=== PATIENT | male | born 1945 | race Caucasian/White ===

== ENCOUNTER → 2016-04-18 | Outpatient (CLI) | payer BC ==
[~2016-04-18] MED LIST: ACET325T96 PO; AMLO-114 PO; ATOR-22 PO; BICA50TA2 PO; CALC667C4 PO; CALCTAB5 PO; DENOINJ INJ; GADAVIST IV PRN; GLC500 PO; LEUP1INJ6 INJ; LISI40TA PO; METO1TAB70 PO; MIRT1TAB27 PO; MULT-506 PO; OXYC1TAB3 PO; PRLSR20 PO; RISP1TAB18 PO; SERT-234 PO; SERT1TAB92 PO; TERA1CAP63 PO; ZOLP10TA6 PO; ZOLP5TAB6 PO
--- NOTE | 2016-04-18 11:43 | DIAGNOSTIC IMAGING REPORT ---
MRI OF THE LUMBAR SPINE COMBO CLINICAL HISTORY: Prostate cancer. Metastatic bone disease. COMPARISON STUDY: Abdominal CT scan and nuclear bone scan dated 11/16/2014. MRI of the abdomen and pelvis dated 08/08/2015. TECHNIQUE: MRI of the lumbar spine is performed utilizing various T1 and T2-weighted sequences in the axial and sagittal planes. Contrast-enhanced sequences are acquired following the IV administration of 11.1 cc of Gadavist. FINDINGS: Lumbar spine: Vertebral body height and alignment are maintained throughout the lumbar spine. Marrow signal intensity is markedly heterogeneous. Large hemangiomas are seen in the bodies of L4 and L5. Additional T1 hyperintense lesions in the body of T12, L2, and S1 also likely represent small hemangiomas. No definite marrow replacement lesion is identified to confirm the presence of bony metastatic disease in the lumbar spine. The transverse and spinous processes appear intact. There is no evidence of spondylolysis. Intervertebral discs: There is degenerative disc desiccation and loss of height seen throughout the lumbar spine. This is greatest at L4-L5. Spinal cord: The visualized spinal cord is normal in morphology and signal intensity. The conus medullaris terminates at the T12-L1 interspace. The nerve roots of the cauda equina are normal in morphology. No abnormal enhancement is identified on the postcontrast images. L1-L2: Unremarkable. L2-L3: Unremarkable. L3-L4: The central canal and neural foramina are patent. Facet arthropathy is of no consequence. There is significant epidural lipomatosis seen posterior to the L4 vertebral body. This causes moderate acquired compromise of the central canal posterior to L4 with a minimum AP diameter of 6 mm. L4-L5: There is a broad-based posterior disc bulge eccentric to the left with annular fissure. In conjunction with hypertrophy of the ligamentum flavum and epidural lipomatosis, there is qybyikfq-fl-udpwer acquired compromise of the central canal at this level. The minimum AP diameter measures up to 6.5 mm. There is bilateral subarticular stenosis, left greater than right, with probable impingement on the exiting left L4 nerve root. Facet arthropathy causes fqmubkkn-lk-ybazlf left and moderate right neural foraminal stenosis. L5-S1: There is significant epidural lipomatosis at L5-S1. This causes ndvuqybc-tz-lkcwkh central canal stenosis at the level of L5 with a minimum AP diameter of 5 mm. A large disc protrusion lateral to the right causes severe right-sided subarticular stenosis and likely impinges on the exiting right L5 nerve root. Facet arthropathy causes dbdlrect-kj-bqsssk right and mild left neural foraminal stenosis. Sacrum: Partially imaged sacrum is normal in morphology. A Tarlov cyst is noted at the level of S2-S3 and measures 1.3 cm. Soft tissues: There is mild fatty atrophy of the paraspinous musculature. There is markedly asymmetric atrophy of the partially imaged right kidney with cuedfxcr-ok-csuybq right-sided hydronephrosis. No retroperitoneal lymphadenopathy is seen. Productive change is noted in the perirectal fat. IMPRESSION: 1. Marrow signal intensity is heterogeneous. Several hemangiomas are identified. 2. There is no definite evidence of osseous metastatic disease involving the lumbosacral spine. 3. Epidural lipomatosis in the lower lumbar region contributes to significant acquired compromise of the central canal. See above. 4. Multilevel lumbosacral spondylosis. See above discussion for detailed ssbii-tk-tbgtu analysis. 5. There is markedly asymmetric cortical atrophy of the hydronephrotic right kidney as compared to the left. This was only partially visualized and was also seen on prior examinations. Dictated: 04/18/2016 10:10 AM Transcribed: 04/18/2016 11:43 AM Bailey Electronically signed by: Jesus Alberto Briones M.D. 04/18/2016 12:09 PM Dictated Date/Time: 04/18/2016 10:10 AM
== END | disposition home or self-care (01) ==
LOC: C.MRI 08:37
PROVIDERS: ATTEND Nurse Practitioner Family
DX: C61 Malignant neoplasm of prostate (principal); C79.51 Secondary malignant neoplasm of bone

== ENCOUNTER → 2016-05-17 | Outpatient (CLI) | payer BC ==
[~2016-05-17] MED LIST changes: -GADAVIST IV PRN; +METO-648 PO; -METO1TAB70 PO
[2016-05-17 10:05] LABS: ALT/SGPT 27 U/L (12-78); BLOOD UREA NITROGEN 16 mg/dl (7-18); BUN/CREATININE RATIO 13.2 (10-20); CALCIUM 8.8 mg/dl (8.5-10.1); CARBON DIOXIDE 27 mmol/L (21-32); CHLORIDE 105 mmol/L (98-107); GLUCOSE 133 mg/dl (70-99); POTASSIUM 3.4 mmol/L (3.5-5.1); SODIUM 142 mmol/L (136-145)
[2016-05-17 10:08] LABS: ALB/GLOB RATIO 1.4 (0.9-2); ALKALINE PHOSPHATASE 37 U/L (45-117); AST/SGOT 16 U/L (15-37)
== END | disposition home or self-care (01) ==
LOC: C.LAB 08:27
PROVIDERS: ATTEND Urology
DX: N13.30 Unspecified hydronephrosis (principal); C61 Malignant neoplasm of prostate

== ENCOUNTER → 2016-05-27 | Outpatient (CLI) | payer BC ==
[~2016-05-27] MED LIST changes: +OPTIRAY 320 IV PRN
--- NOTE | 2016-05-27 10:00 | DIAGNOSTIC IMAGING REPORT ---
CT SCAN OF THE ABDOMEN AND PELVIS WITH IV CONTRAST CLINICAL HISTORY: Prostate cancer. COMPARISON STUDY: Abdominal CT dated 11/16/2014. Abdominal and pelvic MRI dated 08/08/2015. MRI of lumbar spine dated 04/18/2016. TECHNIQUE: Following the IV administration of 119 cc of Optiray 320, CT scan of the abdomen and pelvis is performed from the lung bases to the proximal femora. Images reviewed in the axial, sagittal, and coronal planes. IV contrast was administered without complication. CT DOSE: 1549.93 mGy.cm FINDINGS: Lung bases: The heart is mildly enlarged and without pericardial effusion. The coronary arteries and mitral annulus are densely calcified. There is a tiny hiatal hernia. The lung bases are clear noting dependent atelectasis. Liver: The contrast-enhanced liver is normal in size, contour, and attenuation. A 10 mm cyst is seen in the right lobe on image #102. There is no intrahepatic biliary ductal dilatation. The hepatic veins and portal veins are patent. Gallbladder: Unremarkable. Spleen: Normal in size and attenuation. Pancreas: There is moderate glandular atrophy of the pancreas. Numerous small parenchymal calcifications suggest a history of chronic pancreatitis. Adrenal glands: Unremarkable. Kidneys: There is markedly asymmetric cortical atrophy of the right kidney as compared to the left. There is diminished perfusion of the left right kidney as compared to left. There is severe right hydroureteronephrosis, with the right ureter dilated to a soft tissue lesion which encases the distal right ureter. This has not appreciably changed in appearance from prior examinations. This is best seen on axial images #[id number] and extends at least 2.5 cm in length. There is moderate left hydroureteronephrosis, similar appearance to the 08/08/2015 examination. This is dilated to soft tissue nodularity at the left trigone of the bladder. Abdominal vasculature: The abdominal aorta is normal in course and caliber noting moderate atherosclerotic calcification. Bowel: The small bowel and colon are normal in course and caliber. The appendix is normal. Peritoneum: There is no intraperitoneal free air or abdominal ascites. There is a fat-containing umbilical hernia. Foci of induration within the ventral abdominal pannus are likely related to subcutaneous injections. Lymphadenopathy: There is no retroperitoneal, mesenteric, pelvic sidewall, or inguinal lymphadenopathy. Pelvic viscera: The prostate is diminutive and heterogeneous. Nodularity along the superior margin of the prostate likely represents median lobe hypertrophy. The wall appears thickened and trabeculated suggesting the sequelae of chronic outlet obstruction. Focal soft tissue thickening and nodularity along the posterior bladder wall likely represents urothelial neoplasm. This involves the trigone bilaterally. Skeletal structures: The skeletal structures are osteopenic. There is an osteoblastic lesion identified in the sacrum on image #388. This is new from 11/16/2014. No additional osteoblastic lesions are clearly identified. There is mild to moderate lumbosacral spondylosis. Several bone islands are again noted throughout the pelvis. IMPRESSION: 1. There is no evidence of progressive metastatic disease as compared to the 08/08/2015 examinations. 2. The prostate is diminutive and heterogeneous. Median lobe hypertrophy is suspected. No discrete prostate lesion is identified by CT. 3. The right kidney is markedly atrophic and there is severe right hydroureteronephrosis, unchanged from prior studies. This is likely secondary to an obstructing soft tissue lesion involving the distal right ureter and bladder. 4. Moderate left hydroureteronephrosis is similar to 08/08/2015. This is likely related to an obstructing soft tissue lesion involving the posterior bladder wall and the left trigone. 5. A sclerotic metastatic lesion in the lower sacrum is unchanged from previous. No additional osteoblastic lesions are clearly identified. Electronically signed by: Jesus Alberto Briones M.D. 05/27/2016 9:58 AM Dictated Date/Time: 05/27/2016 9:38 AM
== END | disposition home or self-care (01) ==
LOC: C.CTS 09:11
PROVIDERS: ATTEND Urology
DX: C61 Malignant neoplasm of prostate (principal); N13.30 Unspecified hydronephrosis; M89.9 Disorder of bone, unspecified

== ENCOUNTER → 2016-05-31 | Outpatient (CLI) | payer BC ==
[~2016-05-31] MED LIST changes: -OPTIRAY 320 IV PRN
[2016-05-31 09:54] LABS: BLOOD UREA NITROGEN 16 mg/dl (7-18); BUN/CREATININE RATIO 14.5 (10-20)
== END | disposition home or self-care (01) ==
LOC: C.LAB 08:24
PROVIDERS: ATTEND Urology
DX: D49.4 Neoplasm of unspecified behavior of bladder (principal); N13.30 Unspecified hydronephrosis; C61 Malignant neoplasm of prostate; N28.9 Disorder of kidney and ureter, unspecified

== ENCOUNTER 2016-07-03 14:19 | Emergency (ER) | payer BC ==
[~2016-07-03] VITALS: Ht 168.9 cm; Wt 111.5 kg
[~2016-07-03 14:19] MED LIST changes: -AMLO-114 PO; -ATOR-22 PO; -CALC667C4 PO; -DENOINJ INJ; -GLC500 PO; -LEUP1INJ6 INJ; -MIRT1TAB27 PO; -OXYC1TAB3 PO; -SERT-234 PO; -ZOLP10TA6 PO
[2016-07-03 14:26] VITALS: TEMP 36.5; Ht 168.9 cm; Wt 111.5 kg
--- NOTE | 2016-07-03 14:51 | EMERGENCY ROOM VISIT NOTE ---
History Report prepared by Ludmila: Souleymane Fernandez Under the Supervision of: Dr. Tu Roque D.O. First contact with patient: 14:41 Chief Complaint: HIP PAIN Stated Complaint: RIGHT HIP PAIN/POPPING History of Present Illness The patient is a 70 year old male with a history of prostate cancer who presents to the Emergency Room with complaints of sudden right hip pain that started prior to arrival today. He states that he was lifting something heavy today and heard a snap in his right hip. The patient has had right hip pain since then, and he says that the pain is worsened when he stands up and puts pressure on his right leg. Currently, he says that he does not have any hip pain when staying still. The patient denies any radiation of pain, back pain, or leg pain. He also denies any leg swelling, redness, or numbness. He rates his pain as a 6 out of 10 in severity with movement. The patient has not taken any medications for the pain. He says that he has not had any recent falls. It was noted that the patient takes a medication for his cancer that makes him more susceptible to bone fractures. The patient is on hormone therapy for his prostate. He does not take any blood thinners. Source of History: patient Onset: Prior to arrival today Position: other (right hip) Symptom Intensity: 6/10 pain Timing: other (sudden) Modifying Factors (Worsening): movement Associated Symptoms: No back pain, No numbness (leg) Note: Associated symptoms: Denies radiation of pain, leg pain, leg redness or swelling. Review of Systems See HPI for pertinent positives & negatives. A total of 10 systems reviewed and were otherwise negative. Past Medical & Surgical Medical Problems: (1) HTN (hypertension) (2) Hypertension Nos (3) IBS (irritable bowel syndrome) Family History Diabetes mellitus FH: heart disease FHx: gallbladder disease Kidney disease Kidney stones Social History Smoking Status: Former Smoker Alcohol Use: occasionally Drug Use: none Marital Status: in relationship Housing Status: lives with significant other Occupation Status: employed Current/Historical Medications Scheduled Acetaminophen Tab (Tylenol), 650 MG PO PRN Calcium Carbonate (Caltrate 600), 1 TAB PO DAILY Denosumab (Xgeva), 1 DOSE INJ [id number] Leuprolide Acetate (6 Month) (Lupron Depot), 1 DOSE INJ [id number] Lisinopril (Zestril), 40 MG PO QAM Metformin HCl (Metformin HCl), 1 TAB PO BID Metoprolol Succinate (Toprol Xl), 200 MG PO QAM Multivitamin (Multivitamin), 1 TAB PO QAM Omeprazole (Prilosec), 20 MG PO QAM Sertraline HCl (Sertraline HCl), 100 MG PO QAM Terazosin Hcl (Hytrin), 10 MG PO HS Zolpidem Tartrate (Zolpidem Tartrate), 10 MG PO HS Scheduled PRN Oxycodone Immediate Rel Tab (Roxicodone Ir), 1-2 TAB PO Q4H PRN for Severe Pain Allergies Coded Allergies: Cat Dander (Verified Allergy, Intermediate, itchy eyes, congestion,ASTHMA , 07/03/16) Dust (Verified Allergy, Unknown, MILD ASTHMA SYMPTOMS, 07/03/16) Dairy (Unverified Adverse Reaction, Unknown, DIARRHEA-EATS DAIRY BUT AVOIDS MILK, 07/03/16) Physical Exam Vital Signs Date Time Temp Pulse Resp B/P Pulse Ox O2 Delivery O2 Flow Rate FiO2 07/03/16 16:10 87 18 144/97 98 07/03/16 14:26 36.5 91 18 126/84 98 Room Air Physical Exam GENERAL: Patient is awake, alert, and in no acute distress. Patient is resting comfortably and showing no signs of anxiety EYES: Mild periorbital edema noted, left greater than right. PERRL. EOMI. EARS, NOSE, MOUTH AND THROAT: The nose is without any evidence of any deformity. Mucous membranes are moist tongue is midline NECK: The neck is nontender and supple. RESPIRATORY: Normal respiratory effort is noted there is no evidence of wheezing rhonchi or rales CARDIOVASCULAR: Regular rate and rhythm noted there no murmurs rubs or gallops normal S1 normal S2 GASTROINTESTINAL: The abdomen is soft. Bowel sounds are present in all quadrants. Abdomen is nontender BACK: No midline tenderness or or step-off noted range of motion in flexion extension as well as rotation no signs of muscle spasm noted MUSCULOSKELETAL/EXTREMITIES: Pain over lateral aspect of right hip, no deformity or shortening noted. No pain with range of motion testing. SKIN: There is no obvious evidence of any rash. There are no petechiae, pallor or cyanosis noted. NEUROLOGIC: Patient is awake alert and oriented x3. Medical Decision & Procedures ER Provider Diagnostic Interpretation: X-ray results as stated below per interpretation by me and the radiologist. RIGHT PELVIS/UNILATERAL HIP 2-3VIEWS CLINICAL HISTORY: right hip pain Right pain COMPARISON: None. DISCUSSION: The bones and joint spaces appear intact. There is no evidence of fracture, dislocation or bony disease. There is no evidence for soft tissue swelling. Mild degenerative change of the hips bilaterally. No evidence for acetabular protrusion IMPRESSION: Mild degenerative change of the hips bilaterally. No acute process. Electronically signed by: Maynor Pineda M.D. 07/03/2016 3:23 PM Dictated Date/Time: 07/03/2016 3:19 PM ED Course 1445: The patient was evaluated in room B5. A complete history and physical examination were performed. 1558: Upon reevaluation, the patient is resting comfortably. I discussed the results and treatment plan with him. He verbalized agreement of the treatment plan. He was discharged home. Medical Decision Prior records reviewed and summarized above. Triage Nursing notes reviewed and agree them. Differential diagnosis: Etiologies such as fracture, dislocation, neurovascular compromise, compartment syndrome, soft tissue injury, as well as others were entertained. The patient is a 70-year-old male who presented to the emergency department for an evaluation of right hip pain. The patient was twisting when he heard an audible pop in his right hip. He came to the emergency department with lateral right hip pain. The patient had good range of motion of the hip and x-rays did not reveal any acute bony abdomen abnormalities. He did not wish to have any pain medication at this time because he states at rest he has no pain. He has no skin changes overlying and has no swelling. I discussed the patient's radiographic studies with him. At this time I feel this likely a musculoskeletal injury or possibly a tendinous injury. He was encouraged to rest and avoid any strenuous activity. He doesn't a history of prostate cancer so it is always possible this represents a subclinical pathologic fracture but I highly doubt it because the patient is able to ambulate without difficulty at this time. He was encouraged to rest and avoid any strenuous activity. He was also encouraged to continue all medications as prescribed and follow-up with his primary care physician. He was encouraged to have further imaging such as CAT scan or MRI if symptoms worsen or persist longer than expected. Impression Primary Impression: Hip sprain Scribe Attestation The scribe's documentation has been prepared under my direction and personally reviewed by me in its entirety. I confirm that the note above accurately reflects all work, treatment, procedures, and medical decision making performed by me. Departure Information Dispostion Home / Self-Care Prescriptions Oxycodone Immediate Rel Tab (ROXICODONE IR) 5 Mg Tab 1-2 TAB PO Q4H Y for Severe Pain, #24 TAB Prov: Tu Roque, DO 07/03/16 Referrals Meghan Tompkins M.D. (PCP) Forms HOME CARE DOCUMENTATION FORM, IMPORTANT VISIT INFORMATION, WORK / SCHOOL INSTRUCTIONS Patient Instructions ED Sprain Hip, My [facility] Additional Instructions Rest and avoid any strenuous activity. Call your family to schedule follow- up appointment. I would recommend further testing such as an MRI if symptoms do not improve. Problem Qualifiers Primary Impression: Hip sprain Encounter type: initial encounter Laterality: right Qualified Codes: S73.101A - Unspecified sprain of right hip, initial encounter
[2016-07-03] MEDS ORDERED: GLC500 PO (15:14)
[2016-07-03] MEDS ORDERED: CALC667C4 PO (15:14)
[2016-07-03] MEDS ORDERED: CALCTAB5 PO (15:14)
[2016-07-03] MEDS ORDERED: LEUP1INJ6 INJ (15:16)
[2016-07-03] MEDS ORDERED: DENOINJ INJ (15:16)
--- NOTE | 2016-07-03 15:24 | DIAGNOSTIC IMAGING REPORT ---
RIGHT PELVIS/UNILATERAL HIP 2-3VIEWS CLINICAL HISTORY: right hip pain Right pain COMPARISON: None. DISCUSSION: The bones and joint spaces appear intact. There is no evidence of fracture, dislocation or bony disease. There is no evidence for soft tissue swelling. Mild degenerative change of the hips bilaterally. No evidence for acetabular protrusion IMPRESSION: Mild degenerative change of the hips bilaterally. No acute process. Electronically signed by: Maynor Pineda M.D. 07/03/2016 3:23 PM Dictated Date/Time: 07/03/2016 3:19 PM
[2016-07-03] MEDS ORDERED: OXYC1TAB3 PO (15:58)
[2016-07-03 16:10] VITALS: BP 144/97; PULSE 87; O2SAT 98
== END 2016-07-03 16:12 | disposition home or self-care (01) ==
LOC: C.EDB 14:20
DX: S73.101A Unspecified sprain of right hip, initial encounter (principal); I10 Essential (primary) hypertension; K58.9 Irritable bowel syndrome, unspecified; Z79.84 Long term (current) use of oral hypoglycemic drugs; Z79.899 Other long term (current) drug therapy; Z85.46 Personal history of malignant neoplasm of prostate; Z87.891 Personal history of nicotine dependence; Z82.49 Family history of ischemic heart disease and other diseases of the circulatory system; Z83.3 Family history of diabetes mellitus; Z83.79 Family history of other diseases of the digestive system; Z84.1 Family history of disorders of kidney and ureter; X50.9XXA Other and unspecified overexertion or strenuous movements or postures, initial encounter

== ENCOUNTER 2016-08-20 17:07 | Inpatient (IN) | payer BC ==
[~2016-08-20] VITALS: Ht 167.6 cm; Wt 107.5 kg
[~2016-08-20 17:07] MED LIST changes: -BICA50TA2 PO; +DENOINJ INJ; +GLC500 PO; +LEUP1INJ6 INJ; -METO-648 PO; +METO1TAB70 PO; +OXYC1TAB3 PO; -RISP1TAB18 PO
[2016-08-20] MEDS ORDERED: SODIUM CHLORIDE 0.9% 1000ML 1,000 ML IV STA (17:18)
[2016-08-20] MEDS ORDERED: AMLO-114 PO (17:36)
[2016-08-20] MEDS ORDERED: ZOLP10TA6 PO (17:36)
[2016-08-20] MEDS ORDERED: MIRT1TAB27 PO (17:36)
[2016-08-20] MEDS ORDERED: SERT-234 PO (17:36)
[2016-08-20] MEDS ORDERED: ATOR-22 PO (17:36)
[2016-08-20 17:51] LABS: BASO % 0.3 %; BASO ABS # 0.03 K/uL (0-0.2); COMPLETE YES; EOS % 1.7 %; HEMATOCRIT 37.9 % (42-52); IG% 0.5 %; LYMPH % 20.4 %; MEAN CELL VOLUME 88.3 fL (80-100); MEAN CORPUSCULAR HGB CONC 35.1 g/dl (32-36); MEAN PLATELET VOLUME 10.3 fL (7.4-10.4); MONO % 10.1 %; PLATELET COUNT 194 K/uL (130-400); RED BLOOD COUNT 4.29 M/uL (4.7-6.1); WHITE BLOOD COUNT 10.77 K/uL (4.8-10.8)
--- NOTE | 2016-08-20 17:54 | DIAGNOSTIC IMAGING REPORT ---
CHEST ONE VIEW PORTABLE CLINICAL HISTORY: Weakness. COMPARISON STUDY: Chest radiograph December 05, 2014. FINDINGS: There is no pneumothorax or pleural effusion. Mild elevation of the right hemidiaphragm is unchanged. There is no evidence of pulmonary edema. Cardiomediastinal silhouette is stable. IMPRESSION: No acute cardiopulmonary findings. Electronically signed by: Americo Woodard M.D. 08/20/2016 5:52 PM Dictated Date/Time: 08/20/2016 5:52 PM
[2016-08-20 18:02] LABS: INR 1.1 (0.9-1.1); PARTIAL THROMBOPLASTIN RATIO 0.9; PROTHROMBIN TIME (PATIENT) 11.4 SECONDS (9.0-12.0)
[2016-08-20 18:08] LABS: BUN/CREATININE RATIO 11.2 (10-20); CALCIUM 9.3 mg/dl (8.5-10.1); CREATININE 3.3 mg/dl (0.60-1.40); POTASSIUM 3.5 mmol/L (3.5-5.1)
[2016-08-20 18:15] LABS: URINE APPEARANCE CLEAR (CLEAR); URINE BILIRUBIN NEG (NEG); URINE COLOR YELLOW; URINE NITRITE NEG (NEG); URINE SPECIFIC GRAVITY 1.009 (1.000-1.030); UROBILINOGEN NEG (NEG)
[2016-08-20 18:16] LABS: MANUAL MICROSCOPIC REQUIRED? NO; REVIEW REQ? NO
[2016-08-20] MEDS ORDERED: METOPROLOL TARTRATE 1 MG/ML VIAL IV STA (18:16)
[2016-08-20 18:19] LABS: CKMB/CK RATIO 2.1 (0-3.0); THYROID STIMULATING HORMONE 3.05 uIu/ml (0.300-4.500)
[2016-08-20] MEDS ORDERED: GLUCOSE 40% GEL 15 GM TUBE PO PRN (20:30)
[2016-08-20] MEDS ORDERED: ACETAMINOPHEN 325 MG TAB PO PRN (20:30)
[2016-08-20] MEDS ORDERED: MoRPHine SULFATE 2 MG/ML CARP IV PRN (20:30)
[2016-08-20] MEDS ORDERED: ONDANSETRON INJ 2 MG/ML 2 ML VIAL IV PRN (20:30)
[2016-08-20] MEDS ORDERED: GLUCAGON FOR INJ 1 MG VIAL SQ PRN (20:30)
[2016-08-20] MEDS ORDERED: DEXTROSE 50% 50 ML SYR IV PRN (20:30)
[2016-08-20] MEDS ORDERED: NITROGLYCERIN 0.4 MG SL PER TAB CHARGE SL PRN (20:30)
[2016-08-20] MEDS ORDERED: GLUCOSE 10 TABS/TUBE PO PRN (20:30)
[2016-08-20] MEDS ORDERED: PHARMACY GLYCEMIC MGMT CONSULT PRN (20:44)
[2016-08-20] MEDS: INSULIN ASPART 100 UNITS/ML 3 ML PEN SC SCH (21:00)
[2016-08-20] MEDS ORDERED: INSULIN GLARGINE SOLOSTAR 100 UNITS/ML 3 ML PEN SC SCH (21:00)
[2016-08-20] MEDS: ZOLPIDEM TARTRATE 10 MG TAB PO SCH (21:00)
[2016-08-20] MEDS ORDERED: HEPARIN 25000 UNIT/500 ML D5W ONE (21:57)
[2016-08-20] MEDS ORDERED: HEPARIN 25,000 UNIT/500ML D5W 500 ML IV PRN (22:00)
[2016-08-20] MEDS ORDERED: SODIUM CHLORIDE 0.9% 1000ML 1,000 ML IV SCH (22:30)
[2016-08-20] MEDS ORDERED: IV FLUIDS COMPLETED PRN (22:45)
[2016-08-20 23:16] VITALS: BP 164/109; PULSE 95; TEMP 37; O2SAT 96; Ht 167.6 cm; Wt 107.5 kg
[2016-08-20 23:53] VITALS: BP 160/102; PULSE 95; TEMP 36.9; O2SAT 97
[2016-08-20 23:59] VITALS: O2SAT 97
[2016-08-21] VITALS (8 sets, daily range): BP systolic 133–162; BP diastolic 86–101; PULSE 88–106; TEMP 36.8–37.4; O2SAT 91–97
[2016-08-21] MEDS: ATORVASTATIN 20 MG TAB PO SCH ×2 (00:02→21:12)
[2016-08-21 00:20] LABS: CKMB/CK RATIO 2.7 (0-3.0)
--- NOTE | 2016-08-21 00:50 | EMERGENCY ROOM VISIT NOTE ---
History Report prepared by Ludmila: Rhiannon Hong Under the Supervision of: Dr. Saul Gilmore M.D. First contact with patient: 17:18 Chief Complaint: IRREGULAR HEARTBEAT Stated Complaint: CARDIAC, NAUSEA Nursing Triage Summary: Pt arrives to ER via ALS from [facility] primary care office. Pt c/o nausea off and on since Friday, seen at PCP today and found to have new onset a-fib (rate 80-100). Pt denies chest pain and shortness of breath. History of Present Illness The patient is a 70 year old male who presents to the Emergency Room with complaints of a persistent irregular heart beat that began prior to arrival. The patient states that over the last few days he has not been feeling well, reporting a decrease in appetite, nausea, and diarrhea. He states that he saw a provider at [facility] and was found to be in a new onset atrial fibrillation. The patient states that he was then sent to the emergency department for further evaluation and treatment. He additionally notes that he has had an elevated blood pressure the last few days. The patient states that he was just started on Norvasc. He denies any alcohol use. Pt denies LOC, headache, fevers, chills, diaphoresis, visual changes, neck pain, chest pain, heart palpitations, breathing difficulties, vomiting, abdominal pain, back pain , melena, hematochezia, urinary symptoms, numbness, weakness, lymphadenopathy, rash, or other complaints. Source of History: patient Onset: prior to arrival Position: other (heart) Quality: other (irregular heart beat) Timing: other (persistent) Associated Symptoms: + nausea, + diarrhea Note: Associated Symptoms: decrease in appetite Review of Systems See HPI for pertinent positives and negatives. A total of ten systems were reviewed and were otherwise negative. Past Medical & Surgical Medical Problems: (1) Atrial fibrillation, new onset (2) HTN (hypertension) (3) Hypertension Nos (4) IBS (irritable bowel syndrome) Family History Diabetes mellitus FH: heart disease FHx: gallbladder disease Kidney disease Kidney stones Social History Smoking Status: Former Smoker Alcohol Use: occasionally Drug Use: none Marital Status: in relationship Housing Status: lives with significant other Occupation Status: employed Current/Historical Medications Scheduled Acetaminophen Tab (Tylenol), 650 MG PO PRN Amlodipine (Norvasc), 10 MG PO DAILY Atorvastatin (Lipitor), 20 MG PO HS Denosumab (Xgeva), 1 DOSE INJ [id number] Leuprolide Acetate (6 Month) (Lupron Depot), 1 DOSE INJ [id number] Lisinopril (Zestril), 40 MG PO QAM Metformin HCl (Metformin HCl), 1 TAB PO BIDM Metoprolol Succinate (Toprol Xl), 200 MG PO QAM Omeprazole (Prilosec), 10 MG PO DAILY Sertraline (Zoloft), 100 MG PO QAM Zolpidem Tartrate (Zolpidem Tartrate), 10 MG PO HS Allergies Coded Allergies: Cat Dander (Verified Allergy, Severe, CAN CAUSE ASTHMA ATTACK-itchy eyes, congestion, 08/20/16) Dust (Verified Allergy, Unknown, MILD ASTHMA SYMPTOMS, 08/20/16) Dairy (Verified Adverse Reaction, Unknown, DIARRHEA-EATS DAIRY BUT AVOIDS MILK, 08/20/16) Physical Exam Vital Signs Date Time Temp Pulse Resp B/P (MAP) Pulse Ox O2 Delivery O2 Flow Rate FiO2 08/20/16 18:16 98 160/80 08/20/16 18:00 160/80 08/20/16 17:54 109 22 183/130 98 08/20/16 17:34 95 08/20/16 17:24 98 Room Air 08/20/16 17:13 99 Room Air 08/20/16 17:13 37.0 83 16 177/117 99 Room Air 08/20/16 17:13 99 Room Air Physical Exam GENERAL: Awake, alert, well-appearing, in no distress HENT: Normocephalic, atraumatic. Oropharynx unremarkable. EYES: Normal conjunctiva. Sclera non-icteric. NECK: Supple. No nuchal rigidity. FROM. No JVD. RESPIRATORY: Clear to auscultation. CARDIAC: borderline tachycardic rate, irregular rhythm. Extremities warm and well perfused. Pulses equal. ABDOMEN: Soft, non-distended. No tenderness to palpation. No rebound or guarding. No masses. RECTAL: Deferred. MUSCULOSKELETAL: Chest examination reveals no tenderness. The back is symmetrical on inspection without obvious abnormality. There is no CVA tenderness to palpation. No joint edema. LOWER EXTREMITIES: Calves are equal size bilaterally and non-tender. 1+ lower extremity edema. No discoloration. NEURO: Normal sensorium. No sensory or motor deficits noted. SKIN: No rash or jaundice noted. Medical Decision & Procedures ER Provider Diagnostic Interpretation: X-ray: Per my interpretation, radiologist review. CHEST ONE VIEW PORTABLE CLINICAL HISTORY: Weakness. COMPARISON STUDY: Chest radiograph December 05, 2014. FINDINGS: There is no pneumothorax or pleural effusion. Mild elevation of the right hemidiaphragm is unchanged. There is no evidence of pulmonary edema. Cardiomediastinal silhouette is stable. IMPRESSION: No acute cardiopulmonary findings. Electronically signed by: Americo Woodard M.D. 08/20/2016 5:52 PM Dictated Date/Time: 08/20/2016 5:52 PM Laboratory Results 08/20/16 17:20 Red Blood Count 4.29, Mean Corpuscular Volume 88.3, Mean Corpuscular Hemoglobin 31.0, Mean Corpuscular Hemoglobin Concent 35.1, Mean Platelet Volume 10.3, Neutrophils (%) (Auto) 67.0, Lymphocytes (%) (Auto) 20.4, Monocytes (%) (Auto) 10.1, Eosinophils (%) (Auto) 1.7, Basophils (%) (Auto) 0.3, Neutrophils # (Auto ) 7.22, Lymphocytes # (Auto) 2.20, Monocytes # (Auto) 1.09, Eosinophils # (Auto ) 0.18, Basophils # (Auto) 0.03 08/20/16 17:20 Test 08/20/16 00:00 08/20/16 17:20 08/20/16 18:00 Urine Random Creatinine 40.0 mg/dl Urine Random Sodium 73 mEq/L White Blood Count 10.77 K/uL (4.8-10.8) Red Blood Count 4.29 M/uL (4.7-6.1) Hemoglobin 13.3 g/dL (14.0-18.0) Hematocrit 37.9 % (42-52) Mean Corpuscular Volume 88.3 fL (80-100) Mean Corpuscular Hemoglobin 31.0 pg (25-34) Mean Corpuscular Hemoglobin Concent 35.1 g/dl (32-36) Platelet Count 194 K/uL (130-400) Mean Platelet Volume 10.3 fL (7.4-10.4) Neutrophils (%) (Auto) 67.0 % Lymphocytes (%) (Auto) 20.4 % Monocytes (%) (Auto) 10.1 % Eosinophils (%) (Auto) 1.7 % Basophils (%) (Auto) 0.3 % Neutrophils # (Auto) 7.22 K/uL (1.4-6.5) Lymphocytes # (Auto) 2.20 K/uL (1.2-3.4) Monocytes # (Auto) 1.09 K/uL (0.11-0.59) Eosinophils # (Auto) 0.18 K/uL (0-0.5) Basophils # (Auto) 0.03 K/uL (0-0.2) RDW Standard Deviation 40.7 fL (36.4-46.3) RDW Coefficient of Variation 12.7 % (11.5-14.5) Immature Granulocyte % (Auto) 0.5 % Immature Granulocyte # (Auto) 0.05 K/uL (0.00-0.02) Prothrombin Time 11.4 SECONDS (9.0-12.0) Prothromb Time International Ratio 1.1 (0.9-1.1) Activated Partial Thromboplast Time 24.4 SECONDS (21.0-31.0) Partial Thromboplastin Ratio 0.9 Anion Gap 12.0 mmol/L (3-11) Est Creatinine Clear Calc Drug Dose 23.8 ml/min Estimated GFR () 20.6 Estimated GFR (Non- 17.8 BUN/Creatinine Ratio 11.2 (10-20) Calcium Level 9.3 mg/dl (8.5-10.1) Magnesium Level 2.0 mg/dl (1.8-2.4) Total Bilirubin 0.8 mg/dl (0.2-1) Direct Bilirubin 0.2 mg/dl (0-0.2) Aspartate Amino Transf (AST/SGOT) 19 U/L (15-37) Alanine Aminotransferase (ALT/SGPT) 36 U/L (12-78) Alkaline Phosphatase 45 U/L (45-117) Total Protein 7.2 gm/dl (6.4-8.2) Albumin 4.0 gm/dl (3.4-5.0) Thyroid Stimulating Hormone (TSH) 3.050 uIu/ml (0.300-4.500) Urine Color YELLOW Urine Appearance CLEAR (CLEAR) Urine pH 6.0 (4.5-7.5) Urine Specific [place] 1.009 (1.000-1.030) Urine Protein NEG (NEG) Urine Glucose (UA) NEG (NEG) Urine Ketones NEG (NEG) Urine Occult Blood 1+ (NEG) Urine Nitrite NEG (NEG) Urine Bilirubin NEG (NEG) Urine Urobilinogen NEG (NEG) Urine Leukocyte Esterase NEG (NEG) Urine WBC (Auto) 1-5 /hpf (0-5) Urine RBC (Auto) 0-4 /hpf (0-4) Urine Hyaline Casts (Auto) 0 /lpf (0-5) Urine Epithelial Cells (Auto) 5-10 /lpf (0-5) Urine Bacteria (Auto) NEG (NEG) Laboratory results reviewed by me Medications Administered Medications (Trade) Dose Ordered Sig/Jadon Route Start Time Stop Time Status Last Admin Dose Admin Sodium Chloride 1,000 ml @ 125 mls/hr Q8H STAT IV 08/20/16 17:18 08/20/16 22:54 DC 08/20/16 17:18 125 MLS/HR Metoprolol Tartrate (Lopressor Iv) 5 mg NOW STAT IV 08/20/16 18:16 08/20/16 18:18 DC 08/20/16 18:16 5 MG ECG Indication: other (irregular heart beat) Rate (beats per minute): 92 Rhythm: atrial fibrillation Findings: T-wave inversion (Anterolateral), prolonged QT Comparison ECG Date: 12/05/14 Change: When compared to EKG done on 12/05/14, anterolateral T wave inversions and atrial fibrillation are new. ED Course 1717: Ordered Sodium Chloride 1000 ml @ 125 mls/hr IV. 1725: The patient was evaluated in room C9. A complete history and physical exam was performed. 1815: Ordered Lopressor IV 5 mg IV. 1922: I reevaluated the patient and he is resting comfortably. I discussed the exam findings with him and I discussed the treatment plan. He verbalized complete understanding and agreement. He will be evaluated for further treatment. 1923: I discussed the patients case with Stefanie Biggs. She is going to evaluate the patient for further treatment. Medical Decision Triage Nursing notes reviewed. The patient's presentation and history were concerning for new onset afib,. Etiologies such as ectopy, cardiac dysrhythmia, electrolyte abnormality, thyroid dysfunction, pulmonary embolism, infection, gastrointestinal, as well as others were entertained. Patient was evaluated. His antihypertensive. He was in A. fib with a borderline rapid ventricular response. ECG did show some anterior lateral T- wave inversions. Chest imaging was ordered. He was given a dose of IV metoprolol. The patient had a mild anemia on CBC. His cardiac panel revealed acute renal failure. Cardiac markers are negative. Magnesium was unremarkable and his potassium was 3.5. Chest imaging did not reveal any acute findings. The patient will need further evaluation and management in the hospital. Consultation was placed with the [facility] hospitalist. The patient was evaluated promptly in the Emergency Room for further management. Anticoagulation ordered by internal medicine. Medication Reconciliation: I attest that I have personally reviewed the patient' s current medication list Blood pressure screening: Patient was found to have an elevated blood pressure and was referred to their primary doctor for recheck and further treatment. Consults Time Called: 1919 Consulting Physician: Stefanie Biggs Returned Call: 1923 I discussed the patients case with Stefanie Biggs. She is going to evaluate the patient for further treatment. Impression Primary Impression: New onset atrial fibrillation Additional Impression: Acute renal failure Scribe Attestation The scribe's documentation has been prepared under my direction and personally reviewed by me in its entirety. I confirm that the note above accurately reflects all work, treatment, procedures, and medical decision making performed by me. Departure Information Dispostion Being Evaluated By Hospitalist Referrals Meghan Tompkins M.D. (PCP) Problem Qualifiers
--- NOTE | 2016-08-21 03:34 | History and Physical ---
History & Physical Date & Time of Service: Aug 20, 2016 at 20:32 Chief Complaint: Cardiac, Nausea Primary Care Physician: Meghan Tompkins M.D. History of Present Illness Source: patient, partner, clinic records, hospital records 70 yo diabetic man presents as a transfer from the clinic for new onset atrial fibrillation. Two weeks ago he thought he saw some blood in his urine and went to the clinic for evaluation. He was empirically placed on Bactrim for 4 days until the results came back without infection at which time he stopped the Bactrim. Around this time he reports a couple days of diarrhea. He then states that about 4 days ago he began to feel general malaise and nausea with a decreased appetite. Some diarrhea was reported that was non-bloody, but he denies any vomiting. He has had urinary retention in the past in the setting of prostate cancer with known mets to the bladder. He has had a TURP but no prostatectomy; he is treated with Lupron injections. He reports some increased frequency of urination over the past two weeks and admits to incomplete voiding. Denies polyurina, hematuria, dysuria, pelvic or abdominal or flank pain and no fevers or chills. In the ER a Aaron was placed draining 1L of yellow fluid, however, following this he developed gross hematuria that was villeda red. The heparin, which had been started for new onset atrial fibrillation, was stopped and a Urology consult was placed. The patient reports that he arrived home from work 4 days ago and felt a fluttering in his chest. He reports ever since starting Norvasc and Metformin in Feb/Mar 2016 timeframe, he has noticed this fluttering in his chest which will awaken him from sleep on occasion. It was not associated with other symptoms and never occurred during the day. He currently denies any chest pain or shortness of breath and reports his diarrhea has been mild with only a couple of episodes in the last 24 hours. 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 , [id number], group IV Acute urinary retention, abnormal digital rectal exam Pretreatment PSA 5.67 Prostate biopsy 11/03/2014 Prostate volume 32 Prostate density 0.175 Status: Chronic (7) Spinal stenosis Status: Chronic (8) Urinary incontinence Status: Chronic (9) Urinary retention Status: Chronic Surgical Problems: (1) S/P TURP Status: Chronic Family History Diabetes mellitus FH: bladder cancer BROTHER FH: heart disease FHx: gallbladder disease Kidney disease Kidney stones Social History Smoking Status: Former Smoker Smokeless Tobacco Use: No Alcohol Use: socially Drug Use: none Marital Status: in relationship Housing status: lives with significant other Occupational Status: employed Immunizations History of Influenza Vaccine: Yes Influenza Vaccine Date: Nov 08, 2015 History of Tetanus Vaccine?: Yes Tetanus Immunization Date: Feb 18, 2007 History of Pneumococcal: Yes Pneumococcal Date: Sep 20, 2014 History of Hepatitis B Vaccine: No Multi-Drug Resistant Organisms History of MDRO: No Allergies Coded Allergies: Cat Dander (Verified Allergy, Severe, CAN CAUSE ASTHMA ATTACK-itchy eyes, congestion, 08/20/16) Dust (Verified Allergy, Unknown, MILD ASTHMA SYMPTOMS, 08/20/16) Dairy (Verified Adverse Reaction, Unknown, DIARRHEA-EATS DAIRY BUT AVOIDS MILK, 08/20/16) Home Medications Scheduled Acetaminophen Tab (Tylenol), 650 MG PO PRN Amlodipine (Norvasc), 10 MG PO DAILY Atorvastatin (Lipitor), 20 MG PO HS Denosumab (Xgeva), 1 DOSE INJ [id number] Leuprolide Acetate (6 Month) (Lupron Depot), 1 DOSE INJ [id number] Lisinopril (Zestril), 40 MG PO QAM Metformin HCl (Metformin HCl), 1 TAB PO BIDM Metoprolol Succinate (Toprol Xl), 200 MG PO QAM Omeprazole (Prilosec), 10 MG PO DAILY Sertraline (Zoloft), 100 MG PO QAM Zolpidem Tartrate (Zolpidem Tartrate), 10 MG PO HS Review of Systems At least ten systems were reviewed and negative except as indicated in HPI. Physical Exam Vital Signs Date Time Temp Pulse Resp B/P (MAP) Pulse Ox O2 Delivery O2 Flow Rate FiO2 08/20/16 18:16 98 160/80 08/20/16 18:00 160/80 08/20/16 17:54 109 22 183/130 98 08/20/16 17:34 95 08/20/16 17:24 98 Room Air 08/20/16 17:13 99 Room Air 08/20/16 17:13 37.0 83 16 177/117 99 Room Air 08/20/16 17:13 99 Room Air GEN: WNWD, in no acute distress, alert and appropriate HEENT: NC/AT, PERRL, normal sclerae/conjunctivae, MMM, pharynx non-acute, no LAD , trachea midline, no JVD CARDIO: irreg rhythm, S1/2 heard without m/g/r LUNGS: CTA bilaterally, no crackles, rales or wheezes, good diaphragmatic excursion ABD: soft, non-tender, non-distended, no rebound or guarding, +BS EXTREMITY: RP and DP palpable 2+ bilat, no LE swelling or edema, extremities are warm and well-perfused NEURO: CN 2-12 grossly intact, sensation intact throughout, (reflexes) BR 2/4 bilat, knee 2/4 bilat MUSC: 5/5 strength throughout, no gross focal deficits SKIN: warm and dry Diagnostics Laboratory Results Results Past 24 Hours Test 08/20/16 17:20 08/20/16 18:00 Range/Units White Blood Count 10.77 4.8-10.8 K/uL Red Blood Count 4.29 4.7-6.1 M/uL Hemoglobin 13.3 14.0-18.0 g/dL Hematocrit 37.9 42-52 % Mean Corpuscular Volume 88.3 80-100 fL Mean Corpuscular Hemoglobin 31.0 25-34 pg Mean Corpuscular Hemoglobin Concent 35.1 32-36 g/dl Platelet Count 194 130-400 K/uL Mean Platelet Volume 10.3 7.4-10.4 fL Neutrophils (%) (Auto) 67.0 % Lymphocytes (%) (Auto) 20.4 % Monocytes (%) (Auto) 10.1 % Eosinophils (%) (Auto) 1.7 % Basophils (%) (Auto) 0.3 % Neutrophils # (Auto) 7.22 1.4-6.5 K/uL Lymphocytes # (Auto) 2.20 1.2-3.4 K/uL Monocytes # (Auto) 1.09 0.11-0.59 K/uL Eosinophils # (Auto) 0.18 0-0.5 K/uL Basophils # (Auto) 0.03 0-0.2 K/uL RDW Standard Deviation 40.7 36.4-46.3 fL RDW Coefficient of Variation 12.7 11.5-14.5 % Immature Granulocyte % (Auto) 0.5 % Immature Granulocyte # (Auto) 0.05 0.00-0.02 K/uL Prothrombin Time 11.4 9.0-12.0 SECONDS Prothromb Time International Ratio 1.1 0.9-1.1 Activated Partial Thromboplast Time 24.4 21.0-31.0 SECONDS Partial Thromboplastin Ratio 0.9 Sodium Level 144 136-145 mmol/L Potassium Level 3.5 3.5-5.1 mmol/L Chloride Level 111 98-107 mmol/L Carbon Dioxide Level 21 21-32 mmol/L Anion Gap 12.0 3-11 mmol/L Blood Urea Nitrogen 37 7-18 mg/dl Creatinine 3.30 0.60-1.40 mg/dl Est Creatinine Clear Calc Drug Dose 23.8 ml/min Estimated GFR () 20.6 Estimated GFR (Non- 17.8 BUN/Creatinine Ratio 11.2 10-20 Random Glucose 109 70-99 mg/dl Calcium Level 9.3 8.5-10.1 mg/dl Magnesium Level 2.0 1.8-2.4 mg/dl Total Bilirubin 0.8 0.2-1 mg/dl Direct Bilirubin 0.2 0-0.2 mg/dl Aspartate Amino Transf (AST/SGOT) 19 15-37 U/L Alanine Aminotransferase (ALT/SGPT) 36 12-78 U/L Alkaline Phosphatase 45 45-117 U/L Total Creatine Kinase 56 39-308 U/L Creatine Kinase MB 1.2 0.5-3.6 ng/ml Creatine Kinase MB Ratio 2.1 0-3.0 Troponin I 0.019 0-0.045 ng/ml Total Protein 7.2 6.4-8.2 gm/dl Albumin 4.0 3.4-5.0 gm/dl Thyroid Stimulating Hormone (TSH) 3.050 0.300-4.500 uIu/ml Urine Color YELLOW Urine Appearance CLEAR CLEAR Urine pH 6.0 4.5-7.5 Urine Specific [place] 1.009 1.000-1.030 Urine Protein NEG NEG Urine Glucose (UA) NEG NEG Urine Ketones NEG NEG Urine Occult Blood 1+ NEG Urine Nitrite NEG NEG Urine Bilirubin NEG NEG Urine Urobilinogen NEG NEG Urine Leukocyte Esterase NEG NEG Urine WBC (Auto) 1-5 0-5 /hpf Urine RBC (Auto) 0-4 0-4 /hpf Urine Hyaline Casts (Auto) 0 0-5 /lpf Urine Epithelial Cells (Auto) 5-10 0-5 /lpf Urine Bacteria (Auto) NEG NEG Diagnostic Radiology CHEST ONE VIEW PORTABLE CLINICAL HISTORY: Weakness. COMPARISON STUDY: Chest radiograph December 05, 2014. FINDINGS: There is no pneumothorax or pleural effusion. Mild elevation of the right hemidiaphragm is unchanged. There is no evidence of pulmonary edema. Cardiomediastinal silhouette is stable. IMPRESSION: No acute cardiopulmonary findings. EKG EKG Afib 92, TWI in V2-V6. Impression Assessment and Plan 70 yo M with metastatic prostate cancer presents as a transfer from the outpatient clinic for new onset atrial fibrillation. 1. Atrial fibrillation-new onset. Appears from the history he may have been going in and out of atrial fibrillation for the last 6 months. TSH normal, no obvious source of infection. No breathing difficulties or hypoxia to suggest PE. Denies chest pain and doesn't clinically appears to be ACS. Lytes are within normal limits. Admit to telemetry overnight and trend serial cardiac enzymes (first two sets are negative). Of note, TWI present on EKG. Heparin drip was initially started, however, pt developed significant gross hematuria in his Aaron bag, so this was held. Cardiology consulted to see him in the morning. 2. EDDIE-etiologies include but are not limited to post-obstructive blockage ( incomplete voiding present, has known prostate cancer with bladder mass, h/o urinary retention in the past), Bactrim use, or poor PO intake (less likely as not dry/dehydrated on exam). FeNa is 4% leaning more in the direction of post- obstructive process. Aaron in place, trend PRP in am. Renal u/s ordered for am. IVF infusing. 3. Urinary retention-Aaron in place, has history of this. Urology consulted. 4. Gross hematuria-plan as above. Holding heparin until further evaluation by Urology. 5. Prostate Cancer-treated with Lupron as outpatient 6. Nausea and loose stools-resolved, patient was tolerating solid foods in the ER. 7. Hypertension- slightly elevated, likely situational. Lis held in setting of EDDIE. Cont Norvasc 10, Toprol XL 200mg. 8. DMII-hold metformin, A1C in am. Cont Lantus/ISS per algorithm and consulted glycemic pharmacist. 9. Chronic urinary incontinence-wears Depends at home. Aaron as above. 10. Depression/Anxiety-appears stable. Cont sertraline 100. DVT proph-heparin drip held 2/2 significant hematuria. Full Code Dispo-telemetry. DO Stefanie Henning Hospitalist Level of Care Telemetry Resuscitation Status FULL RESUSCITATION VTE Prophylaxis VTE Risk Assessment Done? Y/N: Yes Risk Level: Moderate Given or contraindicated: Other Anticoagulation
[2016-08-21 05:45] LABS: HEMATOCRIT 38.6 % (42-52); MEAN CELL VOLUME 87.9 fL (80-100); MEAN CORPUSCULAR HEMOGLOBIN 29.4 pg (25-34); MEAN CORPUSCULAR HGB CONC 33.4 g/dl (32-36); MEAN PLATELET VOLUME 10.5 fL (7.4-10.4); PLATELET COUNT 192 K/uL (130-400); RED BLOOD COUNT 4.39 M/uL (4.7-6.1); WHITE BLOOD COUNT 12.55 K/uL (4.8-10.8)
[2016-08-21] MEDS: METOPROLOL SUCC 50MG EXT REL TAB PO SCH (05:54)
[2016-08-21 06:06] LABS: BLOOD UREA NITROGEN 39 mg/dl (7-18); BUN/CREATININE RATIO 11.7 (10-20); CALCIUM 8.6 mg/dl (8.5-10.1); CARBON DIOXIDE 20 mmol/L (21-32); CHLORIDE 111 mmol/L (98-107); GLUCOSE 137 mg/dl (70-99); POTASSIUM 3.4 mmol/L (3.5-5.1); SODIUM 143 mmol/L (136-145)
[2016-08-21 06:11] LABS: CHOLESTEROL 101 mg/dl (0-200); CHOLESTEROL/HDL RATIO 2.6; HDL CHOLESTEROL 39 mg/dl; LDL CHOLESTEROL CALCULATED 20 mg/dl; TRIGLYCERIDES 208 mg/dl (0-150); VERY LOW DENSITY LIPOPROT CALC 42 mg/dl
[2016-08-21 06:41] LABS: ESTIMATED AVERAGE GLUCOSE 140 mg/dl; HA1C FLAG Normal (Normal)
--- NOTE | 2016-08-21 08:08 | DIAGNOSTIC IMAGING REPORT ---
(RENAL)RETROPERITON COMP HISTORY:70 yearsMaleacute urinary retention COMPARISON: CT 05/27/2016. TECHNIQUE: Multiple real-time sonographic images of the kidneys and urinary bladder were obtained assessing grayscale appearance and color flow. FINDINGS: Right kidney again demonstrates multifocal parenchymal thinning and atrophy measuring 11.6 cm in length. Severe right-sided hydronephrosis redemonstrated. No obstructing stone or mass is seen in the right on these images. Left kidney renal parenchyma appears unremarkable measuring 13.7 cm in length. Moderate left hydronephrosis is redemonstrated without change from comparison. Echogenic soft tissue lesion at the base of the urinary bladder is seen, 4.6 x 2.2 cm. No ureteral jets are definitively seen. Urinary bladder volume is approximately 550 mL. The catheter balloon was not visualized per sap solution manager consultant. I IMPRESSION: 1. Stable appearing severe right and moderate left hydroureteronephrosis. 2. Unchanged multifocal parenchymal thinning and scarring of the right kidney. 3. Apparent soft tissue mass involves the base of the urinary bladder. This could be correlated with cystoscopy. The above report was generated using voice recognition software. It may contain grammatical, syntax or spelling errors. Electronically signed by: Jose Antonio Nolan M.D. 08/21/2016 8:07 AM Dictated Date/Time: 08/21/2016 8:01 AM
[2016-08-21] MEDS: PANTOprazole SOD 40 MG TAB PO SCH (08:37)
[2016-08-21] MEDS: SERTRALINE HCL 100 MG TAB PO SCH (08:37)
[2016-08-21] MEDS: AMLODIPINE BESYLATE 5 MG TAB PO SCH (08:37)
[2016-08-21] MEDS: INSULIN ASPART 100 UNITS/ML 3 ML PEN SC SCH ×4 (08:41→21:00)
[2016-08-21] MEDS ORDERED: POTASSIUM CHLORIDE 10 MEQ TABCR PO STA (09:34)
[2016-08-21] MEDS ORDERED: NURSING VERBAL MED ORDER STA (09:46)
[2016-08-21] MEDS ORDERED: HYDROmorphone INJ 1 MG/ML SYR IV SCH (10:00)
[2016-08-21] MEDS ORDERED: LORAZEPAM 2 MG/ML 1 ML VIAL IV SCH (10:00)
--- NOTE | 2016-08-21 10:41 | Urology Consultation ---
History General Date of Service: Aug 21, 2016. Chief Complaint: gross hematuria, UR Primary Care Physician: Meghan Tompkins M.D. Pt seen a urologist before?: Yes (Dr. Rios) If yes, why?: prostate cancer History of Present Illness 70 yo male admitted with a-fib and UR. Pt developed gross hematuria after walton catheter placement. Currently c/o suprapubic pain. Per nursing, PVR of 600ml, and she is unable to adequately irrigate walton catheter. The pt has a hx of prostate cancer for which he sees Dr. Rios. Last seen in May 2016. [place] 4+5 disease with sacral metastasis. Noted to previously have bilateral hydro with normal renal function. [place] on u/s this admission appears stable as compared to CT from May. Cr noted to be elevated at 3.3 from baseline of 1.1-1.2. No improvement since walton placement. The pt is currently being tx with Lupron for his [employer]. Scheduled to see oncology next week. Imaging Imaging: Ultrasound Laboratory Last 24 Hours Test 08/20/16 17:20 08/20/16 18:00 08/20/16 22:59 08/20/16 23:20 White Blood Count 10.77 K/uL Red Blood Count 4.29 M/uL Hemoglobin 13.3 g/dL Hematocrit 37.9 % Mean Corpuscular Volume 88.3 fL Mean Corpuscular Hemoglobin 31.0 pg Mean Corpuscular Hemoglobin Concent 35.1 g/dl Platelet Count 194 K/uL Mean Platelet Volume 10.3 fL Neutrophils (%) (Auto) 67.0 % Lymphocytes (%) (Auto) 20.4 % Monocytes (%) (Auto) 10.1 % Eosinophils (%) (Auto) 1.7 % Basophils (%) (Auto) 0.3 % Neutrophils # (Auto) 7.22 K/uL Lymphocytes # (Auto) 2.20 K/uL Monocytes # (Auto) 1.09 K/uL Eosinophils # (Auto) 0.18 K/uL Basophils # (Auto) 0.03 K/uL RDW Standard Deviation 40.7 fL RDW Coefficient of Variation 12.7 % Immature Granulocyte % (Auto) 0.5 % Immature Granulocyte # (Auto) 0.05 K/uL Prothrombin Time 11.4 SECONDS Prothromb Time International Ratio 1.1 Activated Partial Thromboplast Time 24.4 SECONDS Partial Thromboplastin Ratio 0.9 Sodium Level 144 mmol/L Potassium Level 3.5 mmol/L Chloride Level 111 mmol/L Carbon Dioxide Level 21 mmol/L Anion Gap 12.0 mmol/L Blood Urea Nitrogen 37 mg/dl Creatinine 3.30 mg/dl Est Creatinine Clear Calc Drug Dose 23.8 ml/min Estimated GFR () 20.6 Estimated GFR (Non- 17.8 BUN/Creatinine Ratio 11.2 Random Glucose 109 mg/dl Calcium Level 9.3 mg/dl Magnesium Level 2.0 mg/dl Total Bilirubin 0.8 mg/dl Direct Bilirubin 0.2 mg/dl Aspartate Amino Transf (AST/SGOT) 19 U/L Alanine Aminotransferase (ALT/SGPT) 36 U/L Alkaline Phosphatase 45 U/L Total Creatine Kinase 56 U/L 51 U/L Creatine Kinase MB 1.2 ng/ml 1.4 ng/ml Creatine Kinase MB Ratio 2.1 2.7 Troponin I 0.019 ng/ml 0.020 ng/ml Total Protein 7.2 gm/dl Albumin 4.0 gm/dl Thyroid Stimulating Hormone (TSH) 3.050 uIu/ml Urine Color YELLOW Urine Appearance CLEAR Urine pH 6.0 Urine Specific [place] 1.009 Urine Protein NEG Urine Glucose (UA) NEG Urine Ketones NEG Urine Occult Blood 1+ Urine Nitrite NEG Urine Bilirubin NEG Urine Urobilinogen NEG Urine Leukocyte Esterase NEG Urine WBC (Auto) 1-5 /hpf Urine RBC (Auto) 0-4 /hpf Urine Hyaline Casts (Auto) 0 /lpf Urine Epithelial Cells (Auto) 5-10 /lpf Urine Bacteria (Auto) NEG Bedside Glucose 161 mg/dl Hepatitis C Antibody Screen NEG Test 08/21/16 05:12 08/21/16 06:56 White Blood Count 12.55 K/uL Red Blood Count 4.39 M/uL Hemoglobin 12.9 g/dL Hematocrit 38.6 % Mean Corpuscular Volume 87.9 fL Mean Corpuscular Hemoglobin 29.4 pg Mean Corpuscular Hemoglobin Concent 33.4 g/dl RDW Standard Deviation 40.6 fL RDW Coefficient of Variation 12.7 % Platelet Count 192 K/uL Mean Platelet Volume 10.5 fL Activated Partial Thromboplast Time 26.1 SECONDS Partial Thromboplastin Ratio 1.0 Sodium Level 143 mmol/L Potassium Level 3.4 mmol/L Chloride Level 111 mmol/L Carbon Dioxide Level 20 mmol/L Anion Gap 12.0 mmol/L Blood Urea Nitrogen 39 mg/dl Creatinine 3.30 mg/dl Est Creatinine Clear Calc Drug Dose 22.4 ml/min Estimated GFR () 20.6 Estimated GFR (Non- 17.8 BUN/Creatinine Ratio 11.7 Random Glucose 137 mg/dl Estimated Average Glucose 140 mg/dl Hemoglobin A1c 6.5 % Calcium Level 8.6 mg/dl Total Creatine Kinase 51 U/L Creatine Kinase MB < 0.5 ng/ml Creatine Kinase MB Ratio Troponin I 0.021 ng/ml Triglycerides Level 208 mg/dl Cholesterol Level 101 mg/dl HDL Cholesterol 39 mg/dl LDL Cholesterol, Calculated 20 mg/dl VLDL Cholesterol, Calculated 42 mg/dl Cholesterol/HDL Ratio 2.6 Bedside Glucose 124 mg/dl Problem List Medical Problems: (1) Acute renal failure Status: Acute (2) Hip sprain Status: Acute (3) New onset atrial fibrillation Status: Acute Past History anxiety, cancer - prostate, depression, diabetes, hypertension, other (IBS, spinal stenosis) Past Surgical History: other (TURP) Family History Diabetes mellitus FH: bladder cancer BROTHER FH: heart disease FHx: gallbladder disease Kidney disease Kidney stones Social History Hx Tobacco Use In Past Year?: No Smoking: non-smoker Alcohol: socially Marital status: in relationship Housing status: lives with significant other Occupation status: employed Immunizations History of Influenza Vaccine: Yes Influenza Vaccine Date: Nov 08, 2015 History of Tetanus Vaccine?: Yes Tetanus Immunization Date: Feb 18, 2007 History of Pneumococcal: Yes Pneumococcal Date: Sep 20, 2014 History of Hepatitis B Vaccine: No History of MDRO No Allergies Coded Allergies: Cat Dander (Verified Allergy, Severe, CAN CAUSE ASTHMA ATTACK-itchy eyes, congestion, 08/20/16) Dust (Verified Allergy, Unknown, MILD ASTHMA SYMPTOMS, 08/20/16) Dairy (Verified Adverse Reaction, Unknown, DIARRHEA-EATS DAIRY BUT AVOIDS MILK, 08/20/16) Medications Home Medications: Home Meds and Scripts Medications Dose Route/Sig Max Daily Dose Days Date Category Lipitor (Atorvastatin Calcium) 20 Mg Tab 20 Mg PO HS 08/20/16 Reported Norvasc (Amlodipine Besylate) 10 Mg Tab 10 Mg PO DAILY 08/20/16 Reported Zoloft (Sertraline HCl) 100 Mg Tab 100 Mg PO QAM 08/20/16 Reported Zolpidem Tartrate 10 Mg Tab 10 Mg PO HS 30 08/20/16 Reported Xgeva (Denosumab) 120 Mg/1.7 Ml Inj 1 Dose INJ [id number] 07/03/16 Reported Lupron Depot (Leuprolide Acetate (6 Month)) 45 Mg Inj 1 Dose INJ [id number] 07/03/16 Reported Metformin HCl 500 Mg Tab 1 Tab PO BIDM 07/03/16 Reported Tylenol (Acetaminophen) 325 Mg Tab 650 Mg PO PRN 12/05/14 Reported Zestril (Lisinopril) 40 Mg Tab 40 Mg PO QAM 12/05/14 Reported Prilosec (Omeprazole) 20 Mg Capcr 10 Mg PO DAILY 09/25/14 Reported Toprol Xl (Metoprolol Succinate) 200 Mg Tab 200 Mg PO QAM 09/23/13 Reported Inpatient Medications: Current Inpatient Medications Medications (Trade) Dose Ordered Sig/Jadon Route Start Time Stop Time Status Last Admin Dose Admin Acetaminophen (Tylenol Tab) 650 mg Q4H PRN PO 08/20/16 20:30 09/19/16 20:29 Ondansetron HCl (Zofran Inj) 4 mg Q6H PRN IV 08/20/16 20:30 09/19/16 20:29 Nitroglycerin (Nitrostat Tab) 0.4 mg UD PRN SL 08/20/16 20:30 09/19/16 20:29 Morphine Sulfate (MoRPHine SULFATE INJ) 2 mg Q30M PRN IV 08/20/16 20:30 09/03/16 20:29 Insulin Aspart (novoLOG ASPART) SLIDING SCALE If C... ACHS SC 08/20/16 21:00 09/19/16 20:59 08/21/16 08:41 3 UNITS Glucose (Glucose 40% Gel) 15-30 GRAMS 15 GRAMS... UD PRN PO 08/20/16 20:30 09/19/16 20:29 Glucose (Glucose Chew Tab) 4-8 Tablets 4 Tabl... UD PRN PO 08/20/16 20:30 09/19/16 20:29 Dextrose (Dextrose 50% 50ML Syringe) 25-50ML OF 50% DW IV FOR... UD PRN IV 08/20/16 20:30 09/19/16 20:29 Glucagon (Glucagon Inj) 1 mg UD PRN SQ 08/20/16 20:30 09/19/16 20:29 Miscellaneous Information (Consult Glycemic Management Pharmacy) 1 ea UD PRN N/A 08/20/16 20:44 09/19/16 20:43 Amlodipine Besylate (Norvasc Tab) 10 mg DAILY PO 08/21/16 09:00 09/20/16 08:59 08/21/16 08:37 10 MG Atorvastatin Calcium (Lipitor Tab) 20 mg HS PO 08/20/16 21:00 09/19/16 20:59 08/21/16 00:02 20 MG Metoprolol Succinate (Toprol Xl Tab) 200 mg QAM PO 08/21/16 09:00 09/20/16 08:59 08/21/16 05:54 200 MG Sertraline HCl (Zoloft Tab) 100 mg QAM PO 08/21/16 09:00 09/20/16 08:59 08/21/16 08:37 100 MG Zolpidem Tartrate (Ambien Tab) 10 mg HS PO 08/20/16 21:00 09/19/16 20:59 Pantoprazole Sodium (Protonix Tab) 20 mg QAM PO 08/21/16 09:00 09/20/16 08:59 08/21/16 08:37 20 MG Heparin Sodium/ Dextrose 500 ml @ 29 mls/hr [id number] PRN IV 08/20/16 22:00 09/19/16 21:59 Future Hold 08/20/16 22:20 29 MLS/HR Miscellaneous (Iv Fluids Completed) 1 ea PRN PRN N/A 08/20/16 22:45 08/20/17 22:44 Miscellaneous Information (Nursing Verbal Med Order) 1 ea ONE STAT N/A 08/21/16 09:46 08/21/16 09:47 UNV Review of Systems Review of Systems Constitutional: No fever, No chills Eyes: No double vision Neurological: No dizzy Endocrine: No excessive thirst Gastrointestinal: + abdominal pain (suprapubic discomfort), No nausea, No vomiting Cardiovascular: No chest pain Respiratory: No shortness of breath Skin: No rash Musculoskeletal: No back pain Male : + blood in urine Physical Exam Vital Signs: Vital Signs Past 12 Hours Date Time Temp Pulse Resp B/P (MAP) Pulse Ox O2 Delivery O2 Flow Rate FiO2 08/21/16 07:18 37.1 98 16 162/101 (121) 94 Room Air 08/21/16 04:00 97 Room Air 08/21/16 03:23 36.8 106 20 156/101 (119) 97 Room Air 08/20/16 23:59 97 Room Air 08/20/16 23:53 36.9 95 20 160/102 (121) 97 Room Air 08/20/16 23:16 37.0 95 18 164/109 96 Room Air Physical Exam: General Appearance: no apparent distress Eyes: bilateral eyes normal inspection ENT: hearing grossly normal Neck: no JVD Respiratory/Chest: no respiratory distress, no accessory muscle use Cardiovascular: no JVD Extremities: normal inspection Neurologic/Psychiatric: alert, normal mood/affect, oriented x 3 Skin: normal color Assessment & Plan Assessment & Plan A/P: Gross hematuria, urinary retention, prostate cancer Attempted to place 22Fr 3-way coude walton catheter today. Unfortunately the pt' s phimosis made it difficult to expose his meatus. I was able to partially expose it with help from his RN, and attempt to insert the catheter. Unfortunately I was not able to insert the catheter entirely and met resistance possibly at the bladder neck. Removed catheter and aborted the procedure. Will seek him from Dr. Rios or Dr. Weller to replace walton today.
--- NOTE | 2016-08-21 11:16 | ECHOCARDIOGRAM REPORT ---
*NOTICE TO RECEIVING CONSTITUTION PARTY AGENCY This information is strictly Confidential and protected under [place] law. [place] law prohibits you from making any further disclosure of this information unless further disclosure is expressly permitted by the written consent of the person to whom it pertains or is authorized by law. A general authorization for the release of medical or other information is not sufficient for this purpose. Hospital accepts no responsibility if the information is made available to any other person, INCLUDING THE PATIENT. Interpretation Summary * Name: VONDA GOLDEN Study Date: 08/21/2016 08:40 AM BP: 156/101 mmHg * Patient Location: 40 HR: 98 * : 1945 (M/d/yyyy) Gender: Male Height: 66 in * Age: 70 yrs Ethnicity: CA Weight: 240 lb * Ordering Physician: Sally Otto * Referring Physician: Self, Referred * Performed By: Jessika Thompson RCS * * Reason For Study: A-FIB * BSA: 2.2 m2 * The study was technically adequate. * -- Conclusions -- * Atrial fibrillation with mildly elevated ventricular rate was present during the echocardiogram. * There is mild concentric left ventricular hypertrophy. * The left ventricular wall motion is normal. * Left ventricular systolic function is low normal. * The LV Ejection Fraction = 50-55%. * The left atrium is moderately dilated. * The right atrium is mildly dilated. * Aortic valve sclerosis mild, without significant aortic valvular stenosis. * Mild aortic regurgitation. * There is mild mitral regurgitation. * There is trace tricuspid regurgitation. * Borderline to mild pulmonary hypertension is present. * The pulmonary artery systolic pressure is calculated to be 40 mm Hg. * There is no prior study available for comparison. Procedure Details * A complete two-dimensional transthoracic echocardiogram was performed (2D, M-mode, Doppler and color flow Doppler). * A contrast injection of Definity was performed to improve assessment of LV function. * Contrast was injected into an intravenous site in the left arm. * One vial of Definity ultrasound contrast was diluted in normal saline to a total volume of 10 ml. A total of '2' ml of solution was administered during imaging. * Lot # [id number] of Definity utilized for procedure. * Expiration date SEP 27. * The attending nurse who injected the contrast agent was REBECCA LYONS, RN. Left Ventricle * The left ventricle is normal in size. * There is mild concentric left ventricular hypertrophy. * Left ventricular systolic function is low normal. * Ejection Fraction = 50-55%. * The left ventricular wall motion is normal. Right Ventricle * The right ventricle is normal in size and function. Atria * The left atrium is moderately dilated. * The right atrium is mildly dilated. * There is no evidence of atrial septal defect, but resolution does not allow assessment for a patent foramen ovale. Mitral Valve * There is mild mitral annular calcification. * There is no mitral valve stenosis. * There is mild mitral regurgitation. Tricuspid Valve * The tricuspid valve is normal. * There is no tricuspid stenosis. * There is trace tricuspid regurgitation. * Borderline to mild pulmonary hypertension is present. The pulmonary artery systolic pressure is calculated to be 40 mm Hg. Aortic Valve * The aortic valve is trileaflet. * Aortic valve sclerosis mild, without significant aortic valvular stenosis. * Aortic stenosis is absent. * Mild aortic regurgitation. Pulmonic Valve * The pulmonary valve is not well seen, but the Doppler examination is normal without significant regurgitation or stenosis. Great Vessels * The aortic root and proximal ascending aorta are normal sized. Pericardium/Pleural * There is no pericardial effusion. Great Vessels * Normal inferior vena cava diameter and respiratory variation suggests normal central venous pressure. MMode 2D Measurements and Calculations IVSd 1.2 cm IVSs 1.7 cm LVIDd 4.1 cm LVIDs 2.9 cm LVPWd 1.6 cm LVPWs 1.4 cm IVS/LVPW 0.75 FS 29.3 % EDV(Teich) 75.7 ml ESV(Teich) 32.9 ml EF(Teich) 56.6 % EDV(cubed) 70.7 ml ESV(cubed) 25.0 ml EF(cubed) 64.7 % % IVS thick 38.9 % % LVPW thick -10.66 % LV mass(C)d 221.9 grams LV mass(C)dI 102.6 grams/m\S\2 LV mass(C)s 163.5 grams LV mass(C)sI 75.7 grams/m\S\2 SV(Teich) 42.9 ml SI(Teich) 19.8 ml/m\S\2 SV(cubed) 45.7 ml SI(cubed) 21.2 ml/m\S\2 Ao root diam 3.3 cm Ao root area 8.5 cm\S\2 ACS 2.0 cm LVOT diam 2.0 cm LVOT area 3.2 cm\S\2 LVAd ap4 38.3 cm\S\2 LVLd ap4 8.6 cm EDV(MOD-sp4) 147.4 ml EDV(sp4-el) 144.5 ml LVAs ap4 25.2 cm\S\2 LVLs ap4 7.1 cm ESV(MOD-sp4) 81.1 ml ESV(sp4-el) 75.9 ml EF(MOD-sp4) 45.0 % EF(sp4-el) 47.5 % LVAd ap2 22.2 cm\S\2 LVLd ap2 7.4 cm EDV(MOD-sp2) 55.7 ml EDV(sp2-el) 56.8 ml LVAs ap2 15.6 cm\S\2 LVLs ap2 6.1 cm ESV(MOD-sp2) 32.7 ml ESV(sp2-el) 33.9 ml EF(MOD-sp2) 41.3 % EF(sp2-el) 40.3 % LVLd %diff -16.84 % EDV(MOD-bp) 94.1 ml LVLs %diff -16.06 % ESV(MOD-bp) 54.6 ml EF(MOD-bp) 41.9 % SV(MOD-sp4) 66.3 ml SI(MOD-sp4) 30.7 ml/m\S\2 SV(MOD-sp2) 23.0 ml SI(MOD-sp2) 10.6 ml/m\S\2 SV(MOD-bp) 39.5 ml SI(MOD-bp) 18.3 ml/m\S\2 SV(sp4-el) 68.6 ml SI(sp4-el) 31.7 ml/m\S\2 SV(sp2-el) 22.9 ml SI(sp2-el) 10.6 ml/m\S\2 Doppler Measurements and Calculations MV E max melania 74.5 cm/sec MV P1/2t max melania 96.5 cm/sec MV P1/2t 80.0 msec MVA(P1/2t) 2.7 cm\S\2 MV dec slope 353.4 cm/sec\S\2 MV dec time 0.23 sec Ao V2 max 112.4 cm/sec Ao max PG 5.0 mmHg Ao max PG (full) 1.7 mmHg FER(V,A) 2.6 cm\S\2 FER(V,D) 2.6 cm\S\2 AI max melania 523.9 cm/sec AI max PG 109.8 mmHg AI dec slope 247.4 cm/sec\S\2 AI P1/2t 620.2 msec LV V1 max PG 3.3 mmHg LV V1 max 91.1 cm/sec MR max melania 553.4 cm/sec MR max PG 122.6 mmHg PA V2 max 85.9 cm/sec PA max PG 3.0 mmHg TR max melania 311.0 cm/sec
--- NOTE | 2016-08-21 11:17 | Cardiology Consultation ---
Cardiology Consultation Date of Consultation: Aug 21, 2016 History of Present Illness Willard Walker seen in cardiology consultation per the request of Dr. Otto for the evaluation of newly diagnosed atrial fibrillation, with additional EKG abnormality including new T-wave inversions in the precordial leads V1-V6. The patient's primary care provider is Dr. Meghan Tompkins. He is not previously followed with cardiology. The patient has a history of hypertension, impaired fasting glucose, dyslipidemia, prostate carcinoma with bone metastasis. He apparently follows closely with oncology as well as [facility] urology. He has a history of urinary outflow obstruction. He presented to primary care yesterday with complaints of 4 days of nausea status and diarrhea. Is found to have new lower extremity edema and a regular heart rhythm on examination. EKG performed on 08/20/16 at [facility] as outpatient revealed atrial fibrillation at 80 bpm with new T-wave inversions in leads V1 to V6. Repeat EKGs on arrival to the emergency room and again this morning reveal similar findings of rate controlled atrial fibrillation and new T-wave inversions in the precordial leads. Laboratory studies this admission reveal acute kidney injury with a baseline creatinine of 1.1 mg/dL 06/28/2016 at 3.3 mg/dL today 08/21/16. On arrival to the emergency room, heparin was apparently started for stroke prophylaxis with atrial fibrillation. For catheter placement was then attempted and the patient had gross hematuria prompting discontinuation of unfractionated heparin. History Past Medical History: 1. Hypertension 2. Dyslipidemia 3. Former cigarette smoker having quit in 1987, smoked one half pack per day for 10 years 4. Impaired fasting glucose 5. Metastatic prostate cancer with urinary retention Past Surgical History: 1. Colonoscopy 2. Tonsillectomy remotely in 1949 3. TURP Social History: The patient is a former smoker. Family History: Uncle with history of prostate cancer Father's history of mitral valve replacement History of several family members on blood pressure medications. Review Of Systems See above for pertinent positives & negatives. A total of 10 systems reviewed and were otherwise negative. Allergies Coded Allergies: Cat Dander (Verified Allergy, Severe, CAN CAUSE ASTHMA ATTACK-itchy eyes, congestion, 08/20/16) Dust (Verified Allergy, Unknown, MILD ASTHMA SYMPTOMS, 08/20/16) Dairy (Verified Adverse Reaction, Unknown, DIARRHEA-EATS DAIRY BUT AVOIDS MILK, 08/20/16) Medications Reported Home Medications Medications Dose Route/Sig Max Daily Dose Days Date Category Lipitor (Atorvastatin Calcium) 20 Mg Tab 20 Mg PO HS 08/20/16 Reported Norvasc (Amlodipine Besylate) 10 Mg Tab 10 Mg PO DAILY 08/20/16 Reported Zoloft (Sertraline HCl) 100 Mg Tab 100 Mg PO QAM 08/20/16 Reported Zolpidem Tartrate 10 Mg Tab 10 Mg PO HS 30 08/20/16 Reported Xgeva (Denosumab) 120 Mg/1.7 Ml Inj 1 Dose INJ [id number] 07/03/16 Reported Lupron Depot (Leuprolide Acetate (6 Month)) 45 Mg Inj 1 Dose INJ [id number] 07/03/16 Reported Metformin HCl 500 Mg Tab 1 Tab PO BIDM 07/03/16 Reported Tylenol (Acetaminophen) 325 Mg Tab 650 Mg PO PRN 12/05/14 Reported Zestril (Lisinopril) 40 Mg Tab 40 Mg PO QAM 12/05/14 Reported Prilosec (Omeprazole) 20 Mg Capcr 10 Mg PO DAILY 09/25/14 Reported Toprol Xl (Metoprolol Succinate) 200 Mg Tab 200 Mg PO QAM 09/23/13 Reported Physical Exam Vital Signs (Last 8hrs): Last 8 Hrs Date Time Temp Pulse Resp B/P (MAP) Pulse Ox O2 Delivery O2 Flow Rate FiO2 08/21/16 07:18 37.1 98 16 162/101 (121) 94 Room Air 08/21/16 04:00 97 Room Air 08/21/16 03:23 36.8 106 20 156/101 (119) 97 Room Air General Appearance: Alert and Oriented x3. NAD. Head: Normocephalic Atraumatic. Eyes: PERRLA, EOMI, conjunctiva and sclera clear Neck: Supple. No carotid bruits noted. No JVD. No HJD. Respiratory: Breath sounds clear to auscultation bilaterally. No w/r/r. Cardiovascular: irregular and rhythm. S1 and S2 noted. No murmurs, rubs, gallops. PMI non displace. Abdomen: Normal bowel sounds, soft nontender. no abdominal bruits. Extremities: 1+ bilateral LE edema Neuro: No focal deficits. Psychiatric: Normal affect. Data Last Resulted 08/21/16 05:12 Last Resulted 08/21/16 05:12 Past 24 Hours Test 08/20/16 17:20 08/20/16 23:20 08/21/16 05:12 Range/Units Creatine Kinase MB 1.2 1.4 < 0.5 L 0.5-3.6 ng/ml Creatine Kinase MB Ratio 2.1 2.7 0-3.0 Prothromb Time International Ratio 1.1 0.9-1.1 Prothrombin Time 11.4 9.0-12.0 SECONDS Total Creatine Kinase 56 51 51 39-308 U/L Troponin I 0.019 0.020 0.021 0-0.045 ng/ml Imaging: Kidney ultrasound reveals a stable-appearing severe right and moderate left hydroureteronephrosis EKG: As per history of present illness Telemetry reviewed: AF at 90-110 bpm. Summary of TTecho perforemd 08/21/16 and reviewed independently: Atrial fibrillation with mildly elevated ventricular rate was present during the echocardiogram. There is mild concentric left ventricular hypertrophy. The left ventricular wall motion is normal. Left ventricular systolic function is low normal. Ejection Fraction = 50-55%. The left atrium is moderately dilated. The right atrium is mildly dilated. Aortic valve sclerosis mild, without significant aortic valvular stenosis. Mild aortic regurgitation. There is mild mitral regurgitation. There is trace tricuspid regurgitation. Borderline to mild pulmonary hypertension is present. The pulmonary artery systolic pressure is calculated to be 40 mm Hg. There is no prior study available for comparison. Assessment & Plan Impression: 70-year-old male 1. Rate controlled, newly diagnosed, atrial fibrillation, chronicity unknown. 2. New diffuse T-wave inversions in the precordial leads V1 to V6, suggestive of ischemia 3. Acute kidney injury, perhaps due to urinary outflow tract obstruction. 4. Metastatic prostate carcinoma 5. Anticoagulation on hold due to gross hematuria with Aaron catheter insertion. Recommendations: The patient decided transthoracic echocardiogram which excludes the presence of the cardiomyopathy. His ejection fraction falls within the lower limit of normal. I therefore do not think his presentation with edema is suggestive of a new onset of cardiomyopathy. The patient has noted onset of ankle edema since starting amlodipine within the last year. In the future, an alternative antihypertensive to amlodipine may have to be considered, but given his current acute kidney injury, I'm not change this for now. He has been on metoprolol on a chronic basis for control of hypertension for years, and this appears to be relatively effective in controlling rate with his atrial fibrillation. He appears to be relatively symptomatically from atrial fibrillation standpoint I'm not certain that the hemodynamic consequences of being in atrial fibrillation explain his nauseousness or acute kidney injury. Regarding stroke prophylaxis, unfortunately is not a candidate for aspirin therapy or anticoagulation at present and perhaps even in the near future looking ahead. Regarding the abnormal T-wave changes on EKG, he is not a candidate for further ischemic workup as he would not be a candidate for antiplatelet therapy/ revascularization at present given ongoing concerns of potential hematuria until this is resolved. He does not describe any angina. I'm not certain if he perhaps has contracted a viral illness that made him nauseous and therefore he is not eating and drinking well into acute kidney injury or perhaps this can all be explained from his urinary outflow tract obstruction with resultant acute kidney injury and nauseousness as a result of this. Neurology input is noted and appreciated. As noted for catheter insertion was unsuccessful as night and it was attempted again this morning. Neurology plans to come around and try again later today. The patient has received at least 1 L of normal saline and his fluids were discontinued. I do think he would benefit from IV fluids now that we know that his ejection fraction is preserved. It may be reasonable however to wait until Aaron catheter is placed before resume IV fluid resuscitation. Luis Alfredo Schafer DO, FACC, FACOI Associate [facility]
--- NOTE | 2016-08-21 12:14 | Pharmacy Progress Note ---
Glycemic Control Intl Consult Date of Service Aug 21, 2016. Scope Glycemic Pharmacist consulted by Dr Otto on 08/20/2016 for glycemic control and to write orders per [facility] inpatient glycemic control protocol Objective Weight (Kilograms): 96.800 Accuchecks BSG (last 24hrs): Test 08/20/16 17:20 08/20/16 22:59 08/21/16 05:12 08/21/16 06:56 Random Glucose 109 mg/dl (70-99) 137 mg/dl (70-99) Bedside Glucose 161 mg/dl (70-99) 124 mg/dl (70-99) Laboratory Data (last 24hrs) Test 08/20/16 17:20 08/21/16 05:12 Anion Gap 12.0 mmol/L 12.0 mmol/L BUN/Creatinine Ratio 11.2 11.7 Blood Urea Nitrogen 37 mg/dl 39 mg/dl Creatinine 3.30 mg/dl 3.30 mg/dl Potassium Level 3.5 mmol/L 3.4 mmol/L Sodium Level 144 mmol/L 143 mmol/L White Blood Count 10.77 K/uL 12.55 K/uL Red Blood Count 4.29 M/uL Hemoglobin 13.3 g/dL Hematocrit 37.9 % Mean Corpuscular Volume 88.3 fL Mean Corpuscular Hemoglobin 31.0 pg Mean Corpuscular Hemoglobin Concent 35.1 g/dl Platelet Count 194 K/uL Mean Platelet Volume 10.3 fL Neutrophils (%) (Auto) 67.0 % Lymphocytes (%) (Auto) 20.4 % Monocytes (%) (Auto) 10.1 % Eosinophils (%) (Auto) 1.7 % Basophils (%) (Auto) 0.3 % Neutrophils # (Auto) 7.22 K/uL Lymphocytes # (Auto) 2.20 K/uL Monocytes # (Auto) 1.09 K/uL Eosinophils # (Auto) 0.18 K/uL Basophils # (Auto) 0.03 K/uL Hemoglobin A1c 6.5 % HbA1c Test 08/21/16 05:12 Hemoglobin A1c 6.5 % (4.5-5.6) H Recent Pertinent Medications Outpatient Anti-diabetic Regimen: * metformin 500 mg PO BID The patient is currently receiving: * Basal insulin: Lantus 0-10 units every 24 hour in the evening ( give 0 units if blood sugar less than 180 mg/dL; give 10 units if blood sugar greater than or equal to 180 mg/dL) * Correctional Insulin: Novolog Correction per scale ACHS Goal Range: Low 140 mg/dL - High 180 mg/dL Correction Factor: 20 mg/dL/unit * Prandial insulin: Per carb ratio of 1 unit per -- grams CHO consumed Risk Factors for Insulin Resistance: * IVF: heparin drip -- currently on hold due to hematuria * Diet: type 2 diabetic diet Assessment & Plan ASSESSMENT: * ADA & AACE recommend a goal blood sugar range 140-180 mg/dl for the majority of critically ill & non-critically ill patients. However, more stringent targets may be selected in individual cases. Will utilize more stringent goal of 110-140mg/dl based on patient age & comorbidities. Additionally, tighter glycemic control is warranted for patient's newly diagnosed atrial fibrillation. * Mr Walker is a 70 y/o M admitted 08/20/2016 with new onset atrial fibrillation. He has a PMH significant to prostate CA s/p TURP, hypertension, and IBS. He was admitted and placed on a heparin drip. The patient developed hematuria, and the heparin drip was subsequently held. * His blood sugars yesterday were 109 and 161 mg/dL. His fasting this morning is 137 mg/dL which is elevated but in his goal range. The patient's HbA1C as an outpatient is well controlled which indicates that he is most likely insulin sensitive. I will start correctional insulin with values between weight based stress of 1 and 2. I will add Lantus coverage if the patient has two blood sugars greater than 180 mg/dL. PLAN FOR INPATIENT GLYCEMIC CONTROL: * Holding outpatient oral diabetes medications * d/c Lantus coverage for now, resume if has blood sugars greater than 180 mg/dL * Correctional Insulin with NOVOLOG per scale ACHS * TIGHTEN Goal Range: Low 110 mg/dL - High 140 mg/dL * LOOSEN Correction Factor: 30 mg/dL/unit * ADD Nutritional / Prandial insulin per carb ratio of 1 unit per 10 grams CHO consumed Recommendations for Discharge * As Mr Walker's HbA1C is within goal considering his co-morbidities, he is reasonable for him to be discharged on his home metformin LONG KIDNEY FUNCTION RETURNS TO BASELINE. If his kidney function does, it is reasonable to start a different oral agent (such as Januvia) or a GLP-1 agent (such as Byetta) . * It would be prudent to avoid sulfonylurea due to kidney function and thiazolidinedione due to his cardiac history. Thank you.
--- NOTE | 2016-08-21 13:25 | Progress Note ---
Progress Note Date of Service Aug 21, 2016. Progress Note Pt with clot retention I was unable to get a 20 f 3way cath in so 18f coudae walton placed Irrigated with 4 liters of normal saline until clear will have nurses irrigate walton Q2 hours and prn
--- NOTE | 2016-08-21 18:58 | Progress Note ---
Internal Med Progress Note Date of Service: Aug 21, 2016. Provider Documentation: SUBJECTIVE: The patient was seen and examined OBJECTIVE: Vital Signs-as noted below Exam: General-No apparent distress Eyes-normal ENT-normal Neck-supple Lungs-Clear to ausucltate bilaterally Heart-Irregular,no murmur Abdomen-Benign,mildly tender renal angles Extremities-Trace edema bilaterally Neuro-AAOc3 Lab data as noted below. ASSESSMENT & PLAN: Atrial fibrillation-new onset. Occasional palpitation Denies any Chest pain Duration unknown No Heparin due to Hematuria Continue BB Cardiology consult-appreciated EDDIE- With Bilateral Hydronephrosis and Hydroureters Secondary to ongoing obstructive symptoms Renal u/s:1. Stable appearing severe right and moderate left hydroureteronephrosis. 2. Unchanged multifocal parenchymal thinning and scarring of the right kidney. 3. Apparent soft tissue mass involves the base of the urinary bladder. This could be correlated with cystoscopy. Continue IVF Gross hematuria with H/O Prostate Cancer-treated with Lupron as outpatient Urinary retention-Aaron in place, has history of this. Urology consulted. Holding heparin until further evaluation by Urology. Hypertension- slightly elevated, likely situational. Lis held in setting of EDDIE. Cont Norvasc 10, Toprol XL 200mg. DMII-hold metformin, A1C in am. Cont Lantus/ISS per algorithm and consulted glycemic pharmacist. Depression/Anxiety-appears stable. Cont sertraline 100. DVT proph-heparin drip held 2/2 significant hematuria. Full Code Dispo Awaited Vital Signs: Date Time Temp Pulse Resp B/P (MAP) Pulse Ox O2 Delivery O2 Flow Rate FiO2 08/21/16 15:46 Room Air 08/21/16 15:26 37.0 91 18 133/86 (102) 91 Room Air 08/21/16 14:44 88 143/89 (107) 08/21/16 12:00 Room Air 08/21/16 11:16 37.0 98 18 160/95 (116) 91 Room Air 08/21/16 08:00 Room Air 08/21/16 07:18 37.1 98 16 162/101 (121) 94 Room Air 08/21/16 04:00 97 Room Air 08/21/16 03:23 36.8 106 20 156/101 (119) 97 Room Air 08/20/16 23:59 97 Room Air 7/11/17 23:53 36.9 95 20 160/102 (121) 97 Room Air 08/20/16 23:16 37.0 95 18 164/109 96 Room Air 08/20/16 20:32 99 18 98 Room Air 158/100 Lab Results: Results Past 24 Hours Test 08/20/16 22:59 08/20/16 23:20 08/21/16 05:12 08/21/16 06:56 Range/Units Bedside Glucose 161 124 70-99 mg/dl Total Creatine Kinase 51 51 39-308 U/L Creatine Kinase MB 1.4 < 0.5 0.5-3.6 ng/ml Creatine Kinase MB Ratio 2.7 0-3.0 Troponin I 0.020 0.021 0-0.045 ng/ml Hepatitis C Antibody Screen NEG NEG White Blood Count 12.55 4.8-10.8 K/uL Red Blood Count 4.39 4.7-6.1 M/uL Hemoglobin 12.9 14.0-18.0 g/dL Hematocrit 38.6 42-52 % Mean Corpuscular Volume 87.9 80-100 fL Mean Corpuscular Hemoglobin 29.4 25-34 pg Mean Corpuscular Hemoglobin Concent 33.4 32-36 g/dl RDW Standard Deviation 40.6 36.4-46.3 fL RDW Coefficient of Variation 12.7 11.5-14.5 % Platelet Count 192 130-400 K/uL Mean Platelet Volume 10.5 7.4-10.4 fL Activated Partial Thromboplast Time 26.1 21.0-31.0 SECONDS Partial Thromboplastin Ratio 1.0 Sodium Level 143 136-145 mmol/L Potassium Level 3.4 3.5-5.1 mmol/L Chloride Level 111 98-107 mmol/L Carbon Dioxide Level 20 21-32 mmol/L Anion Gap 12.0 3-11 mmol/L Blood Urea Nitrogen 39 7-18 mg/dl Creatinine 3.30 0.60-1.40 mg/dl Est Creatinine Clear Calc Drug Dose 22.4 ml/min Estimated GFR () 20.6 Estimated GFR (Non- 17.8 BUN/Creatinine Ratio 11.7 10-20 Random Glucose 137 70-99 mg/dl Estimated Average Glucose 140 mg/dl Hemoglobin A1c 6.5 4.5-5.6 % Calcium Level 8.6 8.5-10.1 mg/dl Triglycerides Level 208 0-150 mg/dl Cholesterol Level 101 0-200 mg/dl HDL Cholesterol 39 mg/dl LDL Cholesterol, Calculated 20 mg/dl VLDL Cholesterol, Calculated 42 mg/dl Cholesterol/HDL Ratio 2.6 Test 08/21/16 11:18 08/21/16 16:40 Range/Units Bedside Glucose 118 135 70-99 mg/dl
[2016-08-21] MEDS: ZOLPIDEM TARTRATE 10 MG TAB PO SCH (21:12)
[2016-08-22 03:15] VITALS: BP 139/95; PULSE 94; TEMP 37.4; O2SAT 93
[2016-08-22 06:33] LABS: HEMATOCRIT 36.4 % (42-52); MEAN CELL VOLUME 88.3 fL (80-100); MEAN CORPUSCULAR HEMOGLOBIN 30.8 pg (25-34); MEAN CORPUSCULAR HGB CONC 34.9 g/dl (32-36); MEAN PLATELET VOLUME 10.5 fL (7.4-10.4); PLATELET COUNT 166 K/uL (130-400); RED BLOOD COUNT 4.12 M/uL (4.7-6.1); WHITE BLOOD COUNT 11.34 K/uL (4.8-10.8)
[2016-08-22 06:42] LABS: PARTIAL THROMBOPLASTIN RATIO 1.1
[2016-08-22 06:59] LABS: BUN/CREATININE RATIO 12.4 (10-20); CALCIUM 8.2 mg/dl (8.5-10.1); CREATININE 3.6 mg/dl (0.60-1.40); MAGNESIUM 1.9 mg/dl (1.8-2.4); POTASSIUM 3.6 mmol/L (3.5-5.1)
[2016-08-22 07:59] VITALS: BP_SYST 137; BP_SYST 151; BP_DIAS 107; BP_DIAS 99; PULSE 103; TEMP 36.8; O2SAT 94
--- NOTE | 2016-08-22 08:01 | Progress Note ---
Subjective Date of Service: Aug 22, 2016. Subjective Pt evaluation today including: conversation w/ patient, chart review Voiding: walton catheter in place (patent, draining light pink-yellow urine) 70 yo male with prostate cancer, UR, and gross hematuria. Difficult walton placement by Dr. Weller yesterday. Walton now draining light pink to yellow urine. H&H stable at 12.7 and 36.4. Cr noted to have increased to 3.6 today from 3.3 yesterday unfortunately. Pt denies pain. Problem List Medical Problems: (1) Acute renal failure Status: Acute (2) Hip sprain Status: Acute (3) New onset atrial fibrillation Status: Acute Review of Systems Constitutional: No fever, No chills Respiratory: No shortness of breath Cardiac: No chest pain Abdomen: No pain, No nausea, No vomiting Male : + hematuria Heme: No abnormal bleeding/bruising Objective Vital Signs Date Time Temp Pulse Resp B/P (MAP) Pulse Ox O2 Delivery O2 Flow Rate FiO2 08/22/16 04:00 Room Air 08/22/16 03:15 37.4 94 21 139/95 (110) 93 Room Air 08/22/16 00:00 Room Air 08/21/16 23:18 37.1 91 16 135/95 (108) 94 Room Air 08/21/16 20:01 37.4 97 16 153/94 (113) 92 Room Air 08/21/16 20:00 Room Air 08/21/16 15:46 Room Air 08/21/16 15:26 37.0 91 18 133/86 (102) 91 Room Air 08/21/16 14:44 88 143/89 (107) 08/21/16 12:00 Room Air 08/21/16 11:16 37.0 98 18 160/95 (116) 91 Room Air 08/21/16 08:00 Room Air Physical Exam General Appearance: no apparent distress Eyes: normal inspection ENT: hearing grossly normal Neck: no JVD Respiratory/Chest: no respiratory distress, no accessory muscle use Cardiovascular: no JVD Extremities: normal inspection Neurologic/Psychiatric: alert, normal mood/affect, oriented x 3 Skin: normal color Laboratory Results Last 24 Hours Test 08/21/16 11:18 08/21/16 16:40 08/21/16 20:04 08/21/16 21:11 Bedside Glucose 118 mg/dl 135 mg/dl 147 mg/dl 131 mg/dl Test 08/22/16 06:02 08/22/16 06:33 White Blood Count 11.34 K/uL Red Blood Count 4.12 M/uL Hemoglobin 12.7 g/dL Hematocrit 36.4 % Mean Corpuscular Volume 88.3 fL Mean Corpuscular Hemoglobin 30.8 pg Mean Corpuscular Hemoglobin Concent 34.9 g/dl RDW Standard Deviation 41.5 fL RDW Coefficient of Variation 12.8 % Platelet Count 166 K/uL Mean Platelet Volume 10.5 fL Activated Partial Thromboplast Time 27.8 SECONDS Partial Thromboplastin Ratio 1.1 Sodium Level 142 mmol/L Potassium Level 3.6 mmol/L Chloride Level 111 mmol/L Carbon Dioxide Level 17 mmol/L Anion Gap 14.0 mmol/L Blood Urea Nitrogen 45 mg/dl Creatinine 3.60 mg/dl Est Creatinine Clear Calc Drug Dose 21.8 ml/min Estimated GFR () 18.6 Estimated GFR (Non- 16.0 BUN/Creatinine Ratio 12.4 Random Glucose 118 mg/dl Calcium Level 8.2 mg/dl Magnesium Level 1.9 mg/dl Bedside Glucose 118 mg/dl Assessment and Plan A/P: Metastatic prostate cancer, gross hematuria, urinary retention, ARF AFVSS. Hematuria improving today. Will continue to observe for now and avoid OR. Leave walton catheter in place, and continue hand irrigation by nursing staff q2hrs. Consider nephrology consult for worsening renal function. ROWE should currently be managed with walton in place. Previous hydro appears stable on renal u/s. Will provide a diet for the pt today. NPO after midnight. Will continue to follow along with primary service.
[2016-08-22] MEDS: INSULIN ASPART 100 UNITS/ML 3 ML PEN SC SCH ×4 (08:04→20:24)
[2016-08-22] MEDS: METOPROLOL SUCC 50MG EXT REL TAB PO SCH (08:05)
[2016-08-22] MEDS: AMLODIPINE BESYLATE 5 MG TAB PO SCH (08:06)
[2016-08-22] MEDS: SERTRALINE HCL 100 MG TAB PO SCH (08:06)
[2016-08-22] MEDS: PANTOprazole SOD 40 MG TAB PO SCH (08:06)
--- NOTE | 2016-08-22 09:34 | Progress Note ---
Internal Med Progress Note Date of Service: Aug 22, 2016. Provider Documentation: SUBJECTIVE: The patient was seen and examined Denies any symptoms Hematuria is improving Heart rate is stable OBJECTIVE: Vital Signs-as noted below Exam: General-No apparent distress Eyes-normal ENT-normal Neck-supple Lungs-Clear to ausucltate bilaterally Heart-Irregular,no murmur Abdomen-Benign,mildly tender renal angles Extremities-Trace edema bilaterally Neuro-AAOc3 Lab data as noted below. ASSESSMENT & PLAN: Atrial fibrillation-new onset. Occasional palpitation Denies any Chest pain Duration unknown No Heparin due to Hematuria Continue BB for rate control and for High BP Cardiology consult-appreciated Remains free from symptoms EDDIE- With Bilateral Hydronephrosis and Hydroureters Secondary to ongoing obstructive symptoms Renal u/s:1. Stable appearing severe right and moderate left hydroureteronephrosis. 2. Unchanged multifocal parenchymal thinning and scarring of the right kidney. 3. Apparent soft tissue mass involves the base of the urinary bladder. This could be correlated with cystoscopy. Renal function is getting worse Will involve Nephrology Continue IVF Gross hematuria with H/O Prostate Cancer-treated with Lupron as outpatient Urinary retention-Aaron in place, has history of this. Urology consulted. Holding heparin until further evaluation by Urology. Hematuria is improving Hypertension- Slightly elevated, likely situational. Lisinopril held in setting of EDDIE. Cont Norvasc 10, Toprol XL 200mg. DMII-hold metformin, A1C in am-6.5. Cont Lantus/ISS per algorithm and consulted glycemic pharmacist. Depression/Anxiety-appears stable. Cont sertraline 100. DVT proph-heparin drip held 2/2 significant hematuria. Full Code Dispo Awaited Vital Signs: Date Time Temp Pulse Resp B/P (MAP) Pulse Ox O2 Delivery O2 Flow Rate FiO2 08/22/16 08:00 Room Air 08/22/16 07:59 36.8 103 16 151/107 (122) 94 Room Air 137/99 (112) 08/22/16 04:00 Room Air 08/22/16 03:15 37.4 94 21 139/95 (110) 93 Room Air 08/22/16 00:00 Room Air 08/21/16 23:18 37.1 91 16 135/95 (108) 94 Room Air 08/21/16 20:01 37.4 97 16 153/94 (113) 92 Room Air 08/21/16 20:00 Room Air 08/21/16 15:46 Room Air 08/21/16 15:26 37.0 91 18 133/86 (102) 91 Room Air 08/21/16 14:44 88 143/89 (107) 08/21/16 12:00 Room Air 08/21/16 11:16 37.0 98 18 160/95 (116) 91 Room Air Lab Results: Results Past 24 Hours Test 08/21/16 11:18 08/21/16 16:40 08/21/16 20:04 08/21/16 21:11 Range/Units Bedside Glucose 118 135 147 131 70-99 mg/dl Test 08/22/16 06:02 08/22/16 06:33 Range/Units White Blood Count 11.34 4.8-10.8 K/uL Red Blood Count 4.12 4.7-6.1 M/uL Hemoglobin 12.7 14.0-18.0 g/dL Hematocrit 36.4 42-52 % Mean Corpuscular Volume 88.3 80-100 fL Mean Corpuscular Hemoglobin 30.8 25-34 pg Mean Corpuscular Hemoglobin Concent 34.9 32-36 g/dl RDW Standard Deviation 41.5 36.4-46.3 fL RDW Coefficient of Variation 12.8 11.5-14.5 % Platelet Count 166 130-400 K/uL Mean Platelet Volume 10.5 7.4-10.4 fL Activated Partial Thromboplast Time 27.8 21.0-31.0 SECONDS Partial Thromboplastin Ratio 1.1 Sodium Level 142 136-145 mmol/L Potassium Level 3.6 3.5-5.1 mmol/L Chloride Level 111 98-107 mmol/L Carbon Dioxide Level 17 21-32 mmol/L Anion Gap 14.0 3-11 mmol/L Blood Urea Nitrogen 45 7-18 mg/dl Creatinine 3.60 0.60-1.40 mg/dl Est Creatinine Clear Calc Drug Dose 21.8 ml/min Estimated GFR () 18.6 Estimated GFR (Non- 16.0 BUN/Creatinine Ratio 12.4 10-20 Random Glucose 118 70-99 mg/dl Calcium Level 8.2 8.5-10.1 mg/dl Magnesium Level 1.9 1.8-2.4 mg/dl Bedside Glucose 118 70-99 mg/dl
[2016-08-22 11:52] VITALS: BP 146/96; PULSE 97; TEMP 37; O2SAT 92
--- NOTE | 2016-08-22 14:00 | Cardiology Follow-Up ---
Subjective General Date of Service: Aug 22, 2016. Chief Complaint: gross hematuria, UR Pt evaluation today including: conversation w/ patient, physical exam History of Present Illness The patient is a 70 year old male seen in follow up. Patient with much more energy today. Aaron catheter draining blood tinged urine that is improved compared to immediately after catheter was placed yesterday. Telemetry reveals rate controlled AF. Allergies Coded Allergies: Cat Dander (Verified Allergy, Severe, CAN CAUSE ASTHMA ATTACK-itchy eyes, congestion, 08/20/16) Dust (Verified Allergy, Unknown, MILD ASTHMA SYMPTOMS, 08/20/16) Dairy (Verified Adverse Reaction, Unknown, DIARRHEA-EATS DAIRY BUT AVOIDS MILK, 08/20/16) Social History Smoking Status: Former Smoker Hx Tobacco Use In Past Year?: No Hx Alcohol Use - Type And Amou: No Hx Substance Use - Type And Am: No Problem List Medical Problems: (1) Acute renal failure Status: Acute (2) Hip sprain Status: Acute (3) New onset atrial fibrillation Status: Acute Physical Exam Vital Signs Last Vital Signs Documentation Date Time Temp Pulse Resp B/P (MAP) Pulse Ox O2 Delivery O2 Flow Rate FiO2 08/22/16 12:00 Room Air 08/22/16 11:52 37.0 97 16 146/96 (113 92 Physical Exam Constitutional: Level of Distress: NAD Neck: supple Lungs: Auscultation: no wheezing, no rales/crackles, no rhonchi Cardiovascular: Heart Auscultation: RRR, no murmurs, irregular rate rhythm Abdomen: Inspection & Palpation: soft, non-distended Extremities: no edema, pertinent finding (no focal deficits ) Assessment and Plan Assessment and Plan Impression: 70-year-old male 1. Rate controlled, newly diagnosed, atrial fibrillation, chronicity unknown. 2. New diffuse T-wave inversions in the precordial leads V1 to V6, suggestive of ischemia 3. Acute kidney injury, perhaps due to urinary outflow tract obstruction. 4. Metastatic prostate carcinoma 5. Anticoagulation on hold due to gross hematuria with Aaron catheter insertion. Plan: Renal function worse by labs studies. Prior baseline creatinine was 1.1 mg/dL on 06/28/2016 --> 3.3 mg/dL 08/21/16 --> 3.6 mg/dl 08/22/16. Pt in IVF on admission but fluids yesterday. Given echo findings of normal LVEF recommend IVFluids with normal saline. I discussed with Dr Payne who is going to order. SCDs for DVT prophylaxis , no pharm prophylaxis due to hematuria. Not a candidate for anticoagulation for stroke prevention due to hematuria. Not a candidate for further ischemic work up of abnormal T waves on EKG due to hematuria. Laboratory Results Last 24 Hours Test 08/21/16 16:40 08/21/16 20:04 08/21/16 21:11 08/22/16 06:02 Bedside Glucose 135 mg/dl 147 mg/dl 131 mg/dl White Blood Count 11.34 K/uL Red Blood Count 4.12 M/uL Hemoglobin 12.7 g/dL Hematocrit 36.4 % Mean Corpuscular Volume 88.3 fL Mean Corpuscular Hemoglobin 30.8 pg Mean Corpuscular Hemoglobin Concent 34.9 g/dl RDW Standard Deviation 41.5 fL RDW Coefficient of Variation 12.8 % Platelet Count 166 K/uL Mean Platelet Volume 10.5 fL Activated Partial Thromboplast Time 27.8 SECONDS Partial Thromboplastin Ratio 1.1 Sodium Level 142 mmol/L Potassium Level 3.6 mmol/L Chloride Level 111 mmol/L Carbon Dioxide Level 17 mmol/L Anion Gap 14.0 mmol/L Blood Urea Nitrogen 45 mg/dl Creatinine 3.60 mg/dl Est Creatinine Clear Calc Drug Dose 21.8 ml/min Estimated GFR () 18.6 Estimated GFR (Non- 16.0 BUN/Creatinine Ratio 12.4 Random Glucose 118 mg/dl Calcium Level 8.2 mg/dl Magnesium Level 1.9 mg/dl Test 08/22/16 06:33 08/22/16 11:39 Bedside Glucose 118 mg/dl 150 mg/dl
[2016-08-22] MEDS: SODIUM CHLORIDE 0.9% 1000ML 1,000 ML IV SCH ×2 (14:15→20:29)
[2016-08-22 15:26] VITALS: BP 153/86; PULSE 102; TEMP 37; O2SAT 95
--- NOTE | 2016-08-22 16:05 | Nephrology Consultation ---
Nephrology Consultation Date of Consultation: Aug 22, 2016. Attending Physician: Elmer Reason for Consultation: EDDIE History of Present Illness Patient is a 70 year old male with history of prostate cancer, galina 4 + 5 with turp in the past currently on lupron injections and followed by Dr. Hernandez Rios who presented to outside clinic with nausea for four days and found to have afib and brought into hospital. pt had a difficult insertion of walton cathete and had significant amount of clots. pt was initially on heparin drip which was stopped with the macroscopic hematuria. pt was recently diagnosed this year with pre-diabetes requiring metformin. pt avoids nsaids. quit smoking many years ago. has had hypertension for about ten years. Past Medical/Surgical History Medical Problems: (1) Acute renal failure Status: Acute (2) Hip sprain Status: Acute (3) New onset atrial fibrillation Status: Acute pre-diabetes on metformin prostate cancer on lupron HTN for about ten years IBS Spinal Stenosis TURP Family History Diabetes mellitus FH: bladder cancer BROTHER FH: heart disease FHx: gallbladder disease Kidney disease Kidney stones Social History Smoking Status: Former Smoker Alcohol Use: occasionally Drug Use: none Marital Status: in relationship Housing Status: lives with significant other Occupation Status: employed Allergies Coded Allergies: Cat Dander (Verified Allergy, Severe, CAN CAUSE ASTHMA ATTACK-itchy eyes, congestion, 08/20/16) Dust (Verified Allergy, Unknown, MILD ASTHMA SYMPTOMS, 08/20/16) Dairy (Verified Adverse Reaction, Unknown, DIARRHEA-EATS DAIRY BUT AVOIDS MILK, 08/20/16) Medications Current Inpatient Medications Medications (Trade) Dose Ordered Sig/Jadon Route Start Time Stop Time Status Last Admin Dose Admin Acetaminophen (Tylenol Tab) 650 mg Q4H PRN PO 08/20/16 20:30 09/19/16 20:29 Ondansetron HCl (Zofran Inj) 4 mg Q6H PRN IV 08/20/16 20:30 09/19/16 20:29 Nitroglycerin (Nitrostat Tab) 0.4 mg UD PRN SL 08/20/16 20:30 09/19/16 20:29 Morphine Sulfate (MoRPHine SULFATE INJ) 2 mg Q30M PRN IV 08/20/16 20:30 09/03/16 20:29 08/21/16 13:00 2 MG Insulin Aspart (novoLOG ASPART) SLIDING SCALE If C... ACHS SC 08/20/16 21:00 09/19/16 20:59 08/22/16 12:31 4 UNITS Glucose (Glucose 40% Gel) 15-30 GRAMS 15 GRAMS... UD PRN PO 08/20/16 20:30 09/19/16 20:29 Glucose (Glucose Chew Tab) 4-8 Tablets 4 Tabl... UD PRN PO 08/20/16 20:30 09/19/16 20:29 Dextrose (Dextrose 50% 50ML Syringe) 25-50ML OF 50% DW IV FOR... UD PRN IV 08/20/16 20:30 09/19/16 20:29 Glucagon (Glucagon Inj) 1 mg UD PRN SQ 08/20/16 20:30 09/19/16 20:29 Miscellaneous Information (Consult Glycemic Management Pharmacy) 1 ea UD PRN N/A 08/20/16 20:44 09/19/16 20:43 Amlodipine Besylate (Norvasc Tab) 10 mg DAILY PO 08/21/16 09:00 09/20/16 08:59 08/22/16 08:06 10 MG Atorvastatin Calcium (Lipitor Tab) 20 mg HS PO 08/20/16 21:00 09/19/16 20:59 08/21/16 21:12 20 MG Metoprolol Succinate (Toprol Xl Tab) 200 mg QAM PO 08/21/16 09:00 09/20/16 08:59 08/22/16 08:05 200 MG Sertraline HCl (Zoloft Tab) 100 mg QAM PO 08/21/16 09:00 09/20/16 08:59 08/22/16 08:06 100 MG Zolpidem Tartrate (Ambien Tab) 10 mg HS PO 08/20/16 21:00 09/19/16 20:59 08/21/16 21:12 10 MG Pantoprazole Sodium (Protonix Tab) 20 mg QAM PO 08/21/16 09:00 09/20/16 08:59 08/22/16 08:06 20 MG Heparin Sodium/ Dextrose 500 ml @ 29 mls/hr [id number] PRN IV 08/20/16 22:00 09/19/16 21:59 Future Hold 08/20/16 22:20 29 MLS/HR Miscellaneous (Iv Fluids Completed) 1 ea PRN PRN N/A 08/20/16 22:45 08/20/17 22:44 Clonidine HCl (Catapres Tab) 0.1 mg Q4H PRN PO 08/21/16 14:15 09/20/16 14:14 Sodium Chloride 1,000 ml @ 150 mls/hr Q6H40M IV 08/22/16 13:45 09/21/16 13:44 08/22/16 14:15 150 MLS/HR Home Meds and Scripts Medications Dose Route/Sig Max Daily Dose Days Date Category Lipitor (Atorvastatin Calcium) 20 Mg Tab 20 Mg PO HS 08/20/16 Reported Norvasc (Amlodipine Besylate) 10 Mg Tab 10 Mg PO DAILY 08/20/16 Reported Zoloft (Sertraline HCl) 100 Mg Tab 100 Mg PO QAM 08/20/16 Reported Zolpidem Tartrate 10 Mg Tab 10 Mg PO HS 30 08/20/16 Reported Xgeva (Denosumab) 120 Mg/1.7 Ml Inj 1 Dose INJ [id number] 07/03/16 Reported Lupron Depot (Leuprolide Acetate (6 Month)) 45 Mg Inj 1 Dose INJ [id number] 07/03/16 Reported Metformin HCl 500 Mg Tab 1 Tab PO BIDM 07/03/16 Reported Tylenol (Acetaminophen) 325 Mg Tab 650 Mg PO PRN 12/05/14 Reported Zestril (Lisinopril) 40 Mg Tab 40 Mg PO QAM 12/05/14 Reported Prilosec (Omeprazole) 20 Mg Capcr 10 Mg PO DAILY 09/25/14 Reported Toprol Xl (Metoprolol Succinate) 200 Mg Tab 200 Mg PO QAM 09/23/13 Reported Review of Systems Constitutional: No fever, No chills Eyes: No worsening of vision ENT: No trouble swallowing Respiratory: No shortness of breath Cardiac: No chest pain Abdomen: + nausea Male : + hematuria all other review of systems otherwise negative. Physical Exam Date Time Temp Pulse Resp B/P (MAP) Pulse Ox O2 Delivery O2 Flow Rate FiO2 08/22/16 15:26 37.0 102 23 153/86 (108) 95 Room Air 08/22/16 12:00 Room Air 08/22/16 11:52 37.0 97 16 146/96 (113) 92 Room Air 08/22/16 08:00 Room Air 08/22/16 07:59 36.8 103 16 151/107 (122) 94 Room Air 137/99 (112) 08/22/16 04:00 Room Air 08/22/16 03:15 37.4 94 21 139/95 (110) 93 Room Air 08/22/16 00:00 Room Air 08/21/16 23:18 37.1 91 16 135/95 (108) 94 Room Air 08/21/16 20:01 37.4 97 16 153/94 (113) 92 Room Air 08/21/16 20:00 Room Air 24-Hour Column 08/23/16 08:00 Intake Total 940 ml Output Total 725 ml Balance 215 ml General Appearance: no apparent distress Eyes: normal inspection ENT: normal ENT inspection Neck: supple Respiratory/Chest: lungs clear Cardiovascular: + irregularly irregular Abdomen: normal bowel sounds, non tender, soft Extremities: no pedal edema Neurologic/Psych: no motor/sensory deficits, alert, oriented x 3 Skin: normal color, no rash Diagnostics Last 24 Hours Test 08/21/16 16:40 08/21/16 20:04 08/21/16 21:11 08/22/16 06:02 Bedside Glucose 135 mg/dl 147 mg/dl 131 mg/dl White Blood Count 11.34 K/uL Red Blood Count 4.12 M/uL Hemoglobin 12.7 g/dL Hematocrit 36.4 % Mean Corpuscular Volume 88.3 fL Mean Corpuscular Hemoglobin 30.8 pg Mean Corpuscular Hemoglobin Concent 34.9 g/dl RDW Standard Deviation 41.5 fL RDW Coefficient of Variation 12.8 % Platelet Count 166 K/uL Mean Platelet Volume 10.5 fL Activated Partial Thromboplast Time 27.8 SECONDS Partial Thromboplastin Ratio 1.1 Sodium Level 142 mmol/L Potassium Level 3.6 mmol/L Chloride Level 111 mmol/L Carbon Dioxide Level 17 mmol/L Anion Gap 14.0 mmol/L Blood Urea Nitrogen 45 mg/dl Creatinine 3.60 mg/dl Est Creatinine Clear Calc Drug Dose 21.8 ml/min Estimated GFR () 18.6 Estimated GFR (Non- 16.0 BUN/Creatinine Ratio 12.4 Random Glucose 118 mg/dl Calcium Level 8.2 mg/dl Magnesium Level 1.9 mg/dl Test 08/22/16 06:33 08/22/16 11:39 Bedside Glucose 118 mg/dl 150 mg/dl Assessment & Plan eddie with creatinine of 3.3 and worsened to 3.6 in the setting of hydronephosis with walton catheter in place and urinating well with bladder irrigation every two hours and clots much imrpoved and less red. currently on iv fluids which started today and hoping creatinine starts to improve. no role for dialysis at this time. defer to urology for further interventions to help relieve the obstruction and improve the hydro as best as possible. does have underlying hypertension and diabetes as well and new onset afib as well. although likely had element of obstruction and dehydration contributing to the eddie. should improve with fluids but may worsen before it improves if it was significant enough to cause an atn episode.
[2016-08-22] MEDS ORDERED: LIDOCAINE HCL 2% JELLY 30 ML TUBE EXT PRN (18:23)
[2016-08-22 19:02] VITALS: BP 136/85; PULSE 101; TEMP 37.6; O2SAT 95
[2016-08-22] MEDS: ATORVASTATIN 20 MG TAB PO SCH (20:29)
[2016-08-22] MEDS: ZOLPIDEM TARTRATE 10 MG TAB PO SCH (20:29)
[2016-08-22] MEDS: CLONIDINE HCL 0.1 MG TAB PO PRN (23:28)
[2016-08-22 23:33] VITALS: BP 159/130; PULSE 116; TEMP 37.5; O2SAT 92
[2016-08-23 04:44] VITALS: BP 162/134; PULSE 97; TEMP 36.8; O2SAT 92
[2016-08-23] MEDS: CLONIDINE HCL 0.1 MG TAB PO PRN (06:34)
[2016-08-23 06:57] LABS: PARTIAL THROMBOPLASTIN RATIO 1.1
[2016-08-23 07:25] VITALS: BP 137/95; PULSE 78; TEMP 37; O2SAT 95
--- NOTE | 2016-08-23 07:28 | Progress Note ---
Subjective Date of Service: Aug 23, 2016. Subjective Pt evaluation today including: conversation w/ patient, physical exam, chart review, lab review, review of inpatient medication list Pain: Denies PO Intake: NPO per orders, tolerated diet yesterday Voiding: walton catheter in place (urine clear and concentrated) 70 yo male with a history of metastatic CAP admitted with renal failure, worsening Cr yesterday, no labs yet today. He notes he is feeling improved, nephrology note appreciated. Apparent diuresis noted yesterday, IVF started. Past notes reviewed, no new complaints. His hematuria seems to have improved further. Problem List Medical Problems: (1) Acute renal failure Status: Acute (2) Hip sprain Status: Acute (3) New onset atrial fibrillation Status: Acute Review of Systems Constitutional: No fever, No chills Eyes: No worsening of vision ENT: No hearing loss Respiratory: No wheezing, No shortness of breath Cardiac: No chest pain Abdomen: No pain, No nausea Male : + see HPI, + hematuria (much improved) Neurologic: No memory loss, No paralysis Psychiatric: No anxiety Skin: No new/changing skin lesions, No color change Objective Vital Signs Date Time Temp Pulse Resp B/P (MAP) Pulse Ox O2 Delivery O2 Flow Rate FiO2 08/23/16 04:44 36.8 97 18 162/134 (143) 92 Room Air 08/23/16 04:00 Room Air 08/22/16 23:59 Room Air 08/22/16 23:33 37.5 116 20 159/130 (140) 92 Room Air 08/22/16 20:20 Room Air 08/22/16 19:02 37.6 101 24 136/85 (102) 95 Room Air 08/22/16 16:00 Room Air 08/22/16 15:26 37.0 102 23 153/86 (108) 95 Room Air 08/22/16 12:00 Room Air 08/22/16 11:52 37.0 97 16 146/96 (113) 92 Room Air 08/22/16 08:00 Room Air 08/22/16 07:59 36.8 103 16 151/107 (122) 94 Room Air 137/99 (112) Physical Exam General Appearance: no apparent distress, + obese ENT: hearing grossly normal Neck: supple, no adenopathy Respiratory/Chest: no respiratory distress, no accessory muscle use Cardiovascular: no JVD Abdomen: non tender, soft Extremities: non-tender Neurologic/Psychiatric: alert Skin: normal color Laboratory Results Last 24 Hours Test 08/22/16 11:39 08/22/16 16:09 08/22/16 20:18 08/23/16 06:20 Bedside Glucose 150 mg/dl 143 mg/dl 121 mg/dl 122 mg/dl Test 08/23/16 06:25 Activated Partial Thromboplast Time 28.5 SECONDS Partial Thromboplastin Ratio 1.1 Assessment and Plan A/P 70 yo male with metastatic CAP, renal failure, improved hematuria. No OR today - advance diet, hematuria improving. Continue walton for now. Nephrology notes appreciated - diuresis noted, possibly with IVF. Renal US appears to show unchanged chronic hydro from prostate cancer - this has been present since summer 2015 but Cr was 1.1 as recently as May 2016. I am therefore less suspicious that his imaging findings are a significant contributor to his current acute renal failure. However, should he fail to improve with IVF and walton drainage would perform a noncontrast CT scan for better definition of anatomy. No intervention for the time being however. AM labs ordered for renal function. Will continue to follow. Thank you for allowing us to participate in this patient's acute care. Discharge planning: home
[2016-08-23] MEDS: METOPROLOL SUCC 50MG EXT REL TAB PO SCH (08:08)
[2016-08-23] MEDS: AMLODIPINE BESYLATE 5 MG TAB PO SCH (08:10)
[2016-08-23] MEDS: SERTRALINE HCL 100 MG TAB PO SCH (08:10)
[2016-08-23] MEDS: PANTOprazole SOD 40 MG TAB PO SCH (08:10)
--- NOTE | 2016-08-23 08:10 | Nephrology Progress Note ---
Nephrology Progress Note Date of Service: Aug 23, 2016. Subjective 70 yo male with metastatic prostate cancer on lupron injections as an outpt with chronic hydro that is unchanged compared to imaging in the past and presented with nausea for several days and new onset afib. unable to heparinize patient secondary to hematuria which is improving. on iv fluids to help improve kidney function. pt comfortable. Objective Date Time Temp Pulse Resp B/P (MAP) Pulse Ox O2 Delivery O2 Flow Rate FiO2 08/23/16 07:30 Room Air 08/23/16 07:25 37.0 78 19 137/95 (109) 95 Room Air 08/23/16 04:44 36.8 97 18 162/134 (143) 92 Room Air 08/23/16 04:00 Room Air 08/22/16 23:59 Room Air 08/22/16 23:33 37.5 116 20 159/130 (140) 92 Room Air 08/22/16 20:20 Room Air 08/22/16 19:02 37.6 101 24 136/85 (102) 95 Room Air 08/22/16 16:00 Room Air 08/22/16 15:26 37.0 102 23 153/86 (108) 95 Room Air 08/22/16 12:00 Room Air 08/22/16 11:52 37.0 97 16 146/96 (113) 92 Room Air Physical Exam: General-aaox3 Eyes-no scleral icterus ENT-mmm Neck-supple Lungs-cta Heart-irregularly irregular Abdomen-bs+ s/nt/nd Extremities-no c/c/e Neuro-nonfocal Derm-no rash or ulcers Current Inpatient Medications Medications (Trade) Dose Ordered Sig/Jadon Route Start Time Stop Time Status Last Admin Dose Admin Acetaminophen (Tylenol Tab) 650 mg Q4H PRN PO 08/20/16 20:30 09/19/16 20:29 Ondansetron HCl (Zofran Inj) 4 mg Q6H PRN IV 08/20/16 20:30 09/19/16 20:29 Nitroglycerin (Nitrostat Tab) 0.4 mg UD PRN SL 08/20/16 20:30 09/19/16 20:29 Morphine Sulfate (MoRPHine SULFATE INJ) 2 mg Q30M PRN IV 08/20/16 20:30 09/03/16 20:29 08/21/16 13:00 2 MG Insulin Aspart (novoLOG ASPART) SLIDING SCALE If C... ACHS SC 08/20/16 21:00 09/19/16 20:59 08/22/16 17:10 5 UNITS Glucose (Glucose 40% Gel) 15-30 GRAMS 15 GRAMS... UD PRN PO 08/20/16 20:30 09/19/16 20:29 Glucose (Glucose Chew Tab) 4-8 Tablets 4 Tabl... UD PRN PO 08/20/16 20:30 09/19/16 20:29 Dextrose (Dextrose 50% 50ML Syringe) 25-50ML OF 50% DW IV FOR... UD PRN IV 08/20/16 20:30 09/19/16 20:29 Glucagon (Glucagon Inj) 1 mg UD PRN SQ 08/20/16 20:30 09/19/16 20:29 Miscellaneous Information (Consult Glycemic Management Pharmacy) 1 ea UD PRN N/A 08/20/16 20:44 09/19/16 20:43 Amlodipine Besylate (Norvasc Tab) 10 mg DAILY PO 08/21/16 09:00 09/20/16 08:59 08/22/16 08:06 10 MG Atorvastatin Calcium (Lipitor Tab) 20 mg HS PO 08/20/16 21:00 09/19/16 20:59 08/22/16 20:29 20 MG Metoprolol Succinate (Toprol Xl Tab) 200 mg QAM PO 08/21/16 09:00 09/20/16 08:59 08/22/16 08:05 200 MG Sertraline HCl (Zoloft Tab) 100 mg QAM PO 08/21/16 09:00 09/20/16 08:59 08/22/16 08:06 100 MG Zolpidem Tartrate (Ambien Tab) 10 mg HS PO 08/20/16 21:00 09/19/16 20:59 08/22/16 20:29 10 MG Pantoprazole Sodium (Protonix Tab) 20 mg QAM PO 08/21/16 09:00 09/20/16 08:59 08/22/16 08:06 20 MG Heparin Sodium/ Dextrose 500 ml @ 29 mls/hr [id number] PRN IV 08/20/16 22:00 09/19/16 21:59 Future Hold 08/20/16 22:20 29 MLS/HR Miscellaneous (Iv Fluids Completed) 1 ea PRN PRN N/A 08/20/16 22:45 08/20/17 22:44 Clonidine HCl (Catapres Tab) 0.1 mg Q4H PRN PO 08/21/16 14:15 09/20/16 14:14 08/23/16 06:34 0.1 MG Sodium Chloride 1,000 ml @ 150 mls/hr Q6H40M IV 08/22/16 13:45 09/21/16 13:44 08/22/16 20:29 150 MLS/HR Lidocaine HCl (Xylocaine Jelly 2%) 1 ml DAILY PRN EXT 08/22/16 18:23 09/21/16 18:22 08/22/16 18:32 1 ML Last 24 Hours Test 08/22/16 11:39 08/22/16 16:09 08/22/16 20:18 08/23/16 06:20 Bedside Glucose 150 mg/dl 143 mg/dl 121 mg/dl 122 mg/dl Test 08/23/16 06:25 08/23/16 07:25 Activated Partial Thromboplast Time 28.5 SECONDS Partial Thromboplastin Ratio 1.1 Date/Time Source Procedure Growth Status 08/22/16 11:00 Urine,Catheterized Urine Culture Pending Received Assessment & Plan ejannie with creatinine of 3.3 on presentation and worsened to 3.6 in the setting of chronic hydronephosis with walton catheter in place and on iv fluids. pt does have afib new onset but rate controlled. perhaps may have had atn like episode from decreased perfusion to the kidneys from hemodynamic compromise with the afib if hydro is chronic and unchanged. pt was not feeling well for several days prior to coming in and may have had element of volume depletion as well which was significant enough with the afib to cause hemodynamic compromise. For now, continue conservative measures of iv fluids. tolerating them well. no indication for dialysis at this time. not uremic. hopefully, creatinine will eventually peak and start to trend down. labs pending for this morning.
[2016-08-23] MEDS: INSULIN ASPART 100 UNITS/ML 3 ML PEN SC SCH ×4 (08:15→21:00)
[2016-08-23] MEDS: SODIUM CHLORIDE 0.9% 1000ML 1,000 ML IV SCH ×3 (08:16→22:59)
[2016-08-23 08:22] LABS: HEMATOCRIT 34.1 % (42-52); MEAN CELL VOLUME 87.9 fL (80-100); MEAN CORPUSCULAR HEMOGLOBIN 31.4 pg (25-34); MEAN CORPUSCULAR HGB CONC 35.8 g/dl (32-36); MEAN PLATELET VOLUME 10.3 fL (7.4-10.4); PLATELET COUNT 158 K/uL (130-400); RED BLOOD COUNT 3.88 M/uL (4.7-6.1); WHITE BLOOD COUNT 10.15 K/uL (4.8-10.8)
[2016-08-23 08:27] LABS: BUN/CREATININE RATIO 13.2 (10-20); CALCIUM 7.8 mg/dl (8.5-10.1); CREATININE 3.9 mg/dl (0.60-1.40); MAGNESIUM 1.9 mg/dl (1.8-2.4); POTASSIUM 3.8 mmol/L (3.5-5.1)
--- NOTE | 2016-08-23 09:50 | Pharmacy Progress Note ---
Pharmacy Glycemic Sign Off Nt Date of Service Aug 23, 2016. Assessment & Plan ASSESSMENT: * Pharmacy was consulted by Dr Otto on 08/20 for glycemic control and to write orders per [facility] inpatient glycemic control protocol. * Major changes made by pharmacy to antidiabetic regimen include: * Metformin currently on hold; using Novolog w/ CF 30, CR 10 * Patient has been receiving/requiring ~10 units of insulin per day for adequate glycemic control * BSGs ranging 121-150 mg/dl * Regimen has required NO adjustments over the past 48hrs to achieve this level of control * Do not anticipate further changes in patient status that would quickly deteriorate glycemic control (i.e. patient to be NPO for upcoming procedure, steroids tapering, starting tube feedings, etc). * Please see recommendations for outpatient antidiabetic regimen below. PLAN FOR INPATIENT GLYCEMIC CONTROL: * No changes needed to current regimen. * A1c added to discharge instructions to be communicated to PCP. * Pharmacy is signing off of glycemic consult and will no longer be making adjustments to inpatient regimen. Please feel free to re-consult if needed. Thank you. DISCHARGE RECOMMENDATIONS: (from 08/21/16) * As Mr Walker's HbA1C is within goal considering his co-morbidities, he is reasonable for him to be discharged on his home metformin LONG KIDNEY FUNCTION RETURNS TO BASELINE. If his kidney function does not, it is reasonable to start a different oral agent (such as Januvia) or a GLP-1 agent (such as Byetta). * It would be prudent to avoid sulfonylurea due to kidney function and thiazolidinedione due to his cardiac history.
[2016-08-23 11:28] VITALS: BP 134/91; PULSE 88; TEMP 36.9; O2SAT 96
--- NOTE | 2016-08-23 11:53 | DIAGNOSTIC IMAGING REPORT ---
ABD/PELVIS WITHOUT FOR STONE CLINICAL HISTORY: 70 years-old Male presenting with Hydronephrosis, prostate cancer, renal failure. TECHNIQUE: Multidetector CT of the abdomen and pelvis was performed without the use of intravenous contrast. IV contrast: None. COMPARISON: 05/27/2016. CT DOSE: The estimated cumulative dose is 1738.85 mGy.cm. 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 Lung bases: Minimal reticular subpleural opacities at the right lung base are unchanged from prior, possibly scarring or postinfectious/postinflammatory. Regional bronchial wall thickening new from prior. Trace right pleural thickening and calcification in the posterior costophrenic sulcus, new from prior. Normal heart size. Coronary artery calcification. No pericardial effusion. 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 Biliary: No intrahepatic or extrahepatic biliary ductal dilatation. Normal gallbladder. Pancreas: Moderate parenchymal atrophy. Few small pancreatic calcifications, possibly chronic pancreatitis. Spleen: Normal. Adrenal glands: Normal. Kidneys and ureters: Chronic severe right hydroureteronephrosis with chronic right renal atrophy. The right ureter is dilated to the level of the bladder trigone. Moderate left hydroureteronephrosis is stable to increased from prior. The left ureter is dilated to the level of the bladder trigone. Multiple phleboliths noted. Gastrointestinal tract: Normal. No bowel obstruction. Peritoneal cavity: No free fluid or intraperitoneal gas. Bladder: Bladder decompressed with a Aaron catheter. Extensive perivesicular fat stranding, new from prior. Suggestion of soft tissue density in the region of the bladder trigone with diffuse bladder wall thickening. Pelvic organs: Given the diminutive size of the expected prostate, this may indicate post prostatectomy or post radiation change. Vasculature: Mild atherosclerosis of the normal caliber abdominal aorta. Lymph nodes: No enlarged lymph nodes in the abdomen or pelvis. Abdominal wall: Infiltration in the anterior abdominal wall bilaterally may indicate injection granulomas. Infiltration of the lower flanks, minimal anasarca. Musculoskeletal: Sclerotic foci in the pelvis unchanged from prior. Additionally, sclerotic focus in the lower sacrum consistent with known metastatic lesion is unchanged. Degenerative changes in the lumbar spine. IMPRESSION: 1. The diminutive appearance of the expected region of the prostate may indicate prior prostatectomy or post radiation change. 2. Although decompressed with a Aaron catheter, suggestion of abnormal soft tissue density in the region of the bladder trigone with diffuse bladder wall thickening. Given the clinical history of prostate cancer, this could represent recurrent disease. The presence of new associated inflammation is concerning for cystitis. Correlate with urinalysis. 3. Bilateral hydroureteronephrosis, slightly worsening on the left, with obstruction at the bladder trigone. 4. Chronic right renal atrophy. 5. Stable appearance of the sclerotic metastatic osseous lesion in the lower sacrum. No new osseous lesions. No lymphadenopathy. 6. New bronchial wall thickening in the right lower lobe suggest bronchitis/bronchiolitis. Electronically signed by: Keyshawn Lofton M.D. 08/23/2016 11:51 AM Dictated Date/Time: 08/23/2016 11:37 AM
--- NOTE | 2016-08-23 12:03 | Cardiology Follow-Up ---
Subjective General Date of Service: Aug 23, 2016. Chief Complaint: atrial fibrillation, abnormal EKG with T-wave inversions Pt evaluation today including: conversation w/ patient, physical exam History of Present Illness The patient is a 70 year old male seen in follow-up. Patient continues to improve from an NG standpoint is much more alert today compared to 2 days ago. A Aaron catheter is in place and is draining blood tinged urine but this is significantly improved compared to oh was initially observed. His creatinine is a little bit worse today. Telemetry reveals recurrent controlled atrial fibrillation in the 70-80 beat per minute range. Allergies Coded Allergies: Cat Dander (Verified Allergy, Severe, CAN CAUSE ASTHMA ATTACK-itchy eyes, congestion, 08/20/16) Dust (Verified Allergy, Unknown, MILD ASTHMA SYMPTOMS, 08/20/16) Dairy (Verified Adverse Reaction, Unknown, DIARRHEA-EATS DAIRY BUT AVOIDS MILK, 08/20/16) Social History Smoking Status: Former Smoker Hx Tobacco Use In Past Year?: No Hx Alcohol Use - Type And Amou: No Hx Substance Use - Type And Am: No Problem List Medical Problems: (1) Acute renal failure Status: Acute (2) Hip sprain Status: Acute (3) New onset atrial fibrillation Status: Acute Physical Exam Vital Signs Last Vital Signs Documentation Date Time Temp Pulse Resp B/P (MAP) Pulse Ox O2 Delivery O2 Flow Rate FiO2 08/23/16 11:30 Room Air 08/23/16 11:28 36.9 88 18 134/91 (105) 96 Physical Exam Constitutional: Level of Distress: NAD Head: normocephalic Neck: supple Lungs: Auscultation: no wheezing, no rales/crackles, no rhonchi Cardiovascular: Heart Auscultation: RRR, no murmurs, irregular rate rhythm Abdomen: Inspection & Palpation: soft, non-distended Extremities: no edema, pertinent finding (no focal deficits ) Neurologic: Gait & Station: pertinent finding (no focal deficits) Assessment and Plan Assessment and Plan Impression: 70-year-old male 1. Rate controlled, newly diagnosed, atrial fibrillation, chronicity unknown. 2. New diffuse T-wave inversions in the precordial leads V1 to V6, suggestive of ischemia 3. Acute kidney injury, perhaps due to urinary outflow tract obstruction. 4. Metastatic prostate carcinoma 5. Anticoagulation on hold due to gross hematuria with Aaron catheter insertion. Plan: Renal function worse by labs studies. Prior baseline creatinine was 1.1 mg/dL on 06/28/2016 --> 3.3 mg/dL 08/21/16 --> 3.6 mg/dl 08/22/16--> 3.9 mg/dL on 08/23/16. Not a candidate for anticoagulation for stroke prevention due to hematuria. Not a candidate for further ischemic work up of abnormal T waves on EKG due to hematuria. Continue metoprolol succinate 100 mg daily. Nephrology and urology input noted and appreciated. Laboratory Results Last 24 Hours Test 08/22/16 16:09 08/22/16 20:18 08/23/16 06:20 08/23/16 06:25 Bedside Glucose 143 mg/dl 121 mg/dl 122 mg/dl White Blood Count 10.15 K/uL Red Blood Count 3.88 M/uL Hemoglobin 12.2 g/dL Hematocrit 34.1 % Mean Corpuscular Volume 87.9 fL Mean Corpuscular Hemoglobin 31.4 pg Mean Corpuscular Hemoglobin Concent 35.8 g/dl RDW Standard Deviation 41.0 fL RDW Coefficient of Variation 12.7 % Platelet Count 158 K/uL Mean Platelet Volume 10.3 fL Activated Partial Thromboplast Time 28.5 SECONDS Partial Thromboplastin Ratio 1.1 Sodium Level 145 mmol/L Potassium Level 3.8 mmol/L Chloride Level 114 mmol/L Carbon Dioxide Level 20 mmol/L Anion Gap 11.0 mmol/L Blood Urea Nitrogen 51 mg/dl Creatinine 3.90 mg/dl Est Creatinine Clear Calc Drug Dose 20.5 ml/min Estimated GFR () 16.9 Estimated GFR (Non- 14.5 BUN/Creatinine Ratio 13.2 Random Glucose 121 mg/dl Calcium Level 7.8 mg/dl Magnesium Level 1.9 mg/dl
--- NOTE | 2016-08-23 13:36 | Progress Note ---
Internal Med Progress Note Date of Service: Aug 23, 2016. Provider Documentation: SUBJECTIVE: The patient was seen and examined Denies any symptoms again today Hematuria is improving Heart rate is stable OBJECTIVE: Vital Signs-as noted below Exam: General-No apparent distress Eyes-normal ENT-normal Neck-supple Lungs-Clear to ausucltate bilaterally Heart-Irregular,no murmur Abdomen-Benign,mildly tender renal angles Extremities-Trace edema bilaterally Neuro-AAOc3 Lab data as noted below. ASSESSMENT & PLAN: Atrial fibrillation-new onset. Diffuse T inversion -not a candidate for any intervention any intervention Occasional palpitation Denies any Chest pain Duration unknown No Heparin due to Hematuria Continue BB for rate control and for High BP Cardiology consult-appreciated Remains free from symptoms EDDIE- With Bilateral Hydronephrosis and Hydroureters Secondary to ongoing obstructive symptoms Renal u/s:1. Stable appearing severe right and moderate left hydroureteronephrosis. 2. Unchanged multifocal parenchymal thinning and scarring of the right kidney. 3. Apparent soft tissue mass involves the base of the urinary bladder. This could be correlated with cystoscopy. Renal function is getting worse Appreciate Nephrology input Continue IVF and monitor Renal function Gross hematuria with H/O Prostate Cancer-treated with Lupron as outpatient Urinary retention-Aaron in place, has history of this. Urology consulted. Holding heparin until further evaluation by Urology. Urine Culture -pending CT of the abdomen::1. The diminutive appearance of the expected region of the prostate may indicate prior prostatectomy or post radiation change. 2. Although decompressed with a Aaron catheter, suggestion of abnormal soft tissue density in the region of the bladder trigone with diffuse bladder wall thickening. Given the clinical history of prostate cancer, this could represent recurrent disease. The presence of new associated inflammation is concerning for cystitis. Correlate with urinalysis. 3. Bilateral hydroureteronephrosis, slightly worsening on the left, with obstruction at the bladder trigone. 4. Chronic right renal atrophy. 5. Stable appearance of the sclerotic metastatic osseous lesion in the lower sacrum. No new osseous lesions. No lymphadenopathy. 6. New bronchial wall thickening in the right lower lobe suggest bronchitis/bronchiolitis. May has recurrence of the Prostate Cancer Hypertension- Slightly elevated, likely situational. Lisinopril held in setting of EDDIE. Cont Norvasc 10, Toprol XL 200mg. DMII-hold metformin, A1C in am-6.5. Cont Lantus/ISS per algorithm and consulted glycemic pharmacist. Depression/Anxiety-appears stable. Cont sertraline 100. DVT proph-heparin drip held 2/2 significant hematuria. Full Code Dispo Awaited Vital Signs: Date Time Temp Pulse Resp B/P (MAP) Pulse Ox O2 Delivery O2 Flow Rate FiO2 08/23/16 11:30 Room Air 08/23/16 11:28 36.9 88 18 134/91 (105) 96 Room Air 08/23/16 07:30 Room Air 08/23/16 07:25 37.0 78 19 137/95 (109) 95 Room Air 08/23/16 04:44 36.8 97 18 162/134 (143) 92 Room Air 08/23/16 04:00 Room Air 08/22/16 23:59 Room Air 08/22/16 23:33 37.5 116 20 159/130 (140) 92 Room Air 08/22/16 20:20 Room Air 08/22/16 19:02 37.6 101 24 136/85 (102) 95 Room Air 08/22/16 16:00 Room Air 08/22/16 15:26 37.0 102 23 153/86 (108) 95 Room Air Lab Results: Results Past 24 Hours Test 08/22/16 16:09 08/22/16 20:18 08/23/16 06:20 08/23/16 06:25 Range/Units Bedside Glucose 143 121 122 70-99 mg/dl White Blood Count 10.15 4.8-10.8 K/uL Red Blood Count 3.88 4.7-6.1 M/uL Hemoglobin 12.2 14.0-18.0 g/dL Hematocrit 34.1 42-52 % Mean Corpuscular Volume 87.9 80-100 fL Mean Corpuscular Hemoglobin 31.4 25-34 pg Mean Corpuscular Hemoglobin Concent 35.8 32-36 g/dl RDW Standard Deviation 41.0 36.4-46.3 fL RDW Coefficient of Variation 12.7 11.5-14.5 % Platelet Count 158 130-400 K/uL Mean Platelet Volume 10.3 7.4-10.4 fL Activated Partial Thromboplast Time 28.5 21.0-31.0 SECONDS Partial Thromboplastin Ratio 1.1 Sodium Level 145 136-145 mmol/L Potassium Level 3.8 3.5-5.1 mmol/L Chloride Level 114 98-107 mmol/L Carbon Dioxide Level 20 21-32 mmol/L Anion Gap 11.0 3-11 mmol/L Blood Urea Nitrogen 51 7-18 mg/dl Creatinine 3.90 0.60-1.40 mg/dl Est Creatinine Clear Calc Drug Dose 20.5 ml/min Estimated GFR () 16.9 Estimated GFR (Non- 14.5 BUN/Creatinine Ratio 13.2 10-20 Random Glucose 121 70-99 mg/dl Calcium Level 7.8 8.5-10.1 mg/dl Magnesium Level 1.9 1.8-2.4 mg/dl Test 08/23/16 10:51 Range/Units Bedside Glucose 116 70-99 mg/dl
[2016-08-23 15:26] VITALS: BP 142/91; PULSE 95; TEMP 36.8; O2SAT 96
[2016-08-23 19:37] VITALS: BP 146/91; PULSE 97; TEMP 36.8; O2SAT 96
[2016-08-23] MEDS: ATORVASTATIN 20 MG TAB PO SCH (21:03)
[2016-08-23] MEDS: ZOLPIDEM TARTRATE 10 MG TAB PO SCH (21:03)
[2016-08-23 23:30] VITALS: BP 137/93; PULSE 91; TEMP 36.6; O2SAT 95
[2016-08-24] VITALS (7 sets, daily range): BP systolic 127–155; BP diastolic 73–100; PULSE 71–90; TEMP 36.8–37; O2SAT 94–96
[2016-08-24] MEDS: SODIUM CHLORIDE 0.9% 1000ML 1,000 ML IV SCH ×3 (05:36→19:44)
[2016-08-24] MEDS: INSULIN ASPART 100 UNITS/ML 3 ML PEN SC SCH ×4 (07:00→21:00)
[2016-08-24 07:43] LABS: HEMATOCRIT 33.9 % (42-52); MEAN CELL VOLUME 89.2 fL (80-100); MEAN CORPUSCULAR HEMOGLOBIN 31.3 pg (25-34); MEAN CORPUSCULAR HGB CONC 35.1 g/dl (32-36); PLATELET COUNT 162 K/uL (130-400); WHITE BLOOD COUNT 8.52 K/uL (4.8-10.8)
[2016-08-24 07:55] LABS: PARTIAL THROMBOPLASTIN RATIO 1.1
[2016-08-24] MEDS: AMLODIPINE BESYLATE 5 MG TAB PO SCH (08:12)
[2016-08-24] MEDS: SERTRALINE HCL 100 MG TAB PO SCH (08:13)
[2016-08-24] MEDS: PANTOprazole SOD 40 MG TAB PO SCH (08:13)
[2016-08-24] MEDS: METOPROLOL SUCC 50MG EXT REL TAB PO SCH (08:13)
[2016-08-24 08:17] LABS: BUN/CREATININE RATIO 15.3 (10-20); CALCIUM 7.4 mg/dl (8.5-10.1); CREATININE 3.6 mg/dl (0.60-1.40); POTASSIUM 3.7 mmol/L (3.5-5.1)
--- NOTE | 2016-08-24 09:09 | Progress Note ---
Subjective Date of Service: Aug 24, 2016. 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 He feels well, no changes since yesterday. Cr noted to be decreasing, 3.6 today, peaked at 3.9 yesterday. Diuresis of clear urine continues. Past notes reviewed, seen in PM rounds yesterday. No new complaints. Problem List Medical Problems: (1) Acute renal failure Status: Acute (2) Hip sprain Status: Acute (3) New onset atrial fibrillation Status: Acute Review of Systems Constitutional: No fever, No chills Eyes: No worsening of vision ENT: No hearing loss Respiratory: No wheezing Cardiac: No chest pain Abdomen: No vomiting Male : + see HPI, No hematuria (resolved) Neurologic: No memory loss, No paralysis Psychiatric: No depression symptoms Endo: No fatigue Skin: No new/changing skin lesions, No color change Objective Vital Signs Date Time Temp Pulse Resp B/P (MAP) Pulse Ox O2 Delivery O2 Flow Rate FiO2 08/24/16 08:00 Room Air 08/24/16 07:43 36.9 89 18 145/100 (115) 96 Room Air 08/24/16 04:00 Room Air 08/24/16 03:40 36.8 87 20 155/87 (109) 96 Room Air 08/24/16 00:00 95 Room Air 08/23/16 23:30 36.6 91 20 137/93 (108) 95 Room Air 08/23/16 20:00 Room Air 08/23/16 19:37 36.8 97 20 146/91 (109) 96 Room Air 08/23/16 16:20 Room Air 08/23/16 15:26 36.8 95 23 142/91 (108) 96 Room Air 08/23/16 11:30 Room Air 08/23/16 11:28 36.9 88 18 134/91 (105) 96 Room Air Physical Exam General Appearance: no apparent distress, + obese ENT: hearing grossly normal Neck: supple, no adenopathy Respiratory/Chest: no respiratory distress, no accessory muscle use Cardiovascular: no JVD Abdomen: non tender, soft Neurologic/Psychiatric: alert, oriented x 3 Skin: normal color Laboratory Results Last 24 Hours Test 08/23/16 10:51 08/23/16 16:10 08/23/16 20:46 08/24/16 07:11 Bedside Glucose 116 mg/dl 121 mg/dl 136 mg/dl 125 mg/dl Test 08/24/16 07:23 White Blood Count 8.52 K/uL Red Blood Count 3.80 M/uL Hemoglobin 11.9 g/dL Hematocrit 33.9 % Mean Corpuscular Volume 89.2 fL Mean Corpuscular Hemoglobin 31.3 pg Mean Corpuscular Hemoglobin Concent 35.1 g/dl RDW Standard Deviation 41.9 fL RDW Coefficient of Variation 12.8 % Platelet Count 162 K/uL Mean Platelet Volume 11.0 fL Activated Partial Thromboplast Time 27.6 SECONDS Partial Thromboplastin Ratio 1.1 Sodium Level 146 mmol/L Potassium Level 3.7 mmol/L Chloride Level 117 mmol/L Carbon Dioxide Level 19 mmol/L Anion Gap 10.0 mmol/L Blood Urea Nitrogen 55 mg/dl Creatinine 3.60 mg/dl Est Creatinine Clear Calc Drug Dose 22.1 ml/min Estimated GFR () 18.6 Estimated GFR (Non- 16.0 BUN/Creatinine Ratio 15.3 Random Glucose 118 mg/dl Calcium Level 7.4 mg/dl Assessment and Plan A/P 70 yo male with metastatic CAP, improving renal failure, resolved hematuria. We are pleased with the improvement in his Cr. Stents should not be needed - will provide a diet this AM. Continue walton until Cr closer to baseline, continue medical care per primary service. Will add a PSA to AM labs, last 10.6 in Apr 2016, currently on Lupron. Will continue to follow. Discharge planning: home
--- NOTE | 2016-08-24 14:48 | Progress Note ---
Internal Med Progress Note Date of Service: Aug 24, 2016. Provider Documentation: SUBJECTIVE: The patient was seen and examined Denies any symptoms again today Hematuria is improving Heart rate is stable Denies any other complaints OBJECTIVE: Vital Signs-as noted below Exam: General-No apparent distress Eyes-normal ENT-normal Neck-supple Lungs-Clear to ausucltate bilaterally Heart-Irregular,no murmur Abdomen-Benign,mildly tender renal angles No tenderness in renal angles Extremities-Trace edema bilaterally Neuro-AAOc3 Lab data as noted below. ASSESSMENT & PLAN: Atrial fibrillation-new onset. Diffuse T inversion -not a candidate for any intervention any intervention Occasional palpitation Denies any Chest pain Duration unknown No Heparin due to Hematuria Continue BB for rate control and for High BP Cardiology consult-appreciated Remains free from symptoms Rate is controlled EDDIE- With Bilateral Hydronephrosis and Hydroureters Secondary to ongoing obstructive symptoms Renal u/s:1. Stable appearing severe right and moderate left hydroureteronephrosis. 2. Unchanged multifocal parenchymal thinning and scarring of the right kidney. 3. Apparent soft tissue mass involves the base of the urinary bladder. This could be correlated with cystoscopy. Renal function is getting worse Appreciate Nephrology input Continue IVF and monitor Renal function Creatinine is improving Gross hematuria with H/O Prostate Cancer-treated with Lupron as outpatient Urinary retention-Aaron in place, has history of this. Urology consulted. Holding heparin until further evaluation by Urology. Urine Culture -pending CT of the abdomen::1. The diminutive appearance of the expected region of the prostate may indicate prior prostatectomy or post radiation change. 2. Although decompressed with a Aaron catheter, suggestion of abnormal soft tissue density in the region of the bladder trigone with diffuse bladder wall thickening. Given the clinical history of prostate cancer, this could represent recurrent disease. The presence of new associated inflammation is concerning for cystitis. Correlate with urinalysis. 3. Bilateral hydroureteronephrosis, slightly worsening on the left, with obstruction at the bladder trigone. 4. Chronic right renal atrophy. 5. Stable appearance of the sclerotic metastatic osseous lesion in the lower sacrum. No new osseous lesions. No lymphadenopathy. 6. New bronchial wall thickening in the right lower lobe suggest bronchitis/bronchiolitis. May has recurrence of the Prostate Cancer Hematuria is much better and almost clearing up Hypertension- Slightly elevated, likely situational. Lisinopril held in setting of EDDIE. Cont Norvasc 10, Toprol XL 200mg. Controlled DMII-hold metformin, A1C in am-6.5. Cont Lantus/ISS per algorithm and consulted glycemic pharmacist. Depression/Anxiety-appears stable. Cont sertraline 100. DVT proph-heparin drip held 2/2 significant hematuria. Full Code Dispo Awaited Vital Signs: Date Time Temp Pulse Resp B/P (MAP) Pulse Ox O2 Delivery O2 Flow Rate FiO2 08/24/16 12:05 37.0 71 18 127/82 (97) 96 Room Air 08/24/16 11:43 Room Air 08/24/16 08:00 Room Air 08/24/16 07:43 36.9 89 18 145/100 (115) 96 Room Air 08/24/16 04:00 Room Air 08/24/16 03:40 36.8 87 20 155/87 (109) 96 Room Air 08/24/16 00:00 95 Room Air 08/23/16 23:30 36.6 91 20 137/93 (108) 95 Room Air 08/23/16 20:00 Room Air 08/23/16 19:37 36.8 97 20 146/91 (109) 96 Room Air 08/23/16 16:20 Room Air 08/23/16 15:26 36.8 95 23 142/91 (108) 96 Room Air Lab Results: Results Past 24 Hours Test 08/23/16 16:10 08/23/16 20:46 08/24/16 07:11 08/24/16 07:23 Range/Units Bedside Glucose 121 136 125 70-99 mg/dl White Blood Count 8.52 4.8-10.8 K/uL Red Blood Count 3.80 4.7-6.1 M/uL Hemoglobin 11.9 14.0-18.0 g/dL Hematocrit 33.9 42-52 % Mean Corpuscular Volume 89.2 80-100 fL Mean Corpuscular Hemoglobin 31.3 25-34 pg Mean Corpuscular Hemoglobin Concent 35.1 32-36 g/dl RDW Standard Deviation 41.9 36.4-46.3 fL RDW Coefficient of Variation 12.8 11.5-14.5 % Platelet Count 162 130-400 K/uL Mean Platelet Volume 11.0 7.4-10.4 fL Activated Partial Thromboplast Time 27.6 21.0-31.0 SECONDS Partial Thromboplastin Ratio 1.1 Sodium Level 146 136-145 mmol/L Potassium Level 3.7 3.5-5.1 mmol/L Chloride Level 117 98-107 mmol/L Carbon Dioxide Level 19 21-32 mmol/L Anion Gap 10.0 3-11 mmol/L Blood Urea Nitrogen 55 7-18 mg/dl Creatinine 3.60 0.60-1.40 mg/dl Est Creatinine Clear Calc Drug Dose 22.1 ml/min Estimated GFR () 18.6 Estimated GFR (Non- 16.0 BUN/Creatinine Ratio 15.3 10-20 Random Glucose 118 70-99 mg/dl Calcium Level 7.4 8.5-10.1 mg/dl Test 08/24/16 11:37 Range/Units Bedside Glucose 149 70-99 mg/dl
[2016-08-24] MEDS: ATORVASTATIN 20 MG TAB PO SCH (21:15)
[2016-08-24] MEDS: ZOLPIDEM TARTRATE 10 MG TAB PO SCH (21:15)
[2016-08-25] VITALS (7 sets, daily range): BP systolic 140–157; BP diastolic 92–109; PULSE 90–106; TEMP 36.6–36.9; O2SAT 96–98
[2016-08-25] MEDS: SODIUM CHLORIDE 0.9% 1000ML 1,000 ML IV SCH ×2 (01:48→10:04)
[2016-08-25] MEDS: AMLODIPINE BESYLATE 5 MG TAB PO SCH ×3 (06:15→20:46)
[2016-08-25] MEDS: METOPROLOL SUCC 50MG EXT REL TAB PO SCH (06:15)
[2016-08-25] MEDS: SERTRALINE HCL 100 MG TAB PO SCH (07:46)
[2016-08-25] MEDS: PANTOprazole SOD 40 MG TAB PO SCH (07:46)
[2016-08-25] MEDS: INSULIN ASPART 100 UNITS/ML 3 ML PEN SC SCH ×4 (07:51→20:44)
[2016-08-25 08:13] LABS: PARTIAL THROMBOPLASTIN RATIO 1.1
[2016-08-25 08:30] LABS: BUN/CREATININE RATIO 15.3 (10-20); CALCIUM 7.2 mg/dl (8.5-10.1); CREATININE 3.3 mg/dl (0.60-1.40); POTASSIUM 3.3 mmol/L (3.5-5.1)
[2016-08-25 08:34] LABS: PROSTATE SPECIFIC ANTIGEN 20.6 ng/ml (0.000-4.000)
[2016-08-25] MEDS ORDERED: POTASSIUM CHLORIDE 20 MEQ TABCR PO STA (09:17)
--- NOTE | 2016-08-25 11:27 | Progress Note ---
Subjective Date of Service: Aug 25, 2016. Subjective Pt evaluation today including: conversation w/ patient, conversation w/ family , physical exam, chart review, lab review, review of inpatient medication list Pain: Denies PO Intake: Lou PO Voiding: walton catheter in place (urine clear) 70 yo male admitted with renal failure, hematuria, afib. Family in room today. He is in good spirits, feeling well, urine remains clear, Cr slowly dropping, 3.3 today down from 3.6, max value of 3.9. Continues with brisk UOP, some HTN noted. Past notes reviewed. Problem List Medical Problems: (1) Acute renal failure Status: Acute (2) Hip sprain Status: Acute (3) New onset atrial fibrillation Status: Acute Review of Systems Constitutional: No fever, No chills Eyes: No worsening of vision ENT: No hearing loss Respiratory: No wheezing, No shortness of breath Cardiac: No chest pain Abdomen: No nausea, No vomiting Male : + see HPI, No hematuria Neurologic: No memory loss, No paralysis Psychiatric: No depression symptoms Heme: No swollen lymph nodes Skin: No new/changing skin lesions Objective Vital Signs Date Time Temp Pulse Resp B/P (MAP) Pulse Ox O2 Delivery O2 Flow Rate FiO2 08/25/16 08:00 Room Air 08/25/16 07:59 36.7 102 19 157/92 (113) 96 Room Air 08/25/16 04:58 90 145/108 (120) 08/25/16 04:35 36.9 106 22 151/109 (123) 97 Room Air 08/25/16 04:00 Room Air 08/25/16 00:01 Room Air 08/24/16 23:51 36.9 87 18 146/98 (114) 94 Room Air 08/24/16 19:45 Room Air 08/24/16 19:18 37.0 20 132/84 (100) 96 Room Air 08/24/16 16:02 Room Air 08/24/16 15:21 36.8 90 19 136/91 (106) 96 Room Air 08/24/16 12:05 37.0 71 18 127/82 (97) 96 Room Air 08/24/16 11:43 Room Air Physical Exam General Appearance: no apparent distress, + obese ENT: normal ENT inspection Neck: supple, no adenopathy Respiratory/Chest: no respiratory distress, no accessory muscle use Cardiovascular: no JVD Abdomen: non tender, soft Neurologic/Psychiatric: alert Skin: normal color Laboratory Results Last 24 Hours Test 08/24/16 11:37 08/24/16 16:19 08/24/16 20:22 08/25/16 06:47 Bedside Glucose 149 mg/dl 97 mg/dl 108 mg/dl 104 mg/dl Test 08/25/16 07:08 Activated Partial Thromboplast Time 28.5 SECONDS Partial Thromboplastin Ratio 1.1 Sodium Level 147 mmol/L Potassium Level 3.3 mmol/L Chloride Level 119 mmol/L Carbon Dioxide Level 17 mmol/L Anion Gap 11.0 mmol/L Blood Urea Nitrogen 51 mg/dl Creatinine 3.30 mg/dl Est Creatinine Clear Calc Drug Dose 24.3 ml/min Estimated GFR () 20.6 Estimated GFR (Non- 17.8 BUN/Creatinine Ratio 15.3 Random Glucose 116 mg/dl Calcium Level 7.2 mg/dl Prostate Specific Antigen 20.600 ng/ml Assessment and Plan A/P 70 yo male with metastatic CAP, improving renal failure, resolved hematuria. Slow improvement of Cr. Will keep walton in place until it is closer to normal value. Continue to monitor. PSA at 20 - rise from last value likely due to walton and manipulation. Will monitor as outpatient. No acute intervention at this time. Will continue to follow patient. Discharge planning: home
--- NOTE | 2016-08-25 11:44 | Nephrology Progress Note ---
Nephrology Progress Note Date of Service: Aug 25, 2016. Subjective No new complaints. Objective Date Time Temp Pulse Resp B/P (MAP) Pulse Ox O2 Delivery O2 Flow Rate FiO2 08/25/16 11:27 Room Air 08/25/16 08:00 Room Air 08/25/16 07:59 36.7 102 19 157/92 (113) 96 Room Air 08/25/16 04:58 90 145/108 (120) 08/25/16 04:35 36.9 106 22 151/109 (123) 97 Room Air 08/25/16 04:00 Room Air 08/25/16 00:01 Room Air 08/24/16 23:51 36.9 87 18 146/98 (114) 94 Room Air 08/24/16 19:45 Room Air 08/24/16 19:18 37.0 20 132/84 (100) 96 Room Air 08/24/16 16:02 Room Air 08/24/16 15:21 36.8 90 19 136/91 (106) 96 Room Air 08/24/16 12:05 37.0 71 18 127/82 (97) 96 Room Air 08/24/16 11:43 Room Air Physical Exam: General-[no distress] Eyes-[] ENT-[] Neck-[] Lungs-[Clear] Heart-[RRR] Abdomen-[Soft] Extremities-2+ edema] Neuro-[AAO] Current Inpatient Medications Medications (Trade) Dose Ordered Sig/Jadon Route Start Time Stop Time Status Last Admin Dose Admin Acetaminophen (Tylenol Tab) 650 mg Q4H PRN PO 08/20/16 20:30 09/19/16 20:29 Ondansetron HCl (Zofran Inj) 4 mg Q6H PRN IV 08/20/16 20:30 09/19/16 20:29 08/25/16 07:55 4 MG Nitroglycerin (Nitrostat Tab) 0.4 mg UD PRN SL 08/20/16 20:30 09/19/16 20:29 Morphine Sulfate (MoRPHine SULFATE INJ) 2 mg Q30M PRN IV 08/20/16 20:30 09/03/16 20:29 08/21/16 13:00 2 MG Insulin Aspart (novoLOG ASPART) SLIDING SCALE If C... ACHS SC 08/20/16 21:00 09/19/16 20:59 08/25/16 07:51 5 UNITS Glucose (Glucose 40% Gel) 15-30 GRAMS 15 GRAMS... UD PRN PO 08/20/16 20:30 09/19/16 20:29 Glucose (Glucose Chew Tab) 4-8 Tablets 4 Tabl... UD PRN PO 08/20/16 20:30 09/19/16 20:29 Dextrose (Dextrose 50% 50ML Syringe) 25-50ML OF 50% DW IV FOR... UD PRN IV 08/20/16 20:30 09/19/16 20:29 Glucagon (Glucagon Inj) 1 mg UD PRN SQ 08/20/16 20:30 09/19/16 20:29 Atorvastatin Calcium (Lipitor Tab) 20 mg HS PO 08/20/16 21:00 09/19/16 20:59 08/24/16 21:15 20 MG Metoprolol Succinate (Toprol Xl Tab) 200 mg QAM PO 08/21/16 09:00 09/20/16 08:59 08/25/16 06:15 200 MG Sertraline HCl (Zoloft Tab) 100 mg QAM PO 08/21/16 09:00 09/20/16 08:59 08/25/16 07:46 100 MG Zolpidem Tartrate (Ambien Tab) 10 mg HS PO 08/20/16 21:00 09/19/16 20:59 08/24/16 21:15 10 MG Pantoprazole Sodium (Protonix Tab) 20 mg QAM PO 08/21/16 09:00 09/20/16 08:59 08/25/16 07:46 20 MG Heparin Sodium/ Dextrose 500 ml @ 29 mls/hr [id number] PRN IV 08/20/16 22:00 09/19/16 21:59 Future Hold 08/20/16 22:20 29 MLS/HR Miscellaneous (Iv Fluids Completed) 1 ea PRN PRN N/A 08/20/16 22:45 08/20/17 22:44 Clonidine HCl (Catapres Tab) 0.1 mg Q4H PRN PO 08/21/16 14:15 09/20/16 14:14 08/23/16 06:34 0.1 MG Sodium Chloride 1,000 ml @ 150 mls/hr Q6H40M IV 08/22/16 13:45 09/21/16 13:44 08/25/16 10:04 150 MLS/HR Lidocaine HCl (Xylocaine Jelly 2%) 1 ml DAILY PRN EXT 08/22/16 18:23 09/21/16 18:22 08/22/16 18:32 1 ML Amlodipine Besylate (Norvasc Tab) 5 mg BID PO 08/25/16 06:00 09/24/16 05:59 08/25/16 07:45 5 MG Last 24 Hours Test 08/24/16 16:19 08/24/16 20:22 08/25/16 06:47 08/25/16 07:08 Bedside Glucose 97 mg/dl 108 mg/dl 104 mg/dl Activated Partial Thromboplast Time 28.5 SECONDS Partial Thromboplastin Ratio 1.1 Sodium Level 147 mmol/L Potassium Level 3.3 mmol/L Chloride Level 119 mmol/L Carbon Dioxide Level 17 mmol/L Anion Gap 11.0 mmol/L Blood Urea Nitrogen 51 mg/dl Creatinine 3.30 mg/dl Est Creatinine Clear Calc Drug Dose 24.3 ml/min Estimated GFR () 20.6 Estimated GFR (Non- 17.8 BUN/Creatinine Ratio 15.3 Random Glucose 116 mg/dl Calcium Level 7.2 mg/dl Prostate Specific Antigen 20.600 ng/ml Assessment & Plan jeannie: with creatinine of 3.3 on presentation and worsened to 3.9 in the setting of chronic hydronephosis with walton catheter in place and on iv fluids. ?? atn from decreased perfusion to the kidneys from hemodynamic compromise with the afib if hydro is chronic and unchanged. pt was not feeling well for several days prior to coming in and may have had element of volume depletion as well which was significant enough with the afib to cause hemodynamic compromise. no indication for dialysis at this time. not uremic. Creat is fairly stable now. has lot of edema. No longer volume depleted. if any has overload so d/c Iv fluids. he is eating and drinking fine.
--- NOTE | 2016-08-25 12:48 | Progress Note ---
Internal Med Progress Note Date of Service: Aug 25, 2016. Provider Documentation: SUBJECTIVE: The patient was seen and examined Hematuria is improving Heart rate is stable Denies any other complaints Remains stable OBJECTIVE: Vital Signs-as noted below Exam: General-No apparent distress Eyes-normal ENT-normal Neck-supple Lungs-Clear to ausucltate bilaterally Heart-Irregular,no murmur Abdomen-Benign,mildly tender renal angles No tenderness in renal angles Extremities-Trace edema bilaterally Neuro-AAOc3 Lab data as noted below. ASSESSMENT & PLAN: Atrial fibrillation-new onset. Diffuse T inversion -not a candidate for any intervention any intervention Occasional palpitation Denies any Chest pain Duration unknown No Heparin due to Hematuria Continue BB for rate control and for High BP Cardiology consult-appreciated Remains free from any cardiac symptoms Rate is controlled EDDIE- With Bilateral Hydronephrosis and Hydroureters Secondary to ongoing obstructive symptoms Renal u/s:1. Stable appearing severe right and moderate left hydroureteronephrosis. 2. Unchanged multifocal parenchymal thinning and scarring of the right kidney. 3. Apparent soft tissue mass involves the base of the urinary bladder. This could be correlated with cystoscopy. Renal function is getting worse Appreciate Nephrology input Continue IVF and monitor Renal function Creatinine is improving Gross hematuria with H/O Prostate Cancer-treated with Lupron as outpatient Urinary retention-Aaron in place, has history of this. Urology consulted. Holding heparin until further evaluation by Urology. Urine Culture -pending CT of the abdomen::1. The diminutive appearance of the expected region of the prostate may indicate prior prostatectomy or post radiation change. 2. Although decompressed with a Aaron catheter, suggestion of abnormal soft tissue density in the region of the bladder trigone with diffuse bladder wall thickening. Given the clinical history of prostate cancer, this could represent recurrent disease. The presence of new associated inflammation is concerning for cystitis. Correlate with urinalysis. 3. Bilateral hydroureteronephrosis, slightly worsening on the left, with obstruction at the bladder trigone. 4. Chronic right renal atrophy. 5. Stable appearance of the sclerotic metastatic osseous lesion in the lower sacrum. No new osseous lesions. No lymphadenopathy. 6. New bronchial wall thickening in the right lower lobe suggest bronchitis/bronchiolitis. May has recurrence of the Prostate Cancer Hematuria cleared Will keep Catheter in place on discharge as per Urologist Hypertension- Slightly elevated, likely situational. Lisinopril held in setting of EDDIE. Cont Norvasc 10, Toprol XL 200mg. Controlled now DMII-hold metformin, A1C in am-6.5. Cont Lantus/ISS per algorithm and consulted glycemic pharmacist. Depression/Anxiety-appears stable. Cont sertraline 100. DVT proph-heparin drip held 2/2 significant hematuria. Full Code Dispo Likely discharge tomorrow Vital Signs: Date Time Temp Pulse Resp B/P (MAP) Pulse Ox O2 Delivery O2 Flow Rate FiO2 08/25/16 11:48 36.7 91 18 147/93 (111) 97 Room Air 08/25/16 11:27 Room Air 08/25/16 08:00 Room Air 08/25/16 07:59 36.7 102 19 157/92 (113) 96 Room Air 08/25/16 04:58 90 145/108 (120) 08/25/16 04:35 36.9 106 22 151/109 (123) 97 Room Air 08/25/16 04:00 Room Air 08/25/16 00:01 Room Air 08/24/16 23:51 36.9 87 18 146/98 (114) 94 Room Air 08/24/16 19:45 Room Air 08/24/16 19:18 37.0 20 132/84 (100) 96 Room Air 08/24/16 16:02 Room Air 08/24/16 15:21 36.8 90 19 136/91 (106) 96 Room Air Lab Results: Results Past 24 Hours Test 08/24/16 16:19 08/24/16 20:22 08/25/16 06:47 08/25/16 07:08 Range/Units Bedside Glucose 97 108 104 70-99 mg/dl Activated Partial Thromboplast Time 28.5 21.0-31.0 SECONDS Partial Thromboplastin Ratio 1.1 Sodium Level 147 136-145 mmol/L Potassium Level 3.3 3.5-5.1 mmol/L Chloride Level 119 98-107 mmol/L Carbon Dioxide Level 17 21-32 mmol/L Anion Gap 11.0 3-11 mmol/L Blood Urea Nitrogen 51 7-18 mg/dl Creatinine 3.30 0.60-1.40 mg/dl Est Creatinine Clear Calc Drug Dose 24.3 ml/min Estimated GFR () 20.6 Estimated GFR (Non- 17.8 BUN/Creatinine Ratio 15.3 10-20 Random Glucose 116 70-99 mg/dl Calcium Level 7.2 8.5-10.1 mg/dl Prostate Specific Antigen 20.600 0.000-4.000 ng/ml
[2016-08-25] MEDS: ATORVASTATIN 20 MG TAB PO SCH (20:45)
[2016-08-25] MEDS: ZOLPIDEM TARTRATE 10 MG TAB PO SCH (21:26)
[2016-08-26] VITALS (10 sets, daily range): BP systolic 131–145; BP diastolic 91–117; PULSE 88–114; TEMP 36.7–37.1; O2SAT 97–99
[2016-08-26 06:18] LABS: HEMATOCRIT 35.8 % (42-52); MEAN CELL VOLUME 89.1 fL (80-100); MEAN CORPUSCULAR HEMOGLOBIN 30.3 pg (25-34); MEAN CORPUSCULAR HGB CONC 34.1 g/dl (32-36); MEAN PLATELET VOLUME 10.4 fL (7.4-10.4); PLATELET COUNT 214 K/uL (130-400); RED BLOOD COUNT 4.02 M/uL (4.7-6.1); WHITE BLOOD COUNT 8.51 K/uL (4.8-10.8)
[2016-08-26 06:47] LABS: BUN/CREATININE RATIO 13.5 (10-20); CALCIUM 7.3 mg/dl (8.5-10.1); POTASSIUM 3.3 mmol/L (3.5-5.1)
--- NOTE | 2016-08-26 07:53 | Progress Note ---
Subjective Date of Service: Aug 26, 2016. Subjective Pt evaluation today including: conversation w/ patient, chart review, lab review Voiding: walton catheter in place (patent, draining clear, yellow urine) 70 yo male with UR and ARF. Hematuria resolved. Urine clear, yellow this morning. Cr 3.0 this morning. Improved from 3.3 yesterday. Problem List Medical Problems: (1) Acute renal failure Status: Acute (2) Hip sprain Status: Acute (3) New onset atrial fibrillation Status: Acute Review of Systems Constitutional: No fever, No chills Respiratory: No shortness of breath Cardiac: No chest pain Abdomen: No pain, No nausea, No vomiting Male : No hematuria Heme: No abnormal bleeding/bruising Objective Vital Signs Date Time Temp Pulse Resp B/P (MAP) Pulse Ox O2 Delivery O2 Flow Rate FiO2 08/26/16 04:31 37.1 114 18 134/91 (105) 97 Room Air 08/26/16 04:00 Room Air 08/26/16 00:00 Room Air 08/25/16 23:48 36.9 101 18 140/102 (115) 97 Room Air 08/25/16 20:00 Room Air 08/25/16 20:00 Room Air 08/25/16 19:32 36.6 106 20 145/92 (109) 98 Room Air 08/25/16 15:27 36.7 95 20 140/105 (117) 97 Room Air 08/25/16 15:18 Room Air 08/25/16 11:48 36.7 91 18 147/93 (111) 97 Room Air 08/25/16 11:27 Room Air 08/25/16 08:00 Room Air 08/25/16 07:59 36.7 102 19 157/92 (113) 96 Room Air Physical Exam General Appearance: no apparent distress Eyes: normal inspection ENT: hearing grossly normal Neck: no JVD Respiratory/Chest: no respiratory distress, no accessory muscle use Cardiovascular: no JVD Extremities: normal inspection Neurologic/Psychiatric: alert, normal mood/affect, oriented x 3 Skin: normal color Laboratory Results Last 24 Hours Test 08/25/16 11:26 08/25/16 16:14 08/25/16 20:30 08/26/16 05:38 Bedside Glucose 133 mg/dl 73 mg/dl 129 mg/dl White Blood Count 8.51 K/uL Red Blood Count 4.02 M/uL Hemoglobin 12.2 g/dL Hematocrit 35.8 % Mean Corpuscular Volume 89.1 fL Mean Corpuscular Hemoglobin 30.3 pg Mean Corpuscular Hemoglobin Concent 34.1 g/dl RDW Standard Deviation 42.9 fL RDW Coefficient of Variation 13.1 % Platelet Count 214 K/uL Mean Platelet Volume 10.4 fL Activated Partial Thromboplast Time 27.1 SECONDS Partial Thromboplastin Ratio 1.0 Sodium Level 148 mmol/L Potassium Level 3.3 mmol/L Chloride Level 118 mmol/L Carbon Dioxide Level 19 mmol/L Anion Gap 11.0 mmol/L Blood Urea Nitrogen 41 mg/dl Creatinine 3.00 mg/dl Est Creatinine Clear Calc Drug Dose 26.3 ml/min Estimated GFR () 23.1 Estimated GFR (Non- 20.0 BUN/Creatinine Ratio 13.5 Random Glucose 113 mg/dl Calcium Level 7.3 mg/dl Test 08/26/16 06:54 Bedside Glucose 124 mg/dl Assessment and Plan A/P: Metastatic prostate cancer, gross hematuria, urinary retention, ARF AFVSS. Hematuria resolved. Will plan to leave walton catheter in place until Cr improves to at least 2.0. Can attempt TOV as inpatient or outpatient once improved. Will continue to follow along with primary service. Discharge planning: home
[2016-08-26] MEDS: AMLODIPINE BESYLATE 5 MG TAB PO SCH ×2 (07:59→20:00)
[2016-08-26] MEDS: PANTOprazole SOD 40 MG TAB PO SCH (07:59)
[2016-08-26] MEDS: SERTRALINE HCL 100 MG TAB PO SCH (08:00)
[2016-08-26] MEDS: METOPROLOL SUCC 50MG EXT REL TAB PO SCH (08:00)
[2016-08-26] MEDS: INSULIN ASPART 100 UNITS/ML 3 ML PEN SC SCH ×4 (08:10→21:00)
[2016-08-26] MEDS ORDERED: POTASSIUM CHLORIDE 10 MEQ TABCR PO ONE ×2 (09:00→16:45)
--- NOTE | 2016-08-26 12:28 | Progress Note ---
Internal Med Progress Note Date of Service: Aug 26, 2016. Provider Documentation: SUBJECTIVE: The patient was seen and examined Hematuria is improving Heart rate is stable Remains stable and denies any symptoms Complains of some lower left chest wall pain OBJECTIVE: Vital Signs-as noted below Exam: General-No apparent distress Eyes-normal ENT-normal Neck-supple Lungs-Clear to ausucltate bilaterally Heart-Irregular,no murmur Abdomen-Benign,mildly tender renal angles No tenderness in renal angles Extremities-Trace edema bilaterally Neuro-AAOc3 Lab data as noted below. ASSESSMENT & PLAN: Atrial fibrillation-new onset. Diffuse T inversion -not a candidate for any intervention any intervention Occasional palpitation Denies any Chest pain Duration unknown No Heparin due to Hematuria Continue BB for rate control and for High BP Cardiology consult-appreciated Remains free from any cardiac symptoms Rate is controlled and denies any symptoms EDDIE- With Bilateral Hydronephrosis and Hydroureters Secondary to ongoing obstructive symptoms Renal u/s:1. Stable appearing severe right and moderate left hydroureteronephrosis. 2. Unchanged multifocal parenchymal thinning and scarring of the right kidney. 3. Apparent soft tissue mass involves the base of the urinary bladder. This could be correlated with cystoscopy. Renal function is getting worse Appreciate Nephrology input Continue IVF and monitor Renal function Creatinine is improving-3.0 on 08/26/16 Gross hematuria with H/O Prostate Cancer-treated with Lupron as outpatient Urinary retention-Aaron in place, has history of this. Urology consulted. Holding heparin until further evaluation by Urology. Urine Culture -pending CT of the abdomen::1. The diminutive appearance of the expected region of the prostate may indicate prior prostatectomy or post radiation change. 2. Although decompressed with a Aaron catheter, suggestion of abnormal soft tissue density in the region of the bladder trigone with diffuse bladder wall thickening. Given the clinical history of prostate cancer, this could represent recurrent disease. The presence of new associated inflammation is concerning for cystitis. Correlate with urinalysis. 3. Bilateral hydroureteronephrosis, slightly worsening on the left, with obstruction at the bladder trigone. 4. Chronic right renal atrophy. 5. Stable appearance of the sclerotic metastatic osseous lesion in the lower sacrum. No new osseous lesions. No lymphadenopathy. 6. New bronchial wall thickening in the right lower lobe suggest bronchitis/bronchiolitis. May has recurrence of the Prostate Cancer Hematuria cleared Will keep Catheter in place on discharge as per Urologist PSA is elevated to >20 Will need Urologic Procedure Hypertension- Slightly elevated, likely situational. Lisinopril held in setting of EDDIE. Cont Norvasc 10, Toprol XL 200mg. Controlled now DMII-hold metformin, A1C in am-6.5. Cont Lantus/ISS per algorithm and consulted glycemic pharmacist. Depression/Anxiety-appears stable. Cont sertraline 100. DVT proph-heparin drip held 2/2 significant hematuria. Full Code Dispo Likely discharge in a day or two PT/OT evaluation Vital Signs: Date Time Temp Pulse Resp B/P (MAP) Pulse Ox O2 Delivery O2 Flow Rate FiO2 08/26/16 09:37 99 08/26/16 08:01 98 Room Air 08/26/16 08:01 36.7 114 20 143/110 (121) 98 Room Air 140/101 (114) 08/26/16 04:31 37.1 114 18 134/91 (105) 97 Room Air 08/26/16 04:00 Room Air 08/26/16 00:00 Room Air 08/25/16 23:48 36.9 101 18 140/102 (115) 97 Room Air 08/25/16 20:00 Room Air 08/25/16 20:00 Room Air 08/25/16 19:32 36.6 106 20 145/92 (109) 98 Room Air 08/25/16 15:27 36.7 95 20 140/105 (117) 97 Room Air 08/25/16 15:18 Room Air Lab Results: Results Past 24 Hours Test 08/25/16 16:14 08/25/16 20:30 08/26/16 05:38 08/26/16 06:54 Range/Units Bedside Glucose 73 129 124 70-99 mg/dl White Blood Count 8.51 4.8-10.8 K/uL Red Blood Count 4.02 4.7-6.1 M/uL Hemoglobin 12.2 14.0-18.0 g/dL Hematocrit 35.8 42-52 % Mean Corpuscular Volume 89.1 80-100 fL Mean Corpuscular Hemoglobin 30.3 25-34 pg Mean Corpuscular Hemoglobin Concent 34.1 32-36 g/dl RDW Standard Deviation 42.9 36.4-46.3 fL RDW Coefficient of Variation 13.1 11.5-14.5 % Platelet Count 214 130-400 K/uL Mean Platelet Volume 10.4 7.4-10.4 fL Activated Partial Thromboplast Time 27.1 21.0-31.0 SECONDS Partial Thromboplastin Ratio 1.0 Sodium Level 148 136-145 mmol/L Potassium Level 3.3 3.5-5.1 mmol/L Chloride Level 118 98-107 mmol/L Carbon Dioxide Level 19 21-32 mmol/L Anion Gap 11.0 3-11 mmol/L Blood Urea Nitrogen 41 7-18 mg/dl Creatinine 3.00 0.60-1.40 mg/dl Est Creatinine Clear Calc Drug Dose 26.3 ml/min Estimated GFR () 23.1 Estimated GFR (Non- 20.0 BUN/Creatinine Ratio 13.5 10-20 Random Glucose 113 70-99 mg/dl Calcium Level 7.3 8.5-10.1 mg/dl
--- NOTE | 2016-08-26 16:43 | Nephrology Progress Note ---
Nephrology Progress Note Date of Service: Aug 26, 2016. Subjective 70 yo male with metastatic prostate cancer on lupron injections as an outpt with chronic hydro that is unchanged. new onset afib. pt was fluid overloaded over the weekend and iv fluids stopped. pt feeling better. making good urine and no clots. has walton now. did have some mild indigestion but feeling better. Objective Date Time Temp Pulse Resp B/P (MAP) Pulse Ox O2 Delivery O2 Flow Rate FiO2 08/26/16 15:56 36.8 88 18 131/91 (104) 98 Room Air 08/26/16 12:34 98 Room Air 08/26/16 11:31 36.8 89 20 135/96 (109) 97 Room Air 08/26/16 09:37 99 08/26/16 08:01 98 Room Air 08/26/16 08:01 36.7 114 20 143/110 (121) 98 Room Air 140/101 (114) 08/26/16 04:31 37.1 114 18 134/91 (105) 97 Room Air 08/26/16 04:00 Room Air 08/26/16 00:00 Room Air 08/25/16 23:48 36.9 101 18 140/102 (115) 97 Room Air 08/25/16 20:00 Room Air 08/25/16 20:00 Room Air 08/25/16 19:32 36.6 106 20 145/92 (109) 98 Room Air Physical Exam: General-aaox3 Eyes-no scleral icterus ENT-mmm Neck-supple Lungs-clear Heart-irregularly irregular Abdomen-bs+ s/nt/nd Extremities-no c/c/e Neuro-nonfocal Derm-no rash or ulcers Current Inpatient Medications Medications (Trade) Dose Ordered Sig/Jadon Route Start Time Stop Time Status Last Admin Dose Admin Acetaminophen (Tylenol Tab) 650 mg Q4H PRN PO 08/20/16 20:30 09/19/16 20:29 Ondansetron HCl (Zofran Inj) 4 mg Q6H PRN IV 08/20/16 20:30 09/19/16 20:29 08/25/16 07:55 4 MG Nitroglycerin (Nitrostat Tab) 0.4 mg UD PRN SL 08/20/16 20:30 09/19/16 20:29 Morphine Sulfate (MoRPHine SULFATE INJ) 2 mg Q30M PRN IV 08/20/16 20:30 09/03/16 20:29 08/21/16 13:00 2 MG Insulin Aspart (novoLOG ASPART) SLIDING SCALE If C... ACHS SC 08/20/16 21:00 09/19/16 20:59 08/26/16 13:01 2 UNITS Glucose (Glucose 40% Gel) 15-30 GRAMS 15 GRAMS... UD PRN PO 08/20/16 20:30 09/19/16 20:29 Glucose (Glucose Chew Tab) 4-8 Tablets 4 Tabl... UD PRN PO 08/20/16 20:30 09/19/16 20:29 Dextrose (Dextrose 50% 50ML Syringe) 25-50ML OF 50% DW IV FOR... UD PRN IV 08/20/16 20:30 09/19/16 20:29 Glucagon (Glucagon Inj) 1 mg UD PRN SQ 08/20/16 20:30 09/19/16 20:29 Atorvastatin Calcium (Lipitor Tab) 20 mg HS PO 08/20/16 21:00 09/19/16 20:59 08/25/16 20:45 20 MG Metoprolol Succinate (Toprol Xl Tab) 200 mg QAM PO 08/21/16 09:00 09/20/16 08:59 08/26/16 08:00 200 MG Sertraline HCl (Zoloft Tab) 100 mg QAM PO 08/21/16 09:00 09/20/16 08:59 08/26/16 08:00 100 MG Zolpidem Tartrate (Ambien Tab) 10 mg HS PO 08/20/16 21:00 09/19/16 20:59 08/25/16 21:26 10 MG Pantoprazole Sodium (Protonix Tab) 20 mg QAM PO 08/21/16 09:00 09/20/16 08:59 08/26/16 07:59 20 MG Heparin Sodium/ Dextrose 500 ml @ 29 mls/hr [id number] PRN IV 08/20/16 22:00 09/19/16 21:59 Future Hold 08/20/16 22:20 29 MLS/HR Miscellaneous (Iv Fluids Completed) 1 ea PRN PRN N/A 08/20/16 22:45 08/20/17 22:44 Clonidine HCl (Catapres Tab) 0.1 mg Q4H PRN PO 08/21/16 14:15 09/20/16 14:14 08/23/16 06:34 0.1 MG Lidocaine HCl (Xylocaine Jelly 2%) 1 ml DAILY PRN EXT 08/22/16 18:23 09/21/16 18:22 08/22/16 18:32 1 ML Amlodipine Besylate (Norvasc Tab) 5 mg BID PO 08/25/16 06:00 09/24/16 05:59 08/26/16 07:59 5 MG Last 24 Hours Test 08/25/16 20:30 08/26/16 05:38 08/26/16 06:54 08/26/16 12:50 Bedside Glucose 129 mg/dl 124 mg/dl 171 mg/dl White Blood Count 8.51 K/uL Red Blood Count 4.02 M/uL Hemoglobin 12.2 g/dL Hematocrit 35.8 % Mean Corpuscular Volume 89.1 fL Mean Corpuscular Hemoglobin 30.3 pg Mean Corpuscular Hemoglobin Concent 34.1 g/dl RDW Standard Deviation 42.9 fL RDW Coefficient of Variation 13.1 % Platelet Count 214 K/uL Mean Platelet Volume 10.4 fL Activated Partial Thromboplast Time 27.1 SECONDS Partial Thromboplastin Ratio 1.0 Sodium Level 148 mmol/L Potassium Level 3.3 mmol/L Chloride Level 118 mmol/L Carbon Dioxide Level 19 mmol/L Anion Gap 11.0 mmol/L Blood Urea Nitrogen 41 mg/dl Creatinine 3.00 mg/dl Est Creatinine Clear Calc Drug Dose 26.3 ml/min Estimated GFR () 23.1 Estimated GFR (Non- 20.0 BUN/Creatinine Ratio 13.5 Random Glucose 113 mg/dl Calcium Level 7.3 mg/dl Assessment & Plan jeannie with creatinine of 3.3 on presentation and worsened to 3.9 and is currently 3. diuresing well. made over 8 liters of urine output in the last 36 hours. follow electrolytes and replete accordingly. continue to hold ruth while we wait for kidney function to form a new baseline. may see recovery up to three months later. hypokalemia-repleting appropriately. will give an additional 20meq of kdur since likely losing it from the post atn diuresis. checking mag and phos tomorrow as well.
[2016-08-26] MEDS: ATORVASTATIN 20 MG TAB PO SCH (20:00)
[2016-08-26] MEDS: ZOLPIDEM TARTRATE 10 MG TAB PO SCH (22:00)
[2016-08-27] VITALS (7 sets, daily range): BP systolic 122–156; BP diastolic 73–118; PULSE 85–115; TEMP 36.5–36.9; O2SAT 96–98
[2016-08-27] MEDS: SERTRALINE HCL 100 MG TAB PO SCH (07:52)
[2016-08-27] MEDS: PANTOprazole SOD 40 MG TAB PO SCH (07:52)
[2016-08-27] MEDS: METOPROLOL SUCC 50MG EXT REL TAB PO SCH (07:52)
[2016-08-27] MEDS: AMLODIPINE BESYLATE 5 MG TAB PO SCH ×2 (07:52→20:36)
[2016-08-27] MEDS: INSULIN ASPART 100 UNITS/ML 3 ML PEN SC SCH ×4 (07:57→20:48)
[2016-08-27 08:40] LABS: BUN/CREATININE RATIO 11.7 (10-20); CALCIUM 7.6 mg/dl (8.5-10.1); CREATININE 2.8 mg/dl (0.60-1.40); MAGNESIUM 1.8 mg/dl (1.8-2.4); POTASSIUM 3.6 mmol/L (3.5-5.1)
[2016-08-27 08:41] LABS: PHOSPHORUS 3.2 mg/dl (2.5-4.9)
--- NOTE | 2016-08-27 11:57 | Progress Note ---
Medicine Progress Note Date & Time of Visit: Aug 27, 2016 at 11:27. Subjective Pt was seen and examined Lying in bed comfortable with no distress Pt said that he feels fine He said that he does not see any blood coming out of the walton he denies any chest pain, palpitation, dizziness and SOB Objective Last 8 Hrs Date Time Temp Pulse Resp B/P (MAP) Pulse Ox O2 Delivery O2 Flow Rate FiO2 08/27/16 08:43 98 Room Air 08/27/16 08:09 36.8 115 16 156/118 (131) 96 Room Air 08/27/16 04:12 36.9 85 21 134/94 (107) 98 Room Air 08/27/16 04:05 Room Air Physical Exam: General- No acute distress Head- atraumatic Eyes- PERRL, EOMI ENT- oropharynx clear Neck- supple, no JVD Lungs- clear to auscultation Heart- irregular rhythm Abdomen- normal bowel sounds, soft Extremities- no calf tenderness Neuro- alert, oriented x 3; PERRL, EOMI; no facial palsy Skin- warm & dry Laboratory Results: Last 24 Hours Test 08/26/16 12:50 08/26/16 16:38 08/26/16 20:23 08/27/16 06:24 Bedside Glucose 171 mg/dl 85 mg/dl 133 mg/dl 111 mg/dl Test 08/27/16 07:42 Activated Partial Thromboplast Time 26.4 SECONDS Partial Thromboplastin Ratio 1.0 Sodium Level 145 mmol/L Potassium Level 3.6 mmol/L Chloride Level 116 mmol/L Carbon Dioxide Level 21 mmol/L Anion Gap 8.0 mmol/L Blood Urea Nitrogen 33 mg/dl Creatinine 2.80 mg/dl Est Creatinine Clear Calc Drug Dose 28.0 ml/min Estimated GFR () 25.2 Estimated GFR (Non- 21.7 BUN/Creatinine Ratio 11.7 Random Glucose 117 mg/dl Calcium Level 7.6 mg/dl Phosphorus Level 3.2 mg/dl Magnesium Level 1.8 mg/dl Assessment & Plan New Onset Atrial fibrillation Diffuse T inversion -not a candidate for any intervention due to hematuria Duration unknown Rate is btw 90 to 110 No Heparin due to Hematuria Continue BB for rate control Cardiology consult-appreciated Asymptomatic ECHO showed * Atrial fibrillation with mildly elevated ventricular rate was present during the echocardiogram. * There is mild concentric left ventricular hypertrophy. * The left ventricular wall motion is normal. * Left ventricular systolic function is low normal. * The LV Ejection Fraction = 50-55%. * The left atrium is moderately dilated. * The right atrium is mildly dilated. * Aortic valve sclerosis mild, without significant aortic valvular stenosis. * Mild aortic regurgitation. * There is mild mitral regurgitation. * There is trace tricuspid regurgitation. * Borderline to mild pulmonary hypertension is present. * The pulmonary artery systolic pressure is calculated to be 40 mm Hg. Acute Kidney Injury CT Abd/ pelvis showed Bilateral hydroureteronephrosis, slightly worsening on the left, with obstruction at the bladder trigone. Renal u/s: showed severe right and moderate left hydroureteronephrosis and apparent soft tissue mass involves the base of the urinary bladder. Creatine peak to 3.9, has been trending down 2.8 today Continue monitor BMP avoid nephrotoxic agent Nephrology on board Bilateral hydroureteronephrosis Gross hematuria H/O Prostate Cancer-treated with Lupron as outpatient Urinary retention-Walton in place Gross hematuria resolved Urology consulted. Holding heparin until further evaluation by Urology. Urology recommended to discharge with walton Urine Culture - No growth Elevated PSA, need workup to r/o recurrence prostate cancer Will need Urologic Procedure Hypertension BP elevated, likely situational. Continuje holding Lisinopril due to EDDIE Cont Norvasc 10, Toprol XL 200mg. Will Add low dose lopressor prn for SBP above 170 DMII Controlled Hba1c 6.5 Metformin on hold Cont Lantus/ISS per algorithm Depression/Anxiety Cont sertraline 100. Stable DVT px. heparin drip held 2/2 significant hematuria. on scds CODE status Full Code Dispo Continue PT/OT Will discharge home once medically stable. Discharge planning: home Consultants: Urology Nephrology cardiology Current Inpatient Medications: Current Inpatient Medications Medications (Trade) Dose Ordered Sig/Jadon Route Start Time Stop Time Status Last Admin Dose Admin Acetaminophen (Tylenol Tab) 650 mg Q4H PRN PO 08/20/16 20:30 09/19/16 20:29 Ondansetron HCl (Zofran Inj) 4 mg Q6H PRN IV 08/20/16 20:30 09/19/16 20:29 08/25/16 07:55 4 MG Nitroglycerin (Nitrostat Tab) 0.4 mg UD PRN SL 08/20/16 20:30 09/19/16 20:29 Morphine Sulfate (MoRPHine SULFATE INJ) 2 mg Q30M PRN IV 08/20/16 20:30 09/03/16 20:29 08/21/16 13:00 2 MG Insulin Aspart (novoLOG ASPART) SLIDING SCALE If C... ACHS SC 08/20/16 21:00 09/19/16 20:59 08/27/16 07:57 7 UNITS Glucose (Glucose 40% Gel) 15-30 GRAMS 15 GRAMS... UD PRN PO 08/20/16 20:30 09/19/16 20:29 Glucose (Glucose Chew Tab) 4-8 Tablets 4 Tabl... UD PRN PO 08/20/16 20:30 09/19/16 20:29 Dextrose (Dextrose 50% 50ML Syringe) 25-50ML OF 50% DW IV FOR... UD PRN IV 08/20/16 20:30 09/19/16 20:29 Glucagon (Glucagon Inj) 1 mg UD PRN SQ 08/20/16 20:30 09/19/16 20:29 Atorvastatin Calcium (Lipitor Tab) 20 mg HS PO 08/20/16 21:00 09/19/16 20:59 08/26/16 20:00 20 MG Metoprolol Succinate (Toprol Xl Tab) 200 mg QAM PO 08/21/16 09:00 09/20/16 08:59 08/27/16 07:52 200 MG Sertraline HCl (Zoloft Tab) 100 mg QAM PO 08/21/16 09:00 09/20/16 08:59 08/27/16 07:52 100 MG Zolpidem Tartrate (Ambien Tab) 10 mg HS PO 08/20/16 21:00 09/19/16 20:59 08/26/16 22:00 10 MG Pantoprazole Sodium (Protonix Tab) 20 mg QAM PO 08/21/16 09:00 09/20/16 08:59 08/27/16 07:52 20 MG Heparin Sodium/ Dextrose 500 ml @ 29 mls/hr [id number] PRN IV 08/20/16 22:00 09/19/16 21:59 Future Hold 08/20/16 22:20 29 MLS/HR Miscellaneous (Iv Fluids Completed) 1 ea PRN PRN N/A 08/20/16 22:45 08/20/17 22:44 Clonidine HCl (Catapres Tab) 0.1 mg Q4H PRN PO 08/21/16 14:15 09/20/16 14:14 08/23/16 06:34 0.1 MG Lidocaine HCl (Xylocaine Jelly 2%) 1 ml DAILY PRN EXT 08/22/16 18:23 09/21/16 18:22 08/22/16 18:32 1 ML Amlodipine Besylate (Norvasc Tab) 5 mg BID PO 08/25/16 06:00 09/24/16 05:59 08/27/16 07:52 5 MG
--- NOTE | 2016-08-27 16:07 | Nephrology Progress Note ---
Nephrology Progress Note Date of Service: Aug 27, 2016. Subjective 70 yo male with metastatic prostate cancer on lupron injections as an outpt with chronic hydro that is unchanged. new onset afib. pts creatinine peaked and has started to improve and pt is diuresing nicely. volume status much improved. pt in good spirits. wanting to go home soon. Objective Date Time Temp Pulse Resp B/P (MAP) Pulse Ox O2 Delivery O2 Flow Rate FiO2 08/27/16 15:12 36.5 93 22 122/86 (98) 97 Room Air 08/27/16 12:08 36.7 90 16 138/87 (104) 97 Room Air 08/27/16 12:05 98 Room Air 08/27/16 08:43 98 Room Air 08/27/16 08:09 36.8 115 16 156/118 (131) 96 Room Air 08/27/16 04:12 36.9 85 21 134/94 (107) 98 Room Air 08/27/16 04:05 Room Air 08/27/16 00:00 Room Air 08/26/16 23:42 37.1 101 21 134/98 (110) 97 Room Air 08/26/16 20:00 98 Room Air 08/26/16 19:31 36.9 105 18 145/117 (126) 98 Room Air Physical Exam: General-aaox3 Eyes-no scleral icterus ENT-mmm Neck-supple Lungs-cta Heart-irregularly irregular Abdomen-bs+ s/nt/nd Extremities-no c/c/e Neuro-nonfocal Derm-no rash or ulcers -+walton Current Inpatient Medications Medications (Trade) Dose Ordered Sig/Jadon Route Start Time Stop Time Status Last Admin Dose Admin Acetaminophen (Tylenol Tab) 650 mg Q4H PRN PO 08/20/16 20:30 09/19/16 20:29 Ondansetron HCl (Zofran Inj) 4 mg Q6H PRN IV 08/20/16 20:30 09/19/16 20:29 08/25/16 07:55 4 MG Nitroglycerin (Nitrostat Tab) 0.4 mg UD PRN SL 08/20/16 20:30 09/19/16 20:29 Morphine Sulfate (MoRPHine SULFATE INJ) 2 mg Q30M PRN IV 08/20/16 20:30 09/03/16 20:29 08/21/16 13:00 2 MG Insulin Aspart (novoLOG ASPART) SLIDING SCALE If C... ACHS SC 08/20/16 21:00 09/19/16 20:59 08/27/16 13:04 5 UNITS Glucose (Glucose 40% Gel) 15-30 GRAMS 15 GRAMS... UD PRN PO 08/20/16 20:30 09/19/16 20:29 Glucose (Glucose Chew Tab) 4-8 Tablets 4 Tabl... UD PRN PO 08/20/16 20:30 09/19/16 20:29 Dextrose (Dextrose 50% 50ML Syringe) 25-50ML OF 50% DW IV FOR... UD PRN IV 08/20/16 20:30 09/19/16 20:29 Glucagon (Glucagon Inj) 1 mg UD PRN SQ 08/20/16 20:30 09/19/16 20:29 Atorvastatin Calcium (Lipitor Tab) 20 mg HS PO 08/20/16 21:00 09/19/16 20:59 08/26/16 20:00 20 MG Metoprolol Succinate (Toprol Xl Tab) 200 mg QAM PO 08/21/16 09:00 09/20/16 08:59 08/27/16 07:52 200 MG Sertraline HCl (Zoloft Tab) 100 mg QAM PO 08/21/16 09:00 09/20/16 08:59 08/27/16 07:52 100 MG Zolpidem Tartrate (Ambien Tab) 10 mg HS PO 08/20/16 21:00 09/19/16 20:59 08/26/16 22:00 10 MG Pantoprazole Sodium (Protonix Tab) 20 mg QAM PO 08/21/16 09:00 09/20/16 08:59 08/27/16 07:52 20 MG Heparin Sodium/ Dextrose 500 ml @ 29 mls/hr [id number] PRN IV 08/20/16 22:00 09/19/16 21:59 Future Hold 08/20/16 22:20 29 MLS/HR Miscellaneous (Iv Fluids Completed) 1 ea PRN PRN N/A 08/20/16 22:45 08/20/17 22:44 Clonidine HCl (Catapres Tab) 0.1 mg Q4H PRN PO 08/21/16 14:15 09/20/16 14:14 08/23/16 06:34 0.1 MG Lidocaine HCl (Xylocaine Jelly 2%) 1 ml DAILY PRN EXT 08/22/16 18:23 09/21/16 18:22 08/22/16 18:32 1 ML Amlodipine Besylate (Norvasc Tab) 5 mg BID PO 08/25/16 06:00 09/24/16 05:59 08/27/16 07:52 5 MG Last 24 Hours Test 08/26/16 16:38 08/26/16 20:23 08/27/16 06:24 08/27/16 07:42 Bedside Glucose 85 mg/dl 133 mg/dl 111 mg/dl Activated Partial Thromboplast Time 26.4 SECONDS Partial Thromboplastin Ratio 1.0 Sodium Level 145 mmol/L Potassium Level 3.6 mmol/L Chloride Level 116 mmol/L Carbon Dioxide Level 21 mmol/L Anion Gap 8.0 mmol/L Blood Urea Nitrogen 33 mg/dl Creatinine 2.80 mg/dl Est Creatinine Clear Calc Drug Dose 28.0 ml/min Estimated GFR () 25.2 Estimated GFR (Non- 21.7 BUN/Creatinine Ratio 11.7 Random Glucose 117 mg/dl Calcium Level 7.6 mg/dl Phosphorus Level 3.2 mg/dl Magnesium Level 1.8 mg/dl Test 08/27/16 11:41 Bedside Glucose 83 mg/dl Assessment & Plan jeannie with creatinine of 3.3 on presentation and worsened to 3.9 and is currently 2.8. diuresing well. volume status much improved. ok from renal perspective to go home and follow labs as an outpt. electrolytes are stable. no lightheadedness. with time, concentration gradient should be reset and urination will eventually start to decrease as kidney function hopefully improves back to baseline.
[2016-08-27] MEDS: ZOLPIDEM TARTRATE 10 MG TAB PO SCH (20:36)
[2016-08-27] MEDS: ATORVASTATIN 20 MG TAB PO SCH (20:37)
[2016-08-28] VITALS (8 sets, daily range): BP systolic 123–136; BP diastolic 78–92; PULSE 78–124; TEMP 36.6–36.9; O2SAT 96–98
[2016-08-28 07:14] LABS: MEAN CELL VOLUME 87.8 fL (80-100); MEAN CORPUSCULAR HEMOGLOBIN 28.6 pg (25-34); MEAN CORPUSCULAR HGB CONC 32.6 g/dl (32-36); MEAN PLATELET VOLUME 9.9 fL (7.4-10.4); PLATELET COUNT 257 K/uL (130-400); RED BLOOD COUNT 4.33 M/uL (4.7-6.1); WHITE BLOOD COUNT 9.48 K/uL (4.8-10.8)
[2016-08-28 07:36] LABS: BUN/CREATININE RATIO 10.9 (10-20); CALCIUM 7.6 mg/dl (8.5-10.1); CREATININE 2.7 mg/dl (0.60-1.40); POTASSIUM 3.4 mmol/L (3.5-5.1)
[2016-08-28] MEDS: SERTRALINE HCL 100 MG TAB PO SCH (07:51)
[2016-08-28] MEDS: METOPROLOL SUCC 50MG EXT REL TAB PO SCH (07:52)
[2016-08-28] MEDS: PANTOprazole SOD 40 MG TAB PO SCH (07:53)
[2016-08-28] MEDS: AMLODIPINE BESYLATE 5 MG TAB PO SCH ×2 (07:53→20:53)
[2016-08-28] MEDS: INSULIN ASPART 100 UNITS/ML 3 ML PEN SC SCH ×4 (07:54→20:53)
[2016-08-28] MEDS ORDERED: POTASSIUM CHLORIDE 20 MEQ TABCR PO ONE (08:00)
--- NOTE | 2016-08-28 08:43 | Progress Note ---
Subjective Date of Service: Aug 28, 2016. Subjective Pt evaluation today including: conversation w/ patient, chart review, lab review Voiding: walton catheter in place (patent, draining clear, yellow urine) 70 yo male with ARF and UR. Cr very slowly trending down. 2.7 today. Pt denies pain. Problem List Medical Problems: (1) Acute renal failure Status: Acute (2) Hip sprain Status: Acute (3) New onset atrial fibrillation Status: Acute Review of Systems Constitutional: No fever, No chills Respiratory: No shortness of breath Cardiac: No chest pain Abdomen: No pain, No nausea, No vomiting Male : No hematuria Heme: No abnormal bleeding/bruising Objective Vital Signs Date Time Temp Pulse Resp B/P (MAP) Pulse Ox O2 Delivery O2 Flow Rate FiO2 08/28/16 08:00 97 Room Air 08/28/16 04:00 Room Air 08/28/16 03:53 36.8 107 20 132/78 (96) 97 Room Air 08/28/16 00:03 36.8 118 20 126/81 (96) 97 Room Air 08/27/16 23:59 Room Air 08/27/16 20:00 Room Air 08/27/16 18:53 36.7 111 19 127/73 (91) 98 Room Air 08/27/16 16:00 Room Air 08/27/16 15:12 36.5 93 22 122/86 (98) 97 Room Air 08/27/16 12:08 36.7 90 16 138/87 (104) 97 Room Air 08/27/16 12:05 98 Room Air 08/27/16 08:43 98 Room Air Physical Exam General Appearance: no apparent distress Eyes: normal inspection ENT: hearing grossly normal Neck: no JVD Respiratory/Chest: no respiratory distress, no accessory muscle use Cardiovascular: no JVD Extremities: normal inspection Neurologic/Psychiatric: alert, normal mood/affect, oriented x 3 Skin: normal color Laboratory Results Last 24 Hours Test 08/27/16 11:41 08/27/16 16:00 08/27/16 20:43 08/28/16 06:48 Bedside Glucose 83 mg/dl 88 mg/dl 95 mg/dl 101 mg/dl Test 08/28/16 06:52 White Blood Count 9.48 K/uL Red Blood Count 4.33 M/uL Hemoglobin 12.4 g/dL Hematocrit 38.0 % Mean Corpuscular Volume 87.8 fL Mean Corpuscular Hemoglobin 28.6 pg Mean Corpuscular Hemoglobin Concent 32.6 g/dl RDW Standard Deviation 41.9 fL RDW Coefficient of Variation 13.0 % Platelet Count 257 K/uL Mean Platelet Volume 9.9 fL Sodium Level 145 mmol/L Potassium Level 3.4 mmol/L Chloride Level 115 mmol/L Carbon Dioxide Level 23 mmol/L Anion Gap 7.0 mmol/L Blood Urea Nitrogen 30 mg/dl Creatinine 2.70 mg/dl Est Creatinine Clear Calc Drug Dose 28.8 ml/min Estimated GFR () 26.3 Estimated GFR (Non- 22.7 BUN/Creatinine Ratio 10.9 Random Glucose 111 mg/dl Calcium Level 7.6 mg/dl Assessment and Plan A/P: Metastatic prostate cancer, gross hematuria, urinary retention, ARF AFVSS. Hematuria resolved. Will plan to leave walton catheter in place until Cr improves to at least 2.0. Can attempt TOV as inpatient or outpatient once improved. No further management at this time. Pt OK for d/c home from perspective. Will arrange for outpatient f/u in 1 week with repeat BMP. Possible TOV at that time if Cr 2.0 or less. Recall PRN issues. Discharge planning: home
--- NOTE | 2016-08-28 15:28 | Progress Note ---
Medicine Progress Note Date & Time of Visit: Aug 28, 2016 at 15:22. Subjective Pt was seen and examined Sitting at the edge of the bed with no distress Pt said that he feels fine Denies any chest pain, palpitation, dizziness and SOB Objective Last 8 Hrs Date Time Temp Pulse Resp B/P (MAP) Pulse Ox O2 Delivery O2 Flow Rate FiO2 08/28/16 12:01 36.7 101 16 123/89 (100) 98 Room Air 08/28/16 12:00 96 Room Air 08/28/16 08:00 97 Room Air Physical Exam: General- No acute distress Head- atraumatic Eyes- PERRL, EOMI ENT- oropharynx clear Neck- supple, no JVD Lungs- clear to auscultation Heart- irregular rhythm Abdomen- normal bowel sounds, soft Extremities- no calf tenderness Neuro- alert, oriented x 3; PERRL, EOMI; no facial palsy Skin- warm & dry Laboratory Results: Last 24 Hours Test 08/27/16 16:00 08/27/16 20:43 08/28/16 06:48 08/28/16 06:52 Bedside Glucose 88 mg/dl 95 mg/dl 101 mg/dl White Blood Count 9.48 K/uL Red Blood Count 4.33 M/uL Hemoglobin 12.4 g/dL Hematocrit 38.0 % Mean Corpuscular Volume 87.8 fL Mean Corpuscular Hemoglobin 28.6 pg Mean Corpuscular Hemoglobin Concent 32.6 g/dl RDW Standard Deviation 41.9 fL RDW Coefficient of Variation 13.0 % Platelet Count 257 K/uL Mean Platelet Volume 9.9 fL Sodium Level 145 mmol/L Potassium Level 3.4 mmol/L Chloride Level 115 mmol/L Carbon Dioxide Level 23 mmol/L Anion Gap 7.0 mmol/L Blood Urea Nitrogen 30 mg/dl Creatinine 2.70 mg/dl Est Creatinine Clear Calc Drug Dose 28.8 ml/min Estimated GFR () 26.3 Estimated GFR (Non- 22.7 BUN/Creatinine Ratio 10.9 Random Glucose 111 mg/dl Calcium Level 7.6 mg/dl Test 08/28/16 11:28 Bedside Glucose 125 mg/dl Assessment & Plan New Onset Atrial fibrillation Diffuse T inversion -not a candidate for any intervention due to hematuria Duration unknown Rate is btw 90 to 110 Not on anticoagulant due to Hematuria Continue BB for rate control Cardiology consult-appreciated Asymptomatic ECHO showed * Atrial fibrillation with mildly elevated ventricular rate was present during the echocardiogram. * There is mild concentric left ventricular hypertrophy. * The left ventricular wall motion is normal. * Left ventricular systolic function is low normal. * The LV Ejection Fraction = 50-55%. * The left atrium is moderately dilated. * The right atrium is mildly dilated. * Aortic valve sclerosis mild, without significant aortic valvular stenosis. * Mild aortic regurgitation. * There is mild mitral regurgitation. * There is trace tricuspid regurgitation. * Borderline to mild pulmonary hypertension is present. * The pulmonary artery systolic pressure is calculated to be 40 mm Hg. Acute Kidney Injury CT Abd/ pelvis showed Bilateral hydroureteronephrosis, slightly worsening on the left, with obstruction at the bladder trigone. Renal u/s: showed severe right and moderate left hydroureteronephrosis and apparent soft tissue mass involves the base of the urinary bladder. Creatine peak to 3.9, has been trending down 2.7 today Continue monitor BMP avoid nephrotoxic agent Nephrology on board and ok to be discharge home from nephro standpoint check BMP within 1 week Bilateral hydroureteronephrosis Gross hematuria H/O Prostate Cancer-treated with Lupron as outpatient Urinary retention-Walton in place Gross hematuria resolved Urology consulted. Holding heparin until further evaluation by Urology. Urology recommended to discharge with walton Urine Culture - No growth Elevated PSA, need workup to r/o recurrence prostate cancer Ok from urology standpoint to discharge home with the walton Plan to remove Walton when creatine below 2 BMP in 1 week Hypertension BP elevated, likely situational. Continuje holding Lisinopril due to EDDIE Cont Norvasc 10, Toprol XL 200mg. Will Add low dose lopressor prn for SBP above 170 stable DMII Controlled Hba1c 6.5 Metformin on hold Cont Lantus/ISS per algorithm Depression/Anxiety Cont sertraline 100. Stable DVT px. heparin drip held 2/2 significant hematuria. on scds CODE status Full Code Dispo Continue PT/OT Will discharge home tomorrow. Discharge planning: home Consultants: Urology Nephrology cardiology Current Inpatient Medications: Current Inpatient Medications Medications (Trade) Dose Ordered Sig/Jadon Route Start Time Stop Time Status Last Admin Dose Admin Acetaminophen (Tylenol Tab) 650 mg Q4H PRN PO 08/20/16 20:30 09/19/16 20:29 Ondansetron HCl (Zofran Inj) 4 mg Q6H PRN IV 08/20/16 20:30 09/19/16 20:29 08/25/16 07:55 4 MG Nitroglycerin (Nitrostat Tab) 0.4 mg UD PRN SL 08/20/16 20:30 09/19/16 20:29 Morphine Sulfate (MoRPHine SULFATE INJ) 2 mg Q30M PRN IV 08/20/16 20:30 09/03/16 20:29 08/21/16 13:00 2 MG Insulin Aspart (novoLOG ASPART) SLIDING SCALE If C... ACHS SC 08/20/16 21:00 09/19/16 20:59 08/28/16 11:53 7 UNITS Glucose (Glucose 40% Gel) 15-30 GRAMS 15 GRAMS... UD PRN PO 08/20/16 20:30 09/19/16 20:29 Glucose (Glucose Chew Tab) 4-8 Tablets 4 Tabl... UD PRN PO 08/20/16 20:30 09/19/16 20:29 Dextrose (Dextrose 50% 50ML Syringe) 25-50ML OF 50% DW IV FOR... UD PRN IV 08/20/16 20:30 09/19/16 20:29 Glucagon (Glucagon Inj) 1 mg UD PRN SQ 08/20/16 20:30 09/19/16 20:29 Atorvastatin Calcium (Lipitor Tab) 20 mg HS PO 08/20/16 21:00 09/19/16 20:59 08/27/16 20:37 20 MG Metoprolol Succinate (Toprol Xl Tab) 200 mg QAM PO 08/21/16 09:00 09/20/16 08:59 08/28/16 07:52 200 MG Sertraline HCl (Zoloft Tab) 100 mg QAM PO 08/21/16 09:00 09/20/16 08:59 08/28/16 07:51 100 MG Zolpidem Tartrate (Ambien Tab) 10 mg HS PO 08/20/16 21:00 09/19/16 20:59 08/27/16 20:36 10 MG Pantoprazole Sodium (Protonix Tab) 20 mg QAM PO 08/21/16 09:00 09/20/16 08:59 08/28/16 07:53 20 MG Heparin Sodium/ Dextrose 500 ml @ 29 mls/hr [id number] PRN IV 08/20/16 22:00 09/19/16 21:59 Future Hold 08/20/16 22:20 29 MLS/HR Miscellaneous (Iv Fluids Completed) 1 ea PRN PRN N/A 08/20/16 22:45 08/20/17 22:44 Clonidine HCl (Catapres Tab) 0.1 mg Q4H PRN PO 08/21/16 14:15 09/20/16 14:14 08/23/16 06:34 0.1 MG Lidocaine HCl (Xylocaine Jelly 2%) 1 ml DAILY PRN EXT 08/22/16 18:23 09/21/16 18:22 08/22/16 18:32 1 ML Amlodipine Besylate (Norvasc Tab) 5 mg BID PO 08/25/16 06:00 09/24/16 05:59 08/28/16 07:53 5 MG
[2016-08-28] MEDS: ZOLPIDEM TARTRATE 10 MG TAB PO SCH (20:53)
[2016-08-28] MEDS: ATORVASTATIN 20 MG TAB PO SCH (20:53)
[2016-08-29 04:01] VITALS: BP 127/87; PULSE 77; TEMP 36.8; O2SAT 98
[2016-08-29 07:08] VITALS: BP_SYST 140; BP_SYST 160; BP_DIAS 102; BP_DIAS 108; PULSE 88; TEMP 36.8; O2SAT 96
[2016-08-29] MEDS: AMLODIPINE BESYLATE 5 MG TAB PO SCH (07:19)
[2016-08-29] MEDS: PANTOprazole SOD 40 MG TAB PO SCH (07:20)
[2016-08-29] MEDS: METOPROLOL SUCC 50MG EXT REL TAB PO SCH (07:20)
[2016-08-29] MEDS: SERTRALINE HCL 100 MG TAB PO SCH (07:20)
[2016-08-29 07:59] LABS: BUN/CREATININE RATIO 12.8 (10-20); CALCIUM 7.4 mg/dl (8.5-10.1); CREATININE 2.4 mg/dl (0.60-1.40); POTASSIUM 3.6 mmol/L (3.5-5.1)
[2016-08-29] MEDS: INSULIN ASPART 100 UNITS/ML 3 ML PEN SC SCH ×2 (08:11→12:10)
[2016-08-29 08:16] VITALS: BP 132/85
--- NOTE | 2016-08-29 13:03 | Progress Note ---
Medicine Progress Note Date & Time of Visit: Aug 29, 2016 at 12:56. Subjective Pt was seen and examined Sitting in bed with no distress Pt said that he feels fine He denies any chest pain, palpitation, dizziness and SOB Objective Last 8 Hrs Date Time Temp Pulse Resp B/P (MAP) Pulse Ox O2 Delivery O2 Flow Rate FiO2 08/29/16 08:16 132/85 (101) 08/29/16 08:00 Room Air 08/29/16 07:08 36.8 88 19 160/108 (125) 96 Room Air 140/102 (115) Physical Exam: General- No acute distress Head- atraumatic Eyes- PERRL, EOMI ENT- oropharynx clear Neck- supple, no JVD Lungs- clear to auscultation Heart- irregular rhythm Abdomen- normal bowel sounds, soft Extremities- no calf tenderness Neuro- alert, oriented x 3; PERRL, EOMI; no facial palsy Skin- warm & dry Laboratory Results: Last 24 Hours Test 08/28/16 16:14 08/28/16 20:04 08/29/16 06:31 08/29/16 06:33 Bedside Glucose 94 mg/dl 172 mg/dl 111 mg/dl Sodium Level 145 mmol/L Potassium Level 3.6 mmol/L Chloride Level 114 mmol/L Carbon Dioxide Level 24 mmol/L Anion Gap 7.0 mmol/L Blood Urea Nitrogen 31 mg/dl Creatinine 2.40 mg/dl Est Creatinine Clear Calc Drug Dose 32.5 ml/min Estimated GFR () 30.3 Estimated GFR (Non- 26.2 BUN/Creatinine Ratio 12.8 Random Glucose 112 mg/dl Calcium Level 7.4 mg/dl Test 08/29/16 11:03 Bedside Glucose 87 mg/dl Assessment & Plan New Onset Atrial fibrillation Diffuse T inversion -not a candidate for any intervention due to hematuria Duration unknown Rate is btw 80 to 100's Not on anticoagulant due to Hematuria Continue BB for rate control Cardiology consult-appreciated case discussed with cardiology At this time no anticoagulation until stable with urology Ok to start on aspirin 81 mg after follow up with urology in 1 week Pt understands the risk: No anticoagulant put him at risk of stroke Anticoagulant put him at risk of bleeding Follow up with cardiology as an outpatient btw 3-4 weeks Asymptomatic ECHO showed * Atrial fibrillation with mildly elevated ventricular rate was present during the echocardiogram. * There is mild concentric left ventricular hypertrophy. * The left ventricular wall motion is normal. * Left ventricular systolic function is low normal. * The LV Ejection Fraction = 50-55%. * The left atrium is moderately dilated. * The right atrium is mildly dilated. * Aortic valve sclerosis mild, without significant aortic valvular stenosis. * Mild aortic regurgitation. * There is mild mitral regurgitation. * There is trace tricuspid regurgitation. * Borderline to mild pulmonary hypertension is present. * The pulmonary artery systolic pressure is calculated to be 40 mm Hg. Acute Kidney Injury CT Abd/ pelvis showed Bilateral hydroureteronephrosis, slightly worsening on the left, with obstruction at the bladder trigone. Renal u/s: showed severe right and moderate left hydroureteronephrosis and apparent soft tissue mass involves the base of the urinary bladder. Creatine peak to 3.9, has been trending down 2.4 today Continue monitor BMP avoid nephrotoxic agent Nephrology on board and ok to be discharged home from nephro standpoint check BMP within 1 week Bilateral hydroureteronephrosis Gross hematuria H/O Prostate Cancer-treated with Lupron as outpatient Urinary retention-Walton in place Gross hematuria resolved Urology consulted. Holding heparin until further evaluation by Urology. Urology recommended to discharge with walton Urine Culture - No growth Elevated PSA, need workup to r/o recurrence prostate cancer Ok from urology standpoint to discharge home with the walton Plan to remove Walton when creatine below 2 creatine 2.4 today BMP in 1 week Hypertension BP elevated, likely situational. Continuje holding Lisinopril due to EDDIE Cont Norvasc 10, Toprol XL 200mg. Will Add low dose lopressor prn for SBP above 170 stable DMII Controlled Hba1c 6.5 Metformin on hold Cont Lantus/ISS per algorithm Depression/Anxiety Cont sertraline 100. Stable DVT px. heparin drip held 2/2 significant hematuria. on scds CODE status Full Code Dispo Continue PT/OT Will discharge home today Discharge planning: home Consultants: Urology Nephrology cardiology Current Inpatient Medications: Current Inpatient Medications Medications (Trade) Dose Ordered Sig/Jadon Route Start Time Stop Time Status Last Admin Dose Admin Acetaminophen (Tylenol Tab) 650 mg Q4H PRN PO 08/20/16 20:30 09/19/16 20:29 Ondansetron HCl (Zofran Inj) 4 mg Q6H PRN IV 08/20/16 20:30 09/19/16 20:29 08/25/16 07:55 4 MG Nitroglycerin (Nitrostat Tab) 0.4 mg UD PRN SL 08/20/16 20:30 09/19/16 20:29 Morphine Sulfate (MoRPHine SULFATE INJ) 2 mg Q30M PRN IV 08/20/16 20:30 09/03/16 20:29 08/21/16 13:00 2 MG Insulin Aspart (novoLOG ASPART) SLIDING SCALE If C... ACHS SC 08/20/16 21:00 09/19/16 20:59 08/29/16 12:10 3 UNITS Glucose (Glucose 40% Gel) 15-30 GRAMS 15 GRAMS... UD PRN PO 08/20/16 20:30 09/19/16 20:29 Glucose (Glucose Chew Tab) 4-8 Tablets 4 Tabl... UD PRN PO 08/20/16 20:30 09/19/16 20:29 Dextrose (Dextrose 50% 50ML Syringe) 25-50ML OF 50% DW IV FOR... UD PRN IV 08/20/16 20:30 09/19/16 20:29 Glucagon (Glucagon Inj) 1 mg UD PRN SQ 08/20/16 20:30 09/19/16 20:29 Atorvastatin Calcium (Lipitor Tab) 20 mg HS PO 08/20/16 21:00 09/19/16 20:59 08/28/16 20:53 20 MG Metoprolol Succinate (Toprol Xl Tab) 200 mg QAM PO 08/21/16 09:00 09/20/16 08:59 08/29/16 07:20 200 MG Sertraline HCl (Zoloft Tab) 100 mg QAM PO 08/21/16 09:00 09/20/16 08:59 08/29/16 07:20 100 MG Zolpidem Tartrate (Ambien Tab) 10 mg HS PO 08/20/16 21:00 09/19/16 20:59 08/28/16 20:53 10 MG Pantoprazole Sodium (Protonix Tab) 20 mg QAM PO 08/21/16 09:00 09/20/16 08:59 08/29/16 07:20 20 MG Heparin Sodium/ Dextrose 500 ml @ 29 mls/hr [id number] PRN IV 08/20/16 22:00 09/19/16 21:59 Future Hold 08/20/16 22:20 29 MLS/HR Miscellaneous (Iv Fluids Completed) 1 ea PRN PRN N/A 08/20/16 22:45 08/20/17 22:44 Clonidine HCl (Catapres Tab) 0.1 mg Q4H PRN PO 08/21/16 14:15 09/20/16 14:14 08/23/16 06:34 0.1 MG Lidocaine HCl (Xylocaine Jelly 2%) 1 ml DAILY PRN EXT 08/22/16 18:23 09/21/16 18:22 08/22/16 18:32 1 ML Amlodipine Besylate (Norvasc Tab) 5 mg BID PO 08/25/16 06:00 09/24/16 05:59 08/29/16 07:19 5 MG
[2016-08-29 13:18] VITALS: BP 115/79; PULSE 87; TEMP 37; O2SAT 96
--- NOTE | 2016-08-29 13:38 | Discharge Instructions ---
Discharge Instructions Date of Service Aug 29, 2016. Admission Reason for Admission: Atrial Fibrillation, New Onset Discharge Discharge Diagnosis / Problem: New Onset AFib, Bilateral hydroureteronephrosis , Acute kidney injury, HTN Discharge Goals Goal(s): Decrease discomfort, Improve function, Improve disease control Activity Recommendations Activity Limitations: resume your previous activity (as tolerated) . Instructions / Follow-Up Instructions / Follow-Up Discharge home with Aaron Follow up appointment with Dr. Lanier (Dr. Tompkins's partner) on 09/02 @ 11:05 AM Follow up with Urology in 1 week ( please call to schedule appointment) Follow up with Nephrology Dr. Jackson (Dr. Jackson's office will call you for the appointment) Follow up with cardiology Dr. Schafer on Sep 18 @ 3:05 pm Keep your follow up appointment with the oncology for tomorrow (08/30) Check BMP on Friday (lab order given to patient) Continue Aaron cath until discontinue by urologist Hold Lisinopril and Metformin for now, until OK by your physician to restart them. baby aspirin after seeing the urologist (if blood in the urine resolves and if ok by urologist to start it). Monitor blood pressure and bring blood pressure log to your next follow up appointment. Follow a healthy diet, limited concentrate sugar and low cab diet Current Hospital Diet Patient's current hospital diet: AHA Diet (Heart Healthy), Diabetes Type 2 Diet Discharge Diet Recommended Diet: AHA Diet (Heart Healthy) Pending Studies Studies pending at discharge: no Laboratory Results Hemoglobin A1c Test 08/21/16 05:12 Range/Units Estimated Average Glucose 140 mg/dl Hemoglobin A1c 6.5 H 4.5-5.6 % Lipid Panel Test 08/21/16 05:12 Range/Units Triglycerides Level 208 H 0-150 mg/dl Cholesterol Level 101 0-200 mg/dl HDL Cholesterol 39 mg/dl Cholesterol/HDL Ratio 2.6 LDL Cholesterol, Calculated 20 mg/dl Medical Emergencies . Who to Call and When: Medical Emergencies: If at any time you feel your situation is an emergency, please call 911 immediately. . Non-Emergent Contact Non-Emergency issues call your: Primary Care Provider Call Non-Emergent contact if: you have a fever, you have any medication questions . . "Provider Documentation" section prepared by Maki Luo. . VTE Core Measure Inpt VTE Proph given/why not?: SCD's, Contraindicated (Hematuria)
[2016-08-29 13:49] VITALS: BP 115/79; PULSE 87; TEMP 37; O2SAT 96
--- NOTE | 2016-08-30 18:00 | Discharge Summary ---
Discharge Summary Date of Service Aug 30, 2016. Discharge Summary Admission Date: Aug 20, 2016 at 20:40 Discharge Date: Aug 29, 2016 Discharge Disposition: Home Principal Diagnosis: New onset of AFIB Secondary Diagnoses/Problems: Bilateral hydroureteronephrosis Acute kidney injury hematuria HTN DM type 2 Depression/Anxiety Procedures: Interpretation Summary * Name: VONDA GOLDEN Study Date: 08/21/2016 08:40 AM BP: 156/101 mmHg * Patient Location: [facility] HR: 98 * : 1945 (M/d/yyyy) Gender: Male Height: 66 in * Age: 70 yrs Ethnicity: [place] Weight: 240 lb * Ordering Physician: Sally Otto * Referring Physician: Self, Referred * Performed By: Jessika Thompson RCS * * Reason For Study: A-FIB * BSA: 2.2 m2 * The study was technically adequate. * -- Conclusions -- * Atrial fibrillation with mildly elevated ventricular rate was present during the echocardiogram. * There is mild concentric left ventricular hypertrophy. * The left ventricular wall motion is normal. * Left ventricular systolic function is low normal. * The LV Ejection Fraction = 50-55%. * The left atrium is moderately dilated. * The right atrium is mildly dilated. * Aortic valve sclerosis mild, without significant aortic valvular stenosis. * Mild aortic regurgitation. * There is mild mitral regurgitation. * There is trace tricuspid regurgitation. * Borderline to mild pulmonary hypertension is present. * The pulmonary artery systolic pressure is calculated to be 40 mm Hg. * There is no prior study available for comparison. Procedure Details * A complete two-dimensional transthoracic echocardiogram was performed (2D, M- mode, Doppler and color flow Doppler). * A contrast injection of Definity was performed to improve assessment of LV function. * Contrast was injected into an intravenous site in the left arm. * One vial of Definity ultrasound contrast was diluted in normal saline to a total volume of 10 ml. A total of '2' ml of solution was administered during imaging. * Lot # [id number] of Definity utilized for procedure. * Expiration date SEP 27. * The attending nurse who injected the contrast agent was REBECCA LYONS, MAGNO. Left Ventricle * The left ventricle is normal in size. * There is mild concentric left ventricular hypertrophy. * Left ventricular systolic function is low normal. * Ejection Fraction = 50-55%. * The left ventricular wall motion is normal. Right Ventricle * The right ventricle is normal in size and function. Atria * The left atrium is moderately dilated. * The right atrium is mildly dilated. * There is no evidence of atrial septal defect, but resolution does not allow assessment for a patent foramen ovale. Mitral Valve * There is mild mitral annular calcification. * There is no mitral valve stenosis. * There is mild mitral regurgitation. Tricuspid Valve * The tricuspid valve is normal. * There is no tricuspid stenosis. * There is trace tricuspid regurgitation. * Borderline to mild pulmonary hypertension is present. The pulmonary artery systolic pressure is calculated to be 40 mm Hg. Aortic Valve * The aortic valve is trileaflet. * Aortic valve sclerosis mild, without significant aortic valvular stenosis. * Aortic stenosis is absent. * Mild aortic regurgitation. Pulmonic Valve * The pulmonary valve is not well seen, but the Doppler examination is normal without significant regurgitation or stenosis. Great Vessels * The aortic root and proximal ascending aorta are normal sized. Pericardium/Pleural * There is no pericardial effusion. Great Vessels * Normal inferior vena cava diameter and respiratory variation suggests normal central venous pressure. ABD/PELVIS WITHOUT FOR STONE CLINICAL HISTORY: 70 years-old Male presenting with Hydronephrosis, prostate cancer, renal failure. TECHNIQUE: Multidetector CT of the abdomen and pelvis was performed without the use of intravenous contrast. IV contrast: None. COMPARISON: 05/27/2016. CT DOSE: The estimated cumulative dose is 1738.85 mGy.cm. 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 Lung bases: Minimal reticular subpleural opacities at the right lung base are unchanged from prior, possibly scarring or postinfectious/postinflammatory. Regional bronchial wall thickening new from prior. Trace right pleural thickening and calcification in the posterior costophrenic sulcus, new from prior. Normal heart size. Coronary artery calcification. No pericardial effusion. 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 Biliary: No intrahepatic or extrahepatic biliary ductal dilatation. Normal gallbladder. Pancreas: Moderate parenchymal atrophy. Few small pancreatic calcifications, possibly chronic pancreatitis. Spleen: Normal. Adrenal glands: Normal. Kidneys and ureters: Chronic severe right hydroureteronephrosis with chronic right renal atrophy. The right ureter is dilated to the level of the bladder trigone. Moderate left hydroureteronephrosis is stable to increased from prior. The left ureter is dilated to the level of the bladder trigone. Multiple phleboliths noted. Gastrointestinal tract: Normal. No bowel obstruction. Peritoneal cavity: No free fluid or intraperitoneal gas. Bladder: Bladder decompressed with a Walton catheter. Extensive perivesicular fat stranding, new from prior. Suggestion of soft tissue density in the region of the bladder trigone with diffuse bladder wall thickening. Pelvic organs: Given the diminutive size of the expected prostate, this may indicate post prostatectomy or post radiation change. Vasculature: Mild atherosclerosis of the normal caliber abdominal aorta. Lymph nodes: No enlarged lymph nodes in the abdomen or pelvis. Abdominal wall: Infiltration in the anterior abdominal wall bilaterally may indicate injection granulomas. Infiltration of the lower flanks, minimal anasarca. Musculoskeletal: Sclerotic foci in the pelvis unchanged from prior. Additionally, sclerotic focus in the lower sacrum consistent with known metastatic lesion is unchanged. Degenerative changes in the lumbar spine. IMPRESSION: 1. The diminutive appearance of the expected region of the prostate may indicate prior prostatectomy or post radiation change. 2. Although decompressed with a Walton catheter, suggestion of abnormal soft tissue density in the region of the bladder trigone with diffuse bladder wall thickening. Given the clinical history of prostate cancer, this could represent recurrent disease. The presence of new associated inflammation is concerning for cystitis. Correlate with urinalysis. 3. Bilateral hydroureteronephrosis, slightly worsening on the left, with obstruction at the bladder trigone. 4. Chronic right renal atrophy. 5. Stable appearance of the sclerotic metastatic osseous lesion in the lower sacrum. No new osseous lesions. No lymphadenopathy. 6. New bronchial wall thickening in the right lower lobe suggest bronchitis/bronchiolitis. Electronically signed by: Keyshawn Lofton M.D. 08/23/2016 11:51 AM Dictated Date/Time: 08/23/2016 11:37 AM (RENAL)RETROPERITON COMP HISTORY:70 yearsMaleacute urinary retention COMPARISON: CT 05/27/2016. TECHNIQUE: Multiple real-time sonographic images of the kidneys and urinary bladder were obtained assessing grayscale appearance and color flow. FINDINGS: Right kidney again demonstrates multifocal parenchymal thinning and atrophy measuring 11.6 cm in length. Severe right-sided hydronephrosis redemonstrated. No obstructing stone or mass is seen in the right on these images. Left kidney renal parenchyma appears unremarkable measuring 13.7 cm in length. Moderate left hydronephrosis is redemonstrated without change from comparison. Echogenic soft tissue lesion at the base of the urinary bladder is seen, 4.6 x 2.2 cm. No ureteral jets are definitively seen. Urinary bladder volume is approximately 550 mL. The catheter balloon was not visualized per plant senior manager. I IMPRESSION: 1. Stable appearing severe right and moderate left hydroureteronephrosis. 2. Unchanged multifocal parenchymal thinning and scarring of the right kidney. 3. Apparent soft tissue mass involves the base of the urinary bladder. This could be correlated with cystoscopy. The above report was generated using voice recognition software. It may contain grammatical, syntax or spelling errors. Electronically signed by: Jose Antonio Nolan M.D. 08/21/2016 8:07 AM Dictated Date/Time: 08/21/2016 8:01 AM CHEST ONE VIEW PORTABLE CLINICAL HISTORY: Weakness. COMPARISON STUDY: Chest radiograph December 05, 2014. FINDINGS: There is no pneumothorax or pleural effusion. Mild elevation of the right hemidiaphragm is unchanged. There is no evidence of pulmonary edema. Cardiomediastinal silhouette is stable. IMPRESSION: No acute cardiopulmonary findings. Electronically signed by: Americo Woodard M.D. 08/20/2016 5:52 PM Dictated Date/Time: 08/20/2016 5:52 PM Consultations: Urology Nephrology cardiology Medication Reconciliation Continued Medications: Acetaminophen Tab (Tylenol) 325 Mg Tab 650 MG PO PRN, TAB Amlodipine (Norvasc) 10 Mg Tab 10 MG PO DAILY, TAB Atorvastatin (Lipitor) 20 Mg Tab 20 MG PO HS, TAB Denosumab (Xgeva) 120 Mg/1.7 Ml Inj 1 DOSE INJ [id number] Leuprolide Acetate (6 Month) (Lupron Depot) 45 Mg Inj 1 DOSE INJ [id number] Lisinopril (Zestril) 40 Mg Tab 40 MG PO QAM, TAB Metoprolol Succinate (Toprol Xl) 200 Mg Tab 200 MG PO QAM, #90 Omeprazole (Prilosec) 20 Mg Capcr 10 MG PO DAILY, CAP Sertraline (Zoloft) 100 Mg Tab 100 MG PO QAM, TAB Zolpidem Tartrate (Zolpidem Tartrate) 10 Mg Tab 10 MG PO HS for 30 Days, #30 TAB Discontinued Medications: Metformin HCl (Metformin HCl) 500 Mg Tab 1 TAB PO BIDM, #180 Admission Information HPI (per Admitting provider): 70 yo diabetic man presents as a transfer from the clinic for new onset atrial fibrillation. Two weeks ago he thought he saw some blood in his urine and went to the clinic for evaluation. He was empirically placed on Bactrim for 4 days until the results came back without infection at which time he stopped the Bactrim. Around this time he reports a couple days of diarrhea. He then states that about 4 days ago he began to feel general malaise and nausea with a decreased appetite. Some diarrhea was reported that was non-bloody, but he denies any vomiting. He has had urinary retention in the past in the setting of prostate cancer with known mets to the bladder. He has had a TURP but no prostatectomy; he is treated with Lupron injections. He reports some increased frequency of urination over the past two weeks and admits to incomplete voiding. Denies polyurina, hematuria, dysuria, pelvic or abdominal or flank pain and no fevers or chills. In the ER a Walton was placed draining 1L of yellow fluid, however, following this he developed gross hematuria that was villeda red. The heparin, which had been started for new onset atrial fibrillation, was stopped and a Urology consult was placed. The patient reports that he arrived home from work 4 days ago and felt a fluttering in his chest. He reports ever since starting Norvasc and Metformin in Feb/Mar 2016 timeframe, he has noticed this fluttering in his chest which will awaken him from sleep on occasion. It was not associated with other symptoms and never occurred during the day. He currently denies any chest pain or shortness of breath and reports his diarrhea has been mild with only a couple of episodes in the last 24 hours. Physical Exam (per Admitting): GEN: WNWD, in no acute distress, alert and appropriate HEENT: NC/AT, PERRL, normal sclerae/conjunctivae, MMM, pharynx non-acute, no LAD , trachea midline, no JVD CARDIO: irreg rhythm, S1/2 heard without m/g/r LUNGS: CTA bilaterally, no crackles, rales or wheezes, good diaphragmatic excursion ABD: soft, non-tender, non-distended, no rebound or guarding, +BS EXTREMITY: RP and DP palpable 2+ bilat, no LE swelling or edema, extremities are warm and well-perfused NEURO: CN 2-12 grossly intact, sensation intact throughout, (reflexes) BR 2/4 bilat, knee 2/4 bilat MUSC: 5/5 strength throughout, no gross focal deficits SKIN: warm and dry Hospital Course New Onset Atrial fibrillation Diffuse T inversion -not a candidate for any intervention due to hematuria Duration unknown Rate is btw 80 to 100's Not on anticoagulant due to Hematuria Continue BB for rate control Cardiology consult-appreciated case discussed with cardiology At this time no anticoagulation until stable with urology Ok to start on aspirin 81 mg after follow up with urology in 1 week Pt understands the risk: No anticoagulant put him at risk of stroke Anticoagulant put him at risk of bleeding Follow up with cardiology as an outpatient btw 3-4 weeks Asymptomatic ECHO showed * Atrial fibrillation with mildly elevated ventricular rate was present during the echocardiogram. * There is mild concentric left ventricular hypertrophy. * The left ventricular wall motion is normal. * Left ventricular systolic function is low normal. * The LV Ejection Fraction = 50-55%. * The left atrium is moderately dilated. * The right atrium is mildly dilated. * Aortic valve sclerosis mild, without significant aortic valvular stenosis. * Mild aortic regurgitation. * There is mild mitral regurgitation. * There is trace tricuspid regurgitation. * Borderline to mild pulmonary hypertension is present. * The pulmonary artery systolic pressure is calculated to be 40 mm Hg. Acute Kidney Injury CT Abd/ pelvis showed Bilateral hydroureteronephrosis, slightly worsening on the left, with obstruction at the bladder trigone. Renal u/s: showed severe right and moderate left hydroureteronephrosis and apparent soft tissue mass involves the base of the urinary bladder. Creatine peak to 3.9, has been trending down 2.4 today Continue monitor BMP avoid nephrotoxic agent Nephrology on board and ok to be discharged home from nephro standpoint check BMP within 1 week Bilateral hydroureteronephrosis Gross hematuria H/O Prostate Cancer-treated with Lupron as outpatient Urinary retention-Walton in place Gross hematuria resolved Urology consulted. Holding heparin until further evaluation by Urology. Urology recommended to discharge with walton Urine Culture - No growth Elevated PSA, need workup to r/o recurrence prostate cancer Ok from urology standpoint to discharge home with the walton Plan to remove Walton when creatine below 2 creatine 2.4 today BMP in 1 week Hypertension BP elevated, likely situational. Continuje holding Lisinopril due to EDDIE Cont Norvasc 10, Toprol XL 200mg. Will Add low dose lopressor prn for SBP above 170 stable DMII Controlled Hba1c 6.5 Metformin on hold Cont Lantus/ISS per algorithm Depression/Anxiety Cont sertraline 100. Stable DVT px. heparin drip held 2/2 significant hematuria. on scds CODE status Full Code Dispo Continue PT/OT Will discharge home today Total time spent on discharge = 35 minutes This includes examination of the patient, discharge planning, medication reconciliation, and communication with other providers. Discharge Instructions Discharge Instructions Date of Service Aug 29, 2016. Admission Reason for Admission: Atrial Fibrillation, New Onset Discharge Discharge Diagnosis / Problem: New Onset AFib, Bilateral hydroureteronephrosis , Acute kidney injury, HTN Discharge Goals Goal(s): Decrease discomfort, Improve function, Improve disease control Activity Recommendations Activity Limitations: resume your previous activity (as tolerated) . Instructions / Follow-Up Instructions / Follow-Up Discharge home with Walton Follow up appointment with Dr. Lanier (Dr. Tompkins's partner) on 09/02 @ 11:05 AM Follow up with Urology in 1 week ( please call to schedule appointment) Follow up with Nephrology Dr. Jackson (Dr. Jackson's office will call you for the appointment) Follow up with cardiology Dr. Schafer on Sep 18 @ 3:05 pm Keep your follow up appointment with the oncology for tomorrow (08/30) Check BMP on Friday (lab order given to patient) Continue Walton cath until discontinue by urologist Hold Lisinopril and Metformin for now, until OK by your physician to restart them. baby aspirin after seeing the urologist (if blood in the urine resolves and if ok by urologist to start it). Monitor blood pressure and bring blood pressure log to your next follow up appointment. Follow a healthy diet, limited concentrate sugar and low cab diet Current Hospital Diet Patient's current hospital diet: AHA Diet (Heart Healthy), Diabetes Type 2 Diet Discharge Diet Recommended Diet: AHA Diet (Heart Healthy) Pending Studies Studies pending at discharge: no Laboratory Results Hemoglobin A1c Test 08/21/16 05:12 Range/Units Estimated Average Glucose 140 mg/dl Hemoglobin A1c 6.5 H 4.5-5.6 % Lipid Panel Test 08/21/16 05:12 Range/Units Triglycerides Level 208 H 0-150 mg/dl Cholesterol Level 101 0-200 mg/dl HDL Cholesterol 39 mg/dl Cholesterol/HDL Ratio 2.6 LDL Cholesterol, Calculated 20 mg/dl Medical Emergencies . Who to Call and When: Medical Emergencies: If at any time you feel your situation is an emergency, please call 911 immediately. . Non-Emergent Contact Non-Emergency issues call your: Primary Care Provider Call Non-Emergent contact if: you have a fever, you have any medication questions . . "Provider Documentation" section prepared by Maki Luo. . VTE Core Measure Inpt VTE Proph given/why not?: SCD's, Contraindicated (Hematuria) Additional Copies To Javi Lanier M.D. Callahan, Mary F., M.D.
== END 2016-08-29 14:30 | disposition home or self-care (01) | DRG 309 ==
LOC: EDBD 17:07 → C.EDC 17:10 → C.2T 20:28 → OBSVTOIN 20:40 → ENRESERV 21:23
PROVIDERS: ADMIT Hospitalist; ATTEND Internal Medicine
DX: I48.91 Unspecified atrial fibrillation (principal); N17.9 Acute kidney failure, unspecified; N13.30 Unspecified hydronephrosis; C79.51 Secondary malignant neoplasm of bone; E11.9 Type 2 diabetes mellitus without complications; R31.0 Gross hematuria; K58.9 Irritable bowel syndrome, unspecified; M48.00 Spinal stenosis, site unspecified; R32 Unspecified urinary incontinence; R33.9 Retention of urine, unspecified; C61 Malignant neoplasm of prostate; I08.3 Combined rheumatic disorders of mitral, aortic and tricuspid valves; E66.9 Obesity, unspecified; Z68.38 Body mass index [BMI] 38.0-38.9, adult; I10 Essential (primary) hypertension; F41.9 Anxiety disorder, unspecified; F32.9 Major depressive disorder, single episode, unspecified; E87.6 Hypokalemia; N26.1 Atrophy of kidney (terminal); Z87.891 Personal history of nicotine dependence; Z91.011 Allergy to milk products; Z91.048 Other nonmedicinal substance allergy status; Z79.899 Other long term (current) drug therapy; Z83.3 Family history of diabetes mellitus; Z82.49 Family history of ischemic heart disease and other diseases of the circulatory system; Z83.79 Family history of other diseases of the digestive system; Z84.1 Family history of disorders of kidney and ureter

== ENCOUNTER → 2016-09-17 | Outpatient (CLI) | payer BC ==
[~2016-09-17] MED LIST changes: +AMLO-114 PO; +ATOR-22 PO; -CALCTAB5 PO; -GLC500 PO; -MULT-506 PO; -OXYC1TAB3 PO; +SERT-234 PO; -SERT1TAB92 PO; -TERA1CAP63 PO; +ZOLP10TA6 PO; -ZOLP5TAB6 PO
== END | disposition home or self-care (01) ==
LOC: C.LABSPEC 17:13
PROVIDERS: ATTEND Urology
DX: R33.9 Retention of urine, unspecified (principal); N39.0 Urinary tract infection, site not specified; R32 Unspecified urinary incontinence; R35.0 Frequency of micturition

== ENCOUNTER → 2016-09-23 | Outpatient (CLI) | payer BC ==
--- NOTE | 2016-09-23 18:48 | DIAGNOSTIC IMAGING REPORT ---
BONE SCAN WHOLE BODY CLINICAL HISTORY: Prostate carcinoma COMPARISON STUDY: 08/08/2015 FINDINGS: The patient was injected with 27 mCi of technetium 99m MDP. Three-hour delayed whole body images were acquired. There are persistent foci of increased activity within the wrists, consistent with degenerative/arthritic change. There is persistent prominence of the left renal collecting system. No right renal activity is visualized. There are no foci of increased activity suspicious for skeletal metastasis. IMPRESSION: 1. No evidence of skeletal metastasis. 2. No right renal activity identified Electronically signed by: Mega Walton M.D. 09/23/2016 6:46 PM Dictated Date/Time: 09/23/2016 6:45 PM
== END | disposition home or self-care (01) ==
LOC: C.NUCL 14:41
PROVIDERS: ATTEND Urology
DX: C61 Malignant neoplasm of prostate (principal)

== ENCOUNTER → 2016-10-08 | Outpatient (CLI) | payer BC | END | disposition home or self-care (01) | LOC: C.LABSPEC 11:26 | PROVIDERS: ATTEND Urology | DX: R33.9 Retention of urine, unspecified (principal) ==

== ENCOUNTER → 2017-10-01 | Outpatient (CLI) | payer BC ==
[~2017-10-01] MED LIST changes: +ACET-1693 PO; -ACET325T96 PO; -AMLO-114 PO; +AMLO10TA3 PO; -METO1TAB70 PO; +METO200T31 PO
== END | disposition home or self-care (01) ==
LOC: C.LABSPEC 17:23
PROVIDERS: ATTEND Urology
DX: M81.8 Other osteoporosis without current pathological fracture (principal)

== ENCOUNTER 2022-09-23 23:39 | Inpatient (IN) ==
[2022-09-23] MEDS ORDERED: SODIUM CHLORIDE 0.9% 1000ML 1,000 ML IV SCH (23:45)
[2022-09-23] MEDS ORDERED: FAMOTIDINE 20MG IV PUSH 20 MG/5 ML SYR IV STA (23:52)
[2022-09-23] MEDS ORDERED: ALBUT/IPRATROP 3MG/0.5MG NEB 3 ML VIAL NEB STA (23:52)
[2022-09-23] MEDS ORDERED: ACETAMINOPHEN 1,000 MG/100 ML VIAL IV STA (23:55)
--- NOTE | 2022-09-23 23:55 | Emergency Department Note ---
Impression & Plan Fever, Nausea & vomiting, Generalized weakness, COVID-19, Hypomagnesemia, Atrial fibrillation ED Provider Note ED Provider Note NAME: VONDA GOLDEN AGE:76 SEX: Male : 1945 ARRIVES VIA: EMS INFORMANT: Patient ED PROVIDER(s): Libby Diehl DO CHIEF COMPLAINT: Weakness, nausea and vomiting HPI: This is a 76-year-old male who presents emergency department complaining of weakness, nausea vomiting, and increased trouble breathing. Patient states he has been dealing with weakness for several months now but had gone to physical therapy and felt improved until the last for 5 days he began with increased weakness in his lower extremities again. He states he was fearful he would fall as he had a lot of difficulty walking and getting in and out of bed. He states he also noticed slight increased work of breathing over the last several days. He states he does have a history of asthma and has been using his inhalers at home. He does not wear oxygen at home. He states today around lunchtime he ate a salad and shortly after that began having nausea and vomiting. He denies any coming abdominal pain, diarrhea, black or bloody stools. He denies any hematemesis. He states he is not nauseated at this time. Patient denies any recent travel or known sick contacts. He states other people did eat the same salad he did and did not have any issues. Patient does have a history of prostate cancer and is currently taking an oral maintenance chemotherapy pill. Patient states he did have an accidental mechanical fall approximately 5 to 6 weeks ago and broke 2 ribs. He states those have healed. PAST MEDICAL HISTORY:See Below PAST SURGICAL HISTORY:See Below FAMILY HISTORY:See Below SOCIAL HISTORY:See Below HOME MEDICATIONS:See Below ALLERGIES:See Below VITALS:See Below PHYSICAL EXAMINATION: GENERAL: alert, well appearing, well nourished, no distress, non-toxic EYE EXAM: normal conjunctiva, PERRL and EOM's grossly intact OROPHARYNX: no exudate, no erythema, lips, buccal mucosa, and tongue normal and mucous membranes are moist NECK: supple, no nuchal rigidity, no adenopathy, non-tender LUNGS: Clear to auscultation. Normal chest wall mechanics, no w/r/r HEART: no murmurs, S1 normal and S2 normal ABDOMEN: abdomen soft, non-tender, normo-active bowel sounds, no masses, no rebound or guarding. BACK: Back is symmetrical on inspection and there is no deformity, no midline tenderness, no CVA tenderness. SKIN: no rashes, petechiae, orbruising UPPER EXTREMITIES: upper extremities are grossly normal. FROM, nml pulses b/l. LOWER EXTREMITIES: No pitting edema. FROM, nml pulses b/l. NEURO EXAM: Normal sensorium, cranial nerves II-XII grossly intact, normal speech, no facial droop,nogross weakness of arms, no gross weakness of legs. Gross sensation intact. No ataxia. Vital Signs: reviewed and remarkable Differential Diagnosis: dehydration, CVA, anemia, hypoglycemia, hyponatremia, hypernatremia, urinary tract infection, pneumonia, bronchitis, sepsis, gastroenteritis, ACS, PE, colitis, bowel obstruction, viral syndrome, as well as others were considered MEDICAL DECISION MAKING: This is a 76-year-old male brought into the emergency room by EMS due to concern for increased weakness, increased difficulty breathing, nausea and vomiting. Patient found to be febrile here on arrival however other vital signs stable. He was noted to have increased respiratory rate and increased work of breathing. He was hypoxic for EMS although improved here on 2 L via nasal cannula. Labs drawn and sent, IV established, EKG and CXR performed and interpreted at bedside, and patient placed on telemetry. Patient given 2 DuoNeb treatments here and then placed on BiPAP which did improve his work of breathing and respiratory rate. No obvious pneumonia seen on chest x-ray. Nasal swab positi ve for COVID which likely explains many of his symptoms. Patient noted to be in A-fib on telemetry although does have a history of the same. He is not anticoagulated according to prior significant hematuria per EMR records. Patient noted to have significant hypomagnesemia of 1.4. He did have a leukocytosis of 13 although is on chronic steroids. Patient and partner updated on results. Case discussed with [facility] hospitalist for additional evaluation and management. Consultation(s): 0220: Discussed with Dr. Brownlee, [facility] hospitalist team. ER Treatment Provided: See below 0050: Patient and partner who is now bedside updated. Patient still tachypneic although does report feeling slightly improved after DuoNeb treatment. Patient and partner state his A-fib had began several years ago when he had acute urinary retention. They were not aware that he was in it chronically or flipped in and out. He does follow with Dr. Prajapati of cardiology. 0135: Patient updated on positive COVID. He states he is feeling improved following second nebulizer treatment and initiation of BiPAP therapy. Decreased work of breathing and decreased respiratory rate. Diagnostics Interpreted By Me: -ECG: Atrial fibrillation at 98, normal axis, normal QRS and QTc, nonspecific ST/T wave changes, low voltage -Cardiac Monitoring: An order was placed for continuous cardiac monitoring. The monitor shows a rate of 112 with a.fib rhythm. -Laboratory studies: As stated above and show below. -Imaging studies: X-ray Chest: A single view study of the chest was reviewed and was negative for cardiomegaly, focal infiltrate, effusion, pulmonary edema, or wide mediastinum. Slightly increased interstitial markings bilaterally. Triage Nursing Note Reviewed Prior/Outside Records Reviewed Past Med/Surg History Medical History Androgen-induced osteoporosis Chronic steroid use PROSTATE CANCER Fatigue Hydronephrosis of right kidney Hyperlipidemia IBS (irritable bowel syndrome) Insomnia Resolved Kidney stones Osteoarthritis Prostate cancer (11/03/14) Prostate nodule Psychosis Had hx of depression with psychotic episode - resolved Renal insufficiency Sacral lesion Ureter injury OBSTRUCTION OF RT URETER 2/2 PROSTATE CA Urinary frequency Urinary incontinence Urge incontinence Urinary retention Resolved Urinary tract infection Resolved Surgical History History of cataract surgery 2018 - Bilat History of colonoscopy 2011 (due in 2021) History of prostate biopsy 2014 History of tonsillectomy as a child History of tooth extraction in age 19's S/P TURP 2014 Family History Mother , Passed age 60 of sepsis Gallbladder disease Mental disorder Psychological disorder Father , Passed age 89 of sepsis (infected bladder stones) Congestive heart failure Bladder stones Prostate cancer no treatment needed Brother Heart failure Kidney stones Kidney disease Bladder cancer, Onset Age: 75 Myocardial infarction Grandmother (Paternal) , Passed age 93 of old age Breast cancer, Onset Age: 40 double mastectomy and then did well Sister , Passed age 2 of pneumonia No problems noted. 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 Beliefs That Will Affect Care: None marital status: Current Living Situation: Family Current Living Situation Comment: LIVES W/ OLIVER current occupational status: retired 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 Feels Safe at Home: Yes Childhood Exposure to Second-Hand Smoke: No Diet: diabetic caffeine: Yes (1 cup of coffee/day ) during the past year weight has: remained stable Dental Care, Regularly: No Physical Activity Frequency: Does not Exercise Seatbelt Use: always Sunscreen Use: Yes Assistive Devices: Walker Allergies Allergies Allergy/AdvReac Type Severity Reaction Status Date / Time cat dander Allergy Severe CAN CAUSE Verified 09/24/22 00:30 ASTHMA ATTACK-itchy eyes, congestion milk AdvReac Unknown DIARRHEA-EATS Verified 09/24/22 00:30 DAIRY BUT AVOIDS MILK Home Meds Home Medications Medication Instructions Recorded Confirmed abiraterone 500 mg tablet (Zytiga) 1,000 mg PO QAM 07/13/18 09/24/22 calcium carbonate 500 mg-vitamin 1 tab PO QAM 07/13/18 09/24/22 D3 5 mcg (200 unit) tablet (Calcium 500 + D) prednisone 5 mg tablet 5 mg PO BID 07/13/18 09/24/22 oxycodone 5 mg tablet 5 mg PO Q4H PRN Pain 03/16/20 09/24/22 acetaminophen 500 mg tablet 1,000 mg PO DIRECTED PRN Pain 09/24/22 09/24/22 (Tylenol Extra Strength) denosumab 120 mg/1.7 mL (70 mg/mL) 120 mg subcut DIRECTED 09/24/22 09/24/22 subcutaneous solution (Xgeva) multivitamin with minerals 1 tab PO DAILY 09/24/22 09/24/22 ondansetron 4 mg disintegrating 4 mg PO Q8H PRN NAUSEA/VOMITING 09/24/22 09/24/22 tablet triamcinolone acetonide 0.1 % 1 applic topical DIRECTED 09/24/22 09/24/22 topical cream Previous Rx's Medication Instructions Recorded leuprolide (4 month) 30 mg (4 30 mg IM Q16W #1 ea 07/28/19 month) intramuscular syringe kit (Lupron Depot) sertraline 100 mg tablet 100 mg PO QAM #90 tabs 09/01/19 glimepiride 1 mg tablet 1 mg PO DAILY #90 tabs 05/22/22 metoprolol succinate 200 mg 200 mg PO DAILY #90 tabs 07/15/22 tablet,extended release 24 hr amlodipine 10 mg tablet 10 mg PO QAM #90 tabs 07/18/22 lisinopril 20 mg tablet 20 mg PO DAILY #90 tabs 07/23/22 omeprazole 20 mg delayed 20 mg PO QAM #90 tabs 09/03/22 release,disintegrating tablet atorvastatin 20 mg tablet 20 mg PO QAM #90 tabs 09/18/22 Results & Data (ED) Vital Signs Vital Signs - 24 hr 09/23/22 23:46 09/24/22 00:13 09/24/22 00:13 Temperature 38.5 C H Temperature Source Oral Pulse Rate 108 H 96 H Pulse Rate [Apical] 96 H Pulse Rate from SpO2 Sensor Pulse Rhythm Irregular Pulse Rhythm [Apical] Irregular Respiratory Rate 22 32 H 32 H Respiratory Effort / Characteristics Labored Labored Respiratory Depth Respiratory Pattern Blood Pressure 152/54 H Blood Pressure [Right Arm] 145/71 H Blood Pressure Mean 86 Blood Pressure Mean [Right Arm] 95 Pulse Oximetry 96 96 96 Oxygen Delivery Method Nasal Cannula Nasal Cannula Nasal Cannula Oxygen Flow Rate 2 2 2 Fraction of Inspired Oxygen Sepsis Recent Fever Within 48 Hours Yes Sepsis New/Unexplained Change in Mental Status No Sepsis Action Taken by Nursing Physician Notified 09/24/22 00:59 09/24/22 01:03 09/23/22 23:44 Temperature Temperature Source Pulse Rate 105 H 112 H Pulse Rate [Apical] 104 H Pulse Rate from SpO2 Sensor Pulse Rhythm Pulse Rhythm [Apical] Respiratory Rate 24 24 Respiratory Effort / Characteristics Spontaneous Non-Labored Spontaneous Respiratory Depth Normal Respiratory Pattern Regular Blood Pressure Blood Pressure [Right Arm] Blood Pressure Mean Blood Pressure Mean [Right Arm] Pulse Oximetry 96 98 Oxygen Delivery Method BiPAP Oxygen Flow Rate Fraction of Inspired Oxygen 40 Sepsis Recent Fever Within 48 Hours Sepsis New/Unexplained Change in Mental Status Sepsis Action Taken by Nursing 09/23/22 23:44 09/24/22 00:30 09/24/22 01:30 Temperature Temperature Source Pulse Rate 115 H 102 H Pulse Rate [Apical] Pulse Rate from SpO2 Sensor 118 H 100 H Pulse Rhythm Pulse Rhythm [Apical] Respiratory Rate 27 H 22 Respiratory Effort / Characteristics Respiratory Depth Respiratory Pattern Blood Pressure 152/54 H 127/86 111/80 Blood Pressure [Right Arm] Blood Pressure Mean 86 99 90 Blood Pressure Mean [Right Arm] Pulse Oximetry 95 85 L Oxygen Delivery Method Oxygen Flow Rate Fraction of Inspired Oxygen Sepsis Recent Fever Within 48 Hours Sepsis New/Unexplained Change in Mental Status Sepsis Action Taken by Nursing 09/24/22 02:00 09/24/22 02:00 09/24/22 02:30 Temperature Temperature Source Pulse Rate 90 92 H Pulse Rate [Apical] Pulse Rate from SpO2 Sensor 103 H Pulse Rhythm Pulse Rhythm [Apical] Respiratory Rate 23 28 H Respiratory Effort / Characteristics Respiratory Depth Respiratory Pattern Blood Pressure 94/58 L 94/58 L 108/60 Blood Pressure [Right Arm] Blood Pressure Mean 70 70 76 Blood Pressure Mean [Right Arm] Pulse Oximetry 95 Oxygen Delivery Method Oxygen Flow Rate Fraction of Inspired Oxygen Sepsis Recent Fever Within 48 Hours Sepsis New/Unexplained Change in Mental Status Sepsis Action Taken by Nursing Laboratory Data 09/24/22 00:10 09/24/22 00:10 Lab Results 09/23/22 09/24/22 09/24/22 Range/Units Unknown 00:10 00:10 WBC 13.31 H (4.8-10.8) K/ul RBC 4.18 L (4.70-6.10) M/uL Hgb 13.6 L (14.0-18.0) g/dl Hct 40.2 L (42.0-52.0) % MCV 96.2 (80.0-100.0) fL MCH 32.5 (25.0-34.0) pg MCHC 33.8 (32.0-36.0) g/dL RDW Std Deviation 47.5 H (36.4-46.3) fL RDW Coeff of Tramaine 13.4 (11.5-14.5) % Plt Count 120 L (130-400) K/uL MPV 10.0 (9.4-12.4) fL Immature Gran % (Auto) 0.9 % Neut % (Auto) 88.4 % Lymph % (Auto) 4.7 % [place] % (Auto) 5.3 % Eos % (Auto) 0.5 % Baso % (Auto) 0.2 % Neut # (Auto) 11.78 H (1.40-6.50) K/uL Lymph # (Auto) 0.62 L (1.2-3.4) K/uL [place] # (Auto) 0.70 H (0.11-0.59) K/uL Eos # (Auto) 0.06 (0-0.50) K/uL Baso # (Auto) 0.03 (0-0.2) K/uL Immature Gran # (Auto) 0.12 (0.01-0.20) K/uL Sodium 137 (136-145) mmol/L Potassium 4.3 (3.5-5.1) mmol/L Chloride 98 (98-107) mmol/L Carbon Dioxide 28 (21-32) mmol/L Anion Gap 11 (3-11) BUN 17 (6-23) mg/dl Creatinine 1.00 (0.6-1.4) mg/dl Est Cr Clr Drug Dosing 78.0 ml/min Est GFR ( Amer) 83.8 ml/min Est GFR (Non-Af Amer) 72.3 ml/min BUN/Creatinine Ratio 17.0 (10-20) Glucose 220 H (70-99(Fasting)) mg/dl Lactate (0.4-2.0) mmol/L Calcium 9.1 (8.6-10.3) mg/dl Magnesium 1.4 L (1.7-2.4) mg/dl Total Bilirubin 0.9 (0.2-1.0) mg/dl Direct Bilirubin 0.2 (0-0.2) mg/dl AST 16 (13-39) U/L ALT 14 (7-52) U/L Alkaline Phosphatase 44 (34-104) U/L Troponin I High Sens 15.7 (0-20) pg/ml Total Protein 6.5 (6.0-8.3) gm/dl Albumin 4.0 (3.4-5.0) gm/dl Procalcitonin (0-0.5) ng/ml Urine Color Yellow Urine Appearance Clear (Clear) Urine pH 5.5 (4.5-7.5) Ur Specific [place] 1.013 (1.000-1.030) Urine Protein Negative (Negative) Urine Glucose (UA) Negative (Negative) Urine Ketones Trace H (Negative) Urine Blood Negative (Negative) Urine Nitrite Negative (Negative) Urine Bilirubin Negative (Negative) Urine Urobilinogen Negative (Negative) Ur Leukocyte Esterase Negative (Negative) Adenovirus (PCR) (NotDetected) B. pertussis DNA (PCR) (NotDetected) B.parapertussis DNA PCR (NotDetected) C. pneumoniae DNA (PCR) (NotDetected) Coronavirus OC43 (PCR) (NotDetected) Coronavirus HKU1 (PCR) (NotDetected) Coronavirus 229E (PCR) (NotDetected) SARS-CoV-2 (PCR) (NotDetected) Coronavirus NL63 (PCR) (NotDetected) Human Metapneumovir PCR (NotDetected) Influenza Type A (PCR) (NotDetected) Influenza Type B (PCR) (NotDetected) M. pneumoniae (PCR) (NotDetected) Parainfluenza 1 (PCR) (NotDetected) Parainfluenza 2 (PCR) (NotDetected) Parainfluenza 3 (PCR) (NotDetected) Parainfluenza 4 (PCR) (NotDetected) RSV (PCR) (NotDetected) Entero/Rhino (PCR) (NotDetected) 09/24/22 09/24/22 09/24/22 Range/Units 00:10 00:10 00:10 WBC (4.8-10.8) K/ul RBC (4.70-6.10) M/uL Hgb (14.0-18.0) g/dl Hct (42.0-52.0) % MCV (80.0-100.0) fL MCH (25.0-34.0) pg MCHC (32.0-36.0) g/dL RDW Std Deviation (36.4-46.3) fL RDW Coeff of Tramaine (11.5-14.5) % Plt Count (130-400) K/uL MPV (9.4-12.4) fL Immature Gran % (Auto) % Neut % (Auto) % Lymph % (Auto) % [place] % (Auto) % Eos % (Auto) % Baso % (Auto) % Neut # (Auto) (1.40-6.50) K/uL Lymph # (Auto) (1.2-3.4) K/uL [place] # (Auto) (0.11-0.59) K/uL Eos # (Auto) (0-0.50) K/uL Baso # (Auto) (0-0.2) K/uL Immature Gran # (Auto) (0.01-0.20) K/uL Sodium (136-145) mmol/L Potassium (3.5-5.1) mmol/L Chloride (98-107) mmol/L Carbon Dioxide (21-32) mmol/L Anion Gap (3-11) BUN (6-23) mg/dl Creatinine (0.6-1.4) mg/dl Est Cr Clr Drug Dosing ml/min Est GFR ( Amer) ml/min Est GFR (Non-Af Amer) ml/min BUN/Creatinine Ratio (10-20) Glucose (70-99(Fasting)) mg/dl Lactate 3.6 H* (0.4-2.0) mmol/L Calcium (8.6-10.3) mg/dl Magnesium (1.7-2.4) mg/dl Total Bilirubin (0.2-1.0) mg/dl Direct Bilirubin (0-0.2) mg/dl AST (13-39) U/L ALT (7-52) U/L Alkaline Phosphatase (34-104) U/L Troponin I High Sens (0-20) pg/ml Total Protein (6.0-8.3) gm/dl Albumin (3.4-5.0) gm/dl Procalcitonin < 0.05 (0-0.5) ng/ml Urine Color Urine Appearance (Clear) Urine pH (4.5-7.5) Ur Specific [place] (1.000-1.030) Urine Protein (Negative) Urine Glucose (UA) (Negative) Urine Ketones (Negative) Urine Blood (Negative) Urine Nitrite (Negative) Urine Bilirubin (Negative) Urine Urobilinogen (Negative) Ur Leukocyte Esterase (Negative) Adenovirus (PCR) Not Detected (NotDetected) B. pertussis DNA (PCR) Not Detected (NotDetected) B.parapertussis DNA PCR Not Detected (NotDetected) C. pneumoniae DNA (PCR) Not Detected (NotDetected) Coronavirus OC43 (PCR) Not Detected (NotDetected) Coronavirus HKU1 (PCR) Not Detected (NotDetected) Coronavirus 229E (PCR) Not Detected (NotDetected) SARS-CoV-2 (PCR) DETECTED A* (NotDetected) Coronavirus NL63 (PCR) Not Detected (NotDetected) Human Metapneumovir PCR Not Detected (NotDetected) Influenza Type A (PCR) Not Detected (NotDetected) Influenza Type B (PCR) Not Detected (NotDetected) M. pneumoniae (PCR) Not Detected (NotDetected) Parainfluenza 1 (PCR) Not Detected (NotDetected) Parainfluenza 2 (PCR) Not Detected (NotDetected) Parainfluenza 3 (PCR) Not Detected (NotDetected) Parainfluenza 4 (PCR) Not Detected (NotDetected) RSV (PCR) Not Detected (NotDetected) Entero/Rhino (PCR) Not Detected (NotDetected) Administered Medications Vancomycin HCl 2,500 mg/ (Sodium Chloride) 550 mls @ 180 mls/hr IV 0530 ONE Stop: 09/24/22 08:33 Last Admin: 09/24/22 05:08 Dose: 180 mls/hr Documented By: SRS Discontinued Medications Albuterol (Albut/Ipratrop 3mg/0.5mg Neb 3 Ml Vial) 3 ml NEB NOW STA; Protocol Stop: 09/23/22 23:53 Last Admin: 09/24/22 00:22 Dose: 3 ml Documented By: EMB Albuterol (Albut/Ipratrop 3mg/0.5mg Neb 3 Ml Vial) 3 ml NEB NOW STA; Protocol Stop: 09/24/22 00:50 Last Admin: 09/24/22 00:59 Dose: 3 ml Documented By: HMR Dexamethasone Sodium Phosphate (DexamethasonePf 10 Mg/Ml Vial) 6 mg IV NOW ONE Stop: 09/24/22 01:32 Last Admin: 09/24/22 01:55 Dose: 6 mg Documented By: TANVI Sodium Chloride (Nss 1000ml) 1,000 mls @ 125 mls/hr IV .Q8H MIESHA Stop: 10/23/22 23:44 Last Admin: 09/24/22 00:23 Dose: 125 mls/hr Documented By: TANVI Famotidine (Pepcid 20mg Iv Push) 20 mg in 5 mls @ 2.5 mls/min IV NOW STA Stop: 09/23/22 23:53 Last Admin: 09/24/22 00:22 Dose: 2.5 mls/min Documented By: TANVI Acetaminophen (Ofirmev) 1,000 mg in 100 mls @ 400 mls/hr IV NOW STA Stop: 09/24/22 00:09 Last Infusion: 09/24/22 00:41 Dose: 0 mls/hr Documented By: Admin: 09/24/22 00:22 Dose: 400 mls/hr Documented By: TANVI Cefepime HCl (Maxipime) 2,000 mg in 20 mls @ 5 mls/min IV NOW STA; Protocol Stop: 09/24/22 00:37 Last Admin: 09/24/22 01:12 Dose: 5 mls/min Documented By: TANVI Magnesium Sulfate/Dextrose (Magnesium Sulfate / D5w) 1 gm in 100 mls @ 100 mls/hr IV Q1H MIESHA Stop: 09/24/22 03:29 Last Admin: 09/24/22 03:01 Dose: 100 mls/hr Documented By: Infusion: 09/24/22 03:01 Dose: 0 mls/hr Documented By: Admin: 09/24/22 01:55 Dose: 100 mls/hr Documented By: TANVI Piperacillin Sod/Tazobactam (Sod 4.5 gm/ Dextrose) 120 mls @ 240 mls/hr IV 0500 ONE; Protocol Stop: 09/24/22 05:29 Last Infusion: 09/24/22 05:38 Dose: 0 mls/hr Documented By: Admin: 09/24/22 05:08 Dose: 240 mls/hr Documented By: GILLIAN Discharge Plan Visit Data Chief Complaint: Vomiting Stated Complaint: Leg Weakness, N/V ED Provider: Libby Diehl Discharge Problem: Fever, Nausea & vomiting, Generalized weakness, COVID-19, Hypomagnesemia, Atrial fibrillation Patient Disposition: Admitted As Inpatient Discharge Instructions Interventions: ED Discharge Assessment Last Done: 09/24/22 04:17
[2022-09-24] MEDS ORDERED: CEFEPIME 2,000 MG/20 ML VIAL IV STA (00:34)
[2022-09-24 00:35] LABS: Basophils # (auto) 0.03 K/uL (0-0.2); Basophils % (auto) 0.2 %; Eosinophils # (auto) 0.06 K/uL (0-0.50); Eosinophils % (auto) 0.5 %; Hematocrit (blood only) 40.2 % (42.0-52.0); Hemoglobin 13.6 g/dl (14.0-18.0); Immature Granulocytes # (auto) 0.12 K/uL (0.01-0.20); Immature Granulocytes % (auto) 0.9 %; Lymphocytes # (auto) 0.62 K/uL (1.2-3.4); Lymphocytes % (auto) 4.7 %; Mean Corpuscular Hemoglobin 32.5 pg (25.0-34.0); Mean Corpuscular Hgb Conc 33.8 g/dL (32.0-36.0); Mean Corpuscular Volume 96.2 fL (80.0-100.0); Monocytes % (auto) 5.3 %; Neutrophils # (auto) 11.78 K/uL (1.40-6.50); Neutrophils % (auto) 88.4 %; Platelet Count 120 K/uL (130-400); RDW Coefficient of Variation 13.4 % (11.5-14.5); RDW Standard Deviation 47.5 fL (36.4-46.3); Red Blood Count 4.18 M/uL (4.70-6.10); White Blood Count 13.31 K/ul (4.8-10.8)
[2022-09-24] MEDS ORDERED: ALBUT/IPRATROP 3MG/0.5MG NEB 3 ML VIAL NEB STA (00:49)
[2022-09-24 00:51] LABS: Bilirubin Direct 0.2 mg/dl (0-0.2); Bilirubin,Total 0.9 mg/dl (0.2-1.0); Calcium 9.1 mg/dl (8.6-10.3); Est GFR (African American) 83.8 ml/min; Est GFR (Non-African American) 72.3 ml/min; Magnesium 1.4 mg/dl (1.7-2.4); Potassium 4.3 mmol/L (3.5-5.1); Total Protein 6.5 gm/dl (6.0-8.3)
[2022-09-24 00:57] LABS: Troponin I High Sensitivity 15.7 pg/ml (0-20)
[2022-09-24 01:16] LABS: Adenovirus PCR Not Detected (NotDetected); Bordetella parapertussis PCR Not Detected (NotDetected); Bordetella pertussis PCR Not Detected (NotDetected); Chlamydia pneumoniae PCR Not Detected (NotDetected); Coronavirus 229E PCR Not Detected (NotDetected); Coronavirus HKU1 PCR Not Detected (NotDetected); Coronavirus NL63 PCR Not Detected (NotDetected); Coronavirus OC43PCR Not Detected (NotDetected); Human Metapneumovirus PCR Not Detected (NotDetected); Influenza A PCR Not Detected (NotDetected); Influenza B PCR Not Detected (NotDetected); Mycoplasma pneumoniae PCR Not Detected (NotDetected); Parainfluenza Virus 1 PCR Not Detected (NotDetected); Parainfluenza Virus 2 PCR Not Detected (NotDetected); Parainfluenza Virus 3 PCR Not Detected (NotDetected); Parainfluenza Virus 4 PCR Not Detected (NotDetected); Respiratory Syncytial VirusPCR Not Detected (NotDetected); Rhinovirus/Enterovirus PCR Not Detected (NotDetected)
[2022-09-24 01:20] LABS: Coronavirus CoV-2 (COVID19)PCR DETECTED (NotDetected)
[2022-09-24] MEDS ORDERED: dexAMETHasone**PF** 10 MG/ML VIAL IV ONE (01:31)
[2022-09-24] MEDS: MAGNESIUM SULFATE / D5W 1 GM/100 ML BAG IV SCH ×2 (01:55→03:01)
--- NOTE | 2022-09-24 02:55 | History & Physical Report ---
Date of Service September 24, 2022 Assessment & Plan (1) COVID-19: (2) Hypomagnesemia: (3) Generalized weakness: (4) Nausea & vomiting: (5) Fever: (6) HTN (hypertension): (7) Anxiety: (8) Prostate cancer: (9) Depression: (10) DMII (diabetes mellitus, type 2): (11) Atrial fibrillation: (12) Hypercholesterolemia: (13) Prostate cancer metastatic to bone: (14) Lymphedema of both lower extremities: (15) Cellulitis of right lower extremity: Plan Acute respiratory failure with hypoxia/likely undiagnosed sleep apnea/COVID-19 infection/aspiration pneumonitis- Patient did have worsening symptoms after he vomited today, however, there is probably some component of COVID-19 infection causing his hypoxia as well, along with obesity hypoventilation syndrome Continue BiPAP for now, titrate downward to mask then nasal cannula with target pulse ox 90-92% Received dexamethasone 6 mg IV from the ED, continue dexamethasone 4 mg IV every 8 hours Received DuoNebs in the ED. Placed on albuterol HFA 2 puffs 4 times daily, every 2 hours as needed Received cefepime 2 g IV in the ED. Placed on Zosyn 4.5 g IV every 8 hours Right lower extremity cellulitis/chronic lymphedema/chronic venous stasis dermatitis- Mechanism is probably vacuolization rupture and secondary cellulitis Patient vancomycin IV per pharmacokinetic monitoring and Zosyn IV as noted above Consult wound care Hypomagnesemia- Magnesium 1.4 in the ED, received 2 g of mag sulfate IV, recheck laboratories in a.m. Atrial fibrillation/hypertension- Continue amlodipine, lisinopril, metoprolol succinate Diabetes mellitus- Hold glimepiride Placed on Accu-Cheks with NovoLog SSI History of Present Illness Chief Complaint: The patient presents to the emergency department with complaint of generalized weakness, nausea, vomiting and increased shortness of breath over the past several months, which had briefly improved at physical therapy, but is again worsened over the past 5 days with worsening lower extremity weakness. He is also noted some worsening of his right lower extremity edema and redness Primary Care Provider: Kings Rios DO The patient is a 76-year-old male with a past medical history including hypertension, anxiety, diabetes mellitus type 2, depression, atrial fibrillation, hypercholesterolemia, prostate cancer metastatic to bone, bila teral lower extremity lymphedema, stasis dermatitis of both legs and lumbar spinal stenosis. Patient presents to the emergency department with symptoms as noted above. Due to hypoxia, he did have COVID-19 testing performed in the emergency department which was positive. It is unclear by his history whether his symptoms of difficulty breathing he can after his vomiting episodes or with the breathing was more of a difficulty prior to that Allergies Allergy/AdvReac Type Severity Reaction Status Date / Time cat dander Allergy Severe CAN CAUSE Verified 09/24/22 00:30 ASTHMA ATTACK-itchy eyes, congestion milk AdvReac Unknown DIARRHEA-EATS Verified 09/24/22 00:30 DAIRY BUT AVOIDS MILK Home Medications Medication Instructions Recorded Confirmed Type abiraterone 500 mg tablet (Zytiga) 1,000 mg PO QAM 07/13/18 09/24/22 History calcium carbonate 500 mg-vitamin 1 tab PO QAM 07/13/18 09/24/22 History D3 5 mcg (200 unit) tablet (Calcium 500 + D) prednisone 5 mg tablet 5 mg PO BID 07/13/18 09/24/22 History leuprolide (4 month) 30 mg (4 30 mg IM Q16W #1 ea 07/28/19 09/24/22 Rx month) intramuscular syringe kit (Lupron Depot) sertraline 100 mg tablet 100 mg PO QAM #90 tabs 09/01/19 09/24/22 Rx oxycodone 5 mg tablet 5 mg PO Q4H PRN Pain 03/16/20 09/24/22 History glimepiride 1 mg tablet 1 mg PO DAILY #90 tabs 05/22/22 09/24/22 Rx metoprolol succinate 200 mg 200 mg PO DAILY #90 tabs 07/15/22 09/24/22 Rx tablet,extended release 24 hr amlodipine 10 mg tablet 10 mg PO QAM #90 tabs 07/18/22 09/24/22 Rx lisinopril 20 mg tablet 20 mg PO DAILY #90 tabs 07/23/22 09/24/22 Rx omeprazole 20 mg delayed 20 mg PO QAM #90 tabs 09/03/22 09/24/22 Rx release,disintegrating tablet atorvastatin 20 mg tablet 20 mg PO QAM #90 tabs 09/18/22 09/24/22 Rx acetaminophen 500 mg tablet 1,000 mg PO DIRECTED PRN Pain 09/24/22 09/24/22 History (Tylenol Extra Strength) denosumab 120 mg/1.7 mL (70 mg/mL) 120 mg subcut DIRECTED 09/24/22 09/24/22 History subcutaneous solution (Xgeva) multivitamin with minerals 1 tab PO DAILY 09/24/22 09/24/22 History ondansetron 4 mg disintegrating 4 mg PO Q8H PRN NAUSEA/VOMITING 09/24/22 09/24/22 History tablet triamcinolone acetonide 0.1 % 1 applic topical DIRECTED 09/24/22 09/24/22 History topical cream Past Med/Surg History Medical History Androgen-induced osteoporosis Chronic steroid use PROSTATE CANCER Fatigue Hydronephrosis of right kidney Hyperlipidemia IBS (irritable bowel syndrome) Insomnia Resolved Kidney stones Osteoarthritis Prostate cancer (11/03/14) Prostate nodule Psychosis Had hx of depression with psychotic episode - resolved Renal insufficiency Sacral lesion Ureter injury OBSTRUCTION OF RT URETER 2/2 PROSTATE CA Urinary frequency Urinary incontinence Urge incontinence Urinary retention Resolved Urinary tract infection Resolved Surgical History History of cataract surgery 2018 - Bilat History of colonoscopy 2011 (due in 2021) History of prostate biopsy 2014 History of tonsillectomy as a child History of tooth extraction in age 19's S/P TURP 2014 Family History Mother , Passed age 60 of sepsis Gallbladder disease Mental disorder Psychological disorder Father , Passed age 89 of sepsis (infected bladder stones) Congestive heart failure Bladder stones Prostate cancer no treatment needed Brother Heart failure Kidney stones Kidney disease Bladder cancer, Onset Age: 75 Myocardial infarction Grandmother (Paternal) , Passed age 93 of old age Breast cancer, Onset Age: 40 double mastectomy and then did well Sister , Passed age 2 of pneumonia No problems noted. Other Has no children Denies family history of Colon cancer Ovarian cancer Social History Smoking Status: Former smoker Tobacco Type: Cigarettes Age Started Using Tobacco: 20; Age Quit Using Tobacco: 39; packs per day: 0.5; Cigarettes Per Day: 10; Second Hand Exposure: No; Do You Dip or Chew Tobacco: No; Hx Alcohol Use: No Hx Substance Use: No Preferred Language: Maltese Communication Ability: Effective Communication Tools: Other Visual Impairment: Limited Hearing Ability: Normal Legal Support Assistant Required: No Beliefs That Will Affect Care: None marital status: Current Living Situation: Spouse Current Living Situation Comment: LIVES W/ OLIVER current occupational status: retired 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 Feels Safe at Home: Yes Childhood Exposure to Second-Hand Smoke: No Diet: diabetic caffeine: Yes (1 cup of coffee/day ) during the past year weight has: remained stable Dental Care, Regularly: No Physical Activity Frequency: Does not Exercise Seatbelt Use: always Sunscreen Use: Yes Assistive Devices: Glasses and Walker Review of Systems Review of Systems: The patient denies chest pain, palpitations, sore throat, fevers, chills, sweats, diarrhea , constipation, abdominal pain, pelvic pain, blood in urine or stool, dysuria, urinary frequency or urgency, lightheadedness, dizziness, headache, memory loss, loss of consciousness, rash, abnormal bruising or bleeding, imbalance, focal or generalized weakness, numbness or tingling in arms, generalized arthralgias or myalgias, or night sweats. The review of systems is otherwise negative other than for that already noted above, and at least 10 systems have been reviewed. Physical Exam Physical Exam: The patient is awake, alert and oriented 3, normocephalic and atraumatic, lying in bed, BiPAP in place and in mild distress. HEENT--PERRL, EOMI, mucous membranes and oropharynx dry. Neck--supple. No JVD. No bruits. Thyroid normal, trachea midline, no adenopathy. Heart--normal S1 and S2. No murmurs, rubs or gallops. Lungs--few coarse breath sounds bilaterally., Mild respiratory distress, no accessory muscle use. Abdomen--normal bowel sounds and soft. Nontender. Nondistended. Morbidly obese Extremities--no cyanosis or clubbing. Right lower extremity with mild to moderate erythema, vacuolization, some open abrasions. Left lower extremity with mild edema and vacuoles Dermatologic--see above Neurologic--cranial nerves II through XII grossly intact. Rheumatologic--limited exam Psychiatric--normal affect. Results & Data Results & Data Vital Signs (Past 12 Hours) Vital Signs Temp Pulse Pulse Resp BP BP Pulse Ox 09/23/22 23:44 112 H 09/24/22 01:03 105 H 24 98 09/24/22 00:59 104 H 24 96 09/24/22 00:13 96 H 32 H 145/71 H 96 09/24/22 00:13 96 H 32 H 96 09/23/22 23:46 38.5 C H 108 H 22 152/54 H 96 O2 Del Method O2 Flow Rate FiO2 09/23/22 23:44 09/24/22 01:03 40 09/24/22 00:59 BiPAP 09/24/22 00:13 Nasal Cannula 2 09/24/22 00:13 Nasal Cannula 2 09/23/22 23:46 Nasal Cannula 2 Laboratory Results Laboratory Results WBC 13.31 K/ul (4.8-10.8) H 09/24/22 00:10 RBC 4.18 M/uL (4.70-6.10) L 09/24/22 00:10 Hgb 13.6 g/dl (14.0-18.0) L 09/24/22 00:10 Hct 40.2 % (42.0-52.0) L 09/24/22 00:10 MCV 96.2 fL (80.0-100.0) 09/24/22 00:10 MCH 32.5 pg (25.0-34.0) 09/24/22 00:10 MCHC 33.8 g/dL (32.0-36.0) 09/24/22 00:10 RDW Std Deviation 47.5 fL (36.4-46.3) H 09/24/22 00:10 RDW Coeff of Tramaine 13.4 % (11.5-14.5) 09/24/22 00:10 Plt Count 120 K/uL (130-400) L 09/24/22 00:10 MPV 10.0 fL (9.4-12.4) 09/24/22 00:10 Immature Gran % (Auto) 0.9 % 09/24/22 00:10 Neut % (Auto) 88.4 % 09/24/22 00:10 Lymph % (Auto) 4.7 % 09/24/22 00:10 Bent % (Auto) 5.3 % 09/24/22 00:10 Eos % (Auto) 0.5 % 09/24/22 00:10 Baso % (Auto) 0.2 % 09/24/22 00:10 Neut # (Auto) 11.78 K/uL (1.40-6.50) H 09/24/22 00:10 Lymph # (Auto) 0.62 K/uL (1.2-3.4) L 09/24/22 00:10 Bent # (Auto) 0.70 K/uL (0.11-0.59) H 09/24/22 00:10 Eos # (Auto) 0.06 K/uL (0-0.50) 09/24/22 00:10 Baso # (Auto) 0.03 K/uL (0-0.2) 09/24/22 00:10 Immature Gran # (Auto) 0.12 K/uL (0.01-0.20) 09/24/22 00:10 Sodium 137 mmol/L (136-145) 09/24/22 00:10 Potassium 4.3 mmol/L (3.5-5.1) 09/24/22 00:10 Chloride 98 mmol/L (98-107) 09/24/22 00:10 Carbon Dioxide 28 mmol/L (21-32) 09/24/22 00:10 Anion Gap 11 (3-11) 09/24/22 00:10 BUN 17 mg/dl (6-23) 09/24/22 00:10 Creatinine 1.00 mg/dl (0.6-1.4) 09/24/22 00:10 Est Cr Clr Drug Dosing 78.0 ml/min 09/24/22 00:10 Est GFR ( Amer) 83.8 ml/min 09/24/22 00:10 Est GFR (Non-Af Amer) 72.3 ml/min 09/24/22 00:10 BUN/Creatinine Ratio 17.0 (10-20) 09/24/22 00:10 Glucose 220 mg/dl (70-99(Fasting)) H 09/24/22 00:10 Lactate 3.5 mmol/L (0.4-2.0) H* 09/24/22 03:32 Calcium 9.1 mg/dl (8.6-10.3) 09/24/22 00:10 Magnesium 1.4 mg/dl (1.7-2.4) L 09/24/22 00:10 Total Bilirubin 0.9 mg/dl (0.2-1.0) 09/24/22 00:10 Direct Bilirubin 0.2 mg/dl (0-0.2) 09/24/22 00:10 AST 16 U/L (13-39) 09/24/22 00:10 ALT 14 U/L (7-52) 09/24/22 00:10 Alkaline Phosphatase 44 U/L (34-104) 09/24/22 00:10 Troponin I High Sens 15.7 pg/ml (0-20) 09/24/22 00:10 Total Protein 6.5 gm/dl (6.0-8.3) 09/24/22 00:10 Albumin 4.0 gm/dl (3.4-5.0) 09/24/22 00:10 Procalcitonin < 0.05 ng/ml (0-0.5) 09/24/22 00:10 Adenovirus (PCR) Not Detected (NotDetected) 09/24/22 00:10 B. pertussis DNA (PCR) Not Detected (NotDetected) 09/24/22 00:10 B.parapertussis DNA PCR Not Detected (NotDetected) 09/24/22 00:10 C. pneumoniae DNA (PCR) Not Detected (NotDetected) 09/24/22 00:10 Coronavirus OC43 (PCR) Not Detected (NotDetected) 09/24/22 00:10 Coronavirus HKU1 (PCR) Not Detected (NotDetected) 09/24/22 00:10 Coronavirus 229E (PCR) Not Detected (NotDetected) 09/24/22 00:10 SARS-CoV-2 (PCR) DETECTED (NotDetected) A* 09/24/22 00:10 Coronavirus NL63 (PCR) Not Detected (NotDetected) 09/24/22 00:10 Human Metapneumovir PCR Not Detected (NotDetected) 09/24/22 00:10 Influenza Type A (PCR) Not Detected (NotDetected) 09/24/22 00:10 Influenza Type B (PCR) Not Detected (NotDetected) 09/24/22 00:10 M. pneumoniae (PCR) Not Detected (NotDetected) 09/24/22 00:10 Parainfluenza 1 (PCR) Not Detected (NotDetected) 09/24/22 00:10 Parainfluenza 2 (PCR) Not Detected (NotDetected) 09/24/22 00:10 Parainfluenza 3 (PCR) Not Detected (NotDetected) 09/24/22 00:10 Parainfluenza 4 (PCR) Not Detected (NotDetected) 09/24/22 00:10 RSV (PCR) Not Detected (NotDetected) 09/24/22 00:10 Entero/Rhino (PCR) Not Detected (NotDetected) 09/24/22 00:10 Code Status & VTE Plan Code Status Full code VTE Prophylaxis Plan VTE Prophylaxis will be ordered: Yes PG Care Time/CCT Total # of Minutes Spent Total Time Spent with Patient: Total time spent is greater than 50% in coordination of care (as documented) at patient's floor/unit and/or counseling patient: Coding Level of Care Code 98104 INT INP/OBS CARE 3/75MIN Diagnoses COVID-19 U07.1 Hypomagnesemia E83.42 Generalized weakness R53.1 Nausea & vomiting R11.2 Fever R50.9 HTN (hypertension) I10 Anxiety F41.9 Prostate cancer C61 Depression F32.9 DMII (diabetes mellitus, type 2) E11.9 Atrial fibrillation I48.91 Hypercholesterolemia E78.00 Prostate cancer metastatic to bone C61; C79.51 Lymphedema of both lower extremities I89.0 Cellulitis of right lower extremity L03.115
[2022-09-24] MEDS ORDERED: VANCOMYCIN CONSULT ACTIVE PRN (04:33)
[2022-09-24] MEDS ORDERED: CARBOHYDRATES FOR HYPOGLYCEMIA PO PRN (04:33)
[2022-09-24] MEDS ORDERED: ONDANSETRON INJ 2 MG/ML 2 ML VIAL IV PRN (04:33)
[2022-09-24] MEDS ORDERED: GLUCOSE 40% GEL 15 GM TUBE PO PRN (04:33)
[2022-09-24] MEDS ORDERED: DEXTROSE 50% 50 ML SYRINGE IV PRN (04:33)
[2022-09-24] MEDS ORDERED: VANCOMYCIN HCL 1,000 MG in SODIUM CHLORIDE 0.9% 250 ML IV SCH (04:33)
[2022-09-24] MEDS ORDERED: GLUCOSE 10 TAB/TUBE PO PRN (04:33)
[2022-09-24] MEDS ORDERED: GLUCAGON FOR INJ 1 MG VIAL SQ PRN (04:33)
[2022-09-24] MEDS ORDERED: PIPERACILLIN/TAZOBACTAM 4.5 GM (over 30 mins) IV ONE (05:00)
[2022-09-24] MEDS ORDERED: VANCOMYCIN HCL 2,500 MG in SODIUM CHLORIDE 0.9% 500 ML IV ONE (05:30)
[2022-09-24 05:31] LABS: Appearance Urine Clear (Clear); Bilirubin Urine Negative (Negative); Blood Urine Negative (Negative); Color Urine Yellow; Glucose Urine UA Negative (Negative); Ketones Urine Trace (Negative); Leukocyte Esterase Urine Negative (Negative); Nitrite Urine Negative (Negative); Protein Urine Negative (Negative); Specific Gravity Urine 1.013 (1.000-1.030); Urobilinogen Urine Negative (Negative); pH Urine 5.5 (4.5-7.5)
[2022-09-24 07:18] LABS: Estimated Average Glucose 174 mg/dl; Hemoglobin A1C 7.7 % (4.5-5.6)
--- NOTE | 2022-09-24 07:21 | XRay Report ---
XR chest 1V portable CLINICAL HISTORY: Sepsis TECHNIQUE: Single frontal radiograph of the chest was obtained. Comparison: Comparison is made to chest radiograph 08/20/2016 FINDINGS: No lines and tubes are seen. Calcified aortic knob is seen. Lungs are underinflated but clear apart f rom right lower lung atelectasis. No evidence of pleural effusion or pneumothorax. IMPRESSION: No acute abnormalities and in particular no radiographic evidence of pneumonia. ACT 112: Negative or not required by law. Electronically signed by: Paulino Saha M.D. 09/24/2022 7:19 AM
[2022-09-24] MEDS: ALBUTEROL HFA 8 GM INHALER INH SCH ×2 (07:43→11:26)
[2022-09-24] MEDS: amLODIPine BESYLATE 5 MG TAB PO SCH (08:41)
[2022-09-24] MEDS: lisinopril 20 MG TAB PO SCH (08:41)
[2022-09-24] MEDS: CALCIUM 600MG + VIT D 400 IU TAB PO SCH (08:41)
[2022-09-24] MEDS: CEROVITE ADV FORMULA TAB PO SCH (08:41)
[2022-09-24] MEDS: CHOLECALCIFEROL 5,000 UNITS 125 MCG TAB PO SCH (08:41)
[2022-09-24] MEDS: SERTRALINE HCL 100 MG TABLET PO SCH (08:41)
[2022-09-24] MEDS: guaiFENesin 600 MG TABCR PO SCH ×2 (08:41→20:36)
[2022-09-24] MEDS: METOPROLOL SUCC 50MG EXT REL TAB PO SCH (08:41)
[2022-09-24] MEDS: PANTOprazole 40 MG TAB PO SCH (08:41)
[2022-09-24] MEDS: TRIAMCINOLONE ACET 0.1% CR 15 GM TUBE TOP SCH ×2 (08:42→20:35)
[2022-09-24] MEDS: INSULIN ASPART PER UNIT CHARGE SC SCH ×4 (08:58→20:34)
[2022-09-24] MEDS ORDERED: ATORVASTATIN 20 MG TAB PO SCH (09:00)
[2022-09-24] MEDS ORDERED: dexAMETHasone 4 MG in SYRINGE 0 ML IV SCH (10:00)
[2022-09-24] MEDS: PIPERACILLIN/TAZOBACTAM 4.5 GM in DEXTROSE 5% 100 ML IV SCH ×2 (10:58→18:04)
--- NOTE | 2022-09-24 12:34 | Pharmacy Report ---
Pharmacy PK ABX Note - Date of Service September 24, 2022 - Assessment and Plan Assessment 76 year old M receiving vancomycin/zosyn for treatment of RLE cellulitis. Pertinent microbiologic data includes: Blood cultures pending. Patient at risk for accumulation with BMI >35. Patient also with + COVID on respiratory panel, MRSA swab pending, procal <0.05. Lactate 3.5, mild leukocytosis, Tmax 38.5 on admission. Plan Vancomycin * Loading dose: [ ] mg IV x 1 * Maintenance dose: [] mg IV every [] hours * Regimen is predicted to achieve target AUC/AZAEL of 400-600 mg/L.hr * [Trough] [Random] level ordered for: []/[]/[] Pharmacy will continue to follow and will adjust dose/frequency as necessary. Thank you. Pharmacy has transitioned to AUC monitoring for vancomycin. AUC/AZAEL is the preferred PK/PD target and is associated with decreased risk of nephrotoxicity compared to traditional trough targets.
[2022-09-24] MEDS: LANTUS PER UNIT CHARGE SC SCH (13:25)
[2022-09-24] MEDS ORDERED: ALBUTEROL HFA 8 GM INHALER INH PRN (13:47)
[2022-09-24] MEDS: ACETAMINOPHEN 325 MG TAB PO PRN (15:43)
--- NOTE | 2022-09-24 16:06 | Electrocardiogram Report ---
Test Reason : Blood Pressure : / mmHG Vent. Rate : 098 BPM Atrial Rate : 000 BPM P-R Int : 000 ms QRS Dur : 088 ms QT Int : 340 ms P-R-T Axes : 000 018 072 degrees QTc Int : 434 ms Atrial fibrillation Low voltage QRS Nonspecific ST and T wave abnormality Abnormal ECG When compared with ECG of 22-AUG-2016 06:32, Nonspecific T wave abnormality, improved in Inferior leads T wave inversion no longer evident in Anterolateral leads Confirmed by Tu Prajapati ([id number]) on 09/24/2022 4:05:47 PM Referred By: REFERRED SELF Confirmed By:Tu Prajapati
[2022-09-24] MEDS: oxyCODONE HCL IR 5 MG TAB (IMMEDIATE RELEASE) PO PRN ×2 (16:30→20:34)
[2022-09-24] MEDS: DAPTOmycin 350 MG in SYRINGE 0 ML IV SCH (16:31)
[2022-09-24] MEDS: ABIRATERONE ACETATE 500 MG PO SCH (16:49)
[2022-09-24] MEDS ORDERED: VANCOMYCIN HCL 750 MG in SODIUM CHLORIDE 0.9% 250 ML IV SCH (17:00)
--- NOTE | 2022-09-24 22:30 | Hospitalist Progress Note ---
Date of Service September 24, 2022 Assessment & Plan Admission and Anticipated Discharge Date Admission Date: September 24, 2022 Results & Data Results & Data Vital Signs (Past 12 Hours) Vital Signs Temp Pulse Pulse Resp BP Pulse Ox O2 Del Method 09/24/22 20:08 Nasal Cannula 09/24/22 19:35 36.8 C 87 18 104/71 97 Nasal Cannula 09/24/22 18:43 87 09/24/22 11:30 36.9 C 87 20 117/77 96 Nasal Cannula 09/24/22 11:26 65 16 98 Nasal Cannula O2 Flow Rate 09/24/22 20:08 1 09/24/22 19:35 1 09/24/22 18:43 09/24/22 11:30 2 09/24/22 11:26 3 PG Care Time/CCT Total # of Minutes Spent Total Time Spent with Patient: Total time spent is greater than 50% in coordination of care (as documented) at patient's floor/unit and/or counseling patient: Coding Diagnoses
[2022-09-25] MEDS: PIPERACILLIN/TAZOBACTAM 4.5 GM in DEXTROSE 5% 100 ML IV SCH ×3 (02:50→17:22)
[2022-09-25] MEDS ORDERED: VANCOMYCIN LEVEL ONE (04:30)
[2022-09-25 06:44] LABS: Basophils # (auto) 0.02 K/uL (0-0.2); Basophils % (auto) 0.2 %; Eosinophils # (auto) 0.01 K/uL (0-0.50); Eosinophils % (auto) 0.1 %; Hematocrit (blood only) 37.9 % (42.0-52.0); Hemoglobin 12.7 g/dl (14.0-18.0); Immature Granulocytes # (auto) 0.22 K/uL (0.01-0.20); Immature Granulocytes % (auto) 1.7 %; Lymphocytes # (auto) 0.84 K/uL (1.2-3.4); Lymphocytes % (auto) 6.6 %; Mean Corpuscular Hemoglobin 32.3 pg (25.0-34.0); Mean Corpuscular Hgb Conc 33.5 g/dL (32.0-36.0); Mean Corpuscular Volume 96.4 fL (80.0-100.0); Mean Platelet Volume 10.1 fL (9.4-12.4); Monocytes # (auto) 1.02 K/uL (0.11-0.59); Monocytes % (auto) 8.1 %; Neutrophils # (auto) 10.55 K/uL (1.40-6.50); Neutrophils % (auto) 83.3 %; Platelet Count 121 K/uL (130-400); RDW Coefficient of Variation 13.2 % (11.5-14.5); Red Blood Count 3.93 M/uL (4.70-6.10); White Blood Count 12.66 K/ul (4.8-10.8)
[2022-09-25 07:00] LABS: Albumin Globulin Ratio 1.5 (0.9-2); Albumin Level 3.6 gm/dl (3.4-5.0); BUN Creatinine Ratio 20.3 (10-20); Bilirubin,Total 0.9 mg/dl (0.2-1.0); Calcium 8.3 mg/dl (8.6-10.3); Creatinine Clr Calc Pharmacy 64.1 ml/min; Est GFR (African American) 68.6 ml/min; Est GFR (Non-African American) 59.2 ml/min; Globulin 2.4 gm/dl (2.5-4.0); Magnesium 1.9 mg/dl (1.7-2.4); Potassium 4.1 mmol/L (3.5-5.1)
[2022-09-25] MEDS: ABIRATERONE ACETATE 500 MG PO SCH (09:05)
[2022-09-25] MEDS: INSULIN ASPART PER UNIT CHARGE SC SCH ×4 (09:05→21:15)
[2022-09-25] MEDS: LANTUS PER UNIT CHARGE SC SCH (09:05)
[2022-09-25] MEDS: dexAMETHasone 6 MG in SYRINGE 0 ML IV SCH (09:38)
[2022-09-25] MEDS: PANTOprazole 40 MG TAB PO SCH (09:38)
[2022-09-25] MEDS: amLODIPine BESYLATE 5 MG TAB PO SCH (09:38)
[2022-09-25] MEDS: CEROVITE ADV FORMULA TAB PO SCH (09:39)
[2022-09-25] MEDS: SERTRALINE HCL 100 MG TABLET PO SCH (09:39)
[2022-09-25] MEDS: METOPROLOL SUCC 50MG EXT REL TAB PO SCH (09:39)
[2022-09-25] MEDS: CALCIUM 600MG + VIT D 400 IU TAB PO SCH (09:39)
[2022-09-25] MEDS: guaiFENesin 600 MG TABCR PO SCH ×2 (09:39→22:12)
[2022-09-25] MEDS: CHOLECALCIFEROL 5,000 UNITS 125 MCG TAB PO SCH (09:39)
[2022-09-25] MEDS: lisinopril 20 MG TAB PO SCH (09:39)
[2022-09-25] MEDS: TRIAMCINOLONE ACET 0.1% CR 15 GM TUBE TOP SCH ×2 (09:39→21:25)
[2022-09-25 11:18] LABS: C Reactive Protein 14.98 mg/dl (0-0.5)
[2022-09-25] MEDS: ACETAMINOPHEN 325 MG TAB PO PRN ×2 (12:09→22:11)
--- NOTE | 2022-09-25 12:26 | Hospitalist Progress Note ---
Date of Service September 25, 2022 Assessment & Plan (1) COVID-19: (2) Hypomagnesemia: (3) Generalized weakness: (4) Nausea & vomiting: (5) Fever: (6) HTN (hypertension): (7) Anxiety: (8) Prostate cancer: (9) Depression: (10) DMII (diabetes mellitus, type 2): (11) Atrial fibrillation: (12) Hypercholesterolemia: (13) Prostate cancer metastatic to bone: (14) Lymphedema of both lower extremities: (15) Cellulitis of right lower extremity: Plan Acute respiratory failure with hypoxia/likely undiagnosed sleep apnea/COVID-19 infection/aspiration pneumonitis- Possble sepsis from aspiration pneumonia, though this appears less likely Likely cytikoine storm was caused from COVID 19. Will repeat procal, if continues to be negative will consider stopping zosyn as patient may not need IV antibiotics. Though he may need a short course due to possible cellulitis Patient did have worsening symptoms after he vomited priro to admission, however, there is probably some component of COVID-19 infection causing his hypoxia as well, along with obesity hypoventilation syndrome Continue BiPAP for now, titrated downward to mask and now on minimal nasal cannula Received dexamethasone 6 mg IV from the ED, continue dexamethasone, titrated down to daily. Received DuoNebs in the ED. Placed on albuterol HFA 2 puffs 4 times daily, every 2 hours as needed Received cefepime 2 g IV in the ED. Placed on Zosyn 4.5 g IV every 8 hours. Right lower extremity cellulitis/chronic lymphedema/chronic venous stasis dermatitis- Mechanism is probably vacuolization rupture and secondary cellulitis Patient vancomycin IV per pharmacokinetic monitoring and Zosyn IV as noted above Consult wound care Hypomagnesemia- Magnesium 1.4 in the ED, received 2 g of mag sulfate IV, improved. Atrial fibrillation/hypertension- Continue amlodipine, lisinopril, metoprolol succinate Diabetes mellitus- Hold glimepiride Placed on Accu-Cheks with NovoLog SSI Awaiting PT/OT evals likely will need rehab Admission and Anticipated Discharge Date Admission Date: September 24, 2022 Subjective Patient reports feeling improved. HOwever he still feeels generalized weakness and fatigue. Review of Systems Review of Systems: All systems reviewed & are unremarkable except as noted in HPI & below Physical Exam Physical Exam: The patient is awake, alert and oriented 3, normocephalic and atraumatic, silting in bed upright, HEENT--PERRL, EOMI, mucous membranes and oropharynx dry. Neck--supple. No JVD. No bruits. Thyroid normal, trachea midline, no adenopathy. Heart--normal S1 and S2. No murmurs, rubs or gallops. Lungs--few coarse breath sounds bilaterally., Mild respiratory distress, no accessory muscle use. Abdomen--normal bowel sounds and soft. Nontender. Nondistended. Morbidly obese Extremities--no cyanosis or clubbing. Right lower extremity with appears to be decreased ertyhtema,, vacuolization, some open abrasions. Left lower extremity with mild edema and vacuoles Psychiatric--normal affect. Results & Data Results & Data Vital Signs (Past 12 Hours) Vital Signs Temp Pulse Pulse Resp BP Pulse Ox O2 Del Method 09/25/22 11:30 36.6 C 88 16 117/74 97 Room Air 09/25/22 08:00 Nasal Cannula 09/25/22 08:00 78 09/25/22 07:30 36.5 C 88 18 126/63 Room Air 09/25/22 03:17 36.5 C 89 22 145/94 H 98 Nasal Cannula O2 Flow Rate 09/25/22 11:30 09/25/22 08:00 1 09/25/22 08:00 09/25/22 07:30 09/25/22 03:17 1 PG Care Time/CCT Total # of Minutes Spent Total Time Spent with Patient: Total time spent is greater than 50% in coordination of care (as documented) at patient's floor/unit and/or counseling patient: Coding Level of Care Code 55050 SUB INP/OBS CARE 3/50MIN Diagnoses COVID-19 U07.1 Hypomagnesemia E83.42 Generalized weakness R53.1 Nausea & vomiting R11.2 Fever R50.9 HTN (hypertension) I10 Anxiety F41.9 Prostate cancer C61 Depression F32.9 DMII (diabetes mellitus, type 2) E11.9 Atrial fibrillation I48.91 Hypercholesterolemia E78.00 Prostate cancer metastatic to bone C61; C79.51 Lymphedema of both lower extremities I89.0 Cellulitis of right lower extremity L03.115
[2022-09-25] MEDS: DAPTOmycin 350 MG in SYRINGE 0 ML IV SCH (17:21)
[2022-09-26] MEDS: oxyCODONE HCL IR 5 MG TAB (IMMEDIATE RELEASE) PO PRN (01:00)
[2022-09-26] MEDS: PIPERACILLIN/TAZOBACTAM 4.5 GM in DEXTROSE 5% 100 ML IV SCH ×3 (02:32→18:32)
[2022-09-26 04:53] LABS: A calco-baum cmplx NotReported Not Detected (NotDetected); Bact fragilis Not Reported Not Detected (NotDetected); C auris Not Reported Not Detected (NotDetected); Calbicans Not Reported Not Detected (NotDetected); Candida glabrata Not Reported Not Detected (NotDetected); Candida krusei Not Reported Not Detected (NotDetected); Cneoformans/gatti Not Reported Not Detected (NotDetected); Cparapsilosis Not Reported Not Detected (NotDetected); Ctropicalis Not Reported Not Detected (NotDetected); E cloacae compx Not Reported Not Detected (NotDetected); Efaecalis Not Reported Not Detected (NotDetected); Efaecium Not Reported Not Detected (NotDetected); Enterobacterales Not Reported Not Detected (NotDetected); Escherichia coli Not Reported Not Detected (NotDetected); H influenzae Not Reported Not Detected (NotDetected); K aerogenes Not Reported Not Detected (NotDetected); Koxytoca Not Reported Not Detected (NotDetected); Kpneumoniae grp Not Reported Not Detected (NotDetected); Lmonocyt Not Reported Not Detected (NotDetected); N meningitidis Not Reported Not Detected (NotDetected); P aeruginosa Not Reported Not Detected (NotDetected); Proteus spp Not Reported Not Detected (NotDetected); Salmonella spp Not Reported Not Detected (NotDetected); Smarcescens Not Reported Not Detected (NotDetected); Staph lugdunensis Not Reported Not Detected (NotDetected); Staph spp. Not Reported Not Detected (NotDetected); Staphaureus Not Reported Not Detected (NotDetected); Staphepi Not Reported Not Detected (NotDetected); Stenmaltophilia Not Reported Not Detected (NotDetected); Strep agal(GrpB) Not Reported Not Detected (NotDetected); Strep pneum Not Reported Not Detected (NotDetected); Strep pyog (GrpA) Not Reported Not Detected (NotDetected); Strep spp Not Reported Not Detected (NotDetected)
--- NOTE | 2022-09-26 07:19 | Hospitalist Progress Note ---
Date of Service September 26, 2022 Assessment & Plan (1) COVID-19: Plan: Acute respiratory failure with hypoxia/likely undiagnosed sleep apnea/COVID-19 infection/aspiration pneumonitis- Possble sepsis from aspiration pneumonia, though this appears less likely metaboic encephalopathy from infection causing weakness Likely cytikoine storm was caused from COVID 19. C-reactive protein has come down from 14-6 implying good treatment course procalcitonin has not been negative but and clinical correlation will complete a course of 5 days of antibiotics for possible gram-negative pneumonia Patient did have worsening symptoms after he vomited prior to admission, however, there is probably some component of COVID-19 infection causing his hypoxia as well, along with obesity hypoventilation syndrome Continue BiPAP titrated downward to mask and now on minimal nasal cannula Received dexamethasone 6 mg IV from the ED, continue dexamethasone, titrated down to daily. complete 10-day course Received DuoNebs in the ED. Placed on albuterol HFA 2 puffs 4 times daily, every 2 hours as needed Received cefepime 2 g IV in the ED. Placed on Zosyn 4.5 g IV every 8 hours. (2) Atrial fibrillation: Plan: rate controlled with metoprolol chornic and stable chronic stable hypertension treated also with amlodipine and lisinopril (3) DMII (diabetes mellitus, type 2): Plan: Holding oral agents, continue basal bolus; last A1c is 7.7 (4) Depression: Plan: chronic and stable on sertraline (5) Prostate cancer metastatic to bone: (6) Cellulitis of right lower extremity: Plan: Right lower extremity cellulitis/chronic lymphedema/chronic venous stasis dermatitis- Patient Daptomycin and Zosyn IV Consult wound care Plan did well with PT OT evaluations recommending outpatient physical therapy Admission and Anticipated Discharge Date Admission Date: September 24, 2022 Subjective had discussion with patient and significant other. Mostly revolving around significant other his mother who is in her 90s and exposure to COVID. The patient himself feels he is back at his baseline with his chronic health issues including persistent venous stasis dermatitis lower extremity swelling. His symptoms of fatigue nausea decreased intake and shortness of breath of all improved dramatically Physical Exam Physical Exam: physical examination his lungs are without coarse breath sounds or focal air loss or no wheezes card exam is regular extremities are with chronic venous stasis changes and chronic venous stasis dermatitis he was probably 1+ edema Results & Data Results & Data Vital Signs (Past 12 Hours) Vital Signs Temp Pulse Pulse Resp BP Pulse Ox O2 Del Method 09/26/22 02:48 97.7 F 89 20 134/82 92 Room Air 09/25/22 22:51 81 09/25/22 22:48 97 Room Air, Nasal Cannula 09/25/22 22:36 98.2 F 90 22 152/99 H 94 Room Air 09/25/22 19:33 98.2 F 107 H 20 149/86 H 96 Room Air O2 Flow Rate 09/26/22 02:48 09/25/22 22:51 09/25/22 22:48 1 09/25/22 22:36 09/25/22 19:33 Laboratory Results reviewed CBC reviewed chemistry reviewed C-reactive protein PG Care Time/CCT Total # of Minutes Spent Total Time Spent with Patient: Total time spent is greater than 50% in coordination of care (as documented) at patient's floor/unit and/or counseling patient: Coding Level of Care Code 56395 SUB INP/OBS CARE 3/50MIN Diagnoses COVID-19 U07.1 Atrial fibrillation I48.91 DMII (diabetes mellitus, type 2) E11.9 Depression F32.9 Prostate cancer metastatic to bone C61; C79.51 Cellulitis of right lower extremity L03.115
[2022-09-26 07:30] LABS: Basophils # (auto) 0.02 K/uL (0-0.2); Basophils % (auto) 0.2 %; Eosinophils # (auto) 0.01 K/uL (0-0.50); Eosinophils % (auto) 0.1 %; Immature Granulocytes # (auto) 0.26 K/uL (0.01-0.20); Immature Granulocytes % (auto) 2.1 %; Lymphocytes # (auto) 1.01 K/uL (1.2-3.4); Lymphocytes % (auto) 8.3 %; Mean Corpuscular Hemoglobin 31.9 pg (25.0-34.0); Mean Corpuscular Hgb Conc 33.3 g/dL (32.0-36.0); Mean Corpuscular Volume 95.8 fL (80.0-100.0); Mean Platelet Volume 10.4 fL (9.4-12.4); Monocytes # (auto) 0.83 K/uL (0.11-0.59); Monocytes % (auto) 6.8 %; Neutrophils # (auto) 10.06 K/uL (1.40-6.50); Neutrophils % (auto) 82.5 %; Platelet Count 124 K/uL (130-400); RDW Coefficient of Variation 13.2 % (11.5-14.5); RDW Standard Deviation 46.7 fL (36.4-46.3); Red Blood Count 4.07 M/uL (4.70-6.10); White Blood Count 12.19 K/ul (4.8-10.8)
[2022-09-26 07:56] LABS: Est GFR (African American) 93.9 ml/min; Potassium 4.6 mmol/L (3.5-5.1)
[2022-09-26 07:57] LABS: Albumin Globulin Ratio 1.4 (0.9-2); Albumin Level 3.6 gm/dl (3.4-5.0); BUN Creatinine Ratio 26.4 (10-20); Bilirubin,Total 0.7 mg/dl (0.2-1.0); Calcium 8.4 mg/dl (8.6-10.3); Creatinine Clr Calc Pharmacy 83.5 ml/min; Globulin 2.5 gm/dl (2.5-4.0); Magnesium 2.1 mg/dl (1.7-2.4); Total Protein 6.1 gm/dl (6.0-8.3)
[2022-09-26 08:00] LABS: BUN Creatinine Ratio 26.1 (10-20); C Reactive Protein 6.6 mg/dl (0-0.5); Calcium 8.3 mg/dl (8.6-10.3); Creatinine Clr Calc Pharmacy 86.3 ml/min; Est GFR (Non-African American) 82.9 ml/min; Magnesium 2.1 mg/dl (1.7-2.4); Potassium 4.5 mmol/L (3.5-5.1)
[2022-09-26] MEDS: ACETAMINOPHEN 325 MG TAB PO PRN ×2 (09:16→17:19)
[2022-09-26] MEDS: dexAMETHasone 6 MG in SYRINGE 0 ML IV SCH (09:17)
[2022-09-26] MEDS: CEROVITE ADV FORMULA TAB PO SCH (09:18)
[2022-09-26] MEDS: amLODIPine BESYLATE 5 MG TAB PO SCH (09:18)
[2022-09-26] MEDS: lisinopril 20 MG TAB PO SCH (09:19)
[2022-09-26] MEDS: CHOLECALCIFEROL 5,000 UNITS 125 MCG TAB PO SCH (09:19)
[2022-09-26] MEDS: PANTOprazole 40 MG TAB PO SCH (09:20)
[2022-09-26] MEDS: SERTRALINE HCL 100 MG TABLET PO SCH (09:20)
[2022-09-26] MEDS: CALCIUM 600MG + VIT D 400 IU TAB PO SCH (09:20)
[2022-09-26] MEDS: guaiFENesin 600 MG TABCR PO SCH ×2 (09:20→21:11)
[2022-09-26] MEDS: METOPROLOL SUCC 50MG EXT REL TAB PO SCH (09:21)
[2022-09-26] MEDS: TRIAMCINOLONE ACET 0.1% CR 15 GM TUBE TOP SCH ×2 (09:22→21:11)
[2022-09-26] MEDS: INSULIN ASPART PER UNIT CHARGE SC SCH ×4 (09:38→21:33)
[2022-09-26] MEDS: LANTUS PER UNIT CHARGE SC SCH (09:39)
[2022-09-26] MEDS: ABIRATERONE ACETATE 500 MG PO SCH (09:39)
[2022-09-26] MEDS: DAPTOmycin 350 MG in SYRINGE 0 ML IV SCH (18:32)
[2022-09-27] MEDS: PIPERACILLIN/TAZOBACTAM 4.5 GM in DEXTROSE 5% 100 ML IV SCH ×3 (02:50→11:56)
[2022-09-27 03:58] VITALS: O2SAT 96
[2022-09-27] MEDS: INSULIN ASPART PER UNIT CHARGE SC SCH ×2 (08:06→13:12)
[2022-09-27] MEDS: LANTUS PER UNIT CHARGE SC SCH (08:27)
[2022-09-27] MEDS: METOPROLOL SUCC 50MG EXT REL TAB PO SCH (08:44)
[2022-09-27] MEDS: CHOLECALCIFEROL 5,000 UNITS 125 MCG TAB PO SCH (08:45)
[2022-09-27] MEDS: PANTOprazole 40 MG TAB PO SCH (08:45)
[2022-09-27] MEDS: CALCIUM 600MG + VIT D 400 IU TAB PO SCH (08:46)
[2022-09-27] MEDS: CEROVITE ADV FORMULA TAB PO SCH (08:46)
[2022-09-27] MEDS: lisinopril 20 MG TAB PO SCH (08:47)
[2022-09-27] MEDS: SERTRALINE HCL 100 MG TABLET PO SCH (08:48)
[2022-09-27] MEDS: amLODIPine BESYLATE 5 MG TAB PO SCH (08:48)
[2022-09-27] MEDS: dexAMETHasone 6 MG in SYRINGE 0 ML IV SCH (08:50)
[2022-09-27] MEDS: TRIAMCINOLONE ACET 0.1% CR 15 GM TUBE TOP SCH (08:50)
[2022-09-27] MEDS ORDERED: FUROSEMIDE 40 MG TAB PO ONE (09:07)
[2022-09-27 11:26] VITALS: BP 114/54; PULSE 60; TEMP 97.7
[2022-09-27] MEDS: ABIRATERONE ACETATE 500 MG PO SCH (11:43)
[2022-09-27] MEDS: guaiFENesin 600 MG TABCR PO SCH (11:44)
[2022-09-27] MEDS: oxyCODONE HCL IR 5 MG TAB (IMMEDIATE RELEASE) PO PRN (11:56)
--- NOTE | 2022-09-27 16:45 | Discharge Summary ---
Date of Service September 27, 2022 Admission HPI Per Admitting Provider The patient is a 76-year-old male with a past medical history including hypertension, anxiety, diabetes mellitus type 2, depression, atrial fibrillation, hypercholesterolemia, prostate cancer metastatic to bone, bilate ral lower extremity lymphedema, stasis dermatitis of both legs and lumbar spinal stenosis. Patient presents to the emergency department with symptoms as noted above. Due to hypoxia, he did have COVID-19 testing performed in the emergency department which was positive. It is unclear by his history whether his symptoms of difficulty breathing he can after his vomiting episodes or with the breathing was more of a difficulty prior to that Principal Diagnosis acute respiratory failure secondary to Covid possible secondary bacterial infection stasis dermatitis Discharge Exam pt has clear lungs 1+ edema to lower extremity chronic venous stasis changes Discharge Data Allergies Allergy/AdvReac Type Severity Reaction Status Date / Time cat dander Allergy Severe CAN CAUSE Verified 09/24/22 00:30 ASTHMA ATTACK-itchy eyes, congestion Consultations 09/24/22 01:45 ED Decision to Admit Stat Hospital Course (1) COVID-19: Acute respiratory failure with hypoxia/likely undiagnosed sleep apnea/COVID-19 infection/aspiration pneumonitis- Possble sepsis from aspiration pneumonia, though this appears less likely metabolic encephalopathy from infection causing weakness C-reactive protein has come down from 14-6 implying good treatment course procalcitonin has not been negative but and clinical correlation will complete a course of 7 days of antibiotics blood cultures were ammneded to be corynebacterium which is likely a contaminant Given home isolating recommendations on d/c Patient did have worsening symptoms after he vomited prior to admission, however, there is probably some component of COVID-19 infection causing his hypoxia as well, along with obesity hypoventilation syndrome BiPAP titrated downward to mask and now on room air Received dexamethasone 6 mg IV from the ED, continue dexamethasone, titrated down to daily. complete 10-day course Received cefepime 2 g IV in the ED. 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 Plan did well with PT OT evaluations recommending outpatient physical therapy, Rx given at dc Total Time Total Time Spent Total Time Spent (In Minutes): it required greater than 30 minutes to prepare this patient for discharge Discharge Plan Discharge Items Patient Disposition: Home - Home Health Services Reason For Visit: RLE CELLULITIS,N/V,ACUTE RESP FAIL,HYPOXIA,COVID19 Discharge Diagnosis: acute respiratory failure secondary to Covid possible secondary bacterial infection stasis dermatitis Activity: Per Instructions section Activity Comment: rest and recover Non-emergency contact: Primary Care Provider Call non-emergency contact if: your symptoms worsen Follow-up/Referrals: Kings Rios, [Primary Care Provider] - Diet: Carb Consistent or DM2 Addtl Attending Provider Instructions: You have been diagnosed with covid infection, it would be recommended that you quarantine yourself for 10 days from your first test or first symptoms, and if at the 10th day you have no symptoms the you can come off quarantine but use common sense precautions. Quarantine means attempting to stay away from people who have not had an active covid infection in the past, and if you have to be around others to wear a mask even if you are indoors, do not share a room to sleep in with others until you are out of quarantine.yourquarentine should be over on the 02 of october If you still have symptoms at the 10th day, continue to quarantine until you are symptom free for 48 hours complete additional medication of dexamethasone for 7 additional doses Antibiotic for 4 more days Pending Studies at Discharge: No Stand-Alone Forms: My [facility] Reactivity, Smoking Cessation Medications and DC Order Prescriptions: New dexamethasone 6 mg tablet 6 mg PO DAILY Qty: 7 0RF amoxicillin-pot clavulanate 875-125 mg tablet 1 tab PO BID Qty: 8 0RF Continued Lupron Depot (4 month) 30 mg syringe kit 30 mg IM Q16W Qty: 1 0RF glimepiride 1 mg tablet 1 mg PO DAILY Qty: 90 1RF metoprolol succinate 200 mg tablet extended release 24 hr 200 mg PO DAILY Qty: 90 3RF amlodipine 10 mg tablet 10 mg PO QAM Qty: 90 3RF lisinopril 20 mg tablet 20 mg PO DAILY Qty: 90 3RF omeprazole 20 mg tablet,disintegrat, delay rel 20 mg PO QAM Qty: 90 3RF atorvastatin 20 mg tablet 20 mg PO QAM Qty: 90 3RF oxycodone 5 mg tablet 5 mg PO Q4H PRN (Reason: Pain) sertraline 100 mg tablet 100 mg PO QAM Qty: 90 3RF prednisone 5 mg Tablet 5 mg PO BID abiraterone [Zytiga] 500 mg Tablet 1,000 mg PO QAM calcium carbonate-vitamin D3 [Calcium 500 + D] 500 mg(1,250mg) -200 unit Tablet 1 tab PO QAM acetaminophen [Tylenol Extra Strength] 500 mg Tablet 1,000 mg PO DIRECTED PRN (Reason: Pain) multivitamin with minerals Tablet 1 tab PO DAILY ondansetron 4 mg Tablet,Disintegrating 4 mg PO Q8H PRN (Reason: NAUSEA/VOMITING) Xgeva 120 mg/1.7 mL (70 mg/mL) Solution 120 mg SUBCUT DIRECTED triamcinolone acetonide 0.1 % Cream 1 applic TOPICAL DIRECTED Rx Instructions: APPLY BID FRIDAY THROUGH FRIDAY TO LEG DIRECTED. Discharge Orders: Discharge Order (Routine); Ordered 09/27/22 Ordered By: Angel Gregorio/Other Patient Handouts: Managing Type 2 Diabetes Admission Data Admit Date/Time: 09/24/22 02:54 Attending Provider: Angel Sumner Admit Provider: Jeanmarie Brownlee Primary Care Provider: Kings Rios Other Providers: Jeanmarie Brownlee Other Interventions: Discharge Summary Assessment (RN) Last Done: 09/27/22 15:39 Coding Level of Care Code 41610 INP/OBS DISCH >30 MIN Diagnoses COVID-19 U07.1 Atrial fibrillation I48.91 DMII (diabetes mellitus, type 2) E11.9 Depression F32.9 Prostate cancer metastatic to bone C61; C79.51 Cellulitis of right lower extremity L03.115
== END 2022-09-27 16:35 | disposition home health service (06) | DRG 871 ==
LOC: ED 23:39 → 2E 09-24 02:54 → SUATTDRO 09-24 02:54 → 2E 09-24 04:17

== ENCOUNTER 2022-10-12 12:58 | Observation (INO) ==
[2022-10-12] MEDS ORDERED: fentaNYL citrate PF 100 MCG/2 ML VIAL IV STA ×2 (13:18→15:39)
--- NOTE | 2022-10-12 13:20 | Emergency Department Note ---
Impression & Plan Acute pain of left lower extremity, Acute deep vein thrombosis (DVT) of distal vein of left lower extremity ED Provider Note HISTORY OF PRESENT ILLNESS: Patient is a 76-year-old male presenting with left inner thigh and low back pain. Patient reports symptoms started 2 days ago. He denies any injury to the leg or to the hip. Denies any recent falls. He states that the left inner thigh and left quadriceps region are very tender to palpation. Denies any DVT history. He is not on any anticoagulation. He states that today he was unable to stand up secondary to immense pain in his proximal left leg and low back. Denies any numbness or tingling down his legs. He has a history of prostate cancer and intermittently takes oxycodone. He states he took a dose this morning without any relief of symptoms. Denies any fevers. ROS: as above PHYSICAL EXAM: Constitutional: Patient appears in no acute distress. HENT: Head: Normocephalic and atraumatic. Eyes: EOMI, PERRL Mouth/Throat: Mucous membranes moist. Neck: Trachea midline. Neck supple. Abdominal: Abdomen soft, no tenderness, rebound or guarding. Back: No midline spinal tenderness, no paraspinal tenderness, no CVA tenderness. Musculoskeletal: - LLE: Able to range the hip and knee without any significant pain. Patient does have reproducible tenderness to palpation on palpation of the inner thigh. No obvious rash. Intact femoral and distal DP pulses. Sensation intact to light touch at the nerve distributions of the leg. Skin: Warm and dry. No rash, erythema, pallor or cyanosis Psychiatric: Appropriate mood and affect for situation. Neurological: Alert and keenly responsive. CN II-XII grossly intact MDM: - Vitals signs stable. - History obtained via patient. Patient presents with left leg pain. Patient reports symptoms started 2 days ago. He denies any injury to the back or to the hip. Denies any recent falls. He complains of pain in his left inner thigh. Reports that today he was unable to get up and stand secondary to immense pain and had to call 911. He reports a history of prostate cancer and intermittently takes oxycodone, and he reports he took a dose this morning without any relief of symptoms. Denies any dysuria or hematuria. Denies any fevers. - Chronic conditions affecting care: IBS; HLD; prostate cancer - Differential diagnoses include, but are not limited to: Compression fracture of the lumbar spine; hip fracture; myositis; deconditioning - Order placed for continuous cardiac monitoring. At this time, monitor showed rate of 88 bpm with normal sinus rhythm, per my interpretation. - External medical records reviewed. - Laboratory workup interpreted by myself showed normal WBC; thrombocytopenia (plt 129); normal electrolytes other than hypocalcemia (Ca 8.1) - LLE DVT scan shows nonocclusive thrombus in the left popliteal vein. - UA negative for infection - CT lumbar spine wo contrast negative for acute pathology - CT pelvis wo contrast negative for acute pathology - Patient initially given 50 mcg IV fentanyl. On reassessment, he is still complaining of significant pain in his proximal left leg. He was given additional 50 mcg of IV fentanyl. Attempted to get the patient up to ambulate, but he was still complaining of significant pain. - Discussion was had with nephrology social worker about patient's case and need for admission for PT/OT assessment - Hospitalist consulted for admission - [facility] for further evaluation and management. ASSESSMENT AND PLAN: Diagnosis: left leg pain; acute DVT of distal vein in the left lower extremity Plan: admit Past Med/Surg History Medical History Androgen-induced osteoporosis Chronic steroid use PROSTATE CANCER Fatigue Hydronephrosis of right kidney Hyperlipidemia IBS (irritable bowel syndrome) Insomnia Resolved Kidney stones Osteoarthritis Prostate cancer (11/03/14) Prostate nodule Psychosis Had hx of depression with psychotic episode - resolved Renal insufficiency Sacral lesion Ureter injury OBSTRUCTION OF RT URETER 2/2 PROSTATE CA Urinary frequency Urinary incontinence Urge incontinence Urinary retention Resolved Urinary tract infection Resolved Surgical History History of cataract surgery 2018 - Bilat History of colonoscopy 2011 (due in 2021) History of prostate biopsy 2014 History of tonsillectomy as a child History of tooth extraction in age 19's S/P TURP 2014 Family History Mother , Passed age 60 of sepsis Gallbladder disease Mental disorder Psychological disorder Father , Passed age 89 of sepsis (infected bladder stones) Congestive heart failure Bladder stones Prostate cancer no treatment needed Brother Heart failure Kidney stones Kidney disease Bladder cancer, Onset Age: 75 Myocardial infarction Grandmother (Paternal) , Passed age 93 of old age Breast cancer, Onset Age: 40 double mastectomy and then did well Sister , Passed age 2 of pneumonia No problems noted. Other Has no children Denies family history of Colon cancer Ovarian cancer Social History Smoking Status: Never smoker Tobacco Type: Cigarettes Age Started Using Tobacco: 20; Age Quit Using Tobacco: 39; packs per day: 0.5; Cigarettes Per Day: 10; Second Hand Exposure: No; Do You Dip or Chew Tobacco: No; Hx Alcohol Use: No Hx Substance Use: No Preferred Language: Turkish Communication Ability: Effective Communication Tools: Other Visual Impairment: Limited Hearing Ability: Normal Scientific Research Manager Required: No Beliefs That Will Affect Care: None marital status: Current Living Situation: Family Current Living Situation Comment: LIVES W/ OLIVER current occupational status: retired 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 Feels Safe at Home: Yes Childhood Exposure to Second-Hand Smoke: No Diet: diabetic caffeine: Yes (1 cup of coffee/day ) during the past year weight has: remained stable Dental Care, Regularly: No Physical Activity Frequency: Does not Exercise Seatbelt Use: always Sunscreen Use: Yes Assistive Devices: Cane and Walker Allergies Allergies Allergy/AdvReac Type Severity Reaction Status Date / Time cat dander Allergy Severe CAN CAUSE Verified 09/24/22 00:30 ASTHMA ATTACK-itchy eyes, congestion Home Meds Home Medications Medication Instructions Recorded Confirmed abiraterone 500 mg tablet (Zytiga) 1,000 mg PO QAM 07/13/18 10/12/22 calcium carbonate 500 mg-vitamin 1 tab PO QAM 07/13/18 10/12/22 D3 5 mcg (200 unit) tablet (Calcium 500 + D) prednisone 5 mg tablet 5 mg PO BID 07/13/18 09/30/22 oxycodone 5 mg tablet 5 mg PO Q4H PRN Pain 03/16/20 09/30/22 acetaminophen 500 mg tablet 1,000 mg PO DIRECTED PRN Pain 09/24/22 10/12/22 (Tylenol Extra Strength) denosumab 120 mg/1.7 mL (70 mg/mL) 120 mg subcut DIRECTED 09/24/22 09/30/22 subcutaneous solution (Xgeva) multivitamin with minerals 1 tab PO DAILY 09/24/22 09/30/22 ondansetron 4 mg disintegrating 4 mg PO Q8H PRN NAUSEA/VOMITING 09/24/22 09/30/22 tablet triamcinolone acetonide 0.1 % 1 applic topical DIRECTED 09/24/22 09/30/22 topical cream dexamethasone 6 mg tablet 6 mg PO QAM 10/12/22 10/12/22 Previous Rx's Medication Instructions Recorded leuprolide (4 month) 30 mg (4 30 mg IM Q16W #1 ea 07/28/19 month) intramuscular syringe kit (Lupron Depot) sertraline 100 mg tablet 100 mg PO QAM #90 tabs 09/01/19 glimepiride 1 mg tablet 1 mg PO DAILY #90 tabs 05/22/22 metoprolol succinate 200 mg 200 mg PO DAILY #90 tabs 07/15/22 tablet,extended release 24 hr amlodipine 10 mg tablet 10 mg PO QAM #90 tabs 07/18/22 lisinopril 20 mg tablet 20 mg PO DAILY #90 tabs 07/23/22 omeprazole 20 mg delayed 20 mg PO QAM #90 tabs 09/03/22 release,disintegrating tablet atorvastatin 20 mg tablet 20 mg PO QAM #90 tabs 09/18/22 Results & Data (ED) Vital Signs Vital Signs - 24 hr 10/12/22 13:00 10/12/22 14:25 10/12/22 16:00 Temperature 37.1 C Temperature Source Oral Pulse Rate 92 H Pulse Rate [Radial] 86 88 Pulse Rhythm [Radial] Regular Regular Pulse Strength [Radial] Normal Respiratory Rate 18 18 17 Respiratory Effort / Characteristics Non-Labored Non-Labored Non-Labored Spontaneous Respiratory Depth Normal Normal Normal Respiratory Pattern Regular Regular Regular Blood Pressure 141/96 H Blood Pressure [Right Arm] 132/83 146/99 H Blood Pressure Mean 111 Blood Pressure Mean [Right Arm] 99 114 Blood Pressure Position [Right Arm] Semi-fowlers Pulse Oximetry 94 93 94 Oxygen Delivery Method Room Air Room Air Room Air Sepsis Recent Fever Within 48 Hours No Sepsis New/Unexplained Change in Mental Status N/A Sepsis Action Taken by Nursing No Action Required Laboratory Data 10/12/22 12:30 10/12/22 12:30 Lab Results 10/12/22 10/12/22 10/12/22 Range/Units 12:30 12:30 12:30 WBC 7.36 (4.8-10.8) K/ul RBC 4.57 L (4.70-6.10) M/uL Hgb 14.3 (14.0-18.0) g/dl Hct 42.9 (42.0-52.0) % MCV 93.9 (80.0-100.0) fL MCH 31.3 (25.0-34.0) pg MCHC 33.3 (32.0-36.0) g/dL RDW Std Deviation 45.2 (36.4-46.3) fL RDW Coeff of Tramaine 13.2 (11.5-14.5) % Plt Count 129 L (130-400) K/uL MPV 9.9 (9.4-12.4) fL Immature Gran % (Auto) 2.4 % Neut % (Auto) 76.8 % Lymph % (Auto) 10.6 % [place] % (Auto) 8.3 % Eos % (Auto) 1.4 % Baso % (Auto) 0.5 % Neut # (Auto) 5.65 (1.40-6.50) K/uL Lymph # (Auto) 0.78 L (1.20-3.40) K/uL [place] # (Auto) 0.61 H (0.11-0.59) K/uL Eos # (Auto) 0.10 (0.00-0.50) K/uL Baso # (Auto) 0.04 (0.00-0.20) K/uL Immature Gran # (Auto) 0.18 (0.01-0.20) K/uL PT 10.6 (9.0-12.0) Seconds INR 1.0 (0.9-1.1) Sodium 137 (136-145) mmol/L Potassium 3.5 (3.5-5.1) mmol/L Chloride 103 (98-107) mmol/L Carbon Dioxide 28 (21-32) mmol/L Anion Gap 6 (3-11) BUN 14 (6-23) mg/dl Creatinine 0.86 (0.6-1.4) mg/dl Est Cr Clr Drug Dosing 85.8 ml/min Est GFR ( Amer) 96.9 ml/min Est GFR (Non-Af Amer) 83.6 ml/min BUN/Creatinine Ratio 16.3 (10-20) Glucose 207 H (70-99(Fasting)) mg/dl Calcium 8.1 L (8.6-10.3) mg/dl Total Bilirubin 0.7 (0.2-1.0) mg/dl AST 15 (13-39) U/L ALT 16 (7-52) U/L Alkaline Phosphatase 45 (34-104) U/L Total Creatine Kinase 23 L (30-223) U/L Total Protein 5.2 L (6.0-8.3) gm/dl Albumin 3.4 (3.4-5.0) gm/dl Globulin 1.8 L (2.5-4.0) gm/dl Albumin/Globulin Ratio 1.9 (0.9-2) Urine Color Urine Appearance (Clear) Urine pH (4.5-7.5) Ur Specific [place] (1.000-1.030) Urine Protein (Negative) Urine Glucose (UA) (Negative) Urine Ketones (Negative) Urine Blood (Negative) Urine Nitrite (Negative) Urine Bilirubin (Negative) Urine Urobilinogen (Negative) Ur Leukocyte Esterase (Negative) Urine WBC (Auto) (0-5) /hpf Urine RBC (Auto) (0-4) /hpf U Hyaline Cast (Auto) (0-5) /lpf U Epithel Cells (Auto) (0-5) /lpf Urine Bacteria (Auto) (Negative) 10/12/22 Range/Units 15:52 WBC (4.8-10.8) K/ul RBC (4.70-6.10) M/uL Hgb (14.0-18.0) g/dl Hct (42.0-52.0) % MCV (80.0-100.0) fL MCH (25.0-34.0) pg MCHC (32.0-36.0) g/dL RDW Std Deviation (36.4-46.3) fL RDW Coeff of Tramaine (11.5-14.5) % Plt Count (130-400) K/uL MPV (9.4-12.4) fL Immature Gran % (Auto) % Neut % (Auto) % Lymph % (Auto) % [place] % (Auto) % Eos % (Auto) % Baso % (Auto) % Neut # (Auto) (1.40-6.50) K/uL Lymph # (Auto) (1.20-3.40) K/uL [place] # (Auto) (0.11-0.59) K/uL Eos # (Auto) (0.00-0.50) K/uL Baso # (Auto) (0.00-0.20) K/uL Immature Gran # (Auto) (0.01-0.20) K/uL PT (9.0-12.0) Seconds INR (0.9-1.1) Sodium (136-145) mmol/L Potassium (3.5-5.1) mmol/L Chloride (98-107) mmol/L Carbon Dioxide (21-32) mmol/L Anion Gap (3-11) BUN (6-23) mg/dl Creatinine (0.6-1.4) mg/dl Est Cr Clr Drug Dosing ml/min Est GFR ( Amer) ml/min Est GFR (Non-Af Amer) ml/min BUN/Creatinine Ratio (10-20) Glucose (70-99(Fasting)) mg/dl Calcium (8.6-10.3) mg/dl Total Bilirubin (0.2-1.0) mg/dl AST (13-39) U/L ALT (7-52) U/L Alkaline Phosphatase (34-104) U/L Total Creatine Kinase (30-223) U/L Total Protein (6.0-8.3) gm/dl Albumin (3.4-5.0) gm/dl Globulin (2.5-4.0) gm/dl Albumin/Globulin Ratio (0.9-2) Urine Color Yellow Urine Appearance Clear (Clear) Urine pH 6.0 (4.5-7.5) Ur Specific [place] 1.021 (1.000-1.030) Urine Protein Trace H (Negative) Urine Glucose (UA) 1+ H (Negative) Urine Ketones Negative (Negative) Urine Blood Negative (Negative) Urine Nitrite Negative (Negative) Urine Bilirubin Negative (Negative) Urine Urobilinogen Negative (Negative) Ur Leukocyte Esterase 2+ H (Negative) Urine WBC (Auto) 10-30 H (0-5) /hpf Urine RBC (Auto) 0-4 (0-4) /hpf U Hyaline Cast (Auto) 1-5 (0-5) /lpf U Epithel Cells (Auto) >30 H (0-5) /lpf Urine Bacteria (Auto) Negative (Negative) Administered Medications Discontinued Medications Fentanyl Citrate (Fentanyl Citrate Pf 100 Mcg/2 Ml Vial) 50 mcg IV NOW STA Stop: 10/12/22 13:19 Last Admin: 10/12/22 13:25 Dose: 50 mcg Documented By: MARZENA Fentanyl Citrate (Fentanyl Citrate Pf 100 Mcg/2 Ml Vial) 50 mcg IV NOW STA Stop: 10/12/22 15:40 Last Admin: 10/12/22 15:53 Dose: 50 mcg Documented By: YOUNG Imaging Data Radiologist's Impression: Venous Doppler Study 10/12/22 13:18 US venous doppler LE LT CLINICAL HISTORY: Eval for DVT TECHNIQUE: Left lower extremity real-time compression venous ultrasound with Color Doppler imaging. Utilizing real-time ultrasonic imaging multiple real time high-resolution ultrasonic images with compression and noncompression maneuvers of the deep venous system in addition to color doppler imaging were performed from the common femoral vein through the proximal calf veins. COMPARISON: None available at the time of this dictation. FINDINGS/IMPRESSION: Nonocclusive thrombus is in the left popliteal vein as well as one of 2 peroneal veins. ACT 112: Negative or not required by law. Electronically signed by: Paulino Saha M.D. 10/12/2022 3:[address] 10/12/22 15:19 CT lumbar spine wo con CLINICAL HISTORY: low back pain TECHNIQUE: Multidetector row helical CT of the lumbar spine was performed without administration of intravenous contrast. Coronal and sagittal reformations were obtained. Automated dose lowering techniques and/or adjustment according to patient size were utilized for this exam. CT DOSE: 2213.79 mGy.cm Comparison: Comparison is made to MRI lumbar spine 09/02/2019 FINDINGS: For counting purposes, the last complete intervertebral disc space is considered L5-S1. No acute fractures are identified. Degenerative changes are noted in the visualized spine. Vertebral body alignment is within normal limits. Surrounding soft tissues are unremarkable. IMPRESSION: Degenerative changes without evidence of acute bony injury. ACT 112: Negative or not required by law. Electronically signed by: Paulino Saha M.D. 10/12/2022 4:[address] 10/12/22 15:19 CT pelvis wo con CLINICAL HISTORY: left hip pain TECHNIQUE: Helical axial images of the pelvis were obtained and displayed at 5 and 1 mm intervals. Automated dose lowering techniques and/or adjustment according to patient size were utilized for this exam. This exam was performed without intravenous contrast. COMPARISON: Comparison is made to CT abdomen pelvis 10/08/2021 FINDINGS: Bladder: Unremarkable. Partial visualization of right hydronephrosis and h ydroureter. Reproductive organs: Unremarkable. Bowel: Unremarkable. Lymph nodes Pelvic: Unremarkable. Mesenteric: Unremarkable. Peritoneum: Normal Vessels: Atherosclerotic calcifications are seen. Abdominal wall: Unremarkable. Bones: Degenerative changes in the visualized spine. No evidence of fracture or other acute abnormality. IMPRESSION: Degenerative changes without evidence of acute abnormality. In particular no fracture to explain left hip pain. ACT 112: Negative or not required by law. Electronically signed by: Paulino Saha M.D. 10/12/2022 4:34 PM Discharge Plan Visit Data Chief Complaint: Hip Pain Stated Complaint: LEG, HIP & LOWER BACK PAIN ED Provider: Ivon Parks Discharge Problem: Acute pain of left lower extremity, Acute deep vein thrombosis (DVT) of distal vein of left lower extremity Forms Stand Alone Forms: My [facility] [place] [employer] Prescriptions Prescriptions: No Action Lupron Depot (4 month) 30 mg syringe kit 30 mg IM Q16W Qty: 1 0RF glimepiride 1 mg tablet 1 mg PO DAILY Qty: 90 1RF metoprolol succinate 200 mg tablet extended release 24 hr 200 mg PO DAILY Qty: 90 3RF amlodipine 10 mg tablet 10 mg PO QAM Qty: 90 3RF lisinopril 20 mg tablet 20 mg PO DAILY Qty: 90 3RF omeprazole 20 mg tablet,disintegrat, delay rel 20 mg PO QAM Qty: 90 3RF atorvastatin 20 mg tablet 20 mg PO QAM Qty: 90 3RF oxycodone 5 mg tablet 5 mg PO Q4H PRN (Reason: Pain) sertraline 100 mg tablet 100 mg PO QAM Qty: 90 3RF prednisone 5 mg Tablet 5 mg PO BID abiraterone [Zytiga] 500 mg Tablet 1,000 mg PO QAM calcium carbonate-vitamin D3 [Calcium 500 + D] 500 mg(1,250mg) -200 unit Tablet 1 tab PO QAM acetaminophen [Tylenol Extra Strength] 500 mg Tablet 1,000 mg PO DIRECTED PRN (Reason: Pain) multivitamin with minerals Tablet 1 tab PO DAILY ondansetron 4 mg Tablet,Disintegrating 4 mg PO Q8H PRN (Reason: NAUSEA/VOMITING) Xgeva 120 mg/1.7 mL (70 mg/mL) Solution 120 mg SUBCUT DIRECTED triamcinolone acetonide 0.1 % Cream 1 applic TOPICAL DIRECTED Rx Instructions: APPLY BID FRIDAY THROUGH FRIDAY TO LEG DIRECTED. dexamethasone 6 mg tablet 6 mg PO QAM Referrals Referrals: Kings Rios, [Primary Care Provider] -
[2022-10-12 13:43] LABS: Basophils # (auto) 0.04 K/uL (0.00-0.20); Basophils % (auto) 0.5 %; Eosinophils % (auto) 1.4 %; Hematocrit (blood only) 42.9 % (42.0-52.0); Hemoglobin 14.3 g/dl (14.0-18.0); Immature Granulocytes # (auto) 0.18 K/uL (0.01-0.20); Immature Granulocytes % (auto) 2.4 %; Lymphocytes # (auto) 0.78 K/uL (1.20-3.40); Lymphocytes % (auto) 10.6 %; Mean Corpuscular Hemoglobin 31.3 pg (25.0-34.0); Mean Corpuscular Hgb Conc 33.3 g/dL (32.0-36.0); Mean Corpuscular Volume 93.9 fL (80.0-100.0); Mean Platelet Volume 9.9 fL (9.4-12.4); Monocytes # (auto) 0.61 K/uL (0.11-0.59); Monocytes % (auto) 8.3 %; Neutrophils # (auto) 5.65 K/uL (1.40-6.50); Neutrophils % (auto) 76.8 %; Platelet Count 129 K/uL (130-400); RDW Coefficient of Variation 13.2 % (11.5-14.5); RDW Standard Deviation 45.2 fL (36.4-46.3); Red Blood Count 4.57 M/uL (4.70-6.10); White Blood Count 7.36 K/ul (4.8-10.8)
[2022-10-12 13:56] LABS: Albumin Level 3.4 gm/dl (3.4-5.0); Bilirubin,Total 0.7 mg/dl (0.2-1.0); Calcium 8.1 mg/dl (8.6-10.3); Potassium 3.5 mmol/L (3.5-5.1)
[2022-10-12 14:02] LABS: Albumin Globulin Ratio 1.9 (0.9-2); BUN Creatinine Ratio 16.3 (10-20); Creatinine Clr Calc Pharmacy 85.8 ml/min; Est GFR (African American) 96.9 ml/min; Est GFR (Non-African American) 83.6 ml/min; Globulin 1.8 gm/dl (2.5-4.0); Total Protein 5.2 gm/dl (6.0-8.3)
[2022-10-12 14:08] LABS: Prothrombin Time 10.6 Seconds (9.0-12.0)
--- NOTE | 2022-10-12 15:02 | Ultrasound Report ---
US venous doppler LE LT CLINICAL HISTORY: Eval for DVT TECHNIQUE: Left lower extremity real-time compression venous ultrasound with Color Doppler imaging. U tilizing real-time ultrasonic imaging multiple real time high-resolution ultrasonic images with compr ession and noncompression maneuvers of the deep venous system in addition to color doppler imaging we re performed from the common femoral vein through the proximal calf veins. COMPARISON: None available at the time of this dictation. FINDINGS/IMPRESSION: Nonocclusive thrombus is in the left popliteal vein as well as one of 2 peroneal veins. ACT 112: Negative or not required by law. Electronically signed by: Paulino Saha M.D. 10/12/2022 3:01 PM
--- NOTE | 2022-10-12 16:32 | CT Scan Report ---
CT lumbar spine wo con CLINICAL HISTORY: low back pain TECHNIQUE: Multidetector row helical CT of the lumbar spine was performed without administration of i ntravenous contrast. Coronal and sagittal reformations were obtained. Automated dose lowering techniq ues and/or adjustment according to patient size were utilized for this exam. CT DOSE: 2213.79 mGy.cm Comparison: Comparison is made to MRI lumbar spine 09/02/2019 FINDINGS: For counting purposes, the last complete intervertebral disc space is considered L5-S1. No acute fractures are identified. Degenerative changes are noted in the visualized spine. Vertebral body alignment is within normal limits. Surrounding soft tissues are unremarkable. IMPRESSION: Degenerative changes without evidence of acute bony injury. ACT 112: Negative or not required by law. Electronically signed by: Paulino Saha M.D. 10/12/2022 4:31 PM
--- NOTE | 2022-10-12 16:36 | CT Scan Report ---
CT pelvis wo con CLINICAL HISTORY: left hip pain TECHNIQUE: Helical axial images of the pelvis were obtained and displayed at 5 and 1 mm intervals. Au tomated dose lowering techniques and/or adjustment according to patient size were utilized for this e xam. This exam was performed without intravenous contrast. COMPARISON: Comparison is made to CT abdomen pelvis 10/08/2021 FINDINGS: Bladder: Unremarkable. Partial visualization of right hydronephrosis and hydroureter. Reproductive organs: Unremarkable. Bowel: Unremarkable. Lymph nodes Pelvic: Unremarkable. Mesenteric: Unremarkable. Peritoneum: Normal Vessels: Atherosclerotic calcifications are seen. Abdominal wall: Unremarkable. Bones: Degenerative changes in the visualized spine. No evidence of fracture or other acute abnormali ty. IMPRESSION: Degenerative changes without evidence of acute abnormality. In particular no fracture to explain left hip pain. ACT 112: Negative or not required by law. Electronically signed by: Paulino Saha M.D. 10/12/2022 4:34 PM
[2022-10-12 17:11] LABS: Appearance Urine Clear (Clear); Bacteria Urine Automated Negative (Negative); Bilirubin Urine Negative (Negative); Blood Urine Negative (Negative); Color Urine Yellow; Epithelial Cell Urine Auto >30 /lpf (0-5); Glucose Urine UA 1+ (Negative); Ketones Urine Negative (Negative); Leukocyte Esterase Urine 2+ (Negative); Nitrite Urine Negative (Negative); Protein Urine Trace (Negative); RBC Urine Automated 0-4 /hpf (0-4); Specific Gravity Urine 1.021 (1.000-1.030); Urobilinogen Urine Negative (Negative)
--- NOTE | 2022-10-12 17:44 | History & Physical Report ---
Date of Service October 12, 2022 Assessment & Plan (1) Acute pain of left lower extremity: Plan: Weakness Patient unable to walk, with onset of left inner thigh and low back pain 2 days ago without injury or falls. Left lower quadrant and left inner thigh are tender to palpation. He is not anticoagulated and does not have a history of DVTs - Pt has a history of spinal stenosis with flares which feel similar. Saw Dr. Ray at [facility] [place] many years ago, but had not had surgery and was not felt to be a good candidate. Has had back injections with no benefit. Patient unable to stand due to severe pain in his proximal left leg and low back. No numbness or tingling. Does have history of prostate cancer, has not had urinary changes. No saddle anesthesia CK is negative/normal As patient is unable to ambulate at home or stand he is recommended for admission for evaluation of weakness, ambulatory dysfunction, and possible placement with current inability to perform IADLs CTpelvis: Degenerative changes, no fracture CTlumbar spine: Degenerative changes, no bony injury -Left lower extremity Doppler: Nonocclusive left popliteal thrombus. Additional nonocclusive thrombus noted in peroneal vein. These are not in the territory of his clinical pain. - Pain appears more localized, and is TTP. ?MSK injury. No numbness/tingling and strength is generally intact on exam, but patient has known history of spinal stenosis and flares that have felt similar and this is worse in the past. Lumbar MRI ordered. - PT/OT Tylenol ordered for pain control, patient has well-controlled pain while at rest but is significantly limited with any attempted ambulation or weightbearing Nonocclusive DVT - Had a history of recurrent severe hematuria with his prostate cancer and recurrent bleeding. Was told he should not be on any anticoagulants or antiplatelets, thsi has also been discussed 2/2 afib. As clot is non-occlusive ?chronic will defer anticoagulation on admit History of COVID-19 With discharge 09/27/2022 following COVID Patient was down titrated off BiPAP and progressed to discharge after treatment with steroids and antibiotics for superimposed possible aspiration pneumonia which were transition to Augmentin at time of discharge. A-fib Continue metoprolol Patient is not on anticoagulation at baseline due to history of gross hematuria and severe bleeding Type II DM Hold oral agents while inpatient Basal bolus weight-based goal BSG [id number] while inpatient Last A1c reasonably controlled with liberalized A1c goal of 8 Depression Continue sertraline Prostate cancer Patient on leuprolide, Xgeva. No acute change in management - On chronic pred 5mg. Continued DVT prophylaxis: SCDs 2/2 hx severe hematuria/bleeding CODE: Full Dispo: MEd/Surg (2) Acute deep vein thrombosis (DVT) of distal vein of left lower extremity: (3) Anxiety: (4) DMII (diabetes mellitus, type 2): (5) Atrial fibrillation: (6) Hypercholesterolemia: History of Present Illness Primary Care Provider: Kings Rios DO "Enio" reports he developed muscular pain in his legs. Very painful to pressure. Is not able to bear weight due to pain in his L leg. Very tender to palpation. Pain seems to go from back down the leg. Stops at the knee. No pain when laying flat on his back. Denies numbness and tingling. No saddle anesthesia. No urinary incontinence, no bladder incontience. No fevers or chills. No recent medication changes. Denies swelling. 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 No redness/warmth of the L leg. Ports he does have a history of spinal stenosis has had MRIs but is not sure when the last one of his back was. He notes that his current flare feels similar to when he has had spinal stenosis pain in the past but it has been several months. He was recommended to not have surgery in the past as he was a poor surgical candidate and it was not urgent at that time. He did have some epidural injections which he reports did not produce benefit. In general pain has been tolerated and is focused more on his prostate cancer. His pain started acutely 2 days ago without injury and he did not have any twisting or popping. He notes his left lumbar paraspinal is very tense and he has pain radiating down his left thigh but not past his knee. He does feel weak focally in the left, and has difficulty bearing weight. Has not followed up with Ortho regarding his stenosis in many years Medical History: Reviewed Medications: Reviewed Surgical History: Reviewed Family history: Reviewed Allergies: Reviewed Social History: Reviewed Code Status: Full Allergies Allergy/AdvReac Type Severity Reaction Status Date / Time cat dander Allergy Severe CAN CAUSE Verified 08/15/23 00:30 ASTHMA ATTACK-itchy eyes, congestion Home Medications Medication Instructions Recorded Confirmed Type abiraterone 500 mg tablet (Zytiga) 1,000 mg PO QAM 07/13/18 10/12/22 History calcium carbonate 500 mg-vitamin 1 tab PO QAM 07/13/18 10/12/22 History D3 5 mcg (200 unit) tablet (Calcium 500 + D) prednisone 5 mg tablet 5 mg PO BID 07/13/18 10/12/22 History leuprolide (4 month) 30 mg (4 30 mg IM Q16W #1 ea 07/28/19 10/12/22 Rx month) intramuscular syringe kit (Lupron Depot) sertraline 100 mg tablet 100 mg PO QAM #90 tabs 09/01/19 10/12/22 Rx oxycodone 5 mg tablet 5 mg PO Q4H PRN Pain 03/16/20 10/12/22 History glimepiride 1 mg tablet 1 mg PO DAILY #90 tabs 05/22/22 10/12/22 Rx metoprolol succinate 200 mg 200 mg PO DAILY #90 tabs 07/15/22 10/12/22 Rx tablet,extended release 24 hr amlodipine 10 mg tablet 10 mg PO QAM #90 tabs 07/18/22 10/12/22 Rx lisinopril 20 mg tablet 20 mg PO DAILY #90 tabs 07/23/22 10/12/22 Rx omeprazole 20 mg delayed 20 mg PO QAM #90 tabs 09/03/22 10/12/22 Rx release,disintegrating tablet atorvastatin 20 mg tablet 20 mg PO QAM #90 tabs 09/18/22 10/12/22 Rx acetaminophen 500 mg tablet 1,000 mg PO DIRECTED PRN Pain 09/24/22 10/12/22 History (Tylenol Extra Strength) denosumab 120 mg/1.7 mL (70 mg/mL) 120 mg subcut DIRECTED 09/24/22 10/12/22 History subcutaneous solution (Xgeva) multivitamin with minerals 1 tab PO DAILY 09/24/22 10/12/22 History ondansetron 4 mg disintegrating 4 mg PO Q8H PRN NAUSEA/VOMITING 09/24/22 10/12/22 History tablet triamcinolone acetonide 0.1 % 1 applic topical DIRECTED 09/24/22 10/12/22 History topical cream dexamethasone 6 mg tablet 6 mg PO QAM 10/12/22 10/12/22 History Past Med/Surg History Medical History Androgen-induced osteoporosis Chronic steroid use PROSTATE CANCER Fatigue Hydronephrosis of right kidney Hyperlipidemia IBS (irritable bowel syndrome) Insomnia Resolved Kidney stones Osteoarthritis Prostate cancer (11/03/14) Prostate nodule Psychosis Had hx of depression with psychotic episode - resolved Renal insufficiency Sacral lesion Ureter injury OBSTRUCTION OF RT URETER 2/2 PROSTATE CA Urinary frequency Urinary incontinence Urge incontinence Urinary retention Resolved Urinary tract infection Resolved Surgical History History of cataract surgery 2018 - Bilat History of colonoscopy 2011 (due in 2021) History of prostate biopsy 2014 History of tonsillectomy as a child History of tooth extraction in age 19's S/P TURP 2014 Family History Mother , Passed age 60 of sepsis Gallbladder disease Mental disorder Psychological disorder Father , Passed age 89 of sepsis (infected bladder stones) Congestive heart failure Bladder stones Prostate cancer no treatment needed Brother Heart failure Kidney stones Kidney disease Bladder cancer, Onset Age: 75 Myocardial infarction Grandmother (Paternal) , Passed age 93 of old age Breast cancer, Onset Age: 40 double mastectomy and then did well Sister , Passed age 2 of pneumonia No problems noted. Other Has no children Denies family history of Colon cancer Ovarian cancer Social History Smoking Status: Never smoker Tobacco Type: Cigarettes Age Started Using Tobacco: 20; Age Quit Using Tobacco: 39; packs per day: 0.5; Cigarettes Per Day: 10; Second Hand Exposure: No; Do You Dip or Chew Tobacco: No; Hx Alcohol Use: No Hx Substance Use: No Preferred Language: Citizen Of [place] Communication Ability: Effective Communication Tools: Other Visual Impairment: Limited Hearing Ability: Normal Registered Nurse Cardiac Required: No Beliefs That Will Affect Care: None marital status: Current Living Situation: Family Current Living Situation Comment: LIVES W/ OLIVER current occupational status: retired 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 NAD. Cooperative. HEENT: Atraumatic, normocephalic. PERLAA. Vision/hearing intact Pulm: CTAB A&P. -wheezes, -rales, -rhonchi. Symmetrical chest rise. No increased work of breathing. No respiratory distress. Cardiac: RRR, -mrg. Radial pulses intact and symmetrical. Abdominal: Nontender, nondistended, soft. BS present. Ext: L anterior thigh and L lumbar paraspinal muscles all tense and TTP. Ankle dorsi/plantar flexion 5/5. Sensation to soft cinthia h intact in legs bilaterally. No saddle anesthesia. Hip flexion 4/5 L 5/5 R. L hip flexion fatigues easily. No overlying erythema/warmth of the leg or back. Results & Data Results & Data Vital Signs (Past 12 Hours) Vital Signs Temp Pulse Pulse Resp BP BP Pulse Ox 10/12/22 16:00 88 17 146/99 H 94 10/12/22 14:25 86 18 132/83 93 10/12/22 13:00 37.1 C 92 H 18 141/96 H 94 O2 Del Method 10/12/22 16:00 Room Air 10/12/22 14:25 Room Air 10/12/22 13:00 Room Air PG Care Time/CCT Total # of Minutes Spent Total Time Spent with Patient: Total time spent is greater than 50% in coordination of care (as documented) at patient's floor/unit and/or counseling patient: Coding Level of Care Code 93472 INT INP/OBS CARE 2/55MIN Diagnoses Acute pain of left lower extremity M79.605 Acute deep vein thrombosis (DVT) of distal vein of left lower extremity I82.4Z2 Anxiety F41.9 DMII (diabetes mellitus, type 2) E11.9 Atrial fibrillation I48.91 Hypercholesterolemia E78.00
[2022-10-12] MEDS ORDERED: DEXTROSE 50% 50 ML SYRINGE IV PRN (20:51)
[2022-10-12] MEDS ORDERED: GLUCOSE 40% GEL 15 GM TUBE PO PRN (20:51)
[2022-10-12] MEDS ORDERED: POLYETHYLENE (MIRALAX) 17 GM PACK PO PRN (20:51)
[2022-10-12] MEDS ORDERED: GLUCAGON FOR INJ 1 MG VIAL SQ PRN (20:51)
[2022-10-12] MEDS ORDERED: CARBOHYDRATES FOR HYPOGLYCEMIA PO PRN (20:51)
[2022-10-12] MEDS ORDERED: ACETAMINOPHEN 325 MG TAB PO PRN (20:51)
[2022-10-12] MEDS ORDERED: GLUCOSE 10 TAB/TUBE PO PRN (20:51)
[2022-10-12] MEDS ORDERED: ONDANSETRON 4 MG OD TAB PO PRN (20:51)
[2022-10-12] MEDS: INSULIN ASPART PER UNIT CHARGE SC SCH (21:57)
[2022-10-12] MEDS: oxyCODONE HCL IR 5 MG TAB (IMMEDIATE RELEASE) PO PRN (21:57)
[2022-10-12] MEDS: predniSONE 5 MG TAB PO SCH (22:21)
[2022-10-12] MEDS ORDERED: MoRPHine SULFATE 2 MG/ML CARP IV STA (23:00)
[2022-10-13] MEDS: MICONAZOLE NITRATE POWDER 85 GM EXT PRN ×2 (06:06→20:43)
[2022-10-13 08:02] LABS: Basophils # (auto) 0.03 K/uL (0.00-0.20); Basophils % (auto) 0.4 %; Eosinophils # (auto) 0.04 K/uL (0.00-0.50); Eosinophils % (auto) 0.6 %; Hematocrit (blood only) 41.8 % (42.0-52.0); Hemoglobin 14.1 g/dl (14.0-18.0); Immature Granulocytes # (auto) 0.15 K/uL (0.01-0.20); Immature Granulocytes % (auto) 2.1 %; Lymphocytes # (auto) 0.88 K/uL (1.20-3.40); Lymphocytes % (auto) 12.4 %; Mean Corpuscular Hemoglobin 31.4 pg (25.0-34.0); Mean Corpuscular Hgb Conc 33.7 g/dL (32.0-36.0); Mean Corpuscular Volume 93.1 fL (80.0-100.0); Mean Platelet Volume 9.8 fL (9.4-12.4); Monocytes # (auto) 0.62 K/uL (0.11-0.59); Monocytes % (auto) 8.7 %; Neutrophils # (auto) 5.37 K/uL (1.40-6.50); Neutrophils % (auto) 75.8 %; Platelet Count 126 K/uL (130-400); RDW Standard Deviation 44.3 fL (36.4-46.3); Red Blood Count 4.49 M/uL (4.70-6.10); White Blood Count 7.09 K/ul (4.8-10.8)
[2022-10-13] MEDS: INSULIN ASPART PER UNIT CHARGE SC SCH ×4 (08:39→20:41)
[2022-10-13] MEDS: amLODIPine BESYLATE 5 MG TAB PO SCH (08:40)
[2022-10-13] MEDS: PANTOprazole 40 MG TAB PO SCH (08:40)
[2022-10-13] MEDS: ATORVASTATIN 20 MG TAB PO SCH (08:40)
[2022-10-13] MEDS: lisinopril 20 MG TAB PO SCH (08:40)
[2022-10-13] MEDS: SERTRALINE HCL 100 MG TABLET PO SCH (08:40)
[2022-10-13] MEDS: predniSONE 5 MG TAB PO SCH ×2 (08:41→20:37)
[2022-10-13] MEDS: METOPROLOL SUCC 50MG EXT REL TAB PO SCH (08:41)
[2022-10-13 09:30] LABS: BUN Creatinine Ratio 14.1 (10-20); Calcium 8.1 mg/dl (8.6-10.3); Creatinine Clr Calc Pharmacy 90.3 ml/min; Est GFR (African American) 100.9 ml/min; Est GFR (Non-African American) 87.1 ml/min; Potassium 4.3 mmol/L (3.5-5.1)
--- NOTE | 2022-10-13 12:50 | Hospitalist Progress Note ---
Date of Service October 13, 2022 Assessment & Plan (1) Acute pain of left lower extremity: Plan: Weakness Patient presents to the hospital on account of difficulty ambulating, Patient unable to walk, with onset of left inner thigh and low back pain 2 days prior to presentation without injury or falls. - Pt has a history of spinal stenosis with flares which feel similar. Saw Dr. Ray at [facility] [place] many years ago, but had not had surgery and was not felt to be a good candidate. Has had back injections with no benefit. Patient unable to stand due to severe pain in his proximal left leg and low back. No numbness or tingling. Does have history of prostate cancer, has not had urinary changes. No saddle anesthesia CK is negative/normal As patient is unable to ambulate at home or stand he is recommended for admission for evaluation of weakness, ambulatory dysfunction, and possible placement with current inability to perform IADLs -CTpelvis: Degenerative changes, no fracture -CTlumbar spine: Degenerative changes, no bony injury -Left lower extremity Doppler: Nonocclusive left popliteal thrombus. Additional nonocclusive thrombus noted in peroneal vein. These are not in the territory of his clinical pain. - MRI lumbar has been done, result pending -Continue PT/OT, pain conytrol with oxycodone and IR oxycontin for break through Nonocclusive DVT - Had a history of recurrent severe hematuria with his prostate cancer and recurrent bleeding. Was told he should not be on any anticoagulants or antiplatelets, this has also been discussed 2/2 afib. As clot is non-occlusive ?chronic will defer anticoagulation on admit History of COVID-19 With discharge 09/27/2022 following COVID Patient was down titrated off BiPAP and progressed to discharge after treatment with steroids and antibiotics for superimposed possible aspiration pneumonia which were transition to Augmentin at time of discharge. A-fib Continue metoprolol Patient is not on anticoagulation at baseline due to history of gross hematuria and severe bleeding Type II DM Hold oral agents while inpatient Basal bolus weight-based goal BSG [id number] while inpatient Last A1c reasonably controlled with liberalized A1c goal of 8 Depression Continue sertraline Prostate cancer Patient on leuprolide, Xgeva. No acute change in management - On chronic pred 5mg. Continued DVT prophylaxis: SCDs 2/2 hx severe hematuria/bleeding CODE: Full Dispo: MEd/Surg (2) Acute deep vein thrombosis (DVT) of distal vein of left lower extremity: (3) Anxiety: (4) DMII (diabetes mellitus, type 2): (5) Atrial fibrillation: (6) Hypercholesterolemia: Admission and Anticipated Discharge Date Admission Date: October 12, 2022 Subjective patient seen and examined, still has some left thigh pain and difficulty lifting his leg up Review of Systems Review of Systems: All systems reviewed are negative, apart from the ones contained in the history. Physical Exam Physical Exam: The patient is awake, alert and oriented 3, well developed and well nourished, normocephalic and atraumatic, lying in bed and in no acute distress. HEENT--PERRL, EOMI, mucous membranes and oropharynx mildly dry Neck--supple. No JVD. No bruits. Thyroid normal, trachea midline, no adenopathy. Heart--normal S1 and S2. No murmurs, rubs or gallops. Lungs--clear bilaterally, no respiratory distress, no accessory muscle use. Abdomen--normal bowel sounds and soft. Mild epigastric and left sided abdominal pain Extremities--no cyanosis or clubbing. No edema. Dermatologic--normal skin turgor, normal color, no abnormal lymph nodes, no rash. Neurologic--cranial nerves II through XII grossly intact. Rheumatologic--normal range of motion. Psychiatric--normal affect. Results & Data Results & Data Vital Signs (Past 12 Hours) Vital Signs Temp Pulse Resp BP Pulse Ox O2 Del Method 10/13/22 08:20 Room Air 10/13/22 08:40 89 112/79 10/13/22 07:03 98.2 F 89 18 114/79 94 Room Air PG Care Time/CCT Total # of Minutes Spent Total Time Spent with Patient: Total time spent is greater than 50% in coordination of care (as documented) at patient's floor/unit and/or counseling patient: Coding Level of Care Code 47431 SUB INP/OBS CARE 2/35MIN Diagnoses Acute pain of left lower extremity M79.605 Acute deep vein thrombosis (DVT) of distal vein of left lower extremity I82.4Z2 Anxiety F41.9 DMII (diabetes mellitus, type 2) E11.9 Atrial fibrillation I48.91 Hypercholesterolemia E78.00 Time Spent (min) 35
[2022-10-13] MEDS ORDERED: oxyCODONE HCL 10 MG TABCR (OxyCONTIN) PO SCH (13:00)
[2022-10-13] MEDS: oxyCODONE HCL 10 MG TABCR (OxyCONTIN) PO SCH ×2 (13:42→20:37)
[2022-10-13] MEDS: ABIRATERONE ACETATE PO SCH (13:42)
--- NOTE | 2022-10-13 14:10 | Magnetic Resonance Report ---
MRI OF THE LUMBAR SPINE WITHOUT IV CONTRAST CLINICAL HISTORY: Chronic low back pain. Left lower extremity radiculopathy. COMPARISON STUDY: CT scan of the lumbar spine dated 10/12/2022. MRI of lumbar spine dated 09/02/2019. TECHNIQUE: MRI of the lumbar spine is performed utilizing various T1 and T2-weighted sequences in the axial and sagittal planes. IV contrast was not administered for this examination. The examination is modestly degraded by motion artifact as well as by spinal scoliosis. FINDINGS: Lumbar spine: Vertebral body height and alignment are maintained throughout the lumbar spine. There i s [id number] lumbar levocurvature centered at L3-L4. Large anterior and lateral marginal osteop hytes are seen throughout. The transverse and spinous processes appear intact. There is no evidence o f spondylolysis. No destructive bony lesion is seen. Chronic degenerative endplate changes noted at s everal levels. There is mild endplate edema at L3-L4. Intervertebral discs: Disc desiccation and loss of height is seen throughout the lumbar spine. Loss o f height is moderate to severe at L3-L4, L4-L5, and L5-S1. Spinal cord: The visualized spinal cord is normal in morphology and signal intensity. The conus medul sim terminates at the level of L1. The nerve roots of the cauda equina are normal in morphology. L1-L2: Mild facet arthropathy is of no consequence. The central canal and neural foramina are patent. L2-L3: There is broad-based posterior disc bulge with annular fissure. This abuts the transiting nerv e roots. In conjunction with hypertrophy of the ligamentum flavum, there is mild central canal stenos is at this level with a minimum AP canal diameter of 7 mm. Lateral disc bulges contribute to bilatera l subarticular stenosis. Facet arthropathy is of no consequence. The neural foramina are patent. L3-L4: There is broad-based posterior disc bulge. This impinges in the transiting nerve roots. In con junction with hypertrophy of the ligamentum flavum, there is moderate to severe central canal stenosi s at this level with a minimum AP diameter of 5 mm. Large lateral disc bulges contribute to bilateral subarticular stenosis and likely impinge in the exiting bilateral L3 nerve roots. In conjunction wit h facet arthropathy, there is severe left and moderate right neural foraminal stenosis. There is a la rge far left lateral disc extrusion seen on axial image #14. L4-L5: There is broad-based posterior disc bulge with annular fissure. This impinges in the transitin g nerve roots. In conjunction with hypertrophy of the ligamentum flavum, there is severe central edward l stenosis at this level with a minimum AP diameter of 4 mm. Lateral disc bulges contribute to severe bilateral subarticular stenosis and impinge in the exiting bilateral L4 nerve roots. In conjunction with facet arthropathy, there is severe bilateral neural foraminal stenosis. There is a large far lef t lateral disc extrusion seen on axial image #18. L5-S1: There is broad-based posterior disc bulge with annular fissure. This abuts the transiting nerv e roots. There is no significant acquired compromise of the central canal at this level. Epidural lip omatosis is seen at L5-S1. There is a large right lateral disc bulge which contributes to subarticula r stenosis and impinges in the exiting right L5 nerve root. Milder lateral disc bulge is seen on the right. In conjunction with facet arthropathy, there is severe right and moderate left neural foramina l stenosis. Sacrum: The visualized sacrum is normal in morphology and signal intensity. A 9 mm Tarlov cyst is not ed at S2-S3. Soft tissues: There is mild edema within the posterior paraspinous musculature at L5-S1. There is mil d fatty atrophy of the paraspinous muscles. Severe right-sided hydronephrosis is similar to previous with cortical atrophy of the right kidney. IMPRESSION: 1. Advanced lumbosacral spondylosis and scoliosis as above with multilevel acquired compromise of the central canal. See discussion for detailed level by level analysis. 2. No destructive bony process is seen. 3. Mild nonspecific edema is noted within the paraspinous musculature at L5-S1. 4. Severe right-sided hydronephrosis with cortical atrophy of the right kidney, similar to previous. Dictated: 10/13/2022 10:19 AM Transcribed: 10/13/2022 10:43 AM Urmila [id number] Jocelyn [id number] Electronically signed by: Jesus Alberto Briones M.D. 10/13/2022 2:09 PM
[2022-10-14] MEDS: oxyCODONE HCL IR 5 MG TAB (IMMEDIATE RELEASE) PO PRN ×2 (02:05→14:40)
[2022-10-14] MEDS: ABIRATERONE ACETATE PO SCH (06:35)
[2022-10-14 07:31] LABS: Basophils # (auto) 0.03 K/uL (0.00-0.20); Basophils % (auto) 0.4 %; Calcium 7.8 mg/dl (8.6-10.3); Creatinine Clr Calc Pharmacy 74.9 ml/min; Eosinophils # (auto) 0.06 K/uL (0.00-0.50); Eosinophils % (auto) 0.8 %; Est GFR (African American) 90.3 ml/min; Est GFR (Non-African American) 77.9 ml/min; Hematocrit (blood only) 40.8 % (42.0-52.0); Immature Granulocytes # (auto) 0.19 K/uL (0.01-0.20); Immature Granulocytes % (auto) 2.5 %; Lymphocytes # (auto) 0.91 K/uL (1.20-3.40); Lymphocytes % (auto) 11.9 %; Mean Corpuscular Hemoglobin 31.3 pg (25.0-34.0); Mean Corpuscular Hgb Conc 34.3 g/dL (32.0-36.0); Mean Corpuscular Volume 91.3 fL (80.0-100.0); Mean Platelet Volume 10.3 fL (9.4-12.4); Monocytes # (auto) 0.64 K/uL (0.11-0.59); Monocytes % (auto) 8.4 %; Neutrophils # (auto) 5.83 K/uL (1.40-6.50); Platelet Count 129 K/uL (130-400); Potassium 3.7 mmol/L (3.5-5.1); RDW Standard Deviation 42.6 fL (36.4-46.3); Red Blood Count 4.47 M/uL (4.70-6.10); White Blood Count 7.66 K/ul (4.8-10.8)
[2022-10-14] MEDS: INSULIN ASPART PER UNIT CHARGE SC SCH ×4 (08:32→20:57)
[2022-10-14] MEDS: ATORVASTATIN 20 MG TAB PO SCH (08:33)
[2022-10-14] MEDS: PANTOprazole 40 MG TAB PO SCH (08:33)
[2022-10-14] MEDS: SERTRALINE HCL 100 MG TABLET PO SCH (08:33)
[2022-10-14] MEDS: predniSONE 5 MG TAB PO SCH (08:33)
[2022-10-14] MEDS: amLODIPine BESYLATE 5 MG TAB PO SCH (08:33)
[2022-10-14] MEDS: METOPROLOL SUCC 50MG EXT REL TAB PO SCH (08:34)
[2022-10-14] MEDS: lisinopril 20 MG TAB PO SCH (08:34)
[2022-10-14] MEDS: TRIAMCINOLONE ACET 0.1% CR 15 GM TUBE TOP SCH ×2 (08:35→20:59)
[2022-10-14] MEDS: oxyCODONE HCL 10 MG TABCR (OxyCONTIN) PO SCH ×2 (08:37→20:59)
[2022-10-14] MEDS: GLIMEPIRIDE 2 MG TAB PO SCH (11:23)
[2022-10-14] MEDS: methylPREDNISolone 40 MG in SYRINGE 0 ML IV SCH ×2 (12:37→20:58)
--- NOTE | 2022-10-14 16:17 | Hospitalist Progress Note ---
Date of Service October 14, 2022 Assessment & Plan (1) Acute pain of left lower extremity: Plan: Exacerbation of lumbar pain with left lower extremity lumbar radiculopathy. Parenteral steroid therapy while hospitalized. We will place oral prednisone on hold while on Solu-Medrol. Pain control measures. Lumbar MRI scan results noted. Continue OT and PT (2) Acute deep vein thrombosis (DVT) of distal vein of left lower extremity: Plan: Nonocclusive. No systemic anticoagulation at this time (3) Anxiety: Plan: Stable. Continue current medical manage (4) DMII (diabetes mellitus, type 2): Plan: ADA diet. Sliding scale coverage as needed. Continue current medical management (5) Atrial fibrillation: Plan: Rate control measures. Not on systemic anticoagulation (6) Hypercholesterolemia: Plan: Stable. Continue statin therapy Plan anticipate eventual discharge to home this week. Admission and Anticipated Discharge Date Admission Date: October 14, 2022 Subjective Alert and oriented. No distress. Lumbar spine MRI scan reveals diffuse deg enerative disc disease with disc herniations and lumbar stenosis. Oral prednisone switched to parenteral steroid therapy while admitted. Glimepiride therapy restarted which she takes at home. OT and PT assessments requested Review of Systems Review of Systems: Constitutional-no fever or chills ENT-no blurred vision, no double vision, no epistaxis, no sore throat Respiratory-no cough, no wheezing, no shortness of breath Cardiac-no palpitations, no chest pain, no syncope GI-no nausea, vomiting, diarrhea, melena, hematochezia -no urinary retention, no urinary incontinence, no dysuria, no hematuria Musculoskeletal-exacerbation lumbar pain Skin-no bruising, no rashes, no pruritus Neuro-left leg weakness Psych-no depression, no anxiety Physical Exam Physical Exam: General-alert and oriented x3, no fevers, no chills HEENT-head atraumatic and normocephalic, pupils equal and reactive to light, extraocular muscles intact Neck-no lymphadenopathy or thyromegaly, trachea midline Chest-clear to auscultation percussion. No rales wheezing or rhonchi Cardiac-regular rate and rhythm, normal S1 and S2, no murmurs Abdomen-normal bowel sounds, nontender, no hepatosplenomegaly Extremities-left leg weakness Neuro-cranial nerves II through XII intact, motor and sensory function within normal limits, strength asymmetrical with left lower extremity weakness Psych-normal affect, normal mood Results & Data Results & Data Vital Signs (Past 12 Hours) Vital Signs Temp Pulse Resp BP Pulse Ox O2 Del Method 10/14/22 07:20 Room Air 10/14/22 07:12 36.9 C 89 18 130/88 95 Room Air Laboratory Results 10/14/22 06:20 10/14/22 06:20 PG Care Time/CCT Total # of Minutes Spent Total Time Spent with Patient: Total time spent is greater than 50% in coordination of care (as documented) at patient's floor/unit and/or counseling patient: Coding Level of Care Code 74594 SUB INP/OBS CARE 3/50MIN Diagnoses Acute pain of left lower extremity M79.605 Acute deep vein thrombosis (DVT) of distal vein of left lower extremity I82.4Z2 Anxiety F41.9 DMII (diabetes mellitus, type 2) E11.9 Atrial fibrillation I48.91 Hypercholesterolemia E78.00
[2022-10-14] MEDS: MICONAZOLE NITRATE POWDER 85 GM EXT PRN (20:59)
[2022-10-15] MEDS: methylPREDNISolone 40 MG in SYRINGE 0 ML IV SCH ×3 (04:11→20:10)
[2022-10-15] MEDS: ABIRATERONE ACETATE PO SCH (05:53)
[2022-10-15 06:45] LABS: Basophils # (auto) 0.01 K/uL (0.00-0.20); Basophils % (auto) 0.1 %; Hematocrit (blood only) 42.7 % (42.0-52.0); Hemoglobin 14.5 g/dl (14.0-18.0); Immature Granulocytes # (auto) 0.22 K/uL (0.01-0.20); Immature Granulocytes % (auto) 2.2 %; Lymphocytes % (auto) 7.9 %; Mean Corpuscular Hemoglobin 31.5 pg (25.0-34.0); Mean Corpuscular Volume 92.6 fL (80.0-100.0); Monocytes # (auto) 0.33 K/uL (0.11-0.59); Monocytes % (auto) 3.3 %; Neutrophils # (auto) 8.77 K/uL (1.40-6.50); Neutrophils % (auto) 86.5 %; Platelet Count 137 K/uL (130-400); RDW Standard Deviation 44.3 fL (36.4-46.3); Red Blood Count 4.61 M/uL (4.70-6.10); White Blood Count 10.13 K/ul (4.8-10.8)
[2022-10-15 07:08] LABS: Est GFR (African American) 84.8 ml/min
[2022-10-15 07:09] LABS: BUN Creatinine Ratio 26.3 (10-20); Calcium 8.1 mg/dl (8.6-10.3); Creatinine Clr Calc Pharmacy 71.1 ml/min; Est GFR (Non-African American) 73.2 ml/min
[2022-10-15] MEDS: PANTOprazole 40 MG TAB PO SCH (08:43)
[2022-10-15] MEDS: GLIMEPIRIDE 2 MG TAB PO SCH (08:43)
[2022-10-15] MEDS: SERTRALINE HCL 100 MG TABLET PO SCH (08:43)
[2022-10-15] MEDS: lisinopril 20 MG TAB PO SCH (08:43)
[2022-10-15] MEDS: ATORVASTATIN 20 MG TAB PO SCH (08:43)
[2022-10-15] MEDS: oxyCODONE HCL 10 MG TABCR (OxyCONTIN) PO SCH ×2 (08:43→20:10)
[2022-10-15] MEDS: METOPROLOL SUCC 50MG EXT REL TAB PO SCH (08:43)
[2022-10-15] MEDS: TRIAMCINOLONE ACET 0.1% CR 15 GM TUBE TOP SCH ×2 (08:44→20:11)
[2022-10-15] MEDS: amLODIPine BESYLATE 5 MG TAB PO SCH (08:44)
[2022-10-15] MEDS: INSULIN ASPART PER UNIT CHARGE SC SCH ×4 (09:03→20:49)
--- NOTE | 2022-10-15 13:55 | Hospitalist Progress Note ---
Date of Service October 15, 2022 Assessment & Plan (1) Acute pain of left lower extremity: Plan: Exacerbation of lumbar pain with left lower extremity lumbar radiculopathy. Parenteral steroid therapy day 2. Prednisone on hold while on Solu-Medrol. Orthopedic spine consultation requested. Pain management consultation requested. Lumbar MRI scan results noted. Continue OT and PT (2) Acute deep vein thrombosis (DVT) of distal vein of left lower extremity: Plan: Nonocclusive. No systemic anticoagulation at this time (3) Anxiety: Plan: Stable. Continue current medical manage (4) DMII (diabetes mellitus, type 2): Plan: ADA diet. Sliding scale coverage as needed. Continue current medical management (5) Atrial fibrillation: Plan: Rate control measures. Not on systemic anticoagulation (6) Hypercholesterolemia: Plan: Stable. Continue statin therapy Plan To be determined Admission and Anticipated Discharge Date Admission Date: October 14, 2022 Subjective Alert and oriented. Day 2 of parenteral steroid therapy. Not much improvement yet. We will consult orthopedic spine surgery to see if surgical intervention is an option. Pain management consultation also requested. Glucose is moderately elevated as expected with parenteral steroid therapy. Review of Systems Review of Systems: Constitutional-no fever or chills ENT-no blurred vision, no double vision, no epistaxis, no sore throat Respiratory-no cough, no wheezing, no shortness of breath Cardiac-no palpitations, no chest pain, no syncope GI-no nausea, vomiting, diarrhea, melena, hematochezia -no urinary retention, no urinary incontinence, no dysuria, no hematuria Musculoskeletal-exacerbation lumbar pain Skin-no bruising, no rashes, no pruritus Neuro-left leg weakness Psych-no depression, no anxiety Physical Exam Physical Exam: General-alert and oriented x3, no fevers, no chills HEENT-head atraumatic and normocephalic, pupils equal and reactive to light, extraocular muscles intact Neck-no lymphadenopathy or thyromegaly, trachea midline Chest-clear to auscultation percussion. No rales wheezing or rhonchi Cardiac-regular rate and rhythm, normal S1 and S2, no murmurs Abdomen-normal bowel sounds, nontender, no hepatosplenomegaly Extremities-left leg weakness Neuro-cranial nerves II through XII intact, motor and sensory function within normal limits, strength asymmetrical with left lower extremity weakness Psych-normal affect, normal mood Results & Data Results & Data Vital Signs (Past 12 Hours) Vital Signs Temp Pulse Resp BP Pulse Ox O2 Del Method 10/15/22 08:15 Room Air 10/15/22 07:31 36.7 C 98 H 18 139/101 H 97 Room Air Laboratory Results 10/15/22 05:57 10/15/22 05:57 PG Care Time/CCT Total # of Minutes Spent Total Time Spent with Patient: Total time spent is greater than 50% in coordination of care (as documented) at patient's floor/unit and/or counseling patient: Coding Level of Care Code 88178 SUB INP/OBS CARE 3/50MIN Diagnoses Acute pain of left lower extremity M79.605 Acute deep vein thrombosis (DVT) of distal vein of left lower extremity I82.4Z2 Anxiety F41.9 DMII (diabetes mellitus, type 2) E11.9 Atrial fibrillation I48.91 Hypercholesterolemia E78.00
[2022-10-15] MEDS: oxyCODONE HCL IR 5 MG TAB (IMMEDIATE RELEASE) PO PRN (17:53)
[2022-10-16] MEDS: methylPREDNISolone 40 MG in SYRINGE 0 ML IV SCH ×3 (04:47→20:27)
[2022-10-16] MEDS: ABIRATERONE ACETATE PO SCH (06:18)
[2022-10-16] MEDS: GLIMEPIRIDE 2 MG TAB PO SCH (08:45)
[2022-10-16] MEDS: lisinopril 20 MG TAB PO SCH (08:45)
[2022-10-16] MEDS: METOPROLOL SUCC 50MG EXT REL TAB PO SCH (08:45)
[2022-10-16] MEDS: amLODIPine BESYLATE 5 MG TAB PO SCH (08:45)
[2022-10-16] MEDS: ATORVASTATIN 20 MG TAB PO SCH (08:45)
[2022-10-16] MEDS: SERTRALINE HCL 100 MG TABLET PO SCH (08:45)
[2022-10-16] MEDS: PANTOprazole 40 MG TAB PO SCH (08:45)
[2022-10-16] MEDS: TRIAMCINOLONE ACET 0.1% CR 15 GM TUBE TOP SCH ×2 (08:46→20:28)
[2022-10-16] MEDS: MICONAZOLE NITRATE POWDER 85 GM EXT PRN (08:46)
--- NOTE | 2022-10-16 08:46 | Pain Management Consultation ---
Date of Consultation October 16, 2022 Assessment & Plan (1) Acute pain of left lower extremity: (2) Ambulatory dysfunction: (3) Spinal stenosis: (4) Lumbar spondylosis: Plan 1. Patient with acute on chronic left greater than right thigh pain and ambulatory dysfunction secondary to weakness associated with pain during ambulation. Etiologies were discussed. Patient has significant lumbar spondylosis with multilevel multifactorial lumbar spinal canal stenosis and neuroforaminal stenosis likely contributing to his presenting pain complaints. He has a poor candidate for interventional treatment due to history of prior failures and therefore will defer interventional treatment. 2. Patient may continue with Oxy IR for breakthrough pain and OxyContin as prescribed without change in recommendation 3. Will add baclofen 10 mg 3 times daily. Side effects versus benefits dis cussed. 4. Consider adding gabapentin-prefer he discuss further with primary service due to his history of renal atrophy/renal insufficiency to ensure safety of use Thank you for allowing us to participate in the care of Mr. Golden History of Present Illness Reason for Consultation: Intractable left lower extremity radicular pain with weakness and ambulatory dysfunction Requesting Physician: Luiz Parish MD Attending Physician: Luiz Parish MD History of Present Illness Mr. Golden is a 76-year-old white male who was admitted with left lower extremity radicular pain/weakness and ambulatory dysfunction. The patient reports a chronic history of low back and lower extremity radicular pain over many years with increasing left thigh region pain over the past 1 year. Patient indicates that his pain is a 0/10 in the sitting or supine position. His pain can escalate to a 9/10 with any attempted ambulatory activity. He reports that anytime he puts any weight on his leg he has significant pain in the left lateral and anterior thigh stopping at the level of the knee. He has no radicular pattern pain below the level of the knee. He has similar but much less severe pain on the right side. He has minimal axial low back pain. He denies any recent falls or injuries. He further describes general tenderness to palpation over the entire left thigh region. Patient has history of prostate cancer and resultant right-sided ureter injury with renal insufficiency/h ydronephrosis of the right kidney. Patient reports a change in severity of pain in his ambulatory dysfunction led to emergent evaluation a few days ago. He has prior history of multiple corticosteroid injections into the lumbar spine with Dr. Ray over the past few years without relief of symptoms. He has not met with a spine surgeon in the past. He was told by Dr. Ray that he was not a surgical candidate previously. The patient reports prior response to oral steroids but has been receiving IV steroids upon this admission with little improvement. He did ambulate to the bathroom yesterday with PT with a walker but had trouble returning to bed due to the increased pain in the left leg. He describes the pain as sharp, burning in characteristic. He denies any bowel or bladder incontinence or saddle anesthesia. He denies lower extremity paresthesia. He reports diagnosed diabetes within the past 1-2 years. Patient has no further constitution complaints. Plan of care discussed with Dr. Helen Garcia. Pain Assessment Full Body Front + Back: 1. Left thigh region pain stopping at knee 2. Right thigh region pain stopping at knee Pain scale - at its best (0-10): 0 Pain scale - at its worst (0-10): 10 Allergies Allergy/AdvReac Type Severity Reaction Status Date / Time cat dander Allergy Severe CAN CAUSE Verified 09/24/22 00:30 ASTHMA ATTACK-itchy eyes, congestion Home Medications Medication Instructions Recorded Confirmed Type abiraterone 500 mg tablet (Zytiga) 1,000 mg PO QAM 07/13/18 10/12/22 History calcium carbonate 500 mg-vitamin 1 tab PO QAM 07/13/18 10/12/22 History D3 5 mcg (200 unit) tablet (Calcium 500 + D) prednisone 5 mg tablet 5 mg PO BID 07/13/18 10/12/22 History leuprolide (4 month) 30 mg (4 30 mg IM Q16W #1 ea 07/28/19 10/12/22 Rx month) intramuscular syringe kit (Lupron Depot) sertraline 100 mg tablet 100 mg PO QAM #90 tabs 09/01/19 10/12/22 Rx oxycodone 5 mg tablet 5 mg PO Q4H PRN Pain 03/16/20 10/12/22 History glimepiride 1 mg tablet 1 mg PO DAILY #90 tabs 05/22/22 10/12/22 Rx metoprolol succinate 200 mg 200 mg PO DAILY #90 tabs 07/15/22 10/12/22 Rx tablet,extended release 24 hr amlodipine 10 mg tablet 10 mg PO QAM #90 tabs 07/18/22 10/12/22 Rx lisinopril 20 mg tablet 20 mg PO DAILY #90 tabs 07/23/22 10/12/22 Rx omeprazole 20 mg delayed 20 mg PO QAM #90 tabs 09/03/22 10/12/22 Rx release,disintegrating tablet atorvastatin 20 mg tablet 20 mg PO QAM #90 tabs 09/18/22 10/12/22 Rx acetaminophen 500 mg tablet 1,000 mg PO DIRECTED PRN Pain 09/24/22 10/12/22 History (Tylenol Extra Strength) denosumab 120 mg/1.7 mL (70 mg/mL) 120 mg subcut DIRECTED 09/24/22 10/12/22 History subcutaneous solution (Xgeva) multivitamin with minerals 1 tab PO DAILY 09/24/22 10/12/22 History ondansetron 4 mg disintegrating 4 mg PO Q8H PRN NAUSEA/VOMITING 09/24/22 10/12/22 History tablet triamcinolone acetonide 0.1 % 1 applic topical DIRECTED 09/24/22 10/12/22 History topical cream dexamethasone 6 mg tablet 6 mg PO QAM 10/12/22 10/12/22 History Pain History Pain Intensity Pain scale - at its best (0-10): 0 Pain scale - at its worst (0-10): 10 Patient History Medical History (Updated 10/16/22 @ 08:51 by Michael Roberts PA-C) Ambulatory dysfunction Androgen-induced osteoporosis Chronic steroid use PROSTATE CANCER Fatigue Hydronephrosis of right kidney Hyperlipidemia IBS (irritable bowel syndrome) Insomnia Resolved Kidney stones Lumbar spondylosis Osteoarthritis Prostate cancer (11/03/14) Prostate nodule Psychosis Had hx of depression with psychotic episode - resolved Renal insufficiency Sacral lesion Ureter injury OBSTRUCTION OF RT URETER 2/2 PROSTATE CA Urinary frequency Urinary incontinence Urge incontinence Urinary retention Resolved Urinary tract infection Resolved Surgical History History of cataract surgery 2018 - Bilat History of colonoscopy 2011 (due in 2021) History of prostate biopsy 2014 History of tonsillectomy as a child History of tooth extraction in age 19's S/P TURP 2014 Family History Mother , Passed age 60 of sepsis Gallbladder disease Mental disorder Psychological disorder Father , Passed age 89 of sepsis (infected bladder stones) Congestive heart failure Bladder stones Prostate cancer no treatment needed Brother Heart failure Kidney stones Kidney disease Bladder cancer, Onset Age: 75 Myocardial infarction Grandmother (Paternal) , Passed age 93 of old age Breast cancer, Onset Age: 40 double mastectomy and then did well Sister , Passed age 2 of pneumonia No problems noted. Other Has no children Denies family history of Colon cancer Ovarian cancer Social History Smoking Status: Never smoker Tobacco Type: Cigarettes Age Started Using Tobacco: 20; Age Quit Using Tobacco: 39; packs per day: 0.5; Second Hand Exposure: No; Do You Dip or Chew Tobacco: No; Hx Alcohol Use: No Hx Substance Use: No Preferred Language: Estonian Communication Ability: Effective Communication Tools: Other Visual Impairment: Limited Hearing Ability: Normal Flying Teacher Required: No Beliefs That Will Affect Care: None marital status: Current Living Situation: Family and Significant Other Current Living Situation Comment: LIVES W/ OLIVER current occupational status: retired 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 Speech and thought process appropriate. Mood and affect appropriate. Cognition intact. Head: Normocephalic and atraumatic. ENT: No evidence of nasal or oral mucosal lesions. Mucous membranes are moist. Eyes: Pupils equal round reactive to light. Abdomen: Soft and nondistended. No organomegaly. Bowel sounds active. Back/spine: Patient able to sit bedside for physical exam of the back/spine. Complete loss of lumbar lordosis. Nontender over the midline. No focal facet or SI joint tenderness provocative testing. He is generally tender over the left greater than right lumbosacral region extending to the gluteal area to direct palpation. Lower extremities: SLR negative bilaterally. Strength testing 4+/5 throughout bilateral lower extremities with dorsiflexion, plantarflexion and hip flexion/extension. Hips are nontender with internal/external rotation. Patient is generally tender to direct palpation over the entire left greater than right thigh region predominantly in the lateral aspect of the thigh. There appears to be some myofascial tightness/spasm appreciated. No evidence of allodynia, hyperpathia or hyperalgesic response. Sensation is intact to sharp and dull. He has trace ankle and pretibial edema with hemosiderosis. Neurologic: Cranial nerves grossly intact. Ambulatory function not witnessed. Results (Pain Clinic) Diagnostic Review MRI Findings: [place], [place] [phone] Magnetic Resonance Report Patient:VONDA GOLDEN Admit Date:10/12/22 MR#:[id number] Address1:[address] [place] [address] Acct ID:[id number] Address2: Date:1945 [facility] Zip:[place] [address] Age:76 Location:3N Sex:M Room/Bed:[facility] Att Phy:Saud Mercedes MD Diagnosis:LEG PAIN Tita Phy:Kings Rios DO Service Date:10/13/22 Fam Phy: Interpreting Phy:[facility] Phy:Keyshawn Jimenez MD Ordering Phy:Keyshawn Jimenez MD cc: ~ MRI OF THE LUMBAR SPINE WITHOUT IV CONTRAST CLINICAL HISTORY: Chronic low back pain. Left lower extremity radiculopathy. COMPARISON STUDY: CT scan of the lumbar spine dated 10/12/2022. MRI of lumbar spine dated 09/02/2019. TECHNIQUE: MRI of the lumbar spine is performed utilizing various T1 and T2- weighted sequences in the axial and sagittal planes. IV contrast was not administered for this examination. The examination is modestly degraded by motion artifact as well as by spinal scoliosis. FINDINGS: Lumbar spine: Vertebral body height and alignment are maintained throughout the lumbar spine. There is [id number] lumbar levocurvature centered at L3-L4. Large anterior and lateral marginal osteophytes are seen throughout. The transverse and spinous processes appear intact. There is no evidence of spondylolysis. No destructive bony lesion is seen. Chronic degenerative endplate changes noted at several levels. There is mild endplate edema at L3-L4. Intervertebral discs: Disc desiccation and loss of height is seen throughout the lumbar spine. Loss of height is moderate to severe at L3-L4, L4-L5, and L5-S1. Spinal cord: The visualized spinal cord is normal in morphology and signal intensity. The conus medullaris terminates at the level of L1. The nerve roots of the cauda equina are normal in morphology. L1-L2: Mild facet arthropathy is of no consequence. The central canal and neural foramina are patent. L2-L3: There is broad-based posterior disc bulge with annular fissure. This abuts the transiting nerve roots. In conjunction with hypertrophy of the ligamentum flavum, there is mild central canal stenosis at this level with a minimum AP canal diameter of 7 mm. Lateral disc bulges contribute to bilateral subarticular stenosis. Facet arthropathy is of no consequence. The neural foramina are patent. L3-L4: There is broad-based posterior disc bulge. This impinges in the transiting nerve roots. In conjunction with hypertrophy of the ligamentum flavum, there is moderate to severe central canal stenosis at this level with a minimum AP diameter of 5 mm. Large lateral disc bulges contribute to bilateral subarticular stenosis and likely impinge in the exiting bilateral L3 nerve roots. In conjunction with facet arthropathy, there is severe left and moderate right neural foraminal stenosis. There is a large far left lateral disc extrusion seen on axial image #14. L4-L5: There is broad-based posterior disc bulge with annular fissure. This impinges in the transiting nerve roots. In conjunction with hypertrophy of the ligamentum flavum, there is severe central canal stenosis at this level with a minimum AP diameter of 4 mm. Lateral disc bulges contribute to severe bilateral subarticular stenosis and impinge in the exiting bilateral L4 nerve roots. In conjunction with facet arthropathy, there is severe bilateral neural foraminal stenosis. There is a large far left lateral disc extrusion seen on axial image #18. L5-S1: There is broad-based posterior disc bulge with annular fissure. This abuts the transiting nerve roots. There is no significant acquired compromise of the central canal at this level. Epidural lipomatosis is seen at L5-S1. There is a large right lateral disc bulge which contributes to subarticular stenosis and impinges in the exiting right L5 nerve root. Milder lateral disc bulge is seen on the right. In conjunction with facet arthropathy, there is severe right and moderate left neural foraminal stenosis. Sacrum: The visualized sacrum is normal in morphology and signal intensity. 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 Soft tissues: There is mild edema within the posterior paraspinous musculature at L5-S1. There is mild fatty atrophy of the paraspinous muscles. Severe right- sided hydronephrosis is similar to previous with cortical atrophy of the right kidney. IMPRESSION: 1. Advanced lumbosacral spondylosis and scoliosis as above with multilevel acquired compromise of the central canal. See discussion for detailed level by level analysis. 2. No destructive bony process is seen. 3. Mild nonspecific edema is noted within the paraspinous musculature at L5-S1. 4. Severe right-sided hydronephrosis with cortical atrophy of the right kidney, similar to previous. Dictated: 10/13/2022 10:19 AM Transcribed: 10/13/2022 10:43 AM Urmila [id number] ISAAC_Shan [id number] Electronically signed by: Jesus Alberto Briones M.D. 10/13/2022 2:09 PM Dictated:10/13/22 1019 Transcribed: 10/13/[address] Findings: [place], [place] [phone] CT Scan Report Patient:VONDA GOLDEN Admit Date:10/12/22 MR#:[id number] Address1:[facility] [address] Acct ID:[id number] Address2: Date:1945 [facility] Zip:[place] [address] Age:76 Location:ED Sex:M Room/Bed: Att Phy: Diagnosis:LEG, HIP & LOWER BACK PAIN Tita Phy:Kings Rios DO Service Date:10/12/22 Stevan Phy: Interpreting Phy:Paulino Saha MDAit Phy: Ordering Phy:Ivon Parks MD cc: ~ CT pelvis wo con CLINICAL HISTORY: left hip pain TECHNIQUE: Helical axial images of the pelvis were obtained and displayed at 5 and 1 mm intervals. Automated dose lowering techniques and/or adjustment according to patient size were utilized for this exam. This exam was performed without intravenous contrast. COMPARISON: Comparison is made to CT abdomen pelvis 10/08/2021 FINDINGS: Bladder: Unremarkable. Partial visualization of right hydronephrosis and hydroureter. Reproductive organs: Unremarkable. Bowel: Unremarkable. Lymph nodes Pelvic: Unremarkable. Mesenteric: Unremarkable. Peritoneum: Normal Vessels: Atherosclerotic calcifications are seen. Abdominal wall: Unremarkable. Bones: Degenerative changes in the visualized spine. No evidence of fracture or other acute abnormality. IMPRESSION: Degenerative changes without evidence of acute abnormality. In particular no fracture to explain left hip pain. ACT 112: Negative or not required by law. Electronically signed by: Paulino Saha M.D. 10/12/2022 4:34 PM Dictated:10/12/22 1631 Transcribed: 10/12/22 1631 VONDA GOLDEN [id number] Allergy/Adv: cat dander Close Lumbar Spine MRI (Signed) Jesus Alberto Briones - 10/13/[address] (Signed) Paulino Saha - 10/12/[address] (Signed) Paulino Saha - 10/12/22 Venous Doppler Study (Signed) Paulino Saha - 10/12/22 Chest X-Ray (Signed) Paulino Saha - 09/23/22 PET, Tumor Imaging Skull-Mid Thigh (Signed) Paulino Saha - 09/18/22 Abdomen MRI (Signed) Orlando Houston - 09/03/[address] (Signed) Americo Woodard - 08/14/[address] (Signed) Orlando Houston - 08/14/22 Venous Reflux Lower Extremity Bilat 05/24/22 Abdomen MRI (Signed) Samuel Nolan - 02/11/22 Bone Scan Nuclear Medicine (Signed) Americo Woodard - 10/08/[address] (Signed) Jesus Alberto Briones - 10/08/21 Abdomen/Pelvis CT (Signed) Orlando Houston - 10/08/21 Bone Scan Nuclear Medicine (Signed) Jesus Alberto Briones - 04/23/21 Bone Scan Nuclear Medicine (Signed) Samuel Nolan - 12/25/20 Bone Scan Nuclear Medicine (Signed) Jesus Alberto Briones - 05/22/20 Bone Scan Nuclear Medicine (Signed) Samuel Nolan - 12/23/19 Bone Scan Nuclear Medicine (Signed) Mega Walton - 09/10/19 Lumbar Spine MRI (Signed) CarolynnSamuel robin - 09/02/19 Thoracic Spine MRI (Signed) VanceAmerico - 09/02/19 Pelvis MRI (Signed) Samuel Nolan - 09/02/19 Pelvis MRI (Signed) Anton,Mega - 04/02/19 Bone Scan Nuclear Medicine (Signed) Keyshawn Lofton - 04/02/19 Bone Scan Nuclear Medicine (Signed) nAton,Mega - 11/17/18 Abdomen/Pelvis CT (Signed) Samuel Nolan - 11/17/18 Bone Densitometry 04/06/18 Bone Densitometry 03/31/[address] (Signed) Keyshawn Lofton - 12/30/17 Bone Scan Nuclear Medicine (Signed) Jesus Alberto Briones - 11/28/17 Abdomen/Pelvis CT (Signed) Samuel Nolan - 11/26/17 [employer] [place], [place] [phone] CT Scan Report Patient:VONDA GOLDEN Admit Date:10/12/22 MR#:[id number] Address1:[address] [place] [address] Acct ID:[id number] Address2: Date:1945 [facility] Zip:[place] [address] Age:76 Location:ED Sex:M Room/Bed: Att Phy: Diagnosis:LEG, HIP & LOWER BACK PAIN Tita Phy:Kings Rios DO Service Date:10/12/22 Fam Phy: Interpreting Phy:Paulino Saha MDAdmit Phy: Ordering Phy:Ivon Parks MD cc: ~ CT lumbar spine wo con CLINICAL HISTORY: low back pain TECHNIQUE: Multidetector row helical CT of the lumbar spine was performed without administration of intravenous contrast. Coronal and sagittal reformations were obtained. Automated dose lowering techniques and/or adjustment according to patient size were utilized for this exam. CT DOSE: 2213.79 mGy.cm Comparison: Comparison is made to MRI lumbar spine 09/02/2019 FINDINGS: For counting purposes, the last complete intervertebral disc space is considered L5-S1. No acute fractures are identified. Degenerative changes are noted in the visualized spine. Vertebral body alignment is within normal limits. Surrounding soft tissues are unremarkable. IMPRESSION: Degenerative changes without evidence of acute bony injury. ACT 112: Negative or not required by law. Electronically signed by: Paulino Saha M.D. 10/12/2022 4:31 PM Dictated:10/12/22 1630 Transcribed: 10/12/22 1630 Previous Records Review Previous Records: personally reviewed by me
[2022-10-16] MEDS: INSULIN ASPART PER UNIT CHARGE SC SCH ×4 (08:50→22:19)
[2022-10-16] MEDS: oxyCODONE HCL 10 MG TABCR (OxyCONTIN) PO SCH ×2 (08:51→20:32)
[2022-10-16] MEDS: BACLOFEN 10 MG TAB PO SCH ×3 (09:36→20:28)
[2022-10-16] MEDS: oxyCODONE HCL IR 5 MG TAB (IMMEDIATE RELEASE) PO PRN ×2 (10:29→14:32)
--- NOTE | 2022-10-16 13:23 | Consultation ---
Date of Consultation October 16, 2022 Assessment & Plan (1) Spinal stenosis: Willard a 76-year-old gentleman with multilevel severe foraminal and central canal stenosis. Also has a far lateral disc herniation at L3-4 on the left. We have reviewed surgical intervention. Surgery would require an L3-S1 deco mpression and instrumented fusion. Risk, benefits, pros cons returns in detail. These include but not limited to anesthesia, blindness, stroke, paralysis, chronic nerve pain, hardware failure, nonunion, adjacent level disease, DVT/PE, wound infection requiring reoperation. Benefit of surgery would be significant improvement of his left lower extremity pain. We have also discussed nonsurgical options. he has seen Dr. Ray in the past. He can certainly follow-up with pain management with one of her local providers to discuss both medication management versus repeat injection. Darwin and his partner are going to consider their options but are leaning towards nonsurgical treatment. All questions have been answered in detail. History of Present Illness Reason for Consultation: Lumbar spinal stenosis Attending Physician: Luiz Parish MD History of Present Illness Is a pleasant 76-year-old gentleman who has known lumbar stenosis and has had injections by Dr. Ray in the past. Unfortunately these were not long-lasting. He presented to the ER with new onset of left leg pain mostly along the left anterior lateral thigh to the level of the knee. Any type of standing or walking reproduce the symptoms. He is most comfortable in a seated position or when lying down. He does have oxycodone at home which was given him to by his oncologist for prostate cancer. He does not take this daily. He has not had any recent physical therapy or other conservative treatment options. Pain management was consulted this morning and they gave some medication recommendations. They did not feel he was a candidate for pain management injection. He denies any bowel or bladder changes. He ambulates with a walker at home. During this patient's hospital stay he was also found to have an acute nonocclusive DVT left lower extremity. Due to bleeding issues from his prostate cancer he will not be anticoagulated. Allergies Allergy/AdvReac Type Severity Reaction Status Date / Time cat dander Allergy Severe CAN CAUSE Verified 09/24/22 00:30 ASTHMA ATTACK-itchy eyes, congestion Home Medications Medication Instructions Recorded Confirmed Type abiraterone 500 mg tablet (Zytiga) 1,000 mg PO QAM 07/13/18 10/12/22 History calcium carbonate 500 mg-vitamin 1 tab PO QAM 07/13/18 10/12/22 History D3 5 mcg (200 unit) tablet (Calcium 500 + D) prednisone 5 mg tablet 5 mg PO BID 07/13/18 10/12/22 History leuprolide (4 month) 30 mg (4 30 mg IM Q16W #1 ea 07/28/19 10/12/22 Rx month) intramuscular syringe kit (Lupron Depot) sertraline 100 mg tablet 100 mg PO QAM #90 tabs 09/01/19 10/12/22 Rx oxycodone 5 mg tablet 5 mg PO Q4H PRN Pain 03/16/20 10/12/22 History glimepiride 1 mg tablet 1 mg PO DAILY #90 tabs 05/22/22 10/12/22 Rx metoprolol succinate 200 mg 200 mg PO DAILY #90 tabs 07/15/22 10/12/22 Rx tablet,extended release 24 hr amlodipine 10 mg tablet 10 mg PO QAM #90 tabs 07/18/22 10/12/22 Rx lisinopril 20 mg tablet 20 mg PO DAILY #90 tabs 07/23/22 10/12/22 Rx omeprazole 20 mg delayed 20 mg PO QAM #90 tabs 09/03/22 10/12/22 Rx release,disintegrating tablet atorvastatin 20 mg tablet 20 mg PO QAM #90 tabs 09/18/22 10/12/22 Rx acetaminophen 500 mg tablet 1,000 mg PO DIRECTED PRN Pain 09/24/22 10/12/22 History (Tylenol Extra Strength) denosumab 120 mg/1.7 mL (70 mg/mL) 120 mg subcut DIRECTED 09/24/22 10/12/22 History subcutaneous solution (Xgeva) multivitamin with minerals 1 tab PO DAILY 09/24/22 10/12/22 History ondansetron 4 mg disintegrating 4 mg PO Q8H PRN NAUSEA/VOMITING 09/24/22 10/12/22 History tablet triamcinolone acetonide 0.1 % 1 applic topical DIRECTED 09/24/22 10/12/22 History topical cream dexamethasone 6 mg tablet 6 mg PO QAM 10/12/22 10/12/22 History Patient History Medical History Ambulatory dysfunction Androgen-induced osteoporosis Chronic steroid use PROSTATE CANCER Fatigue Hydronephrosis of right kidney Hyperlipidemia IBS (irritable bowel syndrome) Insomnia Resolved Kidney stones Lumbar spondylosis Osteoarthritis Prostate cancer (11/03/14) Prostate nodule Psychosis Had hx of depression with psychotic episode - resolved Renal insufficiency Sacral lesion Ureter injury OBSTRUCTION OF RT URETER 2/2 PROSTATE CA Urinary frequency Urinary incontinence Urge incontinence Urinary retention Resolved Urinary tract infection Resolved Surgical History History of cataract surgery 2019 - Bilat History of colonoscopy 2011 (due in 2021) History of prostate biopsy 2014 History of tonsillectomy as a child History of tooth extraction in age 19's S/P TURP 2014 Family History Mother , Passed age 60 of sepsis Gallbladder disease Mental disorder Psychological disorder Father , Passed age 89 of sepsis (infected bladder stones) Congestive heart failure Bladder stones Prostate cancer no treatment needed Brother Heart failure Kidney stones Kidney disease Bladder cancer, Onset Age: 75 Myocardial infarction Grandmother (Paternal) , Passed age 93 of old age Breast cancer, Onset Age: 40 double mastectomy and then did well Sister , Passed age 2 of pneumonia No problems noted. Other Has no children Denies family history of Colon cancer Ovarian cancer Social History Smoking Status: Never smoker Tobacco Type: Cigarettes Age Started Using Tobacco: 20; Age Quit Using Tobacco: 39; packs per day: 0.5; Second Hand Exposure: No; Do You Dip or Chew Tobacco: No; Hx Alcohol Use: No Hx Substance Use: No Preferred Language: Irish Communication Ability: Effective Communication Tools: Other Visual Impairment: Limited Hearing Ability: Normal Online Affiliate Marketing Manager Required: No Beliefs That Will Affect Care: None marital status: Current Living Situation: Family and Significant Other Current Living Situation Comment: LIVES W/ OLIVER current occupational status: retired 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 Other Information That Helps Us Care for You: No Feels Safe at Home: Yes Safety Concerns: Feels Safe At This Time Childhood Exposure to Second-Hand Smoke: No Diet: diabetic caffeine: Yes (1 cup of coffee/day ) during the past year weight has: remained stable Dental Care, Regularly: No Physical Activity Frequency: Does not Exercise Seatbelt Use: always Sunscreen Use: Yes Assistive Devices: Walker Review of Systems Review of Systems: All systems reviewed & are unremarkable except as noted in HPI & below Physical Exam Physical Exam: He is lying in bed in no acute distress Alert and oriented x3 Seen in conjunction with his partner He has 5 5 strength bilateral EHL, dorsiflexion, perfection, quadriceps, hamstrings, hip flexors, hip abductor's and hip adductor's Results & Data Vital Signs (Past 12 Hours) Vital Signs Temp Pulse Resp BP Pulse Ox O2 Del Method 10/16/22 08:20 36.6 C 76 18 147/92 H 96 Room Air Diagnostic Findings [place], [place] [phone] Magnetic Resonance Report Patient:WILLARD GOLDEN Admit Date:10/12/22 MR#:[id number] Address1:[address] [place] [address] Acct ID:[id number] Address2: Date:1945 [facility] Zip:[place] [address] Age:76 Location:3N Sex:M Room/Bed:[facility] Att Phy:Saud Mercedes MD Diagnosis:LEG PAIN Tita Phy:Kings Rios DO Service Date:10/13/22 Fam Phy: Interpreting Phy:Jesus Alberto Briones MDAdmit Phy:Keyshawn Jimenez MD Ordering Phy:Keyshawn Jimenez MD cc: ~ MRI OF THE LUMBAR SPINE WITHOUT IV CONTRAST CLINICAL HISTORY: Chronic low back pain. Left lower extremity radiculopathy. COMPARISON STUDY: CT scan of the lumbar spine dated 10/12/2022. MRI of lumbar spine dated 09/02/2019. TECHNIQUE: MRI of the lumbar spine is performed utilizing various T1 and T2- weighted sequences in the axial and sagittal planes. IV contrast was not adminis tered for this examination. The examination is modestly degraded by motion artifact as well as by spinal scoliosis. FINDINGS: Lumbar spine: Vertebral body height and alignment are maintained throughout the lumbar spine. There is [id number] lumbar levocurvature centered at L3-L4. Large anterior and lateral marginal osteophytes are seen throughout. The transverse and spinous processes appear intact. There is no evidence of spondylolysis. No destructive bony lesion is seen. Chronic degenerative endplate changes noted at several levels. There is mild endplate edema at L3-L4. Intervertebral discs: Disc desiccation and loss of height is seen throughout the lumbar spine. Loss of height is moderate to severe at L3-L4, L4-L5, and L5-S1. Spinal cord: The visualized spinal cord is normal in morphology and signal intensity. The conus medullaris terminates at the level of L1. The nerve roots of the cauda equina are normal in morphology. L1-L2: Mild facet arthropathy is of no consequence. The central canal and neural foramina are patent. L2-L3: There is broad-based posterior disc bulge with annular fissure. This abuts the transiting nerve roots. In conjunction with hypertrophy of the ligamentum flavum, there is mild central canal stenosis at this level with a minimum AP canal diameter of 7 mm. Lateral disc bulges contribute to bilateral subarticular stenosis. Facet arthropathy is of no consequence. The neural foramina are patent. L3-L4: There is broad-based posterior disc bulge. This impinges in the transiting nerve roots. In conjunction with hypertrophy of the ligamentum fl avum, there is moderate to severe central canal stenosis at this level with a minimum AP diameter of 5 mm. Large lateral disc bulges contribute to bilateral subarticular stenosis and likely impinge in the exiting bilateral L3 nerve roots. In conjunction with facet arthropathy, there is severe left and moderate right neural foraminal stenosis. There is a large far left lateral disc extrusion seen on axial image #14. L4-L5: There is broad-based posterior disc bulge with annular fissure. This impinges in the transiting nerve roots. In conjunction with hypertrophy of the ligamentum flavum, there is severe central canal stenosis at this level with a minimum AP diameter of 4 mm. Lateral disc bulges contribute to severe bilateral subarticular stenosis and impinge in the exiting bilateral L4 nerve roots. In conjunction with facet arthropathy, there is severe bilateral neural foraminal stenosis. There is a large far left lateral disc extrusion seen on axial image #18. L5-S1: There is broad-based posterior disc bulge with annular fissure. This abuts the transiting nerve roots. There is no significant acquired compromise of the central canal at this level. Epidural lipomatosis is seen at L5-S1. There is a large right lateral disc bulge which contributes to subarticular stenosis and impinges in the exiting right L5 nerve root. Milder lateral disc bulge is seen on the right. In conjunction with facet arthropathy, there is severe right and moderate left neural foraminal stenosis. Sacrum: The visualized sacrum is normal in morphology and signal intensity. 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 Soft tissues: There is mild edema within the posterior paraspinous musculature at L5-S1. There is mild fatty atrophy of the paraspinous muscles. Severe right- sided hydronephrosis is similar to previous with cortical atrophy of the right kidney. IMPRESSION: 1. Advanced lumbosacral spondylosis and scoliosis as above with multilevel acquired compromise of the central canal. See discussion for detailed level by level analysis. 2. No destructive bony process is seen. 3. Mild nonspecific edema is noted within the paraspinous musculature at L5-S1. 4. Severe right-sided hydronephrosis with cortical atrophy of the right kidney, similar to previous. Dictated: 10/13/2022 10:19 AM Transcribed: 10/13/2022 10:43 AM Urmila [id number] Jocelyn [id number] Electronically signed by: Jesus Alberto Briones M.D. 10/13/2022 2:09 PM Dictated:10/13/22 1019 Transcribed: 10/13/22 1043
[2022-10-16] MEDS ORDERED: fentaNYL 25 MCG/HR TDSY TD SCH (14:00)
[2022-10-16] MEDS: CHECK fentaNYL PATCH PLACEMENT SCH ×2 (15:11→23:23)
--- NOTE | 2022-10-16 15:12 | Hospitalist Progress Note ---
Date of Service October 16, 2022 Assessment & Plan (1) Acute pain of left lower extremity: Plan: Exacerbation of lumbar pain with left lower extremity lumbar radiculopathy. Parenteral steroid therapy day 3. Prednisone on hold while on Solu-Medrol. Orthopedic spine consultation appreciated. The patient is leaning towards and on operative intervention at this time. Low-dose fentanyl patch has been started. Pain management has seen the patient and has added baclofen therapy. Lumbar MRI scan results noted. Continue OT and PT (2) Acute deep vein thrombosis (DVT) of distal vein of left lower extremity: Plan: Nonocclusive. No systemic anticoagulation at this time (3) Anxiety: Plan: Stable. Continue current medical manage (4) DMII (diabetes mellitus, type 2): Plan: ADA diet. Sliding scale coverage as needed. Continue current medical management (5) Atrial fibrillation: Plan: Rate control measures. Not on systemic anticoagulation (6) Hypercholesterolemia: Plan: Stable. Continue statin therapy Plan Anticipate discharge to [facility] this October 18 Admission and Anticipated Discharge Date Admission Date: October 14, 2022 Subjective Alert and oriented. Orthopedic spine surgery consultation noted. The patient is leaning toward nonoperative treatment at this time. He remains on parenteral steroid therapy. Low-dose fentanyl patch has been added to his pain control measures. Pain management as previously ordered baclofen. [facility] will have a bed available for him on October 18. At discharge she will be placed on a prednisone tapering dose down to his usual daily dose of prednisone Review of Systems Review of Systems: Constitutional-no fever or chills ENT-no blurred vision, no double vision, no epistaxis, no sore throat Respiratory-no cough, no wheezing, no shortness of breath Cardiac-no palpitations, no chest pain, no syncope GI-no nausea, vomiting, diarrhea, melena, hematochezia -no urinary retention, no urinary incontinence, no dysuria, no hematuria Musculoskeletal-exacerbation lumbar pain Skin-no bruising, no rashes, no pruritus Neuro-left leg weakness Psych-no depression, no anxiety Physical Exam Physical Exam: General-alert and oriented x3, no fevers, no chills HEENT-head atraumatic and normocephalic, pupils equal and reactive to light, extraocular muscles intact Neck-no lymphadenopathy or thyromegaly, trachea midline Chest-clear to auscultation percussion. No rales wheezing or rhonchi Cardiac-regular rate and rhythm, normal S1 and S2, no murmurs Abdomen-normal bowel sounds, nontender, no hepatosplenomegaly Extremities-left leg weakness Neuro-cranial nerves II through XII intact, motor and sensory function within normal limits, strength asymmetrical with left lower extremity weakness Psych-normal affect, normal mood Results & Data Results & Data Vital Signs (Past 12 Hours) Vital Signs Temp Pulse Resp BP Pulse Ox O2 Del Method 10/16/22 08:20 36.6 C 76 18 147/92 H 96 Room Air Laboratory Results 10/15/22 05:57 10/15/22 05:57 PG Care Time/CCT Total # of Minutes Spent Total Time Spent with Patient: Total time spent is greater than 50% in coordination of care (as documented) at patient's floor/unit and/or counseling patient: Coding Level of Care Code 50962 SUB INP/OBS CARE 3/50MIN Diagnoses Acute pain of left lower extremity M79.605 Acute deep vein thrombosis (DVT) of distal vein of left lower extremity I82.4Z2 Anxiety F41.9 DMII (diabetes mellitus, type 2) E11.9 Atrial fibrillation I48.91 Hypercholesterolemia E78.00
[2022-10-17] MEDS: methylPREDNISolone 40 MG in SYRINGE 0 ML IV SCH (04:16)
[2022-10-17] MEDS: ABIRATERONE ACETATE PO SCH (06:06)
[2022-10-17] MEDS: SERTRALINE HCL 100 MG TABLET PO SCH (08:27)
[2022-10-17] MEDS: CHECK fentaNYL PATCH PLACEMENT SCH ×2 (08:27→15:24)
[2022-10-17] MEDS: PANTOprazole 40 MG TAB PO SCH (08:27)
[2022-10-17] MEDS: BACLOFEN 10 MG TAB PO SCH ×3 (08:27→21:56)
[2022-10-17] MEDS: ATORVASTATIN 20 MG TAB PO SCH (08:27)
[2022-10-17] MEDS: GLIMEPIRIDE 2 MG TAB PO SCH (08:27)
[2022-10-17] MEDS: METOPROLOL SUCC 50MG EXT REL TAB PO SCH (08:27)
[2022-10-17] MEDS: amLODIPine BESYLATE 5 MG TAB PO SCH (08:27)
[2022-10-17] MEDS: lisinopril 20 MG TAB PO SCH (08:27)
[2022-10-17] MEDS: TRIAMCINOLONE ACET 0.1% CR 15 GM TUBE TOP SCH ×2 (08:28→21:56)
[2022-10-17] MEDS: oxyCODONE HCL 10 MG TABCR (OxyCONTIN) PO SCH ×2 (08:34→21:56)
[2022-10-17] MEDS: INSULIN ASPART PER UNIT CHARGE SC SCH ×4 (08:35→21:56)
[2022-10-17] MEDS: oxyCODONE HCL IR 5 MG TAB (IMMEDIATE RELEASE) PO PRN ×2 (11:17→19:45)
[2022-10-17] MEDS: LORATADINE 10 MG TAB PO SCH (11:46)
[2022-10-17] MEDS: predniSONE 10 MG TABLET PO SCH ×2 (13:43→21:56)
--- NOTE | 2022-10-17 14:10 | Hospitalist Progress Note ---
Date of Service October 17, 2022 Assessment & Plan (1) Acute pain of left lower extremity: Plan: Exacerbation of lumbar pain with left lower extremity lumbar radiculopathy. Parenteral steroid therapy switched today, October 17, to oral prednisone therapy. Orthopedic spine consultation appreciated. The patient is leaning towards non- operative intervention at this time. Low-dose fentanyl patch has been well-tolerated and seems to be helping. This can be uptitrated as needed. Pain management has seen the patient and has added baclofen therapy. Lumbar MRI scan results noted. Continue OT and PT (2) Acute deep vein thrombosis (DVT) of distal vein of left lower extremity: Plan: Nonocclusive. No systemic anticoagulation at this time (3) Anxiety: Plan: Stable. Continue current medical manage (4) DMII (diabetes mellitus, type 2): Plan: ADA diet. Sliding scale coverage as needed. Continue current medical management (5) Atrial fibrillation: Plan: Rate control measures. Not on systemic anticoagulation (6) Hypercholesterolemia: Plan: Stable. Continue statin therapy Plan Anticipate discharge to [facility] this October 19 Admission and Anticipated Discharge Date Admission Date: October 14, 2022 Subjective Alert and oriented. No distress. He is able to ambulate a little bit further. Parenteral Solu-Medrol switched to oral prednisone therapy. He is tolerating the topical fentanyl patch quite well. Hopeful discharge to [facility] on October 19 Review of Systems Review of Systems: Constitutional-no fever or chills ENT-no blurred vision, no double vision, no epistaxis, no sore throat Respiratory-no cough, no wheezing, no shortness of breath Cardiac-no palpitations, no chest pain, no syncope GI-no nausea, vomiting, diarrhea, melena, hematochezia -no urinary retention, no urinary incontinence, no dysuria, no hematuria Musculoskeletal-exacerbation lumbar pain Skin-no bruising, no rashes, no pruritus Neuro-left leg weakness Psych-no depression, no anxiety Physical Exam Physical Exam: General-alert and oriented x3, no fevers, no chills HEENT-head atraumatic and normocephalic, pupils equal and reactive to light, extraocular muscles intact Neck-no lymphadenopathy or thyromegaly, trachea midline Chest-clear to auscultation percussion. No rales wheezing or rhonchi Cardiac-regular rate and rhythm, normal S1 and S2, no murmurs Abdomen-normal bowel sounds, nontender, no hepatosplenomegaly Extremities-left leg weakness Neuro-cranial nerves II through XII intact, motor and sensory function within normal limits, strength asymmetrical with left lower extremity weakness Psych-normal affect, normal mood Results & Data Results & Data Vital Signs (Past 12 Hours) Vital Signs Temp Pulse Resp BP Pulse Ox O2 Del Method 10/17/22 11:42 36.4 C L 87 16 120/86 96 Room Air Laboratory Results 10/15/22 05:57 10/15/22 05:57 PG Care Time/CCT Total # of Minutes Spent Total Time Spent with Patient: Total time spent is greater than 50% in coordination of care (as documented) at patient's floor/unit and/or counseling patient: Coding Level of Care Code 84780 SUB INP/OBS CARE 3/50MIN Diagnoses Acute pain of left lower extremity M79.605 Acute deep vein thrombosis (DVT) of distal vein of left lower extremity I82.4Z2 Anxiety F41.9 DMII (diabetes mellitus, type 2) E11.9 Atrial fibrillation I48.91 Hypercholesterolemia E78.00
[2022-10-18] MEDS: CHECK fentaNYL PATCH PLACEMENT SCH ×4 (00:53→23:08)
[2022-10-18] MEDS: ABIRATERONE ACETATE PO SCH (05:50)
[2022-10-18] MEDS: GLIMEPIRIDE 2 MG TAB PO SCH (05:50)
[2022-10-18] MEDS: INSULIN ASPART PER UNIT CHARGE SC SCH ×4 (08:38→21:02)
[2022-10-18] MEDS: predniSONE 10 MG TABLET PO SCH ×3 (08:39→21:02)
[2022-10-18] MEDS: oxyCODONE HCL 10 MG TABCR (OxyCONTIN) PO SCH ×2 (08:39→21:01)
[2022-10-18] MEDS: PANTOprazole 40 MG TAB PO SCH (08:39)
[2022-10-18] MEDS: ATORVASTATIN 20 MG TAB PO SCH (08:39)
[2022-10-18] MEDS: TRIAMCINOLONE ACET 0.1% CR 15 GM TUBE TOP SCH ×2 (08:39→21:05)
[2022-10-18] MEDS: BACLOFEN 10 MG TAB PO SCH ×3 (08:39→21:01)
[2022-10-18] MEDS: SERTRALINE HCL 100 MG TABLET PO SCH (08:39)
[2022-10-18] MEDS: lisinopril 20 MG TAB PO SCH (08:40)
[2022-10-18] MEDS: LORATADINE 10 MG TAB PO SCH (08:40)
[2022-10-18] MEDS: METOPROLOL SUCC 50MG EXT REL TAB PO SCH (08:40)
[2022-10-18] MEDS: amLODIPine BESYLATE 5 MG TAB PO SCH (08:45)
[2022-10-18] MEDS ORDERED: GLIMEPIRIDE 2 MG TAB PO ONE (10:40)
--- NOTE | 2022-10-18 12:42 | Hospitalist Progress Note ---
Date of Service October 18, 2022 Assessment & Plan (1) Acute pain of left lower extremity: Plan: Exacerbation of lumbar pain with left lower extremity lumbar radiculopathy. Parenteral steroid therapy switched on October 17 to oral prednisone therapy. Orthopedic spine consultation appreciated. The patient is opting for non- operative intervention at this time. Low-dose fentanyl patch has been well- tolerated and seems to be helping. This can be uptitrated as needed. Pain management has seen the patient and has added baclofen therapy. Lumbar MRI scan results noted. Continue OT and PT (2) Acute deep vein thrombosis (DVT) of distal vein of left lower extremity: Plan: Nonocclusive. No systemic anticoagulation at this time (3) Anxiety: Plan: Stable. Continue current medical manage (4) DMII (diabetes mellitus, type 2): Plan: ADA diet. Sliding scale coverage as needed. Glimepiride dosage uptitrated today, October 18 (5) Atrial fibrillation: Plan: Rate control measures. Not on systemic anticoagulation (6) Hypercholesterolemia: Plan: Stable. Continue statin therapy Plan Anticipate discharge to [facility] tomorrOctober 19 Admission and Anticipated Discharge Date Admission Date: October 14, 2022 Subjective The patient has developed a productive cough per nursing staff. Lung sounds however are clear. This may be sinus drainage that he is coughing back up. No overt evidence of bronchitis or pneumonia. Glimepiride dosage uptitrated for better glucose control. He is intolerant of metformin in the past. Overall he is improving. Hopeful discharge to [facility] tomOctober 19 Review of Systems Review of Systems: Constitutional-no fever or chills ENT-no blurred vision, no double vision, no epistaxis, no sore throat Respiratory-no cough, no wheezing, no shortness of breath Cardiac-no palpitations, no chest pain, no syncope GI-no nausea, vomiting, diarrhea, melena, hematochezia -no urinary retention, no urinary incontinence, no dysuria, no hematuria Musculoskeletal-exacerbation lumbar pain Skin-no bruising, no rashes, no pruritus Neuro-left leg weakness present but improved Psych-no depression, no anxiety Physical Exam Physical Exam: General-alert and oriented x3, no fevers, no chills HEENT-head atraumatic and normocephalic, pupils equal and reactive to light, extraocular muscles intact Neck-no lymphadenopathy or thyromegaly, trachea midline Chest-clear to auscultation percussion. No rales wheezing or rhonchi Cardiac-regular rate and rhythm, normal S1 and S2, no murmurs Abdomen-normal bowel sounds, nontender, no hepatosplenomegaly Extremities-left leg weakness Neuro-cranial nerves II through XII intact, motor and sensory function within normal limits, strength asymmetrical with left lower extremity weakness but improved Psych-normal affect, normal mood Results & Data Results & Data Vital Signs (Past 12 Hours) Vital Signs Temp Pulse Resp BP Pulse Ox O2 Del Method 10/18/22 07:28 36.6 C 82 16 138/98 98 Room Air Laboratory Results 10/15/22 05:57 10/15/22 05:57 PG Care Time/CCT Total # of Minutes Spent Total Time Spent with Patient: Total time spent is greater than 50% in coordination of care (as documented) at patient's floor/unit and/or counseling patient: Coding Level of Care Code 57212 SUB INP/OBS CARE 3/50MIN Diagnoses Acute pain of left lower extremity M79.605 Acute deep vein thrombosis (DVT) of distal vein of left lower extremity I82.4Z2 Anxiety F41.9 DMII (diabetes mellitus, type 2) E11.9 Atrial fibrillation I48.91 Hypercholesterolemia E78.00
[2022-10-18] MEDS: oxyCODONE HCL IR 5 MG TAB (IMMEDIATE RELEASE) PO PRN (23:56)
[2022-10-19] MEDS: ABIRATERONE ACETATE PO SCH (06:00)
[2022-10-19 07:27] VITALS: PULSE 96; RESP 18; TEMP 97.7; O2SAT 96
[2022-10-19] MEDS ORDERED: GLIMEPIRIDE 2 MG TAB PO SCH (07:30)
[2022-10-19 07:57] VITALS: BP 120/84
[2022-10-19] MEDS ORDERED: AMOXICILLIN 875 MG TAB PO SCH (09:00)
[2022-10-19] MEDS: METOPROLOL SUCC 50MG EXT REL TAB PO SCH (09:19)
[2022-10-19] MEDS: SERTRALINE HCL 100 MG TABLET PO SCH (09:19)
[2022-10-19] MEDS: lisinopril 20 MG TAB PO SCH (09:19)
[2022-10-19] MEDS: predniSONE 10 MG TABLET PO SCH (09:19)
[2022-10-19] MEDS: BACLOFEN 10 MG TAB PO SCH (09:20)
[2022-10-19] MEDS: LORATADINE 10 MG TAB PO SCH (09:20)
[2022-10-19] MEDS: PANTOprazole 40 MG TAB PO SCH (09:20)
[2022-10-19] MEDS: amLODIPine BESYLATE 5 MG TAB PO SCH (09:20)
[2022-10-19] MEDS: ATORVASTATIN 20 MG TAB PO SCH (09:20)
[2022-10-19] MEDS: CHECK fentaNYL PATCH PLACEMENT SCH (09:21)
[2022-10-19] MEDS: INSULIN ASPART PER UNIT CHARGE SC SCH ×2 (09:32→12:26)
[2022-10-19] MEDS: oxyCODONE HCL 10 MG TABCR (OxyCONTIN) PO SCH (09:33)
--- NOTE | 2022-10-19 11:48 | Discharge Summary ---
Date of Service October 19, 2022 Admission HPI Per Admitting Provider "Enio" reports he developed muscular pain in his legs. Very painful to pressure. Is not able to bear weight due to pain in his L leg. Very tender to palpation. Pain seems to go from back down the leg. Stops at the knee. No pain when laying flat on his back. Denies numbness and tingling. No saddle anesthesia. No urinary incontinence, no bladder incontience. No fevers or chills. No recent medication changes. Denies swelling. 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 No redness/warmth of the L leg. Ports he does have a history of spinal stenosis has had MRIs but is not sure when the last one of his back was. He notes that his current flare feels similar to when he has had spinal stenosis pain in the past but it has been several months. He was recommended to not have surgery in the past as he was a poor surgical candidate and it was not urgent at that time. He did have some epidural injections which he reports did not produce benefit. In general pain has been tolerated and is focused more on his prostate cancer. His pain started acutely 2 days ago without injury and he did not have any twisting or popping. He notes his left lumbar paraspinal is very tense and he has pain radiating down his left thigh but not past his knee. He does feel weak focally in the left, and has difficulty bearing weight. 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 No rales wheezing or rhonchi Cardiac-regular rate and rhythm, normal S1 and S2, no murmurs Abdomen-normal bowel sounds, nontender, no hepatosplenomegaly Extremities-left leg weakness Neuro-cranial nerves II through XII intact, motor and sensory function within normal limits, strength asymmetrical with left lower extremity weakness but improved Psych-normal affect, normal mood Discharge Data Allergies Allergy/AdvReac Type Severity Reaction Status Date / Time cat dander Allergy Severe CAN CAUSE Verified 09/24/22 00:30 ASTHMA ATTACK-itchy eyes, congestion Consultations 10/12/22 17:48 ED Decision to Admit Stat 10/15/22 11:46 Consult Orthopedic Surgery Routine Consult Pain Management Routine Ordered Studies 10/12/22 13:18 US venous doppler LE LT Urgent 10/12/22 15:19 CT lumbar spine wo con Stat CT pelvis wo con Stat 10/13/22 09:09 MR lumbar spine wo con Urgent Hospital Course (1) Acute pain of left lower extremity: Exacerbation of lumbar pain with left lower extremity lumbar radiculopathy. Parenteral steroid therapy switched on October 17 to oral prednisone therapy. Orthopedic spine consultation appreciated. The patient is opting for non- operative intervention at this time. Low-dose fentanyl patch has been well- tolerated and seems to be helping. This can be uptitrated as needed. Pain management has seen the patient and has added baclofen therapy. Lumbar MRI scan results noted. Continue OT and PT. will gradually taper prednisone down to his usual prednisone dosing (2) Acute deep vein thrombosis (DVT) of distal vein of left lower extremity: Nonocclusive. No systemic anticoagulation at this time (3) Anxiety: Stable. Continue current medical manage (4) Upper respiratory infection: Amoxicillin started (5) DMII (diabetes mellitus, type 2): ADA diet. Sliding scale coverage as needed. Glimepiride dosage uptitrated on October 18. Glucose is now trending downward (6) Atrial fibrillation: Rate control measures. Not on systemic anticoagulation (7) Hypercholesterolemia: Stable. Continue statin therapy Plan Discharge to [facility], October 19 Total Time Total Time Spent Total Time Spent (In Minutes): 45 minutes Discharge Plan Discharge Items Patient Disposition: [facility] Reason For Visit: LEG PAIN Discharge Diagnosis: Sciatica due to lumbar stenosis and lumbar degenerative disc disease, URI, COVID nasal swab positivity Activity: Resume your previous activity Non-emergency contact: Primary Care Provider Call non-emergency contact if: your symptoms worsen Follow-up/Referrals: Kings Rios, [Primary Care Provider] - Diet: Carb Consistent or DM2 Addtl Attending Provider Instructions: Take amoxicillin for 5 days. Prednisone 10 mg 3 times a day for 2 days, then 10 mg twice a day for 2 days, then resume 5 mg twice a day which is your chronic dose. Amaryl dosage increased to 2 mg daily Pending Studies at Discharge: No Stand-Alone Forms: My [facility] Skilled Items Patient informed of condition?: Yes DNR: Yes Discharge Level of Care: Skilled Communicable Disease: No Discharge Prognosis: Stable Lines: None Urinary Catheter: No Medications and DC Order Prescriptions: New amoxicillin 875 mg Tablet 875 mg PO BIDM Qty: 10 0RF prednisone 10 mg Tablet 10 mg PO TID Qty: 10 0RF fentanyl 25 mcg/hr Patch 72 Hour 25 mcg transdermal Q72H Qty: 3 0RF oxycodone [OxyContin] 10 mg Tablet,Oral Only,Ext.Rel.12 Hr 10 mg PO BID Qty: 10 0RF baclofen 10 mg Tablet 10 mg PO TID Qty: 0 0RF loratadine [Wal-itin] 10 mg Tablet 10 mg PO DAILY Qty: 0 0RF glimepiride 2 mg Tablet 2 mg PO QDB Qty: 0 0RF Continued Lupron Depot (4 month) 30 mg syringe kit 30 mg IM Q16W Qty: 1 0RF metoprolol succinate 200 mg tablet extended release 24 hr 200 mg PO DAILY Qty: 90 3RF amlodipine 10 mg tablet 10 mg PO QAM Qty: 90 3RF lisinopril 20 mg tablet 20 mg PO DAILY Qty: 90 3RF omeprazole 20 mg tablet,disintegrat, delay rel 20 mg PO QAM Qty: 90 3RF atorvastatin 20 mg tablet 20 mg PO QAM Qty: 90 3RF oxycodone 5 mg tablet 5 mg PO Q4H PRN (Reason: Pain) sertraline 100 mg tablet 100 mg PO QAM Qty: 90 3RF abiraterone [Zytiga] 500 mg Tablet 1,000 mg PO QAM calcium carbonate-vitamin D3 [Calcium 500 + D] 500 mg(1,250mg) -200 unit Tablet 1 tab PO QAM acetaminophen [Tylenol Extra Strength] 500 mg Tablet 1,000 mg PO DIRECTED PRN (Reason: Pain) multivitamin with minerals Tablet 1 tab PO DAILY ondansetron 4 mg Tablet,Disintegrating 4 mg PO Q8H PRN (Reason: NAUSEA/VOMITING) Xgeva 120 mg/1.7 mL (70 mg/mL) Solution 120 mg SUBCUT DIRECTED triamcinolone acetonide 0.1 % Cream 1 applic TOPICAL DIRECTED Rx Instructions: APPLY BID FRIDAY THROUGH FRIDAY TO LEG DIRECTED. Discontinued glimepiride 1 mg tablet 1 mg PO DAILY Qty: 90 1RF prednisone 5 mg Tablet 5 mg PO BID dexamethasone 6 mg tablet 6 mg PO QAM Discharge Orders: Discharge Order (Routine); Ordered 10/19/22 Ordered By: Luiz Parish Admission Data Admit Date/Time: 10/14/22 11:59 Attending Provider: Luiz Parish Admit Provider: Keyshawn Jimenez Primary Care Provider: Kings Rios Other Providers: Keyshawn Jimenez ; Benedict Velazco ; Nehemiah Landrum ; [facility] [place] ; [place] Coding Level of Care Code 90722 INP/OBS DISCH >30 MIN Diagnoses Acute pain of left lower extremity M79.605 Acute deep vein thrombosis (DVT) of distal vein of left lower extremity I82.4Z2 Anxiety F41.9 Upper respiratory infection J06.9 DMII (diabetes mellitus, type 2) E11.9 Atrial fibrillation I48.91 Hypercholesterolemia E78.00
== END 2022-10-19 13:01 | DRG 551 ==
LOC: 3N 12:58 → ED 12:58 → SUATTDRO 19:16 → 3N 19:43

== ENCOUNTER 2022-10-24 11:36 | Inpatient (IN) ==
--- NOTE | 2022-10-24 12:06 | Emergency Department Note ---
Impression & Plan Weakness, Right leg pain, Left leg pain, Failure of outpatient treatment, COVID-19, Spinal stenosis, Thrombocytopenia ED Provider Note NAME: VNODA GOLDEN AGE: 76 SEX: M : 1945 ARRIVES VIA: Ambulance INFORMANT: [Patient][nurses] ED PROVIDER(S): [Jesus Alberto Peralta MD] CHIEF COMPLAINT: Right leg pain HISTORY OF PRESENT ILLNESS: The patient is a 76-year-old male who presents to the ED with some right inner thigh pain since last evening. The patient is currently at [facility] for rehab and care. The patient was discharged from our hospital 5 days ago after some left leg pain. He was found to have significant spinal stenosis as well as a small nonocclusive left lower extremity DVT. He has chosen not to have surgical intervention. The patient is currently on prednisone to help with the spinal stenosis. He states that he is not on any anticoagulation because he has had issues with GI bleeding. The patient was sent today because of the new pain on the right side. The pain on the right is far less severe than the pain on the left. The pain is a 2/10 on the right, a 5/10 on the left. The left leg pain has been ongoing since discharge from the hospital. Of note, the patient is COVID-positive. He tested positive about 6 days ago. The patient states he is basely bedbound now. He has really not had the ability to walk since transfer to [facility]. PMHx/PSHx: See Below SOCIAL HISTORY: See Below. PHYSICAL EXAM: GENERAL: Patient is in no acute distress. HEENT: No acute trauma, normocephalic atraumatic, mucous membranes moist, no nasal congestion. NECK: No stridor, no adenopathy, no meningismus, trachea is midline. LUNGS: Clear to auscultation bilaterally when listening anterior, no wheeze, no rhonchi, breath sounds equal. HEART: Irregular, normal rate, no murmurs. ABDOMEN: Soft, nontender, bowel sounds positive, no peritonitis. EXTREMITIES: No cyanosis. Moderate bilateral pedal edema with some chronic skin change. The right inner thigh where he describes discomfort is not erythematous or contused. NEUROLOGIC: Oriented x 3, no speech slur, does move all extremities. SKIN: No rash, no jaundice, no diaphoresis. DIFFERENTIAL DIAGNOSIS: DVT, musculoskeletal pain, nerve impingement, spinal stenosis, sciatica, contusion, hematoma, among others. EMERGENCY DEPARTMENT COURSE/PROCEDURES: Prior/Outside records reviewed: Recent discharge summary. MEDICAL DECISION MAKING: There is no leukocytosis or concerning anemia. Platelet count is low at 89. The patient has had a low platelet count before but this is below where he typically runs. No renal failure or significant electrolyte abnormality. Anaplasmosis and Babesia smears were negative. Anaplasmosis and Babesia referen ce testing is pending. Respiratory bio fire did return positive for COVID--this was already known. Right leg ultrasound did not show any findings of DVT. On exam, there is no cellulitis or contusion in the area of his discomfort. Patient states that he has not done well with his rehab therapy and pain control at [facility]. He had chosen this route versus the surgical route. Patient is now having pain in his other leg. He does have severe spinal stenosis. I did speak with the patient's significant other, José Henry. As the patient is not improving with rehab and pain control, as he is not able to ambulate, hospitalization for potential surgical intervention was requested. I spoke with the patient, I spoke with case management, the on-call hospitalist was consulted. At this point, the cause for the pain is unclear but certainly may be from his severe spinal stenosis. There is no acute DVT on the right, no cellulitis. I do not believe antibiotics are indicated. DISPOSITION: Patent's presentation and findings warrant a hospital stay. Past Med/Surg History Medical History Acute deep vein thrombosis (DVT) of distal vein of left lower extremity 09/2022 Ambulatory dysfunction Androgen-induced osteoporosis Atrial fibrillation DX 2019 - FOLLOWS W/ DR. GRANADOS Chronic steroid use PROSTATE CANCER COVID-19 09/2022 requiring hospitalization DMII (diabetes mellitus, type 2) Fatigue Hydronephrosis of right kidney Hyperlipidemia IBS (irritable bowel syndrome) Insomnia Resolved Kidney stones Lumbar spondylosis Osteoarthritis Prostate cancer (11/03/14) Prostate nodule Psychosis Had hx of depression with psychotic episode - resolved Renal insufficiency Sacral lesion Thrombocytopenia Ureter injury OBSTRUCTION OF RT URETER 2/2 PROSTATE CA Urinary frequency Urinary incontinence Urge incontinence Urinary retention Resolved Urinary tract infection Resolved Surgical History History of cataract surgery 2018 - Bilat History of colonoscopy 2011 (due in 2021) History of prostate biopsy 2014 History of tonsillectomy as a child History of tooth extraction in age 19's S/P TURP 2014 Family History Mother , Passed age 60 of sepsis Gallbladder disease Mental disorder Psychological disorder Father , Passed age 89 of sepsis (infected bladder stones) Congestive heart failure Bladder stones Prostate cancer no treatment needed Brother Heart failure Kidney stones Kidney disease Bladder cancer, Onset Age: 75 Myocardial infarction Grandmother (Paternal) , Passed age 93 of old age Breast cancer, Onset Age: 40 double mastectomy and then did well Sister , Passed age 2 of pneumonia No problems noted. Other Has no children Denies family history of Colon cancer Ovarian cancer Social History Smoking Status: Former smoker Tobacco Type: Cigarettes Age Started Using Tobacco: 20; Age Quit Using Tobacco: 39; packs per day: 0.5; Second Hand Exposure: No; Do You Dip or Chew Tobacco: No; Hx Alcohol Use: No Hx Substance Use: No Preferred Language: Faroese Communication Ability: Effective Communication Tools: Other Visual Impairment: Limited Hearing Ability: Normal Statistical Machine Mechanic Required: No Beliefs That Will Affect Care: None marital status: Current Living Situation: Family and Significant Other Current Living Situation Comment: LIVES W/ JOSÉ - current occupational status: retired 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 Other Information That Helps Us Care for You: No Feels Safe at Home: Yes Safety Concerns: Feels Safe At This Time Childhood Exposure to Second-Hand Smoke: No Diet: diabetic caffeine: Yes (1 cup of coffee/day ) during the past year weight has: remained stable Dental Care, Regularly: No Physical Activity Frequency: Does not Exercise Seatbelt Use: always Sunscreen Use: Yes Assistive Devices: Walker and Other Allergies Allergies Allergy/AdvReac Type Severity Reaction Status Date / Time cat dander Allergy Severe CAN CAUSE Verified 09/24/22 00:30 ASTHMA ATTACK-itchy eyes, congestion Home Meds Home Medications Medication Instructions Recorded Confirmed abiraterone 500 mg tablet (Zytiga) 1,000 mg PO QAM 07/13/18 10/24/22 calcium carbonate 500 mg-vitamin 1 tab PO QAM 07/13/18 10/24/22 D3 5 mcg (200 unit) tablet (Calcium 500 + D) oxycodone 5 mg tablet 5 mg PO Q4H PRN Pain 03/16/20 10/24/22 acetaminophen 500 mg tablet 1,000 mg PO DIRECTED PRN Pain 09/24/22 10/24/22 (Tylenol Extra Strength) denosumab 120 mg/1.7 mL (70 mg/mL) 120 mg subcut DIRECTED 09/24/22 10/24/22 subcutaneous solution (Xgeva) multivitamin with minerals 1 tab PO DAILY 09/24/22 10/24/22 ondansetron 4 mg disintegrating 4 mg PO Q8H PRN NAUSEA/VOMITING 09/24/22 10/24/22 tablet triamcinolone acetonide 0.1 % 1 applic topical DIRECTED 09/24/22 10/24/22 topical cream glimepiride 2 mg tablet 2 mg PO QAM 10/24/22 10/24/22 Previous Rx's Medication Instructions Recorded leuprolide (4 month) 30 mg (4 30 mg IM Q16W #1 ea 07/28/19 month) intramuscular syringe kit (Lupron Depot) sertraline 100 mg tablet 100 mg PO QAM #90 tabs 09/01/19 metoprolol succinate 200 mg 200 mg PO DAILY #90 tabs 07/15/22 tablet,extended release 24 hr amlodipine 10 mg tablet 10 mg PO QAM #90 tabs 07/18/22 lisinopril 20 mg tablet 20 mg PO DAILY #90 tabs 07/23/22 omeprazole 20 mg delayed 20 mg PO QAM #90 tabs 09/03/22 release,disintegrating tablet atorvastatin 20 mg tablet 20 mg PO QAM #90 tabs 09/18/22 amoxicillin 875 mg tablet 875 mg PO BIDM #10 tabs 10/19/22 baclofen 10 mg tablet 10 mg PO TID #0 tabs 10/19/22 loratadine 10 mg tablet (Wal-itin) 10 mg PO DAILY #0 tabs 10/19/22 oxycodone 10 mg tablet,crush 10 mg PO BID #10 tabs 10/19/22 resistant,extended release 12 hr (OxyContin) prednisone 10 mg tablet 10 mg PO TID #10 tabs 10/19/22 Results & Data (ED) Vital Signs Vital Signs - 24 hr 10/24/22 11:48 10/24/22 11:48 10/24/22 12:24 Temperature 36.7 C Temperature Source Oral Pulse Rate 89 83 Pulse Rate from SpO2 Sensor Respiratory Rate 22 Blood Pressure 111/86 Blood Pressure Mean 94 Pulse Oximetry 95 Oxygen Delivery Method Room Air Room Air Sepsis New/Unexplained Change in Mental Status No Sepsis Action Taken by Nursing No Action Required 10/24/22 12:23 10/24/22 12:30 10/24/22 13:00 Temperature Temperature Source Pulse Rate 90 86 79 Pulse Rate from SpO2 Sensor 89 90 79 Respiratory Rate 21 23 21 Blood Pressure 119/78 128/74 Blood Pressure Mean 91 92 Pulse Oximetry 95 94 95 Oxygen Delivery Method Room Air Room Air Sepsis New/Unexplained Change in Mental Status Sepsis Action Taken by Nursing 10/24/22 14:11 10/24/22 14:30 10/24/22 15:00 Temperature Temperature Source Pulse Rate 89 86 91 H Pulse Rate from SpO2 Sensor 89 86 91 H Respiratory Rate 21 20 17 Blood Pressure 129/83 132/78 110/72 Blood Pressure Mean 98 96 84 Pulse Oximetry 94 95 95 Oxygen Delivery Method Room Air Room Air Room Air Sepsis New/Unexplained Change in Mental Status Sepsis Action Taken by Nursing 10/24/22 16:28 Temperature Temperature Source Pulse Rate 96 H Pulse Rate from SpO2 Sensor Respiratory Rate Blood Pressure Blood Pressure Mean Pulse Oximetry Oxygen Delivery Method Sepsis New/Unexplained Change in Mental Status Sepsis Action Taken by Shelter Medications Current Medication List: was personally reviewed by me Laboratory Data Attestation: I reviewed the patient's lab results. 10/24/22 11:55 10/24/22 11:55 Lab Results 10/24/22 10/24/22 10/24/22 Range/Units 11:55 11:55 11:55 WBC 6.58 (4.8-10.8) K/ul RBC 4.65 L (4.70-6.10) M/uL Hgb 14.7 (14.0-18.0) g/dl Hct 43.1 (42.0-52.0) % MCV 92.7 (80.0-100.0) fL MCH 31.6 (25.0-34.0) pg MCHC 34.1 (32.0-36.0) g/dL RDW Std Deviation 44.7 (36.4-46.3) fL RDW Coeff of Tramaine 13.2 (11.5-14.5) % Plt Count 85 L (130-400) K/uL MPV 11.3 (9.4-12.4) fL PT 11.2 (9.0-12.0) Seconds INR 1.0 (0.9-1.1) APTT 27.0 (21.0-31.0) Seconds PTT Ratio 1.0 Sodium 134 L (136-145) mmol/L Potassium 3.8 (3.5-5.1) mmol/L Chloride 98 (98-107) mmol/L Carbon Dioxide 29 (21-32) mmol/L Anion Gap 7 (3-11) BUN 23 (6-23) mg/dl Creatinine 0.98 (0.6-1.4) mg/dl Est Cr Clr Drug Dosing Not Reportable Est GFR ( Amer) 85.8 ml/min Est GFR (Non-Af Amer) 74.1 ml/min BUN/Creatinine Ratio 23.5 H (10-20) Glucose 246 H (70-99(Fasting)) mg/dl Calcium 8.0 L (8.6-10.3) mg/dl Magnesium 1.7 (1.7-2.4) mg/dl TSH (0.300-4.500) uIu/ml Anaplasma Smear Babesia Smear 10/24/22 10/24/22 Range/Units 12:00 14:59 WBC (4.8-10.8) K/ul RBC (4.70-6.10) M/uL Hgb (14.0-18.0) g/dl Hct (42.0-52.0) % MCV (80.0-100.0) fL MCH (25.0-34.0) pg MCHC (32.0-36.0) g/dL RDW Std Deviation (36.4-46.3) fL RDW Coeff of Tramaine (11.5-14.5) % Plt Count (130-400) K/uL MPV (9.4-12.4) fL PT (9.0-12.0) Seconds INR (0.9-1.1) APTT (21.0-31.0) Seconds PTT Ratio Sodium (136-145) mmol/L Potassium (3.5-5.1) mmol/L Chloride (98-107) mmol/L Carbon Dioxide (21-32) mmol/L Anion Gap (3-11) BUN (6-23) mg/dl Creatinine (0.6-1.4) mg/dl Est Cr Clr Drug Dosing Est GFR ( Amer) ml/min Est GFR (Non-Af Amer) ml/min BUN/Creatinine Ratio (10-20) Glucose (70-99(Fasting)) mg/dl Calcium (8.6-10.3) mg/dl Magnesium (1.7-2.4) mg/dl TSH 1.264 (0.300-4.500) uIu/ml Anaplasma Smear See Comment Babesia Smear See Comment Administered Medications Acetaminophen (Acetaminophen 500 Mg Tab) 500 mg PO TID [facility] Stop: 11/23/22 20:59 Last Admin: 10/25/22 13:30 Dose: 500 mg Documented By: Admin: 10/25/22 08:46 Dose: 500 mg Documented By: Admin: 10/24/22 21:59 Dose: 500 mg Documented By: MANUEL Hydrocodone Bitart/Acetaminophen (Hydrocodone/Acetaminophen 7.5/325mg Tab) 1 tab PO Q6H PRN PRN Reason: Pain Stop: 11/07/22 19:15 Last Admin: 10/25/22 08:53 Dose: 1 tab Documented By: CHERYLE Albuterol (Albuterol Hfa 8 Gm Inhaler) 1 puffs INH BIDR [facility] Stop: 11/24/22 18:59 Last Admin: 10/25/22 18:24 Dose: 1 puffs Documented By: TAWANNA Atorvastatin Calcium (Atorvastatin 20 Mg Tab) 20 mg PO QAM [facility] Stop: 11/24/22 08:59 Last Admin: 10/25/22 08:48 Dose: 20 mg Documented By: NOREENF Calcium/Vitamin D (Calcium 600mg + Vit D 400 Iu Tab) [facility] [place] [facility]: 11/24/22 08:59 Last Admin: 10/25/22 08:48 Dose: 1 tab Documented By: CHERYLE Gabapentin (Gabapentin 100 Mg Cap) 100 mg PO TID [facility] Stop: 11/23/22 20:59 Last Admin: 10/25/22 13:31 Dose: 100 mg Documented By: Admin: 10/25/22 08:47 Dose: 100 mg Documented By: Admin: 10/24/22 22:00 Dose: 100 mg Documented By: MANUEL Guaifenesin (Guaifenesin 600 Mg Tabcr) 600 mg PO Q12 [facility] Stop: 11/23/22 20:59 Last Admin: 10/25/22 08:48 Dose: 600 mg Documented By: Admin: 10/24/22 22:00 Dose: 600 mg Documented By: MANUEL Insulin Aspart (Insulin Aspart Per Unit Charge) 0 units SC ACHS [facility] Stop: 11/23/22 20:59 Last Admin: 10/25/22 16:44 Dose: 9 units Documented By: CHERYLE Co-signed By: RIKA Admin: 10/25/22 12:02 Dose: 10 units Documented By: CHERYLE Co-signed By: RIKA Admin: 10/25/22 07:57 Dose: 9 units Documented By: CHERYLE Co-signed By: SONAM Admin: 10/24/22 21:57 Dose: 5 units Documented By: MANUEL Co-signed By: DANE Insulin Glargine (Lantus Per Unit Charge) 15 units SQ BID [facility] Stop: 11/24/22 08:59 Last Admin: 10/25/22 08:34 Dose: 15 units Documented By: CHERYLE Co-signed By: SONAM Ipratropium Driggs (Ipratropium Driggs Hfa Inhaler) 1 puffs INH BIDR [facility] Stop: 11/24/22 18:59 Last Admin: 10/25/22 18:25 Dose: 1 puffs Documented By: TAWANNA Loratadine (Loratadine 10 Mg Tab) 10 mg PO DAILY [facility] Stop: 11/24/22 08:59 Last Admin: 10/25/22 08:48 Dose: 10 mg Documented By: CHERYLE Metoprolol Succinate (Metoprolol Succ 50mg Ext Rel Tab) 200 mg PO DAILY [facility] Stop: 11/24/22 08:59 Last Admin: 10/25/22 08:48 Dose: 200 mg Documented By: CHERYLE Multivitamins/Minerals (Cerovite Adv Formula Tab) 1 tab PO DAILY [facility] Stop: 11/24/22 08:59 Last Admin: 10/25/22 08:49 Dose: 1 tab Documented By: CHERYLE Nystatin (Nystatin Susp 500,000 U/5 Ml Udc) 5 ml PO QID [facility] Stop: 11/03/22 20:59 Last Admin: 10/25/22 16:35 Dose: 5 ml Documented By: Admin: 10/25/22 11:56 Dose: 5 ml Documented By: Admin: 10/25/22 08:47 Dose: 5 ml Documented By: Admin: 10/24/22 22:00 Dose: 5 ml Documented By: MANUEL Pantoprazole Sodium (Pantoprazole 40 Mg Tab) 40 mg PO BID [facility] Stop: 11/23/22 20:59 Last Admin: 10/25/22 08:47 Dose: 40 mg Documented By: Admin: 10/24/22 22:01 Dose: 40 mg Documented By: MANUEL Sertraline HCl (Sertraline Hcl 100 Mg Tablet) 100 mg PO QAM [facility] Stop: 11/24/22 08:59 Last Admin: 10/25/22 08:48 Dose: 100 mg Documented By: CHERYLE Triamcinolone Acetonide (Triamcinolone Acet 0.1% Cr 15 Gm Tube) 1 appln TOP BID [facility] Stop: 11/23/22 20:59 Last Admin: 10/25/22 08:46 Dose: 1 appln Documented By: Admin: 10/24/22 22:01 Dose: 1 appln Documented By: MANUEL Discontinued Medications Albuterol (Albut/Ipratrop 3mg/0.5mg Neb 3 Ml Vial) 3 ml NEB NOW STA; Protocol Stop: 10/24/22 16:00 Last Admin: 10/24/22 16:15 Dose: 3 ml Documented By: ANA Albuterol (Albut/Ipratrop 3mg/0.5mg Neb 3 Ml Vial) 3 ml NEB QIDR MIESHA; Protocol Stop: 11/23/22 21:14 Last Admin: 10/25/22 15:20 Dose: 3 ml Documented By: Admin: 10/25/22 11:17 Dose: 3 ml Documented By: Admin: 10/25/22 07:27 Dose: 3 ml Documented By: Admin: 10/24/22 21:46 Dose: 3 ml Documented By: ZEFERINO Dexamethasone (Dexamethasone Sod Inj 4 Mg/Ml Vial) 6 mg IV NOW STA Stop: 10/24/22 16:01 Last Admin: 10/24/22 16:15 Dose: 6 mg Documented By: ANA Sodium Chloride (Nss) 1,000 mls @ 80 mls/hr IV .[id number] [facility] Stop: 10/25/22 16:59 Last Admin: 10/25/22 11:59 Dose: 80 mls/hr Documented By: Infusion: 10/25/22 04:45 Dose: 80 mls/hr Documented By: Admin: 10/24/22 16:15 Dose: 80 mls/hr Documented By: ANA Dexamethasone 4 mg/ Syringe 1 mls @ 1 mls/min IV TID [facility] Stop: 11/23/22 20:59 Last Admin: 10/25/22 13:30 Dose: 1 mls/min Documented By: Admin: 10/25/22 08:49 Dose: 1 mls/min Documented By: Admin: 10/24/22 22:00 Dose: 1 mls/min Documented By: MANUEL Insulin Glargine (Lantus Per Unit Charge) 10 units SQ HS [facility] Stop: 11/23/22 20:59 Last Admin: 10/24/22 21:57 Dose: 10 units Documented By: MANUEL Co-signed By: PAH Miscellaneous (Order Awaiting Action [Abiraterone [Zytiga] 500 Mg Tablet]) 1 each N/A QS [facility] Stop: 11/24/22 00:00 Last Admin: 10/25/22 07:12 Dose: Not Given Documented By: Admin: 10/25/22 00:29 Dose: Not Given Documented By: CLC Imaging Data Radiologist's Impression: Venous Doppler Study 10/24/22 12:00 RIGHT LOWER EXTREMITY VENOUS DOPPLER CLINICAL HISTORY: hist clot, right thigh pain COMPARISON STUDY: None available at time of interpretation. TECHNIQUE: Sonography of the deep venous system of the right lower extremity was performed. Compression and augmentation were evaluated. FINDINGS: The right common femoral, superficial femoral and popliteal veins were compressible. Augmentation was normal. Flow was shown within the deep calf vessels. IMPRESSION: No evidence of deep venous thrombus within the right lower extremity. ACT 112: Negative or not required by law. Electronically signed by: Americo Woodard M.D. 10/24/2022 2:00 PM Discharge Plan Visit Data Chief Complaint: Leg Injury/Pain Stated Complaint: R LEG PAIN ED Provider: Jesus Alberto Peralta Discharge Problem: Weakness, Right leg pain, Left leg pain, Failure of outpatient treatment, COVID-19, Spinal stenosis, Thrombocytopenia Patient Disposition: Admitted As Inpatient Condition: Fair Discharge Instructions Interventions: ED Discharge Assessment Last Done: 10/24/22 19:12 Spinal stenosis Qualifiers: Spinal region: unspecified Qualified Code(s): M48.00 - Spinal stenosis, site unspecified
[2022-10-24 12:23] LABS: Hematocrit (blood only) 43.1 % (42.0-52.0); Hemoglobin 14.7 g/dl (14.0-18.0); Mean Corpuscular Hemoglobin 31.6 pg (25.0-34.0); Mean Corpuscular Hgb Conc 34.1 g/dL (32.0-36.0); Mean Corpuscular Volume 92.7 fL (80.0-100.0); Mean Platelet Volume 11.3 fL (9.4-12.4); Platelet Count 85 K/uL (130-400); RDW Coefficient of Variation 13.2 % (11.5-14.5); RDW Standard Deviation 44.7 fL (36.4-46.3); Red Blood Count 4.65 M/uL (4.70-6.10); White Blood Count 6.58 K/ul (4.8-10.8)
[2022-10-24 12:32] LABS: Anion Gap 7 (3-11); BUN Creatinine Ratio 23.5 (10-20); Blood Urea Nitrogen 23 mg/dl (6-23); Carbon Dioxide 29 mmol/L (21-32); Chloride 98 mmol/L (98-107); Est GFR (African American) 85.8 ml/min; Est GFR (Non-African American) 74.1 ml/min; Glucose 246 mg/dl (70-99(Fasting)); Magnesium 1.7 mg/dl (1.7-2.4); Potassium 3.8 mmol/L (3.5-5.1); Sodium 134 mmol/L (136-145)
[2022-10-24 12:44] LABS: Prothrombin Time 11.2 Seconds (9.0-12.0)
--- NOTE | 2022-10-24 14:01 | Ultrasound Report ---
RIGHT LOWER EXTREMITY VENOUS DOPPLER CLINICAL HISTORY: hist clot, right thigh pain COMPARISON STUDY: None available at time of interpretation. TECHNIQUE: Sonography of the deep venous system of the right lower extremity was performed. Compress ion and augmentation were evaluated. FINDINGS: The right common femoral, superficial femoral and popliteal veins were compressible. Augme ntation was normal. Flow was shown within the deep calf vessels. IMPRESSION: No evidence of deep venous thrombus within the right lower extremity. ACT 112: Negative or not required by law. Electronically signed by: Americo Woodard M.D. 10/24/2022 2:00 PM
[2022-10-24] MEDS ORDERED: ALBUT/IPRATROP 3MG/0.5MG NEB 3 ML VIAL NEB STA (15:59)
[2022-10-24] MEDS ORDERED: DEXAMETHASONE SOD INJ 4 MG/ML VIAL IV STA (16:00)
--- NOTE | 2022-10-24 16:03 | History & Physical Report ---
Date of Service October 24, 2022 Assessment & Plan (1) Weakness: Plan: multifactorial - recent (or ongoing/current) COVID-19 infection and/or other new viral process; deconditioning; toxic effects from narcotics/baclofen; known lumbar foraminal/spinal stenosis; ?WEIGHTER process (ie CVA); adrenal crisis; other processes. stop oxycontin. stop oxycodone. stop baclofen. MRI Brain - r/o CVA. stress-dose steroids. PT, OT. ultimately will need to re-consult ortho-spine. (2) COVID-19: Plan: Patient initially tested + for COVID-19 in mid-September. He was hospitalized at that time and had acute hypoxic respiratory failure - treated with steroids, etc. He continues to test + on PCR testing. Interestingly he has had URI symptoms the last several days as well as cough/wheezing. His [employer] respiratory panel is negative for other viral pathogens. Additionally, I spoke with the pt's significant other, and he tested negative for COVID in September multiple times. However, he tested + for COVID THIS WEEK. Thus, has patient been re-infected? 1 month from the last infection would be unusual but not impossible. Or, are we simply seeing ongoing COVID symptoms since his original index admission 09/24/22?? To err on side of caution will continue airborne precautions. Stress-dose steroids with dexamethasone will help his wheezing as well as his lumbar spine. Duoneb now, then qid thereafter. Check pCXR now - r/o developing pneumonia. MRI brain (see below) will also show sinuses and determine if any acute sinusitis is present. (3) Spinal stenosis: Plan: Severe foraminal and central spinal stenosis on recent MRI l-spine. Seen by Dr Velazco's team during the prior hospitalization. Surgical intervention was offered but patient declined such. He was seen by pain management - baclofen added to oxycontin/oxycodone. This regimen is making him tired, and with likely underlying UMA, could be contributing to hypercapnea. Will stop these meds. Change to the following - * dexamethasone 4mg IV TID * gabapentin 100mg TID for neuropathic symptoms of legs * tylenol 500mg TID scheduled * k-pad heating pad * norco 7.5's prn * if pain is refractory - dilaudid 0.25mg q6h prn IV * if he needs long-acting pain meds consider nucynta ER BID Once other issues have been addressed reconsult Dr Velazco - patient now willing to undertake surgery. (4) Thrombocytopenia: Plan: Etiology? Patient has been thrombocytopenic since his COVID dx in mid-September. Platelets are now lower. Does he have a post-viral ITP? Other? check a peripheral smear in am. repeat CBC in am. (5) Upper respiratory infection: Plan: Patient with URI symptoms but also wheezing. See #2 above. Steroids, mucinex, flutter valve, bronchodilators, cxr, etc. Respiratory Bio[employer] noted - only + for COVID, no other pathogens. (6) HTN (hypertension): Plan: BPs are low-normal today, likely due to volume depletion/addisonian type picture. HOLD amlodipine. HOLD lisinopril. Continue metoprolol. (7) Anxiety: Plan: Cont sertraline. (8) Prostate cancer: Plan: Stage 4 with bony mets. On Zytiga and prednisone chronically. Follows with Dr Olivia Liriano - [facility]. MRI brain ordered due to focal weakness of mainly left leg. This will rule out CVA but also brain mets. (9) Depression: Plan: Continue sertraline. (10) DMII (diabetes mellitus, type 2): Plan: a1c 7.7% 09/24/22. Check BSGs ac/hs. add lantus HS. add novolog SSI. Hold PO meds. (11) Atrial fibrillation: Plan: Permanent, rates controlled. Cont metoprolol. He is NOT on chronic anticoagulation. (12) Hypercholesterolemia: Plan: Cont lipitor. (13) Prostate cancer metastatic to bone: Plan: As above. (14) Chronic steroid use: Plan: Prednisone 5mg daily for prostate cancer with bony mets. Will employ dexamethasone for stress dose steroids. (15) Acute deep vein thrombosis (DVT) of distal vein of left lower extremity: Plan: 10/12/22 - doppler of LLE showed "Nonocclusive thrombus in the left popliteal vein as well as one of 2 peroneal veins." Due to low platelets, h/o hematuria, and possible chronic nature of the DVT a decision was made not to anticoagulate. RLE doppler study today negative for DVT. (16) Candidiasis of mouth and esophagus: Plan: Nystatin 5ml ac/hs swish/swallow. (17) DVT prophylaxis: Plan: Ideally he is on chemical means due to recently discovered LLE DVT, recent COVID infection, immobility, etc. However, platelets are in the 80s today. Repeat CBC in am. If platelets are improved add chemical means. Plan Updated pt's José by phone extensively. Order PT/OT evals. History of Present Illness Chief Complaint: weakness/pain in legs Primary Care Provider: Kings Rios, DO 76yo male with stage 4 prostate ca with mets to the bones on chronic prednisone 5mg/day and Zytiga, permanent atrial fibrillation, T2DM, HTN, DVT, lumbar spinal stenosis, and recent COVID-19 infection requiring hospitalization from 09/24 to 09/27. The patient also was hospitalized from 10/12 to 10/19 due to low back pain and b/l leg pain L>R. The leg pains were attributed to severe lumbar foraminal and central spinal stenosis as well as L3-L4 herniated disc on the left. He was seen by Dr Jose Velazco, [facility] [place], and surgery (decompression/fusion procedure) was offered to him but he declined at that time. He discharged to [facility] on 10/19 for rehab. Records suggest that he had a URI at time of discharge and was placed on amoxicillin for such. He also discharged on oxycontin BID, oxycodone prn, and baclofen TID. While at rehab things did not go well. He was very tired & fatigued, was unable to participate in PT/OT, his appetite was not robust, and he continued with low back pain and b/l leg pain. The left leg weakness is one of his greatest concerns. During my visit with him in the ER he fell asleep multiple times. He agreed that the pain medications - although helpful - cause him to feel sleepy. He also reports wheezing, cough, congestion, and sore throat for several days. He states these symptoms started upon arrival at [facility]. No fevers to his knowledge. Allergies Allergy/AdvReac Type Severity Reaction Status Date / Time cat dander Allergy Severe CAN CAUSE Verified 09/24/22 00:30 ASTHMA ATTACK-itchy eyes, congestion Home Medications Medication Instructions Recorded Confirmed Type abiraterone 500 mg tablet (Zytiga) 1,000 mg PO QAM 07/13/18 10/24/22 History calcium carbonate 500 mg-vitamin 1 tab PO QAM 07/13/18 10/24/22 History D3 5 mcg (200 unit) tablet (Calcium 500 + D) leuprolide (4 month) 30 mg (4 30 mg IM Q16W #1 ea 07/28/19 10/24/22 Rx month) intramuscular syringe kit (Lupron Depot) sertraline 100 mg tablet 100 mg PO QAM #90 tabs 09/01/19 10/24/22 Rx oxycodone 5 mg tablet 5 mg PO Q4H PRN Pain 03/16/20 10/24/22 History metoprolol succinate 200 mg 200 mg PO DAILY #90 tabs 07/15/22 10/24/22 Rx tablet,extended release 24 hr amlodipine 10 mg tablet 10 mg PO QAM #90 tabs 07/18/22 10/24/22 Rx lisinopril 20 mg tablet 20 mg PO DAILY #90 tabs 07/23/22 10/24/22 Rx omeprazole 20 mg delayed 20 mg PO QAM #90 tabs 09/03/22 10/24/22 Rx release,disintegrating tablet atorvastatin 20 mg tablet 20 mg PO QAM #90 tabs 09/18/22 10/24/22 Rx acetaminophen 500 mg tablet 1,000 mg PO DIRECTED PRN Pain 09/24/22 10/24/22 History (Tylenol Extra Strength) denosumab 120 mg/1.7 mL (70 mg/mL) 120 mg subcut DIRECTED 09/24/22 10/24/22 History subcutaneous solution (Xgeva) multivitamin with minerals 1 tab PO DAILY 09/24/22 10/24/22 History ondansetron 4 mg disintegrating 4 mg PO Q8H PRN NAUSEA/VOMITING 09/24/22 10/24/22 History tablet triamcinolone acetonide 0.1 % 1 applic topical DIRECTED 09/24/22 10/24/22 History topical cream amoxicillin 875 mg tablet 875 mg PO BIDM #10 tabs 10/19/22 10/24/22 Rx baclofen 10 mg tablet 10 mg PO TID #0 tabs 10/19/22 10/24/22 Rx loratadine 10 mg tablet (Wal-itin) 10 mg PO DAILY #0 tabs 10/19/22 10/24/22 Rx oxycodone 10 mg tablet,crush 10 mg PO BID #10 tabs 10/19/22 10/24/22 Rx resistant,extended release 12 hr (OxyContin) prednisone 10 mg tablet 10 mg PO TID #10 tabs 10/19/22 10/24/22 Rx glimepiride 2 mg tablet 2 mg PO QAM 10/24/22 10/24/22 History Past Med/Surg History Medical History (Updated 10/25/22 @ 04:59 by Patrice Banks MD) Acute deep vein thrombosis (DVT) of distal vein of left lower extremity 09/2022 Ambulatory dysfunction Androgen-induced osteoporosis Atrial fibrillation DX 2019 - FOLLOWS W/ DR. GRANADOS Chronic steroid use PROSTATE CANCER COVID-19 09/2022 requiring hospitalization DMII (diabetes mellitus, type 2) Fatigue Hydronephrosis of right kidney Hyperlipidemia IBS (irritable bowel syndrome) Insomnia Resolved Kidney stones Lumbar spondylosis Osteoarthritis Prostate cancer (11/03/14) Prostate nodule Psychosis Had hx of depression with psychotic episode - resolved Renal insufficiency Sacral lesion Thrombocytopenia Ureter injury OBSTRUCTION OF RT URETER 03/14 PROSTATE CA Urinary frequency Urinary incontinence Urge incontinence Urinary retention Resolved Urinary tract infection Resolved Surgical History History of cataract surgery 2018 - Bilat History of colonoscopy 2011 (due in 2021) History of prostate biopsy 2014 History of tonsillectomy as a child History of tooth extraction in age 19's S/P TURP 2014 Family History Mother , Passed age 60 of sepsis Gallbladder disease Mental disorder Psychological disorder Father , Passed age 89 of sepsis (infected bladder stones) Congestive heart failure Bladder stones Prostate cancer no treatment needed Brother Heart failure Kidney stones Kidney disease Bladder cancer, Onset Age: 75 Myocardial infarction Grandmother (Paternal) , Passed age 93 of old age Breast cancer, Onset Age: 40 double mastectomy and then did well Sister , Passed age 2 of pneumonia No problems noted. Other Has no children Denies family history of Colon cancer Ovarian cancer Social History (Updated 10/24/22 @ 21:16 by Patrice Banks MD) Smoking Status: Former smoker Tobacco Type: Cigarettes Age Started Using Tobacco: 20; Age Quit Using Tobacco: 39; packs per day: 0.5; Second Hand Exposure: No; Do You Dip or Chew Tobacco: No; Hx Alcohol Use: No Hx Substance Use: No Preferred Language: [place] Islander Communication Ability: Effective Communication Tools: Other Visual Impairment: Limited Hearing Ability: Normal Junior Project Coordinator Required: No Beliefs That Will Affect Care: None marital status: Current Living Situation: Family and Significant Other Current Living Situation Comment: LIVES W/ JOSÉ - current occupational status: retired 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 Other Information That Helps Us Care for You: No Feels Safe at Home: Yes Safety Concerns: Feels Safe At This Time Childhood Exposure to Second-Hand Smoke: No Diet: diabetic caffeine: Yes (1 cup of coffee/day ) during the past year weight has: remained stable Dental Care, Regularly: No Physical Activity Frequency: Does not Exercise Seatbelt Use: always Sunscreen Use: Yes Assistive Devices: Walker Review of Systems Review of Systems: gen - fatigue, generalized weakness and focal weakness (see below); no fevers or chills; poor appetite last few days eyes - irritated left eye HENT - significant sore throat, no ear pain, no nasal congestion CV - no chest pain, no orthopnea pulm - cough/congestion/wheezing; no dyspnea at rest GI - no nausea or emesis; no abd pain - denies dysuria musculo - low back pain, b/l leg pain worse on left endo - diabetic, BSGs? skin - denies rash neuro - denies headache Physical Exam Physical Exam: gen - very sleepy, fell asleep several times; looks ill but nontoxic eyes - conjunctival irritation left eye HENT - TMs clear b/l; nose clear; MM slightly dry; erythematous throat with occasional ulcerations and ?thrush neck - no JVD heart - irregularly irregular, s1 s2, no murmur lungs - wheezes b/l, no rales, coughing, no distress abd - soft NT ND BS+ ext - no edema, pulses 2+ b/l psych - sleepy but able to give history and answer questions, oriented to person/place neuro - b/l hip flexion near 5/5; with actively flexing the left hip he reports pain in the left low back radiating down the left leg (mainly on side of left leg); dorsiflexion/plantarflexion of b/l feet 5/5 (no foot drop); b/l arm flexion/extension 5/5; handgrip 5/5 b/l skin - no rash, no petechiae Results & Data Results & Data Vital Signs (Past 12 Hours) Vital Signs Temp Pulse Resp BP Pulse Ox O2 Del Method 10/24/22 15:00 91 H 17 110/72 95 Room Air 10/24/22 14:30 86 20 132/78 95 Room Air 10/24/22 14:11 89 21 129/83 94 Room Air 10/24/22 13:00 79 21 128/74 95 Room Air 10/24/22 12:30 86 23 119/78 94 Room Air 10/24/22 12:23 90 21 95 10/24/22 12:24 83 10/24/22 11:48 Room Air 10/24/22 11:48 36.7 C 89 22 111/86 95 Room Air Laboratory Results Laboratory Results - last 24 hr 10/24/22 10/24/22 10/24/22 11:55 11:55 11:55 WBC 6.58 RBC 4.65 L Hgb 14.7 Hct 43.1 MCV 92.7 MCH 31.6 MCHC 34.1 RDW Std Deviation 44.7 RDW Coeff of Tramaine 13.2 Plt Count 85 L MPV 11.3 PT 11.2 INR 1.0 APTT 27.0 PTT Ratio 1.0 VBG pH VBG pCO2 VBG pO2 VBG HCO3 VBG O2 Saturation VBG Base Excess Sodium 134 L Potassium 3.8 Chloride 98 Carbon Dioxide 29 Anion Gap 7 BUN 23 Creatinine 0.98 Est Cr Clr Drug Dosing Not Reportable Est GFR ( Amer) 85.8 Est GFR (Non-Af Amer) 74.1 BUN/Creatinine Ratio 23.5 H Glucose 246 H POC Glucose Calcium 8.0 L Magnesium 1.7 TSH Adenovirus (PCR) Anaplasma Smear A. phagocytophilum DNA Babesia Smear Babesia microti DNA PCR B. pertussis DNA (PCR) B.parapertussis DNA PCR C. pneumoniae DNA (PCR) Coronavirus OC43 (PCR) Coronavirus HKU1 (PCR) Coronavirus 229E (PCR) SARS-CoV-2 (PCR) Coronavirus NL63 (PCR) Human Metapneumovir PCR Influenza Type A (PCR) Influenza Type B (PCR) M. pneumoniae (PCR) Parainfluenza 1 (PCR) Parainfluenza 2 (PCR) Parainfluenza 3 (PCR) Parainfluenza 4 (PCR) RSV (PCR) Entero/Rhino (PCR) 10/24/22 10/24/22 10/24/22 12:00 14:57 14:57 WBC RBC Hgb Hct MCV MCH MCHC RDW Std Deviation RDW Coeff of Tramaine Plt Count MPV PT INR APTT PTT Ratio VBG pH VBG pCO2 VBG pO2 VBG HCO3 VBG O2 Saturation VBG Base Excess Sodium Potassium Chloride Carbon Dioxide Anion Gap BUN Creatinine Est Cr Clr Drug Dosing Est GFR ( Amer) Est GFR (Non-Af Amer) BUN/Creatinine Ratio Glucose POC Glucose Calcium Magnesium TSH Adenovirus (PCR) Anaplasma Smear See Comment A. phagocytophilum DNA Pending Babesia Smear See Comment Babesia microti DNA PCR Pending B. pertussis DNA (PCR) B.parapertussis DNA PCR C. pneumoniae DNA (PCR) Coronavirus OC43 (PCR) Coronavirus HKU1 (PCR) Coronavirus 229E (PCR) SARS-CoV-2 (PCR) Coronavirus NL63 (PCR) Human Metapneumovir PCR Influenza Type A (PCR) Influenza Type B (PCR) M. pneumoniae (PCR) Parainfluenza 1 (PCR) Parainfluenza 2 (PCR) Parainfluenza 3 (PCR) Parainfluenza 4 (PCR) RSV (PCR) Entero/Rhino (PCR) 10/24/22 10/24/22 10/24/22 14:59 16:20 17:01 WBC RBC Hgb Hct MCV MCH MCHC RDW Std Deviation RDW Coeff of Tramaine Plt Count MPV PT INR APTT PTT Ratio VBG pH 7.41 VBG pCO2 48 VBG pO2 26 VBG HCO3 30 VBG O2 Saturation < 60.0 VBG Base Excess 4.8 Sodium Potassium Chloride Carbon Dioxide Anion Gap BUN Creatinine Est Cr Clr Drug Dosing Est GFR ( Amer) Est GFR (Non-Af Amer) BUN/Creatinine Ratio Glucose POC Glucose Calcium Magnesium TSH 1.264 Adenovirus (PCR) Not Detected Anaplasma Smear A. phagocytophilum DNA Babesia Smear Babesia microti DNA PCR B. pertussis DNA (PCR) Not Detected B.parapertussis DNA PCR Not Detected C. pneumoniae DNA (PCR) Not Detected Coronavirus OC43 (PCR) Not Detected Coronavirus HKU1 (PCR) Not Detected Coronavirus 229E (PCR) Not Detected SARS-CoV-2 (PCR) DETECTED A* Coronavirus NL63 (PCR) Not Detected Human Metapneumovir PCR Not Detected Influenza Type A (PCR) Not Detected Influenza Type B (PCR) Not Detected M. pneumoniae (PCR) Not Detected Parainfluenza 1 (PCR) Not Detected Parainfluenza 2 (PCR) Not Detected Parainfluenza 3 (PCR) Not Detected Parainfluenza 4 (PCR) Not Detected RSV (PCR) Not Detected Entero/Rhino (PCR) Not Detected 10/24/22 10/24/22 19:22 20:36 WBC RBC Hgb Hct MCV MCH MCHC RDW Std Deviation RDW Coeff of Tramaine Plt Count MPV PT INR APTT PTT Ratio VBG pH VBG pCO2 VBG pO2 VBG HCO3 VBG O2 Saturation VBG Base Excess Sodium Potassium Chloride Carbon Dioxide Anion Gap BUN Creatinine Est Cr Clr Drug Dosing Est GFR ( Amer) Est GFR (Non-Af Amer) BUN/Creatinine Ratio Glucose POC Glucose 228 H 295 H Calcium Magnesium TSH Adenovirus (PCR) Anaplasma Smear A. phagocytophilum DNA Babesia Smear Babesia microti DNA PCR B. pertussis DNA (PCR) B.parapertussis DNA PCR C. pneumoniae DNA (PCR) Coronavirus OC43 (PCR) Coronavirus HKU1 (PCR) Coronavirus 229E (PCR) SARS-CoV-2 (PCR) Coronavirus NL63 (PCR) Human Metapneumovir PCR Influenza Type A (PCR) Influenza Type B (PCR) M. pneumoniae (PCR) Parainfluenza 1 (PCR) Parainfluenza 2 (PCR) Parainfluenza 3 (PCR) Parainfluenza 4 (PCR) RSV (PCR) Entero/Rhino (PCR) Diagnostic Findings Venous Doppler Study 10/24/22 12:00 RIGHT LOWER EXTREMITY VENOUS DOPPLER CLINICAL HISTORY: hist clot, right thigh pain COMPARISON STUDY: None available at time of interpretation. TECHNIQUE: Sonography of the deep venous system of the right lower extremity was performed. Compression and augmentation were evaluated. FINDINGS: The right common femoral, superficial femoral and popliteal veins were compressible. Augmentation was normal. Flow was shown within the deep calf vessels. IMPRESSION: No evidence of deep venous thrombus within the right lower extremity. ACT 112: Negative or not required by law. Electronically signed by: Americo Woodard M.D. 10/24/2022 2:00 PM Chest X-Ray 10/24/22 17:28 XR chest 1V portable HISTORY: 76 years-old Male acute bronchitis, wheezing COMPARISON: 09/24/2022 TECHNIQUE: AP view of the chest FINDINGS: Cardiac silhouette is enlarged. Atherosclerosis of the aorta. Moderate right hemidiaphragmatic elevation. Subsegmental bibasilar densities again noted. No pneumothorax or pleural effusion. The bones appear normal. IMPRESSION: Unchanged right hemidiaphragmatic elevation with bibasilar atelectasis. ACT 112: Negative or not required by law. The above report was generated using voice recognition software. It may contain grammatical, syntax or spelling errors. Electronically signed by: Samuel Nolan M.D. 10/24/2022 6:25 PM Code Status & VTE Plan Code Status DNR/DNI VTE Prophylaxis Plan VTE Prophylaxis will be ordered: No Reason for no VTE drug order: Contraindicated PG Care Time/CCT Total # of Minutes Spent Total Time Spent with Patient: Total time spent is greater than 50% in coordination of care (as documented) at patient's floor/unit and/or counseling patient: Coding Level of Care Code 16166 INT INP/OBS CARE 3/75MIN Diagnoses Weakness R53.1 COVID-19 U07.1 Spinal stenosis M48.00 Spinal region: unspecified Thrombocytopenia D69.6 Upper respiratory infection J06.9 HTN (hypertension) I10 Anxiety F41.9 Prostate cancer C61 Depression F32.9 DMII (diabetes mellitus, type 2) E11.9 Atrial fibrillation I48.91 Hypercholesterolemia E78.00 Prostate cancer metastatic to bone C61; C79.51 Chronic steroid use Acute deep vein thrombosis (DVT) of distal vein of left lower extremity I82.4Z2 Candidiasis of mouth and esophagus B37.81; B37.0 DVT prophylaxis Z29.9 (3) Spinal stenosis Spinal region: unspecified Qualified Code(s): M48.00 - Spinal stenosis, site unspecified
[2022-10-24] MEDS: SODIUM CHLORIDE 0.9% 1,000 ML IV SCH (16:15)
[2022-10-24 17:11] LABS: Base Excess VBG 4.8 mEq/L; HCO3 VBG 30 mmol/L; Oxygen Saturation VBG < 60.0 %; PCO2 VBG 48 mmHg (38-50); PO2 VBG 26 mmHg; pH VBG 7.41 (7.36-7.41)
[2022-10-24 18:02] LABS: Adenovirus PCR Not Detected (NotDetected); Bordetella parapertussis PCR Not Detected (NotDetected); Bordetella pertussis PCR Not Detected (NotDetected); Chlamydia pneumoniae PCR Not Detected (NotDetected); Coronavirus 229E PCR Not Detected (NotDetected); Coronavirus HKU1 PCR Not Detected (NotDetected); Coronavirus NL63 PCR Not Detected (NotDetected); Coronavirus OC43PCR Not Detected (NotDetected); Human Metapneumovirus PCR Not Detected (NotDetected); Influenza A PCR Not Detected (NotDetected); Influenza B PCR Not Detected (NotDetected); Mycoplasma pneumoniae PCR Not Detected (NotDetected); Parainfluenza Virus 1 PCR Not Detected (NotDetected); Parainfluenza Virus 2 PCR Not Detected (NotDetected); Parainfluenza Virus 3 PCR Not Detected (NotDetected); Parainfluenza Virus 4 PCR Not Detected (NotDetected); Respiratory Syncytial VirusPCR Not Detected (NotDetected); Rhinovirus/Enterovirus PCR Not Detected (NotDetected)
[2022-10-24 18:11] LABS: Coronavirus CoV-2 (COVID19)PCR DETECTED (NotDetected)
--- NOTE | 2022-10-24 18:27 | XRay Report ---
XR chest 1V portable HISTORY: 76 years-old Male acute bronchitis, wheezing COMPARISON: 09/24/2022 TECHNIQUE: AP view of the chest FINDINGS: Cardiac silhouette is enlarged. Atherosclerosis of the aorta. Moderate right hemidiaphragmatic elevat ion. Subsegmental bibasilar densities again noted. No pneumothorax or pleural effusion. The bones reji ear normal. IMPRESSION: Unchanged right hemidiaphragmatic elevation with bibasilar atelectasis. ACT 112: Negative or not required by law. The above report was generated using voice recognition software. It may contain grammatical, syntax o r spelling errors. Electronically signed by: Samuel Nolan M.D. 10/24/2022 6:25 PM
[2022-10-24] MEDS ORDERED: HYDROmorphone INJ 0.5 MG/0.5 ML SYR IV PRN (19:16)
[2022-10-24] MEDS ORDERED: NITROGLYCERIN SL 0.4 MG/TAB TAB SL PRN (19:16)
[2022-10-24] MEDS ORDERED: LANTUS PER UNIT CHARGE SQ SCH (21:00)
[2022-10-24] MEDS: ALBUT/IPRATROP 3MG/0.5MG NEB 3 ML VIAL NEB SCH (21:46)
[2022-10-24] MEDS: INSULIN ASPART PER UNIT CHARGE SC SCH (21:57)
[2022-10-24] MEDS: ACETAMINOPHEN 500 MG TAB PO SCH (21:59)
[2022-10-24] MEDS: GABAPENTIN 100 MG CAP PO SCH (22:00)
[2022-10-24] MEDS: dexAMETHasone 4 MG in SYRINGE 0 ML IV SCH (22:00)
[2022-10-24] MEDS: guaiFENesin 600 MG TABCR PO SCH (22:00)
[2022-10-24] MEDS: NYSTATIN SUSP 500,000 U/5 ML UDC PO SCH (22:00)
[2022-10-24] MEDS: PANTOprazole 40 MG TAB PO SCH (22:01)
[2022-10-24] MEDS: TRIAMCINOLONE ACET 0.1% CR 15 GM TUBE TOP SCH (22:01)
--- NOTE | 2022-10-24 23:58 | Magnetic Resonance Report ---
MRI OF THE BRAIN WITHOUT CONTRAST CLINICAL HISTORY: recent covid, b/l leg weakness L>R; r/oCVA COMPARISON STUDY: Head CT August 14, 2022. TECHNIQUE: Utilizing a 1.5 Syeda magnet and dedicated coil, multiplanar, multiecho imaging of the bra in was performed without IV contrast. FINDINGS: There are no foci of restricted diffusion to suggest acute infarct. No acute intracranial h emorrhage, midline shift or mass effect is present. Ventricular system is normal. Basal cisterns are patent. There are no extra-axial collections. Flow-voids for the major intracranial vessels are prese nt. No intracranial masses identified on this unenhanced exam. White matter T2 hyperintense foci sugg est small vessel disease. Calvarial signal is within normal limits. There is mild sinus mucosal thick ening. IMPRESSION: No acute intracranial findings. ACT 112: Negative or not required by law. Electronically signed by: Americo Woodard M.D. 10/24/2022 11:56 PM
[2022-10-25 07:14] LABS: Hematocrit (blood only) 43.3 % (42.0-52.0); Mean Corpuscular Hemoglobin 31.8 pg (25.0-34.0); Mean Corpuscular Hgb Conc 34.6 g/dL (32.0-36.0); Mean Corpuscular Volume 91.9 fL (80.0-100.0); Mean Platelet Volume 10.8 fL (9.4-12.4); Platelet Count 89 K/uL (130-400); RDW Coefficient of Variation 13.1 % (11.5-14.5); RDW Standard Deviation 44.3 fL (36.4-46.3); Red Blood Count 4.71 M/uL (4.70-6.10); White Blood Count 7.26 K/ul (4.8-10.8)
[2022-10-25 07:20] LABS: Basophils # (auto) 0.05 K/uL (0.00-0.20); Basophils % (auto) 0.7 %; Eosinophils # (auto) 0.04 K/uL (0.00-0.50); Eosinophils % (auto) 0.6 %; Immature Granulocytes # (auto) 0.36 K/uL (0.01-0.20); Lymphocytes # (auto) 0.63 K/uL (1.20-3.40); Lymphocytes % (auto) 8.7 %; Monocytes # (auto) 0.32 K/uL (0.11-0.59); Monocytes % (auto) 4.4 %; Neutrophils # (auto) 5.86 K/uL (1.40-6.50); Neutrophils % (auto) 80.6 %; Polychromasia 1+
[2022-10-25] MEDS: ALBUT/IPRATROP 3MG/0.5MG NEB 3 ML VIAL NEB SCH ×3 (07:27→15:20)
[2022-10-25 07:35] LABS: BUN Creatinine Ratio 18.9 (10-20); Calcium 7.6 mg/dl (8.6-10.3); Creatinine Clr Calc Pharmacy 66.6 ml/min; Est GFR (African American) 78.1 ml/min; Est GFR (Non-African American) 67.4 ml/min; Potassium 4.1 mmol/L (3.5-5.1)
[2022-10-25] MEDS: INSULIN ASPART PER UNIT CHARGE SC SCH ×4 (07:57→20:53)
[2022-10-25] MEDS: LANTUS PER UNIT CHARGE SQ SCH ×2 (08:34→20:53)
[2022-10-25] MEDS: ACETAMINOPHEN 500 MG TAB PO SCH ×3 (08:46→20:31)
[2022-10-25] MEDS: TRIAMCINOLONE ACET 0.1% CR 15 GM TUBE TOP SCH ×2 (08:46→20:33)
[2022-10-25] MEDS: PANTOprazole 40 MG TAB PO SCH ×2 (08:47→20:32)
[2022-10-25] MEDS: NYSTATIN SUSP 500,000 U/5 ML UDC PO SCH ×4 (08:47→20:32)
[2022-10-25] MEDS: GABAPENTIN 100 MG CAP PO SCH ×3 (08:47→20:32)
[2022-10-25] MEDS: guaiFENesin 600 MG TABCR PO SCH ×2 (08:48→20:32)
[2022-10-25] MEDS: CALCIUM 600MG + VIT D 400 IU TAB PO SCH (08:48)
[2022-10-25] MEDS: METOPROLOL SUCC 50MG EXT REL TAB PO SCH (08:48)
[2022-10-25] MEDS: ATORVASTATIN 20 MG TAB PO SCH (08:48)
[2022-10-25] MEDS: SERTRALINE HCL 100 MG TABLET PO SCH (08:48)
[2022-10-25] MEDS: LORATADINE 10 MG TAB PO SCH (08:48)
[2022-10-25] MEDS: CEROVITE ADV FORMULA TAB PO SCH (08:49)
[2022-10-25] MEDS: dexAMETHasone 4 MG in SYRINGE 0 ML IV SCH ×2 (08:49→13:30)
[2022-10-25] MEDS: HYDROCODONE/ACETAMINOPHEN 7.5/325MG TAB PO PRN (08:53)
[2022-10-25] MEDS: SODIUM CHLORIDE 0.9% 1,000 ML IV SCH (11:59)
[2022-10-25] MEDS: ALBUTEROL HFA 8 GM INHALER INH SCH (18:24)
[2022-10-25] MEDS: IPRATROPIUM BROMIDE HFA INHALER INH SCH (18:25)
--- NOTE | 2022-10-25 18:31 | Hospitalist Progress Note ---
Date of Service October 25, 2022 Assessment & Plan (1) Weakness: Plan: multifactorial - recent (or ongoing/current) COVID-19 infection; deconditioning; toxic effects from narcotics/baclofen; known lumbar foraminal/spinal stenosis; adrenal crisis; other processes. much improved today s/p stress dose steroids overnight. MRI Brain neg for stroke. Oxycontine/oxycodone and baclofen stopped. (2) COVID-19: Plan: Patient initially tested + for COVID-19 in mid-September. He was hospitalized at that time and had acute hypoxic respiratory failure - treated with steroids, etc. He continues to test + on PCR testing. Interestingly he has had URI symptoms the last several days as well as cough/wheezing. His [employer] respiratory panel is negative for other viral pathogens. Additionally, I spoke with the pt's significant other, and he tested negative for COVID in September multiple times. However, he tested + for COVID THIS WEEK. Thus, has patient been re-infected? 1 month from the last infection would be unusual but not impossible. Or, are we simply seeing ongoing COVID symptoms since his original index admission 09/24/22?? Continue airborne precautions. Cont dexamethasone but lower from TID to BID dosing. This will help his wheezing as well as his lumbar spine. Change bronchodilators to BID dosing. (3) Spinal stenosis: Plan: Severe foraminal and central spinal stenosis on recent MRI l-spine. Seen by Dr Velazco's team during the prior hospitalization. Surgical intervention was offered but patient declined such. He is now willing to undergo surgery. I spoke with Dr Velazco from ortho-spine. Dr Velazco will see him Friday in consult and determine timing of any potential surgery. In meantime continue dexamethasone, gabapentin, tylenol, norco prn, dilaudid prn. Gentle PT/OT. (4) Thrombocytopenia: Plan: Etiology? Patient has been thrombocytopenic since his COVID dx in mid-September. Platelets are now lower. Does he have a post-viral ITP? Other? peripheral smear unrevealing. repeat CBC in am. check an immature platelet fraction as well. (5) Upper respiratory infection: Plan: Patient with URI symptoms but also wheezing. See #2 above. Steroids, mucinex, flutter valve, bronchodilators, cxr, etc. Respiratory [employer] noted --> only + for COVID, no other pathogens. (6) HTN (hypertension): Plan: BPs are still controlled despite amlodipine and lisinopril on hold. Continue metoprolol. (7) Anxiety: Plan: Cont sertraline. (8) Prostate cancer: Plan: Stage 4 with bony mets. On Zytiga and prednisone chronically. Follows with Dr Olivia Liriano - [facility]. MRI Brain neg for cva or metastatic disease. (9) Depression: Plan: Continue sertraline. (10) DMII (diabetes mellitus, type 2): Plan: a1c 7.7% 09/24/22. uncontrolled due to steroids. adjust lantus adjust novolog (11) Atrial fibrillation: Plan: Permanent, rates controlled. Cont metoprolol. He is NOT on chronic anticoagulation. (12) Hypercholesterolemia: Plan: Cont lipitor. (13) Prostate cancer metastatic to bone: Plan: As above. (14) Chronic steroid use: Plan: Prednisone 5mg daily for prostate cancer with bony mets. Will employ dexamethasone for stress dose steroids. (15) Acute deep vein thrombosis (DVT) of distal vein of left lower extremity: Plan: 10/12/22 - doppler of LLE showed "Nonocclusive thrombus in the left popliteal vein as well as one of 2 peroneal veins." Due to low platelets, h/o hematuria, and possible chronic nature of the DVT a decision was made not to anticoagulate. RLE doppler study negative for DVT this admission. (16) Candidiasis of mouth and esophagus: Plan: Cont Nystatin 5ml ac/hs swish/swallow. (17) DVT prophylaxis: Plan: platelets are mildly low but stable high risk of DVT - start heparin TID daily platelet count Plan Updated pt's José by phone extensively yesterday pm. Admission and Anticipated Discharge Date Admission Date: October 24, 2022 Subjective patient reports feeling better today still very limited in mobility due to back and LLE pain however, at rest, he is comfortable still with cough but not as bad sore throat is improved eating is better today denies dyspnea at rest feels that current level of pain control for his back is adequate he does admit he was unable to truly participate with PT today during his PT session because of pain feels more awake/alert today Review of Systems Review of Systems: gen - no fevers or chills cv - no orthopnea pulm - no dyspnea at rest GI - no nausea/emesis Physical Exam Physical Exam: gen - looks better today, NAD eyes - conjunctival irritation left eye improved mouth - MM more moist today neck - no JVD heart - irregularly irregular, s1 s2, no murmur lungs - wheezes improved b/l, no rales abd - soft NT ND BS+ ext - no edema, pulses 2+ b/l Results & Data Results & Data Vital Signs (Past 12 Hours) Vital Signs Temp Pulse Pulse Pulse Resp BP Pulse Ox 10/25/22 18:25 100 H 18 91 10/25/22 16:31 36.8 C 103 H 18 102/68 93 10/25/22 15:43 92 H 10/25/22 15:21 90 18 93 10/25/22 11:45 36.6 C 101 H 21 117/79 93 10/25/22 11:18 93 H 18 91 10/25/22 10:00 95 H 10/25/22 07:29 36.5 C 95 H 18 138/92 100 10/25/22 07:27 114 H 18 96 O2 Del Method 10/25/22 18:25 Room Air 10/25/22 16:31 Room Air 10/25/22 15:43 10/25/22 15:21 Room Air 10/25/22 11:45 Room Air 10/25/22 11:18 Room Air 10/25/22 10:00 10/25/22 07:29 Room Air 10/25/22 07:27 Room Air Laboratory Results Laboratory Results - last 24 hr 10/24/22 10/24/22 10/24/22 19:22 20:36 Unknown WBC RBC Hgb Hct MCV MCH MCHC RDW Std Deviation RDW Coeff of Tramaine Plt Count MPV Immature Gran % (Auto) Neut % (Auto) Lymph % (Auto) [place] % (Auto) Eos % (Auto) Baso % (Auto) Neut # (Auto) Lymph # (Auto) [place] # (Auto) Eos # (Auto) Baso # (Auto) Immature Gran # (Auto) Polychromasia Peripher Smr Path Cons Sodium Potassium Chloride Carbon Dioxide Anion Gap BUN Creatinine Est Cr Clr Drug Dosing Est GFR ( Amer) Est GFR (Non-Af Amer) BUN/Creatinine Ratio Glucose POC Glucose 228 H 295 H Calcium Nasal Screen MRSA (PCR) Negative 10/25/22 10/25/22 10/25/22 05:57 05:57 07:26 WBC 7.26 RBC 4.71 Hgb 15.0 Hct 43.3 MCV 91.9 MCH 31.8 MCHC 34.6 RDW Std Deviation 44.3 RDW Coeff of Tramaine 13.1 Plt Count 89 L MPV 10.8 Immature Gran % (Auto) 5.0 Neut % (Auto) 80.6 Lymph % (Auto) 8.7 [place] % (Auto) 4.4 Eos % (Auto) 0.6 Baso % (Auto) 0.7 Neut # (Auto) 5.86 Lymph # (Auto) 0.63 L [place] # (Auto) 0.32 Eos # (Auto) 0.04 Baso # (Auto) 0.05 Immature Gran # (Auto) 0.36 H Polychromasia 1+ Peripher Smr Path Cons Sodium 135 L Potassium 4.1 Chloride 101 Carbon Dioxide 23 Anion Gap 11 BUN 20 Creatinine 1.06 Est Cr Clr Drug Dosing 66.6 Est GFR ( Amer) 78.1 Est GFR (Non-Af Amer) 67.4 BUN/Creatinine Ratio 18.9 Glucose 276 H POC Glucose 266 H Calcium 7.6 L Nasal Screen MRSA (PCR) 10/25/22 10/25/22 11:43 16:28 WBC RBC Hgb Hct MCV MCH MCHC RDW Std Deviation RDW Coeff of Tramaine Plt Count MPV Immature Gran % (Auto) Neut % (Auto) Lymph % (Auto) [place] % (Auto) Eos % (Auto) Baso % (Auto) Neut # (Auto) Lymph # (Auto) [place] # (Auto) Eos # (Auto) Baso # (Auto) Immature Gran # (Auto) Polychromasia Peripher Smr Path Cons Sodium Potassium Chloride Carbon Dioxide Anion Gap BUN Creatinine Est Cr Clr Drug Dosing Est GFR ( Amer) Est GFR (Non-Af Amer) BUN/Creatinine Ratio Glucose POC Glucose 252 H 246 H Calcium Nasal Screen MRSA (PCR) PG Care Time/CCT Total # of Minutes Spent Total Time Spent with Patient: Total time spent is greater than 50% in coordination of care (as documented) at patient's floor/unit and/or counseling patient: Coding Level of Care Code 67373 SUB INP/OBS CARE 2/35MIN Diagnoses Weakness R53.1 COVID-19 U07.1 Spinal stenosis M48.00 Spinal region: unspecified Thrombocytopenia D69.6 Upper respiratory infection J06.9 HTN (hypertension) I10 Anxiety F41.9 Prostate cancer C61 Depression F32.9 DMII (diabetes mellitus, type 2) E11.9 Atrial fibrillation I48.91 Hypercholesterolemia E78.00 Prostate cancer metastatic to bone C61; C79.51 Chronic steroid use Acute deep vein thrombosis (DVT) of distal vein of left lower extremity I82.4Z2 Candidiasis of mouth and esophagus B37.81; B37.0 DVT prophylaxis Z29.9 (3) Spinal stenosis Spinal region: unspecified Qualified Code(s): M48.00 - Spinal stenosis, site unspecified
[2022-10-25] MEDS: HEPARIN SOD 5,000 UNIT/0.5 ML VIAL SQ SCH (20:32)
[2022-10-26] MEDS: HEPARIN SOD 5,000 UNIT/0.5 ML VIAL SQ SCH ×3 (05:30→20:00)
[2022-10-26] MEDS: IPRATROPIUM BROMIDE HFA INHALER INH SCH ×2 (07:23→18:59)
[2022-10-26] MEDS: ALBUTEROL HFA 8 GM INHALER INH SCH ×2 (07:23→18:58)
[2022-10-26] MEDS: INSULIN ASPART PER UNIT CHARGE SC SCH ×4 (08:00→20:09)
[2022-10-26] MEDS: dexAMETHasone 4 MG in SYRINGE 0 ML IV SCH ×2 (08:05→19:59)
[2022-10-26] MEDS: ABIRATERONE ACETATE 500 MG PO SCH ×2 (08:06→11:43)
[2022-10-26] MEDS: guaiFENesin 600 MG TABCR PO SCH ×2 (08:07→19:59)
[2022-10-26] MEDS: TRIAMCINOLONE ACET 0.1% CR 15 GM TUBE TOP SCH ×3 (08:07→20:21)
[2022-10-26] MEDS: NYSTATIN SUSP 500,000 U/5 ML UDC PO SCH ×4 (08:07→19:59)
[2022-10-26] MEDS: PANTOprazole 40 MG TAB PO SCH ×2 (08:07→19:59)
[2022-10-26] MEDS: ATORVASTATIN 20 MG TAB PO SCH (08:08)
[2022-10-26] MEDS: LORATADINE 10 MG TAB PO SCH (08:08)
[2022-10-26] MEDS: CEROVITE ADV FORMULA TAB PO SCH (08:08)
[2022-10-26] MEDS: SERTRALINE HCL 100 MG TABLET PO SCH (08:08)
[2022-10-26] MEDS: CALCIUM 600MG + VIT D 400 IU TAB PO SCH (08:08)
[2022-10-26] MEDS: METOPROLOL SUCC 50MG EXT REL TAB PO SCH (08:08)
[2022-10-26 08:09] LABS: Hematocrit (blood only) 46.4 % (42.0-52.0); Hemoglobin 15.8 g/dl (14.0-18.0); Mean Corpuscular Hemoglobin 31.4 pg (25.0-34.0); Mean Corpuscular Hgb Conc 34.1 g/dL (32.0-36.0); Mean Corpuscular Volume 92.2 fL (80.0-100.0); Mean Platelet Volume 10.6 fL (9.4-12.4); Platelet Count 120 K/uL (130-400); RDW Coefficient of Variation 13.2 % (11.5-14.5); RDW Standard Deviation 45.1 fL (36.4-46.3); Red Blood Count 5.03 M/uL (4.70-6.10); White Blood Count 14.84 K/ul (4.8-10.8)
[2022-10-26 08:18] LABS: BUN Creatinine Ratio 23.5 (10-20); Calcium 8.4 mg/dl (8.6-10.3); Creatinine Clr Calc Pharmacy 72.7 ml/min; Est GFR (African American) 85.8 ml/min; Est GFR (Non-African American) 74.1 ml/min
[2022-10-26] MEDS: LANTUS PER UNIT CHARGE SQ SCH ×2 (09:14→20:09)
[2022-10-26] MEDS: GABAPENTIN 100 MG CAP PO SCH (09:14)
[2022-10-26] MEDS: ACETAMINOPHEN 500 MG TAB PO SCH ×3 (09:14→19:59)
--- NOTE | 2022-10-26 11:29 | Hospitalist Progress Note ---
Date of Service October 26, 2022 Assessment & Plan (1) Visual hallucinations: Plan: started yesterday evening only has them when his eyes are shut are they actually vivid dreams rather than hallucinations since they only occur with eyes closed? he is a/o x 3 recent MRI brain was normal he is concerned it is gabapentin related I have not seen this type of side effect from gabapentin but very reasonable to place it on hold and follow this symptom (2) Weakness: Plan: multifactorial - recent or recurrent COVID-19 infection; deconditioning; toxic effects from narcotics/baclofen; known lumbar foraminal/spinal stenosis; adrenal crisis; other processes. some minor improvement with supportive care and stress dose steroids. MRI Brain neg for stroke. Oxycontine/oxycodone and baclofen stopped. PT, OT as tolerated. Rx of COVID-19 as below. (3) COVID-19: Plan: Patient initially tested + for COVID-19 in mid-September. He was hospitalized at that time and had acute hypoxic respiratory failure - treated with steroids, etc. He continues to test + on PCR testing. Interestingly he has had URI symptoms the last several days as well as cough/wheezing. His [employer] respiratory panel is negative for other viral pathogens. Additionally, I spoke with the pt's significant other, and he tested negative for COVID in September multiple times. However, he tested + for COVID THIS PAST WEEK. Thus, has patient been re-infected? 1 month from the last infection would be unusual but not impossible. Or, are we simply seeing ongoing COVID symptoms since his original index admission 09/24/22?? Continue airborne precautions. Cont dexamethasone 4mg BID. This will help his wheezing as well as his lumbar spine. Cont bronchodilators, flutter valve, mucinex, etc. Pt reports that his pulmonary symptoms were worse today. He does have borderline O2 sats at times (92% in RA, etc) and his exam is notable for fine b/l basilar rales. Has basilar infiltrates on cxr today. He could have developing COVID pneumonia. Will start Remdesivir x 5 days. Check procalcitonin in am. Defer on abx for now. (4) Spinal stenosis: Plan: Severe foraminal and central spinal stenosis on recent MRI l-spine. Seen by Dr Velazco's team during the prior hospitalization. Surgical intervention was offered but patient declined such. He is now willing to undergo surgery. I spoke with Dr Velazco from ortho-spine. Dr Velazco will see him Friday, 10/28, in consult and determine timing of any potential surgery. In meantime continue dexamethasone, tylenol, norco prn, dilaudid prn. Gentle PT/OT as tolerated. (5) Thrombocytopenia: Plan: Etiology? Patient has been thrombocytopenic since his COVID dx in mid-September. Platelets are now lower. Does he have a post-viral ITP? Other? peripheral smear unrevealing. immature platelet fraction returned normal making ITP unlikely. check a B12 and folate while here. platelets HAVE improved while here with steroids. if platelets start to drop again check HIT panel as he has had heparin products over the last few weeks. (6) HTN (hypertension): Plan: BPs are still controlled despite amlodipine and lisinopril on hold. Continue metoprolol. If he needs additional rate and/or BP control will use low-dose cardizem in jacki of amlodipine. (7) Anxiety: Plan: Cont sertraline. (8) Prostate cancer: Plan: Stage 4 with bony mets. On Zytiga and prednisone chronically. Follows with Dr Olivia Liriano - [facility]. MRI Brain neg for cva or metastatic disease. (9) Depression: Plan: Continue sertraline. (10) DMII (diabetes mellitus, type 2): Plan: a1c 7.7% 09/24/22. cont lantus cont novolog (11) Atrial fibrillation: Plan: Permanent, rates mildly fast in the setting of pain, bodily stress from infection, etc Cont metoprolol. He is NOT on chronic anticoagulation. If additional rate control is needed will use cardizem. (12) Hypercholesterolemia: Plan: Cont lipitor. LFTs wnl. (13) Prostate cancer metastatic to bone: Plan: As above. (14) Chronic steroid use: Plan: Prednisone 5mg daily for prostate cancer with bony mets. Will employ dexamethasone for stress dose steroids. (15) Acute deep vein thrombosis (DVT) of distal vein of left lower extremity: Plan: 10/12/22 - doppler of LLE showed "Nonocclusive thrombus in the left popliteal vein as well as one of 2 peroneal veins." Due to low platelets, h/o hematuria, and possible chronic nature of the DVT a decision was made not to anticoagulate. RLE doppler study negative for DVT this admission. If patient ultimately has back surgery does he need IVC filter given his DVT as well as increased DVT risk due to COVID, immobility, etc?? Will check with vascular surgery about such. (16) Candidiasis of mouth and esophagus: Plan: Cont Nystatin 5ml ac/hs swish/swallow. Improving. (17) DVT prophylaxis: Plan: platelets are mildly low but stable high risk of DVT - cont heparin TID daily platelet count Plan Updated pt's José by phone extensively yesterday pm and again today Admission and Anticipated Discharge Date Admission Date: October 24, 2022 Subjective pt reports sleeping very poorly overnight he states any time he closed his eyes he had "visual hallucinations" he describes very vivid images and scenes including ants, people in the room, etc when he opens his eyes the images and hallucinations go away has never had this before he is worried it is the gabapentin during my assessment he was a/o x 3 despite the above states sore throat is a little better cough/wheezing/chest congestion are worse today states his appetite is very poor back pain is the same leg pains - L>R - is the same tele - a.fib, rates low 100s Review of Systems Review of Systems: gen - no fevers or chills cv - no chest pain, no orthopnea pulm - no sputum GI - no nausea/emesis or pain Physical Exam Physical Exam: gen - looks same as yesterday, NAD, resting comfortably in bed eyes - conjunctival irritation left eye resolved mouth - MMM, tongue with less thrush neck - no JVD heart - irregularly irregular, s1 s2, no murmur; rates >100 lungs - mild wheezes remain b/l with b/l basilar rales; no increased work of breathing abd - soft NT ND BS+ ext - no edema, pulses 2+ b/l psych - a/o x 3 Results & Data Results & Data Vital Signs (Past 12 Hours) Vital Signs Temp Pulse Resp BP Pulse Ox O2 Del Method 10/26/22 10:00 Room Air 10/26/22 07:39 36.9 C 103 H 20 135/87 93 Room Air 10/26/22 07:25 101 H 18 93 Room Air 10/26/22 03:00 36.8 C 96 H 18 146/89 H 94 Room Air Laboratory Results Laboratory Results - last 24 hr 10/25/22 10/25/22 10/25/22 11:43 16:28 20:22 WBC RBC Hgb Hct MCV MCH MCHC RDW Std Deviation RDW Coeff of Tramaine Plt Count MPV Immature Plt Fraction Sodium Potassium Chloride Carbon Dioxide Anion Gap BUN Creatinine Est Cr Clr Drug Dosing Est GFR ( Amer) Est GFR (Non-Af Amer) BUN/Creatinine Ratio Glucose POC Glucose 252 H 246 H 241 H Calcium 10/26/22 10/26/22 10/26/22 07:30 07:30 07:42 WBC 14.84 H RBC 5.03 Hgb 15.8 Hct 46.4 MCV 92.2 MCH 31.4 MCHC 34.1 RDW Std Deviation 45.1 RDW Coeff of Tramaine 13.2 Plt Count 120 L MPV 10.6 Immature Plt Fraction 5.0 Sodium 135 L Potassium 5.0 D Chloride 101 Carbon Dioxide 28 Anion Gap 6 BUN 23 Creatinine 0.98 Est Cr Clr Drug Dosing 72.7 Est GFR ( Amer) 85.8 Est GFR (Non-Af Amer) 74.1 BUN/Creatinine Ratio 23.5 H Glucose 167 H POC Glucose 136 H Calcium 8.4 L Diagnostic Findings Chest X-Ray 10/26/22 11:27 XR chest 1V portable HISTORY: 76 years-old Male b/l basilar rales, COVID+; pneumonia?? Acute shortness of breath COMPARISON: 10/24/2022 TECHNIQUE: AP view of the chest FINDINGS: Cardiac silhouette is enlarged. Atherosclerosis of the aorta. Moderate right hemidiaphragmatic elevation. Subsegmental bibasilar densities again noted. No pneumothorax or pleural effusion. The bones appear normal. IMPRESSION: Unchanged right hemidiaphragmatic elevation with mild bibasilar opacities. ACT 112: Negative or not required by law. The above report was generated using voice recognition software. It may contain grammatical, syntax or spelling errors. Electronically signed by: Samuel Nolan M.D. 10/26/2022 12:21 PM PG Care Time/CCT Total # of Minutes Spent Total Time Spent with Patient: Total time spent is greater than 50% in coordination of care (as documented) at patient's floor/unit and/or counseling patient: Coding Level of Care Code 01055 SUB INP/OBS CARE MIN Diagnoses Visual hallucinations R44.1 Weakness R53.1 COVID-19 U07.1 Spinal stenosis M48.00 Spinal region: unspecified Thrombocytopenia D69.6 HTN (hypertension) I10 Anxiety F41.9 Prostate cancer C61 Depression F32.9 DMII (diabetes mellitus, type 2) E11.9 Atrial fibrillation I48.91 Hypercholesterolemia E78.00 Prostate cancer metastatic to bone C61; C79.51 Chronic steroid use Acute deep vein thrombosis (DVT) of distal vein of left lower extremity I82.4Z2 Candidiasis of mouth and esophagus B37.81; B37.0 DVT prophylaxis Z29.9 (4) Spinal stenosis Spinal region: unspecified Qualified Code(s): M48.00 - Spinal stenosis, site unspecified
[2022-10-26] MEDS: HYDROCODONE/ACETAMINOPHEN 7.5/325MG TAB PO PRN ×2 (11:43→17:42)
[2022-10-26 11:52] LABS: C Reactive Protein 3.22 mg/dl (0-0.5)
--- NOTE | 2022-10-26 12:23 | XRay Report ---
XR chest 1V portable HISTORY: 76 years-old Male b/l basilar rales, COVID+; pneumonia?? Acute shortness of breath COMPARISON: 10/24/2022 TECHNIQUE: AP view of the chest FINDINGS: Cardiac silhouette is enlarged. Atherosclerosis of the aorta. Moderate right hemidiaphragmatic elevat ion. Subsegmental bibasilar densities again noted. No pneumothorax or pleural effusion. The bones reji ear normal. IMPRESSION: Unchanged right hemidiaphragmatic elevation with mild bibasilar opacities. ACT 112: Negative or not required by law. The above report was generated using voice recognition software. It may contain grammatical, syntax o r spelling errors. Electronically signed by: Samuel Nolan M.D. 10/26/2022 12:21 PM
[2022-10-26 12:55] LABS: Appearance Urine Clear (Clear); Bacteria Urine Automated Negative (Negative); Bilirubin Urine Negative (Negative); Blood Urine Negative (Negative); Color Urine Yellow; Epithelial Cell Urine Auto >30 /lpf (0-5); Glucose Urine UA Negative (Negative); Ketones Urine Negative (Negative); Leukocyte Esterase Urine 2+ (Negative); Nitrite Urine Negative (Negative); Protein Urine Trace (Negative); RBC Urine Automated 0-4 /hpf (0-4); Urobilinogen Urine Negative (Negative)
[2022-10-26 15:11] LABS: Albumin Level 3.3 gm/dl (3.4-5.0); Bilirubin Direct 0.2 mg/dl (0-0.2); Total Protein 6.1 gm/dl (6.0-8.3)
[2022-10-26] MEDS ORDERED: REMDESIVIR 200 MG in SODIUM CHLORIDE 0.9% 210 ML IV STA (15:23)
[2022-10-26] MEDS: MELATONIN 3 MG TAB PO SCH (19:59)
[2022-10-26] MEDS ORDERED: IPRATROPIUM BROMIDE HFA INHALER INH PRN (20:15)
[2022-10-26] MEDS ORDERED: ALBUTEROL HFA 8 GM INHALER INH PRN (20:15)
[2022-10-27] MEDS: HYDROCODONE/ACETAMINOPHEN 7.5/325MG TAB PO PRN ×2 (00:22→08:34)
[2022-10-27] MEDS: HEPARIN SOD 5,000 UNIT/0.5 ML VIAL SQ SCH ×3 (04:04→20:13)
[2022-10-27 07:25] LABS: Hematocrit (blood only) 44.7 % (42.0-52.0); Hemoglobin 14.9 g/dl (14.0-18.0); Mean Corpuscular Hgb Conc 33.3 g/dL (32.0-36.0); Mean Corpuscular Volume 92.9 fL (80.0-100.0); Mean Platelet Volume 10.7 fL (9.4-12.4); Platelet Count 113 K/uL (130-400); RDW Coefficient of Variation 13.2 % (11.5-14.5); RDW Standard Deviation 45.1 fL (36.4-46.3); Red Blood Count 4.81 M/uL (4.70-6.10); White Blood Count 10.43 K/ul (4.8-10.8)
[2022-10-27 07:41] LABS: BUN Creatinine Ratio 22.7 (10-20); Calcium 8.3 mg/dl (8.6-10.3); Creatinine Clr Calc Pharmacy 80.7 ml/min; Est GFR (Non-African American) 82.9 ml/min; Potassium 4.6 mmol/L (3.5-5.1)
[2022-10-27] MEDS: PANTOprazole 40 MG TAB PO SCH ×2 (08:33→20:11)
[2022-10-27] MEDS: SERTRALINE HCL 100 MG TABLET PO SCH (08:33)
[2022-10-27] MEDS: CEROVITE ADV FORMULA TAB PO SCH (08:33)
[2022-10-27] MEDS: guaiFENesin 600 MG TABCR PO SCH ×2 (08:33→20:12)
[2022-10-27] MEDS: METOPROLOL SUCC 50MG EXT REL TAB PO SCH (08:33)
[2022-10-27] MEDS: CALCIUM 600MG + VIT D 400 IU TAB PO SCH (08:33)
[2022-10-27] MEDS: NYSTATIN SUSP 500,000 U/5 ML UDC PO SCH ×4 (08:33→20:12)
[2022-10-27] MEDS: ATORVASTATIN 20 MG TAB PO SCH (08:33)
[2022-10-27] MEDS: LORATADINE 10 MG TAB PO SCH (08:33)
[2022-10-27] MEDS: ACETAMINOPHEN 500 MG TAB PO SCH ×3 (08:35→20:11)
[2022-10-27] MEDS: dexAMETHasone 4 MG in SYRINGE 0 ML IV SCH ×2 (08:35→20:12)
[2022-10-27] MEDS: TRIAMCINOLONE ACET 0.1% CR 15 GM TUBE TOP SCH ×2 (08:37→20:13)
[2022-10-27] MEDS: INSULIN ASPART PER UNIT CHARGE SC SCH ×4 (09:01→20:09)
[2022-10-27] MEDS: ABIRATERONE ACETATE 500 MG PO SCH (09:02)
[2022-10-27] MEDS: LANTUS PER UNIT CHARGE SQ SCH ×2 (09:02→20:10)
[2022-10-27] MEDS: REMDESIVIR 100 MG in SODIUM CHLORIDE 0.9% 230 ML IV SCH (14:01)
[2022-10-27] MEDS: MELATONIN 3 MG TAB PO SCH (20:12)
--- NOTE | 2022-10-27 20:22 | Hospitalist Progress Note ---
Date of Service October 27, 2022 Assessment & Plan (1) Visual hallucinations: Plan: delirium from his COVID infection? toxic from gabapentin? gabapentin was stopped symptoms resolved he is a/o x 3 recent MRI brain was normal (2) Weakness: Plan: multifactorial - recent or recurrent COVID-19 infection; deconditioning; toxic effects from narcotics/baclofen; known lumbar foraminal/spinal stenosis; adrenal crisis; other processes. some minor improvement with supportive care and stress dose steroids. MRI Brain neg for stroke. Oxycontine/oxycodone and baclofen stopped. cont PT, OT as tolerated. Rx of COVID-19 as below. (3) COVID-19: Plan: Patient initially tested + for COVID-19 in mid-September. He was hospitalized at that time and had acute hypoxic respiratory failure - treated with steroids, etc. He continues to test + on PCR testing. Interestingly he has had URI symptoms the last several days as well as cough/w heezing. His [employer] respiratory panel is negative for other viral pathogens. Additionally, pt's significant other tested negative for COVID in September multiple times. However, he tested + for COVID THIS PAST WEEK. Thus, has patient been re-infected? 1 month from the last infection would be unusual but not impossible. Or, are we simply seeing ongoing COVID symptoms since his original index adm ission 09/24/22?? Continue airborne precautions. Cont dexamethasone 4mg BID. No wean today. This will help his COVID as well as his lumbar spine. Cont bronchodilators, flutter valve, mucinex, etc. Day #2 of 5 of Remdesivir (no concrete pneumonia on cxr, but O2 sats low 90s). Procalcitonin negative. Defer on abx. (4) Spinal stenosis: Plan: Severe foraminal and central spinal stenosis on recent MRI l-spine. Seen by Dr Velazco's team during the prior hospitalization. Surgical intervention was offered but patient declined such. He is now willing to undergo surgery. I spoke with Dr Velazco from ortho-spine. Dr Velazco will see him Friday, 10/28, in consult and determine timing of any potential surgery. In meantime continue dexamethasone, tylenol, norco prn, dilaudid prn. Gentle PT/OT as tolerated. (5) Thrombocytopenia: Plan: Etiology? Patient has been thrombocytopenic since his COVID dx in mid-September. Platelets are now lower. Does he have a post-viral ITP? Other? peripheral smear unrevealing. immature platelet fraction returned normal making ITP unlikely. check B12 and folate in am. platelets HAVE improved while here with steroids. if platelets start to drop again check HIT panel as he has had heparin products over the last few weeks. (6) HTN (hypertension): Plan: resume amlodipine. hold lisinopril. Continue metoprolol. (7) Anxiety: Plan: Cont sertraline. (8) Prostate cancer: Plan: Stage 4 with bony mets. On Zytiga and prednisone chronically. Follows with Dr Olivia Liriano - [facility]. MRI Brain neg for cva or metastatic disease. (9) Depression: Plan: Continue sertraline. (10) DMII (diabetes mellitus, type 2): Plan: a1c 7.7% 09/24/22. cont lantus cont novolog (11) Atrial fibrillation: Plan: Permanent, rates mildly fast at times in the setting of pain, bodily stress from infection, etc Cont metoprolol. He is NOT on chronic anticoagulation at baseline If additional rate control is needed will use cardizem (and stop amlodipine). (12) Hypercholesterolemia: Plan: Cont lipitor. LFTs wnl. (13) Prostate cancer metastatic to bone: Plan: As above. (14) Chronic steroid use: Plan: Prednisone 5mg daily for prostate cancer with bony mets. Will employ dexamethasone for stress dose steroids. (15) Acute deep vein thrombosis (DVT) of distal vein of left lower extremity: Plan: 10/12/22 - doppler of LLE showed "Nonocclusive thrombus in the left popliteal vein as well as one of 2 peroneal veins." Due to low platelets, h/o hematuria, and possible chronic nature of the DVT a decision was made not to anticoagulate. RLE doppler study negative for DVT this admission. If patient ultimately has back surgery does he need IVC filter given his DVT as well as increased DVT risk due to COVID, immobility, etc?? Will consult vascular surgery on Friday. (16) Candidiasis of mouth and esophagus: Plan: Cont Nystatin 5ml ac/hs swish/swallow. Improving. (17) DVT prophylaxis: Plan: platelets are mildly low but stable high risk of DVT - cont heparin TID daily platelet count Plan Updated pt's José at bedside today Admission and Anticipated Discharge Date Admission Date: October 24, 2022 Subjective tele overnight - a.fib, rates mostly <100 BPM laying in bed comfortably during the visit his spouse arrived at bedside; questions answered pt states he slept better last pm no further visual hallucinations eating well today still coughing but this, too, is better today denies dyspnea at rest as long as he is still his back pain is status quo main complaint is b/l leg pain, worse on left Review of Systems Review of Systems: gen - no fevers/chills cv - no chest pain, no orthopnea pulm - no dyspnea GI - no nausea/emesis Physical Exam Physical Exam: gen - looks better today; NAD; pleasant; obese eyes - conjunctival irritation left eye resolved mouth - MMM neck - no JVD heart - irregularly irregular, s1 s2, no murmur; rates <100 lungs - mild fine b/l basilar rales; no increased work of breathing; no wheezing abd - soft NT ND BS+ ext - no edema, pulses 2+ b/l psych - a/o x 3 Results & Data Results & Data Vital Signs (Past 12 Hours) Vital Signs Temp Pulse Pulse Resp BP Pulse Ox O2 Del Method 10/27/22 19:16 36.7 C 90 18 134/88 90 Room Air 10/27/22 16:40 36.5 C 63 19 139/57 L 97 Room Air 10/27/22 15:01 92 H 10/27/22 11:34 36.6 C 78 18 133/89 Room Air Laboratory Results Laboratory Results - last 24 hr 10/27/22 10/27/22 10/27/22 06:51 06:51 06:51 WBC 10.43 RBC 4.81 Hgb 14.9 Hct 44.7 MCV 92.9 MCH 31.0 MCHC 33.3 RDW Std Deviation 45.1 RDW Coeff of Tramaine 13.2 Plt Count 113 L MPV 10.7 Sodium 137 Potassium 4.6 Chloride 103 Carbon Dioxide 30 Anion Gap 4 BUN 20 Creatinine 0.88 Est Cr Clr Drug Dosing 80.7 Est GFR ( Amer) 96.0 Est GFR (Non-Af Amer) 82.9 BUN/Creatinine Ratio 22.7 H Glucose 125 H POC Glucose Calcium 8.3 L Procalcitonin < 0.05 10/27/22 10/27/22 10/27/22 07:41 11:36 16:32 WBC RBC Hgb Hct MCV MCH MCHC RDW Std Deviation RDW Coeff of Tramaine Plt Count MPV Sodium Potassium Chloride Carbon Dioxide Anion Gap BUN Creatinine Est Cr Clr Drug Dosing Est GFR ( Amer) Est GFR (Non-Af Amer) BUN/Creatinine Ratio Glucose POC Glucose 117 H 188 H 210 H Calcium Procalcitonin 10/27/22 19:44 WBC RBC Hgb Hct MCV MCH MCHC RDW Std Deviation RDW Coeff of Tramaine Plt Count MPV Sodium Potassium Chloride Carbon Dioxide Anion Gap BUN Creatinine Est Cr Clr Drug Dosing Est GFR ( Amer) Est GFR (Non-Af Amer) BUN/Creatinine Ratio Glucose POC Glucose 191 H Calcium Procalcitonin PG Care Time/CCT Total # of Minutes Spent Total Time Spent with Patient: Total time spent is greater than 50% in coordination of care (as documented) at patient's floor/unit and/or counseling patient: Coding Level of Care Code 10007 SUB INP/OBS CARE 2/35MIN Diagnoses Visual hallucinations R44.1 Weakness R53.1 COVID-19 U07.1 Spinal stenosis M48.00 Spinal region: unspecified Thrombocytopenia D69.6 HTN (hypertension) I10 Anxiety F41.9 Prostate cancer C61 Depression F32.9 DMII (diabetes mellitus, type 2) E11.9 Atrial fibrillation I48.91 Hypercholesterolemia E78.00 Prostate cancer metastatic to bone C61; C79.51 Chronic steroid use Acute deep vein thrombosis (DVT) of distal vein of left lower extremity I82.4Z2 Candidiasis of mouth and esophagus B37.81; B37.0 DVT prophylaxis Z29.9 (4) Spinal stenosis Spinal region: unspecified Qualified Code(s): M48.00 - Spinal stenosis, site unspecified
[2022-10-28] MEDS: HYDROCODONE/ACETAMINOPHEN 7.5/325MG TAB PO PRN ×2 (05:19→16:53)
[2022-10-28] MEDS: HEPARIN SOD 5,000 UNIT/0.5 ML VIAL SQ SCH ×3 (05:19→21:55)
[2022-10-28 07:58] LABS: Hematocrit (blood only) 46.4 % (42.0-52.0); Hemoglobin 15.7 g/dl (14.0-18.0); Mean Corpuscular Hemoglobin 31.2 pg (25.0-34.0); Mean Corpuscular Hgb Conc 33.8 g/dL (32.0-36.0); Mean Corpuscular Volume 92.2 fL (80.0-100.0); Mean Platelet Volume 10.2 fL (9.4-12.4); Platelet Count 133 K/uL (130-400); RDW Coefficient of Variation 13.2 % (11.5-14.5); RDW Standard Deviation 44.7 fL (36.4-46.3); Red Blood Count 5.03 M/uL (4.70-6.10); White Blood Count 8.32 K/ul (4.8-10.8)
[2022-10-28] MEDS: PANTOprazole 40 MG TAB PO SCH ×2 (08:04→20:38)
[2022-10-28] MEDS: guaiFENesin 600 MG TABCR PO SCH ×2 (08:04→20:40)
[2022-10-28] MEDS: ACETAMINOPHEN 500 MG TAB PO SCH ×3 (08:04→20:37)
[2022-10-28] MEDS: CALCIUM 600MG + VIT D 400 IU TAB PO SCH (08:04)
[2022-10-28] MEDS: SERTRALINE HCL 100 MG TABLET PO SCH (08:04)
[2022-10-28] MEDS: CEROVITE ADV FORMULA TAB PO SCH (08:05)
[2022-10-28] MEDS: METOPROLOL SUCC 50MG EXT REL TAB PO SCH (08:05)
[2022-10-28] MEDS: LORATADINE 10 MG TAB PO SCH (08:05)
[2022-10-28] MEDS: dexAMETHasone 4 MG in SYRINGE 0 ML IV SCH ×2 (08:05→20:38)
[2022-10-28] MEDS: ATORVASTATIN 20 MG TAB PO SCH (08:05)
[2022-10-28] MEDS: NYSTATIN SUSP 500,000 U/5 ML UDC PO SCH ×4 (08:06→20:37)
[2022-10-28] MEDS: TRIAMCINOLONE ACET 0.1% CR 15 GM TUBE TOP SCH ×2 (08:06→20:39)
[2022-10-28 08:15] LABS: BUN Creatinine Ratio 25.3 (10-20); Calcium 8.3 mg/dl (8.6-10.3); Creatinine Clr Calc Pharmacy 84.2 ml/min; Est GFR (African American) 97.7 ml/min; Est GFR (Non-African American) 84.3 ml/min; Potassium 4.5 mmol/L (3.5-5.1)
[2022-10-28] MEDS: INSULIN ASPART PER UNIT CHARGE SC SCH ×4 (08:35→20:35)
[2022-10-28] MEDS: LANTUS PER UNIT CHARGE SQ SCH ×2 (08:36→20:35)
[2022-10-28] MEDS: ABIRATERONE ACETATE 500 MG PO SCH (08:36)
[2022-10-28 08:44] LABS: Folate (Folic Acid),Ser orPlas 19.91 ng/ml (>5.38)
[2022-10-28] MEDS ORDERED: amLODIPine BESYLATE 5 MG TAB PO SCH (09:00)
[2022-10-28] MEDS: CYANOCOBALAMIN (B-12) 500 MCG TABLET PO SCH (12:20)
[2022-10-28 13:22] LABS: Babesia microti DNA Not Detected (Not Detected)
[2022-10-28] MEDS: REMDESIVIR 100 MG in SODIUM CHLORIDE 0.9% 230 ML IV SCH (14:13)
[2022-10-28] MEDS: MELATONIN 3 MG TAB PO SCH (20:39)
[2022-10-28] MEDS: MICONAZOLE NITRATE POWDER 85 GM EXT SCH (20:41)
--- NOTE | 2022-10-28 20:52 | Hospitalist Progress Note ---
Date of Service October 28, 2022 Assessment & Plan (1) COVID-19: Plan: Patient initially tested + for COVID-19 in mid-September. He was hospitalized at that time and had acute hypoxic respiratory failure - treated with steroids, etc. He continues to test + on PCR testing. Interestingly he had several days of URI symptoms as well as cough/wheezing in the days leading up to this admission. His [employer] respiratory panel was negative for other viral pathogens. Additionally, pt's significant other tested negative for COVID in September multiple times. However, he tested + for COVID THIS PAST WEEK. Either patient has been re-infected or he has had ongoing COVID symptoms since his original index admission 09/24/22. Continue airborne precautions. Cont dexamethasone 4mg BID. This will help his COVID respiratory symptoms as well as his lumbar spine. Cont bronchodilators, flutter valve, mucinex, etc. Day #3 of 5 of Remdesivir -- no concrete pneumonia on cxr but O2 sats low 90s much of the last few days and has had b/l fine dry rales in the bases on examination. Check ast/alt in am. Procalcitonin negative. Defer on abx. (2) Spinal stenosis: Plan: Severe foraminal and central spinal stenosis on recent MRI l-spine. Seen by Dr Velazco's team during the prior hospitalization. Surgical intervention was offered but patient declined such. He is now willing to undergo surgery. I have corresponded several times with Dr Velazoc. He may be able to operate next Friday11/04/22. In meantime continue dexamethasone, tylenol, norco prn, dilaudid prn. Gentle PT/OT as tolerated. OOB to chair at least once daily, preferably twice daily. In preparation for possible lumbar back surgery will obtain echo (has not had such for many years). Work on BP control. Vascular surgery consulted to determine if IVC filter should be placed. (3) Visual hallucinations: Plan: delirium from his COVID infection? toxic from gabapentin? gabapentin was stopped symptoms resolved recent MRI brain was normal (4) Weakness: Plan: multifactorial - recent or recurrent COVID-19 infection; deconditioning; toxic effects from narcotics/baclofen; known lumbar foraminal/spinal stenosis; adrenal crisis; other processes. MRI Brain neg for stroke. Oxycontine/oxycodone and baclofen stopped. cont PT, OT as tolerated. OOB to chair at least daily. Rx COVID-19. (5) Thrombocytopenia: Plan: Patient has been thrombocytopenic since his COVID dx in mid-September. peripheral smear unrevealing. immature platelet fraction returned normal making ITP unlikely. B12 and folate checked today - B12 low-normal; will replace. folate wnl. platelets HAVE improved while here with steroids. platelets were 80s, now up to 130s. cbc am. (6) HTN (hypertension): Plan: resumed amlodipine and still high - increase such to 5mg BID. resume lisinopril. Continue metoprolol. (7) Anxiety: Plan: Cont sertraline. (8) Prostate cancer: Plan: Stage 4 with bony mets. On Zytiga and prednisone chronically. Follows with Dr Olivia Liriano - [facility]. MRI Brain neg for cva or metastatic disease. (9) Depression: Plan: Continue sertraline. (10) DMII (diabetes mellitus, type 2): Plan: a1c 7.7% 09/24/22. cont lantus cont novolog controlled (11) Atrial fibrillation: Plan: Permanent a.fib Rates mildly fast at times in the setting of pain, bodily stress from infection, etc but overnight rates were improved Cont metoprolol. He is NOT on chronic anticoagulation at baseline (records suggest due to gross hematuria??) If additional rate control is needed would use cardizem (and stop amlodipine). (12) Hypercholesterolemia: Plan: Cont lipitor. LFTs wnl. Check ast and alt in am due to Remdesivir usage (13) Prostate cancer metastatic to bone: Plan: As above. (14) Chronic steroid use: Plan: Prednisone 5mg daily for prostate cancer with bony mets. Employing dexamethasone for stress dose steroids at this time. (15) Acute deep vein thrombosis (DVT) of distal vein of left lower extremity: Plan: 10/12/22 - doppler of LLE showed "Nonocclusive thrombus in the left popliteal vein as well as one of 2 peroneal veins." Due to low platelets, h/o hematuria, and possible chronic nature of the DVT a decision was made not to anticoagulate at that time. RLE doppler study negative for DVT this admission. Consult vascular surgery due to ?need for IVC filter? Multiple VTE risk factors - COVID infection, significant immobility, upcoming surgery, etc (16) Candidiasis of mouth and esophagus: Plan: Cont Nystatin 5ml ac/hs swish/swallow. Improved. (17) DVT prophylaxis: Plan: cont heparin TID daily platelet count due to recent thrombocytopenia (18) Balanitis: Plan: start miconazole powder TID urethral meatus area c/w sarita (19) Diarrhea: Plan: could be from COVID infection could be c diff given multiple hospitalizations check cdiff to start Plan Updated pt's José by phone today care d/w Dr Velazco from ortho-spine corresponded with Dr Ortiz from vascular surgery Admission and Anticipated Discharge Date Admission Date: October 24, 2022 Subjective patient resting in bed comfortably during the visit he reports several episodes of diarrhea - usually after eating present for several days denies any abd pain, nausea or emesis wheezing is resolved still with cough but much improved denies dyspnea at rest denies orthopnea nursing staff report he was having issues with his wal[place] was leaking urine around the catheter there was a small amount of hematuria the catheter was removed, and a new one was placed (18F rather than 16F) no issues since then tele - a.fib, most times rates <100BPM has not been out of bed in several days Review of Systems Review of Systems: gen - no fevers or chills cv - no chest pain pulm - no sputum musculo - back pain only when he moves; continues with b/l leg pains Physical Exam Physical Exam: gen - NAD, looks good today mouth - MMM, no obvious thrush neck - no JVD heart - irregularly irregular, s1 s2, no murmur; rates <100 lungs - mild fine b/l basilar rales unchanged; no increased work of breathing; no wheezing abd - soft NT ND BS+ ext - no edema, pulses 2+ b/l psych - a/o x 3 - buried penis; walton in place; white discharge noted at urethral meatus Results & Data Results & Data Vital Signs (Past 12 Hours) Vital Signs Temp Pulse Pulse Resp BP Pulse Ox O2 Del Method 10/28/22 19:13 36.6 C 94 H 18 161/96 H 93 Room Air 10/28/22 15:43 94 H 10/28/22 14:58 37.0 C 95 H 19 136/94 94 Room Air 10/28/22 11:47 36.4 C L 88 20 137/94 94 Room Air Laboratory Results Laboratory Results - last 24 hr 10/24/22 10/28/22 10/28/22 14:57 07:21 07:21 WBC 8.32 RBC 5.03 Hgb 15.7 Hct 46.4 MCV 92.2 MCH 31.2 MCHC 33.8 RDW Std Deviation 44.7 RDW Coeff of Tramaine 13.2 Plt Count 133 MPV 10.2 Sodium 138 Potassium 4.5 Chloride 104 Carbon Dioxide 29 Anion Gap 5 BUN 21 Creatinine 0.83 Est Cr Clr Drug Dosing 84.2 Est GFR ( Amer) 97.7 Est GFR (Non-Af Amer) 84.3 BUN/Creatinine Ratio 25.3 H Glucose 176 H POC Glucose Calcium 8.3 L Vitamin B12 Folate Babesia microti DNA PCR Not Detected 10/28/22 10/28/22 10/28/22 07:21 07:46 11:48 WBC RBC Hgb Hct MCV MCH MCHC RDW Std Deviation RDW Coeff of Tramaine Plt Count MPV Sodium Potassium Chloride Carbon Dioxide Anion Gap BUN Creatinine Est Cr Clr Drug Dosing Est GFR ( Amer) Est GFR (Non-Af Amer) BUN/Creatinine Ratio Glucose POC Glucose 146 H 224 H Calcium Vitamin B12 287 Folate 19.91 Babesia microti DNA PCR 10/28/22 10/28/22 16:42 20:14 WBC RBC Hgb Hct MCV MCH MCHC RDW Std Deviation RDW Coeff of Tramaine Plt Count MPV Sodium Potassium Chloride Carbon Dioxide Anion Gap BUN Creatinine Est Cr Clr Drug Dosing Est GFR ( Amer) Est GFR (Non-Af Amer) BUN/Creatinine Ratio Glucose POC Glucose 140 H 113 H Calcium Vitamin B12 Folate Babesia microti DNA PCR PG Care Time/CCT Total # of Minutes Spent Total Time Spent with Patient: Total time spent is greater than 50% in coordination of care (as documented) at patient's floor/unit and/or counseling patient: Coding Level of Care Code 55086 SUB INP/OBS CARE 3/50MIN Diagnoses COVID-19 U07.1 Spinal stenosis M48.00 Spinal region: unspecified Visual hallucinations R44.1 Weakness R53.1 Thrombocytopenia D69.6 HTN (hypertension) I10 Anxiety F41.9 Prostate cancer C61 Depression F32.9 DMII (diabetes mellitus, type 2) E11.9 Atrial fibrillation I48.91 Hypercholesterolemia E78.00 Prostate cancer metastatic to bone C61; C79.51 Chronic steroid use Acute deep vein thrombosis (DVT) of distal vein of left lower extremity I82.4Z2 Candidiasis of mouth and esophagus B37.81; B37.0 DVT prophylaxis Z29.9 Balanitis N48.1 Diarrhea R19.7 (2) Spinal stenosis Spinal region: unspecified Qualified Code(s): M48.00 - Spinal stenosis, site unspecified
[2022-10-28] MEDS: amLODIPine BESYLATE 5 MG TAB PO SCH (21:44)
[2022-10-29] MEDS: HYDROCODONE/ACETAMINOPHEN 7.5/325MG TAB PO PRN ×2 (00:13→13:06)
[2022-10-29] MEDS: HEPARIN SOD 5,000 UNIT/0.5 ML VIAL SQ SCH ×3 (05:37→21:17)
[2022-10-29 08:13] LABS: Hematocrit (blood only) 47.5 % (42.0-52.0); Hemoglobin 16.4 g/dl (14.0-18.0); Mean Corpuscular Hemoglobin 31.2 pg (25.0-34.0); Mean Corpuscular Hgb Conc 34.5 g/dL (32.0-36.0); Mean Corpuscular Volume 90.3 fL (80.0-100.0); Mean Platelet Volume 10.3 fL (9.4-12.4); Platelet Count 156 K/uL (130-400); RDW Coefficient of Variation 13.2 % (11.5-14.5); RDW Standard Deviation 43.6 fL (36.4-46.3); Red Blood Count 5.26 M/uL (4.70-6.10); White Blood Count 8.82 K/ul (4.8-10.8)
[2022-10-29] MEDS: CEROVITE ADV FORMULA TAB PO SCH (08:28)
[2022-10-29] MEDS: guaiFENesin 600 MG TABCR PO SCH ×2 (08:28→21:18)
[2022-10-29] MEDS: SERTRALINE HCL 100 MG TABLET PO SCH (08:28)
[2022-10-29] MEDS: METOPROLOL SUCC 50MG EXT REL TAB PO SCH (08:28)
[2022-10-29] MEDS: ATORVASTATIN 20 MG TAB PO SCH (08:28)
[2022-10-29] MEDS: CYANOCOBALAMIN (B-12) 500 MCG TABLET PO SCH (08:28)
[2022-10-29] MEDS: PANTOprazole 40 MG TAB PO SCH ×2 (08:28→21:16)
[2022-10-29] MEDS: CALCIUM 600MG + VIT D 400 IU TAB PO SCH (08:28)
[2022-10-29] MEDS: LORATADINE 10 MG TAB PO SCH (08:28)
[2022-10-29] MEDS: amLODIPine BESYLATE 5 MG TAB PO SCH ×2 (08:29→21:18)
[2022-10-29] MEDS: TRIAMCINOLONE ACET 0.1% CR 15 GM TUBE TOP SCH ×2 (08:30→21:20)
[2022-10-29] MEDS: NYSTATIN SUSP 500,000 U/5 ML UDC PO SCH ×4 (08:31→21:19)
[2022-10-29] MEDS: MICONAZOLE NITRATE POWDER 85 GM EXT SCH ×3 (08:35→21:19)
[2022-10-29] MEDS: dexAMETHasone 4 MG in SYRINGE 0 ML IV SCH ×2 (08:36→21:24)
[2022-10-29] MEDS: INSULIN ASPART PER UNIT CHARGE SC SCH ×4 (08:39→20:44)
[2022-10-29] MEDS: ABIRATERONE ACETATE 500 MG PO SCH (08:40)
[2022-10-29] MEDS: LANTUS PER UNIT CHARGE SQ SCH ×2 (08:40→21:20)
[2022-10-29] MEDS ORDERED: lisinopril 10 MG TAB PO SCH (09:00)
[2022-10-29 09:02] LABS: Calcium 8.5 mg/dl (8.6-10.3); Magnesium 2.1 mg/dl (1.7-2.4); Potassium 4.7 mmol/L (3.5-5.1)
[2022-10-29 09:08] LABS: BUN Creatinine Ratio 25.7 (10-20); Creatinine Clr Calc Pharmacy 69.5 ml/min; Est GFR (African American) 82.2 ml/min; Est GFR (Non-African American) 70.9 ml/min
--- NOTE | 2022-10-29 09:46 | Communication Note ---
Date of Service: October 29, 2022 Patient for back surgery soon. Will repeat the lower extremity venous usn. If any fresh thrombus present, will need a pre op filter. If none then can proceed with his back surgery and anticoagulate as per spine surgery.
[2022-10-29] MEDS: ACETAMINOPHEN 500 MG TAB PO SCH ×3 (10:20→21:15)
--- NOTE | 2022-10-29 10:23 | Ultrasound Report ---
BILATERAL LOWER EXTREMITY VENOUS DOPPLER CLINICAL HISTORY: Lower extremity pain. Covid. COMPARISON STUDY: Right lower extremity venous Doppler ultrasound October 24, 2022. Left lower extr emity venous Doppler ultrasound October 12, 2022. TECHNIQUE: Sonography of the deep venous system of the bilateral lower extremities was performed. Co mpression and augmentation were evaluated. FINDINGS: There is no deep venous thrombus within the right lower extremity. There is nonocclusive d eep venous thrombus within the left popliteal vein. This is similar to ultrasound of October 12 3. However, comparison by sonography is difficult. The thrombus within the left peroneal vein on ultr asound of October 12, 2021 is not visualized on this exam. However, the left calf vessels are subopt imally assessed. IMPRESSION: 1. Nonocclusive deep venous thrombus within the left popliteal vein. This is similar to ultrasound of October 12, 2022. Left peroneal vein deep venous thrombus on prior ultrasound not visualized on brenda kaplan's study. 2. No deep venous thrombus within the right lower extremity. ACT 112: Negative or not required by law. Electronically signed by: Americo Woodard M.D. 10/29/2022 10:22 AM
--- NOTE | 2022-10-29 11:11 | XCELERA ---
[id number]
--- NOTE | 2022-10-29 13:53 | Hospitalist Progress Note ---
Date of Service October 29, 2022 Assessment & Plan (1) COVID-19: Plan: Patient initially tested + for COVID-19 in mid-September. He was hospitalized at that time and had acute hypoxic respiratory failure - treated with steroids, etc. He continues to test + on PCR testing. Interestingly he had several days of URI symptoms as well as cough/wheezing in the days leading up to this admission. His [employer] respiratory panel was negative for other viral pathogens. Additionally, pt's significant other tested negative for COVID in September multiple times. However, he tested + for COVID THIS PAST WEEK. Either patient has been re-infected or he has had ongoing COVID symptoms since his original index admission 09/24/22. Continue airborne precautions. Cont dexamethasone 4mg BID. This will help his COVID respiratory symptoms as well as his lumbar spine. Cont bronchodilators, flutter valve, mucinex, etc. Day #4 of 5 of Remdesivir -- no concrete pneumonia on cxr but O2 sats low 90s much of the last few days and has had b/l fine dry rales in the bases on examination. AST/ALT normal today Procalcitonin negative. Defer on abx. (2) Spinal stenosis: Plan: Severe foraminal and central spinal stenosis on recent MRI l-spine. Seen by Dr Velazco's team during the prior hospitalization. Surgical intervention was offered but patient declined such. He is now willing to undergo surgery. Dr. Velazco plans to operate next Friday11/04/22. In meantime continue dexamethasone, tylenol, norco prn, dilaudid prn. Gentle PT/OT as tolerated. OOB to chair at least once daily, preferably twice daily. In preparation for possible lumbar back surgery, echo was obtained which was fairly unremarkable continue to Work on BP control. Vascular surgery consulted to determine if IVC filter should be placed. Venous duplex ultrasound ordered that did not show any new DVT, nor did it show the old DVT. Vascular surgery does not recommend IVC filter placement. Anticoagulation per orthospine postsurgery (3) Visual hallucinations: Plan: delirium from his COVID infection? toxic from gabapentin? gabapentin was stopped symptoms resolved recent MRI brain was normal (4) Weakness: Plan: multifactorial - recent or recurrent COVID-19 infection; deconditioning; toxic effects from narcotics/baclofen; known lumbar foraminal/spinal stenosis; adrenal crisis; other processes. MRI Brain neg for stroke. Oxycontine/oxycodone and baclofen stopped. cont PT, OT as tolerated. OOB to chair at least daily. Rx COVID-19. (5) Thrombocytopenia: Plan: Patient has been thrombocytopenic since his COVID dx in mid-September. peripheral smear unrevealing. immature platelet fraction returned normal making ITP unlikely. B12 and folate checked today - B12 low-normal; will replace. folate wnl. platelets HAVE improved while here with steroids. platelets were 80s, now up to 150s (6) HTN (hypertension): Plan: resumed amlodipine and still high - increase such to 5mg BID. increase the dose of lisinopril to home dose at 20 mg p.o. daily Continue metoprolol. (7) Anxiety: Plan: Cont sertraline. (8) Prostate cancer: Plan: Stage 4 with bony mets. On Zytiga and prednisone chronically. Follows with Dr Olivia Liriano - [facility]. MRI Brain neg for cva or metastatic disease. (9) Depression: Plan: Continue sertraline. (10) DMII (diabetes mellitus, type 2): Plan: a1c 7.7% 09/24/22. cont lantus cont novolog controlled (11) Atrial fibrillation: Plan: Permanent a.fib Rates mildly fast at times in the setting of pain, bodily stress from infection, etc but overnight rates were improved Cont metoprolol. He is NOT on chronic anticoagulation at baseline (records suggest due to gross hematuria??) If additional rate control is needed would use cardizem (and stop amlodipine). (12) Hypercholesterolemia: Plan: Cont lipitor. LFTs wnl. AST and ALT WNL (13) Prostate cancer metastatic to bone: Plan: As above. (14) Chronic steroid use: Plan: Prednisone 5mg daily for prostate cancer with bony mets. Employing dexamethasone for stress dose steroids at this time. (15) Acute deep vein thrombosis (DVT) of distal vein of left lower extremity: Plan: 10/12/22 - doppler of LLE showed "Nonocclusive thrombus in the left popliteal vein as well as one of 2 peroneal veins." Due to low platelets, h/o hematuria, and possible chronic nature of the DVT a decision was made not to anticoagulate at that time. RLE doppler study negative for DVT this admission. vascular surgery repeated lower extremity duplex. No new or old DVT seen. No IVC filter placement planned even though multiple VTE risk factors - COVID infection, significant immobility, upcoming surgery, etc (16) Candidiasis of mouth and esophagus: Plan: Cont Nystatin 5ml ac/hs swish/swallow. Improved. (17) DVT prophylaxis: Plan: cont heparin TID daily platelet count due to recent thrombocytopenia (18) Balanitis: Plan: start miconazole powder TID urethral meatus area c/w sarita (19) Diarrhea: Plan: could be from COVID infection could be c diff given multiple hospitalizations check cdiff to start Plan plan for spine surgery on 11/04. Admission and Anticipated Discharge Date Admission Date: October 24, 2022 Subjective patient feels well. Denies chest pain, shortness of breath. No cough. Not hypoxic. Review of Systems Review of Systems: All systems reviewed & are unremarkable except as noted in Subjective Physical Exam Physical Exam: General: Awake, conversant Heart: S1, S2/regular rate and rhythm, no murmur rubs or gallops Lungs: Clear to auscultation bilaterally. Normal effort Abdomen: Soft/nontender/nondistended. No hepatosplenomegaly Extremities: No clubbing/cyanosis. mild bilateral leg swelling (patient says that his leg swelling is usually much worse than this) Behavior: Appropriate, cooperative Results & Data Results & Data Vital Signs (Past 12 Hours) Vital Signs Temp Pulse Resp BP Pulse Ox O2 Del Method 10/29/22 07:42 Room Air 10/29/22 07:07 36.4 C L 93 H 18 154/108 H 94 Room Air 10/29/22 02:00 36.3 C L 84 18 149/97 H 93 Room Air Laboratory Results Abnormal lab results 10/28/22 10/28/22 10/29/22 Range/Units 16:42 20:14 07:05 BUN (6-23) mg/dl BUN/Creatinine Ratio (10-20) Glucose (70-99(Fasting)) mg/dl POC Glucose 140 H 113 H 123 H (70-99) mg/dl Calcium (8.6-10.3) mg/dl 10/29/22 10/29/22 Range/Units 07:35 11:06 BUN 26 H (6-23) mg/dl BUN/Creatinine Ratio 25.7 H (10-20) Glucose 133 H (70-99(Fasting)) mg/dl POC Glucose 224 H (70-99) mg/dl Calcium 8.5 L (8.6-10.3) mg/dl PG Care Time/CCT Total # of Minutes Spent Total Time Spent with Patient: Total time spent is greater than 50% in coordination of care (as documented) at patient's floor/unit and/or counseling patient: Coding Level of Care Code 18017 SUB INP/OBS CARE 2/35MIN Diagnoses COVID-19 U07.1 Spinal stenosis M48.00 Spinal region: unspecified Visual hallucinations R44.1 Weakness R53.1 Thrombocytopenia D69.6 HTN (hypertension) I10 Anxiety F41.9 Prostate cancer C61 Depression F32.9 DMII (diabetes mellitus, type 2) E11.9 Atrial fibrillation I48.91 Hypercholesterolemia E78.00 Prostate cancer metastatic to bone C61; C79.51 Chronic steroid use Acute deep vein thrombosis (DVT) of distal vein of left lower extremity I82.4Z2 Candidiasis of mouth and esophagus B37.81; B37.0 DVT prophylaxis Z29.9 Balanitis N48.1 Diarrhea R19.7 (2) Spinal stenosis Spinal region: unspecified Qualified Code(s): M48.00 - Spinal stenosis, site unspecified
[2022-10-29] MEDS: lisinopril 20 MG TAB PO SCH (14:20)
[2022-10-29] MEDS: REMDESIVIR 100 MG in SODIUM CHLORIDE 0.9% 230 ML IV SCH (14:21)
[2022-10-29] MEDS: MELATONIN 3 MG TAB PO SCH (21:18)
[2022-10-30] MEDS: HYDROCODONE/ACETAMINOPHEN 7.5/325MG TAB PO PRN ×3 (04:17→21:11)
[2022-10-30] MEDS: HEPARIN SOD 5,000 UNIT/0.5 ML VIAL SQ SCH ×3 (05:34→21:13)
[2022-10-30 09:21] LABS: BUN Creatinine Ratio 27.1 (10-20); Creatinine Clr Calc Pharmacy 58.9 ml/min; Est GFR (African American) 68.1 ml/min; Est GFR (Non-African American) 58.8 ml/min; Potassium 3.5 mmol/L (3.5-5.1)
[2022-10-30] MEDS: INSULIN ASPART PER UNIT CHARGE SC SCH ×4 (09:28→20:31)
[2022-10-30] MEDS: LANTUS PER UNIT CHARGE SQ SCH ×2 (09:45→21:17)
[2022-10-30] MEDS: ACETAMINOPHEN 500 MG TAB PO SCH ×3 (09:49→21:18)
[2022-10-30] MEDS: ABIRATERONE ACETATE 500 MG PO SCH (09:53)
[2022-10-30] MEDS: ATORVASTATIN 20 MG TAB PO SCH (09:54)
[2022-10-30] MEDS: amLODIPine BESYLATE 5 MG TAB PO SCH ×2 (09:54→21:15)
[2022-10-30] MEDS: CYANOCOBALAMIN (B-12) 500 MCG TABLET PO SCH (09:55)
[2022-10-30] MEDS: dexAMETHasone 4 MG in SYRINGE 0 ML IV SCH ×2 (09:55→21:11)
[2022-10-30] MEDS: guaiFENesin 600 MG TABCR PO SCH ×2 (09:55→21:12)
[2022-10-30] MEDS: CALCIUM 600MG + VIT D 400 IU TAB PO SCH (09:55)
[2022-10-30] MEDS: METOPROLOL SUCC 50MG EXT REL TAB PO SCH (09:56)
[2022-10-30] MEDS: TRIAMCINOLONE ACET 0.1% CR 15 GM TUBE TOP SCH ×2 (09:56→21:15)
[2022-10-30] MEDS: LORATADINE 10 MG TAB PO SCH (09:56)
[2022-10-30] MEDS: lisinopril 20 MG TAB PO SCH (09:56)
[2022-10-30] MEDS: CEROVITE ADV FORMULA TAB PO SCH (09:57)
[2022-10-30] MEDS: PANTOprazole 40 MG TAB PO SCH ×2 (09:57→21:12)
[2022-10-30] MEDS: NYSTATIN SUSP 500,000 U/5 ML UDC PO SCH ×4 (09:57→21:16)
[2022-10-30] MEDS: SERTRALINE HCL 100 MG TABLET PO SCH (09:58)
[2022-10-30] MEDS: MICONAZOLE NITRATE POWDER 85 GM EXT SCH ×3 (10:01→21:13)
--- NOTE | 2022-10-30 13:24 | Communication Note ---
Date of Service: October 30, 2022 Popliteal thrombus of leg is old. No new clots in either lower extremity. Do not needs a filter prior to his back surgery. Would anticoagulate if needed per spine surgery recommendations.
--- NOTE | 2022-10-30 13:58 | Hospitalist Progress Note ---
Date of Service October 30, 2022 Assessment & Plan (1) COVID-19: Plan: Patient initially tested + for COVID-19 in mid-September. He was hospitalized at that time and had acute hypoxic respiratory failure - treated with steroids, etc. He continues to test + on PCR testing. Interestingly he had several days of URI symptoms as well as cough/wheezing in the days leading up to this admission. His [employer] respiratory panel was negative for other viral pathogens. Additionally, pt's significant other tested negative for COVID in September multiple times. However, he tested + for COVID THIS PAST WEEK. Either patient has been re-infected or he has had ongoing COVID symptoms since his original index admission 09/24/22. Continue airborne precautions. Cont dexamethasone 4mg BID. This will help his COVID respiratory symptoms as well as his lumbar spine. Cont bronchodilators, flutter valve, mucinex, etc. Day #5 of 5 of Remdesivir -- no concrete pneumonia on cxr but O2 sats low 90s much of the last few days and has had b/l fine dry rales in the bases on examination. AST/ALT normal Procalcitonin negative. Defer on abx. (2) Spinal stenosis: Plan: Severe foraminal and central spinal stenosis on recent MRI l-spine. Seen by Dr Velazco's team during the prior hospitalization. Surgical intervention was offered but patient declined such. He is now willing to undergo surgery. Dr. Velazco plans to operate next Friday11/04/22. In meantime continue dexamethasone, tylenol, norco prn, dilaudid prn. Gentle PT/OT as tolerated. OOB to chair at least once daily, preferably twice daily. In preparation for possible lumbar back surgery, echo was obtained which was fairly unremarkable continue to Work on BP control. Vascular surgery consulted to determine if IVC filter should be placed. Venous duplex ultrasound ordered that did not show any new DVT, nor did it show the old DVT. Vascular surgery does not recommend IVC filter placement. Anticoagulation per orthospine postsurgery (3) Visual hallucinations: Plan: delirium from his COVID infection? toxic from gabapentin? gabapentin was stopped symptoms resolved recent MRI brain was normal (4) Weakness: Plan: multifactorial - recent or recurrent COVID-19 infection; deconditioning; toxic effects from narcotics/baclofen; known lumbar foraminal/spinal stenosis; adrenal crisis; other processes. MRI Brain neg for stroke. Oxycontine/oxycodone and baclofen stopped. cont PT, OT as tolerated. OOB to chair at least daily. Rx COVID-19. (5) Thrombocytopenia: Plan: Patient has been thrombocytopenic since his COVID dx in mid-September. peripheral smear unrevealing. immature platelet fraction returned normal making ITP unlikely. B12 and folate checked today - B12 low-normal; will replace. folate wnl. platelets HAVE improved while here with steroids. platelets were 80s, now up to 150s (6) HTN (hypertension): Plan: resumed amlodipine and still high - increase such to 5mg BID. Continue lisinopril at home dose of 20 mg p.o. daily Continue metoprolol. Blood pressure better controlled on current regimen (7) Anxiety: Plan: Cont sertraline. (8) Prostate cancer: Plan: Stage 4 with bony mets. On Zytiga and prednisone chronically. Follows with Dr Olivia Liriano - [facility]. MRI Brain neg for cva or metastatic disease. (9) Depression: Plan: Continue sertraline. (10) DMII (diabetes mellitus, type 2): Plan: a1c 7.7% 09/24/22. cont lantus cont novolog controlled (11) Atrial fibrillation: Plan: Permanent a.fib Rates mildly fast at times in the setting of pain, bodily stress from infection, etc but overnight rates were improved Cont metoprolol. He is NOT on chronic anticoagulation at baseline (records suggest due to gross hematuria??) If additional rate control is needed would use cardizem (and stop amlodipine). (12) Hypercholesterolemia: Plan: Cont lipitor. LFTs wnl. AST and ALT WNL (13) Prostate cancer metastatic to bone: Plan: As above. (14) Chronic steroid use: Plan: Prednisone 5mg daily for prostate cancer with bony mets. Employing dexamethasone for stress dose steroids at this time. (15) Acute deep vein thrombosis (DVT) of distal vein of left lower extremity: Plan: 10/12/22 - doppler of LLE showed "Nonocclusive thrombus in the left popliteal vein as well as one of 2 peroneal veins." Due to low platelets, h/o hematuria, and possible chronic nature of the DVT a decision was made not to anticoagulate at that time. RLE doppler study negative for DVT this admission. vascular surgery repeated lower extremity duplex. No new or old DVT seen. No IVC filter placement planned even though multiple VTE risk factors - COVID infection, significant immobility, upcoming surgery, etc. Plan to do DVT prophylaxis per orthospine postsurgically (16) Candidiasis of mouth and esophagus: Plan: Cont Nystatin 5ml ac/hs swish/swallow. Improved. (17) DVT prophylaxis: Plan: cont heparin TID (18) Balanitis: Plan: start miconazole powder TID urethral meatus area c/w sarita (19) Diarrhea: Plan: could be from COVID infection C. difficile negative Plan plan for spine surgery on 11/04. Admission and Anticipated Discharge Date Admission Date: October 24, 2022 Subjective Patient feels well overall. Denies chest pain or shortness of breath. Review of Systems Review of Systems: All systems reviewed & are unremarkable except as noted in Subjective Physical Exam Physical Exam: General: Awake, conversant Heart: S1, S2/regular rate and rhythm, no murmur rubs or gallops Lungs: Clear to auscultation bilaterally. Normal effort Abdomen: Soft/nontender/nondistended. No hepatosplenomegaly Extremities: No clubbing/cyanosis. mild bilateral leg swelling (patient says that his leg swelling is usually much worse than this) Behavior: Appropriate, cooperative Results & Data Results & Data Vital Signs (Past 12 Hours) Vital Signs Temp Pulse Pulse Resp BP Pulse Ox O2 Del Method 10/30/22 11:54 36.8 C 83 20 133/88 96 Room Air 10/30/22 07:08 68 10/30/22 07:41 36.8 C 80 20 146/98 H 94 Room Air 10/30/22 03:35 36.5 C 95 H 16 154/108 H 96 Room Air Laboratory Results Abnormal lab results 10/29/22 10/29/22 10/30/22 Range/Units 16:47 20:37 08:37 BUN 32 H (6-23) mg/dl BUN/Creatinine Ratio 27.1 H (10-20) Glucose 168 H (70-99(Fasting)) mg/dl POC Glucose 108 H 129 H (70-99) mg/dl Calcium 8.0 L (8.6-10.3) mg/dl 10/30/22 Range/Units 11:39 BUN (6-23) mg/dl BUN/Creatinine Ratio (10-20) Glucose (70-99(Fasting)) mg/dl POC Glucose 180 H (70-99) mg/dl Calcium (8.6-10.3) mg/dl PG Care Time/CCT Total # of Minutes Spent Total Time Spent with Patient: Total time spent is greater than 50% in coordination of care (as documented) at patient's floor/unit and/or counseling patient: Coding Level of Care Code 19941 SUB INP/OBS CARE 2/35MIN Diagnoses COVID-19 U07.1 Spinal stenosis M48.00 Spinal region: unspecified Visual hallucinations R44.1 Weakness R53.1 Thrombocytopenia D69.6 HTN (hypertension) I10 Anxiety F41.9 Prostate cancer C61 Depression F32.9 DMII (diabetes mellitus, type 2) E11.9 Atrial fibrillation I48.91 Hypercholesterolemia E78.00 Prostate cancer metastatic to bone C61; C79.51 Chronic steroid use Acute deep vein thrombosis (DVT) of distal vein of left lower extremity I82.4Z2 Candidiasis of mouth and esophagus B37.81; B37.0 DVT prophylaxis Z29.9 Balanitis N48.1 Diarrhea R19.7 (2) Spinal stenosis Spinal region: unspecified Qualified Code(s): M48.00 - Spinal stenosis, site unspecified
[2022-10-30] MEDS: REMDESIVIR 100 MG in SODIUM CHLORIDE 0.9% 230 ML IV SCH (15:29)
[2022-10-30] MEDS: MELATONIN 3 MG TAB PO SCH (21:15)
[2022-10-31] MEDS: HEPARIN SOD 5,000 UNIT/0.5 ML VIAL SQ SCH ×3 (05:47→21:42)
[2022-10-31] MEDS: INSULIN ASPART PER UNIT CHARGE SC SCH ×4 (09:00→21:28)
[2022-10-31] MEDS: LANTUS PER UNIT CHARGE SQ SCH ×2 (09:00→21:27)
[2022-10-31] MEDS: ABIRATERONE ACETATE 500 MG PO SCH (09:01)
[2022-10-31] MEDS: dexAMETHasone 4 MG in SYRINGE 0 ML IV SCH ×2 (09:02→21:38)
[2022-10-31] MEDS: TRIAMCINOLONE ACET 0.1% CR 15 GM TUBE TOP SCH ×2 (09:02→21:41)
[2022-10-31] MEDS: ATORVASTATIN 20 MG TAB PO SCH (09:03)
[2022-10-31] MEDS: lisinopril 20 MG TAB PO SCH (09:03)
[2022-10-31] MEDS: NYSTATIN SUSP 500,000 U/5 ML UDC PO SCH ×4 (09:03→21:39)
[2022-10-31] MEDS: amLODIPine BESYLATE 5 MG TAB PO SCH ×2 (09:04→21:36)
[2022-10-31] MEDS: CEROVITE ADV FORMULA TAB PO SCH (09:05)
[2022-10-31] MEDS: METOPROLOL SUCC 50MG EXT REL TAB PO SCH (09:05)
[2022-10-31] MEDS: CYANOCOBALAMIN (B-12) 500 MCG TABLET PO SCH (09:05)
[2022-10-31] MEDS: LORATADINE 10 MG TAB PO SCH (09:05)
[2022-10-31] MEDS: guaiFENesin 600 MG TABCR PO SCH ×2 (09:06→21:35)
[2022-10-31] MEDS: CALCIUM 600MG + VIT D 400 IU TAB PO SCH (09:06)
[2022-10-31] MEDS: SERTRALINE HCL 100 MG TABLET PO SCH (09:06)
[2022-10-31] MEDS: PANTOprazole 40 MG TAB PO SCH ×2 (09:06→21:39)
[2022-10-31] MEDS: MICONAZOLE NITRATE POWDER 85 GM EXT SCH ×3 (09:08→21:45)
[2022-10-31] MEDS: ACETAMINOPHEN 500 MG TAB PO SCH ×3 (09:09→21:46)
[2022-10-31 09:39] LABS: BUN Creatinine Ratio 27.8 (10-20); Calcium 8.4 mg/dl (8.6-10.3); Creatinine Clr Calc Pharmacy 64.7 ml/min; Est GFR (African American) 75.8 ml/min; Est GFR (Non-African American) 65.4 ml/min; Potassium 4.2 mmol/L (3.5-5.1)
[2022-10-31] MEDS: ONDANSETRON INJ 2 MG/ML 2 ML VIAL IV PRN (10:25)
[2022-10-31] MEDS: HYDROCODONE/ACETAMINOPHEN 7.5/325MG TAB PO PRN ×2 (13:38→21:31)
--- NOTE | 2022-10-31 13:48 | Hospitalist Progress Note ---
Date of Service October 31, 2022 Assessment & Plan (1) COVID-19: Plan: Patient initially tested + for COVID-19 in mid-September. He was hospitalized at that time and had acute hypoxic respiratory failure - treated with steroids, etc. He continues to test + on PCR testing. Interestingly he had several days of URI symptoms as well as cough/wheezing in the days leading up to this admission. His [employer] respiratory panel was negative for other viral pathogens. Additionally, pt's significant other tested negative for COVID in September multiple times. However, he tested + for COVID THIS PAST WEEK. Either patient has been re-infected or he has had ongoing COVID symptoms since his original index admission 09/24/22. Continue airborne precautions. Cont dexamethasone 4mg BID. This will help his COVID respiratory symptoms as well as his lumbar spine. Cont bronchodilators, flutter valve, mucinex, etc. Completed remdesivir 5-day course He is completely asymptomatic currently. No cough, no shortness of breath, no hypoxia. (2) Spinal stenosis: Plan: Severe foraminal and central spinal stenosis on recent MRI l-spine. Seen by Dr Velazco's team during the prior hospitalization. Surgical intervention was offered but patient declined such. He is now willing to undergo surgery. Dr. Velazco plans to operate next Friday11/04/22. In meantime continue dexamethasone, tylenol, norco prn, dilaudid prn. Gentle PT/OT as tolerated. OOB to chair at least once daily, preferably twice daily. In preparation for possible lumbar back surgery, echo was obtained which was fairly unremarkable continue to Work on BP control. Vascular surgery consulted to determine if IVC filter should be placed. Venous duplex ultrasound ordered that did not show any new DVT, nor did it show the old DVT. Vascular surgery does not recommend IVC filter placement. Anticoagulation per orthospine postsurgery (3) Visual hallucinations: Plan: delirium from his COVID infection? toxic from gabapentin? gabapentin was stopped symptoms resolved recent MRI brain was normal (4) Weakness: Plan: multifactorial - recent or recurrent COVID-19 infection; deconditioning; toxic effects from narcotics/baclofen; known lumbar foraminal/spinal stenosis; adrenal crisis; other processes. MRI Brain neg for stroke. Oxycontine/oxycodone and baclofen stopped. cont PT, OT as tolerated. OOB to chair at least daily. Rx COVID-19. (5) Thrombocytopenia: Plan: Patient has been thrombocytopenic since his COVID dx in mid-September. peripheral smear unrevealing. immature platelet fraction returned normal making ITP unlikely. B12 and folate checked today - B12 low-normal; will replace. folate wnl. platelets HAVE improved while here with steroids. platelets were 80s, now up to 150s (6) HTN (hypertension): Plan: resumed amlodipine and still high - increase such to 5mg BID. Continue lisinopril at home dose of 20 mg p.o. daily Continue metoprolol. Blood pressure better controlled on current regimen (7) Anxiety: Plan: Cont sertraline. (8) Prostate cancer: Plan: Stage 4 with bony mets. On Zytiga and prednisone chronically. Follows with Dr Olivia Liriano - [facility]. MRI Brain neg for cva or metastatic disease. (9) Depression: Plan: Continue sertraline. (10) DMII (diabetes mellitus, type 2): Plan: a1c 7.7% 09/24/22. cont lantus cont novolog controlled (11) Atrial fibrillation: Plan: Permanent a.fib Rates mildly fast at times in the setting of pain, bodily stress from infection, etc but overnight rates were improved Cont metoprolol. He is NOT on chronic anticoagulation at baseline (records suggest due to gross hematuria??) If additional rate control is needed would use cardizem (and stop amlodipine). (12) Hypercholesterolemia: Plan: Cont lipitor. LFTs wnl. AST and ALT WNL (13) Prostate cancer metastatic to bone: Plan: As above. (14) Chronic steroid use: Plan: Prednisone 5mg daily for prostate cancer with bony mets. Employing dexamethasone for stress dose steroids at this time. (15) Acute deep vein thrombosis (DVT) of distal vein of left lower extremity: Plan: 10/12/22 - doppler of LLE showed "Nonocclusive thrombus in the left popliteal vein as well as one of 2 peroneal veins." Due to low platelets, h/o hematuria, and possible chronic nature of the DVT a decision was made not to anticoagulate at that time. RLE doppler study negative for DVT this admission. vascular surgery repeated lower extremity duplex. No new or old DVT seen. No IVC filter placement planned even though multiple VTE risk factors - COVID infection, significant immobility, upcoming surgery, etc. Plan to do DVT prophylaxis per orthospine postsurgically (16) Candidiasis of mouth and esophagus: Plan: Cont Nystatin 5ml ac/hs swish/swallow. Improved. (17) DVT prophylaxis: Plan: cont heparin TID (18) Balanitis: Plan: start miconazole powder TID urethral meatus area c/w sarita (19) Diarrhea: Plan: could be from COVID infection C. difficile negative Patient had another episode of diarrhea today. Will monitor for now. Plan plan for spine surgery on 11/04. Admission and Anticipated Discharge Date Admission Date: October 24, 2022 Subjective patient stated that he had 1 episode of diarrhea this morning. He was also nauseous and was given a dose of Zofran. Currently he is not nauseous. He denies chest pain or shortness of breath. Review of Systems Review of Systems: All systems reviewed & are unremarkable except as noted in Subjective Physical Exam Physical Exam: General: Awake, conversant Heart: S1, S2/regular rate and rhythm, no murmur rubs or gallops Lungs: Clear to auscultation bilaterally. Normal effort Abdomen: Soft/nontender/nondistended. No hepatosplenomegaly Extremities: No clubbing/cyanosis. mild bilateral leg swelling (patient says that his leg swelling is usually much worse than this) Behavior: Appropriate, cooperative Results & Data Results & Data Vital Signs (Past 12 Hours) Vital Signs Temp Pulse Pulse Resp BP Pulse Ox O2 Del Method 10/31/22 11:42 36.7 C 93 H 20 118/84 94 Room Air 10/31/22 08:00 89 10/31/22 07:53 36.6 C 89 18 139/91 94 Room Air 10/31/22 04:17 36.4 C L 96 H 19 137/90 94 Room Air PG Care Time/CCT Total # of Minutes Spent Total Time Spent with Patient: Total time spent is greater than 50% in coordination of care (as documented) at patient's floor/unit and/or counseling patient: Coding Level of Care Code 51073 SUB INP/OBS CARE 2/35MIN Diagnoses COVID-19 U07.1 Spinal stenosis M48.00 Spinal region: unspecified Visual hallucinations R44.1 Weakness R53.1 Thrombocytopenia D69.6 HTN (hypertension) I10 Anxiety F41.9 Prostate cancer C61 Depression F32.9 DMII (diabetes mellitus, type 2) E11.9 Atrial fibrillation I48.91 Hypercholesterolemia E78.00 Prostate cancer metastatic to bone C61; C79.51 Chronic steroid use Acute deep vein thrombosis (DVT) of distal vein of left lower extremity I82.4Z2 Candidiasis of mouth and esophagus B37.81; B37.0 DVT prophylaxis Z29.9 Balanitis N48.1 Diarrhea R19.7 (2) Spinal stenosis Spinal region: unspecified Qualified Code(s): M48.00 - Spinal stenosis, site unspecified
[2022-10-31] MEDS: MELATONIN 3 MG TAB PO SCH (21:37)
[2022-11-01] MEDS: HEPARIN SOD 5,000 UNIT/0.5 ML VIAL SQ SCH ×3 (05:36→21:03)
[2022-11-01 07:26] LABS: BUN Creatinine Ratio 24.4 (10-20); Calcium 8.5 mg/dl (8.6-10.3); Creatinine Clr Calc Pharmacy 55.8 ml/min; Est GFR (African American) 64.8 ml/min; Est GFR (Non-African American) 55.9 ml/min; Potassium 5.1 mmol/L (3.5-5.1)
[2022-11-01 07:38] LABS: Hematocrit (blood only) 46.2 % (42.0-52.0); Hemoglobin 15.7 g/dl (14.0-18.0); Mean Corpuscular Hemoglobin 31.2 pg (25.0-34.0); Mean Corpuscular Volume 91.7 fL (80.0-100.0); RDW Coefficient of Variation 13.4 % (11.5-14.5); RDW Standard Deviation 45.1 fL (36.4-46.3); Red Blood Count 5.04 M/uL (4.70-6.10)
[2022-11-01] MEDS: lisinopril 20 MG TAB PO SCH (08:08)
[2022-11-01] MEDS: CYANOCOBALAMIN (B-12) 500 MCG TABLET PO SCH (08:08)
[2022-11-01] MEDS: ATORVASTATIN 20 MG TAB PO SCH (08:08)
[2022-11-01] MEDS: CALCIUM 600MG + VIT D 400 IU TAB PO SCH (08:09)
[2022-11-01] MEDS: amLODIPine BESYLATE 5 MG TAB PO SCH ×2 (08:09→20:58)
[2022-11-01] MEDS: guaiFENesin 600 MG TABCR PO SCH ×2 (08:09→20:59)
[2022-11-01] MEDS: PANTOprazole 40 MG TAB PO SCH ×2 (08:09→21:01)
[2022-11-01] MEDS: METOPROLOL SUCC 50MG EXT REL TAB PO SCH (08:10)
[2022-11-01] MEDS: LORATADINE 10 MG TAB PO SCH (08:10)
[2022-11-01] MEDS: CEROVITE ADV FORMULA TAB PO SCH (08:12)
[2022-11-01] MEDS: SERTRALINE HCL 100 MG TABLET PO SCH (08:12)
[2022-11-01 08:14] LABS: Basophils # (auto) 0.02 K/uL (0.00-0.20); Basophils % (auto) 0.2 %; Eosinophils # (auto) 0.01 K/uL (0.00-0.50); Eosinophils % (auto) 0.1 %; Immature Granulocytes # (auto) 0.89 K/uL (0.01-0.20); Immature Granulocytes % (auto) 9.2 %; Lymphocytes # (auto) 0.81 K/uL (1.20-3.40); Lymphocytes % (auto) 8.4 %; Mean Platelet Volume 10.1 fL (9.4-12.4); Monocytes # (auto) 0.41 K/uL (0.11-0.59); Monocytes % (auto) 4.2 %; Neutrophils # (auto) 7.54 K/uL (1.40-6.50); Neutrophils % (auto) 77.9 %; Platelet Count 158 K/uL (130-400); White Blood Count 9.68 K/ul (4.8-10.8)
[2022-11-01] MEDS: ABIRATERONE ACETATE 500 MG PO SCH (08:16)
[2022-11-01] MEDS: LANTUS PER UNIT CHARGE SQ SCH ×2 (08:25→20:17)
[2022-11-01] MEDS: INSULIN ASPART PER UNIT CHARGE SC SCH ×4 (08:25→20:17)
[2022-11-01] MEDS: ACETAMINOPHEN 500 MG TAB PO SCH ×3 (08:29→21:35)
[2022-11-01] MEDS: dexAMETHasone 4 MG in SYRINGE 0 ML IV SCH (08:30)
[2022-11-01] MEDS: MICONAZOLE NITRATE POWDER 85 GM EXT SCH ×3 (08:31→21:00)
[2022-11-01] MEDS: TRIAMCINOLONE ACET 0.1% CR 15 GM TUBE TOP SCH ×2 (08:31→21:03)
[2022-11-01] MEDS: NYSTATIN SUSP 500,000 U/5 ML UDC PO SCH ×4 (08:32→21:01)
--- NOTE | 2022-11-01 08:38 | Consultation ---
Date of Consultation November 01, 2022 History of Present Illness Attending Physician: Ananth Woodall MD History of Present Illness No consult needed Patient not a candidate for filter insertion as per communication notes of mine. Allergies Allergy/AdvReac Type Severity Reaction Status Date / Time cat dander Allergy Severe CAN CAUSE Verified 09/24/22 00:30 ASTHMA ATTACK-itchy eyes, congestion Home Medications Medication Instructions Recorded Confirmed Type abiraterone 500 mg tablet (Zytiga) 1,000 mg PO QAM 07/13/18 10/24/22 History calcium carbonate 500 mg-vitamin 1 tab PO QAM 07/13/18 10/24/22 History D3 5 mcg (200 unit) tablet (Calcium 500 + D) leuprolide (4 month) 30 mg (4 30 mg IM Q16W #1 ea 07/28/19 10/24/22 Rx month) intramuscular syringe kit (Lupron Depot) sertraline 100 mg tablet 100 mg PO QAM #90 tabs 09/01/19 10/24/22 Rx oxycodone 5 mg tablet 5 mg PO Q4H PRN Pain 03/16/20 10/24/22 History metoprolol succinate 200 mg 200 mg PO DAILY #90 tabs 07/15/22 10/24/22 Rx tablet,extended release 24 hr amlodipine 10 mg tablet 10 mg PO QAM #90 tabs 07/18/22 10/24/22 Rx lisinopril 20 mg tablet 20 mg PO DAILY #90 tabs 07/23/22 10/24/22 Rx omeprazole 20 mg delayed 20 mg PO QAM #90 tabs 09/03/22 10/24/22 Rx release,disintegrating tablet atorvastatin 20 mg tablet 20 mg PO QAM #90 tabs 09/18/22 10/24/22 Rx acetaminophen 500 mg tablet 1,000 mg PO DIRECTED PRN Pain 09/24/22 10/24/22 History (Tylenol Extra Strength) denosumab 120 mg/1.7 mL (70 mg/mL) 120 mg subcut DIRECTED 09/24/22 10/24/22 History subcutaneous solution (Xgeva) multivitamin with minerals 1 tab PO DAILY 09/24/22 10/24/22 History ondansetron 4 mg disintegrating 4 mg PO Q8H PRN NAUSEA/VOMITING 09/24/22 10/24/22 History tablet triamcinolone acetonide 0.1 % 1 applic topical DIRECTED 09/24/22 10/24/22 History topical cream amoxicillin 875 mg tablet 875 mg PO BIDM #10 tabs 10/19/22 10/24/22 Rx baclofen 10 mg tablet 10 mg PO TID #0 tabs 10/19/22 10/24/22 Rx loratadine 10 mg tablet (Wal-itin) 10 mg PO DAILY #0 tabs 10/19/22 10/24/22 Rx oxycodone 10 mg tablet,crush 10 mg PO BID #10 tabs 10/19/22 10/24/22 Rx resistant,extended release 12 hr (OxyContin) prednisone 10 mg tablet 10 mg PO TID #10 tabs 10/19/22 10/24/22 Rx glimepiride 2 mg tablet 2 mg PO QAM 10/24/22 10/24/22 History Patient History Medical History Acute deep vein thrombosis (DVT) of distal vein of left lower extremity 09/2022 Ambulatory dysfunction Androgen-induced osteoporosis Atrial fibrillation DX 2019 - FOLLOWS W/ DR. GRANADOS Chronic steroid use PROSTATE CANCER COVID-19 09/2022 requiring hospitalization DMII (diabetes mellitus, type 2) Fatigue Hydronephrosis of right kidney Hyperlipidemia IBS (irritable bowel syndrome) Insomnia Resolved Kidney stones Lumbar spondylosis Osteoarthritis Prostate cancer (11/03/14) Prostate nodule Psychosis Had hx of depression with psychotic episode - resolved Renal insufficiency Sacral lesion Thrombocytopenia Ureter injury OBSTRUCTION OF RT URETER 2/2 PROSTATE CA Urinary frequency Urinary incontinence Urge incontinence Urinary retention Resolved Urinary tract infection Resolved Surgical History History of cataract surgery 2019 - Bilat History of colonoscopy 2011 (due in 2021) History of prostate biopsy 2014 History of tonsillectomy as a child History of tooth extraction in age 19's S/P TURP 2014 Family History Mother , Passed age 60 of sepsis Gallbladder disease Mental disorder Psychological disorder Father , Passed age 89 of sepsis (infected bladder stones) Congestive heart failure Bladder stones Prostate cancer no treatment needed Brother Heart failure Kidney stones Kidney disease Bladder cancer, Onset Age: 75 Myocardial infarction Grandmother (Paternal) , Passed age 93 of old age Breast cancer, Onset Age: 40 double mastectomy and then did well Sister , Passed age 2 of pneumonia No problems noted. Other Has no children Denies family history of Colon cancer Ovarian cancer Social History Smoking Status: Former smoker Tobacco Type: Cigarettes Age Started Using Tobacco: 20; Age Quit Using Tobacco: 39; packs per day: 0.5; Second Hand Exposure: No; Do You Dip or Chew Tobacco: No; Hx Alcohol Use: No Hx Substance Use: No Preferred Language: [place] Communication Ability: Effective Communication Tools: Other Visual Impairment: Limited Hearing Ability: Normal Fax Machine Operator Required: No Beliefs That Will Affect Care: None marital status: Current Living Situation: Family and Significant Other Current Living Situation Comment: LIVES W/ OLIVER - current occupational status: retired 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 Other Information That Helps Us Care for You: No Feels Safe at Home: Yes Safety Concerns: Feels Safe At This Time Childhood Exposure to Second-Hand Smoke: No Diet: diabetic caffeine: Yes (1 cup of coffee/day ) during the past year weight has: remained stable Dental Care, Regularly: No Physical Activity Frequency: Does not Exercise Seatbelt Use: always Sunscreen Use: Yes Assistive Devices: Walker and Other Results & Data Vital Signs (Past 12 Hours) Vital Signs Temp Pulse Pulse Resp BP Pulse Ox O2 Del Method 11/01/22 07:22 82 11/01/22 07:18 36.5 C 68 18 134/90 97 Room Air 11/01/22 04:12 36.4 C L 84 16 121/86 94 Room Air 10/31/22 23:18 84 10/31/22 22:40 36.5 C 81 18 109/78 94 Room Air
--- NOTE | 2022-11-01 09:12 | Orthopedic Progress Note ---
Date of Service November 01, 2022 Assessment & Plan (1) Neurogenic claudication due to lumbar spinal stenosis: Plan: At this time patient is improving medically and would like to proceed with surgical invention. Would require a lumbar decompression and fusion L3-S1. Risk benefits pros cons and alternatives were outlined detail. We will plan for surgery on Friday as we have appropriate amount of OR time. We will make him n.p.o. after midnight Friday evening. Admission and Anticipated Discharge Date Admission Date: October 24, 2022 Subjective Patient continues to struggle with bilateral buttock and left leg pain markedly limiting his ability to stand and ambulate. He denies any shortness of breath or other symptoms at this time. Physical Exam Physical Exam: On exam he is comfortable in bed. Neurologic exam is unchanged. Results & Data Vital Signs (Past 12 Hours) Vital Signs Temp Pulse Pulse Resp BP Pulse Ox O2 Del Method 11/01/22 07:22 82 11/01/22 07:18 36.5 C 68 18 134/90 97 Room Air 11/01/22 04:12 36.4 C L 84 16 121/86 94 Room Air 10/31/22 23:18 84 10/31/22 22:40 36.5 C 81 18 109/78 94 Room Air
[2022-11-01] MEDS ORDERED: SODIUM CHLORIDE 0.9% 500 ML IV SCH (12:30)
[2022-11-01] MEDS: HYDROCODONE/ACETAMINOPHEN 7.5/325MG TAB PO PRN ×2 (13:19→21:36)
--- NOTE | 2022-11-01 14:58 | Hospitalist Progress Note ---
Date of Service November 01, 2022 Assessment & Plan (1) COVID-19: Plan: Patient initially tested + for COVID-19 in mid-September. He was hospitalized at that time and had acute hypoxic respiratory failure - treated with steroids, etc. He continues to test + on PCR testing. Interestingly he had several days of URI symptoms as well as cough/wheezing in the days leading up to this admission. His [employer] respiratory panel was negative for other viral pathogens. Additionally, pt's significant other tested negative for COVID in September multiple times. However, he tested + for COVID THIS PAST WEEK. Either patient has been re-infected or he has had ongoing COVID symptoms since his original index admission 09/24/22. Continue airborne precautions. has been on dexamethasone for a week. Discontinue Cont bronchodilators, flutter valve, mucinex, etc. Completed remdesivir 5-day course He is completely asymptomatic currently. No cough, no shortness of breath, no hypoxia. (2) Spinal stenosis: Plan: Severe foraminal and central spinal stenosis on recent MRI l-spine. Seen by Dr Velazco's team during the prior hospitalization. Surgical intervention was offered but patient had initially declined such. He is now willing to undergo surgery. Dr. Velazco plans to operate next Friday11/04/22. In meantime continue tylenol, norco prn, dilaudid prn. . Discontinued Decadron Gentle PT/OT as tolerated. OOB to chair at least once daily, preferably twice daily. In preparation for possible lumbar back surgery, echo was obtained which was fairly unremarkable continue to Work on BP control. Vascular surgery consulted to determine if IVC filter should be placed. Venous duplex ultrasound ordered that did not show any new DVT, nor did it show the old DVT. Vascular surgery does not recommend IVC filter placement. Anticoagulation per orthospine postsurgery (3) Visual hallucinations: Plan: delirium from his COVID infection? toxic from gabapentin? gabapentin was stopped symptoms resolved recent MRI brain was normal (4) Weakness: Plan: multifactorial - recent or recurrent COVID-19 infection; deconditioning; toxic effects from narcotics/baclofen; known lumbar foraminal/spinal stenosis; adrenal crisis; other processes. MRI Brain neg for stroke. Oxycontine/oxycodone and baclofen stopped. cont PT, OT as tolerated. OOB to chair at least daily. Rx COVID-19. (5) Thrombocytopenia: Plan: Patient has been thrombocytopenic since his COVID dx in mid-September. peripheral smear unrevealing. immature platelet fraction returned normal making ITP unlikely. B12 and folate checked today - B12 low-normal; will replace. folate wnl. platelets HAVE improved while here with steroids. platelets were 80s, now up to 150s (6) HTN (hypertension): Plan: resumed amlodipine and still high - increase such to 5mg BID. Continue lisinopril at home dose of 20 mg p.o. daily Continue metoprolol. Blood pressure better controlled on current regimen Patient appears mildly dehydrated after the 2 episodes of liquid/soft bowel movements yesterday and today. BUN and creatinine are trending upward although still within normal limit. Ordered 500 cc normal saline at 80 mils an hour. Check BMP in a.m. (7) Anxiety: Plan: Cont sertraline. (8) Prostate cancer: Plan: Stage 4 with bony mets. On Zytiga and prednisone chronically. Follows with Dr Olivia Liriano - [facility]. MRI Brain neg for cva or metastatic disease. (9) Depression: Plan: Continue sertraline. (10) DMII (diabetes mellitus, type 2): Plan: a1c 7.7% 09/24/22. cont lantus cont novolog controlled (11) Atrial fibrillation: Plan: Permanent a.fib Rates mildly fast at times in the setting of pain, bodily stress from infection, etc but overnight rates were improved Cont metoprolol. He is NOT on chronic anticoagulation at baseline (records suggest due to gross hematuria??) If additional rate control is needed would use cardizem (and stop amlodipine). (12) Hypercholesterolemia: Plan: Cont lipitor. LFTs wnl. AST and ALT WNL (13) Prostate cancer metastatic to bone: Plan: As above. (14) Chronic steroid use: Plan: resume Prednisone 5mg daily for prostate cancer with bony mets. Discontinued Decadron (15) Acute deep vein thrombosis (DVT) of distal vein of left lower extremity: Plan: 10/12/22 - doppler of LLE showed "Nonocclusive thrombus in the left popliteal vein as well as one of 2 peroneal veins." Due to low platelets, h/o hematuria, and possible chronic nature of the DVT a decision was made not to anticoagulate at that time. RLE doppler study negative for DVT this admission. vascular surgery repeated lower extremity duplex. No new or old DVT seen. No IVC filter placement planned even though multiple VTE risk factors - COVID infection, significant immobility, upcoming surgery, etc. Plan to do DVT prophylaxis per orthospine postsurgically (16) Candidiasis of mouth and esophagus: Plan: Cont Nystatin 5ml ac/hs swish/swallow. Improved. (17) DVT prophylaxis: Plan: cont heparin TID (18) Balanitis: Plan: start miconazole powder TID urethral meatus area c/w sarita (19) Diarrhea: Plan: could be from COVID infection C. difficile negative Patient had another episode of diarrhea today. Will monitor for now. Plan plan for spine surgery on 11/04. Admission and Anticipated Discharge Date Admission Date: October 24, 2022 Subjective patient had an episode of diarrhea yesterday. This morning he had 1 episode of loose stool. Per nurse it was not watery or foul-smelling. Review of Systems Review of Systems: All systems reviewed & are unremarkable except as noted in Subjective Physical Exam Physical Exam: General: Awake, conversant Heart: S1, S2/regular rate and rhythm, no murmur rubs or gallops Lungs: Clear to auscultation bilaterally. Normal effort Abdomen: Soft/nontender/nondistended. No hepatosplenomegaly Extremities: No clubbing/cyanosis. mild bilateral leg swelling (patient says that his leg swelling is usually much worse than this) Behavior: Appropriate, cooperative Results & Data Results & Data Vital Signs (Past 12 Hours) Vital Signs Temp Pulse Pulse Resp BP Pulse Ox O2 Del Method 11/01/22 07:22 82 11/01/22 07:18 36.5 C 68 18 134/90 97 Room Air 11/01/22 04:12 36.4 C L 84 16 121/86 94 Room Air Laboratory Results Abnormal lab results 10/31/22 10/31/22 11/01/22 Range/Units 16:38 20:26 06:07 Neut # (Auto) (1.40-6.50) K/uL Lymph # (Auto) (1.20-3.40) K/uL Immature Gran # (Auto) (0.01-0.20) K/uL BUN 30 H (6-23) mg/dl BUN/Creatinine Ratio 24.4 H (10-20) Glucose 145 H (70-99(Fasting)) mg/dl POC Glucose 133 H 165 H (70-99) mg/dl Calcium 8.5 L (8.6-10.3) mg/dl 11/01/22 11/01/22 11/01/22 Range/Units 06:07 07:19 12:00 Neut # (Auto) 7.54 H (1.40-6.50) K/uL Lymph # (Auto) 0.81 L (1.20-3.40) K/uL Immature Gran # (Auto) 0.89 H (0.01-0.20) K/uL BUN (6-23) mg/dl BUN/Creatinine Ratio (10-20) Glucose (70-99(Fasting)) mg/dl POC Glucose 131 H 148 H (70-99) mg/dl Calcium (8.6-10.3) mg/dl PG Care Time/CCT Total # of Minutes Spent Total Time Spent with Patient: Total time spent is greater than 50% in coordination of care (as documented) at patient's floor/unit and/or counseling patient: Coding Level of Care Code 03329 SUB INP/OBS CARE 235MIN Diagnoses COVID-19 U07.1 Spinal stenosis M48.00 Spinal region: unspecified Visual hallucinations R44.1 Weakness R53.1 Thrombocytopenia D69.6 HTN (hypertension) I10 Anxiety F41.9 Prostate cancer C61 Depression F32.9 DMII (diabetes mellitus, type 2) E11.9 Atrial fibrillation I48.91 Hypercholesterolemia E78.00 Prostate cancer metastatic to bone C61; C79.51 Chronic steroid use Acute deep vein thrombosis (DVT) of distal vein of left lower extremity I82.4Z2 Candidiasis of mouth and esophagus B37.81; B37.0 DVT prophylaxis Z29.9 Balanitis N48.1 Diarrhea R19.7 (2) Spinal stenosis Spinal region: unspecified Qualified Code(s): M48.00 - Spinal stenosis, site unspecified
[2022-11-01] MEDS: MELATONIN 3 MG TAB PO SCH (20:59)
[2022-11-02] MEDS: HEPARIN SOD 5,000 UNIT/0.5 ML VIAL SQ SCH ×3 (06:02→20:58)
[2022-11-02 07:28] LABS: BUN Creatinine Ratio 24.6 (10-20); Calcium 8.7 mg/dl (8.6-10.3); Creatinine Clr Calc Pharmacy 52.3 ml/min; Est GFR (African American) 58.4 ml/min; Est GFR (Non-African American) 50.4 ml/min; Potassium 4.9 mmol/L (3.5-5.1)
[2022-11-02] MEDS: INSULIN ASPART PER UNIT CHARGE SC SCH ×4 (08:27→20:43)
[2022-11-02] MEDS: SODIUM CHLORIDE 0.9% 1,000 ML IV SCH ×2 (08:51→17:08)
[2022-11-02] MEDS: METOPROLOL SUCC 50MG EXT REL TAB PO SCH (08:54)
[2022-11-02] MEDS: PANTOprazole 40 MG TAB PO SCH ×2 (08:54→20:57)
[2022-11-02] MEDS: LORATADINE 10 MG TAB PO SCH (08:54)
[2022-11-02] MEDS: SERTRALINE HCL 100 MG TABLET PO SCH (08:55)
[2022-11-02] MEDS: CYANOCOBALAMIN (B-12) 500 MCG TABLET PO SCH (08:55)
[2022-11-02] MEDS: guaiFENesin 600 MG TABCR PO SCH ×2 (08:55→20:57)
[2022-11-02] MEDS: CALCIUM 600MG + VIT D 400 IU TAB PO SCH (08:55)
[2022-11-02] MEDS: CEROVITE ADV FORMULA TAB PO SCH (08:55)
[2022-11-02] MEDS: ATORVASTATIN 20 MG TAB PO SCH (08:55)
[2022-11-02] MEDS: predniSONE 5 MG TAB PO SCH (08:55)
[2022-11-02] MEDS: amLODIPine BESYLATE 5 MG TAB PO SCH ×2 (08:55→20:57)
[2022-11-02] MEDS: NYSTATIN SUSP 500,000 U/5 ML UDC PO SCH ×4 (08:56→20:56)
[2022-11-02] MEDS: MICONAZOLE NITRATE POWDER 85 GM EXT SCH ×3 (09:00→20:55)
[2022-11-02] MEDS: LANTUS PER UNIT CHARGE SQ SCH ×2 (09:05→20:43)
[2022-11-02] MEDS: HYDROCODONE/ACETAMINOPHEN 7.5/325MG TAB PO PRN ×2 (09:09→20:59)
[2022-11-02] MEDS: ACETAMINOPHEN 500 MG TAB PO SCH ×3 (09:09→20:56)
[2022-11-02] MEDS: TRIAMCINOLONE ACET 0.1% CR 15 GM TUBE TOP SCH ×2 (09:10→20:58)
[2022-11-02] MEDS: ABIRATERONE ACETATE 500 MG PO SCH (09:28)
--- NOTE | 2022-11-02 10:29 | XRay Report ---
XR chest 1V portable CLINICAL HISTORY: eval for fluid overload TECHNIQUE: Single frontal radiograph of the chest was obtained. Comparison: Comparison is made to chest radiograph 10/26/2022 FINDINGS: No lines and tubes are seen. Calcified aortic knob is seen. Lungs are underinflated but clear. No juma dence of pleural effusion or pneumothorax. IMPRESSION: No acute abnormality and in particular no evidence of pulmonary edema. ACT 112: Negative or not required by law. Electronically signed by: Paulino Saha M.D. 11/02/2022 10:26 AM
--- NOTE | 2022-11-02 11:10 | Hospitalist Progress Note ---
Date of Service November 02, 2022 Assessment & Plan (1) COVID-19: Plan: Patient initially tested + for COVID-19 in mid-September. He was hospitalized at that time and had acute hypoxic respiratory failure - treated with steroids, etc. He continues to test + on PCR testing. Interestingly he had several days of URI symptoms as well as cough/wheezing in the days leading up to this admission. His [employer] respiratory panel was negative for other viral pathogens. Additionally, pt's significant other tested negative for COVID in September multiple times. However, he tested + for COVID THIS PAST WEEK. Either patient has been re-infected or he has had ongoing COVID symptoms since his original index admission 09/24/22. Continue airborne precautions. has been on dexamethasone for a week. Discontinued Cont bronchodilators, flutter valve, mucinex, etc. Completed remdesivir 5-day course He is completely asymptomatic currently. No cough, no shortness of breath, no hypoxia. (2) Spinal stenosis: Plan: Severe foraminal and central spinal stenosis on recent MRI l-spine. Seen by Dr Velazco's team during the prior hospitalization. Surgical intervention was offered but patient had initially declined such. He is now willing to undergo surgery. Dr. Velazco plans to operate next Friday11/04/22. In meantime continue tylenol, norco prn, dilaudid prn. . Discontinued Decadron Gentle PT/OT as tolerated. OOB to chair at least once daily, preferably twice daily. In preparation for possible lumbar back surgery, echo was obtained which was fairly unremarkable Vascular surgery consulted to determine if IVC filter should be placed. Venous duplex ultrasound ordered that did not show any new DVT, nor did it show the old DVT. Vascular surgery does not recommend IVC filter placement. Anticoagulation per orthospine postsurgery (3) Visual hallucinations: Plan: delirium from his COVID infection? toxic from gabapentin? gabapentin was stopped symptoms resolved recent MRI brain was normal (4) Weakness: Plan: multifactorial - recent or recurrent COVID-19 infection; deconditioning; toxic effects from narcotics/baclofen; known lumbar foraminal/spinal stenosis; adrenal crisis; other processes. MRI Brain neg for stroke. Oxycontine/oxycodone and baclofen stopped. cont PT, OT as tolerated. OOB to chair at least daily. Rx COVID-19. (5) Thrombocytopenia: Plan: Patient has been thrombocytopenic since his COVID dx in mid-September. peripheral smear unrevealing. immature platelet fraction returned normal making ITP unlikely. B12 and folate checked today - B12 low-normal; will replace. folate wnl. platelets HAVE improved while here with steroids. platelets were 80s, now up to 150s (6) HTN (hypertension): Plan: resumed amlodipine and still high - increase such to 5mg BID. Hold lisinopril since slowly rising BUN and creatinine Continue metoprolol. Blood pressure better controlled on current regimen Patient appears mildly dehydrated after the 2 episodes of liquid/soft bowel movements 10/31 and 11/01.. He was given 500 cc of normal saline yesterday 11/01. BUN and creatinine Continue to trend upward although still within normal limit. chest x-ray does not show any volume overload. patient is not hypoxic. He is most likely still dehydrated. I ordered 1 L of IV fluid gently. Recheck BMP in a.m. (7) Anxiety: Plan: Cont sertraline. (8) Prostate cancer: Plan: Stage 4 with bony mets. On Zytiga and prednisone chronically. Follows with Dr Olivia Liriano - [facility]. MRI Brain neg for cva or metastatic disease. (9) Depression: Plan: Continue sertraline. (10) DMII (diabetes mellitus, type 2): Plan: a1c 7.7% 09/24/22. cont lantus cont novolog controlled (11) Atrial fibrillation: Plan: Permanent a.fib Rates mildly fast at times in the setting of pain, bodily stress from infection, etc but overnight rates were improved Cont metoprolol. He is NOT on chronic anticoagulation at baseline (records suggest due to gross hematuria??) If additional rate control is needed would use cardizem (and stop amlodipine). (12) Hypercholesterolemia: Plan: Cont lipitor. LFTs wnl. AST and ALT WNL (13) Prostate cancer metastatic to bone: Plan: As above. (14) Chronic steroid use: Plan: resumed Prednisone 5mg daily for prostate cancer with bony mets. Discontinued Decadron (15) Acute deep vein thrombosis (DVT) of distal vein of left lower extremity: Plan: 10/12/22 - doppler of LLE showed "Nonocclusive thrombus in the left popliteal vein as well as one of 2 peroneal veins." Due to low platelets, h/o hematuria, and possible chronic nature of the DVT a decision was made not to anticoagulate at that time. RLE doppler study negative for DVT this admission. vascular surgery repeated lower extremity duplex. No new or old DVT seen. No IVC filter placement planned even though multiple VTE risk factors - COVID infection, significant immobility, upcoming surgery, etc. Plan to do DVT prophylaxis per orthospine postsurgically (16) Candidiasis of mouth and esophagus: Plan: Cont Nystatin 5ml ac/hs swish/swallow. Improved. (17) DVT prophylaxis: Plan: cont heparin TID (18) Balanitis: Plan: start miconazole powder TID urethral meatus area c/w sarita (19) Diarrhea: Plan: could be from COVID infection C. difficile negative Patient had another episode of diarrhea today. Will monitor for now. Plan plan for spine surgery on 11/04. Admission and Anticipated Discharge Date Admission Date: October 24, 2022 Subjective patient feels well. Denies chest pain or shortness of breath. Waiting for surgery on Friday. No diarrhea today. No concerns today. Review of Systems Review of Systems: All systems reviewed & are unremarkable except as noted in HPI & below Physical Exam Physical Exam: General: Awake, conversant Heart: S1, S2/regular rate and rhythm, no murmur rubs or gallops Lungs: Clear to auscultation bilaterally. Normal effort Abdomen: Soft/nontender/nondistended. No hepatosplenomegaly Extremities: No clubbing/cyanosis. mild bilateral leg swelling (patient says that his leg swelling is usually much worse than this) Behavior: Appropriate, cooperative Results & Data Results & Data Vital Signs (Past 12 Hours) Vital Signs Temp Pulse Resp BP Pulse Ox O2 Del Method 11/02/22 11:04 36.5 C 90 18 107/72 93 Room Air 11/02/22 08:09 36.5 C 86 18 123/89 94 Room Air 11/02/22 02:43 36.4 C L 82 18 146/96 H 91 Room Air 11/01/22 23:27 36.5 C 83 20 116/78 95 Room Air PG Care Time/CCT Total # of Minutes Spent Total Time Spent with Patient: Total time spent is greater than 50% in coordination of care (as documented) at patient's floor/unit and/or counseling patient: Coding Level of Care Code 16694 SUB INP/OBS CARE Diagnoses COVID-19 U07.1 Spinal stenosis M48.00 Spinal region: unspecified Visual hallucinations R44.1 Weakness R53.1 Thrombocytopenia D69.6 HTN (hypertension) I10 Anxiety F41.9 Prostate cancer C61 Depression F32.9 DMII (diabetes mellitus, type 2) E11.9 Atrial fibrillation I48.91 Hypercholesterolemia E78.00 Prostate cancer metastatic to bone C61; C79.51 Chronic steroid use Acute deep vein thrombosis (DVT) of distal vein of left lower extremity I82.4Z2 Candidiasis of mouth and esophagus B37.81; B37.0 DVT prophylaxis Z29.9 Balanitis N48.1 Diarrhea R19.7 (2) Spinal stenosis Spinal region: unspecified Qualified Code(s): M48.00 - Spinal stenosis, site unspecified
[2022-11-02] MEDS: MELATONIN 3 MG TAB PO SCH (20:56)
[2022-11-03] MEDS: SODIUM CHLORIDE 0.9% 1,000 ML IV SCH (05:24)
[2022-11-03] MEDS: HEPARIN SOD 5,000 UNIT/0.5 ML VIAL SQ SCH ×3 (05:25→15:53)
[2022-11-03 06:18] LABS: BUN Creatinine Ratio 26.3 (10-20); Calcium 8.3 mg/dl (8.6-10.3); Est GFR (African American) 68.1 ml/min; Est GFR (Non-African American) 58.8 ml/min; Potassium 4.4 mmol/L (3.5-5.1)
[2022-11-03] MEDS: INSULIN ASPART PER UNIT CHARGE SC SCH ×4 (08:23→20:51)
[2022-11-03] MEDS: LANTUS PER UNIT CHARGE SQ SCH ×2 (08:24→20:59)
[2022-11-03] MEDS: ABIRATERONE ACETATE 500 MG PO SCH (08:25)
[2022-11-03] MEDS: ONDANSETRON INJ 2 MG/ML 2 ML VIAL IV PRN (08:53)
[2022-11-03] MEDS: ACETAMINOPHEN 500 MG TAB PO SCH ×3 (08:54→21:17)
[2022-11-03] MEDS: HYDROCODONE/ACETAMINOPHEN 7.5/325MG TAB PO PRN (08:54)
[2022-11-03] MEDS: PANTOprazole 40 MG TAB PO SCH ×2 (08:55→21:15)
[2022-11-03] MEDS: amLODIPine BESYLATE 5 MG TAB PO SCH ×2 (08:56→21:00)
[2022-11-03] MEDS: LORATADINE 10 MG TAB PO SCH (08:56)
[2022-11-03] MEDS: CALCIUM 600MG + VIT D 400 IU TAB PO SCH (08:56)
[2022-11-03] MEDS: NYSTATIN SUSP 500,000 U/5 ML UDC PO SCH ×3 (08:56→17:00)
[2022-11-03] MEDS: CYANOCOBALAMIN (B-12) 500 MCG TABLET PO SCH (08:57)
[2022-11-03] MEDS: predniSONE 5 MG TAB PO SCH (08:57)
[2022-11-03] MEDS: CEROVITE ADV FORMULA TAB PO SCH (08:57)
[2022-11-03] MEDS: SERTRALINE HCL 100 MG TABLET PO SCH (08:57)
[2022-11-03] MEDS: METOPROLOL SUCC 50MG EXT REL TAB PO SCH (08:57)
[2022-11-03] MEDS: ATORVASTATIN 20 MG TAB PO SCH (08:57)
[2022-11-03] MEDS: TRIAMCINOLONE ACET 0.1% CR 15 GM TUBE TOP SCH ×2 (08:58→21:14)
[2022-11-03] MEDS: guaiFENesin 600 MG TABCR PO SCH ×2 (08:58→21:15)
[2022-11-03] MEDS: MICONAZOLE NITRATE POWDER 85 GM EXT SCH ×3 (09:02→21:14)
--- NOTE | 2022-11-03 12:04 | Hospitalist Progress Note ---
Date of Service November 03, 2022 Assessment & Plan (1) COVID-19: Plan: Patient initially tested + for COVID-19 in mid-September. He was hospitalized at that time and had acute hypoxic respiratory failure - treated with steroids, etc. He continues to test + on PCR testing. Interestingly he had several days of URI symptoms as well as cough/wheezing in the days leading up to this admission. His [employer] respiratory panel was negative for other viral pathogens. Additionally, pt's significant other tested negative for COVID in September multiple times. However, he tested + for COVID THIS PAST WEEK. Either patient has been re-infected or he has had ongoing COVID symptoms since his original index admission 09/24/22. has been on dexamethasone for a week. Discontinued Cont bronchodilators, flutter valve, mucinex, etc. Completed remdesivir 5-day course He is completely asymptomatic currently. No cough, no shortness of breath, no hypoxia. (2) Spinal stenosis: Plan: Severe foraminal and central spinal stenosis on recent MRI l-spine. Seen by Dr Velazco's team during the prior hospitalization. Surgical intervention was offered but patient had initially declined such. He is now willing to undergo surgery. Dr. Velazco plans to operate next Friday11/04/22. In meantime continue tylenol, norco prn, dilaudid prn. . Discontinued Decadron Gentle PT/OT as tolerated. OOB to chair at least once daily, preferably twice daily. In preparation for possible lumbar back surgery, echo was obtained which was fairly unremarkable Vascular surgery consulted to determine if IVC filter should be placed. Venous duplex ultrasound ordered that did not show any new DVT, nor did it show the old DVT. Vascular surgery does not recommend IVC filter placement. Anticoagulation per orthospine postsurgery (3) Visual hallucinations: Plan: delirium from his COVID infection? toxic from gabapentin? gabapentin was stopped symptoms resolved recent MRI brain was normal (4) Weakness: Plan: multifactorial - recent or recurrent COVID-19 infection; deconditioning; toxic effects from narcotics/baclofen; known lumbar foraminal/spinal stenosis; adrenal crisis; other processes. MRI Brain neg for stroke. Oxycontine/oxycodone and baclofen stopped. cont PT, OT as tolerated. OOB to chair at least daily. Rx COVID-19. (5) Thrombocytopenia: Plan: Patient has been thrombocytopenic since his COVID dx in mid-September. peripheral smear unrevealing. immature platelet fraction returned normal making ITP unlikely. B12 low-normal; replaced. folate wnl. platelets HAVE improved while here with steroids. platelets were 80s, now up to 150s (6) HTN (hypertension): Plan: resumed amlodipine and still high - increase such to 5mg BID. Hold lisinopril since slowly rising BUN and creatinine and preoperatively Continue metoprolol. Blood pressure better controlled on current regimen Patient appears mildly dehydrated after the 2 episodes of liquid/soft bowel movements 10/31 and 11/01.. he was given IV fluid with improvement in BUN and creatinine. chest x-ray does not show any volume overload. patient is not hypoxic. (7) Anxiety: Plan: Cont sertraline. (8) Prostate cancer: Plan: Stage 4 with bony mets. On Zytiga and prednisone chronically. Follows with Dr Olivia Liriaon - [facility]. MRI Brain neg for cva or metastatic disease. (9) Depression: Plan: Continue sertraline. (10) DMII (diabetes mellitus, type 2): Plan: a1c 7.7% 09/24/22. cont lantus cont novolog controlled (11) Atrial fibrillation: Plan: Permanent a.fib Rates mildly fast at times in the setting of pain, bodily stress from infection, etc but overnight rates were improved Cont metoprolol. He is NOT on chronic anticoagulation at baseline (records suggest due to gross hematuria??) If additional rate control is needed would use cardizem (and stop amlodipine). (12) Hypercholesterolemia: Plan: Cont lipitor. LFTs wnl. AST and ALT WNL (13) Prostate cancer metastatic to bone: Plan: As above. (14) Chronic steroid use: Plan: resumed Prednisone 5mg daily for prostate cancer with bony mets. Discontinued Decadron Ordered stress dose of hydrocortisone IV for tomorrow in preparation for surgery (15) Acute deep vein thrombosis (DVT) of distal vein of left lower extremity: Plan: 10/12/22 - doppler of LLE showed "Nonocclusive thrombus in the left popliteal vein as well as one of 2 peroneal veins." Due to low platelets, h/o hematuria, and possible chronic nature of the DVT a decision was made not to anticoagulate at that time. RLE doppler study negative for DVT this admission. vascular surgery repeated lower extremity duplex. No new or old DVT seen. No IVC filter placement planned even though multiple VTE risk factors - COVID infection, significant immobility, upcoming surgery, etc. Plan to do DVT prophylaxis per orthospine postsurgically (16) Candidiasis of mouth and esophagus: Plan: Cont Nystatin 5ml ac/hs swish/swallow. Improved. (17) DVT prophylaxis: Plan: cont heparin TID (18) Balanitis: Plan: start miconazole powder TID urethral meatus area c/w sarita (19) Diarrhea: Plan: could be from COVID infection C. difficile negative Plan plan for spine surgery on 11/04. Admission and Anticipated Discharge Date Admission Date: October 24, 2022 Subjective patient feels well overall. Denies chest pain, shortness of breath. No diarrhea. No vomiting. He is mentally preparing for surgery tomorrow Review of Systems Review of Systems: All systems reviewed & are unremarkable except as noted in Subjective Physical Exam Physical Exam: General: Awake, conversant Heart: S1, S2/regular rate and rhythm, no murmur rubs or gallops Lungs: Clear to auscultation bilaterally. Normal effort Abdomen: Soft/nontender/nondistended. No hepatosplenomegaly Extremities: No clubbing/cyanosis. mild bilateral leg swelling (patient says that his leg swelling is usually much worse than this) Behavior: Appropriate, cooperative Results & Data Results & Data Vital Signs (Past 12 Hours) Vital Signs Temp Pulse Pulse Resp BP Pulse Ox O2 Del Method 11/03/22 11:34 36.7 C 88 18 100/71 94 Room Air 11/03/22 09:37 82 11/03/22 09:37 Room Air 11/03/22 07:36 36.7 C 91 H 18 114/83 93 Room Air 11/03/22 02:46 36.7 C 88 16 115/82 94 Room Air PG Care Time/CCT Total # of Minutes Spent Total Time Spent with Patient: Total time spent is greater than 50% in coordination of care (as documented) at patient's floor/unit and/or counseling patient: Coding Level of Care Code 88231 SUB INP/OBS CARE 2/35MIN Diagnoses COVID-19 U07.1 Spinal stenosis M48.00 Spinal region: unspecified Visual hallucinations R44.1 Weakness R53.1 Thrombocytopenia D69.6 HTN (hypertension) I10 Anxiety F41.9 Prostate cancer C61 Depression F32.9 DMII (diabetes mellitus, type 2) E11.9 Atrial fibrillation I48.91 Hypercholesterolemia E78.00 Prostate cancer metastatic to bone C61; C79.51 Chronic steroid use Acute deep vein thrombosis (DVT) of distal vein of left lower extremity I82.4Z2 Candidiasis of mouth and esophagus B37.81; B37.0 DVT prophylaxis Z29.9 Balanitis N48.1 Diarrhea R19.7 (2) Spinal stenosis Spinal region: unspecified Qualified Code(s): M48.00 - Spinal stenosis, site unspecified
[2022-11-03] MEDS: MELATONIN 3 MG TAB PO SCH (21:15)
[2022-11-04] MEDS: HEPARIN SOD 5,000 UNIT/0.5 ML VIAL SQ SCH ×3 (05:05→21:23)
[2022-11-04 07:13] LABS: BUN Creatinine Ratio 25.6 (10-20); Blood Urea Nitrogen 23 mg/dl (6-23); Calcium 8.4 mg/dl (8.6-10.3); Carbon Dioxide 23 mmol/L (21-32); Chloride 107 mmol/L (98-107); Creatinine Clr Calc Pharmacy 77.6 ml/min; Est GFR (African American) 94.5 ml/min; Est GFR (Non-African American) 81.5 ml/min; Glucose 93 mg/dl (70-99(Fasting))
[2022-11-04 07:55] LABS: Potassium 4.6 mmol/L (3.5-5.1)
[2022-11-04] MEDS: INSULIN ASPART PER UNIT CHARGE SC SCH ×4 (08:03→21:23)
[2022-11-04] MEDS: MICONAZOLE NITRATE POWDER 85 GM EXT SCH ×3 (08:38→21:23)
[2022-11-04] MEDS ORDERED: LANTUS PER UNIT CHARGE SQ ONE (08:39)
[2022-11-04] MEDS: ACETAMINOPHEN 500 MG TAB PO SCH ×3 (08:51→21:22)
[2022-11-04] MEDS: CYANOCOBALAMIN (B-12) 500 MCG TABLET PO SCH (08:52)
[2022-11-04] MEDS: ATORVASTATIN 20 MG TAB PO SCH (08:52)
[2022-11-04] MEDS: PANTOprazole 40 MG TAB PO SCH ×2 (08:52→21:23)
[2022-11-04] MEDS: METOPROLOL SUCC 50MG EXT REL TAB PO SCH (08:52)
[2022-11-04] MEDS: CALCIUM 600MG + VIT D 400 IU TAB PO SCH (08:53)
[2022-11-04] MEDS: SERTRALINE HCL 100 MG TABLET PO SCH (08:53)
[2022-11-04] MEDS: amLODIPine BESYLATE 5 MG TAB PO SCH (08:53)
[2022-11-04] MEDS: CEROVITE ADV FORMULA TAB PO SCH (08:53)
[2022-11-04] MEDS: LORATADINE 10 MG TAB PO SCH (08:53)
[2022-11-04] MEDS: guaiFENesin 600 MG TABCR PO SCH ×2 (08:54→21:23)
[2022-11-04] MEDS: HYDROCODONE/ACETAMINOPHEN 7.5/325MG TAB PO PRN ×2 (08:54→23:59)
[2022-11-04] MEDS: predniSONE 5 MG TAB PO SCH (08:54)
[2022-11-04] MEDS: TRIAMCINOLONE ACET 0.1% CR 15 GM TUBE TOP SCH ×2 (08:55→21:24)
[2022-11-04] MEDS: LANTUS PER UNIT CHARGE SQ SCH ×2 (08:56→21:26)
[2022-11-04] MEDS ORDERED: DEXTROSE 50% 50 ML SYRINGE IV PRN (09:00)
[2022-11-04] MEDS ORDERED: GLUCOSE 40% GEL 15 GM TUBE PO PRN (09:00)
[2022-11-04] MEDS ORDERED: CARBOHYDRATES FOR HYPOGLYCEMIA PO PRN (09:00)
[2022-11-04] MEDS ORDERED: GLUCOSE 10 TAB/TUBE PO PRN (09:00)
[2022-11-04] MEDS ORDERED: GLUCAGON FOR INJ 1 MG VIAL IM PRN (09:00)
[2022-11-04] MEDS: HYDROCORTISONE SOD 50 MG in SYRINGE 0 ML IV SCH ×3 (09:03→23:59)
[2022-11-04] MEDS: ABIRATERONE ACETATE 500 MG PO SCH (09:22)
[2022-11-04] MEDS ORDERED: DEXAMETHASONE SOD INJ 4 MG/ML VIAL ONE (10:39)
[2022-11-04] MEDS ORDERED: ONDANSETRON INJ 2 MG/ML 2 ML VIAL ONE ×2 (10:39→13:22)
[2022-11-04] MEDS ORDERED: LIDOCAINE 2% 2 ML VIAL/AMP(20MG/ML) INFIL ONE ×4 (10:39→13:43)
[2022-11-04] MEDS ORDERED: PROPOFOL IV EMULSION 10 MG/ML 20 ML VIAL IV ONE ×3 (10:39→13:43)
[2022-11-04] MEDS ORDERED: fentaNYL citrate PF 100 MCG/2 ML VIAL ONE (10:39)
[2022-11-04] MEDS ORDERED: ROCURONIUM BROMIDE 10 MG/ML 5 ML VIAL IV ONE ×4 (10:41→13:39)
[2022-11-04] MEDS ORDERED: ceFAZolin 330 MG/ML 1 GM VIAL ONE (11:00)
[2022-11-04] MEDS ORDERED: BUPIVACAINE/EPINEPHRINE 0.25% 1:200,000 30 ML VIAL ONE (11:00)
[2022-11-04] MEDS ORDERED: ATROPINE SULFATE 0.1 MG/ML 10ML SYR IV PRN (11:19)
[2022-11-04] MEDS ORDERED: HYDROmorphone INJ 1 MG/ML SYRINGE IV PRN ×2 (11:19→17:18)
[2022-11-04] MEDS ORDERED: fentaNYL citrate PF 100 MCG/2 ML VIAL IV PRN (11:19)
[2022-11-04] MEDS ORDERED: ONDANSETRON INJ 2 MG/ML 2 ML VIAL IV PRN (11:19)
[2022-11-04] MEDS ORDERED: PHENYLEPHRINE HCL 10 MG/ML VIAL ONE (11:47)
[2022-11-04] MEDS ORDERED: ePHEDrine sulfate 50 MG/ML AMP ONE ×2 (11:47→14:38)
--- NOTE | 2022-11-04 11:54 | Anesthesiology Consultation ---
Date of Service November 04, 2022 Assessment & Plan (1) Encounter for pre-operative examination: Chart Review Chart Review: Acceptable Risk for Surgery and Patient NOT seen in Pre Admission Testing Patient at high risk for surgery (especially from pulmonary standpoint) but does appear to be improving medically and appears optimized enough to undergo necessary spinal surgery. Patient in agreement that DNR/DNI will be suspended during perioperative period and will resume after surgery once he is through phase 1 recovery. All questions answered. Consults Requested none History Surgery Operation Date: 11/04/22 11:55 Proposed Procedures p Decompression and Fusion L3-S1 - Benedict Velazco, Height/Weight Height: 5 ft 6 in Weight: 107.1 kg Allergies Allergy/AdvReac Type Severity Reaction Status Date / Time cat dander Allergy Severe CAN CAUSE Verified 09/24/22 00:30 ASTHMA ATTACK-itchy eyes, congestion Medications Home Medications Medication Instructions Recorded Confirmed Last Taken abiraterone 500 mg tablet (Zytiga) 1,000 mg PO QAM 07/13/18 10/24/22 10/24/22 calcium carbonate 500 mg-vitamin 1 tab PO QAM 07/13/18 10/24/22 10/24/22 D3 5 mcg (200 unit) tablet (Calcium 500 + D) leuprolide (4 month) 30 mg (4 30 mg IM Q16W #1 ea 07/28/19 10/24/22 Unknown month) intramuscular syringe kit (Lupron Depot) sertraline 100 mg tablet 100 mg PO QAM #90 tabs 09/01/19 10/24/22 10/24/22 oxycodone 5 mg tablet 5 mg PO Q4H PRN Pain 03/16/20 10/24/22 Unknown metoprolol succinate 200 mg 200 mg PO DAILY #90 tabs 07/15/22 10/24/22 10/12/22 tablet,extended release 24 hr amlodipine 10 mg tablet 10 mg PO QAM #90 tabs 07/18/22 10/24/22 10/24/22 lisinopril 20 mg tablet 20 mg PO DAILY #90 tabs 07/23/22 10/24/22 10/12/22 omeprazole 20 mg delayed 20 mg PO QAM #90 tabs 09/03/22 10/24/22 10/24/22 release,disintegrating tablet atorvastatin 20 mg tablet 20 mg PO QAM #90 tabs 08/09/23 09/14/23 09/14/23 acetaminophen 500 mg tablet 1,000 mg PO DIRECTED PRN Pain 09/24/22 10/24/22 Unknown (Tylenol Extra Strength) denosumab 120 mg/1.7 mL (70 mg/mL) 120 mg subcut DIRECTED 09/24/22 10/24/22 Unknown subcutaneous solution (Xgeva) multivitamin with minerals 1 tab PO DAILY 09/24/22 10/24/22 10/12/22 ondansetron 4 mg disintegrating 4 mg PO Q8H PRN NAUSEA/VOMITING 09/24/22 10/24/22 Unknown tablet triamcinolone acetonide 0.1 % 1 applic topical DIRECTED 09/24/22 10/24/22 10/24/22 topical cream amoxicillin 875 mg tablet 875 mg PO BIDM #10 tabs 10/19/22 10/24/22 10/24/22 baclofen 10 mg tablet 10 mg PO TID #0 tabs 10/19/22 10/24/22 10/24/22 loratadine 10 mg tablet (Wal-itin) 10 mg PO DAILY #0 tabs 10/19/22 10/24/22 Unknown oxycodone 10 mg tablet,crush 10 mg PO BID #10 tabs 10/19/22 10/24/22 10/24/22 resistant,extended release 12 hr (OxyContin) prednisone 10 mg tablet 10 mg PO TID #10 tabs 10/19/22 10/24/22 10/24/22 glimepiride 2 mg tablet 2 mg PO QAM 10/24/22 10/24/22 10/24/22 Active Medications Generic Name Dose Route Start Last Admin Trade Name Freq PRN Reason Stop Dose Admin Abiraterone Acetate 2 each 10/26/22 09:00 11/04/22 09:22 Pt's Own Med: Abiraterone Acetate 500mg PO 11/25/22 08:59 2 each DAILY MIESHA Administration Acetaminophen 500 mg 10/24/22 21:00 11/04/22 08:51 Acetaminophen 500 Mg Tab PO 11/23/22 20:59 500 mg TID MIESHA Administration Hydrocodone Bitart/Acetaminophen 1 tab 10/24/22 19:16 11/04/22 08:54 Hydrocodone/Acetaminophen 7.5/325mg Tab PO 11/07/22 19:15 1 tab Q6H PRN Administration Pain Amlodipine Besylate 5 mg 10/28/22 21:00 11/04/22 08:53 Amlodipine Besylate 5 Mg Tab PO 11/27/22 20:59 5 mg BID MIESHA Administration Atorvastatin Calcium 20 mg 10/25/22 09:00 11/04/22 08:52 Atorvastatin 20 Mg Tab PO 11/24/22 08:59 20 mg QAM MIESHA Administration Calcium/Vitamin D 1 tab 10/25/22 09:00 11/04/22 08:53 Calcium 600mg + Vit D 400 Iu Tab PO 11/24/22 08:59 1 tab QAM MIESHA Administration Cyanocobalamin 1,000 mcg 10/28/22 10:50 11/04/22 08:52 Cyanocobalamin (B-12) 500 Mcg Tablet PO 11/27/22 10:49 1,000 mcg QAM MIESHA Administration Gabapentin 100 mg 10/24/22 21:00 10/26/22 09:14 Gabapentin 100 Mg Cap PO 11/23/22 20:59 Not Given TID MIESHA Guaifenesin 600 mg 10/24/22 21:00 11/04/22 08:54 Guaifenesin 600 Mg Tabcr PO 11/23/22 20:59 600 mg Q12 MIESHA Administration Heparin Sodium (Porcine) 5,000 units 10/25/22 22:00 11/04/22 05:05 Heparin Sod 5,000 Unit/0.5 Ml Vial SQ 11/24/22 21:59 Not Given Q8 MIESHA Hydrocortisone Sodium 1 mls @ 4 mls/min 11/04/22 08:00 11/04/22 09:03 Succinate 50 mg/ Syringe IV 11/05/22 08:01 4 mls/min Q8H MIESHA Administration Insulin Aspart 0 units 10/24/22 21:00 11/04/22 11:05 Insulin Aspart Per Unit Charge SC 11/23/22 20:59 Not Given ACHS [facility] Insulin Glargine 15 units 10/25/22 09:00 11/04/22 08:56 Lantus Per Unit Charge SQ 11/24/22 08:59 Not Given BID MIESHA Loratadine 10 mg 10/25/22 09:00 11/04/22 08:53 Loratadine 10 Mg Tab PO 11/24/22 08:59 10 mg DAILY MIESHA Administration Melatonin 3 mg 10/26/22 21:00 11/03/22 21:15 Melatonin 3 Mg Tab PO 11/25/22 20:59 3 mg HS MIESHA Administration Metoprolol Succinate 200 mg 10/25/22 09:00 11/04/22 08:52 Metoprolol Succ 50mg Ext Rel Tab PO 11/24/22 08:59 200 mg DAILY MIESHA Administration Miconazole Nitrate 1 appln 10/28/22 21:00 11/04/22 08:38 Miconazole Nitrate Powder 85 Gm EXT 11/27/22 20:59 Not Given TID MIESHA Multivitamins/Minerals 1 tab 10/25/22 09:00 11/04/22 08:53 Cerovite Adv Formula Tab PO 11/24/22 08:59 1 tab DAILY MIESHA Administration Ondansetron HCl 4 mg 10/24/22 19:16 11/03/22 08:53 Ondansetron Inj 2 Mg/Ml 2 Ml Vial IV 11/23/22 19:15 4 mg Q6H PRN Administration Nausea Pantoprazole Sodium 40 mg 10/24/22 21:00 11/04/22 08:52 Pantoprazole 40 Mg Tab PO 11/23/22 20:59 40 mg BID MIESHA Administration Prednisone 5 mg 11/02/22 09:00 11/04/22 08:54 Prednisone 5 Mg Tab PO 12/02/22 08:59 5 mg DAILY MIESHA Administration Sertraline HCl 100 mg 10/25/22 09:00 11/04/22 08:53 Sertraline Hcl 100 Mg Tablet PO 11/24/22 08:59 100 mg QAM MIESHA Administration Triamcinolone Acetonide 1 appln 10/24/22 21:00 11/04/22 08:55 Triamcinolone Acet 0.1% Cr 15 Gm Tube TOP 11/23/22 20:59 Not Given BID MIESHA NPO Date Last Intake of Fluids: 11/03/22 Time Last Intake of Fluids: 22:00 Last Intake of Fluids Comment: 0800 sip water for meds Date Last Intake of Solids: 11/03/22 Time Last Intake of Solids: 22:00 Past Medical History Medical History Ambulatory dysfunction Androgen-induced osteoporosis Anxiety Atrial fibrillation DX 2019 - FOLLOWS W/ DR. PRAJAPATI Chronic steroid use PROSTATE CANCER COVID-19 09/2022 requiring hospitalization DMII (diabetes mellitus, type 2) Fatigue Hydronephrosis of right kidney Hypercholesterolemia Hyperlipidemia IBS (irritable bowel syndrome) Insomnia Resolved Kidney stones Lumbar spondylosis Osteoarthritis Prostate cancer (11/03/14) Prostate nodule Psychosis Had hx of depression with psychotic episode - resolved Renal insufficiency Sacral lesion Spinal stenosis Thrombocytopenia Ureter injury OBSTRUCTION OF RT URETER 2/2 PROSTATE CA Urinary frequency Urinary incontinence Urge incontinence Urinary retention Resolved Urinary tract infection Resolved Hospitalist note 11/03/22: Assessment & Plan (1) COVID-19: Plan: Patient initially tested + for COVID-19 in mid-September. He was hospitalized at that time and had acute hypoxic respiratory failure - treated with steroids, etc. He continues to test + on PCR testing. Interestingly he had several days of URI symptoms as well as cough/wheezing in the days leading up to this admission. His [employer] respiratory panel was negative for other viral pathogens. Additionally, pt's significant other tested negative for COVID in September multiple times. However, he tested + for COVID THIS PAST WEEK. Either patient has been re-infected or he has had ongoing COVID symptoms since his original index admission 09/24/22. has been on dexamethasone for a week. Discontinued Cont bronchodilators, flutter valve, mucinex, etc. Completed remdesivir 5-day course He is completely asymptomatic currently. No cough, no shortness of breath, no hypoxia. (2) Spinal stenosis: Plan: Severe foraminal and central spinal stenosis on recent MRI l-spine. Seen by Dr Velazco's team during the prior hospitalization. Surgical intervention was offered but patient had initially declined such. He is now willing to undergo surgery. Dr. Velazco plans to operate next Friday11/04/22. In meantime continue tylenol, norco prn, dilaudid prn. . Discontinued Decadron Gentle PT/OT as tolerated. OOB to chair at least once daily, preferably twice daily. In preparation for possible lumbar back surgery, echo was obtained which was fairly unremarkable Vascular surgery consulted to determine if IVC filter should be placed. Venous duplex ultrasound ordered that did not show any new DVT, nor did it show the old DVT. Vascular surgery does not recommend IVC filter placement. Anticoagulation per orthospine postsurgery Past Family History Family History Mother , Passed age 60 of sepsis Gallbladder disease Mental disorder Psychological disorder Father , Passed age 89 of sepsis (infected bladder stones) Congestive heart failure Bladder stones Prostate cancer no treatment needed Brother Heart failure Kidney stones Kidney disease Bladder cancer, Onset Age: 75 Myocardial infarction Grandmother (Paternal) , Passed age 93 of old age Breast cancer, Onset Age: 40 double mastectomy and then did well Sister , Passed age 2 of pneumonia No problems noted. Other Has no children Denies family history of Colon cancer Ovarian cancer Past Surgical History Surgical History History of cataract surgery 2018 - Bilat History of colonoscopy 2011 (due in 2021) History of prostate biopsy 2014 History of tonsillectomy as a child History of tooth extraction in age 19's S/P TURP 2014 Social History Smoking Status: Former smoker tobacco type: cigarettes Do You Dip or Chew Tobacco: No Hx Alcohol Use: No Hx Substance Use: No substance use type: does not use Physical Exam Vital Signs Last Vital Signs Temp 36.6 C 11/04/22 11:09 Pulse 96 H 11/04/22 11:09 Resp 20 11/04/22 11:09 BP 126/76 11/04/22 11:09 Pulse Ox 94 11/04/22 11:09 O2 Del Method Room Air 11/04/22 11:09 Testing Laboratory Results 11/01/22 06:07 11/04/22 07:26 PT 11.2 Seconds (9.0-12.0) 10/24/22 11:55 INR 1.0 (0.9-1.1) 10/24/22 11:55 APTT 27.0 Seconds (21.0-31.0) 10/24/22 11:55 Urine Color Yellow 10/26/22 11:40 Urine Appearance Clear (Clear) 10/26/22 11:40 Urine pH 7.0 (4.5-7.5) 10/26/22 11:40 Ur Specific [place] 1.020 (1.000-1.030) 10/26/22 11:40 Urine Protein Trace (Negative) H 10/26/22 11:40 Urine Glucose (UA) Negative (Negative) 10/26/22 11:40 Urine Ketones Negative (Negative) 10/26/22 11:40 Urine Nitrite Negative (Negative) 10/26/22 11:40 Ur Leukocyte Esterase 2+ (Negative) H 10/26/22 11:40 Urine WBC (Auto) 5-10 /hpf (0-5) H 10/26/22 11:40 Urine RBC (Auto) 0-4 /hpf (0-4) 10/26/22 11:40 U Hyaline Cast (Auto) 1-5 /lpf (0-5) 10/26/22 11:40 U Epithel Cells (Auto) >30 /lpf (0-5) H 10/26/22 11:40 Urine Bacteria (Auto) Negative (Negative) 10/26/22 11:40 Blood Type A Positive 11/04/22 07:23 Antibody Screen NEGATIVE 11/04/22 07:23 11/04/22 11/04/22 11:02 07:52 POC Glucose 97 86 Electrocardiogram Date: 09/24/22 DICTATED BY:Tu Prajapati MD Test Reason : Blood Pressure : / mmHG Vent. Rate : 098 BPM Atrial Rate : 000 BPM P-R Int : 000 ms QRS Dur : 088 ms QT Int : 340 ms P-R-T Axes : 000 018 072 degrees QTc Int : 434 ms Atrial fibrillation Low voltage QRS Nonspecific ST and T wave abnormality Abnormal ECG When compared with ECG of 22-AUG-2016 06:32, Nonspecific T wave abnormality, improved in Inferior leads T wave inversion no longer evident in Anterolateral leads Confirmed by Tu Prajapati ([id number]) on 09/24/2022 4:05:47 PM Chest X-Ray Date: 10/24/22 XR chest 1V portable CLINICAL HISTORY: eval for fluid overload TECHNIQUE: Single frontal radiograph of the chest was obtained. Comparison: Comparison is made to chest radiograph 10/26/2022 FINDINGS: No lines and tubes are seen. Calcified aortic knob is seen. Lungs are underinflated but clear. No evidence of pleural effusion or pneumothorax. IMPRESSION: No acute abnormality and in particular no evidence of pulmonary edema. Echocardiogram Date: 10/29/22 LV systolic function is low normal. EF 50-55% Borderline global hypokinesis of the LV. RV is borderline dilated. RV systolic function is normal. Mild AR Moderate to severe MR LA moderately dilated RV systolic pressure is normal.
--- NOTE | 2022-11-04 11:57 | History & Physical Bridge Note ---
Date of Service November 04, 2022 History & Physical Bridge Note I have examined the patient, reviewed the History & Physical and in the interval since the performance of the History & Physical I have noted the following changes of clinical significance: no changes noted Lumbar decompression and fusion L3-S1
[2022-11-04] MEDS ORDERED: ceFAZolin 3000MG/72.5 ML BAG IV ONE (12:06)
[2022-11-04] MEDS ORDERED: ALBUMIN HUMAN 5% 12.5 GM/250 ML VIAL IV ONE ×2 (12:28→16:36)
[2022-11-04] MEDS ORDERED: VASOPRESSIN 20 UNIT/ML VIAL ONE (12:48)
[2022-11-04] MEDS ORDERED: FLOSEAL HEMOSTATIC MATRIX 10ML TOP ONE (13:00)
[2022-11-04] MEDS ORDERED: SUGAMMADEX SODIUM 200 MG/2 ML VIAL IV ONE (13:41)
--- NOTE | 2022-11-04 14:49 | Operative Report ---
Post Operative Report Pre & Post Diagnosis Operation Date: 11/04/22 11:55 Pre-Op Diagnosis: Neurogenic claudication due to lumbar spinal stenosis Post-Op Diagnosis: Neurogenic claudication due to lumbar spinal stenosis I identified the patient and participated in the time-out.: Yes Procedure Operation Date: 11/04/22 11:55 Actual Procedures #1 lumbar decompression with bilateral medial facetectomies and foraminotomies L2-L3, L3-L4, L4-5 L5-S1. #2 posterior spinal fusion L3-S1. #3 placement posterior segmental instrumentation L3-S1. #4 interbody fusion L3-L4, L4-5 and L5-S1. #5 placement spiral 14 x 26 mm cage at L3-L4, 14 x 26 mm cage at L4-5 and 13 x 26 mm cage x2 at L5-S1. #6 placement locally harvested morselized autograft and posterior gutters. #7 placement of I factor in the interbody space and infuse collagen sponge, mass graft in the posterior lateral gutters. Surgeon Benedict Velazco, DO [employer] Executive Sheryl Cabrera Estimated Blood Loss 250 Findings See Below Patient is 5 foot 6 weighing over 107 kg with a BMI in excess of 38. The patient's body habitus did contribute to significant technical difficulty requiring her deeper retractors longer instruments in order to perform this proc edure. This at least 50% increased operative time. Specimens None Indications This is a 77-year-old male who presents above-mentioned diagnosis after failing since course of nonoperative care is here for surgical invention. Description of Procedure Patient was met with identified informed consent obtained. Patient was then taken to the operative suite underwent ablation placed in a prone position on the Iraan table top John frame. All bony promises well-padded eyes inspected to ensure no external precipice spine. This point the lumbar spine was prepped and draped in a sterile fashion. Sharp dissection with the assistance of Bovie cautery to form down to and exposing the lamina transverse processes of L3 L4-5 and sacral ala bilaterally. From caudal to cephalad fashion complete laminectomy of L5 L4 L3 and partial laminectomy of L2 was performed including bilateral medial facetectomies and foraminotomies addressing severe spinal stenosis. Pedicle screws were then placed in L3-L4-L5 and S1 levels bilaterally with assistance of fluoroscopy and the properly sized theodore placed. By way of a transforaminal approach on the left the discectomy was performed at L5-S1 endplates guarded to subcortical mean bone and a 13 x 26 mm prior cage with I factor tapped position. Then proceeded to the right side of L5-S1 completed the discectomy curetted the remaining disc to subcortical mean bone and placed a second 13 x 26 mm Spira cage with I factor into position. Then proceeded to the L4-[address] of a transforaminal approach on the left complete discectomy performed endplates guarded to subcortical mean bone and a 14 x 26 mm Spira cage with I factor tapped in position. Lastly approached L3-L4 and again by way of a transforaminal approach on the left we discectomy performed endplates guarded to subcortical bleeding bone and a 14 x 26 mm Spira cage with I factor tapped position. The rods were then locked in final position bilaterally. The transverse processes of L2-3 L4-L5 and sacral ala burred to subcortical bone. Infuse collagen sponge combined with master graft and locally harvested morselized autograft placed in the posterior gutters. 15 round MATTHEW drain inserted. The incision was then closed with 1 V icryl fascia 2-0 Vicryl subcutaneously and 4 Monocryl for final skin closure. Steri-Strips sterile dressings placed. Patient waken taken to PACU stable condition. Please note spinal cord monitoring easily utilized throughout the procedure no changes noted. Lastly Sheryl Cabrera was present that the entire surgeon with the patient positioning complex portions of the surgery and final skin closure. I attest to the content of the Intraoperative Record and any orders documented therein. Any exceptions are noted below.
--- NOTE | 2022-11-04 15:04 | Fluoroscopy Report ---
FL lumbar spine 2-3V CLINICAL HISTORY: L3-S1 DECOMPRESSION AND FUSION COMPARISON STUDY: Lumbar spine MRI October 13, 2022. FLUOROSCOPY TIME: 27 seconds. Ka, r: 22.00 mGy FLUOROSCOPIC IMAGES: 2 FINDINGS: Fluoroscopy was provided during L3-L4, L4-L5 and L5-S1 discectomies with interbody spacer p lacement. Posterior decompression is noted with bilateral pedicle screws at the L3, L4, L5 and S1 lev els. There are interconnecting rods. Hardware is intact. IMPRESSION: Fluoroscopy provided during L3-S1 decompression and fusion. ACT 112: Negative or not required by law. Electronically signed by: Americo Woodard M.D. 11/04/2022 3:03 PM
[2022-11-04] MEDS ORDERED: PHENYLEPHRINE 100MCG/ML 5ML SYR ONE (15:21)
[2022-11-04] MEDS: PHENYLEPHRINE 100MCG/ML 5ML SYR IV PRN ×4 (15:22→16:12)
[2022-11-04] MEDS: ePHEDrine sulfate 50 MG/ML AMP IV PRN ×2 (16:04→16:12)
[2022-11-04] MEDS ORDERED: ALBUMIN 5% 250 ML IV ONE (16:40)
--- NOTE | 2022-11-04 17:47 | Hospitalist Progress Note ---
Date of Service November 04, 2022 Assessment & Plan (1) Spinal stenosis: Plan: Severe foraminal and central spinal stenosis on recent MRI l-spine. Seen by Dr Velazco's team during the prior hospitalization. Surgical intervention was offered but patient had initially declined such. Now s/p lumbar decompression, fusion on 11/04/22. In preparation for possible lumbar back surgery, echo was obtained which was fairly unremarkable Vascular surgery consulted to determine if IVC filter should be placed. Venous duplex ultrasound ordered that did not show any new DVT, and showed lef popliteal DVT, nonocclusive. Vascular surgery does not recommend IVC filter placement. -pain control, bowel regimen as per Ortho -PT/OT -follow post op CBC, BMP (2) HTN (hypertension): Plan: Was having elevated BPs and had amlodipine increased to 5mg BID. Now BPs low intra-op and post-op--> likely due to adrenal insufficiency and some blood loss (250mL) -HOLD amlodipine, and continue to hold lisinopril -Continue metoprolol home dose for rate control of Afib -continue stress dose steroids with HC 50mg IV q8h x 4 doses and reassess tomorrow to see if needs to be extended (3) COVID-19: Plan: Patient initially tested + for COVID-19 in mid-September. He was hospitalized at that time and had acute hypoxic respiratory failure - treated with steroids, etc. He continues to test + on PCR testing. Interestingly he had several days of URI symptoms as well as cough/wheezing in the days leading up to this admission. His [employer] respiratory panel was negative for other viral pathogens. Additionally, pt's significant other tested negative for COVID in September multiple times. However, he tested + for COVID THIS PAST WEEK. Either patient has been re-infected or he has had ongoing COVID symptoms since his original index admission 09/24/22. SYmptoms now resolved-Was on dexamethasone for a week, completed remdesivir 5- day course -remove from isolation precautions (4) Visual hallucinations: Plan: delirium from his COVID infection? toxic from gabapentin? gabapentin was stopped and symptoms resolved recent MRI brain was normal (5) Chronic steroid use: Plan: continue Prednisone 5mg daily for prostate cancer with bony mets. COntinue stress dose of hydrocortisone IV post op (6) Acute deep vein thrombosis (DVT) of distal vein of left lower extremity: Plan: 10/12/22 - doppler of LLE showed "Nonocclusive thrombus in the left popliteal vein as well as one of 2 peroneal veins." Due to low platelets, h/o hematuria, and possible chronic nature of the DVT a decision was made not to anticoagulate at that time. RLE doppler study negative for DVT this admission. Vascular surgery repeated lower extremity duplex. With L popliteal DVT considered old. No IVC filter placement planned even though multiple VTE risk factors - COVID infection, significant immobility, upcoming surgery, etc. Plan to do DVT prophylaxis per orthospine postsurgically (7) Weakness: Plan: multifactorial - recent or recurrent COVID-19 infection; deconditioning; toxic effects from narcotics/baclofen; known lumbar foraminal/spinal stenosis; adrenal crisis; other processes. MRI Brain neg for stroke. Oxycontine/oxycodone and baclofen stopped. cont PT, OT as tolerated. OOB to chair at least daily. (8) Thrombocytopenia: Plan: Patient has been thrombocytopenic since his COVID dx in mid-September. Now resolved and was from COVID peripheral smear unrevealing. immature platelet fraction returned normal making ITP unlikely. B12 low-normal; replaced. folate wnl. platelets HAVE improved while here with steroids. (9) Anxiety: Plan: Cont sertraline (10) Prostate cancer: Plan: Stage 4 with bony mets. On Zytiga and prednisone chronically. Follows with Dr Olivia Liriano - [facility]. MRI Brain neg for cva or metastatic disease (11) Depression: Plan: Continue sertraline (12) DMII (diabetes mellitus, type 2): Plan: a1c 7.7% 09/24/22. cont lantus cont novolog controlled (13) Atrial fibrillation: Plan: Permanent a.fib Rates controlled Cont metoprolol. He is NOT on chronic anticoagulation at baseline (records suggest due to gross hematuria??) (14) Hypercholesterolemia: Plan: Cont lipitor. (15) Balanitis: Plan: continue miconazole powder TID urethral meatus area c/w sarita (16) Diarrhea: Plan: likely from COVID infection C. difficile negative resolved Plan Dispo-continued tsay on PCU for hypotension, post op from back surgery PT/OT consults, may need rehab Admission and Anticipated Discharge Date Admission Date: October 24, 2022 Subjective Pt just returned from his back surgery and had some intraop and post-op issues with hypotension. He was given IV albumin, Danilo-synephrine briefly and is about to get another dose of IV hydrocortisone. He denies any issues and is working on his computer when I saw him. No pain in back or legs. Tele with Afib, rates 70-80s Physical Exam Constitutional: WD/WN, vitals as above Neck: trachea midline, no thyromegaly Respiratory: normal respiratory effort, lungs clear to auscultation Cardiovascular: Rate/Rhythm: regular rate and + irregularly irregular Heart Sounds: no murmur Extremities: + edema (1+ ankle edema bilat) Chest (Breasts): Chest: normal inspection of chest Gastrointestinal (Abdomen): normal bowel sounds, soft, nontender, no hepatosplenomegaly Musculoskeletal: Extremities: extremities normal to inspection; no cyanosis and no clubbing Skin: no rashes, warm and dry Neurologic: moves all extremities and awake; no focal motor deficits Psychiatric: A+Ox3, euthymic affect Results & Data Results & Data Vital Signs (Past 12 Hours) Vital Signs Temp Pulse Pulse Resp BP BP Pulse Ox 11/04/22 17:30 36.5 C 98 H 18 90/61 L 95 11/04/22 16:50 36.5 C 88 15 86/66 L 99 11/04/22 17:15 91 H 19 91/60 L 98 11/04/22 17:00 88 21 94/57 L 99 11/04/22 16:40 93 H 16 86/50 L 99 11/04/22 16:30 97 H 17 82/49 L 97 11/04/22 16:20 103 H 16 90/59 L 98 11/04/22 16:10 96 H 12 82/66 L 100 11/04/22 16:00 84 19 88/54 L 100 11/04/22 15:50 87 13 102/65 100 11/04/22 15:40 87 20 94/65 L 99 11/04/22 15:30 86 18 88/53 L 95 11/04/22 15:20 84 15 79/58 L 98 11/04/22 15:10 85 12 80/53 L 98 11/04/22 15:03 36.0 C L 82 12 84/58 L 98 11/04/22 11:09 36.6 C 96 H 20 126/76 94 11/04/22 10:58 36.5 C 96 H 19 107/75 93 11/04/22 07:53 36.7 C 89 19 128/85 96 O2 Del Method O2 Flow Rate 11/04/22 17:30 Room Air 11/04/22 16:50 Nasal Cannula 2 11/04/22 17:15 Nasal Cannula 2 11/04/22 17:00 Nasal Cannula 2 11/04/22 16:40 Nasal Cannula 2 11/04/22 16:30 Nasal Cannula 2 11/04/22 16:20 Nasal Cannula 2 11/04/22 16:10 Nasal Cannula 2 11/04/22 16:00 Nasal Cannula 2 11/04/22 15:50 Nasal Cannula 2 11/04/22 15:40 Nasal Cannula 2 11/04/22 15:30 Room Air 11/04/22 15:20 Oxymask 10 11/04/22 15:10 Oxymask 10 11/04/22 15:03 Oxymask 10 11/04/22 11:09 Room Air 11/04/22 10:58 Room Air 11/04/22 07:53 Room Air Laboratory Results BMP reviewed PG Care Time/CCT Total # of Minutes Spent Total Time Spent with Patient: Total time spent is greater than 50% in coordination of care (as documented) at patient's floor/unit and/or counseling patient: Coding Level of Care Code 00194 SUB INP/OBS CARE 3/50MIN Diagnoses Spinal stenosis M48.00 Spinal region: unspecified HTN (hypertension) I10 COVID-19 U07.1 Visual hallucinations R44.1 Chronic steroid use Acute deep vein thrombosis (DVT) of distal vein of left lower extremity I82.4Z2 Weakness R53.1 Thrombocytopenia D69.6 Anxiety F41.9 Prostate cancer C61 Depression F32.9 DMII (diabetes mellitus, type 2) E11.9 Atrial fibrillation I48.91 Hypercholesterolemia E78.00 Balanitis N48.1 Diarrhea R19.7 (1) Spinal stenosis Spinal region: unspecified Qualified Code(s): M48.00 - Spinal stenosis, site unspecified
--- NOTE | 2022-11-04 17:48 | Anesthesiology Progress Note ---
Date of Service November 04, 2022 Anesthesia Post Procedure Vital Signs Vital Signs: Temp Pulse Pulse Pulse Resp BP BP 11/04/22 17:30 36.5 C 98 H 18 90/61 L 11/04/22 16:50 36.5 C 88 15 86/66 L 11/04/22 17:15 91 H 19 91/60 L 11/04/22 17:00 88 21 94/57 L 11/04/22 16:40 93 H 16 86/50 L 11/04/22 16:30 97 H 17 82/49 L 11/04/22 16:20 103 H 16 90/59 L 11/04/22 16:10 96 H 12 82/66 L 11/04/22 16:00 84 19 88/54 L 11/04/22 15:50 87 13 102/65 11/04/22 15:40 87 20 94/65 L 11/04/22 15:30 86 18 88/53 L 11/04/22 15:20 84 15 79/58 L 11/04/22 15:10 85 12 80/53 L 11/04/22 15:03 36.0 C L 82 12 84/58 L 11/04/22 11:09 36.6 C 96 H 20 126/76 11/04/22 10:58 36.5 C 96 H 19 107/75 11/04/22 07:53 36.7 C 89 19 128/85 11/04/22 03:08 36.7 C 90 17 121/86 11/03/22 23:00 36.6 C 84 16 102/67 11/03/22 22:47 88 11/03/22 20:20 11/03/22 19:30 36.9 C 93 H 17 95/64 L Pulse Ox O2 Del Method O2 Flow Rate 11/04/22 17:30 95 Room Air 11/04/22 16:50 99 Nasal Cannula 2 11/04/22 17:15 98 Nasal Cannula 2 11/04/22 17:00 99 Nasal Cannula 2 11/04/22 16:40 99 Nasal Cannula 2 11/04/22 16:30 97 Nasal Cannula 2 11/04/22 16:20 98 Nasal Cannula 2 11/04/22 16:10 100 Nasal Cannula 2 11/04/22 16:00 100 Nasal Cannula 2 11/04/22 15:50 100 Nasal Cannula 2 11/04/22 15:40 99 Nasal Cannula 2 11/04/22 15:30 95 Room Air 11/04/22 15:20 98 Oxymask 10 11/04/22 15:10 98 Oxymask 10 11/04/22 15:03 98 Oxymask 10 11/04/22 11:09 94 Room Air 11/04/22 10:58 93 Room Air 11/04/22 07:53 96 Room Air 11/04/22 03:08 95 Room Air 11/03/22 23:00 94 Room Air 11/03/22 22:47 11/03/22 20:20 Room Air 11/03/22 19:30 96 Room Air Pain Intensity Left Leg: Pain Intensity: 2 Right Upper Leg: Pain Intensity: 3 Transfer of Care Handoff Completed per policy Notes Mental Status: alert / awake / arousable Patient Amnestic to Procedure: Yes Nausea / Vomiting: adequately controlled Pain: adequately controlled Airway Patency, RR, SpO2: stable & adequate BP & HR: stable & adequate Hydration State: stable & adequate Anesthetic Complications: no major complications apparent and Pt Satisfied with anesthetic care
[2022-11-04] MEDS: MELATONIN 3 MG TAB PO SCH (21:23)
[2022-11-05] MEDS: HEPARIN SOD 5,000 UNIT/0.5 ML VIAL SQ SCH ×3 (06:34→20:55)
[2022-11-05 07:21] LABS: Basophils # (auto) 0.05 K/uL (0.00-0.20); Basophils % (auto) 0.4 %; Eosinophils # (auto) 0.01 K/uL (0.00-0.50); Eosinophils % (auto) 0.1 %; Hemoglobin 12.6 g/dl (14.0-18.0); Immature Granulocytes # (auto) 0.55 K/uL (0.01-0.20); Immature Granulocytes % (auto) 4.4 %; Lymphocytes # (auto) 0.76 K/uL (1.20-3.40); Lymphocytes % (auto) 6.1 %; Mean Corpuscular Hgb Conc 33.2 g/dL (32.0-36.0); Mean Corpuscular Volume 93.6 fL (80.0-100.0); Mean Platelet Volume 10.4 fL (9.4-12.4); Monocytes # (auto) 0.68 K/uL (0.11-0.59); Monocytes % (auto) 5.4 %; Neutrophils % (auto) 83.6 %; Platelet Count 148 K/uL (130-400); RDW Coefficient of Variation 13.8 % (11.5-14.5); RDW Standard Deviation 47.4 fL (36.4-46.3); Red Blood Count 4.06 M/uL (4.70-6.10); White Blood Count 12.55 K/ul (4.8-10.8)
[2022-11-05 07:43] LABS: BUN Creatinine Ratio 22.5 (10-20); Creatinine Clr Calc Pharmacy 79.7 ml/min; Est GFR (African American) 94.9 ml/min; Est GFR (Non-African American) 81.9 ml/min; Potassium 4.8 mmol/L (3.5-5.1)
[2022-11-05] MEDS: INSULIN ASPART PER UNIT CHARGE SC SCH ×4 (08:48→20:54)
[2022-11-05] MEDS: LANTUS PER UNIT CHARGE SQ SCH ×2 (08:48→20:54)
[2022-11-05] MEDS: HYDROCORTISONE SOD 50 MG in SYRINGE 0 ML IV SCH (08:49)
[2022-11-05] MEDS: ABIRATERONE ACETATE 500 MG PO SCH (08:49)
[2022-11-05] MEDS: predniSONE 5 MG TAB PO SCH (08:51)
[2022-11-05] MEDS: CEROVITE ADV FORMULA TAB PO SCH (08:51)
[2022-11-05] MEDS: SERTRALINE HCL 100 MG TABLET PO SCH (08:51)
[2022-11-05] MEDS: PANTOprazole 40 MG TAB PO SCH ×2 (08:51→20:56)
[2022-11-05] MEDS: LORATADINE 10 MG TAB PO SCH (08:52)
[2022-11-05] MEDS: ATORVASTATIN 20 MG TAB PO SCH (08:52)
[2022-11-05] MEDS: METOPROLOL SUCC 50MG EXT REL TAB PO SCH (08:52)
[2022-11-05] MEDS: guaiFENesin 600 MG TABCR PO SCH ×2 (08:52→20:56)
[2022-11-05] MEDS: CYANOCOBALAMIN (B-12) 500 MCG TABLET PO SCH (08:52)
[2022-11-05] MEDS: CALCIUM 600MG + VIT D 400 IU TAB PO SCH (08:52)
[2022-11-05] MEDS: MICONAZOLE NITRATE POWDER 85 GM EXT SCH ×3 (08:53→20:57)
[2022-11-05] MEDS: TRIAMCINOLONE ACET 0.1% CR 15 GM TUBE TOP SCH ×2 (08:53→20:56)
[2022-11-05] MEDS: ACETAMINOPHEN 500 MG TAB PO SCH ×3 (08:56→20:53)
[2022-11-05] MEDS: HYDROCORTISONE SOD 100 MG in SYRINGE 0 ML IV SCH ×2 (11:17→18:44)
--- NOTE | 2022-11-05 12:07 | Hospitalist Progress Note ---
Date of Service November 05, 2022 Assessment & Plan (1) Spinal stenosis: Plan: Severe foraminal and central spinal stenosis on recent MRI l-spine. Seen by Dr Velazco's team during the prior hospitalization. Surgical intervention was offered but patient had initially declined such. Now s/p lumbar decompression, fusion on 11/04/22. In preparation for possible lumbar back surgery, echo was obtained which showed mod-severe MR/TR Vascular surgery consulted to determine if IVC filter should be placed. Venous duplex ultrasound ordered that did not show any new DVT, and showed left popliteal DVT, nonocclusive. Vascular surgery does not recommend IVC filter placement. Continues with some intermittent hypotension from adrenal insufficiency, acute blood loss anemia hgb down to 12 from 15 -pain control, bowel regimen as per Ortho -PT/OT -follow CBC, BMP -stress dose steroids (2) HTN (hypertension): Plan: Was having elevated BPs and had amlodipine increased to 5mg BID. Now BPs low intra-op and post-op--> likely due to adrenal insufficiency and some blood loss (250mL) -continue to HOLD amlodipine and lisinopril -Continue metoprolol home dose for rate control of Afib -increase stress dose steroids to HC 100mg IV q8h (3) COVID-19: Plan: Patient initially tested + for COVID-19 in mid-September. He was hospitalized at that time and had acute hypoxic respiratory failure - treated with steroids, etc. He continues to test + on PCR testing. Interestingly he had several days of URI symptoms as well as cough/wheezing in the days leading up to this admission. His [employer] respiratory panel was negative for other viral pathogens. Additionally, pt's significant other tested negative for COVID in September multiple times. However, he tested + for COVID THIS PAST WEEK. Either patient has been re-infected or he has had ongoing COVID symptoms since his original index admission 09/24/22. SYmptoms now resolved-Was on dexamethasone for a week, completed remdesivir 5- day course -remove from isolation precautions (4) Visual hallucinations: Plan: delirium from his COVID infection? toxic from gabapentin? gabapentin was stopped and symptoms resolved recent MRI brain was normal (5) Chronic steroid use: Plan: continue Prednisone 5mg daily for prostate cancer with bony mets. Continue stress dose of hydrocortisone IV post op (6) Acute deep vein thrombosis (DVT) of distal vein of left lower extremity: Plan: 10/12/22 - doppler of LLE showed "Nonocclusive thrombus in the left popliteal vein as well as one of 2 peroneal veins." Due to low platelets, h/o hematuria, and possible chronic nature of the DVT a decision was made not to anticoagulate at that time. RLE doppler study negative for DVT this admission. Vascular surgery repeated lower extremity duplex. With L popliteal DVT considered old. No IVC filter placement planned even though multiple VTE risk factors - COVID infection, significant immobility, upcoming surgery, etc. Plan to do DVT prophylaxis per orthospine postsurgically (7) Weakness: Plan: multifactorial - recent or recurrent COVID-19 infection; deconditioning; toxic effects from narcotics/baclofen; known lumbar foraminal/spinal stenosis; adrenal crisis; other processes. MRI Brain neg for stroke. Oxycontine/oxycodone and baclofen stopped. cont PT, OT as tolerated (8) Thrombocytopenia: Plan: Patient has been thrombocytopenic since his COVID dx in mid-September. Now resolved and was from COVID peripheral smear unrevealing. immature platelet fraction returned normal making ITP unlikely. B12 low-normal; replaced. folate wnl. platelets HAVE improved while here with steroids. (9) Anxiety: Plan: Cont sertraline (10) Prostate cancer: Plan: Stage 4 with bony mets. On Zytiga and prednisone chronically. Follows with Dr Olivia Liriano - [facility]. MRI Brain neg for cva or metastatic disease (11) Depression: Plan: Continue sertraline (12) DMII (diabetes mellitus, type 2): Plan: a1c 7.7% 09/24/22. cont lantus cont novolog controlled (13) Atrial fibrillation: Plan: Permanent a.fib Rates controlled Cont metoprolol. He is NOT on chronic anticoagulation at baseline (records suggest due to gross hematuria??) (14) Hypercholesterolemia: Plan: Cont lipitor. (15) Balanitis: Plan: continue miconazole powder TID urethral meatus area c/w sarita (16) Diarrhea: Plan: likely from COVID infection C. difficile negative resolved Plan Dispo-continued stay on PCU for hypotension, post op from back surgery PT/OT consults, may need rehab Admission and Anticipated Discharge Date Admission Date: October 24, 2022 Subjective Has some soreness in the lower back at incision site, otherwise feels fine. No CP, SOB, lightheadedness. He had low BPs this AM and could not work with PT. Tele with Afib, rates 70-90s Physical Exam Constitutional: WD/WN, vitals as above Neck: trachea midline, no thyromegaly Respiratory: normal respiratory effort, lungs clear to auscultation Cardiovascular: Rate/Rhythm: regular rate and + irregularly irregular Heart Sounds: no murmur Extremities: + edema (1+ ankle edema bilat) Chest (Breasts): Chest: normal inspection of chest Gastrointestinal (Abdomen): normal bowel sounds, soft, nontender, no hepatosplenomegaly Musculoskeletal: Extremities: extremities normal to inspection; no cyanosis and no clubbing Skin: no rashes, warm and dry Neurologic: moves all extremities and awake; no focal motor deficits Psychiatric: A+Ox3, euthymic affect Results & Data Results & Data Vital Signs (Past 12 Hours) Vital Signs Temp Pulse Pulse Resp BP Pulse Ox O2 Del Method 11/05/22 11:03 36.6 C 97 H 20 106/69 93 Room Air 11/05/22 07:56 36.5 C 97 H 22 129/89 98 Nasal Cannula 11/05/22 07:14 93 H 11/05/22 04:18 36.7 C 82 14 114/82 95 Room Air O2 Flow Rate 11/05/22 11:03 11/05/22 07:56 2 11/05/22 07:14 11/05/22 04:18 Laboratory Results CBC,BMP reviewed PG Care Time/CCT Total # of Minutes Spent Total Time Spent with Patient: Total time spent is greater than 50% in coordination of care (as documented) at patient's floor/unit and/or counseling patient: Coding Level of Care Code 84810 SUB INP/OBS CARE 2/35MIN Diagnoses Spinal stenosis M48.00 Spinal region: unspecified HTN (hypertension) I10 COVID-19 U07.1 Visual hallucinations R44.1 Chronic steroid use Acute deep vein thrombosis (DVT) of distal vein of left lower extremity I82.4Z2 Weakness R53.1 Thrombocytopenia D69.6 Anxiety F41.9 Prostate cancer C61 Depression F32.9 DMII (diabetes mellitus, type 2) E11.9 Atrial fibrillation I48.91 Hypercholesterolemia E78.00 Balanitis N48.1 Diarrhea R19.7 (1) Spinal stenosis Spinal region: unspecified Qualified Code(s): M48.00 - Spinal stenosis, site unspecified
--- NOTE | 2022-11-05 12:26 | Orthopedic Progress Note ---
Date of Service November 05, 2022 Assessment & Plan (1) Neurogenic claudication due to lumbar spinal stenosis: Plan: At this time initiate occupational therapy and physical therapy and anticipate rehab when medically stable. Admission and Anticipated Discharge Date Admission Date: October 24, 2022 Subjective Patient is comfortable in bed. States his leg pain is improved. Back pain controlled. Physical Exam Physical Exam: Patient is good strength testing. Sensory intact. Results & Data Vital Signs (Past 12 Hours) Vital Signs Temp Pulse Pulse Resp BP Pulse Ox O2 Del Method 11/05/22 11:03 36.6 C 97 H 20 106/69 93 Room Air 11/05/22 07:56 36.5 C 97 H 22 129/89 98 Nasal Cannula 11/05/22 07:14 93 H 11/05/22 04:18 36.7 C 82 14 114/82 95 Room Air O2 Flow Rate 11/05/22 11:03 11/05/22 07:56 2 11/05/22 07:14 11/05/22 04:18 Queries Orthopedic Spine Obesity: Yes
[2022-11-05] MEDS: HYDROCODONE/ACETAMINOPHEN 7.5/325MG TAB PO PRN ×2 (14:18→23:10)
[2022-11-05] MEDS: MELATONIN 3 MG TAB PO SCH (20:56)
[2022-11-06] MEDS: HYDROCORTISONE SOD 100 MG in SYRINGE 0 ML IV SCH (03:31)
[2022-11-06] MEDS: HEPARIN SOD 5,000 UNIT/0.5 ML VIAL SQ SCH ×3 (06:24→20:51)
[2022-11-06] MEDS: HYDROCODONE/ACETAMINOPHEN 7.5/325MG TAB PO PRN (06:26)
[2022-11-06 06:55] LABS: Basophils # (auto) 0.03 K/uL (0.00-0.20); Basophils % (auto) 0.2 %; Hematocrit (blood only) 37.4 % (42.0-52.0); Hemoglobin 12.5 g/dl (14.0-18.0); Immature Granulocytes % (auto) 4.9 %; Lymphocytes % (auto) 6.6 %; Mean Corpuscular Hemoglobin 31.3 pg (25.0-34.0); Mean Corpuscular Hgb Conc 33.4 g/dL (32.0-36.0); Mean Corpuscular Volume 93.7 fL (80.0-100.0); Mean Platelet Volume 9.9 fL (9.4-12.4); Monocytes # (auto) 0.65 K/uL (0.11-0.59); Monocytes % (auto) 5.3 %; Neutrophils # (auto) 10.13 K/uL (1.40-6.50); Platelet Count 147 K/uL (130-400); RDW Coefficient of Variation 13.8 % (11.5-14.5); Red Blood Count 3.99 M/uL (4.70-6.10); White Blood Count 12.21 K/ul (4.8-10.8)
[2022-11-06 07:13] LABS: BUN Creatinine Ratio 22.3 (10-20); Calcium 8.1 mg/dl (8.6-10.3); Creatinine Clr Calc Pharmacy 75.2 ml/min; Est GFR (African American) 89.6 ml/min; Est GFR (Non-African American) 77.3 ml/min; Magnesium 1.8 mg/dl (1.7-2.4); Potassium 4.3 mmol/L (3.5-5.1)
[2022-11-06] MEDS: INSULIN ASPART PER UNIT CHARGE SC SCH ×4 (08:06→20:49)
[2022-11-06] MEDS: LANTUS PER UNIT CHARGE SQ SCH ×2 (08:07→20:49)
[2022-11-06] MEDS: ACETAMINOPHEN 500 MG TAB PO SCH ×3 (08:08→20:50)
[2022-11-06] MEDS: ABIRATERONE ACETATE 500 MG PO SCH (08:08)
[2022-11-06] MEDS: CYANOCOBALAMIN (B-12) 500 MCG TABLET PO SCH (08:10)
[2022-11-06] MEDS: predniSONE 5 MG TAB PO SCH ×2 (08:10→20:53)
[2022-11-06] MEDS: guaiFENesin 600 MG TABCR PO SCH (08:10)
[2022-11-06] MEDS: TRIAMCINOLONE ACET 0.1% CR 15 GM TUBE TOP SCH ×2 (08:10→20:52)
[2022-11-06] MEDS: PANTOprazole 40 MG TAB PO SCH ×2 (08:10→20:52)
[2022-11-06] MEDS: SERTRALINE HCL 100 MG TABLET PO SCH (08:10)
[2022-11-06] MEDS: CEROVITE ADV FORMULA TAB PO SCH (08:10)
[2022-11-06] MEDS: METOPROLOL SUCC 50MG EXT REL TAB PO SCH (08:10)
[2022-11-06] MEDS: LORATADINE 10 MG TAB PO SCH (08:10)
[2022-11-06] MEDS: ATORVASTATIN 20 MG TAB PO SCH (08:11)
[2022-11-06] MEDS: CALCIUM 600MG + VIT D 400 IU TAB PO SCH (08:11)
[2022-11-06] MEDS: MICONAZOLE NITRATE POWDER 85 GM EXT SCH ×3 (08:17→20:50)
[2022-11-06] MEDS ORDERED: MAGNESIUM SULFATE / D5W 1 GM/100 ML BAG IV ONE (08:46)
--- NOTE | 2022-11-06 11:08 | Hospitalist Progress Note ---
Date of Service November 06, 2022 Assessment & Plan (1) Spinal stenosis: Plan: Severe foraminal and central spinal stenosis on recent MRI l-spine. Seen by Dr Velazco's team during the prior hospitalization. Surgical intervention was offered but patient had initially declined such. Now s/p lumbar decompression, fusion on 11/04/22. In preparation for possible lumbar back surgery, echo was obtained which showed mod-severe MR/TR Vascular surgery consulted to determine if IVC filter should be placed. Venous duplex ultrasound ordered that did not show any new DVT, and showed left popliteal DVT, nonocclusive. Vascular surgery does not recommend IVC filter placement. Continues with some intermittent hypotension from adrenal insufficiency, acute blood loss anemia hgb down to 12 from 15 but stable from yesterday -pain control, bowel regimen as per Ortho -PT/OT-beeds rehab -follow CBC, BMP -stress dose steroids as below -remove Agnieszka (2) HTN (hypertension): Plan: Was having elevated BPs and had amlodipine increased to 5mg BID. Then BPs low intra-op and post-op--> likely due to adrenal insufficiency and some blood loss (250mL) BPs now much improved with increased IV hydrocortisone dose Also, he has been getting the wrong dose of prednisone (home dose 5mg TWICE a day) -continue to HOLD amlodipine and lisinopril -Continue metoprolol home dose for rate control of Afib -taper stress dose steroids to HC 75mg IV q8h today, then 50mg IV q8 tomorrow, then stop -increase prednisone to home dose of 5mg po bid (3) COVID-19: Plan: Patient initially tested + for COVID-19 in mid-September. He was hospitalized at that time and had acute hypoxic respiratory failure - treated with steroids, etc. He continues to test + on PCR testing. Interestingly he had several days of URI symptoms as well as cough/wheezing in the days leading up to this admission. His [employer] respiratory panel was negative for other viral pathogens. Additionally, pt's significant other tested negative for COVID in September multiple times. However, he tested + for COVID THIS PAST WEEK. Either patient has been re-infected or he has had ongoing COVID symptoms since his original index admission 09/24/22. Symptoms now resolved-Was on dexamethasone for a week, completed remdesivir 5- day course -removed from isolation precautions (4) Visual hallucinations: Plan: delirium from his COVID infection? toxic from gabapentin? gabapentin was stopped and symptoms resolved recent MRI brain was normal (5) Chronic steroid use: Plan: on Prednisone 5mg bid for prostate cancer with bony mets. Continue stress dose of hydrocortisone IV post op (6) Acute deep vein thrombosis (DVT) of distal vein of left lower extremity: Plan: 10/12/22 - doppler of LLE showed "Nonocclusive thrombus in the left popliteal vein as well as one of 2 peroneal veins." Due to low platelets, h/o hematuria, and possible chronic nature of the DVT a decision was made not to anticoagulate at that time. RLE doppler study negative for DVT this admission. Vascular surgery repeated lower extremity duplex. With L popliteal DVT considered old. No IVC filter placement planned even though multiple VTE risk factors - COVID infection, significant immobility, upcoming surgery, etc. Plan to do DVT prophylaxis per ortho spine postsurgically-on SQ heparin (7) Weakness: Plan: multifactorial - recent or recurrent COVID-19 infection; deconditioning; toxic effects from narcotics/baclofen; known lumbar foraminal/spinal stenosis; adrenal crisis; other processes. MRI Brain neg for stroke. Oxycontin/oxycodone and baclofen stopped. cont PT, OT-needs rehab (8) Thrombocytopenia: Plan: Patient has been thrombocytopenic since his COVID dx in mid-September. Now resolved and was from COVID peripheral smear unrevealing immature platelet fraction returned normal making ITP unlikely. B12 low-normal; replaced. folate wnl. platelets HAVE improved while here with steroids. (9) Anxiety: Plan: Dep/anxiety Cont sertraline (10) Prostate cancer: Plan: Stage 4 with bony mets. On Zytiga and prednisone chronically. Follows with Dr Olivia Liriano - [facility]. MRI Brain neg for cva or metastatic disease (11) DMII (diabetes mellitus, type 2): Plan: a1c 7.7% 09/24/22. cont lantus cont novolog controlled (12) Atrial fibrillation: Plan: Permanent a.fib Rates controlled Cont metoprolol. He is NOT on chronic anticoagulation at baseline (records suggest due to gross hematuria??) can downgrade off tele (13) Hypercholesterolemia: Plan: Cont lipitor. (14) Balanitis: Plan: continue miconazole powder TID urethral meatus area c/w sarita Plan DVT proph-heparin SQ Dispo-continued stay but downgrade to med/surg, hopefully dc to rehab in 1-2 days Admission and Anticipated Discharge Date Admission Date: October 24, 2022 Subjective Pt feeling better today. Pain controlled, is able to sit on side of bed. Still feels very weak with standing and is agreeable to rehab as recommended. Denies lightheadedness, CP, SOB, nausea. Has Aaron in place x 11 days for incontinence while bed ridden but not retention Tele with Afib, 80s Physical Exam Constitutional: WD/WN, vitals as above Neck: trachea midline, no thyromegaly Respiratory: normal respiratory effort, lungs clear to auscultation Cardiovascular: Rate/Rhythm: regular rate and + irregularly irregular Heart Sounds: no murmur Extremities: + edema (1+ ankle edema bilat) Chest (Breasts): Chest: normal inspection of chest Gastrointestinal (Abdomen): normal bowel sounds, soft, nontender, no hepatosplenomegaly Musculoskeletal: Extremities: extremities normal to inspection; no cyanosis and no clubbing Skin: no rashes, warm and dry Neurologic: moves all extremities and awake; no focal motor deficits Psychiatric: A+Ox3, euthymic affect Results & Data Results & Data Vital Signs (Past 12 Hours) Vital Signs Temp Pulse Pulse Resp BP BP Pulse Ox 11/06/22 08:07 36.5 C 93 H 18 114/81 97 11/06/22 06:56 88 11/06/22 03:04 36.5 C 92 H 18 124/83 94 11/05/22 23:11 36.6 C 88 18 121/80 95 O2 Del Method 11/06/22 08:07 Room Air 11/06/22 06:56 11/06/22 03:04 Room Air 11/05/22 23:11 Room Air Laboratory Results CBC, BMP reviewed PG Care Time/CCT Total # of Minutes Spent Total Time Spent with Patient: Total time spent is greater than 50% in coordination of care (as documented) at patient's floor/unit and/or counseling patient: Coding Level of Care Code 74576 SUB INP/OBS CARE 2/35MIN Diagnoses Spinal stenosis M48.00 Spinal region: unspecified HTN (hypertension) I10 COVID-19 U07.1 Visual hallucinations R44.1 Chronic steroid use Acute deep vein thrombosis (DVT) of distal vein of left lower extremity I82.4Z2 Weakness R53.1 Thrombocytopenia D69.6 Anxiety F41.9 Prostate cancer C61 DMII (diabetes mellitus, type 2) E11.9 Atrial fibrillation I48.91 Hypercholesterolemia E78.00 Balanitis N48.1 (1) Spinal stenosis Spinal region: unspecified Qualified Code(s): M48.00 - Spinal stenosis, site unspecified
[2022-11-06] MEDS: HYDROCORTISONE SOD 75 MG in SYRINGE 0 ML IV SCH ×2 (11:32→18:59)
--- NOTE | 2022-11-06 11:41 | Orthopedic Progress Note ---
Date of Service November 06, 2022 Assessment & Plan (1) Neurogenic claudication due to lumbar spinal stenosis: Plan: At this time we will continue to encourage him to get to the bedside chair and stand as tolerated. Hopefully will progress without the next several days to standing and ambulation and ultimately rehab placement. Patient stands and agrees. Admission and Anticipated Discharge Date Admission Date: October 24, 2022 Subjective Patient's back pain is controlled leg symptoms improved Patient was able to stand yesterday with assistance. Physical Exam Physical Exam: On exam is currently in bed. He does have strength in bilateral extremities. Results & Data Vital Signs (Past 12 Hours) Vital Signs Temp Pulse Pulse Resp BP BP Pulse Ox 11/06/22 11:32 36.5 C 80 18 112/76 96 11/06/22 08:07 36.5 C 93 H 18 114/81 97 11/06/22 06:56 88 11/06/22 03:04 36.5 C 92 H 18 124/83 94 O2 Del Method 11/06/22 11:32 Room Air 11/06/22 08:07 Room Air 11/06/22 06:56 11/06/22 03:04 Room Air Queries Orthopedic Spine Obesity: Yes
[2022-11-06] MEDS: MELATONIN 3 MG TAB PO SCH (20:50)
[2022-11-07] MEDS: HYDROCODONE/ACETAMINOPHEN 7.5/325MG TAB PO PRN (00:17)
[2022-11-07] MEDS: HYDROCORTISONE SOD 75 MG in SYRINGE 0 ML IV SCH (05:17)
[2022-11-07] MEDS: HEPARIN SOD 5,000 UNIT/0.5 ML VIAL SQ SCH ×3 (05:17→21:02)
[2022-11-07 07:57] LABS: Hemoglobin 11.4 g/dl (14.0-18.0); Mean Corpuscular Hemoglobin 31.5 pg (25.0-34.0); Mean Corpuscular Hgb Conc 34.5 g/dL (32.0-36.0); Mean Corpuscular Volume 91.2 fL (80.0-100.0); Nucleated RBC # (auto) 0.03 K/uL (0.00-0.12); Nucleated RBC % (auto) 0.3 %; Platelet Count 152 K/uL (130-400); RDW Coefficient of Variation 13.9 % (11.5-14.5); RDW Standard Deviation 46.5 fL (36.4-46.3); Red Blood Count 3.62 M/uL (4.70-6.10); White Blood Count 9.77 K/ul (4.8-10.8)
[2022-11-07 08:05] LABS: BUN Creatinine Ratio 23.4 (10-20); Calcium 7.8 mg/dl (8.6-10.3); Creatinine Clr Calc Pharmacy 66.1 ml/min; Est GFR (African American) 76.7 ml/min; Est GFR (Non-African American) 66.1 ml/min; Potassium 4.7 mmol/L (3.5-5.1)
[2022-11-07] MEDS: CYANOCOBALAMIN (B-12) 500 MCG TABLET PO SCH (08:27)
[2022-11-07] MEDS: predniSONE 5 MG TAB PO SCH ×2 (08:27→21:03)
[2022-11-07] MEDS: PANTOprazole 40 MG TAB PO SCH ×2 (08:28→21:04)
[2022-11-07] MEDS: LORATADINE 10 MG TAB PO SCH (08:28)
[2022-11-07] MEDS: CEROVITE ADV FORMULA TAB PO SCH (08:28)
[2022-11-07] MEDS: ATORVASTATIN 20 MG TAB PO SCH (08:28)
[2022-11-07] MEDS: SERTRALINE HCL 100 MG TABLET PO SCH (08:28)
[2022-11-07] MEDS: ABIRATERONE ACETATE 500 MG PO SCH (08:28)
[2022-11-07] MEDS: METOPROLOL SUCC 50MG EXT REL TAB PO SCH (08:28)
[2022-11-07] MEDS: MICONAZOLE NITRATE POWDER 85 GM EXT SCH ×3 (08:28→21:04)
[2022-11-07] MEDS: CALCIUM 600MG + VIT D 400 IU TAB PO SCH (08:28)
[2022-11-07 08:35] LABS: ANC (manual) 8.99 K/uL (1.4-6.5); Echinocytes 1+; Lymphocytes % (manual) 2 %; Metamyelocytes % (manual) 1 %; Monocytes # (manual) 0.39 K/uL (0.11-0.59); Monocytes % (manual) 4 %; Myelocytes % (manual) 1 %; Neutrophils # (manual) 8.99 K/uL (1.40-6.50); Neutrophils % (manual) 92 %; Polychromasia 1+
[2022-11-07] MEDS: INSULIN ASPART PER UNIT CHARGE SC SCH ×4 (08:38→21:00)
[2022-11-07] MEDS: LANTUS PER UNIT CHARGE SQ SCH ×2 (08:39→20:59)
[2022-11-07] MEDS: ACETAMINOPHEN 500 MG TAB PO SCH ×3 (08:39→21:01)
[2022-11-07] MEDS: TRIAMCINOLONE ACET 0.1% CR 15 GM TUBE TOP SCH ×3 (08:41→21:08)
--- NOTE | 2022-11-07 13:04 | Hospitalist Progress Note ---
Date of Service November 07, 2022 Assessment & Plan (1) Spinal stenosis: Plan: Severe foraminal and central spinal stenosis on recent MRI l-spine. Seen by Dr Velazco's team during the prior hospitalization. Surgical intervention was offered but patient had initially declined such. Now s/p lumbar decompression, fusion on 11/04/22. In preparation for possible lumbar back surgery, echo was obtained which showed mod-severe MR/TR Vascular surgery consulted to determine if IVC filter should be placed. Venous duplex ultrasound ordered that did not show any new DVT, and showed left popliteal DVT, nonocclusive. Vascular surgery does not recommend IVC filter placement. Had some intermittent hypotension from adrenal insufficiency, acute blood loss anemia post-op which is now resolved with stress dosed steroids hgb down to 11.4 from 15 preop but fairly stable the last 2 days Very weak in legs from deconditioning and essentially did not walk or exercise for 11 days in hospital prior to surgery -pain control, bowel regimen as per Ortho -PT/OT-needs rehab -follow CBC, BMP -stress dose steroids as below -removed Aaron and voiding on own (2) HTN (hypertension): Plan: Was having elevated BPs and had amlodipine increased to 5mg BID. Then BPs low intra-op and post-op--> likely due to adrenal insufficiency and some blood loss (250mL) BPs now much improved with increased IV hydrocortisone dose Also, he had been getting the wrong dose of prednisone (home dose 5mg TWICE a day) -continue to HOLD amlodipine and lisinopril -Continue metoprolol home dose for rate control of Afib -taper stress dose steroids again today to HC 50mg IV q12h today, then go to prednisone 10mg po bid tomorrow -continue home prednisone dose of 5mg po bid (3) COVID-19: Plan: Patient initially tested + for COVID-19 in mid-September. He was hospitalized at that time and had acute hypoxic respiratory failure - treated with steroids, etc. He continues to test + on PCR testing. Interestingly he had several days of URI symptoms as well as cough/wheezing in the days leading up to this admission. His [employer] respiratory panel was negative for other viral pathogens. Additionally, pt's significant other tested negative for COVID in September multiple times. However, he tested + for COVID THIS PAST WEEK. Either patient has been re-infected or he has had ongoing COVID symptoms since his original index admission 09/24/22. Symptoms now resolved-Was on dexamethasone for a week, completed remdesivir 5- day course -removed from isolation precautions (4) Visual hallucinations: Plan: delirium from his COVID infection? toxic from gabapentin? gabapentin was stopped and symptoms resolved recent MRI brain was normal (5) Chronic steroid use: Plan: on Prednisone 5mg bid for prostate cancer with bony mets. Continue stress dose of hydrocortisone IV post op (6) Acute deep vein thrombosis (DVT) of distal vein of left lower extremity: Plan: 10/12/22 - doppler of LLE showed "Nonocclusive thrombus in the left popliteal vein as well as one of 2 peroneal veins." Due to low platelets, h/o hematuria, and possible chronic nature of the DVT a d ecision was made not to anticoagulate at that time. RLE doppler study negative for DVT this admission. Vascular surgery repeated lower extremity duplex. With L popliteal DVT considered old. No IVC filter placement planned even though multiple VTE risk factors - COVID infection, significant immobility, upcoming surgery, etc. Plan to do DVT prophylaxis per ortho spine postsurgically-on SQ heparin (7) Weakness: Plan: multifactorial - recent or recurrent COVID-19 infection; deconditioning; toxic effects from narcotics/baclofen; known lumbar foraminal/spinal stenosis; adrenal crisis; other processes. MRI Brain neg for stroke. Oxycontin/oxycodone and baclofen stopped. cont PT, OT-needs rehab (8) Thrombocytopenia: Plan: Patient has been thrombocytopenic since his COVID dx in mid-September. Now resolved and was from COVID peripheral smear unrevealing immature platelet fraction returned normal making ITP unlikely. B12 low-normal; replaced. folate wnl. platelets HAVE improved while here with steroids. (9) Anxiety: Plan: Dep/anxiety Cont sertraline (10) Prostate cancer: Plan: Stage 4 with bony mets. On Zytiga and prednisone chronically. Follows with Dr Olivia Liriano - [facility]. MRI Brain neg for cva or metastatic disease (11) DMII (diabetes mellitus, type 2): Plan: a1c 7.7% 09/24/22. cont lantus cont novolog controlled (12) Atrial fibrillation: Plan: Permanent a.fib Rates controlled Cont metoprolol. He is NOT on chronic anticoagulation at baseline (records suggest due to gross hematuria??) (13) Hypercholesterolemia: Plan: Cont lipitor. (14) Balanitis: Plan: continue miconazole powder TID urethral meatus area c/w sarita Plan DVT proph-heparin SQ Dispo-continued stay on med/surg,medically stable for dc but awaiting insurance auth Admission and Anticipated Discharge Date Admission Date: October 24, 2022 Subjective Pt frustrated that he can barely stand with PT. Can lift legs and move them while seated but strength poor with standing. Is voiding, did not move bowels since 2 days ago. No other concerns, no lightheadedness with standing Physical Exam Constitutional: WD/WN, vitals as above Neck: trachea midline, no thyromegaly Respiratory: normal respiratory effort, lungs clear to auscultation Cardiovascular: Rate/Rhythm: regular rate and + irregularly irregular Heart Sounds: no murmur Extremities: + edema (1+ ankle edema bilat) Chest (Breasts): Chest: normal inspection of chest Gastrointestinal (Abdomen): normal bowel sounds, soft, nontender, no hepatosplenomegaly Musculoskeletal: Extremities: extremities normal to inspection; no cyanosis and no clubbing Skin: no rashes, warm and dry Neurologic: moves all extremities and awake; no focal motor deficits Psychiatric: A+Ox3, euthymic affect Results & Data Results & Data Vital Signs (Past 12 Hours) Vital Signs Temp Pulse Resp BP Pulse Ox O2 Del Method 11/07/22 07:42 36.6 C 88 16 128/84 94 Room Air Laboratory Results CBC, BMP, magnesium reviewed PG Care Time/CCT Total # of Minutes Spent Total Time Spent with Patient: Total time spent is greater than 50% in coordination of care (as documented) at patient's floor/unit and/or counseling patient: Coding Level of Care Code 42560 SUB INP/OBS CARE 2/35MIN Diagnoses Spinal stenosis M48.00 Spinal region: unspecified HTN (hypertension) I10 COVID-19 U07.1 Visual hallucinations R44.1 Chronic steroid use Acute deep vein thrombosis (DVT) of distal vein of left lower extremity I82.4Z2 Weakness R53.1 Thrombocytopenia D69.6 Anxiety F41.9 Prostate cancer C61 DMII (diabetes mellitus, type 2) E11.9 Atrial fibrillation I48.91 Hypercholesterolemia E78.00 Balanitis N48.1 (1) Spinal stenosis Spinal region: unspecified Qualified Code(s): M48.00 - Spinal stenosis, site unspecified
--- NOTE | 2022-11-07 16:16 | Orthopedic Progress Note ---
Date of Service November 07, 2022 Assessment & Plan (1) Neurogenic claudication due to lumbar spinal stenosis: Plan: At this time we will continue with physical therapy occupational therapy and when he is medically stable he is a candidate for rehab. Admission and Anticipated Discharge Date Admission Date: October 24, 2022 Subjective Patient's back pain is controlled leg pain improved Physical Exam Physical Exam: Patient is sitting up bedside. He is good strength testing lower extremities. Results & Data Vital Signs (Past 12 Hours) Vital Signs Temp Pulse Resp BP BP Pulse Ox O2 Del Method 11/07/22 15:17 37.0 C 86 18 100/69 94 Room Air 11/07/22 07:42 36.6 C 88 16 128/84 94 Room Air Queries Orthopedic Spine Obesity: Yes
[2022-11-07] MEDS: HYDROCORTISONE SOD 50 MG in SYRINGE 0 ML IV SCH (17:21)
[2022-11-07] MEDS: MELATONIN 3 MG TAB PO SCH (21:03)
[2022-11-08] MEDS: HYDROCODONE/ACETAMINOPHEN 7.5/325MG TAB PO PRN ×3 (04:12→21:12)
[2022-11-08] MEDS: HYDROCORTISONE SOD 50 MG in SYRINGE 0 ML IV SCH (04:13)
[2022-11-08] MEDS: HEPARIN SOD 5,000 UNIT/0.5 ML VIAL SQ SCH ×3 (05:52→21:16)
[2022-11-08 07:59] LABS: Hematocrit (blood only) 35.2 % (42.0-52.0); Hemoglobin 11.5 g/dl (14.0-18.0); Mean Corpuscular Hemoglobin 30.7 pg (25.0-34.0); Mean Corpuscular Hgb Conc 32.7 g/dL (32.0-36.0); Mean Corpuscular Volume 94.1 fL (80.0-100.0); Mean Platelet Volume 9.8 fL (9.4-12.4); Nucleated RBC # (auto) 0.07 K/uL (0.00-0.12); Nucleated RBC % (auto) 0.7 %; Platelet Count 157 K/uL (130-400); RDW Coefficient of Variation 14.1 % (11.5-14.5); RDW Standard Deviation 47.6 fL (36.4-46.3); Red Blood Count 3.74 M/uL (4.70-6.10); White Blood Count 10.16 K/ul (4.8-10.8)
[2022-11-08 08:23] LABS: Basophils # (auto) 0.06 K/uL (0.00-0.20); Basophils % (auto) 0.6 %; Eosinophils # (auto) 0.06 K/uL (0.00-0.50); Eosinophils % (auto) 0.6 %; Immature Granulocytes # (auto) 0.65 K/uL (0.01-0.20); Immature Granulocytes % (auto) 6.4 %; Lymphocytes # (auto) 0.57 K/uL (1.20-3.40); Lymphocytes % (auto) 5.6 %; Monocytes # (auto) 0.73 K/uL (0.11-0.59); Monocytes % (auto) 7.2 %; Neutrophils # (auto) 8.09 K/uL (1.40-6.50); Neutrophils % (auto) 79.6 %; Ovalocytes 1+; Polychromasia 1+
[2022-11-08] MEDS: INSULIN ASPART PER UNIT CHARGE SC SCH ×4 (08:27→20:59)
[2022-11-08] MEDS: LANTUS PER UNIT CHARGE SQ SCH ×2 (08:28→21:11)
[2022-11-08] MEDS: ABIRATERONE ACETATE 500 MG PO SCH (08:29)
[2022-11-08] MEDS: PANTOprazole 40 MG TAB PO SCH ×2 (08:29→20:13)
[2022-11-08] MEDS: TRIAMCINOLONE ACET 0.1% CR 15 GM TUBE TOP SCH ×2 (08:29→20:14)
[2022-11-08] MEDS: CYANOCOBALAMIN (B-12) 500 MCG TABLET PO SCH (08:30)
[2022-11-08] MEDS: predniSONE 5 MG TAB PO SCH (08:30)
[2022-11-08] MEDS: LORATADINE 10 MG TAB PO SCH (08:30)
[2022-11-08] MEDS: ATORVASTATIN 20 MG TAB PO SCH (08:31)
[2022-11-08] MEDS: CALCIUM 600MG + VIT D 400 IU TAB PO SCH (08:31)
[2022-11-08] MEDS: METOPROLOL SUCC 50MG EXT REL TAB PO SCH (08:31)
[2022-11-08] MEDS: SERTRALINE HCL 100 MG TABLET PO SCH (08:31)
[2022-11-08] MEDS: CEROVITE ADV FORMULA TAB PO SCH (08:32)
[2022-11-08] MEDS: MICONAZOLE NITRATE POWDER 85 GM EXT SCH ×3 (08:32→20:14)
[2022-11-08] MEDS: ACETAMINOPHEN 500 MG TAB PO SCH ×3 (08:33→20:14)
[2022-11-08 08:35] LABS: BUN Creatinine Ratio 27.8 (10-20); Calcium 8.1 mg/dl (8.6-10.3); Creatinine Clr Calc Pharmacy 72.9 ml/min; Est GFR (African American) 86.3 ml/min; Est GFR (Non-African American) 74.5 ml/min; Potassium 5.9 mmol/L (3.5-5.1)
[2022-11-08 12:35] LABS: Appearance Urine Turbid (Clear); Bacteria Urine Automated 4+ (Negative); Bilirubin Urine Negative (Negative); Blood Urine 3+ (Negative); Color Urine Dark Yellow; Glucose Urine UA Negative (Negative); Ketones Urine Negative (Negative); Leukocyte Esterase Urine 3+ (Negative); Nitrite Urine Positive (Negative); RBC Urine Automated >30 /hpf (0-4); Specific Gravity Urine 1.028 (1.000-1.030); Urobilinogen Urine Negative (Negative); WBC Urine Automated >30 /hpf (0-5)
[2022-11-08 12:43] LABS: Protein Urine 2+ (Negative)
--- NOTE | 2022-11-08 14:47 | Orthopedic Progress Note ---
Date of Service November 08, 2022 Assessment & Plan (1) Neurogenic claudication due to lumbar spinal stenosis: Plan: At this time we will continue physical therapy attempt at the bed to chair. He is okay for rehab in the next few days. Admission and Anticipated Discharge Date Admission Date: October 24, 2022 Subjective Patient's back pain is controlled leg pain improved Physical Exam Physical Exam: Patient is in bed at this time. Is constricted testing lower extremities. Results & Data Vital Signs (Past 12 Hours) Vital Signs Temp Pulse Resp BP BP Pulse Ox O2 Del Method 11/08/22 14:39 36.8 C 90 18 111/76 92 Room Air 11/08/22 10:22 140/80 95 Room Air 11/08/22 08:30 Room Air 11/08/22 07:56 36.7 C 98 H 17 159/91 H 93 Room Air Queries Orthopedic Spine Obesity: Yes
--- NOTE | 2022-11-08 18:41 | Hospitalist Progress Note ---
Date of Service November 08, 2022 Assessment & Plan (1) Spinal stenosis: Plan: Severe foraminal and central spinal stenosis on recent MRI L-spine. Seen by Dr Velazco's team during the prior hospitalization. Surgical intervention was offered but patient had initially declined such. Now s/p lumbar decompression, fusion on 11/04/22. In preparation for possible lumbar back surgery, echo was obtained which showed mod-severe MR/TR Vascular surgery consulted to determine if IVC filter should be placed. Venous duplex ultrasound ordered that did not show any new DVT, and showed left popliteal DVT, nonocclusive. Vascular surgery does not recommend IVC filter placement. Had some intermittent hypotension from adrenal insufficiency, acute blood loss anemia post-op which is now resolved with stress dosed steroids hgb down to 11.5 from 15 preop but fairly stable for several days Very weak in legs from deconditioning and essentially did not walk or exercise for 11 days in hospital prior to surgery -pain control, bowel regimen as per Ortho -PT/OT-needs rehab -stress dose steroids as below -f/u with Ortho Spine after discharge (2) HTN (hypertension): Plan: Was having elevated BPs and had amlodipine increased to 5mg BID. Then BPs low intra-op and post-op--> likely due to adrenal insufficiency and some blood loss (250mL) BPs now much improved with increased IV hydrocortisone dose Also, he had been getting the wrong dose of prednisone (home dose 5mg TWICE a day) -continue to HOLD amlodipine and lisinopril -Continue metoprolol home dose for rate control of Afib -taper stress dose steroids -discontinue IV hydrocortisone and start prednisone 10mg po bid --> eventual decrease back to home dose of prednisone 5mg bid (3) Urinary tract infection: Plan: Had dysuria on 11/08, 2 days after Aaron removed UA abnormal and c/w UTI start ceftriaxone and follow Ur cx (4) COVID-19: Plan: Patient initially tested + for COVID-19 in mid-September. He was hospitalized at that time and had acute hypoxic respiratory failure - treated with steroids, etc. He continues to test + on PCR testing. Interestingly he had several days of URI symptoms as well as cough/wheezing in the days leading up to this admission. His [employer] respiratory panel was negative for other viral pathogens. Additionally, pt's significant other tested negative for COVID in September multiple times. However, he tested + for COVID THIS PAST WEEK. Either patient has been re-infected or he has had ongoing COVID symptoms since his original index admission 09/24/22. Symptoms now resolved-Was on dexamethasone for a week, completed remdesivir 5- day course -removed from isolation precautions (5) Visual hallucinations: Plan: delirium from his COVID infection? toxic from gabapentin? gabapentin was stopped and symptoms resolved recent MRI brain was normal (6) Chronic steroid use: Plan: on Prednisone 5mg bid for prostate cancer with bony mets. Was on stress dose of hydrocortisone IV post op-now weaned off and on prednisone 10mg po bid-wean down (7) Acute deep vein thrombosis (DVT) of distal vein of left lower extremity: Plan: 10/12/22 - doppler of LLE showed "Nonocclusive thrombus in the left popliteal vein as well as one of 2 peroneal veins." Due to low platelets, h/o hematuria, and possible chronic nature of the DVT a decision was made not to anticoagulate at that time. RLE doppler study negative for DVT this admission. Vascular surgery repeated lower extremity duplex. With L popliteal DVT considered old. No IVC filter placement planned even though multiple VTE risk factors - COVID infection, significant immobility, upcoming surgery, etc. (8) Weakness: Plan: multifactorial - recent or recurrent COVID-19 infection; deconditioning; toxic effects from narcotics/baclofen; known lumbar foraminal/spinal stenosis; adrenal crisis; other processes. MRI Brain neg for stroke. Oxycontin/oxycodone and baclofen stopped. cont PT, OT-needs rehab (9) Thrombocytopenia: Plan: Patient has been thrombocytopenic since his COVID dx in mid-September. Now resolved and was from COVID peripheral smear unrevealing immature platelet fraction returned normal making ITP unlikely. B12 low-normal; replaced. folate wnl. platelets HAVE improved while here with steroids. (10) Anxiety: Plan: Dep/anxiety Cont sertraline (11) Prostate cancer: Plan: Stage 4 with bony mets. On Zytiga and prednisone chronically. Follows with Dr Olivia Liriano - [facility]. MRI Brain neg for cva or metastatic disease (12) DMII (diabetes mellitus, type 2): Plan: a1c 7.7% 09/24/22. cont lantus cont novolog controlled (13) Atrial fibrillation: Plan: Permanent a.fib Rates controlled Cont metoprolol. He is NOT on chronic anticoagulation at baseline (records suggest due to gross hematuria??) (14) Hypercholesterolemia: Plan: Cont lipitor. (15) Balanitis: Plan: continue miconazole powder TID urethral meatus area c/w sarita Plan DVT proph-heparin SQ Dispo-continued stay on med/surg,medically stable for dc but awaiting insurance auth Admission and Anticipated Discharge Date Admission Date: October 24, 2022 Subjective Pt reports burning with urination today. Is moving bowels, pain in back controlled. Was able to stand up and take a couple steps today with PT. Physical Exam Constitutional: WD/WN, vitals as above Neck: trachea midline, no thyromegaly Respiratory: normal respiratory effort, lungs clear to auscultation Cardiovascular: Rate/Rhythm: regular rate and + irregularly irregular Heart Sounds: no murmur Extremities: + edema (1+ ankle edema bilat) Chest (Breasts): Chest: normal inspection of chest Gastrointestinal (Abdomen): normal bowel sounds, soft, nontender, no hepatosplenomegaly Musculoskeletal: Extremities: extremities normal to inspection; no cyanosis and no clubbing Skin: no rashes, warm and dry Neurologic: moves all extremities and awake; no focal motor deficits Psychiatric: A+Ox3, euthymic affect Results & Data Results & Data Vital Signs (Past 12 Hours) Vital Signs Temp Pulse Resp BP BP Pulse Ox O2 Del Method 11/08/22 14:39 36.8 C 90 18 111/76 92 Room Air 11/08/22 10:22 140/80 95 Room Air 11/08/22 08:30 Room Air 11/08/22 07:56 36.7 C 98 H 17 159/91 H 93 Room Air Laboratory Results CBC, BMP, repeat K+, UA reviewed PG Care Time/CCT Total # of Minutes Spent Total Time Spent with Patient: Total time spent is greater than 50% in coordination of care (as documented) at patient's floor/unit and/or counseling patient: Coding Level of Care Code 46783 SUB INP/OBS CARE 2/35MIN Diagnoses Spinal stenosis M48.00 Spinal region: unspecified HTN (hypertension) I10 Urinary tract infection N39.0 COVID-19 U07.1 Visual hallucinations R44.1 Chronic steroid use Acute deep vein thrombosis (DVT) of distal vein of left lower extremity I82.4Z2 Weakness R53.1 Thrombocytopenia D69.6 Anxiety F41.9 Prostate cancer C61 DMII (diabetes mellitus, type 2) E11.9 Atrial fibrillation I48.91 Hypercholesterolemia E78.00 Balanitis N48.1 (1) Spinal stenosis Spinal region: unspecified Qualified Code(s): M48.00 - Spinal stenosis, site unspecified
[2022-11-08] MEDS: cefTRIAXone SODIUM 2,000 MG in DEXTROSE 5% 50 ML IV SCH (20:09)
[2022-11-08] MEDS: predniSONE 10 MG TABLET PO SCH (20:12)
[2022-11-08] MEDS: MELATONIN 3 MG TAB PO SCH (20:13)
[2022-11-09] MEDS: HYDROCODONE/ACETAMINOPHEN 7.5/325MG TAB PO PRN ×3 (04:24→21:20)
[2022-11-09] MEDS: HEPARIN SOD 5,000 UNIT/0.5 ML VIAL SQ SCH ×3 (05:33→21:21)
[2022-11-09] MEDS: SERTRALINE HCL 100 MG TABLET PO SCH (08:44)
[2022-11-09] MEDS: PANTOprazole 40 MG TAB PO SCH ×2 (08:44→21:20)
[2022-11-09] MEDS: CEROVITE ADV FORMULA TAB PO SCH (08:44)
[2022-11-09] MEDS: predniSONE 10 MG TABLET PO SCH ×2 (08:44→21:20)
[2022-11-09] MEDS: LORATADINE 10 MG TAB PO SCH (08:45)
[2022-11-09] MEDS: METOPROLOL SUCC 50MG EXT REL TAB PO SCH (08:45)
[2022-11-09] MEDS: CALCIUM 600MG + VIT D 400 IU TAB PO SCH (08:45)
[2022-11-09] MEDS: ATORVASTATIN 20 MG TAB PO SCH (08:45)
[2022-11-09] MEDS: CYANOCOBALAMIN (B-12) 500 MCG TABLET PO SCH (08:45)
[2022-11-09] MEDS: MICONAZOLE NITRATE POWDER 85 GM EXT SCH ×3 (08:48→21:21)
[2022-11-09] MEDS: TRIAMCINOLONE ACET 0.1% CR 15 GM TUBE TOP SCH ×2 (08:49→21:09)
[2022-11-09] MEDS: ABIRATERONE ACETATE 500 MG PO SCH (08:52)
[2022-11-09] MEDS: ACETAMINOPHEN 500 MG TAB PO SCH ×3 (08:56→21:19)
[2022-11-09] MEDS: INSULIN ASPART PER UNIT CHARGE SC SCH ×4 (08:56→21:21)
[2022-11-09] MEDS: LANTUS PER UNIT CHARGE SQ SCH ×2 (08:56→21:21)
[2022-11-09] MEDS: ONDANSETRON INJ 2 MG/ML 2 ML VIAL IV PRN (10:10)
--- NOTE | 2022-11-09 13:47 | Hospitalist Progress Note ---
Date of Service November 09, 2022 Assessment & Plan (1) Spinal stenosis: Plan: Severe foraminal and central spinal stenosis on recent MRI L-spine. Seen by Dr Velazco's team during the prior hospitalization. Surgical intervention was offered but patient had initially declined such. Now s/p lumbar decompression, fusion on 11/04/22. In preparation for possible lumbar back surgery, echo was obtained which showed mod-severe MR/TR Vascular surgery consulted to determine if IVC filter should be placed. Venous duplex ultrasound ordered that did not show any new DVT, and showed left popliteal DVT, nonocclusive. Vascular surgery does not recommend IVC filter placement. Had some intermittent hypotension from adrenal insufficiency, acute blood loss anemia post-op which is now resolved with stress dosed steroids hgb down to 11.5 from 15 preop but fairly stable for several days Very weak in legs from deconditioning and essentially did not walk or exercise for 11 days in hospital prior to surgery -pain control, bowel regimen as per Ortho -PT/OT-needs rehab -stress dose steroids as below -f/u with Ortho Spine after discharge (2) HTN (hypertension): Plan: Was having elevated BPs and had amlodipine increased to 5mg BID. Then BPs low intra-op and post-op--> likely due to adrenal insufficiency and some blood loss (250mL) Also, he had been getting the wrong dose of prednisone (home dose 5mg TWICE a day) BPs now much improved with increased steroid -continue to HOLD amlodipine and lisinopril -Continue metoprolol home dose for rate control of Afib -taper stress dose steroids -on prednisone 10mg po bid --> eventual decrease back to home dose of prednisone 5mg bid (3) Urinary tract infection: Plan: Had dysuria on 11/08, 2 days after Aaron removed UA abnormal and c/w UTI, UCx with GNR Started ceftriaxone 11/08 and tailor pending final UCx results - discussed nausea with ceftriaxone and patient ok with continuing this antibiotic (4) COVID-19: Plan: Patient initially tested + for COVID-19 in mid-September. He was hospitalized at that time and had acute hypoxic respiratory failure - treated with steroids, etc. He continues to test + on PCR testing. Interestingly he had several days of URI symptoms as well as cough/wheezing in the days leading up to this admission. His [employer] respiratory panel was negative for other viral pathogens. Additionally, pt's significant other tested negative for COVID in September multiple times. However, he tested + for COVID in the week prior to admission Either patient has been re-infected or he has had ongoing COVID symptoms since his original index admission 09/24/22. Symptoms now resolved-Was on dexamethasone for a week, completed remdesivir 5- day course -removed from isolation precautions (5) Visual hallucinations: Plan: delirium from his COVID infection? toxic from gabapentin? gabapentin was stopped and symptoms resolved recent MRI brain was normal (6) Chronic steroid use: Plan: on Prednisone 5mg bid for prostate cancer with bony mets. Was on stress dose of hydrocortisone IV post op-now weaned off and on prednisone 10mg po bid-wean down (7) Acute deep vein thrombosis (DVT) of distal vein of left lower extremity: Plan: 10/12/22 - doppler of LLE showed "Nonocclusive thrombus in the left popliteal vein as well as one of 2 peroneal veins." Due to low platelets, h/o hematuria, and possible chronic nature of the DVT a decision was made not to anticoagulate at that time. RLE doppler study negative for DVT this admission. Vascular surgery repeated lower extremity duplex. With L popliteal DVT considered old. No IVC filter placement planned even though multiple VTE risk factors - COVID infection, significant immobility, surgery, etc. (8) Weakness: Plan: multifactorial - recent or recurrent COVID-19 infection; deconditioning; toxic effects from narcotics/baclofen; known lumbar foraminal/spinal stenosis; adrenal crisis; other processes. MRI Brain neg for stroke. Oxycontin/oxycodone and baclofen stopped. cont PT, OT-needs rehab (9) Thrombocytopenia: Plan: Patient has been thrombocytopenic since his COVID dx in mid-September. Now resolved and was from COVID peripheral smear unrevealing immature platelet fraction returned normal making ITP unlikely. B12 low-normal; replaced. folate wnl. platelets HAVE improved while here with steroids. (10) Anxiety: Plan: Dep/anxiety Cont sertraline (11) Prostate cancer: Plan: Stage 4 with bony mets. On Zytiga and prednisone chronically. Follows with Dr Olivia Liriano - [facility]. MRI Brain neg for cva or metastatic disease (12) DMII (diabetes mellitus, type 2): Plan: a1c 7.7% 09/24/22. cont lantus cont novolog controlled (13) Atrial fibrillation: Plan: Permanent a.fib Rates controlled Cont metoprolol. He is NOT on chronic anticoagulation at baseline (records suggest due to gross hematuria??) (14) Hypercholesterolemia: Plan: Cont lipitor. (15) Balanitis: Plan: continue miconazole powder TID urethral meatus area c/w sarita Plan DVT proph-heparin SQ Dispo-continued stay on med/surg,medically stable for dc but awaiting insurance auth Admission and Anticipated Discharge Date Admission Date: October 24, 2022 Subjective Reports muscle achiness of bilateral lower extremities that he attributes to his prostate cancer treatment, and unrelated to his spine surgery. Tolerating p.o. but has had some nausea in relation to the antibiotics for his UTI. No chest pain, shortness of breath, or lightheadedness/dizziness. Otherwise no significant concerns today. Review of Systems Review of Systems: Per subjective Physical Exam Physical Exam: General: Well-appearing, NAD Cardiovascular: regular rate Pulmonary: CTAB, no W/R/R Integumentary: No suspicious rash or lesion on exposed skin Neurologic: AAOx3, no focal deficits Psychiatric: Appropriate mood/affect Results & Data Results & Data Vital Signs (Past 12 Hours) Vital Signs Temp Pulse Resp BP Pulse Ox O2 Del Method 11/09/22 08:10 36.8 C 96 H 16 133/84 96 Room Air Laboratory Results Urine culture 11/08 started growing gram-negative bacilli PG Care Time/CCT Total # of Minutes Spent Total Time Spent with Patient: Total time spent is greater than 50% in coordination of care (as documented) at patient's floor/unit and/or counseling patient: Coding Level of Care Code 50474 SUB INP/OBS CARE 03/06MIN Diagnoses Spinal stenosis M48.00 Spinal region: unspecified HTN (hypertension) I10 Urinary tract infection N39.0 COVID-19 U07.1 Visual hallucinations R44.1 Chronic steroid use Acute deep vein thrombosis (DVT) of distal vein of left lower extremity I82.4Z2 Weakness R53.1 Thrombocytopenia D69.6 Anxiety F41.9 Prostate cancer C61 DMII (diabetes mellitus, type 2) E11.9 Atrial fibrillation I48.91 Hypercholesterolemia E78.00 Balanitis N48.1 (1) Spinal stenosis Spinal region: unspecified Qualified Code(s): M48.00 - Spinal stenosis, site unspecified
[2022-11-09] MEDS: cefTRIAXone SODIUM 2,000 MG in DEXTROSE 5% 50 ML IV SCH (21:19)
[2022-11-09] MEDS: MELATONIN 3 MG TAB PO SCH (21:20)
[2022-11-10] MEDS: HEPARIN SOD 5,000 UNIT/0.5 ML VIAL SQ SCH ×3 (05:42→21:35)
[2022-11-10] MEDS: ACETAMINOPHEN 500 MG TAB PO SCH ×3 (08:55→21:33)
[2022-11-10] MEDS: HYDROCODONE/ACETAMINOPHEN 7.5/325MG TAB PO PRN ×3 (08:59→21:33)
[2022-11-10] MEDS: INSULIN ASPART PER UNIT CHARGE SC SCH ×4 (09:00→21:33)
[2022-11-10] MEDS: LANTUS PER UNIT CHARGE SQ SCH ×2 (09:00→21:35)
[2022-11-10] MEDS: ABIRATERONE ACETATE 500 MG PO SCH (09:01)
[2022-11-10] MEDS: SERTRALINE HCL 100 MG TABLET PO SCH (09:02)
[2022-11-10] MEDS: ATORVASTATIN 20 MG TAB PO SCH (09:02)
[2022-11-10] MEDS: CALCIUM 600MG + VIT D 400 IU TAB PO SCH (09:02)
[2022-11-10] MEDS: CEROVITE ADV FORMULA TAB PO SCH (09:02)
[2022-11-10] MEDS: PANTOprazole 40 MG TAB PO SCH ×2 (09:02→21:33)
[2022-11-10] MEDS: CYANOCOBALAMIN (B-12) 500 MCG TABLET PO SCH (09:02)
[2022-11-10] MEDS: METOPROLOL SUCC 50MG EXT REL TAB PO SCH (09:03)
[2022-11-10] MEDS: MICONAZOLE NITRATE POWDER 85 GM EXT SCH ×3 (09:03→21:35)
[2022-11-10] MEDS: TRIAMCINOLONE ACET 0.1% CR 15 GM TUBE TOP SCH ×2 (09:03→21:33)
[2022-11-10] MEDS: LORATADINE 10 MG TAB PO SCH (09:03)
[2022-11-10] MEDS: predniSONE 10 MG TABLET PO SCH ×2 (09:03→21:33)
--- NOTE | 2022-11-10 10:02 | Orthopedic Progress Note ---
Date of Service November 10, 2022 Assessment & Plan (1) Neurogenic claudication due to lumbar spinal stenosis: Plan: This time encouraged the patient to get up at the bedside and stand today. Ideally would transfer to a chair. Admission and Anticipated Discharge Date Admission Date: October 24, 2022 Subjective Patient states he feels a bit better today. He is no longer nauseated. He did not get out of bed yesterday. Physical Exam Physical Exam: On exam he exhibits reasonable strength testing lower extremities. Sensory is intact. Results & Data Vital Signs (Past 12 Hours) Vital Signs Temp Pulse Resp BP Pulse Ox O2 Del Method 11/10/22 07:26 Room Air 11/10/22 07:23 36.9 C 95 H 17 141/90 H 96 Room Air Queries Orthopedic Spine Obesity: Yes
--- NOTE | 2022-11-10 15:45 | Hospitalist Progress Note ---
Date of Service November 10, 2022 Assessment & Plan (1) Spinal stenosis: Plan: Severe foraminal and central spinal stenosis on recent MRI L-spine. Seen by Dr Velazco's team during the prior hospitalization. Surgical intervention was offered but patient had initially declined such. Now s/p lumbar decompression, fusion on 11/04/22. In preparation for possible lumbar back surgery, echo was obtained which showed mod-severe MR/TR Vascular surgery consulted to determine if IVC filter should be placed. Venous duplex ultrasound ordered that did not show any new DVT, and showed left popliteal DVT, nonocclusive. Vascular surgery does not recommend IVC filter placement. Had some intermittent hypotension from adrenal insufficiency, acute blood loss anemia post-op which is now resolved with stress dosed steroids hgb down to 11.5 from 15 preop but fairly stabilized Very weak in legs from deconditioning and essentially did not walk or exercise for 11 days in hospital prior to surgery -pain control, bowel regimen as per Ortho -PT/OT-needs rehab -stress dose steroids as below -f/u with Ortho Spine after discharge (2) HTN (hypertension): Plan: Was having elevated BPs and had amlodipine increased to 5mg BID. Then BPs low intra-op and post-op--> likely due to adrenal insufficiency and some blood loss (250mL) Also, he had been getting the wrong dose of prednisone (home dose 5mg TWICE a day) BPs now much improved with increased steroid -continue to HOLD amlodipine and lisinopril -Continue metoprolol home dose for rate control of Afib -taper stress dose steroids -on prednisone 10mg po bid --> eventual decrease back to home dose of prednisone 5mg bid but while soft blood pressures and UTI we will continue with increased dosing (3) Urinary tract infection: Plan: Had dysuria on 11/08, 2 days after Aaron removed UA abnormal and c/w UTI, UCx with 2 organismspansensitive Proteus mirabilis and gram-negative bacilli Started ceftriaxone 11/08 and tailor pending final UCx results - discussed nausea with ceftriaxone and patient ok with continuing this antibiotic (4) COVID-19: Plan: Patient initially tested + for COVID-19 in mid-September. He was hospitalized at that time and had acute hypoxic respiratory failure - treated with steroids, etc. He continues to test + on PCR testing. Interestingly he had several days of URI symptoms as well as cough/wheezing in the days leading up to this admission. His [employer] respiratory panel was negative for other viral pathogens. Additionally, pt's significant other tested negative for COVID in September multiple times. However, he tested + for COVID in the week prior to admission Either patient has been re-infected or he has had ongoing COVID symptoms since his original index admission 09/24/22. Symptoms now resolved-Was on dexamethasone for a week, completed remdesivir 5- day course -removed from isolation precautions (5) Visual hallucinations: Plan: delirium from his COVID infection? toxic from gabapentin? gabapentin was stopped and symptoms resolved recent MRI brain was normal (6) Chronic steroid use: Plan: on Prednisone 5mg bid for prostate cancer with bony mets. Was on stress dose of hydrocortisone IV post op-now weaned off and on prednisone 10mg po bid-will wean down when appropriate (7) Acute deep vein thrombosis (DVT) of distal vein of left lower extremity: Plan: 10/12/22 - doppler of LLE showed "Nonocclusive thrombus in the left popliteal vein as well as one of 2 peroneal veins." Due to low platelets, h/o hematuria, and possible chronic nature of the DVT a decision was made not to anticoagulate at that time. RLE doppler study negative for DVT this admission. Vascular surgery repeated lower extremity duplex. With L popliteal DVT considered old. No IVC filter placement planned even though multiple VTE risk factors - COVID infection, significant immobility, surgery, etc. (8) Weakness: Plan: multifactorial - recent or recurrent COVID-19 infection; deconditioning; toxic effects from narcotics/baclofen; known lumbar foraminal/spinal stenosis; adrenal crisis; other processes. MRI Brain neg for stroke. Oxycontin/oxycodone and baclofen stopped. cont PT, OT-needs rehab (9) Thrombocytopenia: Plan: Patient has been thrombocytopenic since his COVID dx in mid-September. Now resolved and was from COVID peripheral smear unrevealing immature platelet fraction returned normal making ITP unlikely. B12 low-normal; replaced. folate wnl. platelets HAVE improved while here with steroids. (10) Anxiety: Plan: Dep/anxiety Cont sertraline (11) Prostate cancer: Plan: Stage 4 with bony mets. On Zytiga and prednisone chronically. Follows with Dr Olivia Liriano - [facility]. MRI Brain neg for cva or metastatic disease (12) DMII (diabetes mellitus, type 2): Plan: a1c 7.7% 09/24/22. cont lantus cont novolog controlled (13) Atrial fibrillation: Plan: Permanent a.fib Rates controlled Cont metoprolol. He is NOT on chronic anticoagulation at baseline (records suggest due to gross hematuria??) (14) Hypercholesterolemia: Plan: Cont lipitor. (15) Balanitis: Plan: continue miconazole powder TID urethral meatus area c/w sarita Plan DVT proph-heparin SQ Dispo-continued stay on med/surg,medically stable for dc but awaiting insurance auth 11/10 [id number] completed with insurance company for inpatient rehab for [facility]. Unfortunately request was declined as it was deemed patient likely not able to complete full 3 hours of therapy every day and not enough med ical complexity. Recommendation was made for senior living facility instead. I spent over 35 minutes reviewing previous notes, reviewing prior test results, obtaining a history, conducting physical examination, counseling and educating patient, documenting in the EHR, etc.. Admission and Anticipated Discharge Date Admission Date: October 24, 2022 Subjective Overall doing well, no acute concerns today. Reports he did have nausea again this morning that he attributes to antibiotic but this has resolved. He states he does get some stomach upset from the antibiotic and had some loose stool today. Reports ongoing achiness in his legs and general deconditioning. Denies any chest pain or shortness of breath. Review of Systems Review of Systems: Per subjective Physical Exam Physical Exam: General: Well-appearing, NAD Cardiovascular: regular rate Pulmonary: CTAB, no W/R/R Integumentary: No suspicious rash or lesion on exposed skin Neurologic: AAOx3 Psychiatric: Appropriate mood/affect Results & Data Results & Data Vital Signs (Past 12 Hours) Vital Signs Temp Pulse Resp BP BP Pulse Ox O2 Del Method 11/10/22 14:13 37.0 C 94 H 17 106/69 92 Room Air 11/10/22 10:26 133/74 11/10/22 07:26 Room Air 11/10/22 07:23 36.9 C 95 H 17 141/90 H 96 Room Air Laboratory Results Reviewed updated urine culturegrowing pansensitive Proteus mirabilis and gram- negative bacilli PG Care Time/CCT Total # of Minutes Spent Total Time Spent with Patient: Total time spent is greater than 50% in coordination of care (as documented) at patient's floor/unit and/or counseling patient: Coding Level of Care Code 66662 SUB INP/OBS CARE 235MIN Diagnoses Spinal stenosis M48.00 Spinal region: unspecified HTN (hypertension) I10 Urinary tract infection N39.0 COVID-19 U07.1 Visual hallucinations R44.1 Chronic steroid use Acute deep vein thrombosis (DVT) of distal vein of left lower extremity I82.4Z2 Weakness R53.1 Thrombocytopenia D69.6 Anxiety F41.9 Prostate cancer C61 DMII (diabetes mellitus, type 2) E11.9 Atrial fibrillation I48.91 Hypercholesterolemia E78.00 Balanitis N48.1 (1) Spinal stenosis Spinal region: unspecified Qualified Code(s): M48.00 - Spinal stenosis, site unspecified
[2022-11-10] MEDS: MELATONIN 3 MG TAB PO SCH (21:32)
[2022-11-10] MEDS: cefTRIAXone SODIUM 2,000 MG in DEXTROSE 5% 50 ML IV SCH (21:36)
[2022-11-11] MEDS: HYDROCODONE/ACETAMINOPHEN 7.5/325MG TAB PO PRN ×3 (03:33→20:29)
[2022-11-11] MEDS: HEPARIN SOD 5,000 UNIT/0.5 ML VIAL SQ SCH ×3 (05:34→20:30)
[2022-11-11] MEDS: ATORVASTATIN 20 MG TAB PO SCH (08:41)
[2022-11-11] MEDS: SERTRALINE HCL 100 MG TABLET PO SCH (08:41)
[2022-11-11] MEDS: CYANOCOBALAMIN (B-12) 500 MCG TABLET PO SCH (08:42)
[2022-11-11] MEDS: CEROVITE ADV FORMULA TAB PO SCH (08:42)
[2022-11-11] MEDS: CALCIUM 600MG + VIT D 400 IU TAB PO SCH (08:42)
[2022-11-11] MEDS: PANTOprazole 40 MG TAB PO SCH ×2 (08:43→20:29)
[2022-11-11] MEDS: predniSONE 10 MG TABLET PO SCH (08:43)
[2022-11-11] MEDS: METOPROLOL SUCC 50MG EXT REL TAB PO SCH (08:43)
[2022-11-11] MEDS: LORATADINE 10 MG TAB PO SCH (08:43)
[2022-11-11] MEDS: TRIAMCINOLONE ACET 0.1% CR 15 GM TUBE TOP SCH ×2 (08:44→20:37)
[2022-11-11] MEDS: MICONAZOLE NITRATE POWDER 85 GM EXT SCH ×3 (08:45→20:34)
[2022-11-11] MEDS: ABIRATERONE ACETATE 500 MG PO SCH (08:46)
[2022-11-11] MEDS: ACETAMINOPHEN 500 MG TAB PO SCH ×3 (08:47→20:29)
[2022-11-11] MEDS: INSULIN ASPART PER UNIT CHARGE SC SCH ×4 (08:52→20:30)
[2022-11-11] MEDS: LANTUS PER UNIT CHARGE SQ SCH ×2 (08:53→20:37)
[2022-11-11] MEDS: amLODIPine BESYLATE 5 MG TAB PO SCH (11:06)
[2022-11-11] MEDS: lisinopril 20 MG TAB PO SCH (11:07)
[2022-11-11] MEDS: AMOXICILLIN 875 MG TAB PO SCH ×2 (13:17→20:29)
--- NOTE | 2022-11-11 15:59 | XRay Report ---
SINGLE VIEW CHEST CLINICAL HISTORY: Fever. FINDINGS: An AP, portable, upright chest radiograph is compared to study dated 11/02/2022. The heart i s enlarged noting atherosclerotic calcification of the thoracic aorta. The pulmonary vasculature is n oncongested. There is chronic elevation of the right hemidiaphragm with bibasilar atelectasis. No air space consolidation or large pleural effusion is identified. No pneumothorax is seen. The skeletal st ructures are osteopenic. The bony thorax is grossly intact. Arthritic change is seen in the shoulders . IMPRESSION: No active disease in the chest. ACT 112: Negative or not required by law. Electronically signed by: Jesus Alberto Briones M.D. 11/11/2022 3:57 PM
--- NOTE | 2022-11-11 17:13 | Hospitalist Progress Note ---
Date of Service November 11, 2022 Assessment & Plan (1) Spinal stenosis: Plan: Severe foraminal and central spinal stenosis on recent MRI L-spine. Status post lumbar decompression, fusion on 11/04/22. Pain control measures. OT and PT. Appreciate orthopedic spine consultation and recommendations.if IVC filter should be placed. Venous duplex ultrasound did not show new DVT but did reveal what appears to be a chronic left popliteal nonocclusive DVT. Vascular surgery does not recommend IVC filter placement. (2) HTN (hypertension): Plan: Currently on metoprolol. Amlodipine and lisinopril were held for a while but have been restarted. Prednisone is being tapered down. (3) Urinary tract infection: Plan: Proteus and E. coli isolated. Pansensitive. Rocephin has been switched to oral amoxicillin therapy. (4) COVID-19: Plan: Recent COVID infection in mid September. He continues to have positive testing. No intervention necessary at this time. (5) Visual hallucinations: Plan: Now resolved. Recent brain MRI scan was unremarkable. Uncertain if this was due to his gabapentin medication or not. Gabapentin has been discontinued. (6) Chronic steroid use: Plan: on Prednisone 5mg bid for prostate cancer with bone mets (7) Acute deep vein thrombosis (DVT) of distal vein of left lower extremity: Plan: 10/12/22 - doppler of LLE showed "Nonocclusive thrombus in the left popliteal vein as well as one of 2 peroneal veins." Due to low platelets, h/o hematuria, and possible chronic nature of the DVT a decision was made not to anticoagulate at that time. RLE doppler study negative for DVT this admission. Vascular surgery repeated lower extremity duplex. With L popliteal DVT considered old. No IVC filter placement planned (8) Weakness: Plan: multifactorial. MRI Brain neg for stroke. Continue OT and PT (9) Thrombocytopenia: Plan: thrombocytopenic since his COVID dx in mid-September. Now resolved (10) Anxiety: Plan: Stable. Cont sertraline (11) Prostate cancer: Plan: Stage 4 with bone mets. On Zytiga and prednisone chronically. Managed by Dr Olivia Liriano. MRI Brain neg for CVA or metastatic disease (12) DMII (diabetes mellitus, type 2): Plan: ADA diet. Basal Lantus therapy. Sliding scale insulin as needed (13) Atrial fibrillation: Plan: Chronic. Controlled with metoprolol. He is not on chronic systemic anticoagulation (14) Hypercholesterolemia: Plan: Stable. Cont lipitor. (15) Morbid obesity: Plan: BMI greater than 40. Significant weight loss recommended Plan [facility]ful [facility] to [facility] when arrangements are finalized. Insurance denied [facility] IPR placement. Admission and Anticipated Discharge Date Admission Date: October 24, 2022 Subjective Alert and oriented. Intermittent low-grade fever. Chest x-ray is unremarkable. Urinalysis has been repeated. He has known UTI with Proteus and E. coli. Rocephin has been switched to amoxicillin. Amlodipine and lisinopril have been restarted. Prednisone has been down titrated. [facility]ful discharge to [facility] when arrangements are finalized. Inpatient rehab at [facility] was denied by insurance. Postoperative day #7 after fusion and decompression of the lumbar spine. Review of Systems Review of Systems: Constitutional-no fever or chills. Malays however ENT-no blurred vision, no double vision, no epistaxis, no sore throat Respiratory-no cough, no wheezing, no shortness of breath Cardiac-no palpitations, no chest pain, no syncope GI-no nausea, vomiting, diarrhea, melena, hematochezia -no urinary retention, no urinary incontinence, no dysuria, no hematuria Musculoskeletal-no joint pain, no muscle tenderness Skin-no bruising, no rashes, no pruritus Neuro-no isolated weakness, no paresthesia, no weakness Psych-no depression, no anxiety Physical Exam Physical Exam: General-alert and oriented x3, obese. Intermittent low-grade fever. No chills or rigors HEENT-head atraumatic and normocephalic, pupils equal and reactive to light, extraocular muscles intact Neck-no lymphadenopathy or thyromegaly, trachea midline Chest-clear to auscultation percussion. Diminished breath sounds at the right base. No expiratory rales. No wheezing Cardiac-regular rate and rhythm, normal S1 and S2 Abdomen-normal bowel sounds, nontender, no hepatosplenomegaly Extremities-no cyanosis, clubbing, or edema Neuro-cranial nerves II through XII intact, motor and sensory function within normal limits, strength symmetrical , no focal deficits Psych-normal affect, normal mood Results & Data Results & Data Vital Signs (Past 12 Hours) Vital Signs Temp Pulse Resp BP BP Pulse Ox O2 Del Method 11/11/22 15:37 37.4 C 94 H 17 108/72 94 Room Air 11/11/22 15:21 37.4 C 113 H 18 102/71 91 Room Air 11/11/22 11:05 38 C H 99 H 17 94 Room Air 11/11/22 11:03 101 H 132/93 93 Room Air 11/11/22 08:39 92 H 149/91 H 11/11/22 07:26 37.5 C 95 H 17 136/88 94 Room Air Laboratory Results 11/08/22 07:19 11/08/22 10:30 PG Care Time/CCT Total # of Minutes Spent Total Time Spent with Patient: Total time spent is greater than 50% in coordination of care (as documented) at patient's floor/unit and/or counseling patient: Coding Level of Care Code 62367 SUB INP/OBS CARE 3/50MIN Diagnoses Spinal stenosis M48.00 Spinal region: unspecified HTN (hypertension) I10 Urinary tract infection N39.0 COVID-19 U07.1 Visual hallucinations R44.1 Chronic steroid use Acute deep vein thrombosis (DVT) of distal vein of left lower extremity I82.4Z2 Weakness R53.1 Thrombocytopenia D69.6 Anxiety F41.9 Prostate cancer C61 DMII (diabetes mellitus, type 2) E11.9 Atrial fibrillation I48.91 Hypercholesterolemia E78.00 Morbid obesity E66.01 (1) Spinal stenosis Spinal region: unspecified Qualified Code(s): M48.00 - Spinal stenosis, site unspecified
[2022-11-11 18:43] LABS: Appearance Urine Clear (Clear); Bacteria Urine Automated Negative (Negative); Bilirubin Urine Negative (Negative); Blood Urine Trace (Negative); Color Urine Dark Yellow; Glucose Urine UA Negative (Negative); Ketones Urine Negative (Negative); Leukocyte Esterase Urine Negative (Negative); Nitrite Urine Negative (Negative); Protein Urine 1+ (Negative); Urobilinogen Urine Negative (Negative)
[2022-11-11] MEDS: MELATONIN 3 MG TAB PO SCH (20:28)
[2022-11-11] MEDS: predniSONE 5 MG TAB PO SCH (20:29)
[2022-11-11] MEDS ORDERED: hydrOXYzine HCl 25 MG TAB PO STA (22:26)
[2022-11-12] MEDS: HEPARIN SOD 5,000 UNIT/0.5 ML VIAL SQ SCH (04:26)
[2022-11-12] MEDS: HYDROCODONE/ACETAMINOPHEN 7.5/325MG TAB PO PRN ×2 (04:26→10:35)
[2022-11-12 06:56] VITALS: BP 133/86; PULSE 100; RESP 16; TEMP 99; O2SAT 94
[2022-11-12 08:14] LABS: Basophils # (auto) 0.05 K/uL (0.00-0.20); Basophils % (auto) 0.5 %; Eosinophils # (auto) 0.09 K/uL (0.00-0.50); Eosinophils % (auto) 0.9 %; Hematocrit (blood only) 34.8 % (42.0-52.0); Hemoglobin 11.5 g/dl (14.0-18.0); Immature Granulocytes # (auto) 0.44 K/uL (0.01-0.20); Immature Granulocytes % (auto) 4.4 %; Lymphocytes # (auto) 0.89 K/uL (1.20-3.40); Lymphocytes % (auto) 8.8 %; Mean Corpuscular Hemoglobin 31.2 pg (25.0-34.0); Mean Corpuscular Volume 94.3 fL (80.0-100.0); Mean Platelet Volume 9.6 fL (9.4-12.4); Monocytes # (auto) 0.52 K/uL (0.11-0.59); Monocytes % (auto) 5.2 %; Neutrophils # (auto) 8.09 K/uL (1.40-6.50); Neutrophils % (auto) 80.2 %; Nucleated RBC # (auto) 0.02 K/uL (0.00-0.12); Nucleated RBC % (auto) 0.2 %; Platelet Count 162 K/uL (130-400); RDW Coefficient of Variation 14.6 % (11.5-14.5); RDW Standard Deviation 49.1 fL (36.4-46.3); Red Blood Count 3.69 M/uL (4.70-6.10); White Blood Count 10.08 K/ul (4.8-10.8)
[2022-11-12 08:30] LABS: BUN Creatinine Ratio 17.9 (10-20); Calcium 7.3 mg/dl (8.6-10.3); Creatinine Clr Calc Pharmacy 90.7 ml/min; Est GFR (African American) 100.2 ml/min; Est GFR (Non-African American) 86.5 ml/min; Potassium 4.2 mmol/L (3.5-5.1)
[2022-11-12] MEDS: LANTUS PER UNIT CHARGE SQ SCH (08:37)
[2022-11-12] MEDS: INSULIN ASPART PER UNIT CHARGE SC SCH ×2 (08:38→13:04)
[2022-11-12] MEDS: CYANOCOBALAMIN (B-12) 500 MCG TABLET PO SCH (08:42)
[2022-11-12] MEDS: METOPROLOL SUCC 50MG EXT REL TAB PO SCH (08:42)
[2022-11-12] MEDS: ABIRATERONE ACETATE 500 MG PO SCH (08:42)
[2022-11-12] MEDS: amLODIPine BESYLATE 5 MG TAB PO SCH (08:43)
[2022-11-12] MEDS: lisinopril 20 MG TAB PO SCH (08:43)
[2022-11-12] MEDS: CEROVITE ADV FORMULA TAB PO SCH (08:43)
[2022-11-12] MEDS: LORATADINE 10 MG TAB PO SCH (08:43)
[2022-11-12] MEDS: predniSONE 5 MG TAB PO SCH (08:44)
[2022-11-12] MEDS: AMOXICILLIN 875 MG TAB PO SCH (08:44)
[2022-11-12] MEDS: ATORVASTATIN 20 MG TAB PO SCH (08:44)
[2022-11-12] MEDS: SERTRALINE HCL 100 MG TABLET PO SCH (08:44)
[2022-11-12] MEDS: PANTOprazole 40 MG TAB PO SCH (08:44)
[2022-11-12] MEDS: TRIAMCINOLONE ACET 0.1% CR 15 GM TUBE TOP SCH (08:45)
[2022-11-12] MEDS: CALCIUM 600MG + VIT D 400 IU TAB PO SCH (08:45)
[2022-11-12] MEDS: ACETAMINOPHEN 500 MG TAB PO SCH ×2 (08:52→13:28)
[2022-11-12] MEDS: ONDANSETRON INJ 2 MG/ML 2 ML VIAL IV PRN (10:05)
[2022-11-12] MEDS: MICONAZOLE NITRATE POWDER 85 GM EXT SCH (10:37)
--- NOTE | 2022-11-12 12:37 | Discharge Summary ---
Date of Service November 12, 2022 Admission HPI Per Admitting Provider 76yo male with stage 4 prostate ca with mets to the bones on chronic prednisone 5mg/day and Zytiga, permanent atrial fibrillation, T2DM, HTN, DVT, lumbar spinal stenosis, and recent COVID-19 infection requiring hospitalization from 09/24 to 09/27. The patient also was hospitalized from 10/12 to 10/19 due to low back pain and b/l leg pain L>R. The leg pains were attributed to severe lumbar foraminal and central spinal stenosis as well as L3-L4 herniated disc on the left. He was seen by Dr Jose Velazco, [facility], and surgery (decompression/fusion procedure) was offered to him but he declined at that time. He discharged to [facility] on 10/19 for rehab. Records suggest that he had a URI at time of discharge and was placed on amoxicillin for such. He also discharged on oxycontin BID, oxycodone prn, and baclofen TID. While at rehab things did not go well. He was very tired & fatigued, was unable to participate in PT/OT, his appetite was not robust, and he continued with low back pain and b/l leg pain. The left leg weakness is one of his greatest concerns. During my visit with him in the ER he fell asleep multiple times. He agreed that the pain medications - although helpful - cause him to feel sleepy. He also reports wheezing, cough, congestion, and sore throat for several days. He states these symptoms started upon arrival at [facility]. No fevers to his knowledge. Principal Diagnosis Neurogenic claudication due to lumbar stenosis, status post lumbar spine decompression and fusion, urinary tract infection, nonocclusive left deep vein thrombosis Discharge Exam General-alert and oriented x3, no fevers, no chills. Obese HEENT-head atraumatic and normocephalic, pupils equal and reactive to light, extraocular muscles intact Neck-no lymphadenopathy or thyromegaly, trachea midline Chest-clear to auscultation percussion. No rales wheezing or rhonchi Cardiac-regular rate and rhythm, normal S1 and S2 Abdomen-normal bowel sounds, nontender, no hepatosplenomegaly Extremities-no cyanosis, clubbing, or edema Neuro-cranial nerves II through XII intact, motor and sensory function within normal limits, strength symmetrical , no focal deficits Psych-normal affect, normal mood Discharge Data Allergies Allergy/AdvReac Type Severity Reaction Status Date / Time cat dander Allergy Severe CAN CAUSE Verified 09/24/22 00:30 ASTHMA ATTACK-itchy eyes, congestion Consultations 10/24/22 14:49 ED Decision to Admit Stat 10/24/22 15:20 ED Decision to Admit Stat 10/25/22 08:03 Consult Orthopedic Surgery Routine 10/27/22 20:21 Consult Vascular Surgery Routine Procedures Performed Operation Date: 11/04/22 11:55 Actual Procedures p Decompression and Fusion L3-S1(Not Applicable) - Benedict Velazco DO Ordered Studies 10/24/22 12:00 US venous doppler LE RT Stat 10/24/22 18:20 MR brain wo con Urgent 10/29/22 08:20 US venous duplex leg [US venous doppler LE BI] Routine 11/04/22 11:55 FL lumbar spine 2-3V Routine Hospital Course (1) Spinal stenosis: Severe foraminal and central spinal stenosis on recent MRI L-spine. Status post lumbar decompression, fusion on 11/04/22. Pain control measures. Treated while hospitalized with OT and PT. Appreciate orthopedic spine consultation and recommendations. Venous duplex ultrasound did not show new DVT but did reveal what appears to be a chronic left popliteal nonocclusive DVT. Vascular surgery does not recommend IVC filter placement. (2) HTN (hypertension): Currently on metoprolol. Amlodipine and lisinopril were held for a while but have been restarted. Prednisone is now at his usual 5 mg twice a day dose (3) Urinary tract infection: Proteus and E. coli isolated. Pansensitive. Rocephin has been switched to oral amoxicillin therapy. (4) COVID-19: Recent COVID infection in mid September. He continues to have positive testing. No intervention necessary at this time. (5) Visual hallucinations: Now resolved. Recent brain MRI scan was unremarkable. Uncertain if this was due to his gabapentin medication or not. Gabapentin has been discontinued. (6) Chronic steroid use: on Prednisone 5mg bid for prostate cancer with bone mets (7) Acute deep vein thrombosis (DVT) of distal vein of left lower extremity: 10/12/22 - doppler of LLE showed "Nonocclusive thrombus in the left popliteal vein as well as one of 2 peroneal veins." Due to low platelets, h/o hematuria, and possible chronic nature of the DVT a decision was made not to anticoagulate at that time. RLE doppler study negative for DVT this admission. Vascular surgery repeated lower extremity duplex. With L popliteal DVT considered old. No IVC filter placement planned (8) Weakness: multifactorial. MRI Brain neg for stroke. Continue OT and PT (9) Thrombocytopenia: thrombocytopenic since his COVID dx in mid-September. Now resolved (10) Anxiety: Stable. Cont sertraline (11) Prostate cancer: Stage 4 with bone mets. On Zytiga and prednisone chronically. Managed by Dr Olivia Liriano. MRI Brain neg for CVA or metastatic disease (12) DMII (diabetes mellitus, type 2): ADA diet. Basal Lantus therapy. Sliding scale insulin as needed (13) Atrial fibrillation: Chronic. Controlled with metoprolol. He is not on chronic systemic anti coagulation (14) Hypercholesterolemia: Stable. Cont lipitor. (15) Morbid obesity: BMI greater than 40. Significant weight loss recommended Plan Discharge to [facility] todayNovember 12 Total Time Total Time Spent Total Time Spent (In Minutes): 45 minutes Discharge Plan Discharge Items Patient Disposition: Transfer [facility] Reason For Visit: R LEG PAIN Discharge Diagnosis: Neurogenic claudication, lumbar stenosis, status post lumbar spine decompression and fusion, nonocclusive left leg DVT, urinary tract infection Condition on Discharge: Fair Activity: Per Instructions section Activity Comment: Ambulate with assistance as needed Non-emergency contact: Primary Care Provider Call non-emergency contact if: you have any medication questions and your symptoms worsen Follow-up/Referrals: Kings Rios DO [Primary Care Provider] - Diet: Regular and Heart Healthy Addtl Attending Provider Instructions: ACTIVITY RECOMMENDATIONS: SELF CARE INSTRUCTIONS AFTER THORACIC/LUMBAR FUSIONS 1. You may walk to your tolerance. It is good exercise for your legs and back. Expect some back and intermittent leg aches and pains. 2. You may perform "counter-top" level activities (make a sandwich, bonnie with a project, etc.). 3. No bending or lifting of more than 10 pounds or back twisting of any nature (roll like a log when turning in bed). 4. You may ride in a car for 20-30 minutes at a time. No driving until after your first visit with your doctor. 5. Frequent changes of position and restricting sitting to 30 minutes at a time will help limit the amount of back spasms and stiffness you may experience. 6. You may discontinue the use of ambulatory aids (cane, crutches, etc.) once your strength and confidence allow. 7. You may clinical phlebotomist the shower and let water strike your incision when you arrive home at least once daily. Do not take a tub bath, sit in a hot tub or go into a swimming pool until after your first recheck in the office. SPECIAL CARE INSTRUCTIONS: VERY IMPORTANT TO READ AND REVIEW A. Your surgical incision has been closed with a cosmetic suture under the skin that will dissolve in about 6 weeks. In 14 days, you can use a pair of clean scissors and cut the suture that is left outside of the skin at the ends of your incision. 1. The small skin tapes can be removed 7 days after surgery if they have not fallen off by that point. 2. You may keep the wound open to air as much as possible to promote healing after post-op day number 5 unless told otherwise by your doctor. 3. If you think the wound looks like it is becoming infected (redness or worsening drainage) and/or you are experiencing fever, chill or worsening back pain and muscle spasms, contact the office so that we may evaluate you as soon as possible. B. Complications are uncommon, but please contact us if you have any signs or symptoms of: 1. wound infection (fever higher than 102.5 degrees F, redness, separation of wound, drainage, or increasing pain from the incision) 2. blood clots in legs (pain, swelling, redness and warmth in legs) 3. urinary tract infection (fever higher than 102.5 degrees F, burning upon urination or increased frequency of urination) 4. nerve problems (inability to walk on your toes or heels, numbness, loss of bowel or bladder control) 5. any other symptoms that concern you C. Please call the office at if you have any concerns or questions about your operation or recovery. D. No smoking! Smoking drastically decreases the chance of a solid fusion. E. Do not take any anti-inflammatory medications (Indocin, Advil, Motrin, Aspirin, Naprosyn, etc.) as these may inhibit the chance of a solid fusion. Tylenol is okay to take for pain. MANAGING PAIN AFTER SPINAL SURGERY 1. Narcotic medication is intended for short-term use and will be provided for surgical pain. Surgical pain usually lasts for a period of 4-6 weeks. Narcotic medication includes Percocet, Vicodin, Darvocet, Tylenol #3 or Lortab. 2. Longer-term pain is more appropriately treated with non-narcotic medication such as Tylenol ES. 3. Muscle spasm is not appropriately treated with narcotics. Muscle relaxers such as Soma, Flexeril or Skelaxin can be used along with Tylenol ES. 4. Remember that we all live with some "aches and pains". This is not unusual or uncommon after an injury or as we get older. a. Back pain is expected and may include muscle spasms for 4 to 6 weeks after surgery. The pain should gradually improve. If the pain worsens for no apparent reason, please contact the office. b. Intermittent leg pain may also be experienced and should not be concerned about unless it worsens for no apparent reason. If so, please contact the office. 5. We will provide appropriate medication within the normal guidelines of their prescribed use. We will also be very cautious and aware of potential abuse and extended duration of patients' medication needs. a. Pain medications are for your comfort and to assist with sleep and rest so that the tissue can heal. They are not provided in order to return to normal activity and should not be used through the day. To do so or worsening pain at night can result from ongoing tissue damage and development of tolerance to the prescribed medicine. 6. Please allow 2-3 days to process refills. Prescriptions will not be mailed but must be picked up at the office. FOLLOW UP VISIT: Keep your scheduled follow-up appointment. Any questions, please call the office at . Take amoxicillin for 3 more days Pending Studies at Discharge: No Stand-Alone Forms: My [facility] Skilled Items Patient informed of condition?: Yes DNR: Yes Discharge Level of Care: Skilled Communicable Disease: No Discharge Prognosis: Stable Lines: None Urinary Catheter: No Medications and DC Order Prescriptions: New nitroglycerin [Nitrostat] 0.4 mg Tablet, Sublingual 0.4 mg sublingual Q5M PRNQty: 0 0RF cyanocobalamin (vitamin B-12) 500 mcg Tablet 1,000 mcg PO QAM Qty: 0 0RF amoxicillin 875 mg Tablet 875 mg PO BID Qty: 0 0RF Continued Lupron Depot (4 month) 30 mg syringe kit 30 mg IM Q16W Qty: 1 0RF metoprolol succinate 200 mg tablet extended release 24 hr 200 mg PO DAILY Qty: 90 3RF amlodipine 10 mg tablet 10 mg PO QAM Qty: 90 3RF lisinopril 20 mg tablet 20 mg PO DAILY Qty: 90 3RF omeprazole 20 mg tablet,disintegrat, delay rel 20 mg PO QAM Qty: 90 3RF atorvastatin 20 mg tablet 20 mg PO QAM Qty: 90 3RF oxycodone 5 mg tablet 5 mg PO Q4H PRN (Reason: Pain) sertraline 100 mg tablet 100 mg PO QAM Qty: 90 3RF abiraterone [Zytiga] 500 mg Tablet 1,000 mg PO QAM calcium carbonate-vitamin D3 [Calcium 500 + D] 500 mg(1,250mg) -200 unit Tablet 1 tab PO QAM acetaminophen [Tylenol Extra Strength] 500 mg Tablet 1,000 mg PO DIRECTED PRN (Reason: Pain) multivitamin with minerals Tablet 1 tab PO DAILY ondansetron 4 mg Tablet,Disintegrating 4 mg PO Q8H PRN (Reason: NAUSEA/VOMITING) Xgeva 120 mg/1.7 mL (70 mg/mL) Solution 120 mg SUBCUT DIRECTED triamcinolone acetonide 0.1 % Cream 1 applic TOPICAL DIRECTED Rx Instructions: APPLY BID FRIDAY THROUGH FRIDAY TO LEG DIRECTED. amoxicillin 875 mg Tablet 875 mg PO BIDM Qty: 10 0RF loratadine [Wal-itin] 10 mg Tablet 10 mg PO DAILY Qty: 0 0RF baclofen 10 mg Tablet 10 mg PO TID Qty: 0 0RF oxycodone [OxyContin] 10 mg Tablet,Oral Only,Ext.Rel.12 Hr 10 mg PO BID Qty: 10 0RF glimepiride 2 mg tablet 2 mg PO QAM prednisone 5 mg tablet 5 mg PO BID Discharge Orders: Discharge Order (Routine); Ordered 11/12/22 Ordered By: Luiz Parish Admission Data Admit Date/Time: 10/24/22 16:02 Attending Provider: Luiz Parish Admit Provider: Patrice Banks Primary Care Provider: Kings Rios Other Providers: [facility] ; [facility] ; Keyshawn Jimenez ; Patrice Banks ; Benedict Velazco ; Jonathan Ortzi Coding Level of Care Code 89880 INP/OBS DISCH >30 MIN Diagnoses Spinal stenosis M48.00 Spinal region: unspecified HTN (hypertension) I10 Urinary tract infection N39.0 COVID-19 U07.1 Visual hallucinations R44.1 Chronic steroid use Acute deep vein thrombosis (DVT) of distal vein of left lower extremity I82.4Z2 Weakness R53.1 Thrombocytopenia D69.6 Anxiety F41.9 Prostate cancer C61 DMII (diabetes mellitus, type 2) E11.9 Atrial fibrillation I48.91 Hypercholesterolemia E78.00 Morbid obesity E66.01
== END 2022-11-12 14:38 | DRG 453 ==
LOC: ED 11:36 → EDINP 16:02 → SUATTDRO 16:02 → 2S 19:12 → 3N 11-06 15:41

== ENCOUNTER 2022-11-14 13:22 | Inpatient (IN) ==
--- NOTE | 2022-11-14 14:01 | Emergency Department Note ---
Impression & Plan Hyponatremia, Hypoalbuminemia, Adrenal insufficiency, Hypotension, Intractable pain, Altered mental status ED Provider Note NAME: VONDA GOLDEN AGE: 77 SEX: M ARRIVES VIA: Ambulance INFORMANT: Patient ED PROVIDER(S): James Baldwin MD CHIEF COMPLAINT: pain, change in mental status. PLAN: Disposition: Admit MEDICAL DECISION MAKING: The patient is a 77-year-old gentleman with a past medical history of prostate cancer with metastases to bone on Zytiga and chronic prednisone, history of lumbar spinal stenosis status post lumbar decompression at this facility on 11/04 who presents to the emergency department via EMS from his long term facility at [facility] after being discharged from this facility on Friday. The patient's who presented to the bedside reports he has been an ongoing pain since his discharge and has been confused from baseline where he is not speaking normally which he attributes to being in pain. The patient has been receiving oxycodone which has been chronically prescribed for years to the patient. He is additionally on 10 mg of baclofen 3 times daily. Per call-in the patient's pain medication were being held due to his change in mental status for the past 2 days though review of the medication administration record shows that this was being given. The patient's at the bedside understands he may have been treated for urinary tract infection and is on an antibiotic. On my evaluation the patient is uncomfortable appearing, alert to self and place but confused to situation. He moves bilateral upper extremities symmetrically with generalized weakness with 4/5 strength. He exhibits symmetric bilateral lower extremity weakness with 3/5 strength compounded by the patient's diffuse complaints of pain. The patient's surgical incision site exhibits mild amount of surrounding ecchymosis appropriate for his postop status with 1/2 cm punctate pressure ulcer developing right of his surgical site. Exhibits dry mucous membranes though with component of third spacing. EKG demonstrates atrial fibrillation without overt ST elevation or depression. Similar to prior. Chest x-ray negative for acute cardiopulmonary process. WBC within normal limits albeit with neutrophil predominance and slight left shift. H/H similar to prior. Platelets within normal limits. Chemistry without metabolic acidosis. Sodium is 126 with glucose of 191. Calcium 7.4 however with worsening hypoalbuminemia at 2.6. Phosphorus 2.0. Magnesium within normal limits. LFTs are unremarkable. CPK within normal limits. High-sensitivity troponin 17.4, within normal limits. TSH is normal. Procalcitonin is not elevated. VBG with normal pH and PCO2. UA without convincing evidence of infection. Of note, bladder scan was performed by RN and patient did have retention of >700cc of urine and so Aaron catheter was placed. Patient did feel significant improvement in his pain complaints following this. CT of the head negative for acute abnormalities. CT of the C and T-spine performed negative for acute findings. CT of the lumbar spine demonstrates expected postoperative change. CT of the chest negative for PE or focal infiltrates. CT of the and pelvis demonstrates chronic findings related to right kidney atrophy and hydroureter as well as evidence of pancreatic IPMN. Sclerotic sacral foci are also again seen consistent with patient's metastatic prostate cancer. Of note, patient's blood pressure was noted to be low with blood pressure briefly 70s/40s with MAP 50s but was fluid responsive with additional liter of IV fluid hydration. Blood pressure still soft in the 80s-90s/60s-70s with MAP in the 70s. 10 mg of IV dexamethasone initially given for stress dose steroids and subsequently given 100 mg of hydrocortisone following obtaining a random cortisol for suspected adrenal insufficiency in the setting of chronic prednisone therapy. Given the patient's presentation with hemodynamic instabil ity in setting of recent hospitalization empiric antibiotics ordered with Zosyn and daptomycin. Culture from pressure ulcer was sent though infection from this would be considered less likely primary transport driver of patient's current clinical status at this time. Patient's and decision-maker bedside agrees with plan for admission for further management. Case was d/[place] Dr. Go[place] [facility] [place] who will evaluate the patient for admission. Triage Nursing notes reviewed and agree them. Prior/outside medical records reviewed Vital Signs: reviewed Differential diagnosis: Infection, dehydration, metabolic abnormality, hypo/hyperglycemia, electrolyte disturbance, anemia, hypoxia, cardiac sources, intracerebral event, toxicologic, neurologic, as well as other pathologies. ER treatment provided: See below. Diagnostics interpreted by me: ECG: Atrial fibrillation, 99 bpm, no ectopy, T wave abnormality, no overt ST elevation or depression, QTc 482, QRS 96 Cardiac Monitoring: An order for continuous cardiac monitoring was placed and demonstrated Atrial fibrillation, 99 bpm, no ectopy. Laboratory studies: See below Imaging studies: See below Consultation(s): Case was d/w Dr. Goel [facility] [place] who will evaluate the patient for admission. HPI: The patient is a 77-year-old gentleman with a past medical history of prostate cancer with metastases to bone on Zytiga and chronic prednisone, history of lumbar spinal stenosis status post lumbar decompression at this facility on 11/04 who presents to the emergency department via EMS from his long term facility at [facility] after being discharged from this facility on Friday. The patient's who presented to the bedside reports he has been an ongoing pain since his discharge and has been confused from baseline where he is not speaking normally which he attributes to being in pain. The patient has been receiving oxycodone which has been chronically prescribed for years to the patient. He is additionally on 10 mg of baclofen 3 times daily. Per call-in the patient's pain medication were being held due to his change in mental status for the past 2 days though review of the medication administration record shows that this was being given. The patient's at the bedside understands he may have been treated for urinary tract infection and is on an antibiotic. ROS: See above HPI for pertinent positives & negatives. A total of 10 systems reviewed and were otherwise negative. VITALS:See Below PHYSICAL EXAMINATION: GENERAL: Somnolent but awake to voice, fatigued uncomfortable-appearing, in no distress HENT: Normocephalic, atraumatic. Oropharynx dry mucous membranes. EYES: Normal conjunctiva. Sclera non-icteric. NECK: Supple. No nuchal rigidity. FROM. No JVD. RESPIRATORY: Clear to auscultation. CARDIAC: Regular rate, irregular rhythm. Extremities warm and well perfused. Pulses equal. ABDOMEN: Soft, non-distended. No tenderness to palpation. No rebound or guarding. No masses. RECTAL: Deferred. MUSCULOSKELETAL: Chest examination reveals no tenderness. The back is symmetrical on inspection without obvious abnormality. There is no CVA tenderness to palpation. No joint edema. LOWER EXTREMITIES: Calves are equal size bilaterally and non-tender. No edema. No discoloration. NEURO: Alert to self and place and confused to situation. Bilateral upper extremities symmetrically with generalized weakness with 4/5 strength. He exhibits symmetric bilateral lower extremity weakness with 3/5 strength compounded by the patient's diffuse complaints of pain. The patient's surgical incision site exhibits mild amount of surrounding ecchymosis appropriate for his postop status with 1/2 cm punctate pressure ulcer developing right of his surgi andreea site. SKIN: No rash or jaundice noted. ED COURSE: Critical Care: I have personally spent greater than 45 minutes of critical care time in the direct management of this patient. This includes bedside care, interpretation of diagnostic studies, and testing, discussion with consultants, patient, and family members, and other required patient management activities. This 45 minutes is in excess of all separately billable procedures. James Baldwin MD Past Med/Surg History Medical History Ambulatory dysfunction Androgen-induced osteoporosis Anxiety Atrial fibrillation DX 2019 - FOLLOWS W/ DR. 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/ PROSTATE CA Urinary frequency Urinary incontinence Urge incontinence Urinary retention Resolved Urinary tract infection Surgical History History of cataract surgery 2018 - Bilat History of colonoscopy 2011 (due in 2021) History of prostate biopsy 2014 History of tonsillectomy as a child History of tooth extraction in age 19's S/P TURP 2014 Family History Mother , Passed age 60 of sepsis Gallbladder disease Mental disorder Psychological disorder Father , Passed age 89 of sepsis (infected bladder stones) Congestive heart failure Bladder stones Prostate cancer no treatment needed Brother Heart failure Kidney stones Kidney disease Bladder cancer, Onset Age: 75 Myocardial infarction Grandmother (Paternal) , Passed age 93 of old age Breast cancer, Onset Age: 40 double mastectomy and then did well Sister , Passed age 2 of pneumonia No problems noted. Other Has no children Denies family history of Colon cancer Ovarian cancer Social History Smoking Status: Unknown if ever smoked Tobacco Type: Cigarettes Age Started Using Tobacco: 20; Age Quit Using Tobacco: 39; packs per day: 0.5; Second Hand Exposure: No; Do You Dip or Chew Tobacco: No; Hx Alcohol Use: No Hx Substance Use: No Preferred Language: Moz[place] Communication Ability: Effective Communication Tools: Other Visual Impairment: Limited Hearing Ability: Normal Roll Sheeting Cutter Required: No Beliefs That Will Affect Care: None marital status: Current Living Situation: Family and Significant Other Current Living Situation Comment: LIVES W/ [place] - current occupational status: retired 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 Feels Safe at Home: Yes Childhood Exposure to Second-Hand Smoke: No Diet: diabetic caffeine: Yes (1 cup of coffee/day ) during the past year weight has: remained stable Dental Care, Regularly: No Physical Activity Frequency: Does not Exercise Seatbelt Use: always Sunscreen Use: Yes Assistive Devices: Walker and Other Allergies Allergies Allergy/AdvReac Type Severity Reaction Status Date / Time cat dander Allergy Severe CAN CAUSE Verified 09/24/22 00:30 ASTHMA ATTACK-itchy eyes, congestion Home Meds Home Medications Medication Instructions Recorded Confirmed abiraterone 500 mg tablet (Zytiga) 1,000 mg PO QAM 07/13/18 10/24/22 calcium carbonate 500 mg-vitamin 1 tab PO QAM 07/13/18 10/24/22 D3 5 mcg (200 unit) tablet (Calcium 500 + D) oxycodone 5 mg tablet 5 mg PO Q4H PRN Pain 03/16/20 10/24/22 acetaminophen 500 mg tablet 1,000 mg PO DIRECTED PRN Pain 09/24/22 10/24/22 (Tylenol Extra Strength) denosumab 120 mg/1.7 mL (70 mg/mL) 120 mg subcut DIRECTED 09/24/22 10/24/22 subcutaneous solution (Xgeva) multivitamin with minerals 1 tab PO DAILY 09/24/22 10/24/22 ondansetron 4 mg disintegrating 4 mg PO Q8H PRN NAUSEA/VOMITING 09/24/22 10/24/22 tablet triamcinolone acetonide 0.1 % 1 applic topical DIRECTED 09/24/22 10/24/22 topical cream glimepiride 2 mg tablet 2 mg PO QAM 10/24/22 10/24/22 prednisone 5 mg tablet 5 mg PO BID 11/06/22 11/06/22 Previous Rx's Medication Instructions Recorded leuprolide (4 month) 30 mg (4 30 mg IM Q16W #1 ea 07/28/19 month) intramuscular syringe kit (Lupron Depot) sertraline 100 mg tablet 100 mg PO QAM #90 tabs 09/01/19 metoprolol succinate 200 mg 200 mg PO DAILY #90 tabs 07/15/22 tablet,extended release 24 hr amlodipine 10 mg tablet 10 mg PO QAM #90 tabs 07/18/22 lisinopril 20 mg tablet 20 mg PO DAILY #90 tabs 07/23/22 omeprazole 20 mg delayed 20 mg PO QAM #90 tabs 09/03/22 release,disintegrating tablet atorvastatin 20 mg tablet 20 mg PO QAM #90 tabs 09/18/22 amoxicillin 875 mg tablet 875 mg PO BIDM #10 tabs 10/19/22 baclofen 10 mg tablet 10 mg PO TID #0 tabs 10/19/22 loratadine 10 mg tablet (Wal-itin) 10 mg PO DAILY #0 tabs 10/19/22 oxycodone 10 mg tablet,crush 10 mg PO BID #10 tabs 10/19/22 resistant,extended release 12 hr (OxyContin) amoxicillin 875 mg tablet 875 mg PO BID #0 tabs 11/12/22 cyanocobalamin (vitamin B-12) 500 1,000 mcg PO QAM #0 tabs 11/12/22 mcg tablet nitroglycerin 0.4 mg sublingual 0.4 mg sublingual Q5M PRN #0 tabs 11/12/22 tablet (Nitrostat) Results & Data (ED) Vital Signs Vital Signs - 24 hr 11/14/22 13:58 11/14/22 13:48 11/14/22 13:48 Pulse Rate 93 H 104 H Pulse Rate [Bilateral] 94 H Pulse Rate from SpO2 Sensor Respiratory Rate 18 18 Respiratory Depth Blood Pressure 119/96 Blood Pressure [Right Arm] 118/96 Blood Pressure Mean 103 Blood Pressure Mean [Right Arm] 103 Pulse Oximetry 98 98 Oxygen Delivery Method Sepsis Recent Fever Within 48 Hours No Sepsis New/Unexplained Change in Mental Status N/A Sepsis Action Taken by Nursing No Action Required 11/14/22 14:26 11/14/22 14:26 11/14/22 14:41 Pulse Rate Pulse Rate [Bilateral] 90 98 H Pulse Rate from SpO2 Sensor Respiratory Rate 18 18 Respiratory Depth Normal Blood Pressure Blood Pressure [Right Arm] 98/72 L Blood Pressure Mean Blood Pressure Mean [Right Arm] 80 Pulse Oximetry 98 94 94 Oxygen Delivery Method Room Air Room Air Room Air Sepsis Recent Fever Within 48 Hours Sepsis New/Unexplained Change in Mental Status Sepsis Action Taken by Nursing 11/14/22 15:11 11/14/22 15:30 11/14/22 16:00 Pulse Rate Pulse Rate [Bilateral] 92 H 94 H 78 Pulse Rate from SpO2 Sensor Respiratory Rate 22 18 Respiratory Depth Blood Pressure Blood Pressure [Right Arm] 95/72 L 105/57 L 78/57 L Blood Pressure Mean Blood Pressure Mean [Right Arm] 79 73 64 Pulse Oximetry 93 92 Oxygen Delivery Method Room Air Room Air Sepsis Recent Fever Within 48 Hours Sepsis New/Unexplained Change in Mental Status Sepsis Action Taken by Nursing 11/14/22 16:02 11/14/22 16:11 11/14/22 13:57 Pulse Rate 98 H Pulse Rate [Bilateral] Pulse Rate from SpO2 Sensor Respiratory Rate 15 Respiratory Depth Blood Pressure Blood Pressure [Right Arm] 85/63 L 87/55 L Blood Pressure Mean Blood Pressure Mean [Right Arm] 70 65 Pulse Oximetry Oxygen Delivery Method Sepsis Recent Fever Within 48 Hours Sepsis New/Unexplained Change in Mental Status Sepsis Action Taken by Nursing 11/14/22 14:00 11/14/22 14:15 11/14/22 14:27 Pulse Rate 96 H 94 H 101 H Pulse Rate [Bilateral] Pulse Rate from SpO2 Sensor 111 H Respiratory Rate 17 18 24 Respiratory Depth Blood Pressure Blood Pressure [Right Arm] Blood Pressure Mean Blood Pressure Mean [Right Arm] Pulse Oximetry 92 Oxygen Delivery Method Sepsis Recent Fever Within 48 Hours Sepsis New/Unexplained Change in Mental Status Sepsis Action Taken by Nursing 11/14/22 14:27 11/14/22 14:30 11/14/22 14:45 Pulse Rate 98 H 100 H Pulse Rate [Bilateral] Pulse Rate from SpO2 Sensor 98 H 97 H Respiratory Rate 17 20 Respiratory Depth Blood Pressure 98/72 L Blood Pressure [Right Arm] Blood Pressure Mean 80 Blood Pressure Mean [Right Arm] Pulse Oximetry 95 90 Oxygen Delivery Method Sepsis Recent Fever Within 48 Hours Sepsis New/Unexplained Change in Mental Status Sepsis Action Taken by Nursing 11/14/22 15:00 11/14/22 15:14 11/14/22 15:14 Pulse Rate 90 88 Pulse Rate [Bilateral] Pulse Rate from SpO2 Sensor 98 H 99 H Respiratory Rate 21 28 H Respiratory Depth Blood Pressure 95/72 L Blood Pressure [Right Arm] Blood Pressure Mean 80 Blood Pressure Mean [Right Arm] Pulse Oximetry 89 L 88 L Oxygen Delivery Method Sepsis Recent Fever Within 48 Hours Sepsis New/Unexplained Change in Mental Status Sepsis Action Taken by Nursing 11/14/22 15:15 11/14/22 15:30 11/14/22 15:32 Pulse Rate 95 H 88 89 Pulse Rate [Bilateral] Pulse Rate from SpO2 Sensor 93 H 85 88 Respiratory Rate 20 16 18 Respiratory Depth Blood Pressure Blood Pressure [Right Arm] Blood Pressure Mean Blood Pressure Mean [Right Arm] Pulse Oximetry 94 92 94 Oxygen Delivery Method Sepsis Recent Fever Within 48 Hours Sepsis New/Unexplained Change in Mental Status Sepsis Action Taken by Nursing 11/14/22 15:32 11/14/22 15:45 11/14/22 15:45 Pulse Rate 98 H Pulse Rate [Bilateral] Pulse Rate from SpO2 Sensor 93 H Respiratory Rate 17 Respiratory Depth Blood Pressure 105/57 L 121/71 Blood Pressure [Right Arm] Blood Pressure Mean 60 80 Blood Pressure Mean [Right Arm] Pulse Oximetry 93 Oxygen Delivery Method Sepsis Recent Fever Within 48 Hours Sepsis New/Unexplained Change in Mental Status Sepsis Action Taken by Nursing 11/14/22 16:00 11/14/22 16:00 11/14/22 16:02 Pulse Rate 96 H 83 Pulse Rate [Bilateral] Pulse Rate from SpO2 Sensor 93 H 92 H Respiratory Rate 20 13 Respiratory Depth Blood Pressure 78/57 L Blood Pressure [Right Arm] Blood Pressure Mean 61 Blood Pressure Mean [Right Arm] Pulse Oximetry 94 91 Oxygen Delivery Method Sepsis Recent Fever Within 48 Hours Sepsis New/Unexplained Change in Mental Status Sepsis Action Taken by Nursing 11/14/22 16:02 11/14/22 16:09 11/14/22 16:09 Pulse Rate 82 Pulse Rate [Bilateral] Pulse Rate from SpO2 Sensor 84 Respiratory Rate 20 Respiratory Depth Blood Pressure 85/63 L 87/55 L Blood Pressure [Right Arm] Blood Pressure Mean 67 60 Blood Pressure Mean [Right Arm] Pulse Oximetry 94 Oxygen Delivery Method Sepsis Recent Fever Within 48 Hours Sepsis New/Unexplained Change in Mental Status Sepsis Action Taken by Nursing 11/14/22 16:13 11/14/22 16:13 11/14/22 16:15 Pulse Rate 95 H 85 Pulse Rate [Bilateral] Pulse Rate from SpO2 Sensor 89 91 H Respiratory Rate 21 23 Respiratory Depth Blood Pressure 88/62 L Blood Pressure [Right Arm] Blood Pressure Mean 70 Blood Pressure Mean [Right Arm] Pulse Oximetry 95 92 Oxygen Delivery Method Sepsis Recent Fever Within 48 Hours Sepsis New/Unexplained Change in Mental Status Sepsis Action Taken by Nursing 11/14/22 16:16 11/14/22 16:16 11/14/22 16:19 Pulse Rate 92 H Pulse Rate [Bilateral] Pulse Rate from SpO2 Sensor 89 101 H Respiratory Rate 28 H Respiratory Depth Blood Pressure 89/59 L Blood Pressure [Right Arm] Blood Pressure Mean 62 Blood Pressure Mean [Right Arm] Pulse Oximetry 95 86 L Oxygen Delivery Method Sepsis Recent Fever Within 48 Hours Sepsis New/Unexplained Change in Mental Status Sepsis Action Taken by Nursing 11/14/22 16:45 11/14/22 16:46 11/14/22 17:00 Pulse Rate 89 Pulse Rate [Bilateral] Pulse Rate from SpO2 Sensor Respiratory Rate 18 28 H Respiratory Depth Blood Pressure 85/68 L Blood Pressure [Right Arm] Blood Pressure Mean 73 Blood Pressure Mean [Right Arm] Pulse Oximetry 91 Oxygen Delivery Method Sepsis Recent Fever Within 48 Hours Sepsis New/Unexplained Change in Mental Status Sepsis Action Taken by Nursing 11/14/22 17:14 11/14/22 17:14 11/14/22 17:15 Pulse Rate 93 H 89 Pulse Rate [Bilateral] Pulse Rate from SpO2 Sensor 93 H 91 H Respiratory Rate 22 19 Respiratory Depth Blood Pressure 71/41 L Blood Pressure [Right Arm] Blood Pressure Mean 50 Blood Pressure Mean [Right Arm] Pulse Oximetry 89 L 91 Oxygen Delivery Method Sepsis Recent Fever Within 48 Hours Sepsis New/Unexplained Change in Mental Status Sepsis Action Taken by Nursing 11/14/22 17:16 11/14/22 17:16 11/14/22 17:19 Pulse Rate 91 H 98 H Pulse Rate [Bilateral] Pulse Rate from SpO2 Sensor 95 H 92 H Respiratory Rate 18 18 Respiratory Depth Blood Pressure 62/40 L Blood Pressure [Right Arm] Blood Pressure Mean 47 Blood Pressure Mean [Right Arm] Pulse Oximetry 93 92 Oxygen Delivery Method Sepsis Recent Fever Within 48 Hours Sepsis New/Unexplained Change in Mental Status Sepsis Action Taken by Nursing 11/14/22 17:19 11/14/22 17:27 11/14/22 17:27 Pulse Rate 86 Pulse Rate [Bilateral] Pulse Rate from SpO2 Sensor 88 Respiratory Rate 17 Respiratory Depth Blood Pressure 71/45 L 89/54 L Blood Pressure [Right Arm] Blood Pressure Mean 54 63 Blood Pressure Mean [Right Arm] Pulse Oximetry 92 Oxygen Delivery Method Sepsis Recent Fever Within 48 Hours Sepsis New/Unexplained Change in Mental Status Sepsis Action Taken by Nursing 11/14/22 17:30 11/14/22 17:30 11/14/22 17:57 Pulse Rate 88 87 Pulse Rate [Bilateral] Pulse Rate from SpO2 Sensor 94 H Respiratory Rate 18 Respiratory Depth Blood Pressure 88/76 L Blood Pressure [Right Arm] Blood Pressure Mean 80 Blood Pressure Mean [Right Arm] Pulse Oximetry 87 L Oxygen Delivery Method Sepsis Recent Fever Within 48 Hours Sepsis New/Unexplained Change in Mental Status Sepsis Action Taken by Nursing Laboratory Data 11/14/22 14:50 11/14/22 14:50 Lab Results 11/14/22 11/14/22 11/14/22 Range/Units 14:50 14:50 14:50 WBC 10.52 (4.8-10.8) K/ul RBC 3.52 L (4.70-6.10) M/uL Hgb 10.9 L (14.0-18.0) g/dl Hct 32.1 L (42.0-52.0) % MCV 91.2 (80.0-100.0) fL MCH 31.0 (25.0-34.0) pg MCHC 34.0 (32.0-36.0) g/dL RDW Std Deviation 48.3 H (36.4-46.3) fL RDW Coeff of Tramaine 14.8 H (11.5-14.5) % Plt Count 195 (130-400) K/uL MPV 9.5 (9.4-12.4) fL Immature Gran % (Auto) 4.7 % Neut % (Auto) 83.6 % Lymph % (Auto) 5.2 % [place] % (Auto) 5.3 % Eos % (Auto) 0.8 % Baso % (Auto) 0.4 % Neut # (Auto) 8.80 H (1.40-6.50) K/uL Lymph # (Auto) 0.55 L (1.20-3.40) K/uL [place] # (Auto) 0.56 (0.11-0.59) K/uL Eos # (Auto) 0.08 (0.00-0.50) K/uL Baso # (Auto) 0.04 (0.00-0.20) K/uL Immature Gran # (Auto) 0.49 H (0.01-0.20) K/uL Absolute Nucleated RBC 0.02 (0.00-0.12) K/uL Nucleated RBC % (auto) 0.2 % PT (9.0-12.0) Seconds INR (0.9-1.1) APTT (21.0-31.0) Seconds PTT Ratio VBG pH (7.36-7.41) VBG pCO2 (38-50) mmHg VBG pO2 mmHg VBG HCO3 mmol/L VBG O2 Saturation % VBG Base Excess mEq/L Sodium 126 L (136-145) mmol/L Potassium 4.3 (3.5-5.1) mmol/L Chloride 95 L (98-107) mmol/L Carbon Dioxide 24 (21-32) mmol/L Anion Gap 7 (3-11) BUN 16 (6-23) mg/dl Creatinine 0.85 (0.6-1.4) mg/dl Est Cr Clr Drug Dosing 94.8 ml/min Est GFR ( Amer) 96.7 ml/min Est GFR (Non-Af Amer) 83.5 ml/min BUN/Creatinine Ratio 18.8 (10-20) Glucose 191 H (70-99(Fasting)) mg/dl Lactate 1.7 (0.4-2.0) mmol/L Calcium 7.4 L (8.6-10.3) mg/dl Phosphorus 2.0 L (2.5-4.9) mg/dl Magnesium 1.8 (1.7-2.4) mg/dl Total Bilirubin 0.8 (0.2-1.0) mg/dl Direct Bilirubin 0.2 (0-0.2) mg/dl AST 29 (13-39) U/L ALT 33 (7-52) U/L Alkaline Phosphatase 71 (34-104) U/L Total Creatine Kinase 55 (30-223) U/L Troponin I High Sens 17.4 (0-20) pg/ml Total Protein 5.4 L (6.0-8.3) gm/dl Albumin 2.6 L (3.4-5.0) gm/dl Procalcitonin (0-0.5) ng/ml TSH 2.833 (0.300-4.500) uIu/ml Random Cortisol mcg/dl Urine Color Urine Appearance (Clear) Urine pH (4.5-7.5) Ur Specific [place] (1.000-1.030) Urine Protein (Negative) Urine Glucose (UA) (Negative) Urine Ketones (Negative) Urine Blood (Negative) Urine Nitrite (Negative) Urine Bilirubin (Negative) Urine Urobilinogen (Negative) Ur Leukocyte Esterase (Negative) Urine WBC (Auto) (0-5) /hpf Urine RBC (Auto) (0-4) /hpf U Hyaline Cast (Auto) (0-5) /lpf U Epithel Cells (Auto) (0-5) /lpf Urine Bacteria (Auto) (Negative) 11/14/22 11/14/22 11/14/22 Range/Units 14:50 14:50 14:50 WBC (4.8-10.8) K/ul RBC (4.70-6.10) M/uL Hgb (14.0-18.0) g/dl Hct (42.0-52.0) % MCV (80.0-100.0) fL MCH (25.0-34.0) pg MCHC (32.0-36.0) g/dL RDW Std Deviation (36.4-46.3) fL RDW Coeff of Tramaine (11.5-14.5) % Plt Count (130-400) K/uL MPV (9.4-12.4) fL Immature Gran % (Auto) % Neut % (Auto) % Lymph % (Auto) % [place] % (Auto) % Eos % (Auto) % Baso % (Auto) % Neut # (Auto) (1.40-6.50) K/uL Lymph # (Auto) (1.20-3.40) K/uL [place] # (Auto) (0.11-0.59) K/uL Eos # (Auto) (0.00-0.50) K/uL Baso # (Auto) (0.00-0.20) K/uL Immature Gran # (Auto) (0.01-0.20) K/uL Absolute Nucleated RBC (0.00-0.12) K/uL Nucleated RBC % (auto) % PT 11.4 (9.0-12.0) Seconds INR 1.0 (0.9-1.1) APTT 30.9 (21.0-31.0) Seconds PTT Ratio 1.1 VBG pH 7.39 (7.36-7.41) VBG pCO2 41 (38-50) mmHg VBG pO2 < 20 mmHg VBG HCO3 25 mmol/L VBG O2 Saturation < 60.0 % VBG Base Excess -0.2 mEq/L Sodium (136-145) mmol/L Potassium (3.5-5.1) mmol/L Chloride (98-107) mmol/L Carbon Dioxide (21-32) mmol/L Anion Gap (3-11) BUN (6-23) mg/dl Creatinine (0.6-1.4) mg/dl Est Cr Clr Drug Dosing ml/min Est GFR ( Amer) ml/min Est GFR (Non-Af Amer) ml/min BUN/Creatinine Ratio (10-20) Glucose (70-99(Fasting)) mg/dl Lactate (0.4-2.0) mmol/L Calcium (8.6-10.3) mg/dl Phosphorus (2.5-4.9) mg/dl Magnesium (1.7-2.4) mg/dl Total Bilirubin (0.2-1.0) mg/dl Direct Bilirubin (0-0.2) mg/dl AST (13-39) U/L ALT (7-52) U/L Alkaline Phosphatase (34-104) U/L Total Creatine Kinase (30-223) U/L Troponin I High Sens (0-20) pg/ml Total Protein (6.0-8.3) gm/dl Albumin (3.4-5.0) gm/dl Procalcitonin 0.23 (0-0.5) ng/ml TSH (0.300-4.500) uIu/ml Random Cortisol mcg/dl Urine Color Urine Appearance (Clear) Urine pH (4.5-7.5) Ur Specific [place] (1.000-1.030) Urine Protein (Negative) Urine Glucose (UA) (Negative) Urine Ketones (Negative) Urine Blood (Negative) Urine Nitrite (Negative) Urine Bilirubin (Negative) Urine Urobilinogen (Negative) Ur Leukocyte Esterase (Negative) Urine WBC (Auto) (0-5) /hpf Urine RBC (Auto) (0-4) /hpf U Hyaline Cast (Auto) (0-5) /lpf U Epithel Cells (Auto) (0-5) /lpf Urine Bacteria (Auto) (Negative) 11/14/22 11/14/22 Range/Units 14:50 17:10 WBC (4.8-10.8) K/ul RBC (4.70-6.10) M/uL Hgb (14.0-18.0) g/dl Hct (42.0-52.0) % MCV (80.0-100.0) fL MCH (25.0-34.0) pg MCHC (32.0-36.0) g/dL RDW Std Deviation (36.4-46.3) fL RDW Coeff of Tramaine (11.5-14.5) % Plt Count (130-400) K/uL MPV (9.4-12.4) fL Immature Gran % (Auto) % Neut % (Auto) % Lymph % (Auto) % [place] % (Auto) % Eos % (Auto) % Baso % (Auto) % Neut # (Auto) (1.40-6.50) K/uL Lymph # (Auto) (1.20-3.40) K/uL [place] # (Auto) (0.11-0.59) K/uL Eos # (Auto) (0.00-0.50) K/uL Baso # (Auto) (0.00-0.20) K/uL Immature Gran # (Auto) (0.01-0.20) K/uL Absolute Nucleated RBC (0.00-0.12) K/uL Nucleated RBC % (auto) % PT (9.0-12.0) Seconds INR (0.9-1.1) APTT (21.0-31.0) Seconds PTT Ratio VBG pH (7.36-7.41) VBG pCO2 (38-50) mmHg VBG pO2 mmHg VBG HCO3 mmol/L VBG O2 Saturation % VBG Base Excess mEq/L Sodium (136-145) mmol/L Potassium (3.5-5.1) mmol/L Chloride (98-107) mmol/L Carbon Dioxide (21-32) mmol/L Anion Gap (3-11) BUN (6-23) mg/dl Creatinine (0.6-1.4) mg/dl Est Cr Clr Drug Dosing ml/min Est GFR ( Amer) ml/min Est GFR (Non-Af Amer) ml/min BUN/Creatinine Ratio (10-20) Glucose (70-99(Fasting)) mg/dl Lactate (0.4-2.0) mmol/L Calcium (8.6-10.3) mg/dl Phosphorus (2.5-4.9) mg/dl Magnesium (1.7-2.4) mg/dl Total Bilirubin (0.2-1.0) mg/dl Direct Bilirubin (0-0.2) mg/dl AST (13-39) U/L ALT (7-52) U/L Alkaline Phosphatase (34-104) U/L Total Creatine Kinase (30-223) U/L Troponin I High Sens (0-20) pg/ml Total Protein (6.0-8.3) gm/dl Albumin (3.4-5.0) gm/dl Procalcitonin (0-0.5) ng/ml TSH (0.300-4.500) uIu/ml Random Cortisol 5.53 mcg/dl Urine Color Dark Yellow Urine Appearance Cloudy A (Clear) Urine pH 6.0 (4.5-7.5) Ur Specific [place] 1.030 (1.000-1.030) Urine Protein 1+ H (Negative) Urine Glucose (UA) Trace H (Negative) Urine Ketones Trace H (Negative) Urine Blood Negative (Negative) Urine Nitrite Negative (Negative) Urine Bilirubin 1+ H (Negative) Urine Urobilinogen Negative (Negative) Ur Leukocyte Esterase Negative (Negative) Urine WBC (Auto) 1-5 (0-5) /hpf Urine RBC (Auto) 0-4 (0-4) /hpf U Hyaline Cast (Auto) 1-5 (0-5) /lpf U Epithel Cells (Auto) 10-20 H (0-5) /lpf Urine Bacteria (Auto) Negative (Negative) Administered Medications Sodium Chloride (Nss) 500 mls @ 125 mls/hr IV .Q4H MIESHA Stop: 12/14/22 14:44 Last Admin: 11/14/22 18:09 Dose: 125 mls/hr Documented By: Infusion: 11/14/22 18:09 Dose: 125 mls/hr Documented By: Admin: 11/14/22 15:20 Dose: 125 mls/hr Documented By: ARNOL Discontinued Medications Dexamethasone Sodium Phosphate (DexamethasonePf 10 Mg/Ml Vial) 10 mg IV NOW ONE Stop: 11/14/22 17:00 Last Admin: 11/14/22 17:34 Dose: 10 mg Documented By: YOLA Hydrocortisone Sodium Succinate (Hydrocortisone Sod Succinate 100 Mg/2 Ml Vial) 100 mg IV NOW STA Stop: 11/14/22 18:02 Last Admin: 11/14/22 18:11 Dose: 100 mg Documented By: YOLA Acetaminophen (Ofirmev) 1,000 mg in 100 mls @ 400 mls/hr IV NOW STA Stop: 11/14/22 14:47 Last Infusion: 11/14/22 15:42 Dose: 0 mls/hr Documented By: Admin: 11/14/22 15:19 Dose: 400 mls/hr Documented By: ARNOL Sodium Chloride (Nss) 1,000 mls @ 999 mls/hr IV .Q1H1M ONE Stop: 11/14/22 17:58 Last Admin: 11/14/22 17:28 Dose: 999 mls/hr Documented By: YOLA Ioversol (Optiray 320 125ml) 119 ml IV ONCE ONE Stop: 11/14/22 16:29 Last Admin: 11/14/22 16:30 Dose: 119 ml Documented By: KELTON Imaging Data Radiologist's Impression: Chest CTA 11/14/22 14:24 CT angio chest PE protocol CLINICAL HISTORY: Pain, sob, pr CA, r/o PE TECHNIQUE: Multidetector row helical CT of the chest was performed with angiog raphic protocol. Coronal and sagittal reformations were obtained. Coronal and sagittal MIPS were obtained from the axial data set and were submitted for review. Automated dose lowering techniques and/or adjustment according to patient size were utilized for this exam. Comparison: Comparison is made to CTA chest 10/08/2021 FINDINGS: Lungs and pleura: Interstitial thickening is seen with traction bronchiectasis in the lower lungs. Heart and pericardium: Heart size is normal. No pericardial effusion. Vessels: Evaluation for pulmonary embolism is limited due to artifacts from patient positioning.. No evidence of central, lobar, or segmental embolus. Mediastinum and nirmala: Unremarkable. Chest wall and lower neck: Unremarkable. Abdomen: Unremarkable. Bones: Degenerative changes of the thoracic spine. Old healed rib fractures are seen. IMPRESSION: 1. No acute abnormality and in particular no evidence of pulmonary embolus within the limits of artifacts due to patient positioning. 2. Interstitial lung disease and atelectasis without evidence of pneumonia. ACT 112: Negative or not required by law. Electronically signed by: Paulino Saha M.D. 11/14/2022 5:[address] 11/14/22 14:24 CT SCAN OF THE BRAIN WITHOUT IV CONTRAST CLINICAL HISTORY: Change in mental status. COMPARISON STUDY: CT of the brain dated 08/14/2022. MRI of the brain dated 10/24/2022. TECHNIQUE: Unenhanced axial CT scan of the brain is performed from the vertex to the skull base. A dose lowering technique was utilized adhering to the principles of ALARA. The patient was scanned twice due to motion artifact. FINDINGS: Brain parenchyma: There is age-related involutional change noting moderate subcortical and periventricular microangiopathic disease. There is no hemorrhage, mass effect, or evidence of acute territorial ischemia by CT criteria. Prado-white matter differentiation is preserved. No extra-axial fluid collection is seen. Ventricles, sulci, cisterns: Prominent secondary to involutional change. Intracranial vasculature: There is atherosclerotic calcification of the cavernous carotid arteries. Calvarium: Unremarkable. Sinuses and mastoids: Mild mucosal thickening seen within the maxillary, ethmoid, and frontal sinuses. The mastoid air cells are well pneumatized. Orbits: The bony orbits are grossly intact. There are bilateral ocular lens implants. IMPRESSION: There is no hemorrhage, mass effect, or evidence of acute territorial ischemia by CT criteria noting a motion compromised examination. ACT 112: Negative or not required by law. Electronically signed by: Jesus Alberto Briones M.D. 11/14/2022 4:43 PM Chest X-Ray 11/14/22 14:26 SINGLE VIEW CHEST CLINICAL HISTORY: Sepsis. FINDINGS: 2 AP, portable, upright chest radiographs are compared to study dated 11/11/2022. The examination is degraded by portable technique and patient rotation. The heart is enlarged noting atherosclerotic calcification of the thoracic aorta. The pulmonary vasculature is noncongested. There is chronic elevation of the right hemidiaphragm with bibasilar scarring/ atelectasis. No airspace consolidation or large pleural effusion is identified. No pneumothorax is seen. The skeletal structures are osteopenic. The bony thorax is grossly intact. IMPRESSION: No acute cardiopulmonary abnormality is identified. ACT 112: Negative or not required by law. Electronically signed by: Jesus Alberto Briones M.D. 11/14/2022 3:30 PM Abdomen/Pelvis CT 11/14/22 14:28 CT abd pelvis IV con only CLINICAL HISTORY: back pain, s/p decompress TECHNIQUE: Helical axial images of the abdomen and pelvis were obtained and displayed. Automated dose lowering techniques and/or adjustment according to patient size were utilized for this exam. This exam was performed with intravenous contrast. COMPARISON: Comparison is made to CT abdomen pelvis 10/08/2021 FINDINGS: Lower chest: For findings above the diaphragm, please see CT chest performed same day. Liver: Subcentimeter hypodensities in the liver are too small to characterize. Gallbladder and biliary tree: No calcified gallstones. Normal caliber wall. No intra- or extrahepatic biliary ductal dilation. Pancreas: Redemonstration of cystic lesions in the pancreatic tail which may represent IPMN. Spleen: Unremarkable. Adrenals: Unremarkable. Kidneys and ureters: Atrophic right kidney with hydronephrosis/hydroureter noted. Bladder: Unremarkable. Reproductive organs: Unremarkable. Bowel: The appendix is normal. Lymph nodes Retroperitoneal: Unremarkable. Pelvic: Unremarkable. Mesenteric: Unremarkable. Peritoneum: Normal. Vessels: Unremarkable. Abdominal wall: Unremarkable. Bones: Degenerative changes in the visualized spine. Placement of posterior fixation hardware spanning L3-S1 with associated soft tissue swelling and subcutaneous emphysema. A few sclerotic foci are again seen most prominently in the lower sacrum. IMPRESSION: 1. Postsurgical changes of decompression and fusion of the lower lumbar spine. 2. Redemonstration of a few sclerotic foci most prominently in the sacrum. 3. Atrophic right kidney with severe right hydroureteronephrosis again seen. Redemonstration of cystic lesion in tail which may represent IPMN. ACT 112: Negative or not required by law. Electronically signed by: Paulino Saha M.D. 11/14/2022 5:[address] 11/14/22 14:28 CT SCAN OF THE CERVICAL SPINE CLINICAL HISTORY: Neck pain. COMPARISON STUDY: CT of the cervical spine dated 08/14/2022 TECHNIQUE: CT scan of the cervical spine is performed from the skull base to the upper thoracic spine. Images are reviewed in the axial, sagittal, and coronal planes. IV contrast was not administered for this examination. A dose lowering technique was utilized adhering to the principles of ALARA. FINDINGS: Skeletal structures: The skeletal structures are osteopenic. There is no evidence of fracture or subluxation involving the cervical spine. Vertebral body height and alignment are maintained. There is straightening of the cervical lordosis. Anterior osteophytes are seen throughout. Apparent mild spinal curvature is likely positional. The odontoid process and lateral masses are intact. The atlantoaxial articulation is preserved noting nonproductive degenerative change. The spinous processes appear intact. There is mild/moderate multilevel cervical spondylosis. Uncovertebral facet arthropathy contribute to neural foraminal narrowing at several levels. Intervertebral discs: There is moderate to severe disc space narrowing at C5-C6. Mild to moderate narrowing is seen at the remaining cervical levels. Central canal: Grossly patent. Soft tissues: The prevertebral and paraspinous soft tissues are within normal limits. There is atherosclerotic calcification of the carotid bulbs. Calvarium: The visualized calvarium at the skull base appears intact. Brain parenchyma: Partially visualized brain parenchyma at the skull base is within normal limits. Sinuses and mastoids: The visualized paranasal sinuses are clear. There is trace right mastoid effusion. The left mastoid air cells are well pneumatized. Lung apices: Clear as visualized. IMPRESSION: 1. No acute bony abnormality is seen involving the cervical spine. 2. Osteopenia and spondylotic change as above. ACT 112: Negative or not required by law. Electronically signed by: Jesus Alberto Briones M.D. 11/14/2022 4:[address] 11/14/22 14:28 CT lumbar spine w con CLINICAL HISTORY: neck back pain, Pr CA mets TECHNIQUE: Multidetector row helical CT of the lumbar spine was performed without administration of intravenous contrast. Coronal and sagittal reformations were obtained. Automated dose lowering techniques and/or adjustment according to patient size were utilized for this exam. CT DOSE: 5216.22 mGy.cm Comparison: Comparison is made to MRI lumbar spine 10/13/[address] lumbar spine 10/12/2022 FINDINGS: Posterior fixation hardware spans L3-S1. Soft tissue stranding and emphysema in the joint space is noted. No acute fractures are identified. Vertebral body heights and disk spaces are well maintained. Vertebral body alignment is within normal limits. Partial visualization of right hydronephrosis/hydroureter. IMPRESSION: Interval placement of posterior fixation hardware with expected postsurgical soft tissue swelling and subcutaneous emphysema. No acute fractures are seen. ACT 112: Negative or not required by law. Electronically signed by: Paulino Saha M.D. 11/14/2022 5:[address] 11/14/22 14:28 CT SCAN OF THE THORACIC SPINE WITH IV CONTRAST CLINICAL HISTORY: Neck pain. Thoracic back pain. Prostate cancer. COMPARISON STUDY: MRI of the thoracic spine dated 09/02/2019. PET CT dated 09/18/2022. TECHNIQUE: Following the IV administration of 119 cc of Optiray 320, CT scan of the thoracic spine was performed from the lower cervical spine to the upper lumbar spine. Images are reviewed in the axial, sagittal, and coronal planes. IV contrast was administered without complication. A dose lowering technique was utilized adhering to the principles of ALARA. FINDINGS: The skeletal structures are osteopenic. There is no evidence of fracture or malalignment involving the thoracic spine. Vertebral body height and alignment are maintained. Small anterior osteophytes are seen throughout. The transverse and spinous processes appear intact. No lytic or blastic lesions are identified throughout the thoracic spine. There is mild multilevel degenerative disc space narrowing. There is no CT evidence of large disc herniation or high- grade central canal stenosis. The paraspinous soft tissues are normal as imaged. The visualized posterior ribs appear intact. The heart is enlarged. The coronary arteries are densely calcified. Dependent atelectasis is noted at the lung bases. IMPRESSION: 1. No acute bony abnormality is seen involving the thoracic spine. 2. No lytic or blastic lesion is seen. ACT 112: Negative or not required by law. Dictated: 11/14/2022 5:10 PM Transcribed: 11/14/2022 5:25 PM Urmila [id number] ISAAC_Shan [id number] Electronically signed by: Jesus Alberto Briones M.D. 11/14/2022 5:28 PM Discharge Plan Visit Data Chief Complaint: Pain (Generalized) Stated Complaint: GENERALIZED PAIN ED Provider: James Baldwin Discharge Problem: Hyponatremia, Hypoalbuminemia, Adrenal insufficiency, Hypotension, Intractable pain, Altered mental status Forms Stand Alone Forms: [facility] Prescriptions Prescriptions: No Action Lupron Depot (4 month) 30 mg syringe kit 30 mg IM Q16W Qty: 1 0RF metoprolol succinate 200 mg tablet extended release 24 hr 200 mg PO DAILY Qty: 90 3RF amlodipine 10 mg tablet 10 mg PO QAM Qty: 90 3RF lisinopril 20 mg tablet 20 mg PO DAILY Qty: 90 3RF omeprazole 20 mg tablet,disintegrat, delay rel 20 mg PO QAM Qty: 90 3RF oxycodone 5 mg tablet 5 mg PO Q4H PRN (Reason: Pain) sertraline 100 mg tablet 100 mg PO QAM Qty: 90 3RF abiraterone [Zytiga] 500 mg Tablet 1,000 mg PO QAM calcium carbonate-vitamin D3 [Calcium 500 + D] 500 mg(1,250mg) -200 unit Tablet 1 tab PO QAM acetaminophen [Tylenol Extra Strength] 500 mg Tablet 1,000 mg PO DIRECTED PRN (Reason: Pain) multivitamin with minerals Tablet 1 tab PO DAILY ondansetron 4 mg Tablet,Disintegrating 4 mg PO Q8H PRN (Reason: NAUSEA/VOMITING) Xgeva 120 mg/1.7 mL (70 mg/mL) Solution 120 mg SUBCUT DIRECTED triamcinolone acetonide 0.1 % Cream 1 applic TOPICAL .AMPM Rx Instructions: APPLY TO LEG TOPICALLY EVERY DAY AND EVENING SHIFT FOR RASH. loratadine [Wal-itin] 10 mg Tablet 10 mg PO DAILY Qty: 0 0RF baclofen 10 mg Tablet 10 mg PO TID Qty: 0 0RF oxycodone [OxyContin] 10 mg Tablet,Oral Only,Ext.Rel.12 Hr 10 mg PO BID Qty: 10 0RF glimepiride 2 mg tablet 2 mg PO QAM prednisone 5 mg tablet 5 mg PO BID amoxicillin 875 mg Tablet 875 mg PO BID Qty: 0 0RF Rx Instructions: TAKE UNTIL 11/17/22. cyanocobalamin (vitamin B-12) 500 mcg Tablet 1,000 mcg PO QAM Qty: 0 0RF nitroglycerin [Nitrostat] 0.4 mg Tablet, Sublingual 0.4 mg sublingual Q5M PRNQty: 0 0RF atorvastatin 20 mg tablet 20 mg PO HS Referrals Referrals: Kings Rios, DO [Primary Care Provider] -
[2022-11-14] MEDS ORDERED: ACETAMINOPHEN 1,000 MG/100 ML VIAL IV STA (14:33)
[2022-11-14 15:02] LABS: Base Excess VBG -0.2 mEq/L; HCO3 VBG 25 mmol/L; Oxygen Saturation VBG < 60.0 %; PCO2 VBG 41 mmHg (38-50); PO2 VBG < 20 mmHg; pH VBG 7.39 (7.36-7.41)
[2022-11-14 15:05] LABS: Basophils # (auto) 0.04 K/uL (0.00-0.20); Basophils % (auto) 0.4 %; Eosinophils # (auto) 0.08 K/uL (0.00-0.50); Eosinophils % (auto) 0.8 %; Hematocrit (blood only) 32.1 % (42.0-52.0); Hemoglobin 10.9 g/dl (14.0-18.0); Immature Granulocytes # (auto) 0.49 K/uL (0.01-0.20); Immature Granulocytes % (auto) 4.7 %; Lymphocytes # (auto) 0.55 K/uL (1.20-3.40); Lymphocytes % (auto) 5.2 %; Mean Corpuscular Volume 91.2 fL (80.0-100.0); Mean Platelet Volume 9.5 fL (9.4-12.4); Monocytes # (auto) 0.56 K/uL (0.11-0.59); Monocytes % (auto) 5.3 %; Neutrophils % (auto) 83.6 %; Nucleated RBC # (auto) 0.02 K/uL (0.00-0.12); Nucleated RBC % (auto) 0.2 %; Platelet Count 195 K/uL (130-400); RDW Coefficient of Variation 14.8 % (11.5-14.5); RDW Standard Deviation 48.3 fL (36.4-46.3); Red Blood Count 3.52 M/uL (4.70-6.10); White Blood Count 10.52 K/ul (4.8-10.8)
[2022-11-14] MEDS: SODIUM CHLORIDE 0.9% 500 ML IV SCH ×2 (15:20→18:09)
[2022-11-14 15:24] LABS: Albumin Level 2.6 gm/dl (3.4-5.0); BUN Creatinine Ratio 18.8 (10-20); Bilirubin Direct 0.2 mg/dl (0-0.2); Bilirubin,Total 0.8 mg/dl (0.2-1.0); Calcium 7.4 mg/dl (8.6-10.3); Creatinine Clr Calc Pharmacy 94.8 ml/min; Est GFR (African American) 96.7 ml/min; Est GFR (Non-African American) 83.5 ml/min; Magnesium 1.8 mg/dl (1.7-2.4); Potassium 4.3 mmol/L (3.5-5.1); Total Protein 5.4 gm/dl (6.0-8.3)
[2022-11-14 15:29] LABS: Troponin I High Sensitivity 17.4 pg/ml (0-20)
--- NOTE | 2022-11-14 15:32 | XRay Report ---
SINGLE VIEW CHEST CLINICAL HISTORY: Sepsis. FINDINGS: 2 AP, portable, upright chest radiographs are compared to study dated 11/11/2022. The examin ation is degraded by portable technique and patient rotation. The heart is enlarged noting atheroscle rotic calcification of the thoracic aorta. The pulmonary vasculature is noncongested. There is chroni c elevation of the right hemidiaphragm with bibasilar scarring/ atelectasis. No airspace consolidatio n or large pleural effusion is identified. No pneumothorax is seen. The skeletal structures are osteo penic. The bony thorax is grossly intact. IMPRESSION: No acute cardiopulmonary abnormality is identified. ACT 112: Negative or not required by law. Electronically signed by: Jesus Alberto Briones M.D. 11/14/2022 3:30 PM
[2022-11-14 15:36] LABS: Partial Thromboplastin Ratio 1.1; Partial Thromboplastin Time 30.9 Seconds (21.0-31.0); Prothrombin Time 11.4 Seconds (9.0-12.0)
[2022-11-14] MEDS ORDERED: OPTIRAY 320 125ml IV ONE (16:28)
--- NOTE | 2022-11-14 16:45 | CT Scan Report ---
CT SCAN OF THE BRAIN WITHOUT IV CONTRAST CLINICAL HISTORY: Change in mental status. COMPARISON STUDY: CT of the brain dated 08/14/2022. MRI of the brain dated 10/24/2022. TECHNIQUE: Unenhanced axial CT scan of the brain is performed from the vertex to the skull base. A do se lowering technique was utilized adhering to the principles of ALARA. The patient was scanned twice due to motion artifact. FINDINGS: Brain parenchyma: There is age-related involutional change noting moderate subcortical and periventri cular microangiopathic disease. There is no hemorrhage, mass effect, or evidence of acute territorial ischemia by CT criteria. [place]ado-white matter differentiation is preserved. No extra-axial fluid collec tion is seen. Ventricles, sulci, cisterns: Prominent secondary to involutional change. Intracranial vasculature: There is atherosclerotic calcification of the cavernous carotid arteries. Calvarium: Unremarkable. Sinuses and mastoids: Mild mucosal thickening seen within the maxillary, ethmoid, and frontal sinuses . The mastoid air cells are well pneumatized. Orbits: The bony orbits are grossly intact. There are bilateral ocular lens implants. IMPRESSION: There is no hemorrhage, mass effect, or evidence of acute territorial ischemia by CT crit delaney noting a motion compromised examination. ACT 112: Negative or not required by law. Electronically signed by: Jesus Alberto Briones M.D. 11/14/2022 4:43 PM
--- NOTE | 2022-11-14 16:57 | CT Scan Report ---
CT SCAN OF THE CERVICAL SPINE CLINICAL HISTORY: Neck pain. COMPARISON STUDY: CT of the cervical spine dated 08/14/2022 TECHNIQUE: CT scan of the cervical spine is performed from the skull base to the upper thoracic spine . Images are reviewed in the axial, sagittal, and coronal planes. IV contrast was not administered fo r this examination. A dose lowering technique was utilized adhering to the principles of ALARA. FINDINGS: Skeletal structures: The skeletal structures are osteopenic. There is no evidence of fracture or subl uxation involving the cervical spine. Vertebral body height and alignment are maintained. There is s traightening of the cervical lordosis. Anterior osteophytes are seen throughout. Apparent mild spinal curvature is likely positional. The odontoid process and lateral masses are intact. The atlantoaxial articulation is preserved noting nonproductive degenerative change. The spinous processes appear int act. There is mild/moderate multilevel cervical spondylosis. Uncovertebral facet arthropathy contribu te to neural foraminal narrowing at several levels. Intervertebral discs: There is moderate to severe disc space narrowing at C5-C6. Mild to moderate adolfo rowing is seen at the remaining cervical levels. Central canal: Grossly patent. Soft tissues: The prevertebral and paraspinous soft tissues are within normal limits. There is athero sclerotic calcification of the carotid bulbs. Calvarium: The visualized calvarium at the skull base appears intact. Brain parenchyma: Partially visualized brain parenchyma at the skull base is within normal limits. Sinuses and mastoids: The visualized paranasal sinuses are clear. There is trace right mastoid effusi on. The left mastoid air cells are well pneumatized. Lung apices: Clear as visualized. IMPRESSION: 1. No acute bony abnormality is seen involving the cervical spine. 2. Osteopenia and spondylotic change as above. ACT 112: Negative or not required by law. Electronically signed by: Jesus Alberto Briones M.D. 11/14/2022 4:56 PM
[2022-11-14] MEDS ORDERED: SODIUM CHLORIDE 0.9% 1,000 ML IV ONE (16:58)
[2022-11-14] MEDS ORDERED: dexAMETHasone**PF** 10 MG/ML VIAL IV ONE (16:59)
--- NOTE | 2022-11-14 17:02 | CT Scan Report ---
CT angio chest PE protocol CLINICAL HISTORY: Pain, sob, pr CA, r/o PE TECHNIQUE: Multidetector row helical CT of the chest was performed with angiographic protocol. Villalobos l and sagittal reformations were obtained. Coronal and sagittal MIPS were obtained from the axial dedrick a set and were submitted for review. Automated dose lowering techniques and/or adjustment according to patient size were utilized for this exam. Comparison: Comparison is made to CTA chest 10/08/2021 FINDINGS: Lungs and pleura: Interstitial thickening is seen with traction bronchiectasis in the lower lungs. Heart and pericardium: Heart size is normal. No pericardial effusion. Vessels: Evaluation for pulmonary embolism is limited due to artifacts from patient positioning.. No evidence of central, lobar, or segmental embolus. Mediastinum and nirmala: Unremarkable. Chest wall and lower neck: Unremarkable. Abdomen: Unremarkable. Bones: Degenerative changes of the thoracic spine. Old healed rib fractures are seen. IMPRESSION: 1. No acute abnormality and in particular no evidence of pulmonary embolus within the limits of radha facts due to patient positioning. 2. Interstitial lung disease and atelectasis without evidence of pneumonia. ACT 112: Negative or not required by law. Electronically signed by: Paulino Saha M.D. 11/14/2022 5:00 PM
--- NOTE | 2022-11-14 17:18 | CT Scan Report ---
CT lumbar spine w con CLINICAL HISTORY: neck back pain, Pr CA mets TECHNIQUE: Multidetector row helical CT of the lumbar spine was performed without administration of i ntravenous contrast. Coronal and sagittal reformations were obtained. Automated dose lowering techniq ues and/or adjustment according to patient size were utilized for this exam. CT DOSE: 5216.22 mGy.cm Comparison: Comparison is made to MRI lumbar spine 10/13/[address] lumbar spine 10/12/2022 FINDINGS: Posterior fixation hardware spans L3-S1. Soft tissue stranding and emphysema in the joint space is no grazyna. No acute fractures are identified. Vertebral body heights and disk spaces are well maintained. Verteb ral body alignment is within normal limits. Partial visualization of right hydronephrosis/hydroureter . IMPRESSION: Interval placement of posterior fixation hardware with expected postsurgical soft tissue swelling and subcutaneous emphysema. No acute fractures are seen. ACT 112: Negative or not required by law. Electronically signed by: Paulino Saha M.D. 11/14/2022 5:16 PM
[2022-11-14 17:27] LABS: Appearance Urine Cloudy (Clear); Bacteria Urine Automated Negative (Negative); Blood Urine Negative (Negative); Color Urine Dark Yellow; Glucose Urine UA Trace (Negative); Ketones Urine Trace (Negative); Leukocyte Esterase Urine Negative (Negative); Nitrite Urine Negative (Negative); Protein Urine 1+ (Negative); RBC Urine Automated 0-4 /hpf (0-4); Urobilinogen Urine Negative (Negative)
[2022-11-14 17:28] LABS: Bilirubin Urine 1+ (Negative)
--- NOTE | 2022-11-14 17:29 | CT Scan Report ---
CT SCAN OF THE THORACIC SPINE WITH IV CONTRAST CLINICAL HISTORY: Neck pain. Thoracic back pain. Prostate cancer. COMPARISON STUDY: MRI of the thoracic spine dated 09/02/2019. PET CT dated 09/18/2022. TECHNIQUE: Following the IV administration of 119 cc of Optiray 320, CT scan of the thoracic spine wa s performed from the lower cervical spine to the upper lumbar spine. Images are reviewed in the axial , sagittal, and coronal planes. IV contrast was administered without complication. A dose lowering te [place]nique was utilized adhering to the principles of ALARA. FINDINGS: The skeletal structures are osteopenic. There is no evidence of fracture or malalignment in volving the thoracic spine. Vertebral body height and alignment are maintained. Small anterior osteop hytes are seen throughout. The transverse and spinous processes appear intact. No lytic or blastic le sions are identified throughout the thoracic spine. There is mild multilevel degenerative disc space narrowing. There is no CT evidence of large disc herniation or high-grade central canal stenosis. The paraspinous soft tissues are normal as imaged. The visualized posterior ribs appear intact. The hear t is enlarged. The coronary arteries are densely calcified. Dependent atelectasis is noted at the prem g bases. IMPRESSION: 1. No acute bony abnormality is seen involving the thoracic spine. 2. No lytic or blastic lesion is seen. ACT 112: Negative or not required by law. Dictated: 11/14/2022 5:10 PM Transcribed: 11/14/2022 5:25 PM Urmila [id number] [id number] Electronically signed by: Jesus Alberto Briones M.D. 11/14/2022 5:28 PM
--- NOTE | 2022-11-14 17:30 | CT Scan Report ---
CT abd pelvis IV con only CLINICAL HISTORY: back pain, s/p decompress TECHNIQUE: Helical axial images of the abdomen and pelvis were obtained and displayed. Automated dose lowering techniques and/or adjustment according to patient size were utilized for this exam. This e xam was performed with intravenous contrast. COMPARISON: Comparison is made to CT abdomen pelvis 10/08/2021 FINDINGS: Lower chest: For findings above the diaphragm, please see CT chest performed same day. Liver: Subcentimeter hypodensities in the liver are too small to characterize. Gallbladder and biliary tree: No calcified gallstones. Normal caliber wall. No intra- or extrahepatic biliary ductal dilation. Pancreas: Redemonstration of cystic lesions in the pancreatic tail which may represent IPMN. Spleen: Unremarkable. Adrenals: Unremarkable. Kidneys and ureters: Atrophic right kidney with hydronephrosis/hydroureter noted. Bladder: Unremarkable. Reproductive organs: Unremarkable. Bowel: The appendix is normal. Lymph nodes Retroperitoneal: Unremarkable. Pelvic: Unremarkable. Mesenteric: Unremarkable. Peritoneum: Normal. Vessels: Unremarkable. Abdominal wall: Unremarkable. Bones: Degenerative changes in the visualized spine. Placement of posterior fixation hardware spannin g L3-S1 with associated soft tissue swelling and subcutaneous emphysema. A few sclerotic foci are aga in seen most prominently in the lower sacrum. IMPRESSION: 1. Postsurgical changes of decompression and fusion of the lower lumbar spine. 2. Redemonstration of a few sclerotic foci most prominently in the sacrum. 3. Atrophic right kidney with severe right hydroureteronephrosis again seen. Redemonstration of cyst ic lesion in tail which may represent IPMN. ACT 112: Negative or not required by law. Electronically signed by: Paulino Saha M.D. 11/14/2022 5:29 PM
[2022-11-14] MEDS ORDERED: HYDROCORTISONE SOD SUCCINATE 100 MG/2 ML VIAL IV STA (18:01)
[2022-11-14 18:08] LABS: Thyroid Stimulating Hormone 2.833 uIu/ml (0.300-4.500)
[2022-11-14] MEDS ORDERED: DAPTOmycin 475 MG in SYRINGE 0 ML IV STA (18:13)
[2022-11-14] MEDS ORDERED: PIPERACILLIN/TAZOBACTAM 4.5 GM in DEXTROSE 5% MINI-B 100 ML IV ONE (18:13)
--- NOTE | 2022-11-14 18:36 | History & Physical Report ---
Date of Service November 14, 2022 Assessment & Plan (1) Altered mental status: Plan: AMS and lethargy started evening of 11/12 after discharge from [facility] to [facility] assisted; AMS continued from 11/12-11/14 Unclear etiology; possibly secondary to baclofen/oxycodone combination; held in ED When patient awakens, he c/o significant back pain Hold p.o. medications (aspiration precautions) ABG - mildly decreased PCO2 at 34 Lactate WNL at 1.7 Ammonia WNL at [address] on 11/14 without acute findings Acetaminophen for pain Suspect secondary to combination of oxycodone and baclofen which he was not receiving while in hospital - only [place], naloxone deferred on admission as able to wake up, having significant pain when awake and ABG without hypercapnia/acidosis Blood cultures pending for possible infection given pain now generalized but no definitive cellulitis - consult ortho spine Hydrocortisone for possible adrenal crisis Of note UMA noted in prior notes but denied by his - current breathing pattern in setting of oxycodone/baclofen suggest apnea but did not tolerated CPAP previously, could consider if patient because more awake Suicidal ideation in the context of severe pain and altered mental state will need to be reassessed once more awake. (2) Adrenal insufficiency: Plan: Random cortisol 5.53 on admission 11/14 Hypotension/hyponatremia/altered mental state Hydrocortisone 100mg IV given in ER, continue 50 mg IV every 6 hours (3) Hyponatremia: Plan: Na 126 admission - suspect hypovolemic with poor intake although did not improve with normal saline Urine sodium low - less suggestive of adrenal crisis Give hypertonic saline 50ml now to stop it reducing any further overnight and repeat in AM (4) Pressure ulcer, back, lower: Plan: In the setting of recent back surgery and being bedbound Wound culture and Gram stain pending Continue empiric broad spectrum antibiotics pending blood and wound cultures Consult ortho spine to assess surgical area (5) HTN (hypertension): Plan: Hypotensive on admission dipping to a low of 62/40 Hold amlodipine, lisinopril, metoprolol for now - he only received these last 2 days of admission ?to birdie of a re-introduction given current hypotension (6) Prostate cancer metastatic to bone: Plan: Stage IV with bone mets Severe, intractable back pain Follows with Dr. Liriano Consider palliative care (7) Spinal stenosis: Plan: S/p lumbar decompression, fusion with Dr. Velazco on 11/04/[address] on 11/14 showed expected postsurgical soft tissue swelling/no acute fractures (8) Chronic steroid use: Plan: Hold prednisone Hydrocortisone as above (9) Depression: Plan: Hold sertraline Continue once no longer n.p.o. Suicidal ideations in the setting of AMS with intractable pain; however, consider palliative/psych discussion (10) DMII (diabetes mellitus, type 2): Plan: Last A1c was 7.7% on 09/24/2022 Glucose 191 on arrival Not currently eating or drinking; currently n.p.o. Hold Lantus Goal BSG Range: Low 140 mg/dL, High 180 mg/dL Correction Factor: 45 mg/dL/unit Carbohydrate ratio = 15 g/unit BSGs ACHS if eating, q6h while npo (11) Atrial fibrillation: Plan: Hold metoprolol Continuous telemetry monitoring Plan VTE Prophylaxis - deferred on admission given lack of clarity of sudden decline Diet - NPO pending being more alert, previously not on anticogulation for a. fib due to gross hematuria but tolerated heparin last admission Disposition - admit to PCU Admission and Anticipated Discharge Date Admission Date: November 14, 2022 History of Present Illness Chief Complaint: Altered mental state Generalized pain Primary Care Provider: DO Maxi Marestodd Walker is a 77-year-old male with PMH of prostate cancer with mets to spine, spinal stenosis s/p lumbar decompression on 11/04, HTN, anxiety, T2DM, atrial fibrillation, and depression. He presents from [facility] for AMS and severe generalized pain x2 days after recent discharge from [facility] on 11/12. [facility] hospital course: 10/24-11/12 for COVID, LLE DVT, visual hallucinations (possibly secondary to COVID), spinal stenosis, and generalized weakness. Still COVID+; placed on isolation precautions. Called [facility] and spoke on the phone with RN supervisor machine setter (Maricarmen): Per nursing staff, the patient arrived Saturday 11/11 and was somewhat alert and oriented, but became increasingly lethargic and somnolent that night. Since then, he has been lethargic and only waking to speak in one-word sentences. Not responding to pain scale, but endorsing severe back pain. No fevers noted at the assisted. Ulcer noted on back; swabbed for culture. Pain medications were not held due to lethargy (as previously noted). Patient received baclofen 10 mg 3 times daily with last dose at 1230 on 11/14; oxycodone 10 mg twice daily + 5 mg for breakthrough pain, with last dose given 1200 on 11/14. Per called over the phone. He reports Willard never had this kind of pain while he was in hospital - this is more generalized. Started whenever he went to [facility] and suspect initially just from the ambulance drive but he was somnolent even when he got to [facility] initially. He would complain of generalized pain but also getting more confused. No fever or chills. In the ED, patient remains somnolent/lethargic and difficult to wake. Stat ABGs and ammonia ordered. Per nurse, he expressed suicidal ideations, saying he "wanted to " secondary to his pain while he was being taken to the CT [facility]. Allergies Allergy/AdvReac Type Severity Reaction Status Date / Time cat dander Allergy Severe CAN CAUSE Verified 09/24/22 00:30 ASTHMA ATTACK-itchy eyes, congestion Home Medications Medication Instructions Recorded Confirmed Type abiraterone 500 mg tablet (Zytiga) 1,000 mg PO QAM 07/13/18 11/14/22 History calcium carbonate 500 mg-vitamin 1 tab PO QAM 07/13/18 11/14/22 History D3 5 mcg (200 unit) tablet (Calcium 500 + D) sertraline 100 mg tablet 100 mg PO QAM #90 tabs 09/01/19 11/14/22 Rx oxycodone 5 mg tablet 5 mg PO Q4H PRN Pain 03/16/20 11/14/22 History metoprolol succinate 200 mg 200 mg PO DAILY #90 tabs 07/15/22 11/14/22 Rx tablet,extended release 24 hr amlodipine 10 mg tablet 10 mg PO QAM #90 tabs 07/18/22 11/14/22 Rx lisinopril 20 mg tablet 20 mg PO DAILY #90 tabs 07/23/22 11/14/22 Rx omeprazole 20 mg delayed 20 mg PO QAM #90 tabs 09/03/22 11/14/22 Rx release,disintegrating tablet multivitamin with minerals 1 tab PO DAILY 09/24/22 11/14/22 History ondansetron 4 mg disintegrating 4 mg PO Q8H PRN NAUSEA/VOMITING 09/24/22 11/14/22 History tablet triamcinolone acetonide 0.1 % 1 applic topical .AMPM 09/24/22 11/14/22 History topical cream baclofen 10 mg tablet 10 mg PO TID #0 tabs 10/19/22 11/14/22 Rx loratadine 10 mg tablet (Wal-itin) 10 mg PO DAILY #0 tabs 10/19/22 11/14/22 Rx glimepiride 2 mg tablet 2 mg PO QAM 10/24/22 11/14/22 History prednisone 5 mg tablet 5 mg PO BID 11/06/22 11/14/22 History amoxicillin 875 mg tablet 875 mg PO BID #0 tabs 11/12/22 11/14/22 Rx cyanocobalamin (vitamin B-12) 500 1,000 mcg PO QAM #0 tabs 11/12/22 11/14/22 Rx mcg tablet acetaminophen 325 mg tablet 650 mg PO Q6 PRN Pain 1-4 11/14/22 11/14/22 History atorvastatin 20 mg tablet 20 mg PO HS 11/14/22 11/14/22 History nitroglycerin 0.4 mg sublingual 0.4 mg sublingual Q5M PRN Chest 11/14/22 11/14/22 History tablet (Nitrostat) Pain oxycodone 10 mg tablet,crush 10 mg PO AMHS 11/14/22 11/14/22 History resistant,extended release 12 hr (OxyContin) Past Med/Surg History Medical History (Updated 11/14/22 @ 20:33 by Orlando Perla PA-C) Acute urinary retention Ambulatory dysfunction Androgen-induced osteoporosis Anxiety Atrial fibrillation DX 2019 - FOLLOWS W/ DR. 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/2 PROSTATE CA Urinary frequency Urinary incontinence Urge incontinence Urinary retention Resolved Urinary tract infection Surgical History History of cataract surgery 2018 - Bilat History of colonoscopy 2011 (due in 2021) History of prostate biopsy 2014 History of tonsillectomy as a child History of tooth extraction in age 19's S/P TURP 2014 Family History Mother , Passed age 60 of sepsis Gallbladder disease Mental disorder Psychological disorder Father , Passed age 89 of sepsis (infected bladder stones) Congestive heart failure Bladder stones Prostate cancer no treatment needed Brother Heart failure Kidney stones Kidney disease Bladder cancer, Onset Age: 75 Myocardial infarction Grandmother (Paternal) , Passed age 93 of old age Breast cancer, Onset Age: 40 double mastectomy and then did well Sister , Passed age 2 of pneumonia No problems noted. Other Has no children Denies family history of Colon cancer Ovarian cancer Social History Smoking Status: Unknown if ever smoked Tobacco Type: Cigarettes Age Started Using Tobacco: 20; Age Quit Using Tobacco: 39; packs per day: 0.5; Second Hand Exposure: No; Do You Dip or Chew Tobacco: No; Hx Alcohol Use: No Hx Substance Use: No Preferred Language: Citizen Of [place] Communication Ability: Effective Communication Tools: Other Visual Impairment: Limited Hearing Ability: Normal Gum Mixer Required: No Beliefs That Will Affect Care: None marital status: Current Living Situation: Family and Significant Other Current Living Situation Comment: LIVES W/ [place] - current occupational status: retired 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 Feels Safe at Home: Yes Childhood Exposure to Second-Hand Smoke: No Diet: diabetic caffeine: Yes (1 cup of coffee/day ) during the past year weight has: remained stable Dental Care, Regularly: No Physical Activity Frequency: Does not Exercise Seatbelt Use: always Sunscreen Use: Yes Assistive Devices: Walker and Other Review of Systems Review of Systems: Unobtainable due to cognitive status Physical Exam Constitutional: well developed, + acute distress (pain whenever moved) and + morbidly obese; + not well nourished Eyes: PERRL, conjunctivae normal, anicteric sclerae ENMT: Mouth: + dry oral mucous membranes Respiratory: + labored breathing, + uses accessory muscles, + prolonged expiratory phase and symmetric chest movement; no stridor Auscultation: lungs clear to auscultation bilaterally; breath sounds present, no diminished lung sounds, no crackles, no rales, no rhonchi and no wheezes occasional apneic breathing Cardiovascular: Rate/Rhythm: regular rate and + irregularly irregular Heart Sounds: no murmur Extremities: normal capillary refill and + pedal edema (trace b/l equal); no calf tenderness Gastrointestinal (Abdomen): normal bowel sounds, soft, nontender, no hepatosplenomegaly Skin: 2mm ulcer to the right of back surgical site, surgical site itself appears C/D/I Neurologic: awake (to pain, gag reflex present, GCS 8 (E2V2M4)) Psychiatric: Orientation: alert (to pain); + not oriented x 3 Results & Data Results & Data Vital Signs (Past 12 Hours) Vital Signs Pulse Pulse Resp BP BP Pulse Ox O2 Del Method 11/14/22 17:57 87 11/14/22 17:30 88 18 87 L 11/14/22 17:30 88/76 L 11/14/22 17:27 86 17 92 11/14/22 17:27 89/54 L 11/14/22 17:19 71/45 L 11/14/22 17:19 98 H 18 92 11/14/22 17:16 62/40 L 11/14/22 17:16 91 H 18 93 11/14/22 17:15 89 19 91 11/14/22 17:14 71/41 L 11/14/22 17:14 93 H 22 89 L 11/14/22 17:00 89 28 H 91 11/14/22 16:46 18 11/14/22 16:45 85/68 L 11/14/22 16:19 86 L 11/14/22 16:16 89/59 L 11/14/22 16:16 92 H 28 H 95 11/14/22 16:15 85 23 92 11/14/22 16:13 88/62 L 11/14/22 16:13 95 H 21 95 11/14/22 16:09 87/55 L 11/14/22 16:09 82 20 94 11/14/22 16:02 85/63 L 11/14/22 16:02 83 13 91 11/14/22 16:00 96 H 20 94 11/14/22 16:00 78/57 L 11/14/22 15:45 98 H 17 93 11/14/22 15:45 121/71 11/14/22 15:32 105/57 L 11/14/22 15:32 89 18 94 11/14/22 15:30 88 16 92 11/14/22 15:15 95 H 20 94 11/14/22 15:14 95/72 L 11/14/22 15:14 88 28 H 88 L 11/14/22 15:00 90 21 89 L 11/14/22 14:45 100 H 20 90 11/14/22 14:30 98 H 17 95 11/14/22 14:27 98/72 L 11/14/22 14:27 101 H 24 11/14/22 14:15 94 H 18 11/14/22 14:00 96 H 17 92 11/14/22 13:57 98 H 15 11/14/22 16:11 87/55 L 11/14/22 16:02 85/63 L 11/14/22 16:00 78 78/57 L 11/14/22 15:30 94 H 18 105/57 L 92 Room Air 11/14/22 15:11 92 H 22 95/72 L 93 Room Air 11/14/22 14:41 98 H 18 98/72 L 94 Room Air 11/14/22 14:26 90 18 94 Room Air 11/14/22 14:26 98 Room Air 11/14/22 13:48 94 H 18 118/96 98 11/14/22 13:48 104 H 18 119/96 98 11/14/22 13:58 93 H Laboratory Results Abnormal lab results 11/14/22 11/14/22 11/14/22 Range/Units 14:50 14:50 17:10 RBC 3.52 L (4.70-6.10) M/uL Hgb 10.9 L (14.0-18.0) g/dl Hct 32.1 L (42.0-52.0) % RDW Std Deviation 48.3 H (36.4-46.3) fL RDW Coeff of Tramaine 14.8 H (11.5-14.5) % Neut # (Auto) 8.80 H (1.40-6.50) K/uL Lymph # (Auto) 0.55 L (1.20-3.40) K/uL Immature Gran # (Auto) 0.49 H (0.01-0.20) K/uL Sodium 126 L (136-145) mmol/L Chloride 95 L (98-107) mmol/L Glucose 191 H (70-99(Fasting)) mg/dl Calcium 7.4 L (8.6-10.3) mg/dl Phosphorus 2.0 L (2.5-4.9) mg/dl Total Protein 5.4 L (6.0-8.3) gm/dl Albumin 2.6 L (3.4-5.0) gm/dl Urine Appearance Cloudy A (Clear) Urine Protein 1+ H (Negative) Urine Glucose (UA) Trace H (Negative) Urine Ketones Trace H (Negative) Urine Bilirubin 1+ H (Negative) U Epithel Cells (Auto) 10-20 H (0-5) /lpf Diagnostic Findings CT SCAN OF THE BRAIN WITHOUT IV CONTRAST CLINICAL HISTORY: Change in mental status. COMPARISON STUDY: CT of the brain dated 08/14/2022. MRI of the brain dated 10/24/2022. TECHNIQUE: Unenhanced axial CT scan of the brain is performed from the vertex to the skull base. A dose lowering technique was utilized adhering to the principles of ALARA. The patient was scanned twice due to motion artifact. FINDINGS: Brain parenchyma: There is age-related involutional change noting moderate subcortical and periventricular microangiopathic disease. There is no hemorrhage, mass effect, or evidence of acute territorial ischemia by CT criteria. Prado-white matter differentiation is preserved. No extra-axial fluid collection is seen. Ventricles, sulci, cisterns: Prominent secondary to involutional change. Intracranial vasculature: There is atherosclerotic calcification of the cavernous carotid arteries. Calvarium: Unremarkable. Sinuses and mastoids: Mild mucosal thickening seen within the maxillary, ethmoid, and frontal sinuses. The mastoid air cells are well pneumatized. Orbits: The bony orbits are grossly intact. There are bilateral ocular lens implants. IMPRESSION: There is no hemorrhage, mass effect, or evidence of acute territorial ischemia by CT criteria noting a motion compromised examination. CT SCAN OF THE CERVICAL SPINE CLINICAL HISTORY: Neck pain. COMPARISON STUDY: CT of the cervical spine dated 08/14/2022 TECHNIQUE: CT scan of the cervical spine is performed from the skull base to the upper thoracic spine. Images are reviewed in the axial, sagittal, and coronal planes. IV contrast was not administered for this examination. A dose lowering technique was utilized adhering to the principles of ALARA. FINDINGS: Skeletal structures: The skeletal structures are osteopenic. There is no evidence of fracture or subluxation involving the cervical spine. Vertebral body height and alignment are maintained. There is straightening of the cervical lordosis. Anterior osteophytes are seen throughout. Apparent mild spinal curvature is likely positional. The odontoid process and lateral masses are intact. The atlantoaxial articulation is preserved noting nonproductive degenerative change. The spinous processes appear intact. There is mild/moderate multilevel cervical spondylosis. Uncovertebral facet arthropathy contribute to neural foraminal narrowing at several levels. Intervertebral discs: There is moderate to severe disc space narrowing at C5-C6. Mild to moderate narrowing is seen at the remaining cervical levels. Central canal: Grossly patent. Soft tissues: The prevertebral and paraspinous soft tissues are within normal limits. There is atherosclerotic calcification of the carotid bulbs. Calvarium: The visualized calvarium at the skull base appears intact. Brain parenchyma: Partially visualized brain parenchyma at the skull base is within normal limits. Sinuses and mastoids: The visualized paranasal sinuses are clear. There is trace right mastoid effusion. The left mastoid air cells are well pneumatized. Lung apices: Clear as visualized. IMPRESSION: 1. No acute bony abnormality is seen involving the cervical spine. 2. Osteopenia and spondylotic change as above. CT SCAN OF THE THORACIC SPINE WITH IV CONTRAST CLINICAL HISTORY: Neck pain. Thoracic back pain. Prostate cancer. COMPARISON STUDY: MRI of the thoracic spine dated 09/02/2019. PET CT dated 09/18/2022. TECHNIQUE: Following the IV administration of 119 cc of Optiray 320, CT scan of the thoracic spine was performed from the lower cervical spine to the upper lumbar spine. Images are reviewed in the axial, sagittal, and coronal planes. IV contrast was administered without complication. A dose lowering technique was utilized adhering to the principles of ALARA. FINDINGS: The skeletal structures are osteopenic. There is no evidence of fracture or malalignment involving the thoracic spine. Vertebral body height and alignment are maintained. Small anterior osteophytes are seen throughout. The transverse and spinous processes appear intact. No lytic or blastic lesions are identified throughout the thoracic spine. There is mild multilevel degenerative disc space narrowing. There is no CT evidence of large disc herniation or high- grade central canal stenosis. The paraspinous soft tissues are normal as imaged. The visualized posterior ribs appear intact. The heart is enlarged. The coronary arteries are densely calcified. Dependent atelectasis is noted at the lung bases. IMPRESSION: 1. No acute bony abnormality is seen involving the thoracic spine. 2. No lytic or blastic lesion is seen. CT lumbar spine w con CLINICAL HISTORY: neck back pain, Pr CA mets TECHNIQUE: Multidetector row helical CT of the lumbar spine was performed without administration of intravenous contrast. Coronal and sagittal reformations were obtained. Automated dose lowering techniques and/or adjustment according to patient size were utilized for this exam. CT DOSE: 5216.22 mGy.cm Comparison: Comparison is made to MRI lumbar spine 10/13/[address] lumbar spine 10/12/2022 FINDINGS: Posterior fixation hardware spans L3-S1. Soft tissue stranding and emphysema in the joint space is noted. No acute fractures are identified. Vertebral body heights and disk spaces are well maintained. Vertebral body alignment is within normal limits. Partial visualization of right hydronephrosis/hydroureter. IMPRESSION: Interval placement of posterior fixation hardware with expected postsurgical soft tissue swelling and subcutaneous emphysema. No acute fractures are seen. CT angio chest PE protocol CLINICAL HISTORY: Pain, sob, pr CA, r/o PE TECHNIQUE: Multidetector row helical CT of the chest was performed with angiographic protocol. Coronal and sagittal reformations were obtained. Coronal and sagittal MIPS were obtained from the axial data set and were submitted for review. Automated dose lowering techniques and/or adjustment according to p atient size were utilized for this exam. Comparison: Comparison is made to CTA chest 10/08/2021 FINDINGS: Lungs and pleura: Interstitial thickening is seen with traction bronchiectasis in the lower lungs. Heart and pericardium: Heart size is normal. No pericardial effusion. Vessels: Evaluation for pulmonary embolism is limited due to artifacts from patient positioning.. No evidence of central, lobar, or segmental embolus. Mediastinum and nirmala: Unremarkable. Chest wall and lower neck: Unremarkable. Abdomen: Unremarkable. Bones: Degenerative changes of the thoracic spine. Old healed rib fractures are seen. IMPRESSION: 1. No acute abnormality and in particular no evidence of pulmonary embolus within the limits of artifacts due to patient positioning. 2. Interstitial lung disease and atelectasis without evidence of pneumonia. SINGLE VIEW CHEST CLINICAL HISTORY: Sepsis. FINDINGS: 2 AP, portable, upright chest radiographs are compared to study dated 11/11/2022. The examination is degraded by portable technique and patient rotation. The heart is enlarged noting atherosclerotic calcification of the thoracic aorta. The pulmonary vasculature is noncongested. There is chronic elevation of the right hemidiaphragm with bibasilar scarring/ atelectasis. No airspace consolidation or large pleural effusion is identified. No pneumothorax is seen. The skeletal structures are osteopenic. The bony thorax is grossly intact. IMPRESSION: No acute cardiopulmonary abnormality is identified. CT abd pelvis IV con only CLINICAL HISTORY: back pain, s/p decompress TECHNIQUE: Helical axial images of the abdomen and pelvis were obtained and displayed. Automated dose lowering techniques and/or adjustment according to patient size were utilized for this exam. This exam was performed with intravenous contrast. COMPARISON: Comparison is made to CT abdomen pelvis 10/08/2021 FINDINGS: Lower chest: For findings above the diaphragm, please see CT chest performed same day. Liver: Subcentimeter hypodensities in the liver are too small to characterize. Gallbladder and biliary tree: No calcified gallstones. Normal caliber wall. No intra- or extrahepatic biliary ductal dilation. Pancreas: Redemonstration of cystic lesions in the pancreatic tail which may represent IPMN. Spleen: Unremarkable. Adrenals: Unremarkable. Kidneys and ureters: Atrophic right kidney with hydronephrosis/hydroureter noted. Bladder: Unremarkable. Reproductive organs: Unremarkable. Bowel: The appendix is normal. Lymph nodes Retroperitoneal: Unremarkable. Pelvic: Unremarkable. Mesenteric: Unremarkable. Peritoneum: Normal. Vessels: Unremarkable. Abdominal wall: Unremarkable. Bones: Degenerative changes in the visualized spine. Placement of posterior fixation hardware spanning L3-S1 with associated soft tissue swelling and subcutaneous emphysema. A few sclerotic foci are again seen most prominently in the lower sacrum. IMPRESSION: 1. Postsurgical changes of decompression and fusion of the lower lumbar spine. 2. Redemonstration of a few sclerotic foci most prominently in the sacrum. 3. Atrophic right kidney with severe right hydroureteronephrosis again seen. Redemonstration of cystic lesion in tail which may represent IPMN. Medications Administered ER Medications Given: Acetaminophen 1000mg IV Normal 1000ml bolus Dexamethasone 10mg IV Hydrocortisone 100mg IV Daptomycin 475mg IV Zosyn 4.5g IV ECG Rate (beats per minute): 99 Rhythm: atrial fibrillation Findings: + T-wave inversion (Anterolateral) Comparison ECG Date: from (September 24, 2022) Change: the following changes noted (TWI are new) Code Status & VTE Plan Code Status DNR/DNI VTE Prophylaxis Plan VTE Prophylaxis will be ordered: No PG Care Time/CCT Total # of Minutes Spent Total Time Spent with Patient: Total time spent is greater than 50% in coordination of care (as documented) at patient's floor/unit and/or counseling patient: Coding Level of Care Code 99838 INT INP/OBS CARE 3/75MIN Diagnoses Altered mental status R41.82 Adrenal insufficiency E27.40 Hyponatremia E87.1 Pressure ulcer, back, lower L89.109 HTN (hypertension) I10 Prostate cancer metastatic to bone C61; C79.51 Spinal stenosis M48.00 Spinal region: unspecified Chronic steroid use Depression F32.9 DMII (diabetes mellitus, type 2) E11.9 Atrial fibrillation I48.91 (7) Spinal stenosis Spinal region: unspecified Qualified Code(s): M48.00 - Spinal stenosis, site unspecified
[2022-11-14 19:46] LABS: Base Excess ABG -3.6 mEq/L (-9-1.8); HCO3 ABG 21 mmol/L (19-24); Oxygen Saturation ABG 91.5 % (90-95); PCO2 ABG 34 mmHg (35-46); PO2 ABG 62 mmHg (80-95); pH ABG 7.39 (7.35-7.45)
[2022-11-14 19:47] LABS: Allen Test Pos (Pos)
[2022-11-14 21:42] LABS: BUN Creatinine Ratio 22.2 (10-20); Calcium 6.6 mg/dl (8.6-10.3); Creatinine Clr Calc Pharmacy 111.9 ml/min; Est GFR (African American) 103.6 ml/min; Est GFR (Non-African American) 89.3 ml/min; Potassium 4.1 mmol/L (3.5-5.1)
[2022-11-14] MEDS ORDERED: STAT IV/IM STA (21:59)
[2022-11-14] MEDS ORDERED: SODIUM CHLORIDE 3 % 50 ML IV ONE (21:59)
[2022-11-14] MEDS ORDERED: PLASMA-LYTE A 1,000 ML IV SCH (22:56)
[2022-11-14] MEDS ORDERED: GLUCOSE 40% GEL 15 GM TUBE PO PRN (22:56)
[2022-11-14] MEDS ORDERED: GLUCAGON FOR INJ 1 MG VIAL SQ PRN (22:56)
[2022-11-14] MEDS ORDERED: CARBOHYDRATES FOR HYPOGLYCEMIA PO PRN (22:56)
[2022-11-14] MEDS ORDERED: DEXTROSE 50% 50 ML SYRINGE IV PRN (22:56)
[2022-11-14] MEDS ORDERED: GLUCOSE 10 TAB/TUBE PO PRN (22:56)
[2022-11-15] MEDS ORDERED: HYDROCORTISONE SOD SUCCINATE 100 MG/2 ML VIAL IV SCH
[2022-11-15] MEDS: INSULIN ASPART PER UNIT CHARGE SC SCH ×5 (00:29→22:38)
[2022-11-15] MEDS: HYDROCORTISONE SOD 50 MG in SYRINGE 0 ML IV SCH ×4 (00:31→19:54)
[2022-11-15] MEDS: PIPERACILLIN/TAZOBACTAM 4.5 GM in DEXTROSE 5% MINI-B 100 ML IV SCH ×2 (02:25→11:09)
--- NOTE | 2022-11-15 05:56 | Communication Note ---
Date of Service: November 15, 2022 Readdressed patient's "suicidal ideation" that was initially found on interview by Dr. Goel. Patient is clear that he has no suicidal ideation, plan, or intent. He does not remember making these claims. He has never had suicidal thoughts per his history on my interview. When asked if he would harm himself or other people, he reports "no I would never do such a thing. I just want to be home as soon as possible." Pt does not require 1:1 supervision per my exam and interview with the patient.
[2022-11-15 06:09] LABS: Basophils # (auto) 0.03 K/uL (0.00-0.20); Basophils % (auto) 0.3 %; Hemoglobin 10.2 g/dl (14.0-18.0); Immature Granulocytes # (auto) 0.38 K/uL (0.01-0.20); Immature Granulocytes % (auto) 3.9 %; Lymphocytes # (auto) 0.43 K/uL (1.20-3.40); Lymphocytes % (auto) 4.4 %; Mean Corpuscular Hemoglobin 30.7 pg (25.0-34.0); Mean Corpuscular Hgb Conc 32.9 g/dL (32.0-36.0); Mean Corpuscular Volume 93.4 fL (80.0-100.0); Mean Platelet Volume 9.8 fL (9.4-12.4); Monocytes # (auto) 0.38 K/uL (0.11-0.59); Monocytes % (auto) 3.9 %; Neutrophils # (auto) 8.61 K/uL (1.40-6.50); Neutrophils % (auto) 87.5 %; Platelet Count 191 K/uL (130-400); Red Blood Count 3.32 M/uL (4.70-6.10); White Blood Count 9.83 K/ul (4.8-10.8)
[2022-11-15 06:32] LABS: Albumin Level 2.5 gm/dl (3.4-5.0); BUN Creatinine Ratio 23.5 (10-20); Bilirubin,Total 0.6 mg/dl (0.2-1.0); Calcium 6.6 mg/dl (8.6-10.3); Creatinine Clr Calc Pharmacy 118.5 ml/min; Est GFR (Non-African American) 91.5 ml/min; Globulin 2.5 gm/dl (2.5-4.0); Magnesium 1.8 mg/dl (1.7-2.4); Phosphorus 2.4 mg/dl (2.5-4.9); Potassium 4.1 mmol/L (3.5-5.1)
[2022-11-15 06:58] LABS: HCO3 ABG 17 mmol/L (19-24); Oxygen Saturation ABG 97.1 % (90-95); PCO2 ABG 26 mmHg (35-46); PO2 ABG 94 mmHg (80-95); pH ABG 7.42 (7.35-7.45)
[2022-11-15 07:25] LABS: Allen Test Pos (Pos)
--- NOTE | 2022-11-15 07:28 | XRay Report ---
XR chest 1V portable CLINICAL HISTORY: hypoxia TECHNIQUE: Single frontal radiograph of the chest was obtained. Comparison: Comparison is made to chest radiograph 11/14/2022 FINDINGS: No lines and tubes are seen. Cardiomegaly is noted. The aortic arch is calcified. Lungs are underinfl ated but clear. No evidence of pleural effusion or pneumothorax. IMPRESSION: No acute chest disease. ACT 112: Negative or not required by law. Electronically signed by: Paulino Saha M.D. 11/15/2022 7:27 AM
[2022-11-15] MEDS ORDERED: INFLUENZA VACCINE HIGH-DOSE (HD-IIV4) PF 65+ 0.7mL SYR IM ONE (08:33)
[2022-11-15] MEDS: ACETAMINOPHEN 1,000 MG/100 ML VIAL IV PRN (08:44)
[2022-11-15] MEDS: METOPROLOL SUCC 50MG EXT REL TAB PO SCH (11:31)
[2022-11-15] MEDS: SODIUM CHLORIDE 0.9% 1,000 ML IV SCH (11:31)
[2022-11-15] MEDS: traMADol HCL 50 MG TABLET PO PRN ×2 (11:56→19:54)
[2022-11-15 12:01] LABS: A calco-baum cmplx NotReported Not Detected (NotDetected); Bact fragilis Not Reported Not Detected (NotDetected); C auris Not Reported Not Detected (NotDetected); Calbicans Not Reported Not Detected (NotDetected); Candida glabrata Not Reported Not Detected (NotDetected); Candida krusei Not Reported Not Detected (NotDetected); Cneoformans/gatti Not Reported Not Detected (NotDetected); Cparapsilosis Not Reported Not Detected (NotDetected); E cloacae compx Not Reported Not Detected (NotDetected); Efaecalis Not Reported Not Detected (NotDetected); Efaecium Not Reported Not Detected (NotDetected); Enterobacterales Not Reported Not Detected (NotDetected); Escherichia coli Not Reported Not Detected (NotDetected); H influenzae Not Reported Not Detected (NotDetected); K aerogenes Not Reported Not Detected (NotDetected); Koxytoca Not Reported Not Detected (NotDetected); Kpneumoniae grp Not Reported Not Detected (NotDetected); Lmonocyt Not Reported Not Detected (NotDetected); N meningitidis Not Reported Not Detected (NotDetected); P aeruginosa Not Reported Not Detected (NotDetected); Proteus spp Not Reported Not Detected (NotDetected); Salmonella spp Not Reported Not Detected (NotDetected); Smarcescens Not Reported Not Detected (NotDetected); Staph lugdunensis Not Reported Not Detected (NotDetected); Staph spp. Not Reported DETECTED (NotDetected); Staphaureus Not Reported DETECTED (NotDetected); Staphepi Not Reported Not Detected (NotDetected); Staphylococcus spp. DETECTED (NotDetected); Stenmaltophilia Not Reported Not Detected (NotDetected); Strep agal(GrpB) Not Reported Not Detected (NotDetected); Strep pneum Not Reported Not Detected (NotDetected); Strep pyog (GrpA) Not Reported Not Detected (NotDetected); Strep spp Not Reported Not Detected (NotDetected)
[2022-11-15 12:04] LABS: mecAC+MREJ Resistant Gene MRSA DETECTED (NotDetected)
--- NOTE | 2022-11-15 12:20 | Orthopedic Consultation ---
Date of Consultation November 15, 2022 Assessment & Plan (1) Neurogenic claudication due to lumbar spinal stenosis: Imaging lumbar spine demonstrates instrumentation in place in appropriate alignment. No evidence of fluid collection. I would hope that we can initiate physical therapy occupational therapy as soon as he is medically stable. He needs to get out of bed and get pressure off of his back. History of Present Illness Reason for Consultation: Status post lumbar decompression fusion Attending Physician: Luiz Parish MD History of Present Illness This is a 77-year-old male known to me status post multilevel lumbar decompression and fusion. He returned to the hospital with a marked decline in status yesterday. This afternoon he is with his friend. He is alert and oriented. States he is much more comfortable. Denies any significant back or leg pain. Allergies Allergy/AdvReac Type Severity Reaction Status Date / Time cat dander Allergy Severe CAN CAUSE Verified 09/24/22 00:30 ASTHMA ATTACK-itchy eyes, congestion Home Medications Medication Instructions Recorded Confirmed Type abiraterone 500 mg tablet (Zytiga) 1,000 mg PO QAM 07/13/18 11/14/22 History calcium carbonate 500 mg-vitamin 1 tab PO QAM 07/13/18 11/14/22 History D3 5 mcg (200 unit) tablet (Calcium 500 + D) sertraline 100 mg tablet 100 mg PO QAM #90 tabs 09/01/19 11/14/22 Rx oxycodone 5 mg tablet 5 mg PO Q4H PRN Pain 03/16/20 11/14/22 History metoprolol succinate 200 mg 200 mg PO DAILY #90 tabs 07/15/22 11/14/22 Rx tablet,extended release 24 hr amlodipine 10 mg tablet 10 mg PO QAM #90 tabs 07/18/22 11/14/22 Rx lisinopril 20 mg tablet 20 mg PO DAILY #90 tabs 07/23/22 11/14/22 Rx omeprazole 20 mg delayed 20 mg PO QAM #90 tabs 09/03/22 11/14/22 Rx release,disintegrating tablet multivitamin with minerals 1 tab PO DAILY 09/24/22 11/14/22 History ondansetron 4 mg disintegrating 4 mg PO Q8H PRN NAUSEA/VOMITING 09/24/22 11/14/22 History tablet triamcinolone acetonide 0.1 % 1 applic topical .AMPM 09/24/22 11/14/22 History topical cream baclofen 10 mg tablet 10 mg PO TID #0 tabs 10/19/22 11/14/22 Rx loratadine 10 mg tablet (Wal-itin) 10 mg PO DAILY #0 tabs 10/19/22 11/14/22 Rx glimepiride 2 mg tablet 2 mg PO QAM 10/24/22 11/14/22 History prednisone 5 mg tablet 5 mg PO BID 11/06/22 11/14/22 History amoxicillin 875 mg tablet 875 mg PO BID #0 tabs 11/12/22 11/14/22 Rx cyanocobalamin (vitamin B-12) 500 1,000 mcg PO QAM #0 tabs 11/12/22 11/14/22 Rx mcg tablet acetaminophen 325 mg tablet 650 mg PO Q6 PRN Pain 1-4 11/14/22 11/14/22 History atorvastatin 20 mg tablet 20 mg PO HS 11/14/22 11/14/22 History nitroglycerin 0.4 mg sublingual 0.4 mg sublingual Q5M PRN Chest 11/14/22 11/14/22 History tablet (Nitrostat) Pain oxycodone 10 mg tablet,crush 10 mg PO AMHS 11/14/22 11/14/22 History resistant,extended release 12 hr (OxyContin) Patient History Medical History (Updated 11/14/22 @ 20:33 by Orlando Perla PA-C) Acute urinary retention Ambulatory dysfunction Androgen-induced osteoporosis Anxiety Atrial fibrillation DX 2019 - FOLLOWS W/ DR. 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/2 PROSTATE CA Urinary frequency Urinary incontinence Urge incontinence Urinary retention Resolved Urinary tract infection Surgical History History of cataract surgery 2019 - Bilat History of colonoscopy 2011 (due in 2021) History of prostate biopsy 2014 History of tonsillectomy as a child History of tooth extraction in age 19's S/P TURP 2014 Family History Mother , Passed age 60 of sepsis Gallbladder disease Mental disorder Psychological disorder Father , Passed age 89 of sepsis (infected bladder stones) Congestive heart failure Bladder stones Prostate cancer no treatment needed Brother Heart failure Kidney stones Kidney disease Bladder cancer, Onset Age: 75 Myocardial infarction Grandmother (Paternal) , Passed age 93 of old age Breast cancer, Onset Age: 40 double mastectomy and then did well Sister , Passed age 2 of pneumonia No problems noted. Other Has no children Denies family history of Colon cancer Ovarian cancer Social History Smoking Status: Former smoker Tobacco Type: Cigarettes Age Started Using Tobacco: 20; Age Quit Using Tobacco: 39; packs per day: 0.5; Smoking End Date: 30 years ago; Second Hand Exposure: No; Do You Dip or Chew Tobacco: No; Tobacco Cessation Education Requested by Patient: No Hx Alcohol Use: No Hx Substance Use: No Preferred Language: Gibraltarian Communication Ability: Effective Communication Tools: Other Visual Impairment: Limited Hearing Ability: Normal Assisted Living Administrator Required: No Beliefs That Will Affect Care: None marital status: Current Living Situation: [place] Current Living Situation Comment: LIVES W/ [facility] - current occupational status: retired 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 Results & Data Vital Signs (Past 12 Hours) Vital Signs Temp Pulse Pulse Pulse Resp BP BP 11/15/22 08:05 36.8 C 102 H 18 110/74 11/15/22 07:23 95 H 11/15/22 07:00 84 16 11/15/22 06:00 84 18 91/67 L 11/15/22 05:30 92 H 23 93/65 L 11/15/22 05:00 96 H 22 110/75 11/15/22 04:30 90 25 H 99/63 L 11/15/22 04:00 90 25 H 107/74 11/15/22 03:30 90 24 113/65 11/15/22 03:00 87 23 108/82 11/15/22 02:30 86 22 106/73 11/15/22 02:15 85 20 100/70 11/15/22 02:00 84 20 100/65 11/15/22 01:30 82 20 104/75 11/15/22 01:15 86 20 112/75 11/15/22 01:00 90 20 94/61 L 11/15/22 00:30 82 21 105/69 11/15/22 00:51 85 20 BP Pulse Ox O2 Del Method O2 Flow Rate 11/15/22 08:05 95 Room Air 11/15/22 07:23 11/15/22 07:00 95/61 L 97 Room Air 2 11/15/22 06:00 94 Nasal Cannula 2 11/15/22 05:30 97 Nasal Cannula 2 11/15/22 05:00 96 Nasal Cannula 2 11/15/22 04:30 97 Nasal Cannula 2 11/15/22 04:00 97 Room Air 2 11/15/22 03:30 97 Nasal Cannula 2 11/15/22 03:00 97 Nasal Cannula 2 11/15/22 02:30 97 Nasal Cannula 2 11/15/22 02:15 96 Nasal Cannula 2 11/15/22 02:00 97 Nasal Cannula 2 11/15/22 01:30 98 Nasal Cannula 2 11/15/22 01:15 98 Nasal Cannula 2 11/15/22 01:00 98 Nasal Cannula 2 11/15/22 00:30 98 Nasal Cannula 2 11/15/22 00:51 98 Nasal Cannula 2
[2022-11-15] MEDS: PANTOprazole 40 MG TAB PO SCH (14:16)
--- NOTE | 2022-11-15 14:16 | Electrocardiogram Report ---
Test Reason : Blood Pressure : / mmHG Vent. Rate : 099 BPM Atrial Rate : 000 BPM P-R Int : 000 ms QRS Dur : 096 ms QT Int : 376 ms P-R-T Axes : 000 014 134 degrees QTc Int : 482 ms Atrial fibrillation T wave abnormality, consider lateral ischemia Abnormal ECG When compared with ECG of 24-SEP-2022 00:04, T wave inversion now evident in Anterolateral leads QT has lengthened Confirmed by Alon Solis ([id number]) on 11/15/2022 2:16:13 PM Referred By: REFERRED SELF Confirmed By:Kyle Solis
[2022-11-15] MEDS ORDERED: Nursing to Pharmacy Communication SCH ×2 (16:00→17:15)
[2022-11-15] MEDS ORDERED: KETOROLAC TROMETHAMINE 15 MG/ML VIAL IV PRN (16:26)
--- NOTE | 2022-11-15 16:49 | Hospitalist Progress Note ---
Date of Service November 15, 2022 Assessment & Plan (1) Altered mental status: Plan: Acute toxic encephalopathy present on admission due to baclofen and oxycodone administration. Now resolved. These medications have been discontinued. Supportive care (2) Adrenal insufficiency: Plan: Currently on parenteral hydrocortisone therapy since admission. He will be switched back to oral prednisone prior to discharge. (3) Hyponatremia: Plan: Mild on admission. Serum osmolarity is low at 269. He probably needs fluid restriction. Serial labs ordered. (4) Pressure ulcer, back, lower: Plan: In the setting of recent back surgery and being bedbound. Suspect presence of MRSA. Continue daptomycin. Local care. Appreciate orthopedic spine consultation and recommendations (5) HTN (hypertension): Plan: Hypotensive on admission. Now resolved. Metoprolol has been restarted. Uncertain if positive blood cultures are contaminant or pathogenic staph. Continue daptomycin for now (6) Prostate cancer metastatic to bone: Plan: Stage IV with bone mets. Zytiga has been restarted. Pain control measures (7) Spinal stenosis: Plan: S/p lumbar decompression, fusion with Dr. Velazco on 11/04/2022. Lumbar spine CT on 11/14 showed expected postsurgical soft tissue swelling/no acute fractures. No apparent need for any surgical reexploration at this time (8) Chronic steroid use: Plan: IV hydrocortisone at this time. Eventual switch back to oral prednisone (9) Depression: Plan: Suicidal ideations have been ruled out. Continue sertraline (10) DMII (diabetes mellitus, type 2): Plan: ADA diet. Sliding scale coverage. Basal insulin (11) Atrial fibrillation: Plan: Metoprolol has been restarted. Telemetry. Plan OT and PT assessments requested. Probable return to SNF at the time of discharge Admission and Anticipated Discharge Date Admission Date: November 14, 2022 Subjective Alert and oriented. Dr. Velazco has assessed the postoperative condition of his lumbar wound. There is no evidence of deep infection. Superficially, some skin breakdown was noted to have MRSA. Gram-positive cocci in the blood may simply be contaminant. Nevertheless he remains on daptomycin until final identification is seen. He presented with acute toxic encephalopathy which appears to have stopped. This was probably due to his baclofen and oxycodone medication. Review of Systems Review of Systems: Constitutional-no fever or chills ENT-no blurred vision, no double vision, no epistaxis, no sore throat Respiratory-no cough, no wheezing, no shortness of breath Cardiac-no palpitations, no chest pain, no syncope GI-no nausea, vomiting, diarrhea, melena, hematochezia -no urinary retention, no urinary incontinence, no dysuria, no hematuria Musculoskeletal-upper back pain with inspiration Skin-no bruising, no rashes, no pruritus Neuro-no isolated weakness, no paresthesia, no weakness Psych-no depression, no anxiety Physical Exam Physical Exam: General-alert and oriented x3, no fevers, no chills. Obese HEENT-head atraumatic and normocephalic, pupils equal and reactive to light, extraocular muscles intact Neck-no lymphadenopathy or thyromegaly, trachea midline Chest-clear to auscultation percussion. No rales wheezing or rhonchi Cardiac-regular rate and rhythm, normal S1 and S2, no murmurs Abdomen-normal bowel sounds, nontender, no hepatosplenomegaly Extremities-chronic nonpitting peripheral edema Neuro-cranial nerves II through XII intact, motor and sensory function within normal limits, strength symmetrical with generalized weakness, no focal deficits Psych-normal affect, normal mood Results & Data Results & Data Vital Signs (Past 12 Hours) Vital Signs Temp Pulse Pulse Pulse Resp BP BP 11/15/22 11:30 37.0 C 100 H 16 115/69 11/15/22 08:05 36.8 C 102 H 18 110/74 11/15/22 07:23 95 H 11/15/22 07:00 84 16 11/15/22 06:00 84 18 91/67 L 11/15/22 05:30 92 H 23 93/65 L 11/15/22 05:00 96 H 22 110/75 BP Pulse Ox O2 Del Method O2 Flow Rate 11/15/22 11:30 99 Room Air 11/15/22 08:05 95 Room Air 11/15/22 07:23 11/15/22 07:00 95/61 L 97 Room Air 2 11/15/22 06:00 94 Nasal Cannula 2 11/15/22 05:30 97 Nasal Cannula 2 11/15/22 05:00 96 Nasal Cannula 2 Laboratory Results 11/15/22 05:25 11/15/22 05:25 PG Care Time/CCT Total # of Minutes Spent Total Time Spent with Patient: Total time spent is greater than 50% in coordination of care (as documented) at patient's floor/unit and/or counseling patient: Coding Level of Care Code 75613 SUB INP/OBS CARE 3/50MIN Diagnoses Altered mental status R41.82 Adrenal insufficiency E27.40 Hyponatremia E87.1 Pressure ulcer, back, lower L89.109 HTN (hypertension) I10 Prostate cancer metastatic to bone C61; C79.51 Spinal stenosis M48.00 Spinal region: unspecified Chronic steroid use Depression F32.9 DMII (diabetes mellitus, type 2) E11.9 Atrial fibrillation I48.91 (7) Spinal stenosis Spinal region: unspecified Qualified Code(s): M48.00 - Spinal stenosis, site unspecified
[2022-11-15] MEDS: DAPTOmycin 550 MG in SYRINGE 0 ML IV SCH (16:56)
[2022-11-15] MEDS: ABIRATERONE ACETATE PO SCH (19:21)
[2022-11-15] MEDS ORDERED: SODIUM CHLORIDE 0.9% 250 ML IV ONE (21:30)
[2022-11-16] MEDS: SODIUM CHLORIDE 0.9% 1,000 ML IV SCH (03:36)
[2022-11-16 06:33] LABS: Hematocrit (blood only) 29.4 % (42.0-52.0); Hemoglobin 9.8 g/dl (14.0-18.0); Mean Corpuscular Hemoglobin 30.8 pg (25.0-34.0); Mean Corpuscular Hgb Conc 33.3 g/dL (32.0-36.0); Mean Corpuscular Volume 92.5 fL (80.0-100.0); Mean Platelet Volume 9.9 fL (9.4-12.4); Nucleated RBC # (auto) 0.05 K/uL (0.00-0.12); Nucleated RBC % (auto) 0.5 %; Platelet Count 226 K/uL (130-400); RDW Coefficient of Variation 15.1 % (11.5-14.5); Red Blood Count 3.18 M/uL (4.70-6.10); White Blood Count 10.09 K/ul (4.8-10.8)
[2022-11-16] MEDS: ABIRATERONE ACETATE PO SCH (06:51)
[2022-11-16 06:53] LABS: Creatinine Clr Calc Pharmacy 112.7 ml/min; Est GFR (African American) 101.8 ml/min; Est GFR (Non-African American) 87.9 ml/min; Potassium 4.1 mmol/L (3.5-5.1)
[2022-11-16 06:55] LABS: Basophils # (auto) 0.03 K/uL (0.00-0.20); Basophils % (auto) 0.3 %; Echinocytes 1+; Immature Granulocytes # (auto) 0.57 K/uL (0.01-0.20); Immature Granulocytes % (auto) 5.6 %; Lymphocytes # (auto) 0.38 K/uL (1.20-3.40); Lymphocytes % (auto) 3.8 %; Neutrophils # (auto) 8.71 K/uL (1.40-6.50); Neutrophils % (auto) 86.3 %; Polychromasia 1+
[2022-11-16] MEDS: INSULIN ASPART PER UNIT CHARGE SC SCH ×4 (08:34→22:02)
[2022-11-16] MEDS: HYDROCORTISONE SOD 50 MG in SYRINGE 0 ML IV SCH ×2 (08:35→20:17)
[2022-11-16] MEDS: METOPROLOL SUCC 50MG EXT REL TAB PO SCH (08:36)
[2022-11-16] MEDS: PANTOprazole 40 MG TAB PO SCH (08:36)
[2022-11-16] MEDS ORDERED: STAT IV/IM STA (08:57)
[2022-11-16] MEDS ORDERED: CALCIUM GLUCONATE 10% 1,000 MG in SODIUM CHLOR 0.9% MINI-B 50 ML IV ONE (08:57)
[2022-11-16] MEDS: LANTUS PER UNIT CHARGE SQ SCH ×2 (09:50→22:01)
--- NOTE | 2022-11-16 10:42 | Orthopedic Progress Note ---
Date of Service November 16, 2022 Assessment & Plan (1) Pressure ulcer, back, lower: Plan: At this time we will continue IV antibiotics. Again I would encourage him to get up out of bed when possible. Admission and Anticipated Discharge Date Admission Date: November 14, 2022 Subjective Patient struggling with diarrhea all morning. He states some of the medications is giving him hallucinations when he closes his eyes. He is denying any significant abdominal pain denies any significant back or bilateral lower extremity pain. Physical Exam Physical Exam: On exam he is currently on the bedpan. He does have good strength testing lower extremities. Results & Data Vital Signs (Past 12 Hours) Vital Signs Temp Pulse Resp BP Pulse Ox O2 Del Method 11/16/22 08:00 Room Air 11/16/22 08:15 36.8 C 94 H 19 120/88 97 Room Air 11/16/22 03:36 36.7 C 91 H 16 91/69 L 96 Room Air 11/16/22 00:00 36.6 C 96 H 18 96/62 L 96 Room Air 11/15/22 22:59 Room Air
[2022-11-16] MEDS: ACETAMINOPHEN 1,000 MG/100 ML VIAL IV PRN (12:34)
--- NOTE | 2022-11-16 12:40 | XCELERA ---
[id number]
--- NOTE | 2022-11-16 12:52 | Hospitalist Progress Note ---
Date of Service November 16, 2022 Assessment & Plan (1) MRSA bacteremia: Plan: With MRSA from wound on back and now in BCxs from 11/14 Concern given hardware in back -need to prevent seeding Discussed with Ortho Spine-no evidence of infection on current imaging from 11/14 -monitor for this No fevers or leukocytosis here -continue Daptomycin -check TTE for valvular veg, may need EMELYN but given hardware in back, may just opt for 6 weeks IV abx -consult ID for further recommendations -repeat BCxs drawn 11/16-follow -follow CBC, CMP (2) Adrenal insufficiency: Plan: Currently on parenteral hydrocortisone therapy since admission. He will be switched back to oral prednisone once stabilizes dc IVFs (3) Diarrhea: Plan: started profuse diarrhea 11/16 -check C. diff and if negative, can give Imodium (4) Hyponatremia: Plan: Na+ corrected for hyperglycemia is improved to 132 Ur Na+ low at 15, Ur Osm high Has peripheral edema dc NS IVFs and consider lasix Follow BMP (5) Pressure ulcer, back, lower: Plan: In the setting of recent back surgery and being bedbound. Wound cx with MRSA. Continue daptomycin. Local care. Offload pressure Appreciate orthopedic spine consultation and recommendations (6) Chronic steroid use: Plan: IV hydrocortisone at this time. Eventual switch back to oral prednisone BPs now improved (7) Spinal stenosis: Plan: S/p lumbar decompression, fusion with Dr. Velazco on 11/04/2022. Lumbar spine CT on 11/14 showed expected postsurgical soft tissue swelling/no acute fractures. No apparent need for any surgical reexploration at this time Dc tramadol as causing hallucinations dc IV tylenol and give APPA po 650mh po q6h prn add hydrocodone 5/325mg po q4h prn as this was tolerated last admission avoid baclofen in future as this caused significant lethargy in combo with oxycodone at SNF (8) Acute encephalopathy: Plan: Acute toxic encephalopathy present on admission due to baclofen and oxycodone administration. Now resolved. These medications have been discontinued. Supportive care (9) HTN (hypertension): Plan: Hypotensive on admission secondary to adrenal insufficiency in setting of infection Now resolved with IV hydrocortisone Metoprolol has been restarted Give IV calcium today for hypocalcemia nad also positive effect on BP (10) Prostate cancer metastatic to bone: Plan: Stage IV with bone mets. -continue Zytiga (11) Depression: Plan: Suicidal ideations have been ruled out. 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 Likely return to SNF at the time of discharge Admission and Anticipated Discharge Date Admission Date: November 14, 2022 Subjective Pt reports feeling "horrible" due to having explosive diarrhea all morning. Also reports having hallucinations visually after taking tramadol last night similar ot the reaction he had to gabapentin last admission. Would like something alternatively for pain. No abd pain. Tele with Af[facility], rates 90-100s I discussed his care with Dr. Velazco of Ortho spine re his MRSA bacteremia Review of Systems Review of Systems: All systems reviewed & are unremarkable except as noted in HPI & below Physical Exam Constitutional: WD/WN, vitals as above Neck: trachea midline, no thyromegaly Respiratory: normal respiratory effort, lungs clear to auscultation Cardiovascular: Rate/Rhythm: regular rate and + irregularly irregular Heart Sounds: no murmur Extremities: + edema (trace pitting edema legs bilat) Gastrointestinal (Abdomen): normal bowel sounds, soft, nontender, no hepatosplenomegaly Musculoskeletal: Extremities: extremities normal to inspection; no cyanosis and no clubbing Skin: Pictures of back wound reviewed in chart Neurologic: moves all extremities and awake; no focal motor deficits Psychiatric: A+Ox3, euthymic affect Results & Data Results & Data Vital Signs (Past 12 Hours) Vital Signs Temp Pulse Resp BP Pulse Ox O2 Del Method 11/16/22 12:05 36.8 C 100 H 19 136/96 96 Room Air 11/16/22 08:00 Room Air 11/16/22 08:15 36.8 C 94 H 19 120/88 97 Room Air 11/16/22 03:36 36.7 C 91 H 16 91/69 L 96 Room Air Laboratory Results CBC, BMP, calcium reviewed BCxs MRSA 1/4 Wound cx MRSA PG Care Time/CCT Total # of Minutes Spent Total Time Spent with Patient: Total time spent is greater than 50% in coordination of care (as documented) at patient's floor/unit and/or counseling patient: Coding Level of Care Code 64160 SUB INP/OBS CARE 3/50MIN Diagnoses MRSA bacteremia R78.81; B95.62 Adrenal insufficiency E27.40 Diarrhea R19.7 Hyponatremia E87.1 Pressure ulcer, back, lower L89.109 Chronic steroid use Spinal stenosis M48.00 Spinal region: unspecified Acute encephalopathy G93.40 HTN (hypertension) I10 Prostate cancer metastatic to bone C61; C79.51 Depression F32.9 DMII (diabetes mellitus, type 2) E11.9 Atrial fibrillation I48.91 IPMN (intraductal papillary mucinous neoplasm) D49.0 (7) Spinal stenosis Spinal region: unspecified Qualified Code(s): M48.00 - Spinal stenosis, site unspecified
[2022-11-16] MEDS: ENOXAPARIN INJ 40 MG/0.4 ML SYR SQ SCH (13:54)
[2022-11-16] MEDS ORDERED: LOPERAMIDE HCL 2 MG CAP PO STA (15:10)
[2022-11-16] MEDS: DAPTOmycin 550 MG in SYRINGE 0 ML IV SCH (15:52)
[2022-11-16] MEDS ORDERED: ACETAMINOPHEN 325 MG TAB PO PRN (16:30)
[2022-11-16] MEDS: HYDROCODONE/ACETAMOPHEN 5/325MG TAB PO PRN ×2 (17:21→22:01)
[2022-11-16] MEDS: LOPERAMIDE HCL 2 MG CAP PO PRN (22:01)
[2022-11-17] MEDS: ABIRATERONE ACETATE PO SCH (06:18)
[2022-11-17 07:40] LABS: Hematocrit (blood only) 30.4 % (42.0-52.0); Hemoglobin 9.9 g/dl (14.0-18.0); Mean Corpuscular Hemoglobin 30.7 pg (25.0-34.0); Mean Corpuscular Hgb Conc 32.6 g/dL (32.0-36.0); Mean Corpuscular Volume 94.4 fL (80.0-100.0); Mean Platelet Volume 9.5 fL (9.4-12.4); Nucleated RBC # (auto) 0.04 K/uL (0.00-0.12); Nucleated RBC % (auto) 0.5 %; Platelet Count 219 K/uL (130-400); RDW Coefficient of Variation 15.5 % (11.5-14.5); RDW Standard Deviation 52.1 fL (36.4-46.3); Red Blood Count 3.22 M/uL (4.70-6.10); White Blood Count 8.06 K/ul (4.8-10.8)
[2022-11-17 08:04] LABS: BUN Creatinine Ratio 21.1 (10-20); Basophils # (auto) 0.03 K/uL (0.00-0.20); Basophils % (auto) 0.4 %; Calcium 7.4 mg/dl (8.6-10.3); Creatinine Clr Calc Pharmacy 94.6 ml/min; Echinocytes 1+; Eosinophils # (auto) 0.03 K/uL (0.00-0.50); Eosinophils % (auto) 0.4 %; Est GFR (African American) 101.3 ml/min; Est GFR (Non-African American) 87.4 ml/min; Immature Granulocytes # (auto) 0.64 K/uL (0.01-0.20); Immature Granulocytes % (auto) 7.9 %; Lymphocytes # (auto) 0.66 K/uL (1.20-3.40); Lymphocytes % (auto) 8.2 %; Monocytes # (auto) 0.39 K/uL (0.11-0.59); Monocytes % (auto) 4.8 %; Neutrophils # (auto) 6.31 K/uL (1.40-6.50); Neutrophils % (auto) 78.3 %; Polychromasia 2+; Potassium 4.4 mmol/L (3.5-5.1)
[2022-11-17] MEDS: PANTOprazole 40 MG TAB PO SCH (08:07)
[2022-11-17] MEDS: METOPROLOL SUCC 50MG EXT REL TAB PO SCH (08:07)
[2022-11-17] MEDS ORDERED: FUROSEMIDE INJ 20 MG/2 ML VIAL IV ONE ×2 (08:13→16:47)
[2022-11-17] MEDS: LOPERAMIDE HCL 2 MG CAP PO PRN ×3 (08:25→21:16)
[2022-11-17] MEDS: HYDROCODONE/ACETAMOPHEN 5/325MG TAB PO PRN ×3 (08:25→21:16)
[2022-11-17] MEDS: LANTUS PER UNIT CHARGE SQ SCH ×2 (08:26→21:10)
[2022-11-17] MEDS: INSULIN ASPART PER UNIT CHARGE SC SCH ×4 (08:26→21:09)
[2022-11-17] MEDS: HYDROCORTISONE SOD 50 MG in SYRINGE 0 ML IV SCH (08:27)
[2022-11-17] MEDS: predniSONE 10 MG TABLET PO SCH ×2 (10:08→21:09)
[2022-11-17] MEDS: ENOXAPARIN INJ 40 MG/0.4 ML SYR SQ SCH (14:48)
[2022-11-17] MEDS: DAPTOmycin 550 MG in SYRINGE 0 ML IV SCH (16:12)
--- NOTE | 2022-11-17 17:01 | Hospitalist Progress Note ---
Date of Service November 17, 2022 Assessment & Plan (1) MRSA bacteremia: Plan: With MRSA from wound on back and now in BCxs from 11/14 Concern given hardware in back -need to prevent seeding Discussed with Ortho Spine-no evidence of infection on current imaging from 11/14 -monitor for this No fevers or leukocytosis here TTE neg for valvular veg Repeat BCxs 11/16 NGTD -continue Daptomycin -may need EMELYN but given hardware in back, may just opt for 6 weeks IV abx -consult ID for further recommendations -repeat BCxs drawn 11/16-follow -follow CBC, CMP (2) Adrenal insufficiency: Plan: BPs now normal--> convert back to prednisone 10mg po bid and dc IV HC taper back down to prednisone 5mg bid home dose over next 3 days (3) Diarrhea: Plan: started profuse diarrhea 11/16 C. diff negative slowing down now with Imodium (4) Hyponatremia: Plan: Na+ corrected for hyperglycemia was improved to 132 but now back to 130 Ur Na+ low at 15, Ur Osm high IVFs dcd on 11/16 Has peripheral edema and now some respiratory distress -give lasix x 2 doses today, follow I/Os, respiratory status Follow BMP, Mag in AM (5) Pressure ulcer, back, lower: Plan: In the setting of recent back surgery and being bedbound. Wound cx with MRSA. Continue daptomycin. Local care. Offload pressure Appreciate orthopedic spine consultation and recommendations-no concern for deeper infection around hardware (6) Chronic steroid use: Plan: IV hydrocortisone converted back to oral prednisone BPs now improved (7) Spinal stenosis: Plan: S/p lumbar decompression, fusion with Dr. Velazco on 11/04/2022. Lumbar spine CT on 11/14 showed expected postsurgical soft tissue swelling/no acu te fractures. No apparent need for any surgical reexploration at this time Dcd tramadol as causing hallucinations dc IV tylenol and give APPA po 650mh po q6h prn continue hydrocodone 5/325mg po q4h prn as this was tolerated last admission avoid baclofen in future as this caused significant lethargy in combo with oxycodone at SNF -needs rehab (8) Acute encephalopathy: Plan: Acute toxic encephalopathy present on admission due to baclofen and oxycodone administration. Now resolved. These medications have been discontinued. Supportive care (9) HTN (hypertension): Plan: Hypotensive on admission secondary to adrenal insufficiency in setting of infection Now resolved with IV hydrocortisone Metoprolol has been restarted continue to hold home amlodipine and lisinopril and may not need them for a while (10) Prostate cancer metastatic to bone: Plan: Stage IV with bone mets. -continue Zytiga (11) Depression: Plan: Suicidal ideations have been ruled out. 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 Not medically ready for discharge yet Admission and Anticipated Discharge Date Admission Date: November 14, 2022 Subjective Pt reports still some diarrhea but better than yesterday. Pain in back is controlled. Is feeling like he can't take a deep breath. Tele with Afib, rates 90-100s Physical Exam Constitutional: WD/WN, vitals as above Neck: trachea midline, no thyromegaly Respiratory: + tachypneic Auscultation: no rales, no rhonchi and no wheezes Cardiovascular: Rate/Rhythm: regular rate and + irregularly irregular Heart Sounds: no murmur Extremities: + edema (trace pitting edema legs bilat) Gastrointestinal (Abdomen): normal bowel sounds, soft, nontender, no hepatosplenomegaly Musculoskeletal: Extremities: extremities normal to inspection; no cyanosis and no clubbing Neurologic: moves all extremities and awake; no focal motor deficits Psychiatric: A+Ox3, euthymic affect Results & Data Results & Data Vital Signs (Past 12 Hours) Vital Signs Temp Pulse Resp BP Pulse Ox O2 Del Method 11/17/22 15:20 36.8 C 99 H 20 119/92 94 Room Air 11/17/22 11:20 36.6 C 99 H 18 121/88 93 Room Air 11/17/22 08:00 Room Air 11/17/22 07:30 36.7 C 99 H 18 140/95 93 Room Air Laboratory Results CBC, BMP, Blood cxs reviewed PG Care Time/CCT Total # of Minutes Spent Total Time Spent with Patient: Total time spent is greater than 50% in coordination of care (as documented) at patient's floor/unit and/or counseling patient: Coding Level of Care Code 80915 SUB INP/OBS CARE 3/50MIN Diagnoses MRSA bacteremia R78.81; B95.62 Adrenal insufficiency E27.40 Diarrhea R19.7 Hyponatremia E87.1 Pressure ulcer, back, lower L89.109 Chronic steroid use Spinal stenosis M48.00 Spinal region: unspecified Acute encephalopathy G93.40 HTN (hypertension) I10 Prostate cancer metastatic to bone C61; C79.51 Depression F32.9 DMII (diabetes mellitus, type 2) E11.9 Atrial fibrillation I48.91 IPMN (intraductal papillary mucinous neoplasm) D49.0 (7) Spinal stenosis Spinal region: unspecified Qualified Code(s): M48.00 - Spinal stenosis, site unspecified
[2022-11-17] MEDS: ADVANCED PROBIOTIC 1250 MG CAPSULE PO SCH (18:44)
[2022-11-18 06:37] LABS: Hematocrit (blood only) 29.5 % (42.0-52.0); Hemoglobin 9.8 g/dl (14.0-18.0); Mean Corpuscular Hgb Conc 33.2 g/dL (32.0-36.0); Mean Corpuscular Volume 93.4 fL (80.0-100.0); Mean Platelet Volume 9.6 fL (9.4-12.4); Nucleated RBC # (auto) 0.06 K/uL (0.00-0.12); Nucleated RBC % (auto) 0.8 %; Platelet Count 225 K/uL (130-400); RDW Coefficient of Variation 15.2 % (11.5-14.5); RDW Standard Deviation 50.9 fL (36.4-46.3); Red Blood Count 3.16 M/uL (4.70-6.10); White Blood Count 7.35 K/ul (4.8-10.8)
[2022-11-18 06:54] LABS: BUN Creatinine Ratio 22.4 (10-20); Creatinine Clr Calc Pharmacy 107.4 ml/min; Est GFR (African American) 106.7 ml/min; Magnesium 1.9 mg/dl (1.7-2.4); Potassium 3.7 mmol/L (3.5-5.1)
[2022-11-18 06:57] LABS: Basophils # (auto) 0.06 K/uL (0.00-0.20); Basophils % (auto) 0.8 %; Echinocytes 1+; Eosinophils # (auto) 0.02 K/uL (0.00-0.50); Eosinophils % (auto) 0.3 %; Immature Granulocytes # (auto) 0.62 K/uL (0.01-0.20); Immature Granulocytes % (auto) 8.4 %; Lymphocytes # (auto) 0.66 K/uL (1.20-3.40); Monocytes # (auto) 0.41 K/uL (0.11-0.59); Monocytes % (auto) 5.6 %; Neutrophils # (auto) 5.58 K/uL (1.40-6.50); Neutrophils % (auto) 75.9 %; Polychromasia 1+
--- NOTE | 2022-11-18 07:16 | Hospitalist Progress Note ---
Date of Service November 18, 2022 Assessment & Plan (1) MRSA bacteremia: Plan: Possible sepsis and Toxic metabolic encephalopathy-resolved 77-year-old male presents with altered mental status and lethargy. He was noted hypotensive, tachycardic, hypoxic, and with MRSA in back wound and in blood stream With MRSA from wound on back and now in BCxs from 11/14 Concern given hardware in back -need to prevent seeding Discussed with Ortho Spine-no evidence of infection on current imaging from 11/14-monitor for this No fevers or leukocytosis here TTE neg for valvular veg Repeat BCxs 11/16 NGTD -continue Daptomycin -may need EMELYN but given hardware in back, may just opt for 6 weeks IV abx -consult ID for further recommendations-awaiting final recommendations -repeat BCxs drawn [id number] -follow CBC, CMP -will need PICC line prior to discharge-verbally consented but will need to sign paper consent (2) Adrenal insufficiency: Plan: BPs now normal--> convert back to prednisone 10mg po bid and dc IV HC taper back down to prednisone 5mg bid home dose over next 2 days (3) Diarrhea: Plan: started profuse diarrhea 11/16 C. diff negative now much better with Imodium (4) Hyponatremia: Plan: Now improved with diuresis up to 132, 2/2 hypervolemia Ur Na+ low at 15, Ur Osm high IVFs dcd on 11/16 Had peripheral edema and some respiratory distress on 11/17--> now resolved with IV lasix -give lasix 20mg IV x 1 again today -follow I/Os, respiratory status -Follow BMP, Mag in AM (5) Pressure ulcer, back, lower: Plan: Pressure ulcer of lower back POA Stage 3 In the setting of recent back surgery and being bedbound. Wound cx with MRSA. Continue daptomycin. Local care. Offload pressure Appreciate orthopedic spine consultation and recommendations-no concern for deeper infection around hardware (6) Chronic steroid use: Plan: IV hydrocortisone converted back to oral prednisone BPs now improved (7) Spinal stenosis: Plan: S/p lumbar decompression, fusion with Dr. Velazco on 11/04/2022. Lumbar spine CT on 11/14 showed expected postsurgical soft tissue swelling/no acute fractures. No apparent need for any surgical reexploration at this time Dcd tramadol as causing hallucinations continue APAP po 650mh po q6h prn continue hydrocodone 5/325mg po q4h prn as this was tolerated last admission avoid baclofen in future as this caused significant lethargy in combo with oxycodone at SNF -needs rehab (8) Acute encephalopathy: Plan: Acute toxic encephalopathy present on admission due to baclofen and oxycodone administration. Now resolved. These medications have been discontinued. Supportive care (9) HTN (hypertension): Plan: Hypotensive on admission secondary to adrenal insufficiency in setting of infection Now resolved with IV hydrocortisone Metoprolol has been restarted continue to hold home amlodipine and lisinopril and may not need them for a whi le (10) Prostate cancer metastatic to bone: Plan: Stage IV with bone mets. -continue Zytiga (11) Depression: Plan: Suicidal ideations have been ruled out. 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 Not medically ready for discharge yet but getting close Admission and Anticipated Discharge Date Admission Date: November 14, 2022 Subjective Feeling better today but having pain in back with PT. Diarrhea has slowed way down with Imodium. No SOB today. Tele with rate controlled afib Physical Exam Constitutional: WD/WN, vitals as above Neck: trachea midline, no thyromegaly Respiratory: normal respiratory effort, lungs clear to auscultation Auscultation: no rales, no rhonchi and no wheezes Cardiovascular: Rate/Rhythm: regular rate and + irregularly irregular Heart Sounds: no murmur Extremities: + edema (trace pitting edema legs bilat) Gastrointestinal (Abdomen): normal bowel sounds, soft, nontender, no hepatosplenomegaly Musculoskeletal: Extremities: extremities normal to inspection; no cyanosis and no clubbing Neurologic: moves all extremities and awake; no focal motor deficits Psychiatric: A+Ox3, euthymic affect Results & Data Results & Data Vital Signs (Past 12 Hours) Vital Signs Temp Pulse Resp BP Pulse Ox O2 Del Method 11/18/22 03:24 36.6 C 97 H 18 125/89 94 Room Air 11/17/22 23:14 36.8 C 103 H 20 128/77 95 Room Air 11/17/22 19:29 36.6 C 96 H 19 110/77 95 Room Air Laboratory Results CBC, BMP, magnesium, BCxs reviewed PG Care Time/CCT Total # of Minutes Spent Total Time Spent with Patient: Total time spent is greater than 50% in coordination of care (as documented) at patient's floor/unit and/or counseling patient: Coding Level of Care Code 33865 SUB INP/OBS CARE 2/35MIN Diagnoses MRSA bacteremia R78.81; B95.62 Adrenal insufficiency E27.40 Diarrhea R19.7 Hyponatremia E87.1 Pressure ulcer, back, lower L89.109 Chronic steroid use Spinal stenosis M48.00 Spinal region: unspecified Acute encephalopathy G93.40 HTN (hypertension) I10 Prostate cancer metastatic to bone C61; C79.51 Depression F32.9 DMII (diabetes mellitus, type 2) E11.9 Atrial fibrillation I48.91 IPMN (intraductal papillary mucinous neoplasm) D49.0 (7) Spinal stenosis Spinal region: unspecified Qualified Code(s): M48.00 - Spinal stenosis, site unspecified
[2022-11-18] MEDS ORDERED: POTASSIUM CHLORIDE CRTAB 20 MEQ TABCR PO STA (07:21)
[2022-11-18] MEDS ORDERED: FUROSEMIDE INJ 20 MG/2 ML VIAL IV ONE (07:21)
[2022-11-18] MEDS ORDERED: MAGNESIUM SULFATE / D5W 1 GM/100 ML BAG IV ONE (07:30)
[2022-11-18] MEDS: INSULIN ASPART PER UNIT CHARGE SC SCH ×4 (08:28→20:34)
[2022-11-18] MEDS: HYDROCODONE/ACETAMOPHEN 5/325MG TAB PO PRN ×3 (08:28→20:31)
[2022-11-18] MEDS: LANTUS PER UNIT CHARGE SQ SCH ×2 (08:28→20:32)
[2022-11-18] MEDS: PANTOprazole 40 MG TAB PO SCH (08:29)
[2022-11-18] MEDS: METOPROLOL SUCC 50MG EXT REL TAB PO SCH (08:29)
[2022-11-18] MEDS: ADVANCED PROBIOTIC 1250 MG CAPSULE PO SCH (08:29)
[2022-11-18] MEDS: predniSONE 10 MG TABLET PO SCH ×2 (08:29→20:31)
[2022-11-18] MEDS: LOPERAMIDE HCL 2 MG CAP PO PRN ×2 (08:33→20:31)
[2022-11-18] MEDS: ABIRATERONE ACETATE PO SCH (11:18)
--- NOTE | 2022-11-18 11:44 | Orthopedic Progress Note ---
Date of Service November 18, 2022 Assessment & Plan (1) Spinal stenosis: Plan: This time we are awaiting a conference with infectious disease. After which time encourage physical therapy to begin transfers from bed to chair with transition to ambulation as tolerated. Admission and Anticipated Discharge Date Admission Date: November 14, 2022 Subjective Patient denies any significant back or leg pain. States he is quite comfortable at this time. Physical Exam Physical Exam: On exam he is able to roll over to his side with minimal assistance. Lumbar incision is intact there is very little evidence of erythema. There is no obvious drainage. He is nontender to palpation. He has a good strength testing lower extremities. Results & Data Vital Signs (Past 12 Hours) Vital Signs Temp Pulse Pulse Resp BP Pulse Ox O2 Del Method 11/18/22 11:41 36.4 C L 90 20 129/82 95 Room Air 11/18/22 07:00 93 H 11/18/22 08:02 36.9 C 104 H 18 135/92 93 Room Air 11/18/22 03:24 36.6 C 97 H 18 125/89 94 Room Air (1) Spinal stenosis Spinal region: unspecified Qualified Code(s): M48.00 - Spinal stenosis, site unspecified
[2022-11-18] MEDS: ENOXAPARIN INJ 40 MG/0.4 ML SYR SQ SCH (13:55)
--- NOTE | 2022-11-18 15:02 | Infectious Disease Consult ---
Date of Consultation November 18, 2022 Assessment & Plan (1) MRSA bacteremia: (2) Acute encephalopathy: Plan This is a 77 year old male with a pmh of prostate cancer with mets to spine, spinal stenosis sp lumbar decompression with hardware on 11/04 A fib, dms,presents with generalized pain and lethargy . He was admitted 10/24-11/12 and dx with covid, LL dvt and underwent lunbar decompression. He returns a few days later with lethargy and back pain. He denied fever, chillls, n/v/ sob, eller, change in urine and bowel habits. In ed noted to be hypotensive and tachycardic. Labs noted for wbc 10.52 bun/cr 16/0.85,procal 0.23 CT head unremarkable. CTA lung w/o PE. interstitial lung disease wo pna. CTAB shows postsurgical changes of decompression and fusion of the lower lumbar spine, redemonstration of a few sclerotic foci most prominently in the sacrum and Atrophic right kidney with severe right hydroureteronephrosis ( not new). CT lumbar spine shows interval placement of posterior fixation hardware with expected postsurgical soft tissue swelling and subcutaneous emphysema . A wound noted on his back and was cultured. WCx grew MRSA and BC grew in 1/4 bottles. EMELYN without vegatations. ID consulted for Mrsa bacteremia and back wound Micro BC 10/5 1/4 bottle MRSA (S vanc,dapt, tet) WC 10/5 MRSA BC 10/ NGTD Abx zosyn 10/-10/6 Dapto 10/- ongoing #MRSA bacteremia #MRSA Wound cx sp back surgery #Lumbar fixation hardware in place MRSA bacteremia is likely 2/2 post op MRSA wound surgical wound ( also growing MRSA0 . Wound is at prior drain site. there is some dried drainage at site on my exam Incision with tiny opening but wilkes. . TTE is negative for vegetation ,mild AV sclerosis. It is possible that the lumbar hardware was seeded 2/2 mrsa bacteremia. With mrsa bacteremia , one of the recommendations is usually = removal of hardware if able. IF no removal, treat w/ IV abx followed by suppression if hardware seeded. Unclear extent of wound infection. Since prior drain site opening has some drainage (although minimal, intermittent), would suggest additional imaging to rule deeper infection. ct spine with contast - lumbar shows shows posterior fixation hardware with postsurgical soft tissue swelling and subcutaneous emphysema. Recs- Continue IV Dapto will increase dosing to 8 mg/kg iv daily and check cpk consider soft tissue US at prior drain site Await BC to clear, after [address] picc Thank you for this consultation. ID will continue to follow. Krista Newsome MD, MPH Infectious Disease [facility], [facility] Call [phone] with questions Consultation Information Consultation was provided via telemedicine using two-way real-time interactive telecommunication between the patient and the telemedicine provider. For the duration of the visit, the provider was performing the assessment from a different facility than the patient. This includesuse of bluetooth stethoscope forauscultationperformed by the telepresenter that the telemedicine provider can hear if described in the physical exam. Scaffold Setter contact information: Please call [facility] Call Center [phone]. (Phone Number For Physician Use Only) After establishing a telemedicine visit, patient was: Patient was verified with two unique identifiers Time Spent with Patient: Initial => 75 min History of Present Illness Reason for Consultation: MRSA bactermia and back wound sp back surgery Requesting Physician: Nayeli Burt MD Attending Physician: Nayeli Burt MD History of Present Illness This is a 77 year old male with a pmh of prostate cancer with mets to spine, spinal stenosis sp lumbar decompression with hardware on 11/04 A fib, dms,presents with generalized pain and lethargy . He was admitted 10/24-11/12 and dx with covid, LL dvt and underwent lunbar decompression. He returns a few days later with lethargy and back pain. He denied fever, chillls, n/v/ sob, eller, change in urine and bowel habits. In ed noted to be hypotensive and tachycardic. Labs noted for wbc 10.52 bun/cr 16/0.85,procal 0.23 CT head unremarkable. CTA lung w/o PE. interstitial lung disease wo pna. CTAB shows postsurgical changes of decompression and fusion of the lower lumbar spine, redemonstration of a few sclerotic foci most prominently in the sacrum and Atrophic right kidney with severe right hydroureteronephrosis ( not new). CT lumbar spine shows interval placement of posterior fixation hardware with expected postsurgical soft tissue swelling and subcutaneous emphysema . A wound noted on his back and was cultured. WCx grew MRSA and BC grew in 1/4 bottles. EMELYN without vegatations. ID consulted for Mrsa bacteremia and back wound. Allergies Allergy/AdvReac Type Severity Reaction Status Date / Time cat dander Allergy Severe CAN CAUSE Verified 09/24/22 00:30 ASTHMA ATTACK-itchy eyes, congestion gabapentin AdvReac Intermediate Hallucinati Verified 11/16/22 12:42 ng tramadol AdvReac Intermediate Hallucinati Verified 11/16/22 12:42 ng Home Medications Medication Instructions Recorded Confirmed Type abiraterone 500 mg tablet (Zytiga) 1,000 mg PO QAM 07/13/18 11/14/22 History calcium carbonate 500 mg-vitamin 1 tab PO QAM 07/13/18 11/14/22 History D3 5 mcg (200 unit) tablet (Calcium 500 + D) sertraline 100 mg tablet 100 mg PO QAM #90 tabs 09/01/19 11/14/22 Rx oxycodone 5 mg tablet 5 mg PO Q4H PRN Pain 03/16/20 11/14/22 History metoprolol succinate 200 mg 200 mg PO DAILY #90 tabs 07/15/22 11/14/22 Rx tablet,extended release 24 hr amlodipine 10 mg tablet 10 mg PO QAM #90 tabs 07/18/22 11/14/22 Rx lisinopril 20 mg tablet 20 mg PO DAILY #90 tabs 07/23/22 11/14/22 Rx omeprazole 20 mg delayed 20 mg PO QAM #90 tabs 09/03/22 11/14/22 Rx release,disintegrating tablet multivitamin with minerals 1 tab PO DAILY 09/24/22 11/14/22 History ondansetron 4 mg disintegrating 4 mg PO Q8H PRN NAUSEA/VOMITING 09/24/22 11/14/22 History tablet triamcinolone acetonide 0.1 % 1 applic topical .AMPM 09/24/22 11/14/22 History topical cream baclofen 10 mg tablet 10 mg PO TID #0 tabs 10/19/22 11/14/22 Rx loratadine 10 mg tablet (Wal-itin) 10 mg PO DAILY #0 tabs 10/19/22 11/14/22 Rx glimepiride 2 mg tablet 2 mg PO QAM 10/24/22 11/14/22 History prednisone 5 mg tablet 5 mg PO BID 11/06/22 11/14/22 History amoxicillin 875 mg tablet 875 mg PO BID #0 tabs 11/12/22 11/14/22 Rx cyanocobalamin (vitamin B-12) 500 1,000 mcg PO QAM #0 tabs 11/12/22 11/14/22 Rx mcg tablet acetaminophen 325 mg tablet 650 mg PO Q6 PRN Pain 1-4 11/14/22 11/14/22 History atorvastatin 20 mg tablet 20 mg PO HS 11/14/22 11/14/22 History nitroglycerin 0.4 mg sublingual 0.4 mg sublingual Q5M PRN Chest 11/14/22 11/14/22 History tablet (Nitrostat) Pain oxycodone 10 mg tablet,crush 10 mg PO AMHS 11/14/22 11/14/22 History resistant,extended release 12 hr (OxyContin) Patient History Medical History (Updated 11/19/22 @ 00:08 by Yashira Quinones) Acute urinary retention Ambulatory dysfunction Androgen-induced osteoporosis Anxiety Atrial fibrillation DX 2019 - FOLLOWS W/ DR. ROBERTA Armas Chronic steroid use PROSTATE CANCER COVID-19 09/2022 requiring hospitalization COVID-19 Depression DMII (diabetes mellitus, type 2) Fatigue HTN (hypertension) Hydronephrosis of right kidney Hypercholesterolemia Hyperlipidemia IBS (irritable bowel syndrome) Insomnia Resolved IPMN (intraductal papillary mucinous neoplasm) Kidney stones Lumbar spondylosis Morbid obesity Osteoarthritis Prostate cancer metastatic to bone Prostate nodule Psychosis Had hx of depression with psychotic episode - resolved Renal insufficiency Sacral lesion Spinal stenosis Spinal stenosis Thrombocytopenia Ureter injury OBSTRUCTION OF RT URETER 2/2 PROSTATE CA Urinary frequency Urinary incontinence Urge incontinence Urinary retention Resolved Urinary tract infection Surgical History History of cataract surgery 2018 - Bilat History of colonoscopy 2011 (due in 2021) History of prostate biopsy 2014 History of tonsillectomy as a child History of tooth extraction in age 19's S/P TURP 2014 Family History Mother , Passed age 60 of sepsis Gallbladder disease Mental disorder Psychological disorder Father , Passed age 89 of sepsis (infected bladder stones) Congestive heart failure Bladder stones Prostate cancer no treatment needed Brother Heart failure Kidney stones Kidney disease Bladder cancer, Onset Age: 75 Myocardial infarction Grandmother (Paternal) , Passed age 93 of old age Breast cancer, Onset Age: 40 double mastectomy and then did well Sister , Passed age 2 of pneumonia No problems noted. Other Has no children Denies family history of Colon cancer Ovarian cancer Social History Smoking Status: Former smoker Tobacco Type: Cigarettes Age Started Using Tobacco: 20; Age Quit Using Tobacco: 39; packs per day: 0.5; Smoking End Date: 30 years ago; Second Hand Exposure: No; Do You Dip or Chew Tobacco: No; Tobacco Cessation Education Requested by Patient: No Hx Alcohol Use: No Hx Substance Use: No Preferred Language: Wallisian Communication Ability: Effective Communication Tools: Other Visual Impairment: Limited Hearing Ability: Normal Public Welfare Worker Required: No Beliefs That Will Affect Care: None marital status: Current Living Situation: [facility] Current Living Situation Comment: LIVES W/ [facility] - current occupational status: retired 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 Pertinent positives as per HPI . Physical Exam Physical Exam: Gen-Nad neck supple Abd- obese Ext- BL LE edema Back - lumbar incision not red or warm. there is a tiny opening- dry. Not tender. Areas of ecchymosis noted There is opening more laterally at prior drain site that had a dressing with a dark appearing fluid that is now dry. Dressing removed. Mild pain , no current drainage. Neuro AAO*3 Results & Data Vital Signs (Past 12 Hours) Vital Signs Temp Pulse Pulse Resp BP Pulse Ox O2 Del Method 11/18/22 11:41 36.4 C L 90 20 129/82 95 Room Air 11/18/22 07:00 93 H 11/18/22 08:02 36.9 C 104 H 18 135/92 93 Room Air 11/18/22 03:24 36.6 C 97 H 18 125/89 94 Room Air Laboratory Results Laboratory Results - last 48 hr 11/16/22 11/17/22 11/17/22 20:32 06:54 06:54 WBC 8.06 RBC 3.22 L Hgb 9.9 L Hct 30.4 L MCV 94.4 MCH 30.7 MCHC 32.6 RDW Std Deviation 52.1 H RDW Coeff of Tramaine 15.5 H Plt Count 219 MPV 9.5 Immature Gran % (Auto) 7.9 Neut % (Auto) 78.3 Lymph % (Auto) 8.2 Sterling % (Auto) 4.8 Eos % (Auto) 0.4 Baso % (Auto) 0.4 Neut # (Auto) 6.31 Lymph # (Auto) 0.66 L Sterling # (Auto) 0.39 Eos # (Auto) 0.03 Baso # (Auto) 0.03 Immature Gran # (Auto) 0.64 H Absolute Nucleated RBC 0.04 Nucleated RBC % (auto) 0.5 Polychromasia 2+ Echinocytes 1+ Sodium 130 L Potassium 4.4 Chloride 100 Carbon Dioxide 24 Anion Gap 6 BUN 16 Creatinine 0.76 Est Cr Clr Drug Dosing 94.6 Est GFR ( Amer) 101.3 Est GFR (Non-Af Amer) 87.4 BUN/Creatinine Ratio 21.1 H Glucose 168 H POC Glucose 236 H Calcium 7.4 L Magnesium 11/17/22 11/17/22 11/17/22 07:17 11:06 16:24 WBC RBC Hgb Hct MCV MCH MCHC RDW Std Deviation RDW Coeff of Tramaine Plt Count MPV Immature Gran % (Auto) Neut % (Auto) Lymph % (Auto) Sterling % (Auto) Eos % (Auto) Baso % (Auto) Neut # (Auto) Lymph # (Auto) Sterling # (Auto) Eos # (Auto) Baso # (Auto) Immature Gran # (Auto) Absolute Nucleated RBC Nucleated RBC % (auto) Polychromasia Echinocytes Sodium Potassium Chloride Carbon Dioxide Anion Gap BUN Creatinine Est Cr Clr Drug Dosing Est GFR ( Amer) Est GFR (Non-Af Amer) BUN/Creatinine Ratio Glucose POC Glucose 158 H 157 H 267 H Calcium Magnesium 11/17/22 11/18/22 11/18/22 20:59 05:45 05:45 WBC 7.35 RBC 3.16 L Hgb 9.8 L Hct 29.5 L MCV 93.4 MCH 31.0 MCHC 33.2 RDW Std Deviation 50.9 H RDW Coeff of Tramaine 15.2 H Plt Count 225 MPV 9.6 Immature Gran % (Auto) 8.4 Neut % (Auto) 75.9 Lymph % (Auto) 9.0 Sterling % (Auto) 5.6 Eos % (Auto) 0.3 Baso % (Auto) 0.8 Neut # (Auto) 5.58 Lymph # (Auto) 0.66 L Sterling # (Auto) 0.41 Eos # (Auto) 0.02 Baso # (Auto) 0.06 Immature Gran # (Auto) 0.62 H Absolute Nucleated RBC 0.06 Nucleated RBC % (auto) 0.8 Polychromasia 1+ Echinocytes 1+ Sodium 132 L Potassium 3.7 Chloride 101 Carbon Dioxide 22 Anion Gap 9 BUN 15 Creatinine 0.67 Est Cr Clr Drug Dosing 107.4 Est GFR ( Amer) 106.7 Est GFR (Non-Af Amer) 92.0 BUN/Creatinine Ratio 22.4 H Glucose 177 H POC Glucose 275 H Calcium 7.0 L Magnesium 1.9 11/18/22 11/18/22 11/18/22 07:15 11:19 16:27 WBC RBC Hgb Hct MCV MCH MCHC RDW Std Deviation RDW Coeff of Tramaine Plt Count MPV Immature Gran % (Auto) Neut % (Auto) Lymph % (Auto) Sterling % (Auto) Eos % (Auto) Baso % (Auto) Neut # (Auto) Lymph # (Auto) Sterling # (Auto) Eos # (Auto) Baso # (Auto) Immature Gran # (Auto) Absolute Nucleated RBC Nucleated RBC % (auto) Polychromasia Echinocytes Sodium Potassium Chloride Carbon Dioxide Anion Gap BUN Creatinine Est Cr Clr Drug Dosing Est GFR ( Amer) Est GFR (Non-Af Amer) BUN/Creatinine Ratio Glucose POC Glucose 144 H 136 H 157 H Calcium Magnesium Diagnostic Findings Microbiology 11/16/22 05:53 Blood Aerobic Blood Culture - Preliminary No growth in Aerobic bottle after 48 hours. 11/16/22 05:53 Blood Anaerobic Blood Culture - Final 11/16/22 05:46 Blood Aerobic Blood Culture - Preliminary No growth in Aerobic bottle after 48 hours. 11/16/22 05:46 Blood Anaerobic Blood Culture - Preliminary No growth in Anaerobic bottle after 48 hours. 11/14/22 14:53 Blood Aerobic Blood Culture - Preliminary No growth in Aerobic bottle after 48 hours. 11/14/22 14:53 Blood Anaerobic Blood Culture - Preliminary Staph aureus MRSA 11/14/22 14:50 Blood Aerobic Blood Culture - Preliminary No growth in Aerobic bottle after 48 hours. 11/14/22 14:50 Blood Anaerobic Blood Culture - Preliminary No growth in Anaerobic bottle after 48 hours. 11/14/22 18:10 Back Gram Stain - Final 11/14/22 18:10 Back Wound Culture - Final Staph aureus MRSA 11/14/22 CXR IMPRESSION: No acute cardiopulmonary abnormality is identified. Chest CTA IMPRESSION: 1. No acute abnormality and in particular no evidence of pulmonary embolus within the limits of artifacts due to patient positioning. 2. Interstitial lung disease and atelectasis without evidence of pneumonia. CT head IMPRESSION: There is no hemorrhage, mass effect, or evidence of acute savana Ct pelvis/ab IMPRESSION: 1. Postsurgical changes of decompression and fusion of the lower lumbar spine. 2. Redemonstration of a few sclerotic foci most prominently in the sacrum. 3. Atrophic right kidney with severe right hydroureteronephrosis again seen. Redemonstration of cystic lesion in tail which may represent IPMN CT cervical spine IMPRESSION: 1. No acute bony abnormality is seen involving the cervical spine. 2. Osteopenia and spondylotic change as above. Ct lumbar spine IMPRESSION: Interval placement of posterior fixation hardware with expected postsurgical soft tissue swelling and subcutaneous emphysema. No acute fractures are seen. Ct throacic spine IMPRESSION: 1. No acute bony abnormality is seen involving the thoracic spine. 2. No lytic or blastic lesion is seen. Medications Administered Home Medications Medication Instructions Recorded Confirmed Last Taken abiraterone 500 mg tablet (Zytiga) 1,000 mg PO QAM 07/13/18 11/14/22 11/14/22 calcium carbonate 500 mg-vitamin 1 tab PO QAM 07/13/18 11/14/22 11/14/22 D3 5 mcg (200 unit) tablet (Calcium 500 + D) sertraline 100 mg tablet 100 mg PO QAM #90 tabs 09/01/19 11/14/22 11/14/22 oxycodone 5 mg tablet 5 mg PO Q4H PRN Pain 03/16/20 11/14/22 11/14/22 12:00 metoprolol succinate 200 mg 200 mg PO DAILY #90 tabs 07/15/22 11/14/22 11/14/22 tablet,extended release 24 hr amlodipine 10 mg tablet 10 mg PO QAM #90 tabs 07/18/22 11/14/22 11/14/22 lisinopril 20 mg tablet 20 mg PO DAILY #90 tabs 07/23/22 11/14/22 11/14/22 omeprazole 20 mg delayed 20 mg PO QAM #90 tabs 09/03/22 11/14/22 11/14/22 release,disintegrating tablet multivitamin with minerals 1 tab PO DAILY 09/24/22 11/14/22 11/14/22 ondansetron 4 mg disintegrating 4 mg PO Q8H PRN NAUSEA/VOMITING 09/24/22 11/14/22 11/13/22 tablet triamcinolone acetonide 0.1 % 1 applic topical .AMPM 09/24/22 11/14/22 10/24/22 topical cream baclofen 10 mg tablet 10 mg PO TID #0 tabs 10/19/22 11/14/22 11/14/22 12:30 loratadine 10 mg tablet (Wal-itin) 10 mg PO DAILY #0 tabs 10/19/22 11/14/22 11/14/22 glimepiride 2 mg tablet 2 mg PO QAM 10/24/22 11/14/22 11/14/22 prednisone 5 mg tablet 5 mg PO BID 11/06/22 11/14/22 11/14/22 08:30 amoxicillin 875 mg tablet 875 mg PO BID #0 tabs 11/12/22 11/14/22 11/14/22 08:30 cyanocobalamin (vitamin B-12) 500 1,000 mcg PO QAM #0 tabs 11/12/22 11/14/22 11/14/22 mcg tablet acetaminophen 325 mg tablet 650 mg PO Q6 PRN Pain 1-4 11/14/22 11/14/22 11/12/22 atorvastatin 20 mg tablet 20 mg PO HS 11/14/22 11/14/22 11/13/22 20:30 nitroglycerin 0.4 mg sublingual 0.4 mg sublingual Q5M PRN Chest 11/14/22 11/14/22 Unknown tablet (Nitrostat) Pain oxycodone 10 mg tablet,crush 10 mg PO AMHS 11/14/22 11/14/22 11/14/22 08:30 resistant,extended release 12 hr (OxyContin) Active Medications Generic Name Dose Route Start Last Admin Trade Name Freq PRN Reason Stop Dose Admin Abiraterone Acetate 2 each 11/15/22 16:45 11/18/22 11:18 Abiraterone Acetate PO 12/15/22 16:44 2 each DAILY MIESHA Administration Hydrocodone Bitart/Acetaminophen 1 tab 11/16/22 12:40 11/18/22 13:55 Hydrocodone/Acetamophen 5/325mg Tab PO 11/30/22 12:39 1 tab Q4H PRN Administration moderate-severe Pain Enoxaparin Sodium 40 mg 11/16/22 14:00 11/18/22 13:55 Enoxaparin Inj 40 Mg/0.4 Ml Syr SQ 12/16/22 13:59 40 mg Q24H MIESHA Administration Daptomycin 550 mg/ Syringe 11 mls @ 5.5 mls/min 11/15/22 16:00 11/18/22 16:58 IV 11/29/22 15:59 5.5 mls/min Q24H MIESHA Administration Protocol Insulin Aspart 0 units 11/15/22 21:00 11/18/22 16:58 Insulin Aspart Per Unit Charge SC 12/15/22 20:59 3 units ACHS MIESHA Administration Insulin Glargine 5 units 11/16/22 09:15 11/18/22 08:28 Lantus Per Unit Charge SQ 12/16/22 09:14 5 units BID MIESHA Administration Ketorolac Tromethamine 15 mg 11/15/22 16:26 11/15/22 16:55 Ketorolac Tromethamine 15 Mg/Ml Vial IV 15 mg Q6H PRN Administration Pain Lactobacillus Acidophilus 2 cap 11/17/22 18:15 11/18/22 08:29 Advanced Probiotic 1250 Mg Capsule PO 12/17/22 18:14 2 cap DAILY MIESHA Administration Loperamide HCl 2 mg 11/16/22 15:10 11/18/22 08:33 Loperamide Hcl 2 Mg Cap PO 12/16/22 15:09 2 mg Q6H PRN Administration Loose Stool Metoprolol Succinate 200 mg 11/15/22 09:00 10 08:29 Metoprolol Succ 50mg Ext Rel Tab PO 12/15/22 08:59 200 mg QAM MIESHA Administration Pantoprazole Sodium 40 mg 11/15/22 09:00 11/18/22 08:29 Pantoprazole 40 Mg Tab PO 12/15/22 08:59 40 mg QAM MIESHA Administration Prednisone 10 mg 11/17/22 09:00 11/18/22 08:29 Prednisone 10 Mg Tablet PO 12/17/22 08:59 10 mg BID MIESHA Administration
[2022-11-18] MEDS: DAPTOmycin 550 MG in SYRINGE 0 ML IV SCH (16:58)
[2022-11-19] MEDS: HYDROCODONE/ACETAMOPHEN 5/325MG TAB PO PRN ×3 (03:00→20:55)
[2022-11-19 06:22] LABS: Hematocrit (blood only) 31.3 % (42.0-52.0); Hemoglobin 10.3 g/dl (14.0-18.0); Mean Corpuscular Hemoglobin 30.9 pg (25.0-34.0); Mean Corpuscular Hgb Conc 32.9 g/dL (32.0-36.0); Mean Platelet Volume 9.3 fL (9.4-12.4); Nucleated RBC # (auto) 0.08 K/uL (0.00-0.12); Platelet Count 228 K/uL (130-400); RDW Coefficient of Variation 15.9 % (11.5-14.5); RDW Standard Deviation 52.2 fL (36.4-46.3); Red Blood Count 3.33 M/uL (4.70-6.10); White Blood Count 7.94 K/ul (4.8-10.8)
[2022-11-19] MEDS: ABIRATERONE ACETATE PO SCH (06:28)
[2022-11-19 06:46] LABS: ALC (manual) 0.32 K/uL (1.2-3.4); ANC (manual) 6.59 K/uL (1.4-6.5); Eosinophils # (manual) 0.16 K/uL (0-0.50); Eosinophils % (manual) 2 %; Lymphocytes # (manual) 0.32 K/uL (1.2-3.4); Lymphocytes % (manual) 4 %; Metamyelocytes # (manual) 0.32 K/uL (0-0); Metamyelocytes % (manual) 4 %; Monocytes # (manual) 0.24 K/uL (0.11-0.59); Monocytes % (manual) 3 %; Myelocytes # (manual) 0.32 K/uL (0-0); Myelocytes % (manual) 4 %; Neutrophils # (manual) 6.59 K/uL (1.40-6.50); Neutrophils % (manual) 83 %; Polychromasia 1+
[2022-11-19 06:56] LABS: Calcium 7.1 mg/dl (8.6-10.3); Creatinine Clr Calc Pharmacy 102.2 ml/min; Est GFR (African American) 104.8 ml/min; Est GFR (Non-African American) 90.4 ml/min; Magnesium 1.8 mg/dl (1.7-2.4); Potassium 4.6 mmol/L (3.5-5.1)
[2022-11-19] MEDS: INSULIN ASPART PER UNIT CHARGE SC SCH ×4 (08:42→20:50)
[2022-11-19] MEDS: LANTUS PER UNIT CHARGE SQ SCH ×2 (08:42→20:56)
[2022-11-19] MEDS: METOPROLOL SUCC 50MG EXT REL TAB PO SCH (08:43)
[2022-11-19] MEDS: predniSONE 10 MG TABLET PO SCH (08:43)
[2022-11-19] MEDS: ADVANCED PROBIOTIC 1250 MG CAPSULE PO SCH (08:43)
[2022-11-19] MEDS: PANTOprazole 40 MG TAB PO SCH (08:43)
[2022-11-19] MEDS ORDERED: LORazepam 2 MG/1 ML VIAL IV STA (09:19)
--- NOTE | 2022-11-19 11:30 | Magnetic Resonance Report ---
MRI OF THE LUMBAR SPINE WITHOUT CONTRAST CLINICAL HISTORY: Postoperative evaluation. COMPARISON STUDY: Lumbar spine MRI October 13, 2022. Lumbar spine CT November 14, 2022. TECHNIQUE: Utilizing a 1.5 Syeda magnet and dedicated coil, multiplanar, multiecho imaging of the [facility] spine was performed without IV contrast. FINDINGS: This exam is mildly compromised by artifact. For purposes of numbering on this exam, the L5-S1 disc s pace is assigned to axial image 30 of 36. There are postoperative findings consistent with L3-S1 disc ectomy, posterior decompression and bilateral pedicle screw fusion. A laminectomy bed fluid collectio n measures 12.8 x 11.5 x 4.5 cm. Layering material within the dependent aspect of the fluid collectio n is noted. This has significant mass effect upon the thecal sac and results in moderate to severe ce ntral canal stenosis. In addition, suspected subdural multiloculated fluid collection is noted. The l argest component is at the L2 level, measuring 4.2 x 0.8 x 1.4 cm. However, there is probable anterio r subdural component at the T12-L1 and additional posterior subdural component at the T11-T12 level. This may be partially imaged on this exam. There is mild edema within the bilateral psoas muscles. No definite fluid collections within the psoas muscles are noted. T1 and T2 hypointense foci within the lower sacrum are better depicted on prior CT and PET/CT. No additional suspicious osseous lesions ar e present. There is increased fluid signal within the L3-L4 and L4-L5 disc spaces. This is nonspecifi c. This could be postsurgical. No definite evidence for osteomyelitis on this examination. IMPRESSION: 1. Status post L3-S1 discectomy, posterior decompression bilateral pedicle screw fusion. 4.8 x 11.5 x 4.5 cm laminectomy bed fluid collection adjacent to the hardware. This has significant mass effect u luis the thecal sac and results in moderate to severe central canal stenosis. This is nonspecific in t he early postoperative setting and sterility cannot be assessed by MRI. 2. Multiloculated suspected subdural collections within the lower thoracic and upper lumbar canals, d escribed above. 3. Increased fluid signal within the L3-L4 and L4-L5 disc spaces. This is probably postsurgical. Disc itis could appear similar. However, an adjacent endplates are intact without evidence for acute osteo myelitis. 4. Nonspecific edema within the bilateral psoas muscles without associated fluid collection. 5. Exam mildly compromised by motion artifact. ACT 112: Negative or not required by law. Electronically signed by: Americo Woodard M.D. 11/19/2022 11:29 AM
--- NOTE | 2022-11-19 11:46 | Ultrasound Report ---
US softtissue abdwall/lwr back CLINICAL HISTORY: assess for abscess at lower back wound site COMPARISON STUDY: CT of the abdomen and pelvis November 14, 2022. TECHNIQUE: Sonography of the back at site of recent surgery was performed. FINDINGS: There is a small subincisional fluid collection measures 1.3 x 0.6 x 0.6 cm. This contains debris. IMPRESSION: Small subincisional debris-containing fluid collection which measures 1.3 x 0.6 x 0.6 cm . This is nonspecific in the early postoperative setting and could reflect a complex seroma or hemat myra. A small abscess could appear similar. ACT 112: Negative or not required by law. Electronically signed by: Americo Woodard M.D. 11/19/2022 11:44 AM
[2022-11-19] MEDS: ENOXAPARIN INJ 40 MG/0.4 ML SYR SQ SCH (14:18)
[2022-11-19] MEDS: DAPTOmycin 550 MG in SYRINGE 0 ML IV SCH (16:31)
[2022-11-19] MEDS ORDERED: DAPTOmycin 250 MG in SYRINGE 0 ML IV SCH (17:00)
--- NOTE | 2022-11-19 17:45 | Hospitalist Progress Note ---
Date of Service November 19, 2022 Assessment & Plan (1) MRSA bacteremia: Plan: Possible sepsis and Toxic metabolic encephalopathy-resolved 77-year-old male presents with altered mental status and lethargy. He was noted hypotensive, tachycardic, hypoxic, and with MRSA in back wound and in blood stream With MRSA from wound on back and now in BCxs from 11/14 Concern given hardware in back -need to prevent seeding Discussed with Ortho Spine-no evidence of infection on initial imaging from 11/14 No fevers or leukocytosis here TTE neg for valvular veg Repeat BCxs 11/16 NGTD Had MRI L-spine 11/19 which showed 4.8 x 11.5 x 4.5 cm laminectomy bed fluid co llection adjacent to the hardware. This has significant mass effect upon the thecal sac and results in moderate to severe central canal stenosis. This is nonspecific in the early postoperative setting and sterility cannot be assessed by MRI. Multiloculated suspected subdural collections within the lower thoracic and upper lumbar canals. Increased fluid signal within the L3-L4 and L4-L5 disc spaces. This is probably postsurgical. Discitis could appear similar. However, an adjacent endplates are intact without evidence for acute osteomyelitis. Nonspecific edema within the bilateral psoas muscles without associated fluid collection. Discussed with Ortho and ID--> plans for OR Wed for wash out of possible infection in spine -continue Daptomycin but increase dose to 8mg/kg likely will need 6 weeks IV abx -consult ID for further recommendations appreciated -repeat BCxs drawn [id number] -follow CBC, CMP -will need PICC line prior to discharge-verbally consented but will need to sign paper consent-wait until closer to discharge for placement (2) Adrenal insufficiency: Plan: BPs now normal--> converted back to prednisone 10mg po bid but now will concert back to IV HC 100mg q12 tonight for perioperative stress dose steroids (3) Diarrhea: Plan: started profuse diarrhea 11/16 C. diff negative now much better with Imodium (4) Hyponatremia: Plan: Now improved with diuresis up to 132, 2/2 hypervolemia Ur Na+ low at 15, Ur Osm high IVFs dcd on 11/16 Had peripheral edema and some respiratory distress on 11/17--> now resolved with IV lasix x 3 doses -follow I/Os, respiratory status -Follow BMP, Mag in AM (5) Pressure ulcer, back, lower: Plan: Pressure ulcer of lower back POA Stage 3 In the setting of recent back surgery and being bedbound. Wound cx with MRSA. Continue daptomycin. Local care. Offload pressure US 10/10 with small fluid collection underneath (6) Chronic steroid use: Plan: IV hydrocortisone as above for surgery -convert to oral prednisone after a few days of stress dosed steroids (7) Spinal stenosis: Plan: S/p lumbar decompression, fusion with Dr. Velazco on 11/04/2022. Lumbar spine CT on 11/14 showed expected postsurgical soft tissue swelling/no acute fractures. No apparent need for any surgical reexploration at this time Dcd tramadol as causing hallucinations continue APAP po 650mh po q6h prn continue hydrocodone 5/325mg po q4h prn as this was tolerated last admission avoid baclofen in future as this caused significant lethargy in combo with oxycodone at SNF -needs rehab (8) Acute encephalopathy: Plan: Acute toxic encephalopathy present on admission due to baclofen and oxycodone administration along with sepsis and bacteremia. Now resolved. These medications have been discontinued. Supportive care (9) HTN (hypertension): Plan: Hypotensive on admission secondary to adrenal insufficiency in setting of infection Now resolved with IV hydrocortisone Metoprolol has been restarted continue to hold home amlodipine and lisinopril and may not need them for a while (10) Prostate cancer metastatic to bone: Plan: Stage IV with bone mets. -continue Zytiga (11) Depression: Plan: Suicidal ideations have been ruled out. 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 Not medically ready for discharge yet Admission and Anticipated Discharge Date Admission Date: November 14, 2022 Subjective Pt reports frustration with his whole situation, weakness. Still with back pain. No SOB today. No diarrhea today. I discussed his care with Ortho Spine and ID. Plans for OR tomorrow for washout of infection around hardware. Tele with Afib rates 90-100s Physical Exam Constitutional: WD/WN, vitals as above Neck: trachea midline, no thyromegaly Respiratory: normal respiratory effort, lungs clear to auscultation Cardiovascular: Rate/Rhythm: regular rate and + irregularly irregular Heart Sounds: no murmur Extremities: + edema (trace pitting edema legs bilat, improved) Gastrointestinal (Abdomen): normal bowel sounds, soft, nontender, no hepatosplenomegaly Musculoskeletal: Extremities: extremities normal to inspection; no cyanosis and no clubbing Neurologic: moves all extremities and awake; no focal motor deficits Psychiatric: A+Ox3, euthymic affect Results & Data Results & Data Vital Signs (Past 12 Hours) Vital Signs Temp Pulse Pulse Resp BP Pulse Ox O2 Del Method 11/19/22 15:14 36.8 C 97 H 18 129/94 95 Room Air 11/19/22 11:33 36.8 C 86 19 120/84 93 Room Air 11/19/22 07:00 94 H 11/19/22 08:46 36.9 C 102 H 18 144/97 H 95 Room Air Laboratory Results CBC, BMP, BCxs reviewed Diagnostic Findings Lumbar Spine MRI 11/19/22 07:49 MRI OF THE LUMBAR SPINE WITHOUT CONTRAST CLINICAL HISTORY: Postoperative evaluation. COMPARISON STUDY: Lumbar spine MRI October 13, 2022. Lumbar spine CT November. TECHNIQUE: Utilizing a 1.5 Syeda magnet and dedicated coil, multiplanar, multiecho imaging of the lumbar spine was performed without IV contrast. FINDINGS: This exam is mildly compromised by artifact. For purposes of numbering on this exam, the L5-S1 disc space is assigned to axial image 30 of 36. There are postoperative findings consistent with L3-S1 discectomy, posterior decompression and bilateral pedicle screw fusion. A laminectomy bed fluid collection measures 12.8 x 11.5 x 4.5 cm. Layering material within the dependent aspect of the fluid collection is noted. This has significant mass effect upon the thecal sac and results in moderate to severe central canal stenosis. In addition, suspected subdural multiloculated fluid collection is noted. The largest component is at the L2 level, measuring 4.2 x 0.8 x 1.4 cm. However, there is probable anterior subdural component at the T12-L1 and additional posterior subdural component at the T11-T12 level. This may be partially imaged on this exam. There is mild edema within the bilateral psoas muscles. No definite fluid collections within the psoas muscles are noted. T1 and T2 hypointense foci within the lower sacrum are better depicted on prior CT and PET/CT. No additional suspicious osseous lesions are present. There is increased fluid signal within the L3-L4 and L4-L5 disc spaces. This is nonspecific. This could be postsurgical. No definite evidence for osteomyelitis on this examination. IMPRESSION: 1. Status post L3-S1 discectomy, posterior decompression bilateral pedicle screw fusion. 4.8 x 11.5 x 4.5 cm laminectomy bed fluid collection adjacent to the hardware. This has significant mass effect upon the thecal sac and results in moderate to severe central canal stenosis. This is nonspecific in the early postoperative setting and sterility cannot be assessed by MRI. 2. Multiloculated suspected subdural collections within the lower thoracic and upper lumbar canals, described above. 3. Increased fluid signal within the L3-L4 and L4-L5 disc spaces. This is probably postsurgical. Discitis could appear similar. However, an adjacent endplates are intact without evidence for acute osteomyelitis. 4. Nonspecific edema within the bilateral psoas muscles without associated fluid collection. 5. Exam mildly compromised by motion artifact. ACT 112: Negative or not required by law. Electronically signed by: Americo Woodard M.D. 11/19/2022 11:29 AM Soft Tissue Ultrasound 11/19/22 07:56 US softtissue abdwall/lwr back CLINICAL HISTORY: assess for abscess at lower back wound site COMPARISON STUDY: CT of the abdomen and pelvis November 14, 2022. TECHNIQUE: Sonography of the back at site of recent surgery was performed. FINDINGS: There is a small subincisional fluid collection measures 1.3 x 0.6 x 0.6 cm. This contains debris. IMPRESSION: Small subincisional debris-containing fluid collection which measures 1.3 x 0.6 x 0.6 cm. This is nonspecific in the early postoperative setting and could reflect a complex seroma or hematoma. A small abscess could appear similar. ACT 112: Negative or not required by law. Electronically signed by: Americo Woodard M.D. 11/19/2022 11:44 AM PG Care Time/CCT Total # of Minutes Spent Total Time Spent with Patient: Total time spent is greater than 50% in coordination of care (as documented) at patient's floor/unit and/or counseling patient: Coding Level of Care Code 39535 SUB INP/OBS CARE 3/50MIN Diagnoses MRSA bacteremia R78.81; B95.62 Adrenal insufficiency E27.40 Diarrhea R19.7 Hyponatremia E87.1 Pressure ulcer, back, lower L89.109 Chronic steroid use Spinal stenosis M48.00 Spinal region: unspecified Acute encephalopathy G93.40 HTN (hypertension) I10 Prostate cancer metastatic to bone C61; C79.51 Depression F32.9 DMII (diabetes mellitus, type 2) E11.9 Atrial fibrillation I48.91 IPMN (intraductal papillary mucinous neoplasm) D49.0 (7) Spinal stenosis Spinal region: unspecified Qualified Code(s): M48.00 - Spinal stenosis, site unspecified
--- NOTE | 2022-11-19 19:04 | Infectious Disease Progress Nt ---
Date of Service November 19, 2022 Assessment & Plan (1) MRSA bacteremia: (2) Acute encephalopathy: Plan This is a 77 year old male with a pmh of prostate cancer with mets to spine, spinal stenosis sp lumbar decompression with hardware on 11/04 A fib, dms,presents with generalized pain and lethargy . He was admitted 10/24-11/12 and dx with covid, LL dvt and underwent lunbar decompression. He returns a few days later with lethargy and back pain. He denied fever, chillls, n/v/ sob, eller, change in urine and bowel habits. In ed noted to be hypotensive and tachycardic. Labs noted for wbc 10.52 bun/cr 16/0.85,procal 0.23 CT head unremarkable. CTA lung w/o PE. interstitial lung d isease wo pna. CTAB shows postsurgical changes of decompression and fusion of the lower lumbar spine, redemonstration of a few sclerotic foci most prominently in the sacrum and Atrophic right kidney with severe right hydroureteronephrosis ( not new). CT lumbar spine shows interval placement of posterior fixation hardware with expected postsurgical soft tissue swelling and subcutaneous emphysema . A wound noted on his back and was cultured. WCx grew MRSA and BC grew in 1/4 bottles. EMELYN without vegatations. ID consulted for Mrsa bacteremia and back wound Micro BC 10/5 1/ bottle MRSA (S vanc,dapt, tet) WC 10/ MRSA BC 10/ NGTD Abx zosyn 10/-10/6 Dapto 10/- ongoing #MRSA bacteremia #MRSA Wound cx sp back surgery #Lumbar fixation hardware in place MRSA bacteremia is likely 2/2 post op MRSA wound surgical wound . Wound is at prior drain site. there is some dried drainage at site on my exam Incision with tiny opening but dry. . TTE is negative for vegetation ,+ AV sclerosis. It is possible that the lumbar hardware was seeded 2/2 mrsa bacteremia. With mrsa bacteremia , one of the recommendations is usually--->removal of hardware if able. IF no removal, treat w/ [employer] superintendent IV abx followed by suppression if hardware seeded. CTt spine with contast - lumbar shows shows posterior fixation hardware with postsurgical soft tissue swelling and subcutaneous emphysema. It was Unclear extent of wound infection. Since prior drain site opening had some drainage (although minimal, intermittent), suggest additional imaging to rule deeper infection.A soft tissue US showed a small subincisional debris- containing fluid collection which measures 1.3 x 0.6 x 0.6 cm. Which could be a post op complex seroma or hematoma or small abscess. AN MRI showed a 4.8 x 11.5 x 4.5 cm laminectomy bed fluid collection adjacent to the hardware with significant mass effect upon the thecal sac and results in moderate to severe central canal stenosis. There is also multiloculated subdural collections within the lower thoracic and upper lumbar canalsand increased fluid signal within the L3-L4 and L4-L5 disc spaces ( postsurgical vs Discitis) could appear similar. However, an adjacent endplates are intact without evidence for acute osteomyelitis Also found to have non specific edema within the b/l psoas He is scheduled for OR with washout. Recs- Continue IV Dapto8 mg/kg iv daily Follow up OR cx and finding Anticipate 6 weeks IV abx followed by suppression if hardware remains. Discussed with hospitalisit. ID will continue to follow. Krista Newsome MD, MPH Infectious Disease [facility], ID Division Call [phone] with questions Admission and Anticipated Discharge Date Admission Date: November 14, 2022 Subjective This patient recommendation is based on a telemedicine consult request which was completed asynchronously through chart review and information provided by the primary physician. The patient was not seen or examined today. The evaluation is consultative in nature and all patient care and treatment decisions can either be accepted or rejected by the patient's primary hospital-based treating physician using their own independent medical judgment for their patient. Time Spent Reviewing Chart: 21 - 30 minutes Pt not seen . MRI and US findings noted and d/w Dr Burt Plan for intervention with Ortho tomorrow Results & Data Vital Signs (Past 12 Hours) Vital Signs Temp Pulse Resp BP Pulse Ox O2 Del Method 11/19/22 15:14 36.8 C 97 H 18 129/94 95 Room Air 11/19/22 11:33 36.8 C 86 19 120/84 93 Room Air 11/19/22 08:46 36.9 C 102 H 18 144/97 H 95 Room Air Laboratory Results Short CBC 11/19/22 Range/Units 05:46 WBC 7.94 (4.8-10.8) K/ul Hgb 10.3 L (14.0-18.0) g/dl Hct 31.3 L (42.0-52.0) % Plt Count 228 (130-400) K/uL BMP 11/19/22 05:46 Sodium 132 L Potassium 4.6 D Chloride 99 Carbon Dioxide 26 BUN 14 Creatinine 0.70 Glucose 137 H Calcium 7.1 L Diagnostic Findings Microbiology 11/16/22 05:53 Blood Aerobic Blood Culture - Preliminary No growth in Aerobic bottle after 48 hours. 11/16/22 05:53 Blood Anaerobic Blood Culture - Final 11/16/22 05:46 Blood Aerobic Blood Culture - Preliminary No growth in Aerobic bottle after 48 hours. 11/16/22 05:46 Blood Anaerobic Blood Culture - Preliminary No growth in Anaerobic bottle after 48 hours. 11/14/22 14:53 Blood Aerobic Blood Culture - Preliminary No growth in Aerobic bottle after 48 hours. 11/14/22 14:53 Blood Anaerobic Blood Culture - Preliminary Staph aureus MRSA 11/14/22 14:50 Blood Aerobic Blood Culture - Preliminary No growth in Aerobic bottle after 48 hours. 11/14/22 14:50 Blood Anaerobic Blood Culture - Preliminary No growth in Anaerobic bottle after 48 hours. 11/14/22 18:10 Back Gram Stain - Final 11/14/22 18:10 Back Wound Culture - Final Staph aureus MRSA Lumbar Spine MRI 11/19/22 07:49 MRI OF THE LUMBAR SPINE WITHOUT CONTRAST CLINICAL HISTORY: Postoperative evaluation. COMPARISON STUDY: Lumbar spine MRI October 13, 2022. Lumbar spine CT November 14, 2022. TECHNIQUE: Utilizing a 1.5 Syeda magnet and dedicated coil, multiplanar, multiecho imaging of the lumbar spine was performed without IV contrast. FINDINGS: This exam is mildly compromised by artifact. For purposes of numbering on this exam, the L5-S1 disc space is assigned to axial image 30 of 36. There are postoperative findings consistent with L3-S1 discectomy, posterior decompression and bilateral pedicle screw fusion. A laminectomy bed fluid collection measures 12.8 x 11.5 x 4.5 cm. Layering material within the dependent aspect of the fluid collection is noted. This has significant mass effect upon the thecal sac and results in moderate to severe central canal stenosis. In addition, suspected subdural multiloculated fluid collection is noted. The largest component is at the L2 level, measuring 4.2 x 0.8 x 1.4 cm. However, there is probable anterior subdural component at the T12-L1 and additional posterior subdural component at the T11-T12 level. This may be partially imaged on this exam. There is mild edema within the bilateral psoas muscles. No definite fluid collections within the psoas muscles are noted. T1 and T2 hypointense foci within the lower sacrum are better depicted on prior CT and PET/CT. No additional suspicious osseous lesions are present. There is increased fluid signal within the L3-L4 and L4-L5 disc spaces. This is nonspecific. This could be postsurgical. No definite evidence for osteomyelitis on this examination. IMPRESSION: 1. Status post L3-S1 discectomy, posterior decompression bilateral pedicle screw fusion. 4.8 x 11.5 x 4.5 cm laminectomy bed fluid collection adjacent to the hardware. This has significant mass effect upon the thecal sac and results in moderate to severe central canal stenosis. This is nonspecific in the early postoperative setting and sterility cannot be assessed by MRI. 2. Multiloculated suspected subdural collections within the lower thoracic and upper lumbar canals, described above. 3. Increased fluid signal within the L3-L4 and L4-L5 disc spaces. This is probably postsurgical. Discitis could appear similar. However, an adjacent endplates are intact without evidence for acute osteomyelitis. 4. Nonspecific edema within the bilateral psoas muscles without associated fluid collection. 5. Exam mildly compromised by motion artifact. ACT 112: Negative or not required by law. Electronically signed by: Americo Woodard M.D. 11/19/2022 11:29 AM Soft Tissue Ultrasound 11/19/22 07:56 US softtissue abdwall/lwr back CLINICAL HISTORY: assess for abscess at lower back wound site COMPARISON STUDY: CT of the abdomen and pelvis November 14, 2022. TECHNIQUE: Sonography of the back at site of recent surgery was performed. FINDINGS: There is a small subincisional fluid collection measures 1.3 x 0.6 x 0.6 cm. This contains debris. IMPRESSION: Small subincisional debris-containing fluid collection which measures 1.3 x 0.6 x 0.6 cm. This is nonspecific in the early postoperative setting and could reflect a complex seroma or hematoma. A small abscess could appear similar. ACT 112: Negative or not required by law. Electronically signed by: Amreico Woodard M.D. 11/19/2022 11:44 AM
[2022-11-19] MEDS: LORazepam 1 MG TAB PO PRN (20:56)
[2022-11-19] MEDS: HYDROCORTISONE SOD 100 MG in SYRINGE 0 ML IV SCH (20:56)
[2022-11-20] MEDS ORDERED: Nursing to Pharmacy Communication SCH ×2 (04:45→16:45)
[2022-11-20] MEDS: ABIRATERONE ACETATE PO SCH (06:15)
[2022-11-20] MEDS: INSULIN ASPART PER UNIT CHARGE SC SCH ×4 (06:15→20:40)
[2022-11-20 06:42] LABS: Hematocrit (blood only) 31.8 % (42.0-52.0); Hemoglobin 10.6 g/dl (14.0-18.0); Mean Corpuscular Hemoglobin 30.9 pg (25.0-34.0); Mean Corpuscular Hgb Conc 33.3 g/dL (32.0-36.0); Mean Corpuscular Volume 92.7 fL (80.0-100.0); Mean Platelet Volume 9.6 fL (9.4-12.4); Nucleated RBC # (auto) 0.04 K/uL (0.00-0.12); Nucleated RBC % (auto) 0.5 %; Platelet Count 241 K/uL (130-400); RDW Coefficient of Variation 15.9 % (11.5-14.5); RDW Standard Deviation 52.6 fL (36.4-46.3); Red Blood Count 3.43 M/uL (4.70-6.10); White Blood Count 8.62 K/ul (4.8-10.8)
[2022-11-20 07:05] LABS: BUN Creatinine Ratio 21.7 (10-20); Calcium 7.3 mg/dl (8.6-10.3); Creatinine Clr Calc Pharmacy 103.7 ml/min; Est GFR (African American) 105.4 ml/min; Est GFR (Non-African American) 90.9 ml/min; Magnesium 1.8 mg/dl (1.7-2.4); Potassium 4.5 mmol/L (3.5-5.1)
[2022-11-20 07:23] LABS: ALC (manual) 0.95 K/uL (1.2-3.4); ANC (manual) 6.55 K/uL (1.4-6.5); Lymphocytes # (manual) 0.95 K/uL (1.2-3.4); Lymphocytes % (manual) 11 %; Metamyelocytes # (manual) 0.26 K/uL (0-0); Metamyelocytes % (manual) 3 %; Monocytes # (manual) 0.52 K/uL (0.11-0.59); Monocytes % (manual) 6 %; Myelocytes # (manual) 0.17 K/uL (0-0); Myelocytes % (manual) 2 %; Neutrophils # (manual) 6.55 K/uL (1.40-6.50); Neutrophils % (manual) 76 %; Polychromasia 2+; Promyelocytes # (manual) 0.17 K/uL (0-0); Promyelocytes % (manual) 2 %; Tear Drop Cells 1+
[2022-11-20] MEDS: HYDROCORTISONE SOD 100 MG in SYRINGE 0 ML IV SCH ×2 (08:17→20:42)
[2022-11-20] MEDS: METOPROLOL SUCC 50MG EXT REL TAB PO SCH (08:17)
[2022-11-20] MEDS: ADVANCED PROBIOTIC 1250 MG CAPSULE PO SCH (08:17)
[2022-11-20] MEDS: PANTOprazole 40 MG TAB PO SCH (08:17)
[2022-11-20] MEDS: LANTUS PER UNIT CHARGE SQ SCH ×2 (08:26→20:40)
--- NOTE | 2022-11-20 11:23 | Hospitalist Progress Note ---
Date of Service November 20, 2022 Assessment & Plan (1) MRSA bacteremia: Plan: Possible sepsis and Toxic metabolic encephalopathy-resolved 77-year-old male presents with altered mental status and lethargy. He was hypotensive, tachycardic, hypoxic, and with MRSA in back wound and in blood stream With MRSA from wound on back and now in BCxs from 11/14 Concern given hardware in back -need to prevent seeding Discussed with Ortho Spine-no evidence of infection on initial imaging from 11/14 No fevers or leukocytosis here TTE neg for valvular veg Repeat BCxs 11/16 remain NGTD Had MRI L-spine 11/19 which showed 4.8 x 11.5 x 4.5 cm laminectomy bed fluid c ollection adjacent to the hardware. This has significant mass effect upon the thecal sac and results in moderate to severe central canal stenosis. This is nonspecific in the early postoperative setting and sterility cannot be assessed by MRI. Multiloculated suspected subdural collections within the lower thoracic and upper lumbar canals. Increased fluid signal within the L3-L4 and L4-L5 disc spaces. This is probably postsurgical. Discitis could appear similar. However, an adjacent endplates are intact without evidence for acute osteomyelitis. Nonspecific edema within the bilateral psoas muscles without associated fluid collection. Discussed with Ortho and ID--> plans for OR Wed for wash out of possible infection in spine -continue Daptomycin but increased dose to 8mg/kg --will need 6 weeks IV abx followed by suppressive therapy -consult ID for further recommendations appreciated -repeat BCxs drawn [id number] -follow CBC, CMP -will need PICC line prior to discharge-verbally consented but will need to sign paper consent-wait until closer to discharge for placement (2) Adrenal insufficiency: Plan: BPs now normal after stress dose steroids but added IV HC back on perioperatively as he has a h/o hypotension with surgery--> IV HC 100mg IV q12h Eventually convert back to home prednisone 5mg po bid (3) Diarrhea: Plan: started profuse diarrhea 11/16 C. diff negative now resolved with Imodium (4) Hyponatremia: Plan: Now improved with diuresis up to 131-132, 2/2 hypervolemia Ur Na+ low at 15, Ur Osm high IVFs dcd on 11/16 Had peripheral edema and some respiratory distress on 10/8--> now resolved with IV lasix x 3 doses -follow I/Os, respiratory status -Follow BMP, Mag in AM -cautious use of IVFs intraoperatively, may need further lasix post op (5) Pressure ulcer, back, lower: Plan: Pressure ulcer of lower back POA Stage 3 In the setting of recent back surgery and being bedbound. Wound cx with MRSA. Continue daptomycin. Local care. Offload pressure US 10/10 with small fluid collection underneath (6) Chronic steroid use: Plan: IV hydrocortisone as above for surgery -convert to oral prednisone after a few days of stress dosed steroids (7) Spinal stenosis: Plan: S/p lumbar decompression, fusion with Dr. Velazco on 11/04/2022. Lumbar spine CT on 11/14 showed expected postsurgical soft tissue swelling/no acute fractures. No apparent need for any surgical reexploration at this time Dcd tramadol as causing hallucinations continue APAP po 650mh po q6h prn continue hydrocodone 5/325mg po q4h prn as this was tolerated last admission avoid baclofen in future as this caused significant lethargy in combo with oxycodone at SNF -needs rehab (8) Acute encephalopathy: Plan: Acute toxic encephalopathy present on admission due to baclofen and oxycodone administration along with sepsis and bacteremia. Now resolved. These medications have been discontinued. Supportive care (9) HTN (hypertension): Plan: Hypotensive on admission secondary to adrenal insufficiency in setting of infection Now resolved with IV hydrocortisone Metoprolol has been restarted continue to hold home amlodipine and lisinopril and may not need them for a while (10) Prostate cancer metastatic to bone: Plan: Stage IV with bone mets. -pt requests to check his PSA while here-cautioned it may be falsely elevated in setting of prolonged bed bound status and Aaron cath placement -continue Zytiga -follows with Dr. Liriano for Oncology (11) Depression: Plan: Suicidal ideations have been ruled out. 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 Not medically ready for discharge yet Admission and Anticipated Discharge Date Admission Date: November 14, 2022 Subjective Anxious to have surgery today. Slept well overnight with ativan. No SOB. No further diarrhea Tele with rate controlled afib Physical Exam Constitutional: WD/WN, vitals as above Neck: trachea midline, no thyromegaly Respiratory: normal respiratory effort, lungs clear to auscultation Cardiovascular: Rate/Rhythm: regular rate and + irregularly irregular Heart Sounds: no murmur Extremities: + edema (trace pitting edema legs bilat, improved) Gastrointestinal (Abdomen): normal bowel sounds, soft, nontender, no hepatosplenomegaly Musculoskeletal: Extremities: extremities normal to inspection; no cyanosis and no clubbing Neurologic: moves all extremities and awake; no focal motor deficits Psychiatric: A+Ox3, euthymic affect Results & Data Results & Data Vital Signs (Past 12 Hours) Vital Signs Temp Pulse Pulse Resp BP Pulse Ox O2 Del Method 11/20/22 08:00 94 H 11/20/22 08:00 Room Air 11/20/22 07:46 36.7 C 91 H 17 134/94 95 Room Air 11/20/22 04:03 36.7 C 89 153/80 H 96 Room Air 11/19/22 23:34 36.8 C 104 H 24 130/100 93 Room Air Laboratory Results CBC, BMP, magnesium, BCxs reviewed PG Care Time/CCT Total # of Minutes Spent Total Time Spent with Patient: Total time spent is greater than 50% in coordination of care (as documented) at patient's floor/unit and/or counseling patient: Coding Level of Care Code 57435 SUB INP/OBS CARE 2/35MIN Diagnoses MRSA bacteremia R78.81; B95.62 Adrenal insufficiency E27.40 Diarrhea R19.7 Hyponatremia E87.1 Pressure ulcer, back, lower L89.109 Chronic steroid use Spinal stenosis M48.00 Spinal region: unspecified Acute encephalopathy G93.40 HTN (hypertension) I10 Prostate cancer metastatic to bone C61; C79.51 Depression F32.9 DMII (diabetes mellitus, type 2) E11.9 Atrial fibrillation I48.91 IPMN (intraductal papillary mucinous neoplasm) D49.0 (7) Spinal stenosis Spinal region: unspecified Qualified Code(s): M48.00 - Spinal stenosis, site unspecified
[2022-11-20] MEDS: LACTATED RINGER'S 1,000 ML IV SCH ×2 (12:47→16:30)
--- NOTE | 2022-11-20 13:26 | History & Physical Bridge Note ---
Date of Service November 20, 2022 History & Physical Bridge Note I have examined the patient, reviewed the History & Physical and in the interval since the performance of the History & Physical I have noted the following changes of clinical significance: no changes noted Irrigation and debridement lumbar spine
--- NOTE | 2022-11-20 13:30 | Anesthesiology Consultation ---
Date of Service November 20, 2022 Assessment & Plan Chart Review Chart Review: Acceptable Risk for Surgery and Patient NOT seen in Pre Admission Testing Consults Requested none ASA [id number] Proposed Anesthesia Anesthesia Type: General Risk / Benefits Reviewed With: PT / POA / Parent / Guardian, Accepts Plan and Informed Consent Obtained History Surgery Operation Date: 11/20/22 09:10 Proposed Procedures p Incision and Drainage Lumbar Spine - Benedict Velazco, Height/Weight Height: 5 ft 6 in Weight: 112.1 kg Allergies Allergy/AdvReac Type Severity Reaction Status Date / Time cat dander Allergy Severe CAN CAUSE Verified 09/24/22 00:30 ASTHMA ATTACK-itchy eyes, congestion gabapentin AdvReac Intermediate Hallucinati Verified 11/16/22 12:42 ng tramadol AdvReac Intermediate Hallucinati Verified 11/16/22 12:42 ng Medications Home Medications Medication Instructions Recorded Confirmed Last Taken abiraterone 500 mg tablet (Zytiga) 1,000 mg PO QAM 07/13/18 11/14/22 11/14/22 calcium carbonate 500 mg-vitamin 1 tab PO QAM 07/13/18 11/14/22 11/14/22 D3 5 mcg (200 unit) tablet (Calcium 500 + D) sertraline 100 mg tablet 100 mg PO QAM #90 tabs 09/01/19 11/14/22 11/14/22 oxycodone 5 mg tablet 5 mg PO Q4H PRN Pain 03/16/20 11/14/22 11/14/22 12:00 metoprolol succinate 200 mg 200 mg PO DAILY #90 tabs 07/15/22 11/14/22 11/14/22 tablet,extended release 24 hr amlodipine 10 mg tablet 10 mg PO QAM #90 tabs 07/18/22 11/14/22 11/14/22 lisinopril 20 mg tablet 20 mg PO DAILY #90 tabs 07/23/22 11/14/22 11/14/22 omeprazole 20 mg delayed 20 mg PO QAM #90 tabs 09/03/22 11/14/22 11/14/22 release,disintegrating tablet multivitamin with minerals 1 tab PO DAILY 09/24/22 11/14/22 11/14/22 ondansetron 4 mg disintegrating 4 mg PO Q8H PRN NAUSEA/VOMITING 09/24/22 11/14/22 11/13/22 tablet triamcinolone acetonide 0.1 % 1 applic topical .AMPM 09/24/22 11/14/22 10/24/22 topical cream baclofen 10 mg tablet 10 mg PO TID #0 tabs 10/19/22 11/14/22 11/14/22 12:30 loratadine 10 mg tablet (Wal-itin) 10 mg PO DAILY #0 tabs 10/19/22 11/14/22 11/14/22 glimepiride 2 mg tablet 2 mg PO QAM 10/24/22 11/14/22 11/14/22 prednisone 5 mg tablet 5 mg PO BID 11/06/22 11/14/22 11/14/22 08:30 amoxicillin 875 mg tablet 875 mg PO BID #0 tabs 11/12/22 11/14/22 11/14/22 08:30 cyanocobalamin (vitamin B-12) 500 1,000 mcg PO QAM #0 tabs 11/12/22 11/14/22 11/14/22 mcg tablet acetaminophen 325 mg tablet 650 mg PO Q6 PRN Pain 1-4 11/14/22 11/14/22 11/12/22 atorvastatin 20 mg tablet 20 mg PO HS 11/14/22 11/14/22 11/13/22 20:30 nitroglycerin 0.4 mg sublingual 0.4 mg sublingual Q5M PRN Chest 11/14/22 11/14/22 Unknown tablet (Nitrostat) Pain oxycodone 10 mg tablet,crush 10 mg PO AMHS 11/14/22 11/14/22 11/14/22 08:30 resistant,extended release 12 hr (OxyContin) Active Medications Generic Name Dose Route Start Last Admin Trade Name Freq PRN Reason Stop Dose Admin Abiraterone Acetate 2 each 11/15/22 16:45 11/20/22 06:15 Abiraterone Acetate PO 12/15/22 16:44 2 each DAILY MIESHA Administration Hydrocodone Bitart/Acetaminophen 1 tab 11/16/22 12:40 11/19/22 20:55 Hydrocodone/Acetamophen 5/325mg Tab PO 11/30/22 12:39 1 tab Q4H PRN Administration moderate-severe Pain Hydrocortisone Sodium 2 mls @ 4 mls/min 11/19/22 21:00 11/20/22 08:17 Succinate 100 mg/ Syringe IV 12/19/22 20:59 4 mls/min Q12 MIESHA Administration Lactated Ringer's 1,000 mls @ 15 mls/hr 11/20/22 12:45 11/20/22 12:47 Lr IV 12/20/22 12:44 15 mls/hr .Q24H MIESHA Administration Insulin Aspart 0 units 11/20/22 06:00 11/20/22 11:39 Insulin Aspart Per Unit Charge SC 12/20/22 05:59 1 units Q6 MIESHA Administration Insulin Glargine 5 units 11/16/22 09:15 11/20/22 08:26 Lantus Per Unit Charge SQ 12/16/22 09:14 5 units BID MIESHA Administration Lactobacillus Acidophilus 2 cap 11/17/22 18:15 11/20/22 08:17 Advanced Probiotic 1250 Mg Capsule PO 12/17/22 18:14 2 cap DAILY MIESHA Administration Loperamide HCl 2 mg 11/16/22 15:10 11/18/22 20:31 Loperamide Hcl 2 Mg Cap PO 12/16/22 15:09 2 mg Q6H PRN Administration Loose Stool Lorazepam 1 mg 11/19/22 18:11 11/19/22 20:56 Lorazepam 1 Mg Tab PO 12/19/22 18:10 1 mg HS PRN Administration anxiety or insomnia Metoprolol Succinate 200 mg 11/15/22 09:00 11/20/22 08:17 Metoprolol Succ 50mg Ext Rel Tab PO 12/15/22 08:59 200 mg QAM MIESHA Administration Pantoprazole Sodium 40 mg 11/15/22 09:00 11/20/22 08:17 Pantoprazole 40 Mg Tab PO 12/15/22 08:59 40 mg QAM MIESHA Administration Prednisone 10 mg 11/17/22 09:00 11/19/22 08:43 Prednisone 10 Mg Tablet PO 12/17/22 08:59 10 mg BID MIESHA Administration NPO Date Last Intake of Fluids: 11/19/22 Time Last Intake of Fluids: 18:00 Date Last Intake of Solids: 11/19/22 Time Last Intake of Solids: 18:00 Past Medical History Medical History Acute urinary retention Ambulatory dysfunction Androgen-induced osteoporosis Anxiety Atrial fibrillation DX 2019 - FOLLOWS W/ DR. ROBERTA Armas Chronic steroid use PROSTATE CANCER COVID-19 09/2022 requiring hospitalization COVID-19 Depression DMII (diabetes mellitus, type 2) Fatigue HTN (hypertension) Hydronephrosis of right kidney Hypercholesterolemia Hyperlipidemia IBS (irritable bowel syndrome) Insomnia Resolved IPMN (intraductal papillary mucinous neoplasm) Kidney stones Lumbar spondylosis Morbid obesity Osteoarthritis Prostate cancer metastatic to bone Prostate nodule Psychosis Had hx of depression with psychotic episode - resolved Renal insufficiency Sacral lesion Spinal stenosis Spinal stenosis Thrombocytopenia Ureter injury OBSTRUCTION OF RT URETER 2/2 PROSTATE CA Urinary frequency Urinary incontinence Urge incontinence Urinary retention Resolved Urinary tract infection Exercise / Class Metabolic Activity III < 4 Walking/Shop/Light housework Past Family History Family History Mother , Passed age 60 of sepsis Gallbladder disease Mental disorder Psychological disorder Father , Passed age 89 of sepsis (infected bladder stones) Congestive heart failure Bladder stones Prostate cancer no treatment needed Brother Heart failure Kidney stones Kidney disease Bladder cancer, Onset Age: 75 Myocardial infarction Grandmother (Paternal) , Passed age 93 of old age Breast cancer, Onset Age: 40 double mastectomy and then did well Sister , Passed age 2 of pneumonia No problems noted. Other Has no children Denies family history of Colon cancer Ovarian cancer Past Surgical History Surgical History History of cataract surgery 2018 - Bilat History of colonoscopy 2011 (due in 2021) History of prostate biopsy 2014 History of tonsillectomy as a child History of tooth extraction in age 19's S/P TURP 2014 Past Anesthesia History No Hx of Anesthesia Complications and No Family Hx of Anesthesia Complications History of PONV No Hx of PONV and No Hx of Motion Sickness Social History Smoking Status: Former smoker tobacco type: cigarettes Do You Dip or Chew Tobacco: No Smoking End Date: 30 years ago Hx Alcohol Use: No Hx Substance Use: No substance use type: does not use Physical Exam Vital Signs Last Vital Signs Temp 36.8 C 11/20/22 12:34 Pulse 94 H 11/20/22 12:34 Resp 18 11/20/22 12:34 BP 130/89 11/20/22 12:34 Pulse Ox 95 11/20/22 12:34 O2 Del Method Room Air 11/20/22 12:34 O2 Flow Rate 2 11/15/22 20:00 Constitutional + morbidly obese ENMT Mouth: no dentition abnormality Thyromental Distance: < 3.5 Finger Breadths Mallampati Class: III Neck normal visual inspection, trachea midline, + short neck and + thick neck; neck extension not limited Respiratory normal respiratory effort Auscultation: + diminished lung sounds Cardiovascular Rate/Rhythm: + abnormal rate (irreg./A Fib) and + abnormal rhythm (irreg./A Fib) Heart Sounds: no murmur Vessels: no carotid bruit Musculoskeletal Spine: normal cervical ROM and no pain with cervical ROM Extremities: full ROM of extremities Neurologic moves all extremities Motor/Sensory: + sensory deficit Psychiatric Orientation: alert and oriented x 3 Testing Laboratory Results 11/20/22 06:00 11/20/22 06:00 PT 11.4 Seconds (9.0-12.0) 11/14/22 14:50 INR 1.0 (0.9-1.1) 11/14/22 14:50 APTT 30.9 Seconds (21.0-31.0) 11/14/22 14:50 Urine Color Dark Yellow 11/14/22 17:10 Urine Appearance Cloudy (Clear) A 11/14/22 17:10 Urine pH 6.0 (4.5-7.5) 11/14/22 17:10 Ur Specific [place] 1.030 (1.000-1.030) 11/14/22 17:10 Urine Protein 1+ (Negative) H 11/14/22 17:10 Urine Glucose (UA) Trace (Negative) H 11/14/22 17:10 Urine Ketones Trace (Negative) H 11/14/22 17:10 Urine Nitrite Negative (Negative) 11/14/22 17:10 Ur Leukocyte Esterase Negative (Negative) 11/14/22 17:10 Urine WBC (Auto) 1-5 /hpf (0-5) 11/14/22 17:10 Urine RBC (Auto) 0-4 /hpf (0-4) 11/14/22 17:10 U Hyaline Cast (Auto) 1-5 /lpf (0-5) 11/14/22 17:10 U Epithel Cells (Auto) 10-20 /lpf (0-5) H 11/14/22 17:10 Urine Bacteria (Auto) Negative (Negative) 11/14/22 17:10 11/14/22 14:53 Aerobic Blood Culture - Final Blood No growth in Aerobic bottle after 5 days. Anaerobic Blood Culture - Final Staph aureus MRSA 11/14/22 14:50 Aerobic Blood Culture - Final Blood No growth in Aerobic bottle after 5 days. Anaerobic Blood Culture - Final No growth in Anaerobic bottle after 5 days. 11/16/22 05:53 Aerobic Blood Culture - Preliminary Blood No growth in Aerobic bottle after 48 hours. Anaerobic Blood Culture - Final 11/16/22 05:46 Aerobic Blood Culture - Preliminary Blood No growth in Aerobic bottle after 48 hours. Anaerobic Blood Culture - Preliminary No growth in Anaerobic bottle after 48 hours. 11/14/22 18:10 Gram Stain - Final Back Wound Culture - Final Staph aureus MRSA 11/20/22 11/20/22 11/20/22 11:06 07:06 04:36 POC Glucose 163 H 176 H 196 H Electrocardiogram Date: 11/14/22 Findings: + AFIB @ (@ 99;T wave abnl;consider Lat. ischemia) Chest X-Ray Date: 11/15/22 Findings: + NAD, + cardiomegaly and + atherosclerosis of thoracic aorta Echocardiogram Date: 11/16/22 EF: 60% LV Function: normal RWMA: + none Other Findings: + atrial enlargement (RA/LA mildly dilated) Valvular Disease: + AI (mild) and + MR (mild) TR-mod.
[2022-11-20] MEDS ORDERED: ATROPINE SULFATE 0.1 MG/ML 10ML SYR IV PRN ×2 (13:37→14:59)
[2022-11-20] MEDS ORDERED: BUPIVACAINE/EPINEPHRINE 0.25% 1:200,000 30 ML VIAL ONE (13:37)
[2022-11-20] MEDS ORDERED: PROMETHAZINE HCL 12.5 MG in SODIUM CHLORIDE 0.9% 50 ML IV PRN ×2 (13:37→14:59)
[2022-11-20] MEDS ORDERED: FLUMAZENIL 0.1 MG/1 ML 10 ML VIAL IV PRN ×2 (13:37→14:59)
[2022-11-20] MEDS ORDERED: ceFAZolin 330 MG/ML 1 GM VIAL ONE (13:37)
[2022-11-20] MEDS ORDERED: VANCOMYCIN HCL 1000MG/20ML VIAL ONE (13:37)
[2022-11-20] MEDS ORDERED: NALOXONE HCL 0.4 MG/1 ML VIAL/CARP IV PRN ×2 (13:37→14:59)
[2022-11-20] MEDS ORDERED: ePHEDrine sulfate 50 MG/ML AMP IV PRN ×2 (13:37→14:59)
[2022-11-20] MEDS ORDERED: ONDANSETRON INJ 2 MG/ML 2 ML VIAL IV PRN ×2 (13:37→14:59)
[2022-11-20] MEDS ORDERED: LABETALOL HCL IV 5 MG/ML 20ML IV PRN ×2 (13:37→14:59)
[2022-11-20] MEDS ORDERED: GENTAMICIN SULFATE 40 MG/ML 2 ML VIAL ONE (13:37)
[2022-11-20] MEDS ORDERED: fentaNYL citrate PF 100 MCG/2 ML VIAL ONE (13:49)
[2022-11-20] MEDS ORDERED: PROPOFOL IV EMULSION 10 MG/ML 20 ML VIAL IV ONE (13:50)
[2022-11-20] MEDS ORDERED: DEXAMETHASONE SOD INJ 4 MG/ML VIAL ONE (13:50)
[2022-11-20] MEDS ORDERED: LIDOCAINE 2% 2 ML VIAL/AMP(20MG/ML) INFIL ONE (13:50)
[2022-11-20] MEDS ORDERED: PHENYLEPHRINE HCL 10 MG/ML VIAL ONE (14:29)
[2022-11-20] MEDS ORDERED: ePHEDrine sulfate 50 MG/ML AMP ONE (14:29)
[2022-11-20] MEDS ORDERED: SUGAMMADEX SODIUM 200 MG/2 ML VIAL IV ONE (14:45)
--- NOTE | 2022-11-20 14:46 | Operative Report ---
Post Operative Report Pre & Post Diagnosis Operation Date: 11/20/22 09:10 Preop diagnosis Epidural abscess Postoperative diagnosis Same I identified the patient and participated in the time-out.: Yes Procedure Operation Date: 11/20/22 09:10 Irrigation debridement lumbar spine Surgeon Benedict Velazco DO [employer] Apprentice Sheryl Cabrera Estimated Blood Loss 25 Findings Consistent with Post-Op Diagnosis Specimens Cultures of the epidural space Indications 77-year-old male who presents with evidence of sepsis imaging demonstrates large fluid collection is here for irrigation debridement lumbar spine. Description of Procedure Patient met with identified informed consent obtained. Patient was then taken to the operative suite underwent a patient placed in a prone position on Edmar table top John frame. All bony promises well-padded eyes inspected to ensure no external pressure for spine. This point lumbar spine is prepped draped normal sterile fashion. Utilizing the previous incision site sharp dissection formed down to the fascial layer. Released the fascia significant amount of purulent sanguinous fluid identified. I then irrigated 5 L of antibiotic saline throughout the lumbar spine incision debrided any necrotic looking tissue. Then placed 10 cc of Stimulan beads impregnated with vancomycin gentamicin throughout the posterior gutters and epidural space. 2 15 round MATTHEW drains were then inserted. Incision was then closed with subcutaneous Vicryl and jamarcus for final skin closure. Sterile dressing placed. Patient awakened taken to PACU stable condition. Please note Sheryl Cabrera was present at the entire surgery and all the patient positioning complex portion of the surgery and fascial closure. I attest to the content of the Intraoperative Record and any orders documented therein. Any exceptions are noted below.
[2022-11-20] MEDS ORDERED: fentaNYL citrate PF 100 MCG/2 ML VIAL IV PRN (14:59)
[2022-11-20] MEDS ORDERED: HYDROmorphone INJ 1 MG/ML SYRINGE IV PRN (14:59)
[2022-11-20] MEDS: fentaNYL citrate PF 100 MCG/2 ML VIAL IV PRN ×3 (15:17→15:28)
[2022-11-20] MEDS: HYDROmorphone INJ 1 MG/ML SYRINGE IV PRN ×2 (15:35→15:40)
--- NOTE | 2022-11-20 15:37 | Anesthesiology Progress Note ---
Date of Service November 20, 2022 Anesthesia Post Procedure Vital Signs Vital Signs: Temp Pulse Pulse Pulse Resp BP Pulse Ox 11/20/22 15:30 87 18 110/77 98 11/20/22 15:20 95 H 20 111/78 100 11/20/22 15:10 94 H 24 116/80 100 11/20/22 15:03 97.5 F L 92 H 12 108/82 97 11/20/22 12:34 98.2 F 94 H 18 130/89 95 11/20/22 11:48 98.2 F 89 18 128/93 94 11/20/22 08:00 94 H 11/20/22 08:00 11/20/22 07:46 98.1 F 91 H 17 134/94 95 11/19/22 20:00 11/20/22 04:03 98.1 F 89 153/80 H 96 11/19/22 22:01 95 H 11/19/22 23:34 98.2 F 104 H 24 130/100 93 11/19/22 19:15 99.5 F 24 126/84 95 O2 Del Method O2 Flow Rate 11/20/22 15:30 Nasal Cannula 4 11/20/22 15:20 Oxymask 11 11/20/22 15:10 Oxymask 11 11/20/22 15:03 Oxymask 11 11/20/22 12:34 Room Air 11/20/22 11:48 Room Air 11/20/22 08:00 11/20/22 08:00 Room Air 11/20/22 07:46 Room Air 11/19/22 20:00 Room Air 11/20/22 04:03 Room Air 11/19/22 22:01 11/19/22 23:34 Room Air 11/19/22 19:15 Room Air Pain Intensity Generalized: Pain Intensity: 0 Lumbar: Pain Intensity: 4 Back: Pain Intensity: 6 Transfer of Care Handoff Completed per policy Notes Mental Status: alert / awake / arousable and participated in evaluation Patient Amnestic to Procedure: Yes Nausea / Vomiting: adequately controlled Pain: adequately controlled Airway Patency, RR, SpO2: stable & adequate BP & HR: stable & adequate Hydration State: stable & adequate Anesthetic Complications: no major complications apparent and Pt Satisfied with anesthetic care
[2022-11-20] MEDS: DAPTOmycin 800 MG in SYRINGE 0 ML IV SCH (16:36)
[2022-11-20] MEDS: HYDROCODONE/ACETAMOPHEN 5/325MG TAB PO PRN ×2 (17:04→23:06)
[2022-11-20] MEDS: HYDROmorphone INJ 0.5 MG/0.5 ML SYR IV PRN (20:42)
[2022-11-21 06:06] LABS: Hematocrit (blood only) 30.8 % (42.0-52.0); Hemoglobin 10.5 g/dl (14.0-18.0); Mean Corpuscular Hemoglobin 32.1 pg (25.0-34.0); Mean Corpuscular Hgb Conc 34.1 g/dL (32.0-36.0); Mean Corpuscular Volume 94.2 fL (80.0-100.0); Mean Platelet Volume 9.8 fL (9.4-12.4); Nucleated RBC # (auto) 0.07 K/uL (0.00-0.12); Nucleated RBC % (auto) 0.6 %; Platelet Count 253 K/uL (130-400); RDW Coefficient of Variation 16.2 % (11.5-14.5); RDW Standard Deviation 54.4 fL (36.4-46.3); Red Blood Count 3.27 M/uL (4.70-6.10); White Blood Count 11.55 K/ul (4.8-10.8)
[2022-11-21 06:32] LABS: BUN Creatinine Ratio 19.5 (10-20); Basophils # (auto) 0.05 K/uL (0.00-0.20); Basophils % (auto) 0.4 %; Calcium 7.4 mg/dl (8.6-10.3); Creatinine Clr Calc Pharmacy 83.7 ml/min; Est GFR (African American) 95.8 ml/min; Est GFR (Non-African American) 82.7 ml/min; Immature Granulocytes # (auto) 1.06 K/uL (0.01-0.20); Immature Granulocytes % (auto) 9.2 %; Lymphocytes # (auto) 1.08 K/uL (1.20-3.40); Lymphocytes % (auto) 9.4 %; Magnesium 1.9 mg/dl (1.7-2.4); Monocytes # (auto) 0.58 K/uL (0.11-0.59); Neutrophils # (auto) 8.78 K/uL (1.40-6.50); Polychromasia 1+; Potassium 4.5 mmol/L (3.5-5.1)
[2022-11-21] MEDS: ABIRATERONE ACETATE PO SCH (07:12)
[2022-11-21] MEDS: HYDROCODONE/ACETAMOPHEN 5/325MG TAB PO PRN ×3 (07:27→21:30)
[2022-11-21] MEDS ORDERED: FUROSEMIDE INJ 20 MG/2 ML VIAL IV ONE (07:53)
[2022-11-21] MEDS ORDERED: MAGNESIUM SULFATE / D5W 1 GM/100 ML BAG IV ONE (08:00)
[2022-11-21] MEDS: INSULIN ASPART PER UNIT CHARGE SC SCH ×4 (08:17→20:49)
[2022-11-21] MEDS: LANTUS PER UNIT CHARGE SQ SCH ×2 (08:18→20:49)
--- NOTE | 2022-11-21 08:28 | Orthopedic Progress Note ---
Date of Service November 21, 2022 Assessment & Plan (1) 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: Plan: This time I encouraged patient to sit up as tolerated. He may begin transfers to chair when able. Admission and Anticipated Discharge Date Admission Date: November 14, 2022 Subjective Patient's back pain is controlled. Denies any leg pain. Overall feels comfortable. Physical Exam Physical Exam: On exam he is alert and oriented. He is demonstrating reasonable plantarflexion dorsiflexion quadriceps bilaterally. Sensory is intact. Results & Data Vital Signs (Past 12 Hours) Vital Signs Temp Pulse Resp BP BP Pulse Ox O2 Del Method 11/21/22 07:29 36.7 C 86 21 129/90 97 Nasal Cannula 11/21/22 03:30 36.5 C 87 18 116/91 98 Nasal Cannula 11/20/22 23:29 36.7 C 97 H 20 105/68 96 Nasal Cannula 11/20/22 20:38 94/57 L O2 Flow Rate 11/21/22 07:29 1 11/21/22 03:30 1 11/20/22 23:29 1 11/20/22 20:38
[2022-11-21] MEDS: HYDROCORTISONE SOD 100 MG in SYRINGE 0 ML IV SCH ×2 (08:43→20:05)
[2022-11-21] MEDS: PANTOprazole 40 MG TAB PO SCH (08:44)
[2022-11-21] MEDS: METOPROLOL SUCC 50MG EXT REL TAB PO SCH (08:44)
[2022-11-21] MEDS: ADVANCED PROBIOTIC 1250 MG CAPSULE PO SCH (08:44)
--- NOTE | 2022-11-21 11:18 | Infectious Disease Progress Nt ---
Date of Service November 21, 2022 Assessment & Plan (1) MRSA bacteremia: (2) Acute encephalopathy: Plan This is a 77 year old male with a pmh of prostate cancer with mets to spine, spinal stenosis s/p lumbar decompression with hardware on 11/04, A fib, DM2,presents with generalized pain and lethargy . He was admitted 10/24-11/12 and dx with covid, LL dvt and underwent lumbar decompression. He returns a few days later with lethargy and back pain. He denied fever, chillls, n/v/ sob, eller, change in urine and bowel habits. In ed noted to be hypotensive and tachycardic. Labs noted for wbc 10.52 bun/cr 16/0.85,procal 0.23. CT head unremarkable. CTA lung w/o PE, = interstitial lung disease w/o pna. CTAB shows postsurgical changes of decompression and fusion of the lower lumbar spine, re-demonstration of a few sclerotic foci most prominently in the sacrum, atrophic right kidney with severe right hydroureteronephrosis ( not new). CT lumbar spine shows interval placement of posterior fixation hardware with expected postsurgical soft tissue swelling and subcutaneous emphysema . A wound noted on his back and was cultured. WCx grew MRSA and BC grew in 1/4 bottles MRSA. EMELYN without vegatations. ID consulted for Mrsa bacteremia and back wound. Micro BC 10/06 10/ bottle MRSA (S vanc,dapt, tet) WC / MRSA BC 11/16 NGTD OR abscess 11/20; g/s GPC, culture Pending Abx zosyn 11/14-11/15 Dapto 11/14- ongoing #MRSA Bacteremia #MRSA post op surgical wound #MRSA spinal abscess s/p lumbar decompression and hardware ( 11/04/22) #Lumbar fixation hardware in place MRSA bacteremia is likely 2/2 post op MRSA wound surgical wound . Wound is at prior drain site. there is some dried drainage at site on my initial exam on 11/19. Incision with tiny opening but dry. . TTE is negative for vegetation ,+ AV sclerosis. CTt spine with contast - lumbar shows shows posterior fixation hardware with postsurgical soft tissue swelling and subcutaneous emphysema. A soft tissue US showed a small subincisional debris-containing fluid collection which measures 1.3 x 0.6 x 0.6 cm: could be a post op complex seroma or hematoma or small abscess. MRI showed a 4.8 x 11.5 x 4.5 cm laminectomy bed fluid collection adjacent to the hardware with significant mass effect upon the thecal sac and results in moderate to severe central canal stenosis. There is also multiloculated subdural collections within the lower thoracic and upper lumbar canalsand increased fluid signal within the L3-L4 and L4-L5 disc spaces ( postsurgical vs Discitis) could appear similar. However, an adjacent endplates are intact without evidence for acute osteomyelitis Also found to have non specific edema within the b/l psoas He underwent I +D of Abscess in epidural space of L2-L5 on 11/20. OP report reviewed: significant sanguineous purulent fluid identified. The lumbar spine incision was debrided of any necrotic looking tissue. Vancomycin and gentamicin beads placed throughout the epidural space and gutters. Abscess cx G/S + GPC , Cx P. Recs- Continue IV Dapto8 mg/kg iv daily Follow up OR cx 11/20 Per pt he is Pending RTOR for further intervention Anticipate 6 weeks IV abx From LAST OR intervention followed by suppression if hardware remains. ID will continue to follow. Krista Newsome MD, MPH Infectious Disease [facility], [facility] Call [phone] with questions Admission and Anticipated Discharge Date Admission Date: November 14, 2022 Subjective Subsequent visit was provided via telemedicine using two-way real-time interactive telecommunication between the patient and the telemedicine provider. For the duration of the visit, the provider was performing the assessment from a different facility than the patient. This includesuse of bluetooth stethoscope forauscultationperformed by the telepresenter that the telemedicine provider can hear if described in the physical exam. Rvda Master Certified Rv Technician contact information: Please call [facility] Call Center . (Phone Number For Physician Use Only) After establishing a telemedicine visit, patient was: Patient was verified with two unique identifiers and Patient/authorized rep acknowledged consent and understanding Time Spent with Patient: Subsequent => 25 min sp spinal abscess IandD 11/20 has back pain afebrile WBC 11.55, cr 0.87 Physical Exam Physical Exam: gen- nad, lying in bed lung - no inc wob abd- soft MSK- ttp of spine post op. 2 post op drains with sanginous fluid in bulb L>>R Results & Data Vital Signs (Past 12 Hours) Vital Signs Temp Pulse Pulse Resp BP BP Pulse Ox 11/21/22 10:58 36.6 C 90 22 121/83 98 11/21/22 08:00 84 11/21/22 08:00 11/21/22 07:29 36.7 C 86 21 129/90 97 11/21/22 03:30 36.5 C 87 18 116/91 98 11/20/22 23:29 36.7 C 97 H 20 105/68 96 O2 Del Method O2 Flow Rate 11/21/22 10:58 Nasal Cannula 11/21/22 08:00 11/21/22 08:00 Nasal Cannula 2 11/21/22 07:29 Nasal Cannula 1 11/21/22 03:30 Nasal Cannula 1 11/20/22 23:29 Nasal Cannula 1 Laboratory Results Short CBC 11/21/22 Range/Units 05:25 WBC 11.55 H (4.8-10.8) K/ul Hgb 10.5 L (14.0-18.0) g/dl Hct 30.8 L (42.0-52.0) % Plt Count 253 (130-400) K/uL BMP 11/21/22 05:25 Sodium 131 L Potassium 4.5 Chloride 98 Carbon Dioxide 27 BUN 17 Creatinine 0.87 Glucose 189 H Calcium 7.4 L Diagnostic Findings Microbiology 11/20/22 14:44 Back,Lower Gram Stain - Final 11/16/22 05:53 Blood Aerobic Blood Culture - Final No growth in Aerobic bottle after 5 days. 11/16/22 05:53 Blood Anaerobic Blood Culture - Final 11/16/22 05:46 Blood Aerobic Blood Culture - Final No growth in Aerobic bottle after 5 days. 11/16/22 05:46 Blood Anaerobic Blood Culture - Final No growth in Anaerobic bottle after 5 days. 11/14/22 14:53 Blood Aerobic Blood Culture - Final No growth in Aerobic bottle after 5 days. 11/14/22 14:53 Blood Anaerobic Blood Culture - Final Staph aureus MRSA 11/14/22 14:50 Blood Aerobic Blood Culture - Final No growth in Aerobic bottle after 5 days. 11/14/22 14:50 Blood Anaerobic Blood Culture - Final No growth in Anaerobic bottle after 5 days. 11/14/22 18:10 Back Gram Stain - Final 11/14/22 18:10 Back Wound Culture - Final Staph aureus MRSA Lumbar Spine MRI 11/19/22 07:49 MRI OF THE LUMBAR SPINE WITHOUT CONTRAST CLINICAL HISTORY: Postoperative evaluation. COMPARISON STUDY: Lumbar spine MRI October 13, 2022. Lumbar spine CT November 14, 2022. TECHNIQUE: Utilizing a 1.5 Syeda magnet and dedicated coil, multiplanar, multiecho imaging of the lumbar spine was performed without IV contrast. FINDINGS: This exam is mildly compromised by artifact. For purposes of numbering on this exam, the L5-S1 disc space is assigned to axial image 30 of 36. There are postoperative findings consistent with L3-S1 discectomy, posterior decompression and bilateral pedicle screw fusion. A laminectomy bed fluid collection measures 12.8 x 11.5 x 4.5 cm. Layering material within the dependent aspect of the fluid collection is noted. This has significant mass effect upon the thecal sac and results in moderate to severe central canal stenosis. In addition, suspected subdural multiloculated fluid collection is noted. The largest component is at the L2 level, measuring 4.2 x 0.8 x 1.4 cm. However, there is probable anterior subdural component at the T12-L1 and additional posterior subdural component at the T11-T12 level. This may be partially imaged on this exam. There is mild edema within the bilateral psoas muscles. No definite fluid collections within the psoas muscles are noted. T1 and T2 hypointense foci within the lower sacrum are better depicted on prior CT and PET/CT. No additional suspicious osseous lesions are present. There is increased fluid signal within the L3-L4 and L4-L5 disc spaces. This is nonspecific. This could be postsurgical. No definite evidence for osteomyelitis on this examination. IMPRESSION: 1. Status post L3-S1 discectomy, posterior decompression bilateral pedicle screw fusion. 4.8 x 11.5 x 4.5 cm laminectomy bed fluid collection adjacent to the hardware. This has significant mass effect upon the thecal sac and results in moderate to severe central canal stenosis. This is nonspecific in the early postoperative setting and sterility cannot be assessed by MRI. 2. Multiloculated suspected subdural collections within the lower thoracic and upper lumbar canals, described above. 3. Increased fluid signal within the L3-L4 and L4-L5 disc spaces. This is probably postsurgical. Discitis could appear similar. However, an adjacent endplates are intact without evidence for acute osteomyelitis. 4. Nonspecific edema within the bilateral psoas muscles without associated fluid collection. 5. Exam mildly compromised by motion artifact. ACT 112: Negative or not required by law. Electronically signed by: Americo Woodard M.D. 11/19/2022 11:29 AM Soft Tissue Ultrasound 11/19/22 07:56 US softtissue abdwall/lwr back CLINICAL HISTORY: assess for abscess at lower back wound site COMPARISON STUDY: CT of the abdomen and pelvis November 14, 2022. TECHNIQUE: Sonography of the back at site of recent surgery was performed. FINDINGS: There is a small subincisional fluid collection measures 1.3 x 0.6 x 0.6 cm. This contains debris. IMPRESSION: Small subincisional debris-containing fluid collection which measures 1.3 x 0.6 x 0.6 cm. This is nonspecific in the early postoperative setting and could reflect a complex seroma or hematoma. A small abscess could appear similar. ACT 112: Negative or not required by law. Electronically signed by: Americo Woodard M.D. 11/19/2022 11:44 AM Medications Administered Home Medications Medication Instructions Recorded Confirmed Last Taken abiraterone 500 mg tablet (Zytiga) 1,000 mg PO QAM 07/13/18 11/14/22 11/14/22 calcium carbonate 500 mg-vitamin 1 tab PO QAM 07/13/18 11/14/22 11/14/22 D3 5 mcg (200 unit) tablet (Calcium 500 + D) sertraline 100 mg tablet 100 mg PO QAM #90 tabs 09/01/19 11/14/22 11/14/22 oxycodone 5 mg tablet 5 mg PO Q4H PRN Pain 03/16/20 11/14/22 11/14/22 12:00 metoprolol succinate 200 mg 200 mg PO DAILY #90 tabs 07/15/22 11/14/22 11/14/22 tablet,extended release 24 hr amlodipine 10 mg tablet 10 mg PO QAM #90 tabs 07/18/22 11/14/22 11/14/22 lisinopril 20 mg tablet 20 mg PO DAILY #90 tabs 07/23/22 11/14/22 11/14/22 omeprazole 20 mg delayed 20 mg PO QAM #90 tabs 09/03/22 11/14/22 11/14/22 release,disintegrating tablet multivitamin with minerals 1 tab PO DAILY 09/24/22 11/14/22 11/14/22 ondansetron 4 mg disintegrating 4 mg PO Q8H PRN NAUSEA/VOMITING 09/24/22 11/14/22 11/13/22 tablet triamcinolone acetonide 0.1 % 1 applic topical .AMPM 09/24/22 11/14/22 10/24/22 topical cream baclofen 10 mg tablet 10 mg PO TID #0 tabs 10/19/22 11/14/22 11/14/22 12:30 loratadine 10 mg tablet (Wal-itin) 10 mg PO DAILY #0 tabs 10/19/22 11/14/22 11/14/22 glimepiride 2 mg tablet 2 mg PO QAM 10/24/22 11/14/22 11/14/22 prednisone 5 mg tablet 5 mg PO BID 11/06/22 11/14/22 11/14/22 08:30 amoxicillin 875 mg tablet 875 mg PO BID #0 tabs 11/12/22 11/14/22 11/14/22 08:30 cyanocobalamin (vitamin B-12) 500 1,000 mcg PO QAM #0 tabs 11/12/22 11/14/22 11/14/22 mcg tablet acetaminophen 325 mg tablet 650 mg PO Q6 PRN Pain 1-4 11/14/22 11/14/22 11/12/22 atorvastatin 20 mg tablet 20 mg PO HS 11/14/22 11/14/22 11/13/22 20:30 nitroglycerin 0.4 mg sublingual 0.4 mg sublingual Q5M PRN Chest 11/14/22 11/14/22 Unknown tablet (Nitrostat) Pain oxycodone 10 mg tablet,crush 10 mg PO AMHS 11/14/22 11/14/22 11/14/22 08:30 resistant,extended release 12 hr (OxyContin) Active Medications Generic Name Dose Route Start Last Admin Trade Name Freq PRN Reason Stop Dose Admin Abiraterone Acetate 2 each 11/15/22 16:45 11/21/22 07:12 Abiraterone Acetate PO 12/15/22 16:44 2 each DAILY MIESHA Administration Hydrocodone Bitart/Acetaminophen 1 tab 11/16/22 12:40 11/21/22 07:27 Hydrocodone/Acetamophen 5/325mg Tab PO 11/30/22 12:39 1 tab Q4H PRN Administration moderate-severe Pain Hydromorphone HCl 0.5 mg 11/20/22 18:52 11/20/22 20:42 Hydromorphone Inj 0.5 Mg/0.5 Ml Syr IV 12/04/22 18:51 0.5 mg Q6H PRN Administration moderate-severe pain Daptomycin 800 mg/ Syringe 16 mls @ 8 mls/min 11/20/22 16:00 11/20/22 16:36 IV 11/29/22 15:59 8 mls/min Q24H MIESHA Administration Protocol Hydrocortisone Sodium 2 mls @ 4 mls/min 11/19/22 21:00 11/21/22 08:43 Succinate 100 mg/ Syringe IV 12/19/22 20:59 4 mls/min Q12 MIESHA Administration Lactated Ringer's 1,000 mls @ 15 mls/hr 11/20/22 12:45 11/20/22 16:30 Lr IV 12/20/22 12:44 Not Given .Q24H MIESHA Insulin Aspart 0 units 11/20/22 16:35 11/21/22 08:17 Insulin Aspart Per Unit Charge SC 12/20/22 16:34 5 units ACHS MIESHA Administration Insulin Glargine 5 units 11/16/22 09:15 11/21/22 08:18 Lantus Per Unit Charge SQ 12/16/22 09:14 5 units BID MIESHA Administration Lactobacillus Acidophilus 2 cap 11/17/22 18:15 11/21/22 08:44 Advanced Probiotic 1250 Mg Capsule PO 12/17/22 18:14 2 cap DAILY MIESHA Administration Loperamide HCl 2 mg 11/16/22 15:10 11/18/22 20:31 Loperamide Hcl 2 Mg Cap PO 12/16/22 15:09 2 mg Q6H PRN Administration Loose Stool Lorazepam 1 mg 11/19/22 18:11 11/19/22 20:56 Lorazepam 1 Mg Tab PO 12/19/22 18:10 1 mg HS PRN Administration anxiety or insomnia Metoprolol Succinate 200 mg 11/15/22 09:00 11/21/22 08:44 Metoprolol Succ 50mg Ext Rel Tab PO 12/15/22 08:59 200 mg QAM MIESHA Administration Pantoprazole Sodium 40 mg 11/15/22 09:00 11/21/22 08:44 Pantoprazole 40 Mg Tab PO 12/15/22 08:59 40 mg QAM MIESHA Administration
[2022-11-21] MEDS: LACTATED RINGER'S 1,000 ML IV SCH (13:31)
[2022-11-21] MEDS: HYDROmorphone INJ 0.5 MG/0.5 ML SYR IV PRN ×2 (15:48→23:28)
[2022-11-21] MEDS: DAPTOmycin 800 MG in SYRINGE 0 ML IV SCH (16:44)
--- NOTE | 2022-11-21 17:12 | Hospitalist Progress Note ---
Date of Service November 21, 2022 Assessment & Plan (1) MRSA bacteremia: Plan: Possible sepsis and Toxic metabolic encephalopathy-resolved 77-year-old male presents with altered mental status and lethargy. He was hypotensive, tachycardic, hypoxic, and with MRSA in back wound and in blood stream With MRSA from wound on back and BCxs from 11/14 Concern given hardware in back Discussed with Ortho Spine-no evidence of infection on initial imaging from 11/14 No fevers or leukocytosis here TTE neg for valvular veg Repeat BCxs 11/16 remain NGTD MRI L-spine 11/19 which showed 4.8 x 11.5 x 4.5 cm laminectomy bed fluid collection adjacent to the hardware. This has significant mass effect upon the thecal sac and results in moderate to severe central canal stenosis. This is nonspecific in the early postoperative setting and sterility cannot be assessed by MRI. Multiloculated suspected subdural collections within the lower thoracic and upper lumbar canals. Increased fluid signal within the L3-L4 and L4-L5 disc spaces. This is probably postsurgical. Discitis could appear similar. However, an adjacent endplates are intact without evidence for acute osteomyelitis. Nonspecific edema within the bilateral psoas muscles without associated fluid collection. Discussed with Ortho and ID--> now s/p wash out of large epidural abscess 11/20 ABscess culture with Staph species, ID and sensitivity pending -continue Daptomycin 8mg/kg --will need 6 weeks IV abx after last back washout surgery, followed by chronic suppressive therapy -consult ID appreciated -repeat BCxs drawn [id number] -follow CBC, CMP -will need PICC line prior to discharge-verbally consented but will need to sign paper consent-wait until closer to discharge for placement (2) Adrenal insufficiency: Plan: BPs now normal after stress dose steroids but added IV HC back on perioperatively as he has a h/o hypotension with surgery--> IV HC 100mg IV q12h -decrease IV HC to 50mg IV bid for tomorrow Eventually convert back to home prednisone 5mg po bid (3) Diarrhea: Plan: started profuse diarrhea 11/16 C. diff negative now resolved with Imodium (4) Hyponatremia: Plan: Now improved with diuresis up to 131-132, 2/2 hypervolemia Ur Na+ low at 15, Ur Osm high IVFs dcd on 11/16 and then received more IVFs perioperatively Had peripheral edema and some respiratory distress on 11/17--> now resolved with IV lasix x 3 doses -give lasix 20mg IV x 1 on 11/21 -follow I/Os, respiratory status -Follow BMP, Mag in AM (5) Pressure ulcer, back, lower: Plan: Pressure ulcer of lower back POA Stage 3 In the setting of recent back surgery and being bedbound. Wound cx with MRSA. Continue daptomycin. Local care. Offload pressure US 11/19 with small fluid collection underneath (6) Chronic steroid use: Plan: IV hydrocortisone as above for surgery -convert to oral prednisone after a few days of stress dosed steroids (7) Spinal stenosis: Plan: S/p lumbar decompression, fusion with Dr. Velazco on 11/04/2022. Lumbar spine CT on 11/14 showed expected postsurgical soft tissue swelling/no acute fractures. MRI L-spine with severe stenosis from mass effect from abscess as above Dcd tramadol as causing hallucinations continue APAP po 650mh po q6h prn continue hydrocodone 5/325mg po q4h prn as this was tolerated last admission avoid baclofen in future as this caused significant lethargy in combo with oxycodone at SNF -needs rehab (8) Acute encephalopathy: Plan: Acute toxic encephalopathy present on admission due to baclofen and oxycodone administration along with sepsis and bacteremia. Now resolved. These medications have been discontinued. Supportive care (9) HTN (hypertension): Plan: Hypotensive on admission secondary to adrenal insufficiency in setting of infection Now resolved with IV hydrocortisone Metoprolol has been restarted continue to hold home amlodipine and lisinopril and may not need them for a while (10) Prostate cancer metastatic to bone: Plan: Stage IV with bone mets. -pt requests to check his PSA while here-PSA good at 0.446, similar to previous -continue Zytiga -follows with Dr. Liriano for Oncology (11) Depression: Plan: Suicidal ideations have been ruled out. 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 Not medically ready for discharge yet Admission and Anticipated Discharge Date Admission Date: November 14, 2022 Subjective Pt feels ok, no SOB. Pain in back is controlled. Had 400mL out of MATTHEW drain overnight. No further diarrhea Tele with Afib, rates controlled Physical Exam Constitutional: WD/WN, vitals as above Neck: trachea midline, no thyromegaly Respiratory: normal respiratory effort, lungs clear to auscultation Cardiovascular: Rate/Rhythm: regular rate and + irregularly irregular Heart Sounds: no murmur Extremities: + edema (1+ pitting edema legs bilat, improved) Gastrointestinal (Abdomen): normal bowel sounds, soft, nontender, no hepatosplenomegaly Musculoskeletal: Extremities: extremities normal to inspection; no cyanosis and no clubbing Neurologic: moves all extremities and awake; no focal motor deficits Psychiatric: A+Ox3, euthymic affect Results & Data Results & Data Vital Signs (Past 12 Hours) Vital Signs Temp Pulse Pulse Resp BP BP Pulse Ox 11/21/22 16:18 36.5 C 87 19 103/75 97 11/21/22 14:57 97 H 11/21/22 10:58 36.6 C 90 22 121/83 98 11/21/22 08:00 84 11/21/22 08:00 11/21/22 07:29 36.7 C 86 21 129/90 97 O2 Del Method O2 Flow Rate 11/21/22 16:18 Room Air 11/21/22 14:57 11/21/22 10:58 Nasal Cannula 11/21/22 08:00 11/21/22 08:00 Nasal Cannula 2 11/21/22 07:29 Nasal Cannula 1 Laboratory Results CBC, BMP magnesium reviewed PG Care Time/CCT Total # of Minutes Spent Total Time Spent with Patient: Total time spent is greater than 50% in coordination of care (as documented) at patient's floor/unit and/or counseling patient: Coding Level of Care Code 76358 SUB INP/OBS CARE 3/50MIN Diagnoses MRSA bacteremia R78.81; B95.62 Adrenal insufficiency E27.40 Diarrhea R19.7 Hyponatremia E87.1 Pressure ulcer, back, lower L89.109 Chronic steroid use Spinal stenosis M48.00 Spinal region: unspecified Acute encephalopathy G93.40 HTN (hypertension) I10 Prostate cancer metastatic to bone C61; C79.51 Depression F32.9 DMII (diabetes mellitus, type 2) E11.9 Atrial fibrillation I48.91 IPMN (intraductal papillary mucinous neoplasm) D49.0 (7) Spinal stenosis Spinal region: unspecified Qualified Code(s): M48.00 - Spinal stenosis, site unspecified
[2022-11-22] MEDS: ABIRATERONE ACETATE PO SCH (06:07)
[2022-11-22 06:14] LABS: Hematocrit (blood only) 31.8 % (42.0-52.0); Hemoglobin 10.4 g/dl (14.0-18.0); Mean Corpuscular Hemoglobin 31.2 pg (25.0-34.0); Mean Corpuscular Hgb Conc 32.7 g/dL (32.0-36.0); Mean Corpuscular Volume 95.5 fL (80.0-100.0); Mean Platelet Volume 9.4 fL (9.4-12.4); Nucleated RBC # (auto) 0.09 K/uL (0.00-0.12); Nucleated RBC % (auto) 0.8 %; Platelet Count 259 K/uL (130-400); RDW Coefficient of Variation 16.3 % (11.5-14.5); Red Blood Count 3.33 M/uL (4.70-6.10); White Blood Count 11.39 K/ul (4.8-10.8)
[2022-11-22 06:27] LABS: BUN Creatinine Ratio 20.2 (10-20); Creatinine Clr Calc Pharmacy 68.6 ml/min; Est GFR (African American) 79.3 ml/min; Est GFR (Non-African American) 68.4 ml/min; Potassium 4.5 mmol/L (3.5-5.1)
[2022-11-22 06:37] LABS: ANC (manual) 9.68 K/uL (1.4-6.5); Lymphocytes % (manual) 7 %; Metamyelocytes # (manual) 0.46 K/uL (0-0); Metamyelocytes % (manual) 4 %; Monocytes # (manual) 0.11 K/uL (0.11-0.59); Monocytes % (manual) 1 %; Myelocytes # (manual) 0.34 K/uL (0-0); Myelocytes % (manual) 3 %; Neutrophils # (manual) 9.68 K/uL (1.40-6.50); Neutrophils % (manual) 85 %; Polychromasia 1+; Tear Drop Cells 1+
[2022-11-22] MEDS: INSULIN ASPART PER UNIT CHARGE SC SCH ×4 (08:30→20:27)
[2022-11-22] MEDS: METOPROLOL SUCC 50MG EXT REL TAB PO SCH (08:32)
[2022-11-22] MEDS: ADVANCED PROBIOTIC 1250 MG CAPSULE PO SCH (08:32)
[2022-11-22] MEDS: HYDROCORTISONE SOD 50 MG in SYRINGE 0 ML IV SCH ×2 (08:32→21:14)
[2022-11-22] MEDS: PANTOprazole 40 MG TAB PO SCH (08:33)
[2022-11-22] MEDS: LANTUS PER UNIT CHARGE SQ SCH ×2 (08:43→21:12)
[2022-11-22] MEDS: HYDROCODONE/ACETAMOPHEN 5/325MG TAB PO PRN ×2 (09:03→18:33)
[2022-11-22] MEDS: HYDROmorphone INJ 0.5 MG/0.5 ML SYR IV PRN ×2 (09:05→22:53)
--- NOTE | 2022-11-22 09:59 | Orthopedic Progress Note ---
Date of Service November 22, 2022 Assessment & Plan (1) 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: Plan: At this time we will maintain the MATTHEW drains. Continue to encourage him to sit up as tolerated. Hopefully get to a chair this weekend. Admission and Anticipated Discharge Date Admission Date: November 14, 2022 Subjective Patient's back pain is improving. He was able to sit up for 15 minutes today and tolerated this well. Physical Exam Physical Exam: On exam he is comfortable. strength intact lower extremities. Results & Data Vital Signs (Past 12 Hours) Vital Signs Temp Pulse Pulse Resp BP Pulse Ox O2 Del Method 11/22/22 07:38 90 11/22/22 07:22 36.6 C 93 H 18 127/95 97 Room Air 11/22/22 03:29 36.6 C 89 17 114/79 94 Room Air 11/21/22 23:00 85 11/21/22 22:27 36.9 C 94 H 18 120/84 94 Room Air
--- NOTE | 2022-11-22 10:10 | Infectious Disease Progress Nt ---
Date of Service November 22, 2022 Assessment & Plan (1) MRSA bacteremia: (2) Acute encephalopathy: Plan This is a 77 year old male with a pmh of prostate cancer with mets to spine, spinal stenosis s/p lumbar decompression with hardware on 11/04, A fib, DM2,presents with generalized pain and lethargy . He was admitted 10/24-11/12 and dx with covid, LL dvt and underwent lumbar decompression. He returns a few days later with lethargy and back pain. He denied fever, chillls, n/v/ sob, eller, change in urine and bowel habits. In ed noted to be hypotensive and tachycardic. Labs noted for wbc 10.52 bun/cr 16/0.85,procal 0.23. CT head unremarkable. CTA lung w/o PE, = interstitial lung disease w/o pna. CTAB shows postsurgical changes of decompression and fusion of the lower lumbar spine, re-demonstration of a few sclerotic foci most prominently in the sacrum, atrophic right kidney with severe right hydroureteronephrosis ( not new). CT lumbar spine shows interval placement of posterior fixation hardware with expected postsurgical soft tissue swelling and subcutaneous emphysema . A wound noted on his back and was cultured. WCx grew MRSA and BC grew in 1/4 bottles MRSA. EMELYN without vegatations. ID consulted for Mrsa bacteremia and back wound. Micro BC /06 10/ bottle MRSA (S vanc,dapt, tet) WC 11/14 MRSA BC 11/16 NGTD OR epidural abscess 11/20; g/s GPC, culture MRSA (S vanc,dapt, tet) Abx zosyn 11/14-11/15 Dapto 11/14- ongoing #MRSA Bacteremia #MRSA post op surgical wound #MRSA spinal abscess s/p lumbar decompression and hardware ( 11/04/22) #Lumbar fixation hardware in place MRSA bacteremia is likely 2/2 post op MRSA wound surgical wound . Wound is at prior drain site. there is some dried drainage at site on my initial exam on 11/19. Incision with tiny opening but dry. . TTE is negative for vegetation ,+ AV sclerosis. CTt spine with contast - lumbar shows shows posterior fixation hardware with postsurgical soft tissue swelling and subcutaneous emphysema. A soft tissue US showed a small subincisional debris-containing fluid collection which measures 1.3 x 0.6 x 0.6 cm: could be a post op complex seroma or hematoma or small abscess. MRI showed a 4.8 x 11.5 x 4.5 cm laminectomy bed fluid collection adjacent to the hardware with significant mass effect upon the thecal sac and results in moderate to severe central canal stenosis. There is also multiloculated subdural collections within the lower thoracic and upper lumbar canals and increased fluid signal within the L3-L4 and L4-L5 disc spaces ( postsurgical vs Discitis) could appear similar. However, an adjacent endplates are intact without evidence for acute osteomyelitis Also found to have non specific edema within the b/l psoas He underwent I +D of Abscess in epidural space of L2-L5 on 11/20. OP report reviewed: significant sanguineous purulent fluid identified. The lumbar spine incision was debrided of any necrotic looking tissue. Vancomycin and gentamicin beads placed throughout the epidural space and gutters. Abscess cx G/S + GPC , Cx MRSA ( prelim) Recs- Continue IV Dapto8 mg/kg iv daily Follow up OR cx 11/20 Per pt he is Pending RTOR for further intervention Anticipate 6 weeks IV abx From LAST OR intervention followed by oral suppression if hardware remains. ID will continue to follow. Krista Newsome MD, MPH Infectious Disease [facility], [facility] Call [phone] with questions Admission and Anticipated Discharge Date Admission Date: November 14, 2022 Subjective This patient recommendation is based on a telemedicine consult request which was completed asynchronously through chart review and information provided by the primary physician. The patient was not seen or examined today. The evaluation is consultative in nature and all patient care and treatment decisions can either be accepted or rejected by the patient's primary hospital-based treating physician using their own independent medical judgment for their patient. Time Spent Reviewing Chart: 11 - 20 minutes 11/20 intraop abscess cx + MRSA wbc 11.39, cr 1.04 Results & Data Vital Signs (Past 12 Hours) Vital Signs Temp Pulse Pulse Resp BP Pulse Ox O2 Del Method 11/22/22 07:38 90 11/22/22 07:22 36.6 C 93 H 18 127/95 97 Room Air 11/22/22 03:29 36.6 C 89 17 114/79 94 Room Air 11/21/22 23:00 85 11/21/22 22:27 36.9 C 94 H 18 120/84 94 Room Air Laboratory Results Short CBC 11/22/22 Range/Units 05:49 WBC 11.39 H (4.8-10.8) K/ul Hgb 10.4 L (14.0-18.0) g/dl Hct 31.8 L (42.0-52.0) % Plt Count 259 (130-400) K/uL BMP 11/22/22 05:49 Sodium 131 L Potassium 4.5 Chloride 99 Carbon Dioxide 27 BUN 21 Creatinine 1.04 Glucose 200 H Calcium 8.0 L Diagnostic Findings Microbiology 11/20/22 14:44 Back,Lower Gram Stain - Final 11/20/22 14:44 Back,Lower Aerobic and Anaerobic Culture - Preliminary Staph aureus MRSA 11/16/22 05:53 Blood Aerobic Blood Culture - Final No growth in Aerobic bottle after 5 days. 11/16/22 05:53 Blood Anaerobic Blood Culture - Final 11/16/22 05:46 Blood Aerobic Blood Culture - Final No growth in Aerobic bottle after 5 days. 11/16/22 05:46 Blood Anaerobic Blood Culture - Final No growth in Anaerobic bottle after 5 days. 11/14/22 14:53 Blood Aerobic Blood Culture - Final No growth in Aerobic bottle after 5 days. 11/14/22 14:53 Blood Anaerobic Blood Culture - Final Staph aureus MRSA 11/14/22 14:50 Blood Aerobic Blood Culture - Final No growth in Aerobic bottle after 5 days. 11/14/22 14:50 Blood Anaerobic Blood Culture - Final No growth in Anaerobic bottle after 5 days. 11/14/22 18:10 Back Gram Stain - Final 11/14/22 18:10 Back Wound Culture - Final Staph aureus MRSA Lumbar Spine MRI 11/19/22 07:49 MRI OF THE LUMBAR SPINE WITHOUT CONTRAST CLINICAL HISTORY: Postoperative evaluation. COMPARISON STUDY: Lumbar spine MRI October 13, 2022. Lumbar spine CT November 14, 2022. TECHNIQUE: Utilizing a 1.5 Syeda magnet and dedicated coil, multiplanar, mult iecho imaging of the lumbar spine was performed without IV contrast. FINDINGS: This exam is mildly compromised by artifact. For purposes of numbering on this exam, the L5-S1 disc space is assigned to axial image 30 of 36. There are postoperative findings consistent with L3-S1 discectomy, posterior decompression and bilateral pedicle screw fusion. A laminectomy bed fluid collection measures 12.8 x 11.5 x 4.5 cm. Layering material within the dependent aspect of the fluid collection is noted. This has significant mass effect upon the thecal sac and results in moderate to severe central canal stenosis. In addition, suspected subdural multiloculated fluid collection is noted. The largest component is at the L2 level, measuring 4.2 x 0.8 x 1.4 cm. However, there is probable anterior subdural component at the T12-L1 and additional posterior subdural component at the T11-T12 level. This may be partially imaged on this exam. There is mild edema within the bilateral psoas muscles. No definite fluid collections within the psoas muscles are noted. T1 and T2 hypointense foci within the lower sacrum are better depicted on prior CT and PET/CT. No additional suspicious osseous lesions are present. There is increased fluid signal within the L3-L4 and L4-L5 disc spaces. This is nonspecific. This could be postsurgical. No definite evidence for osteomyelitis on this examination. IMPRESSION: 1. Status post L3-S1 discectomy, posterior decompression bilateral pedicle screw fusion. 4.8 x 11.5 x 4.5 cm laminectomy bed fluid collection adjacent to the hardware. This has significant mass effect upon the thecal sac and results in moderate to severe central canal stenosis. This is nonspecific in the early postoperative setting and sterility cannot be assessed by MRI. 2. Multiloculated suspected subdural collections within the lower thoracic and upper lumbar canals, described above. 3. Increased fluid signal within the L3-L4 and L4-L5 disc spaces. This is probably postsurgical. Discitis could appear similar. However, an adjacent endplates are intact without evidence for acute osteomyelitis. 4. Nonspecific edema within the bilateral psoas muscles without associated fluid collection. 5. Exam mildly compromised by motion artifact. ACT 112: Negative or not required by law. Electronically signed by: Americo Woodard M.D. 11/19/2022 11:29 AM Soft Tissue Ultrasound 11/19/22 07:56 US hellentissuyeni flower/fanny back CLINICAL HISTORY: assess for abscess at lower back wound site COMPARISON STUDY: CT of the abdomen and pelvis November 14, 2022. TECHNIQUE: Sonography of the back at site of recent surgery was performed. FINDINGS: There is a small subincisional fluid collection measures 1.3 x 0.6 x 0.6 cm. This contains debris. IMPRESSION: Small subincisional debris-containing fluid collection which measures 1.3 x 0.6 x 0.6 cm. This is nonspecific in the early postoperative setting and could reflect a complex seroma or hematoma. A small abscess could appear similar. ACT 112: Negative or not required by law. Electronically signed by: Americo Woodard M.D. 11/19/2022 11:44 AM Medications Administered Home Medications Medication Instructions Recorded Confirmed Last Taken abiraterone 500 mg tablet (Zytiga) 1,000 mg PO QAM 07/13/18 11/14/22 11/14/22 calcium carbonate 500 mg-vitamin 1 tab PO QAM 07/13/18 11/14/22 11/14/22 D3 5 mcg (200 unit) tablet (Calcium 500 + D) sertraline 100 mg tablet 100 mg PO QAM #90 tabs 09/01/19 11/14/22 11/14/22 oxycodone 5 mg tablet 5 mg PO Q4H PRN Pain 03/16/20 11/14/22 11/14/22 12:00 metoprolol succinate 200 mg 200 mg PO DAILY #90 tabs 07/15/22 11/14/22 11/14/22 tablet,extended release 24 hr amlodipine 10 mg tablet 10 mg PO QAM #90 tabs 07/18/22 11/14/22 11/14/22 lisinopril 20 mg tablet 20 mg PO DAILY #90 tabs 07/23/22 11/14/22 11/14/22 omeprazole 20 mg delayed 20 mg PO QAM #90 tabs 09/03/22 11/14/22 11/14/22 release,disintegrating tablet multivitamin with minerals 1 tab PO DAILY 09/24/22 11/14/22 11/14/22 ondansetron 4 mg disintegrating 4 mg PO Q8H PRN NAUSEA/VOMITING 09/24/22 11/14/22 11/13/22 tablet triamcinolone acetonide 0.1 % 1 applic topical .AMPM 09/24/22 11/14/22 10/24/22 topical cream baclofen 10 mg tablet 10 mg PO TID #0 tabs 10/19/22 11/14/22 11/14/22 12:30 loratadine 10 mg tablet (Wal-itin) 10 mg PO DAILY #0 tabs 10/19/22 11/14/22 11/14/22 glimepiride 2 mg tablet 2 mg PO QAM 10/24/22 11/14/22 11/14/22 prednisone 5 mg tablet 5 mg PO BID 11/06/22 11/14/22 11/14/22 08:30 amoxicillin 875 mg tablet 875 mg PO BID #0 tabs 11/12/22 11/14/22 11/14/22 08:30 cyanocobalamin (vitamin B-12) 500 1,000 mcg PO QAM #0 tabs 11/12/22 11/14/22 11/14/22 mcg tablet acetaminophen 325 mg tablet 650 mg PO Q6 PRN Pain 1-4 11/14/22 11/14/22 11/12/22 atorvastatin 20 mg tablet 20 mg PO HS 11/14/22 11/14/22 11/13/22 20:30 nitroglycerin 0.4 mg sublingual 0.4 mg sublingual Q5M PRN Chest 11/14/22 11/14/22 Unknown tablet (Nitrostat) Pain oxycodone 10 mg tablet,crush 10 mg PO AMHS 11/14/22 11/14/22 11/14/22 08:30 resistant,extended release 12 hr (OxyContin) Active Medications Generic Name Dose Route Start Last Admin Trade Name Demetriusq PRN Reason Stop Dose Admin Abiraterone Acetate 2 each 11/15/22 16:45 11/22/22 06:07 Abiraterone Acetate PO 12/15/22 16:44 2 each DAILY MIESHA Administration Hydrocodone Bitart/Acetaminophen 1 tab 11/16/22 12:40 11/21/22 21:30 Hydrocodone/Acetamophen 5/325mg Tab PO 11/30/22 12:39 1 tab Q4H PRN Administration moderate-severe Pain Hydromorphone HCl 0.5 mg 11/20/22 18:52 11/22/22 09:05 Hydromorphone Inj 0.5 Mg/0.5 Ml Syr IV 12/04/22 18:51 0.5 mg Q6H PRN Administration moderate-severe pain Daptomycin 800 mg/ Syringe 16 mls @ 8 mls/min 11/20/22 16:00 11/21/22 16:44 IV 01/01/23 18:05 8 mls/min Q24H MIESHA Administration Protocol Hydrocortisone Sodium 1 mls @ 4 mls/min 11/22/22 09:00 11/22/22 08:32 Succinate 50 mg/ Syringe IV 12/22/22 08:59 4 mls/min Q12 MIESHA Administration Insulin Aspart 0 units 11/20/22 16:35 11/22/22 08:30 Insulin Aspart Per Unit Charge SC 12/20/22 16:34 6 units ACHS MIESHA Administration Insulin Glargine 5 units 11/16/22 09:15 11/22/22 08:43 Lantus Per Unit Charge SQ 12/16/22 09:14 5 units BID MIESHA Administration Lactobacillus Acidophilus 2 cap 11/17/22 18:15 11/22/22 08:32 Advanced Probiotic 1250 Mg Capsule PO 12/17/22 18:14 2 cap DAILY MIESHA Administration Loperamide HCl 2 mg 11/16/22 15:10 11/18/22 20:31 Loperamide Hcl 2 Mg Cap PO 12/16/22 15:09 2 mg Q6H PRN Administration Loose Stool Lorazepam 1 mg 11/19/22 18:11 11/19/22 20:56 Lorazepam 1 Mg Tab PO 12/19/22 18:10 1 mg HS PRN Administration anxiety or insomnia Metoprolol Succinate 200 mg 11/15/22 09:00 11/22/22 08:32 Metoprolol Succ 50mg Ext Rel Tab PO 12/15/22 08:59 200 mg QAM MIESAH Administration Pantoprazole Sodium 40 mg 11/15/22 09:00 11/22/22 08:33 Pantoprazole 40 Mg Tab PO 12/15/22 08:59 40 mg QAM MIESHA Administration
--- NOTE | 2022-11-22 15:19 | Hospitalist Progress Note ---
Date of Service November 22, 2022 Assessment & Plan (1) MRSA bacteremia: Plan: Currently on intravenous daptomycin. Infectious disease consultation and recommendations appreciated. He will require intravenous daptomycin for 6 weeks. Eventually PICC line will need to be placed. TTE negative for valvular vegetations. Blood cultures obtained on November 16 remain negative to date. MRI L-spine 11/19 showed 4.8 x 11.5 x 4.5 cm laminectomy bed fluid collection adjacent to the hardware. This has significant mass effect upon the thecal sac and results in moderate to severe central canal stenosis. This is nonspecific in the early postoperative setting and sterility cannot be assessed by MRI. Multiloculated suspected subdural collections within the lower thoracic and upper lumbar canals. Increased fluid signal within the L3-L4 and L4-L5 disc spaces. This is probably postsurgical. Discitis could appear similar. However, an adjacent endplates are intact without evidence for acute osteomyelitis. Nonspecific edema within the bilateral psoas muscles without associated fluid collection. (2) Epidural abscess: Plan: Extensive abnormality documented on lumbar spine MRI scan completed November 19. Subsequent incision and drainage procedure completed November 20. (3) Bacteremia: Plan: MRSA isolated. He is now on intravenous daptomycin. Infectious disease consultation and recommendations appreciated. He will require daptomycin intravenously for 6 weeks. PICC line will eventually need to be placed. (4) Adrenal insufficiency: Plan: Currently on parenteral steroid therapy. This will be tapered down to his usual oral prednisone dosage 5mg po bid (5) Diarrhea: Plan: C. diff negative. Now constipated. MiraLAX ordered (6) Hyponatremia: Plan: Probably related to fluid overload. Improved with IV Lasix diuresis. Serial labs (7) Pressure ulcer, back, lower: Plan: Stage III. Local care. (8) Chronic steroid use: Plan: IV hydrocortisone currently. Eventual switch back to his usual oral prednisone dosage. (9) Spinal stenosis: Plan: S/p lumbar decompression, fusion with Dr. Velazco on 11/04/2022. Lumbar spine CT on 11/14 showed expected postsurgical soft tissue swelling/no acute fractures. MRI L-spine with severe stenosis from mass effect from abscess as above. Discontinued tramadol due to hallucinations. Pain is currently controlled with acetaminophen and Vicodin. (10) Acute encephalopathy: Plan: Acute combined metabolic and toxic encephalopathy present on admission due to baclofen and oxycodone administration along with sepsis and bacteremia. Now resolved. These medications have been discontinued. Supportive care (11) HTN (hypertension): Plan: Hypotensive on admission secondary to adrenal insufficiency in setting of infection. Now resolved with IV hydrocortisone. Metoprolol has been restarted. Amlodipine and lisinopril remain on hold (12) Prostate cancer metastatic to bone: Plan: Stage IV with bone mets. Continue Zytiga . Follows with Dr. Liriano for Oncology (13) Depression: Plan: Suicidal ideations have been ruled out. Continue sertraline (14) DMII (diabetes mellitus, type 2): Plan: With significant hyperglycemia on steroids now improving with increased insulin regimen. (15) Atrial fibrillation: Plan: Rates fairly well controlled. Continue Metoprolol. Not on AC due to h/o bleeding with prostate CA. Telemetry (16) IPMN (intraductal papillary mucinous neoplasm): Plan: noted on CT abd/pel. Continue outpatient oncology management Plan Anticipate eventual discharge to SNF for continued IV antibiotic therapy. Probable return to Center care Admission and Anticipated Discharge Date Admission Date: November 14, 2022 Subjective Alert and oriented. No complaints. He remains on intravenous daptomycin and infectious disease is recommending treatment for 6 weeks. He will need a PICC line eventually. Orthopedic spine surgery entry noted. He had a washout procedure done November 20. Hopefully this will not need to be repeated. He remains on intravenous hydrocortisone with eventual switch back to his oral prednisone dosage. Review of Systems Review of Systems: Constitutional-no fever or chills ENT-no blurred vision, no double vision, no epistaxis, no sore throat Respiratory-no cough, no wheezing, no shortness of breath Cardiac-no palpitations, no chest pain, no syncope GI-no nausea, vomiting, diarrhea, melena, hematochezia -no urinary retention, no urinary incontinence, no dysuria, no hematuria Musculoskeletal-postoperative low back discomfort as expected . No joint pain, no muscle tenderness Skin-no bruising, no rashes, no pruritus Neuro-no isolated weakness, no paresthesia, no weakness Psych-no depression, no anxiety Physical Exam Physical Exam: General-alert and oriented x3, no fevers, no chills HEENT-head atraumatic and normocephalic, pupils equal and reactive to light, extraocular muscles intact Neck-no lymphadenopathy or thyromegaly, trachea midline Chest-clear to auscultation percussion. No rales wheezing or rhonchi Cardiac-regular rate and rhythm, normal S1 and S2 Abdomen-normal bowel sounds, nontender, no hepatosplenomegaly Extremities-mild pitting edema both legs below the knees. Neuro-cranial nerves II through XII intact, motor and sensory function within normal limits, strength symmetrical , no focal deficits Psych-normal affect, normal mood Results & Data Results & Data Vital Signs (Past 12 Hours) Vital Signs Temp Pulse Pulse Resp BP BP Pulse Ox 11/22/22 11:06 36.7 C 94 H 17 105/74 96 11/22/22 07:38 90 11/22/22 07:22 36.6 C 93 H 18 127/95 97 11/22/22 03:29 36.6 C 89 17 114/79 94 O2 Del Method 11/22/22 11:06 Room Air 11/22/22 07:38 11/22/22 07:22 Room Air 11/22/22 03:29 Room Air Laboratory Results 11/22/22 05:49 11/22/22 05:49 PG Care Time/CCT Total # of Minutes Spent Total Time Spent with Patient: Total time spent is greater than 50% in coordination of care (as documented) at patient's floor/unit and/or counseling patient: Coding Level of Care Code 19608 SUB INP/OBS CARE 3/50MIN Diagnoses MRSA bacteremia R78.81; B95.62 Epidural abscess G06.2 Bacteremia R78.81 Adrenal insufficiency E27.40 Diarrhea R19.7 Hyponatremia E87.1 Pressure ulcer, back, lower L89.109 Chronic steroid use Spinal stenosis M48.00 Spinal region: unspecified Acute encephalopathy G93.40 HTN (hypertension) I10 Prostate cancer metastatic to bone C61; C79.51 Depression F32.9 DMII (diabetes mellitus, type 2) E11.9 Atrial fibrillation I48.91 IPMN (intraductal papillary mucinous neoplasm) D49.0 (9) Spinal stenosis Spinal region: unspecified Qualified Code(s): M48.00 - Spinal stenosis, site unspecified
[2022-11-22] MEDS: POLYETHYLENE (MIRALAX) 17 GM PACK PO SCH (15:47)
[2022-11-22] MEDS: DAPTOmycin 800 MG in SYRINGE 0 ML IV SCH (16:51)
[2022-11-23] MEDS: POLYETHYLENE (MIRALAX) 17 GM PACK PO SCH (08:17)
[2022-11-23] MEDS: PANTOprazole 40 MG TAB PO SCH (08:18)
[2022-11-23] MEDS: ADVANCED PROBIOTIC 1250 MG CAPSULE PO SCH (08:18)
[2022-11-23] MEDS: METOPROLOL SUCC 50MG EXT REL TAB PO SCH (08:18)
[2022-11-23] MEDS: ABIRATERONE ACETATE PO SCH (08:18)
[2022-11-23] MEDS: HYDROCORTISONE SOD 50 MG in SYRINGE 0 ML IV SCH (08:18)
[2022-11-23] MEDS: INSULIN ASPART PER UNIT CHARGE SC SCH ×4 (08:22→21:14)
[2022-11-23] MEDS: LANTUS PER UNIT CHARGE SQ SCH ×2 (08:23→21:14)
[2022-11-23] MEDS: HYDROCODONE/ACETAMOPHEN 5/325MG TAB PO PRN ×2 (08:34→17:58)
[2022-11-23 08:38] LABS: BUN Creatinine Ratio 24.7 (10-20); Calcium 8.3 mg/dl (8.6-10.3); Creatinine Clr Calc Pharmacy 91.7 ml/min; Est GFR (African American) 100.7 ml/min; Est GFR (Non-African American) 86.9 ml/min; Potassium 4.3 mmol/L (3.5-5.1)
[2022-11-23 08:54] LABS: Hematocrit (blood only) 35.4 % (42.0-52.0); Hemoglobin 11.5 g/dl (14.0-18.0); Mean Corpuscular Hemoglobin 30.7 pg (25.0-34.0); Mean Corpuscular Hgb Conc 32.5 g/dL (32.0-36.0); Mean Corpuscular Volume 94.4 fL (80.0-100.0); Mean Platelet Volume 9.6 fL (9.4-12.4); Nucleated RBC # (auto) 0.08 K/uL (0.00-0.12); Nucleated RBC % (auto) 0.7 %; Platelet Count 311 K/uL (130-400); RDW Coefficient of Variation 16.5 % (11.5-14.5); RDW Standard Deviation 55.9 fL (36.4-46.3); Red Blood Count 3.75 M/uL (4.70-6.10); White Blood Count 11.12 K/ul (4.8-10.8)
[2022-11-23 09:04] LABS: ALC (manual) 0.56 K/uL (1.2-3.4); ANC (manual) 9.67 K/uL (1.4-6.5); Hypochromasia Present; Lymphocytes # (manual) 0.56 K/uL (1.2-3.4); Lymphocytes % (manual) 5 %; Metamyelocytes # (manual) 0.11 K/uL (0-0); Metamyelocytes % (manual) 1 %; Monocytes # (manual) 0.44 K/uL (0.11-0.59); Monocytes % (manual) 4 %; Neutrophils # (manual) 9.67 K/uL (1.40-6.50); Neutrophils % (manual) 87 %; Polychromasia 1+; Promyelocytes # (manual) 0.33 K/uL (0-0); Promyelocytes % (manual) 3 %; Tear Drop Cells 1+; Toxic Granulation 1+
--- NOTE | 2022-11-23 10:06 | Orthopedic Progress Note ---
Date of Service November 23, 2022 Assessment & Plan (1) 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: Plan: At this time his goal is to transfer to a chair today. He is now also sleeping on his side which have encouraged. Understands there is a long course of r ecovery as he has become quite deconditioned from prolonged bedrest. Admission and Anticipated Discharge Date Admission Date: November 14, 2022 Subjective Back pain controlled. Leg symptoms are improving. He is tolerating physical therapy. Physical Exam Physical Exam: On exam he send in bed. He is comfortable. Results & Data Vital Signs (Past 12 Hours) Vital Signs Temp Pulse Pulse Resp BP Pulse Ox O2 Del Method 11/23/22 08:24 94 H 23 118/82 96 Room Air 11/23/22 07:39 84 11/23/22 03:21 36.4 C L 87 16 118/83 95 Room Air 11/22/22 23:00 93 H 11/22/22 22:58 36.7 C 93 H 18 122/87 95 Room Air
[2022-11-23] MEDS: dilTIAZem HCL 30 MG TAB PO SCH ×3 (12:04→21:14)
[2022-11-23] MEDS: HYDROmorphone INJ 0.5 MG/0.5 ML SYR IV PRN (12:50)
--- NOTE | 2022-11-23 13:50 | Hospitalist Progress Note ---
Date of Service November 23, 2022 Assessment & Plan (1) MRSA bacteremia: Plan: Currently on intravenous daptomycin. Infectious disease consultation and recommendations appreciated. He will require intravenous daptomycin for 6 weeks. Eventually PICC line will need to be placed. TTE negative for valvular vegetations. Blood cultures obtained on November 16 remain negative to date. MRI L-spine 11/19 showed 4.8 x 11.5 x 4.5 cm laminectomy bed fluid collection adjacent to the hardware. This has significant mass effect upon the thecal sac and results in moderate to severe central canal stenosis. This is nonspecific in the early postoperative setting and sterility cannot be assessed by MRI. Multiloculated suspected subdural collections within the lower thoracic and upper lumbar canals. Increased fluid signal within the L3-L4 and L4-L5 disc spaces. This is probably postsurgical. Discitis could appear similar. However, an adjacent endplates are intact without evidence for acute osteomyelitis. Nonspecific edema within the bilateral psoas muscles without associated fluid collection. (2) Epidural abscess: Plan: Extensive abnormality documented on lumbar spine MRI scan completed November 19. Subsequent incision and drainage procedure completed November 20. (3) Bacteremia: Plan: MRSA isolated. He is now on intravenous daptomycin. Infectious disease consultation and recommendations appreciated. He will require daptomycin intravenously for 6 weeks. PICC line will eventually need to be placed. (4) Adrenal insufficiency: Plan: Parenteral steroids have been converted to his usual oral prednisone dose today, November 23. Stable overall (5) Diarrhea: Plan: C. diff negative. Now constipated. MiraLAX ordered (6) Hyponatremia: Plan: Probably related to fluid overload. Improved with IV Lasix diuresis. Serial labs (7) Pressure ulcer, back, lower: Plan: Stage III. Local care. (8) Chronic steroid use: Plan: IV hydrocortisone currently. Eventual switch back to his usual oral prednisone dosage. (9) Spinal stenosis: Plan: S/p lumbar decompression, fusion with Dr. Velzaco on 11/04/2022. Lumbar spine CT on 11/14 showed expected postsurgical soft tissue swelling/no acute fractures. MRI L-spine with severe stenosis from mass effect from abscess as above. Discontinued tramadol due to hallucinations. Pain is currently controlled with acetaminophen and Vicodin. (10) Acute encephalopathy: Plan: Acute combined metabolic and toxic encephalopathy present on admission due to baclofen and oxycodone administration along with sepsis and bacteremia. Now resolved. These medications have been discontinued. Supportive care (11) HTN (hypertension): Plan: Hypotensive on admission secondary to adrenal insufficiency in setting of infection. Resolved with IV hydrocortisone and now switched back to usual oral prednisone dose. Continue metoprolol. Diltiazem added today, November 23, for better heart rate control. Amlodipine and lisinopril have been discontinued (12) Prostate cancer metastatic to bone: Plan: Stage IV with bone mets. Continue Zytiga . Follows with Dr. Liriano for Oncology (13) Depression: Plan: Suicidal ideations have been ruled out. Continue sertraline (14) DMII (diabetes mellitus, type 2): Plan: With significant hyperglycemia on steroids now improved with increased insulin regimen. (15) Atrial fibrillation: Plan: Diltiazem added to metoprolol for better rate control. Amlodipine was previously discontinued. Not on AC due to h/o bleeding with prostate CA. Telemetry (16) IPMN (intraductal papillary mucinous neoplasm): Plan: noted on CT abd/pel. Continue outpatient oncology management Plan Anticipate eventual discharge to SNF for continued IV antibiotic therapy. Probable return to [place] care Admission and Anticipated Discharge Date Admission Date: November 14, 2022 Subjective Awake and alert. Diltiazem has been added for better heart rate control with underlying atrial fibrillation and somewhat rapid ventricular rate. Parenteral steroid therapy has converted back to his usual prednisone dosage. PICC line will need to be placed prior to discharge for continued IV antibiotic therapy for a total of 6 weeks Review of Systems Review of Systems: Constitutional-no fever or chills ENT-no blurred vision, no double vision, no epistaxis, no sore throat Respiratory-no cough, no wheezing, no shortness of breath Cardiac-no palpitations, no chest pain, no syncope GI-no nausea, vomiting, diarrhea, melena, hematochezia -no urinary retention, no urinary incontinence, no dysuria, no hematuria Musculoskeletal-postoperative low back discomfort as expected . No joint pain, no muscle tenderness Skin-no bruising, no rashes, no pruritus Neuro-no isolated weakness, no paresthesia, no weakness Psych-no depression, no anxiety Physical Exam Physical Exam: General-alert and oriented x3, no fevers, no chills HEENT-head atraumatic and normocephalic, pupils equal and reactive to light, extraocular muscles intact Neck-no lymphadenopathy or thyromegaly, trachea midline Chest-clear to auscultation percussion. No rales wheezing or rhonchi Cardiac-irregular rhythm with rapid rate. Normal S1 and S2 Abdomen-normal bowel sounds, nontender, no hepatosplenomegaly Extremities-mild pitting edema both legs below the knees. Neuro-cranial nerves II through XII intact, motor and sensory function within normal limits, strength symmetrical , no focal deficits Psych-normal affect, normal mood Results & Data Results & Data Vital Signs (Past 12 Hours) Vital Signs Temp Pulse Pulse Resp BP Pulse Ox O2 Del Method 11/23/22 11:28 36.6 C 101 H 23 130/89 97 Room Air 11/23/22 08:24 94 H 23 118/82 96 Room Air 11/23/22 07:39 84 11/23/22 03:21 36.4 C L 87 16 118/83 95 Room Air Laboratory Results 11/23/22 07:51 11/23/22 07:51 PG Care Time/CCT Total # of Minutes Spent Total Time Spent with Patient: Total time spent is greater than 50% in coordination of care (as documented) at patient's floor/unit and/or counseling patient: Coding Level of Care Code 02723 SUB INP/OBS CARE 3/50MIN Diagnoses MRSA bacteremia R78.81; B95.62 Epidural abscess G06.2 Bacteremia R78.81 Adrenal insufficiency E27.40 Diarrhea R19.7 Hyponatremia E87.1 Pressure ulcer, back, lower L89.109 Chronic steroid use Spinal stenosis M48.00 Spinal region: unspecified Acute encephalopathy G93.40 HTN (hypertension) I10 Prostate cancer metastatic to bone C61; C79.51 Depression F32.9 DMII (diabetes mellitus, type 2) E11.9 Atrial fibrillation I48.91 IPMN (intraductal papillary mucinous neoplasm) D49.0 (9) Spinal stenosis Spinal region: unspecified Qualified Code(s): M48.00 - Spinal stenosis, site unspecified
[2022-11-23] MEDS: ONDANSETRON INJ 2 MG/ML 2 ML VIAL IV PRN (13:58)
[2022-11-23] MEDS: DAPTOmycin 800 MG in SYRINGE 0 ML IV SCH (16:47)
[2022-11-23] MEDS: LORazepam 1 MG TAB PO PRN (21:14)
[2022-11-23] MEDS: predniSONE 5 MG TAB PO SCH (21:14)
[2022-11-24 06:55] LABS: Hematocrit (blood only) 35.1 % (42.0-52.0); Hemoglobin 11.3 g/dl (14.0-18.0); Mean Corpuscular Hemoglobin 30.9 pg (25.0-34.0); Mean Corpuscular Hgb Conc 32.2 g/dL (32.0-36.0); Mean Corpuscular Volume 95.9 fL (80.0-100.0); Mean Platelet Volume 9.5 fL (9.4-12.4); Nucleated RBC # (auto) 0.08 K/uL (0.00-0.12); Nucleated RBC % (auto) 0.6 %; Platelet Count 278 K/uL (130-400); RDW Coefficient of Variation 16.7 % (11.5-14.5); RDW Standard Deviation 57.6 fL (36.4-46.3); Red Blood Count 3.66 M/uL (4.70-6.10)
[2022-11-24 07:15] LABS: Basophils # (auto) 0.07 K/uL (0.00-0.20); Basophils % (auto) 0.6 %; Immature Granulocytes # (auto) 1.18 K/uL (0.01-0.20); Immature Granulocytes % (auto) 9.5 %; Lymphocytes # (auto) 1.04 K/uL (1.20-3.40); Lymphocytes % (auto) 8.4 %; Monocytes # (auto) 0.72 K/uL (0.11-0.59); Monocytes % (auto) 5.8 %; Neutrophils # (auto) 9.39 K/uL (1.40-6.50); Neutrophils % (auto) 75.7 %; Polychromasia 1+; Tear Drop Cells 1+
[2022-11-24 07:20] LABS: Calcium 8.6 mg/dl (8.6-10.3); Creatinine Clr Calc Pharmacy 87.1 ml/min; Est GFR (African American) 98.2 ml/min; Est GFR (Non-African American) 84.7 ml/min; Potassium 4.8 mmol/L (3.5-5.1)
[2022-11-24] MEDS: PANTOprazole 40 MG TAB PO SCH (08:27)
[2022-11-24] MEDS: dilTIAZem HCL 30 MG TAB PO SCH (08:27)
[2022-11-24] MEDS: ADVANCED PROBIOTIC 1250 MG CAPSULE PO SCH (08:27)
[2022-11-24] MEDS: METOPROLOL SUCC 50MG EXT REL TAB PO SCH (08:27)
[2022-11-24] MEDS: predniSONE 5 MG TAB PO SCH ×2 (08:27→20:41)
[2022-11-24] MEDS: POLYETHYLENE (MIRALAX) 17 GM PACK PO SCH (08:28)
[2022-11-24] MEDS: INSULIN ASPART PER UNIT CHARGE SC SCH ×4 (08:39→20:33)
[2022-11-24] MEDS: LANTUS PER UNIT CHARGE SQ SCH ×2 (08:40→20:41)
[2022-11-24] MEDS ORDERED: Nursing to Pharmacy Communication SCH (09:15)
[2022-11-24] MEDS: ABIRATERONE ACETATE PO SCH ×2 (09:24→10:33)
[2022-11-24] MEDS: dilTIAZem HCL 180 MG CAPCR PO SCH (10:33)
--- NOTE | 2022-11-24 11:21 | Orthopedic Progress Note ---
Date of Service November 24, 2022 Assessment & Plan (1) 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: Plan: This time we will continue to encourage him to sit up as tolerated. Once we have full complement of the physical therapy staff we will begin transitions to a chair. We will maintain the MATTHEW drains for another day. Admission and Anticipated Discharge Date Admission Date: November 14, 2022 Subjective Back pain controlled. He was able to sit up yesterday but was unable to transfer to a chair. Physical Exam Physical Exam: Patient is currently in bed. Peers comfortable. Is neurologically intact lower extremities. Results & Data Vital Signs (Past 12 Hours) Vital Signs Temp Pulse Pulse Resp BP Pulse Ox O2 Del Method 11/24/22 08:25 121/87 11/24/22 08:24 37.1 C 90 24 144/102 H 96 Room Air 11/24/22 07:21 70 11/24/22 03:23 37.1 C 73 16 111/66 95 Room Air
[2022-11-24] MEDS: HYDROCODONE/ACETAMOPHEN 5/325MG TAB PO PRN ×2 (11:46→18:21)
--- NOTE | 2022-11-24 14:00 | Hospitalist Progress Note ---
Date of Service November 24, 2022 Assessment & Plan (1) MRSA bacteremia: Plan: Currently on intravenous daptomycin. Infectious disease consultation and recommendations appreciated. He will require intravenous daptomycin for 6 weeks. Eventually PICC line will need to be placed. We will request placement tomorrow, November 25. TTE negative for valvular vegetations. Blood cultures obtained on November 16 remain negative to date. MRI L-spine 11/19 results noted. (2) Epidural abscess: Plan: Extensive abnormality documented on lumbar spine MRI scan completed November 19. Subsequent incision and drainage procedure completed November 20. (3) Bacteremia: Plan: MRSA isolated. He is now on intravenous daptomycin. Infectious disease consultation and recommendations appreciated. He will require daptomycin intravenously for 6 weeks. PICC line insertion will be requested tomorrow, November 25 (4) Adrenal insufficiency: Plan: Parenteral steroids have been converted to his usual oral prednisone dose on November 23. Stable overall (5) Diarrhea: Plan: C. diff negative. Now constipated. MiraLAX ordered (6) Hyponatremia: Plan: Probably related to fluid overload. Improved with IV Lasix diuresis. Serial labs (7) Pressure ulcer, back, lower: Plan: Stage III. Local care. (8) Chronic steroid use: Plan: IV hydrocortisone has been switched back to his usual oral prednisone dose. (9) Spinal stenosis: Plan: S/p lumbar decompression, fusion with Dr. Velazco on 11/04/2022. Lumbar spine CT on 11/14 showed expected postsurgical soft tissue swelling/no acute fractures. MRI L-spine with severe stenosis from mass effect from abscess as above. Discontinued tramadol due to hallucinations. Pain is currently controlled with acetaminophen and Vicodin. (10) Acute encephalopathy: Plan: Acute combined metabolic and toxic encephalopathy present on admission due to baclofen and oxycodone administration along with sepsis and bacteremia. Now resolved. These medications have been discontinued. Supportive care (11) HTN (hypertension): Plan: Hypotensive on admission secondary to adrenal insufficiency in setting of infection. Resolved with IV hydrocortisone and now switched back to usual oral prednisone dose. Continue metoprolol. Diltiazem added today, November 23, for better heart rate control. Amlodipine and lisinopril have been discontinued (12) Prostate cancer metastatic to bone: Plan: Stage IV with bone mets. Continue Zytiga . Follows with Dr. Liriano for Oncology (13) Depression: Plan: Suicidal ideations have been ruled out. Continue sertraline (14) DMII (diabetes mellitus, type 2): Plan: With significant hyperglycemia on steroids now improved with increased insulin regimen. (15) Atrial fibrillation: Plan: Diltiazem has been added to metoprolol for better rate control. Amlodipine was previously discontinued. Not on AC due to h/o bleeding with prostate CA. Telemetry (16) IPMN (intraductal papillary mucinous neoplasm): Plan: noted on CT abd/pel. Continue outpatient oncology management Plan Anticipate eventual discharge to SNF for continued IV antibiotic therapy. Probable return to [facility] this week Admission and Anticipated Discharge Date Admission Date: November 14, 2022 Subjective Alert and oriented. No new problems. Heart rate is better since initiation of diltiazem which has been switched to the CD formulation today. Will request PICC line placement tomorrow, November 25. Hopeful discharge to [facility] on continued intravenous daptomycin for at least 6 weeks. Review of Systems Review of Systems: Constitutional-no fever or chills ENT-no blurred vision, no double vision, no epistaxis, no sore throat Respiratory-no cough, no wheezing, no shortness of breath Cardiac-no palpitations, no chest pain, no syncope GI-no nausea, vomiting, diarrhea, melena, hematochezia -no urinary retention, no urinary incontinence, no dysuria, no hematuria Musculoskeletal-postoperative low back discomfort as expected . No joint pain, no muscle tenderness Skin-no bruising, no rashes, no pruritus Neuro-no isolated weakness, no paresthesia, no weakness Psych-no depression, no anxiety Physical Exam Physical Exam: General-alert and oriented x3, no fevers, no chills HEENT-head atraumatic and normocephalic, pupils equal and reactive to light, extraocular muscles intact Neck-no lymphadenopathy or thyromegaly, trachea midline Chest-clear to auscultation percussion. No rales wheezing or rhonchi Cardiac-irregular rhythm with rapid rate. Normal S1 and S2 Abdomen-normal bowel sounds, nontender, no hepatosplenomegaly Extremities-mild pitting edema both legs below the knees. Neuro-cranial nerves II through XII intact, motor and sensory function within normal limits, strength symmetrical , no focal deficits Psych-normal affect, normal mood Results & Data Results & Data Vital Signs (Past 12 Hours) Vital Signs Temp Pulse Pulse Resp BP Pulse Ox O2 Del Method 11/24/22 12:38 36.4 C L 86 25 H 104/67 97 Room Air 11/24/22 08:25 121/87 11/24/22 08:24 37.1 C 90 24 144/102 H 96 Room Air 11/24/22 07:21 70 11/24/22 03:23 37.1 C 73 16 111/66 95 Room Air Laboratory Results 11/24/22 05:52 11/24/22 05:52 PG Care Time/CCT Total # of Minutes Spent Total Time Spent with Patient: Total time spent is greater than 50% in coordination of care (as documented) at patient's floor/unit and/or counseling patient: Coding Level of Care Code 41758 SUB INP/OBS CARE 3/50MIN Diagnoses MRSA bacteremia R78.81; B95.62 Epidural abscess G06.2 Bacteremia R78.81 Adrenal insufficiency E27.40 Diarrhea R19.7 Hyponatremia E87.1 Pressure ulcer, back, lower L89.109 Chronic steroid use Spinal stenosis M48.00 Spinal region: unspecified Acute encephalopathy G93.40 HTN (hypertension) I10 Prostate cancer metastatic to bone C61; C79.51 Depression F32.9 DMII (diabetes mellitus, type 2) E11.9 Atrial fibrillation I48.91 IPMN (intraductal papillary mucinous neoplasm) D49.0 (9) Spinal stenosis Spinal region: unspecified Qualified Code(s): M48.00 - Spinal stenosis, site unspecified
[2022-11-24] MEDS: HYDROmorphone INJ 0.5 MG/0.5 ML SYR IV PRN (14:03)
[2022-11-24] MEDS: DAPTOmycin 800 MG in SYRINGE 0 ML IV SCH (16:58)
[2022-11-24] MEDS: LORazepam 1 MG TAB PO PRN (22:09)
[2022-11-25] MEDS: HYDROCODONE/ACETAMOPHEN 5/325MG TAB PO PRN ×3 (06:10→21:02)
[2022-11-25 06:24] LABS: Hematocrit (blood only) 35.4 % (42.0-52.0); Hemoglobin 11.4 g/dl (14.0-18.0); Mean Corpuscular Hemoglobin 30.8 pg (25.0-34.0); Mean Corpuscular Hgb Conc 32.2 g/dL (32.0-36.0); Mean Corpuscular Volume 95.7 fL (80.0-100.0); Mean Platelet Volume 9.1 fL (9.4-12.4); Nucleated RBC # (auto) 0.05 K/uL (0.00-0.12); Nucleated RBC % (auto) 0.4 %; Platelet Count 264 K/uL (130-400); RDW Coefficient of Variation 16.5 % (11.5-14.5); RDW Standard Deviation 57.6 fL (36.4-46.3); White Blood Count 11.51 K/ul (4.8-10.8)
[2022-11-25 06:39] LABS: BUN Creatinine Ratio 17.2 (10-20); Calcium 8.7 mg/dl (8.6-10.3); Creatinine Clr Calc Pharmacy 77.5 ml/min; Est GFR (African American) 90.8 ml/min; Est GFR (Non-African American) 78.4 ml/min; Potassium 4.6 mmol/L (3.5-5.1)
[2022-11-25 07:47] LABS: Basophils # (auto) 0.08 K/uL (0.00-0.20); Basophils % (auto) 0.7 %; Eosinophils # (auto) 0.01 K/uL (0.00-0.50); Eosinophils % (auto) 0.1 %; Immature Granulocytes % (auto) 7.8 %; Lymphocytes # (auto) 1.14 K/uL (1.20-3.40); Lymphocytes % (auto) 9.9 %; Monocytes # (auto) 0.69 K/uL (0.11-0.59); Neutrophils # (auto) 8.69 K/uL (1.40-6.50); Neutrophils % (auto) 75.5 %; Ovalocytes 1+; Polychromasia 1+; Tear Drop Cells 1+
[2022-11-25] MEDS: INSULIN ASPART PER UNIT CHARGE SC SCH ×4 (08:02→21:19)
[2022-11-25] MEDS: ADVANCED PROBIOTIC 1250 MG CAPSULE PO SCH (08:04)
[2022-11-25] MEDS: predniSONE 5 MG TAB PO SCH ×2 (08:04→21:03)
[2022-11-25] MEDS: PANTOprazole 40 MG TAB PO SCH (08:05)
[2022-11-25] MEDS: dilTIAZem HCL 180 MG CAPCR PO SCH (08:06)
[2022-11-25] MEDS: POLYETHYLENE (MIRALAX) 17 GM PACK PO SCH (08:06)
[2022-11-25] MEDS: METOPROLOL SUCC 50MG EXT REL TAB PO SCH (08:07)
[2022-11-25] MEDS: LANTUS PER UNIT CHARGE SQ SCH ×2 (08:08→21:19)
[2022-11-25] MEDS: HYDROmorphone INJ 0.5 MG/0.5 ML SYR IV PRN (08:42)
--- NOTE | 2022-11-25 10:14 | Infectious Disease Progress Nt ---
Date of Service November 25, 2022 Assessment & Plan (1) MRSA bacteremia: (2) Acute encephalopathy: Plan This is a 77 year old male with a pmh of prostate cancer with mets to spine, spinal stenosis s/p lumbar decompression with hardware on 11/04, A fib, DM2,presents with generalized pain and lethargy . He was admitted 10/24-11/12 and dx with covid, LL dvt and underwent lumbar decompression. He returns a few days later with lethargy and back pain. He denied fever, chillls, n/v/ sob, eller, change in urine and bowel habits. In ed noted to be hypotensive and tachycardic. Labs noted for wbc 10.52 bun/cr 16/0.85,procal 0.23. CT head unremarkable. CTA lung w/o PE, = interstitial lung disease w/o pna. CTAB shows postsurgical changes of decompression and fusion of the lower lumbar spine, re-demonstration of a few sclerotic foci most prominently in the sacrum, atrophic right kidney with severe right hydroureteronephrosis ( not new). CT lumbar spine shows interval placement of posterior fixation hardware with expected postsurgical soft tissue swelling and subcutaneous emphysema . A wound noted on his back and was cultured. WCx grew MRSA and BC grew in 1/4 bottles MRSA. EMELYN without vegatations. ID consulted for Mrsa bacteremia and back wound. MICRO BC /06 10/ bottle MRSA (S vanc,dapt, tet) WC 11/14 MRSA BC 11/16 NGTD OR epidural abscess 11/20; g/s GPC, culture MRSA (S vanc,dapt, tet) Abx zosyn 11/14-11/15 Dapto 11/14- ongoing #MRSA Bacteremia, cleared 11/16 #MRSA post op surgical wound #MRSA spinal abscess s/p lumbar decompression and hardware ( 11/04/22) with further I+D 11/20 #Lumbar fixation hardware in place MRSA bacteremia is likely 2/2 post op MRSA wound surgical wound . Wound is at prior drain site. there is some dried drainage at site on my initial exam on 11/19. Incision with tiny opening but dry. . TTE is negative for vegetation ,+ AV sclerosis. CTt spine with contast - lumbar shows shows posterior fixation hardware with postsurgical soft tissue swelling and subcutaneous emphysema. A soft tissue US showed a small subincisional debris-containing fluid collection which measures 1.3 x 0.6 x 0.6 cm: could be a post op complex seroma or hematoma or small abscess. MRI showed a 4.8 x 11.5 x 4.5 cm laminectomy bed fluid collection adjacent to the hardware with significant mass effect upon the thecal sac and results in moderate to severe central canal stenosis. There is also multiloculated subdural collections within the lower thoracic and upper lumbar canals and increased fluid signal within the L3-L4 and L4-L5 disc spaces ( postsurgical vs Discitis) could appear similar. However, an adjacent endplates are intact without evidence for acute osteomyelitis Also found to have non specific edema within the b/l psoas He underwent I +D of Abscess in epidural space of L2-L5 on 11/20. OP report reviewed: significant sanguineous purulent fluid identified. The lumbar spine incision was debrided of any necrotic looking tissue. Vancomycin and gentamicin beads placed throughout the epidural space and gutters. Abscess cx G/S + GPC , Cx MRSA ( prelim) Recs- Continue IV Dapto 8 mg/kg iv daily, will plan for 6 weeks from last OR debridement through 01/01/23 Since he has retained hardware he will this should be followed by oral suppression with Doxycycline 100mg po BID at least 1 year after, ideally for life of retained hardware if tolerating well (take with food, use SPF if in sun >15min and avoid ca/mg products within 2 hours prior and after antibiotic) Weekly CBC with diff, CMP, CPK levels to his primary care while he is on IV antibiotics Strongly recommend ID community follow up given duration of antibiotics PICC line today D/W Dr. Parish recommendations ID will s/o, thank you for this consult Aubree Juárez MD Infectious Disease Admission and Anticipated Discharge Date Admission Date: November 14, 2022 Subjective This patient recommendation is based on a telemedicine consult request which was completed asynchronously through chart review and information provided by the primary physician. The patient was not seen or examined today. The evaluation is consultative in nature and all patient care and treatment decisions can either be accepted or rejected by the patient's primary hospital-based treating physician using their own independent medical judgment for their patient. Time Spent Reviewing Chart: 31+ minutes Results & Data Vital Signs (Past 12 Hours) Vital Signs Temp Pulse Resp BP BP Pulse Ox O2 Del Method 11/25/22 07:52 36.5 C 82 27 H 120/70 95 Room Air 11/25/22 02:29 36.5 C 83 16 125/78 96 Room Air 11/24/22 22:57 36.6 C 80 20 124/88 91 Room Air Laboratory Results Laboratory Results - last 48 hr 11/23/22 11/23/22 11/23/22 11:26 16:30 20:20 WBC RBC Hgb Hct MCV MCH MCHC RDW Std Deviation RDW Coeff of Tramaine Plt Count MPV Immature Gran % (Auto) Neut % (Auto) Lymph % (Auto) Pepin % (Auto) Eos % (Auto) Baso % (Auto) Neut # (Auto) Lymph # (Auto) Pepin # (Auto) Eos # (Auto) Baso # (Auto) Immature Gran # (Auto) Absolute Nucleated RBC Nucleated RBC % (auto) Polychromasia Tear Drop Cells Ovalocytes Sodium Potassium Chloride Carbon Dioxide Anion Gap BUN Creatinine Est Cr Clr Drug Dosing Est GFR ( Amer) Est GFR (Non-Af Amer) BUN/Creatinine Ratio Glucose POC Glucose 263 H 182 H 148 H Calcium 11/24/22 11/24/22 11/24/22 05:52 05:52 07:28 WBC 12.40 H RBC 3.66 L Hgb 11.3 L Hct 35.1 L MCV 95.9 MCH 30.9 MCHC 32.2 RDW Std Deviation 57.6 H RDW Coeff of Tramaine 16.7 H Plt Count 278 MPV 9.5 Immature Gran % (Auto) 9.5 Neut % (Auto) 75.7 Lymph % (Auto) 8.4 Pepin % (Auto) 5.8 Eos % (Auto) 0.0 Baso % (Auto) 0.6 Neut # (Auto) 9.39 H Lymph # (Auto) 1.04 L Pepin # (Auto) 0.72 H Eos # (Auto) 0.00 Baso # (Auto) 0.07 Immature Gran # (Auto) 1.18 H Absolute Nucleated RBC 0.08 Nucleated RBC % (auto) 0.6 Polychromasia 1+ Tear Drop Cells 1+ Ovalocytes Sodium 135 L Potassium 4.8 Chloride 99 Carbon Dioxide 30 Anion Gap 6 BUN 18 Creatinine 0.82 Est Cr Clr Drug Dosing 87.1 Est GFR ( Amer) 98.2 Est GFR (Non-Af Amer) 84.7 BUN/Creatinine Ratio 22.0 H Glucose 159 H POC Glucose 134 H Calcium 8.6 11/24/22 11/24/22 11/24/22 11:06 16:23 20:30 WBC RBC Hgb Hct MCV MCH MCHC RDW Std Deviation RDW Coeff of Tramaine Plt Count MPV Immature Gran % (Auto) Neut % (Auto) Lymph % (Auto) Pepin % (Auto) Eos % (Auto) Baso % (Auto) Neut # (Auto) Lymph # (Auto) Pepin # (Auto) Eos # (Auto) Baso # (Auto) Immature Gran # (Auto) Absolute Nucleated RBC Nucleated RBC % (auto) Polychromasia Tear Drop Cells Ovalocytes Sodium Potassium Chloride Carbon Dioxide Anion Gap BUN Creatinine Est Cr Clr Drug Dosing Est GFR ( Amer) Est GFR (Non-Af Amer) BUN/Creatinine Ratio Glucose POC Glucose 162 H 125 H 134 H Calcium 11/25/22 11/25/22 11/25/22 06:03 06:03 07:09 WBC 11.51 H RBC 3.70 L Hgb 11.4 L Hct 35.4 L MCV 95.7 MCH 30.8 MCHC 32.2 RDW Std Deviation 57.6 H RDW Coeff of Tramaine 16.5 H Plt Count 264 MPV 9.1 L Immature Gran % (Auto) 7.8 Neut % (Auto) 75.5 Lymph % (Auto) 9.9 Pepin % (Auto) 6.0 Eos % (Auto) 0.1 Baso % (Auto) 0.7 Neut # (Auto) 8.69 H Lymph # (Auto) 1.14 L Pepin # (Auto) 0.69 H Eos # (Auto) 0.01 Baso # (Auto) 0.08 Immature Gran # (Auto) 0.90 H Absolute Nucleated RBC 0.05 Nucleated RBC % (auto) 0.4 Polychromasia 1+ Tear Drop Cells 1+ Ovalocytes 1+ Sodium 133 L Potassium 4.6 Chloride 97 L Carbon Dioxide 29 Anion Gap 7 BUN 16 Creatinine 0.93 Est Cr Clr Drug Dosing 77.5 Est GFR ( Amer) 90.8 Est GFR (Non-Af Amer) 78.4 BUN/Creatinine Ratio 17.2 Glucose 146 H POC Glucose 154 H Calcium 8.7
[2022-11-25] MEDS: ABIRATERONE ACETATE PO SCH (10:22)
[2022-11-25] MEDS: ONDANSETRON INJ 2 MG/ML 2 ML VIAL IV PRN (12:50)
--- NOTE | 2022-11-25 14:45 | Hospitalist Progress Note ---
Date of Service November 25, 2022 Assessment & Plan (1) MRSA bacteremia: Plan: Currently on intravenous daptomycin. Infectious disease consultation and recommendations appreciated. He will require intravenous daptomycin for 6 weeks. PICC line placement has been requested. TTE negative for valvular vegetations. Blood cultures obtained on November 16 remain negative to date. MRI L-spine 11/19 results noted. (2) Epidural abscess: Plan: Extensive abnormality documented on lumbar spine MRI scan completed November 19. Subsequent incision and drainage procedure completed November 20. (3) Bacteremia: Plan: MRSA isolated. He is now on intravenous daptomycin. Infectious disease consultation and recommendations appreciated. He will require daptomycin intravenously for 6 weeks through January 01.. PICC line insertion hopefully today, November 25 (4) Adrenal insufficiency: Plan: Parenteral steroids have been converted to his usual oral prednisone dose on November 23. Stable overall (5) Diarrhea: Plan: C. diff negative. Resolved (6) Hyponatremia: Plan: Probably related to fluid overload. Resolved. Serial labs (7) Pressure ulcer, back, lower: Plan: Stage III. Local care. (8) Chronic steroid use: Plan: IV hydrocortisone has been switched back to his usual oral prednisone dose. (9) Spinal stenosis: Plan: S/p lumbar decompression, fusion with Dr. Velazco on 11/04/2022. Lumbar spine CT on 11/14 showed expected postsurgical soft tissue swelling/no acute fractures. MRI L-spine with severe stenosis from mass effect from abscess as above. Discontinued tramadol due to hallucinations. Pain is currently controlled with acetaminophen and Vicodin. (10) Acute encephalopathy: Plan: Acute combined metabolic and toxic encephalopathy present on admission due to baclofen and oxycodone administration along with sepsis and bacteremia. Now resolved. These medications have been discontinued. Supportive care (11) HTN (hypertension): Plan: Hypotensive on admission secondary to adrenal insufficiency in setting of infection. Resolved with IV hydrocortisone and now switched back to usual oral prednisone dose. Continue metoprolol. Diltiazem has been added and is working well for atrial fib ventricular rate control. Amlodipine and lisinopril have been discontinued (12) Prostate cancer metastatic to bone: Plan: Stage IV with bone mets. Continue Zytiga . Follows with Dr. Liriano for Oncology (13) Depression: Plan: Suicidal ideations have been ruled out. Continue sertraline (14) DMII (diabetes mellitus, type 2): Plan: Hyperglycemia developed while on parenteral steroids. Now resolved. (15) Atrial fibrillation: Plan: Diltiazem has been added to metoprolol for better rate control. Amlodipine was previously discontinued. Not on AC due to h/o bleeding with prostate CA. Telemetry (16) IPMN (intraductal papillary mucinous neoplasm): Plan: noted on CT abd/pel. Continue outpatient oncology management Plan [facility] with [facility] line and continued intravenous daptomycin this Friday Admission and Anticipated Discharge Date Admission Date: November 14, 2022 Subjective Alert and oriented. No distress. PICC line will be placed today hopefully, November 26. Case management entry noted. [facility] can accept him on Friday of this week. Heart rate and blood pressure are controlled. Glucose acceptable. He remains on intravenous daptomycin through January 01. Appreciate infectious disease entry and recommendations Review of Systems Review of Systems: Constitutional-no fever or chills ENT-no blurred vision, no double vision, no epistaxis, no sore throat Respiratory-no cough, no wheezing, no shortness of breath Cardiac-no palpitations, no chest pain, no syncope GI-no nausea, vomiting, diarrhea, melena, hematochezia -no urinary retention, no urinary incontinence, no dysuria, no hematuria Musculoskeletal-postoperative low back discomfort as expected . No joint pain, no muscle tenderness Skin-no bruising, no rashes, no pruritus Neuro-no isolated weakness, no paresthesia, no weakness Psych-no depression, no anxiety Physical Exam Physical Exam: General-alert and oriented x3, no fevers, no chills HEENT-head atraumatic and normocephalic, pupils equal and reactive to light, extraocular muscles intact Neck-no lymphadenopathy or thyromegaly, trachea midline Chest-clear to auscultation percussion. No rales wheezing or rhonchi Cardiac-irregular rhythm with rapid rate. Normal S1 and S2 Abdomen-normal bowel sounds, nontender, no hepatosplenomegaly Extremities-mild pitting edema both legs below the knees. Neuro-cranial nerves II through XII intact, motor and sensory function within normal limits, strength symmetrical , no focal deficits Psych-normal affect, normal mood Results & Data Results & Data Vital Signs (Past 12 Hours) Vital Signs Temp Pulse Resp BP Pulse Ox O2 Del Method 11/25/22 11:51 36.5 C 76 17 101/72 92 Room Air 11/25/22 07:52 36.5 C 82 27 H 120/70 95 Room Air Laboratory Results 11/25/22 06:03 11/25/22 06:03 PG Care Time/CCT Total # of Minutes Spent Total Time Spent with Patient: Total time spent is greater than 50% in coordination of care (as documented) at patient's floor/unit and/or counseling patient: Coding Level of Care Code 87761 SUB INP/OBS CARE 3/50MIN Diagnoses MRSA bacteremia R78.81; B95.62 Epidural abscess G06.2 Bacteremia R78.81 Adrenal insufficiency E27.40 Diarrhea R19.7 Hyponatremia E87.1 Pressure ulcer, back, lower L89.109 Chronic steroid use Spinal stenosis M48.00 Spinal region: unspecified Acute encephalopathy G93.40 HTN (hypertension) I10 Prostate cancer metastatic to bone C61; C79.51 Depression F32.9 DMII (diabetes mellitus, type 2) E11.9 Atrial fibrillation I48.91 IPMN (intraductal papillary mucinous neoplasm) D49.0 (9) Spinal stenosis Spinal region: unspecified Qualified Code(s): M48.00 - Spinal stenosis, site unspecified
[2022-11-25] MEDS: DAPTOmycin 800 MG in SYRINGE 0 ML IV SCH (16:08)
[2022-11-25] MEDS: SODIUM CHLORIDE 0.9% 1,000 ML IV SCH (22:09)
[2022-11-26] MEDS: LORazepam 1 MG TAB PO PRN (00:17)
[2022-11-26] MEDS ORDERED: SODIUM CHLORIDE 0.9% 1,000 ML IV SCH (07:45)
[2022-11-26] MEDS: LANTUS PER UNIT CHARGE SQ SCH ×2 (08:30→20:43)
[2022-11-26] MEDS: INSULIN ASPART PER UNIT CHARGE SC SCH ×4 (08:30→20:43)
[2022-11-26] MEDS: dilTIAZem HCL 180 MG CAPCR PO SCH (08:32)
[2022-11-26] MEDS: ADVANCED PROBIOTIC 1250 MG CAPSULE PO SCH (08:33)
[2022-11-26] MEDS: METOPROLOL SUCC 50MG EXT REL TAB PO SCH (08:33)
[2022-11-26] MEDS: PANTOprazole 40 MG TAB PO SCH (08:34)
[2022-11-26] MEDS: predniSONE 5 MG TAB PO SCH ×2 (08:35→20:44)
[2022-11-26] MEDS: POLYETHYLENE (MIRALAX) 17 GM PACK PO SCH (08:35)
--- NOTE | 2022-11-26 09:16 | Orthopedic Progress Note ---
Date of Service November 26, 2022 Assessment & Plan (1) 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: Plan: We will maintain the MATTHEW drains at this time. Have continued to encourage him to work with PT with standing and hopefully transfers to chair. Admission and Anticipated Discharge Date Admission Date: November 14, 2022 Subjective Back pain controlled leg symptoms improved. He tolerated therapy yesterday. Physical Exam Physical Exam: Patient sitting up in bed. Appears comfortable. Strength intact lower extremities. MATTHEW drains are functioning. Results & Data Vital Signs (Past 12 Hours) Vital Signs Temp Pulse Pulse Resp BP Pulse Ox O2 Del Method 11/26/22 07:49 37.0 C 87 20 125/80 98 Room Air 11/26/22 02:58 36.6 C 75 18 99/71 L 95 Room Air 11/25/22 22:00 80 11/25/22 23:23 36.6 C 79 18 99/63 L 92 Room Air
[2022-11-26] MEDS: SODIUM CHLORIDE 0.9% 1,000 ML IV SCH (09:51)
[2022-11-26] MEDS: ABIRATERONE ACETATE PO SCH (10:01)
[2022-11-26] MEDS: HYDROCODONE/ACETAMOPHEN 5/325MG TAB PO PRN ×3 (11:01→23:04)
[2022-11-26] MEDS: HYDROmorphone INJ 0.5 MG/0.5 ML SYR IV PRN (13:33)
[2022-11-26] MEDS: DAPTOmycin 800 MG in SYRINGE 0 ML IV SCH (15:57)
--- NOTE | 2022-11-26 16:33 | Hospitalist Progress Note ---
Date of Service November 26, 2022 Assessment & Plan (1) MRSA bacteremia: Plan: Currently on intravenous daptomycin. Infectious disease consultation and recommendations appreciated. He will require intravenous daptomycin for 6 weeks. PICC line placement attempt failed on November 25. He will have a midline placed today, November 26. TTE negative for valvular vegetations. Blood cultures obtained on November 16 remain negative to date. MRI L-spine 11/19 results noted. (2) Epidural abscess: Plan: Extensive abnormality documented on lumbar spine MRI scan completed November 19. Subsequent incision and drainage procedure completed November 20. (3) Bacteremia: Plan: MRSA isolated. He is now on intravenous daptomycin. Infectious disease consultation and recommendations appreciated. He will require daptomycin intravenously for 6 weeks through January 01. Midline IV insertion today, November 26. (4) Adrenal insufficiency: Plan: Parenteral steroids have been converted to his usual oral prednisone dose on November 23. Stable overall (5) Diarrhea: Plan: C. diff negative. Resolved (6) Hyponatremia: Plan: Probably related to fluid overload. Resolved. Serial labs (7) Pressure ulcer, back, lower: Plan: Stage III. Local care. (8) Chronic steroid use: Plan: IV hydrocortisone has been switched back to his usual oral prednisone dose. (9) Spinal stenosis: Plan: S/p lumbar decompression, fusion with Dr. Velazco on 11/04/2022. Lumbar spine CT on 11/14 showed expected postsurgical soft tissue swelling/no acute fractures. MRI L-spine with severe stenosis from mass effect from abscess as above. Discontinued tramadol due to hallucinations. Pain is currently controlled with acetaminophen and Vicodin. (10) Acute encephalopathy: Plan: Acute combined metabolic and toxic encephalopathy present on admission due to baclofen and oxycodone administration along with sepsis and bacteremia. Now resolved. These medications have been discontinued. Supportive care (11) HTN (hypertension): Plan: Hypotensive on admission secondary to adrenal insufficiency in setting of infection. Resolved with IV hydrocortisone and now switched back to usual oral prednisone dose. Continue metoprolol. Diltiazem has been added and is working well for atrial fib ventricular rate control. Amlodipine and lisinopril have been discontinued (12) Prostate cancer metastatic to bone: Plan: Stage IV with bone mets. Continue Zytiga . Follows with Dr. Liriano for Oncology (13) Depression: Plan: Suicidal ideations have been ruled out. Continue sertraline (14) DMII (diabetes mellitus, type 2): Plan: Hyperglycemia developed while on parenteral steroids. Now resolved. (15) Atrial fibrillation: Plan: Diltiazem has been added to metoprolol for better rate control. Amlodipine was previously discontinued. Not on AC due to h/o bleeding with prostate CA. Telemetry (16) IPMN (intraductal papillary mucinous neoplasm): Plan: noted on CT abd/pel. Continue outpatient oncology management Plan Hopeful discharge to [facility] tomorrow, November 27 Admission and Anticipated Discharge Date Admission Date: November 14, 2022 Subjective Alert and oriented. No new problems. PICC line could not be placed yesterday for technical reasons. Midline will be placed today, November 26. Hopeful discharge to [facility] tomorrow, November 27. Heart rate and blood pressure remain acceptable on metoprolol and diltiazem Review of Systems Review of Systems: Constitutional-no fever or chills ENT-no blurred vision, no double vision, no epistaxis, no sore throat Respiratory-no cough, no wheezing, no shortness of breath Cardiac-no palpitations, no chest pain, no syncope GI-no nausea, vomiting, diarrhea, melena, hematochezia -no urinary retention, no urinary incontinence, no dysuria, no hematuria Musculoskeletal-postoperative low back discomfort as expected . No joint pain, no muscle tenderness Skin-no bruising, no rashes, no pruritus Neuro-no isolated weakness, no paresthesia, no weakness Psych-no depression, no anxiety Physical Exam Physical Exam: General-alert and oriented x3, no fevers, no chills HEENT-head atraumatic and normocephalic, pupils equal and reactive to light, extraocular muscles intact Neck-no lymphadenopathy or thyromegaly, trachea midline Chest-clear to auscultation percussion. No rales wheezing or rhonchi Cardiac-irregular rhythm with rapid rate. Normal S1 and S2 Abdomen-normal bowel sounds, nontender, no hepatosplenomegaly Extremities-mild pitting edema both legs below the knees. Neuro-cranial nerves II through XII intact, motor and sensory function within normal limits, strength symmetrical , no focal deficits Psych-normal affect, normal mood Results & Data Results & Data Vital Signs (Past 12 Hours) Vital Signs Temp Pulse Pulse Resp BP Pulse Ox O2 Del Method 11/26/22 15:43 67 11/26/22 13:57 78 11/26/22 11:45 36.9 C 84 18 129/85 94 Room Air 11/26/22 07:49 37.0 C 87 20 125/80 98 Room Air Laboratory Results 11/25/22 06:03 11/25/22 06:03 PG Care Time/CCT Total # of Minutes Spent Total Time Spent with Patient: Total time spent is greater than 50% in coordination of care (as documented) at patient's floor/unit and/or counseling patient: Coding Level of Care Code 09010 SUB INP/OBS CARE 3/50MIN Diagnoses MRSA bacteremia R78.81; B95.62 Epidural abscess G06.2 Bacteremia R78.81 Adrenal insufficiency E27.40 Diarrhea R19.7 Hyponatremia E87.1 Pressure ulcer, back, lower L89.109 Chronic steroid use Spinal stenosis M48.00 Spinal region: unspecified Acute encephalopathy G93.40 HTN (hypertension) I10 Prostate cancer metastatic to bone C61; C79.51 Depression F32.9 DMII (diabetes mellitus, type 2) E11.9 Atrial fibrillation I48.91 IPMN (intraductal papillary mucinous neoplasm) D49.0 (9) Spinal stenosis Spinal region: unspecified Qualified Code(s): M48.00 - Spinal stenosis, site unspecified
[2022-11-27 06:58] LABS: Hematocrit (blood only) 33.2 % (42.0-52.0); Hemoglobin 10.8 g/dl (14.0-18.0); Mean Corpuscular Hemoglobin 30.9 pg (25.0-34.0); Mean Corpuscular Hgb Conc 32.5 g/dL (32.0-36.0); Mean Corpuscular Volume 94.9 fL (80.0-100.0); Mean Platelet Volume 9.6 fL (9.4-12.4); Platelet Count 212 K/uL (130-400); RDW Coefficient of Variation 15.8 % (11.5-14.5); RDW Standard Deviation 54.9 fL (36.4-46.3); White Blood Count 8.05 K/ul (4.8-10.8)
[2022-11-27 07:15] LABS: BUN Creatinine Ratio 16.3 (10-20); Creatinine Clr Calc Pharmacy 83.2 ml/min; Est GFR (African American) 96.3 ml/min; Est GFR (Non-African American) 83.1 ml/min; Potassium 4.2 mmol/L (3.5-5.1)
[2022-11-27 07:19] VITALS: O2SAT 98
[2022-11-27 07:23] LABS: Basophils # (auto) 0.06 K/uL (0.00-0.20); Basophils % (auto) 0.7 %; Echinocytes 1+; Eosinophils # (auto) 0.03 K/uL (0.00-0.50); Eosinophils % (auto) 0.4 %; Immature Granulocytes % (auto) 6.2 %; Lymphocytes # (auto) 1.02 K/uL (1.20-3.40); Lymphocytes % (auto) 12.7 %; Monocytes # (auto) 0.54 K/uL (0.11-0.59); Monocytes % (auto) 6.7 %; Neutrophils % (auto) 73.3 %
[2022-11-27] MEDS: HYDROCODONE/ACETAMOPHEN 5/325MG TAB PO PRN (07:54)
[2022-11-27] MEDS: dilTIAZem HCL 180 MG CAPCR PO SCH (08:01)
[2022-11-27] MEDS: PANTOprazole 40 MG TAB PO SCH (08:01)
[2022-11-27] MEDS: POLYETHYLENE (MIRALAX) 17 GM PACK PO SCH (08:01)
[2022-11-27] MEDS: predniSONE 5 MG TAB PO SCH (08:01)
[2022-11-27] MEDS: METOPROLOL SUCC 50MG EXT REL TAB PO SCH (08:01)
[2022-11-27] MEDS: ADVANCED PROBIOTIC 1250 MG CAPSULE PO SCH (08:01)
[2022-11-27] MEDS: LANTUS PER UNIT CHARGE SQ SCH (08:02)
[2022-11-27] MEDS: INSULIN ASPART PER UNIT CHARGE SC SCH ×2 (08:02→12:17)
--- NOTE | 2022-11-27 09:03 | Orthopedic Progress Note ---
Date of Service November 27, 2022 Assessment & Plan (1) Epidural abscess: Plan: Willard is postoperative day 7 status post I&D lumbar spine secondary to epidural abscess. He is on 6 weeks of IV Dapto and then will transition to oral suppression. He is being [facility]. I will DC MATTHEW drains prior to discharge. He will follow-up in our office in 2 weeks. Ambulate ad scott. No lifting over 5 pounds. Admission and Anticipated Discharge Date Admission Date: November 14, 2022 Subjective Willard is postoperative day 7 status post I&D secondary to infection. Cultures are growing out MRSA. he has a PICC line placed yesterday and is on IV daptomycin for 6 weeks then most likely will need oral suppression due to retained hardware. He feels good. He is anxious to start ambulating. He is going to be discharged to [facility] today. MATTHEW drain output #1 last shift was 20 cc. MATTHEW drain #2 output was 30 cc last shift. Review of Systems Review of Systems: All systems reviewed & are unremarkable except as noted in HPI & below Physical Exam Physical Exam: He is alert and oriented x3 No acute distress Still has weakness in the left greater than right lower extremity that is unchanged Calf soft and nontender bilaterally Results & Data Vital Signs (Past 12 Hours) Vital Signs Temp Pulse Pulse Resp BP Pulse Ox O2 Del Method 11/27/22 07:18 36.6 C 76 19 127/84 98 Room Air 11/27/22 02:44 36.9 C 83 20 123/68 94 Room Air 11/26/22 23:00 92 H 11/26/22 23:16 37 C 88 20 128/68 92 Room Air
[2022-11-27] MEDS: ABIRATERONE ACETATE PO SCH (10:33)
[2022-11-27 11:19] VITALS: BP 112/75; PULSE 82; RESP 18; TEMP 98.2
--- NOTE | 2022-11-27 12:37 | Discharge Summary ---
Date of Service November 27, 2022 Admission HPI Per Admitting Provider Willard Walker is a 77-year-old male with PMH of prostate cancer with mets to spine, spinal stenosis s/p lumbar decompression on 11/04, HTN, anxiety, T2DM, atrial fibrillation, and depression. He presents from [facility] for AMS and severe generalized pain x2 days after recent discharge from [facility] on 11/12. [facility] hospital course: 10/24-11/12 for COVID, LLE DVT, visual hallucinations (possibly secondary to COVID), spinal stenosis, and generalized weakness. Still COVID+; placed on isolation precautions. Called [facility] and spoke on the phone with RN tunnel heading supervisor (Maricarmen): Per nursing staff, the patient arrived Saturday 11/11 and was somewhat alert and oriented, but became increasingly lethargic and somnolent that night. Since then, he has been lethargic and only waking to speak in one-word sentences. Not responding to pain scale, but endorsing severe back pain. No fevers noted at the group home. Ulcer noted on back; swabbed for culture. Pain medications were not held due to lethargy (as previously noted). Patient received baclofen 10 mg 3 times daily with last dose at 1230 on 11/14; oxycodone 10 mg twice daily + 5 mg for breakthrough pain, with last dose given 1200 on 11/14. Per called over the phone. He reports Willard never had this kind of pain while he was in hospital - this is more generalized. Started whenever he went to [facility] and suspect initially just from the ambulance drive but he was somnolent even when he got to [facility] initially. He would complain of generalized pain but also getting more confused. No fever or chills. In the ED, patient remains somnolent/lethargic and difficult to wake. Stat ABGs and ammonia ordered. Per nurse, he expressed suicidal ideations, saying he "wanted to " secondary to his pain while he was being taken to the CT scanner. Principal Diagnosis MRSA bacteremia, epidural abscess after lumbar surgery November 02 Discharge Exam General-alert and oriented x3, no fevers, no chills HEENT-head atraumatic and normocephalic, pupils equal and reactive to light, extraocular muscles intact Neck-no lymphadenopathy or thyromegaly, trachea midline Chest-clear to auscultation percussion. No rales wheezing or rhonchi Cardiac-irregular rhythm with rapid rate. Normal S1 and S2 Abdomen-normal bowel sounds, nontender, no hepatosplenomegaly Extremities-mild pitting edema both legs below the knees. Neuro-cranial nerves II through XII intact, motor and sensory function within normal limits, strength symmetrical , no focal deficits Psych-normal affect, normal mood Discharge Data Allergies Allergy/AdvReac Type Severity Reaction Status Date / Time cat dander Allergy Severe CAN CAUSE Verified 09/24/22 00:30 ASTHMA ATTACK-itchy eyes, congestion gabapentin AdvReac Intermediate Hallucinati Verified 11/16/22 12:42 ng tramadol AdvReac Intermediate Hallucinati Verified 11/16/22 12:42 ng Consultations 11/14/22 18:02 ED Decision to Admit Stat 11/15/22 06:39 Consult Orthopedic Surgery Routine 11/15/22 11:51 Consult Orthopedic Surgery Routine 11/16/22 08:59 Consult Infectious Diseases Routine Procedures Performed Operation Date: 11/20/22 09:10 Actual Procedures p Incision and Drainage Lumbar Spine(Not Applicable) - Benedict Velazco DO Ordered Studies 11/14/22 14:24 CT angio chest PE protocol Stat CT head/brain wo con Stat 11/14/22 14:28 CT abd pelvis IV con only Stat CT cervical spine wo con Stat CT lumbar spine w con Stat CT thoracic spine w con Stat 11/19/22 07:49 MR lumbar spine wo con Routine 11/19/22 07:56 US softtissue abdwall/lwr back Routine Hospital Course (1) MRSA bacteremia: Treated while hospitalized with intravenous daptomycin. Infectious disease consultation and recommendations appreciated. He will require intravenous daptomycin for 6 weeks. PICC line placement attempt failed on November 25. He had a midline placed on November 26. TTE negative for valvular vegetations. Blood cultures obtained on November 16 remain negative to date. MRI L-spine 11/19 results noted. (2) Epidural abscess: Extensive abnormality documented on lumbar spine MRI scan completed November 19. Subsequent incision and drainage procedure completed November 20. (3) Bacteremia: MRSA isolated. He is now on intravenous daptomycin. Infectious disease consultation and recommendations appreciated. He will require daptomycin intravenously for 6 weeks through January 01. Midline IV insertion completed on November 26. (4) Adrenal insufficiency: Parenteral steroids have been converted to his usual oral prednisone dose on November 23. Stable overall (5) Diarrhea: C. diff negative. Resolved (6) Hyponatremia: Probably related to fluid overload. Resolved. Serial labs (7) Pressure ulcer, back, lower: Stage III. Local care. (8) Chronic steroid use: IV hydrocortisone has been switched back to his usual oral prednisone dose. (9) Spinal stenosis: S/p lumbar decompression, fusion with Dr. Velazco on 11/04/2022. Lumbar spine CT on 11/14 showed expected postsurgical soft tissue swelling/no acute fractures. MRI L-spine with severe stenosis from mass effect from abscess as above. Discontinued tramadol due to hallucinations. Pain is currently controlled with acetaminophen and Vicodin. (10) Acute encephalopathy: Acute combined metabolic and toxic encephalopathy present on admission due to baclofen and oxycodone administration along with sepsis and bacteremia. Now resolved. These medications have been discontinued. Supportive care (11) HTN (hypertension): Hypotensive on admission secondary to adrenal insufficiency in setting of infection. Resolved with IV hydrocortisone and now switched back to usual oral prednisone dose. Continue metoprolol. Diltiazem has been added and is working well for atrial fib ventricular rate control. Amlodipine and lisinopril have been discontinued (12) Prostate cancer metastatic to bone: Stage IV with bone mets. Continue Zytiga . Follows with Dr. Liriano for Oncology (13) Depression: Suicidal ideations have been ruled out. Continue sertraline (14) DMII (diabetes mellitus, type 2): Hyperglycemia developed while on parenteral steroids. Now resolved. (15) Atrial fibrillation: Diltiazem has been added to metoprolol for better rate control. Amlodipine was previously discontinued. Not on AC due to h/o bleeding with prostate CA. Telemetry (16) IPMN (intraductal papillary mucinous neoplasm): noted on CT abd/pel. Continue outpatient oncology management Plan Discharge to Center care today, November 27 Total Time Total Time Spent Total Time Spent (In Minutes): 45-minute Discharge Plan Discharge Items Patient Disposition: Transfer [facility] Reason For Visit: ALTERED MENTAL STATUS, BACK PAIN Discharge Diagnosis: MRSA bacteremia, MRSA staph epidural abscess after lumbar back surgery Activity: Per Instructions section Lifting: No more than 5 pounds Bathing Comment: shower 11/27 Exercise/Sports: None Weightbearing: Full weightbearing Non-emergency contact: Primary Care Provider Call non-emergency contact if: your symptoms worsen Follow-up/Referrals: Kings iRos, [Primary Care Provider] - Diet: Carb Consistent or DM2 and Heart Healthy Addtl Attending Provider Instructions: ACTIVITY RECOMMENDATIONS: SELF CARE INSTRUCTIONS AFTER THORACIC/LUMBAR FUSIONS 1. You may walk to your tolerance. It is good exercise for your legs and back. Expect some back and intermittent leg aches and pains. 2. You may perform "counter-top" level activities (make a sandwich, bonnie with a project, etc.). 3. No bending or lifting of more than 10 pounds or back twisting of any nature (roll like a log when turning in bed). 4. You may ride in a car for 20-30 minutes at a time. No driving until after your first visit with your doctor. 5. Frequent changes of position and restricting sitting to 30 minutes at a time will help limit the amount of back spasms and stiffness you may experience. 6. You may discontinue the use of ambulatory aids (cane, crutches, etc.) once your strength and confidence allow. 7. You may steel floor pan placing supervisor the shower and let water strike your incision when you arrive home at least once daily. Do not take a tub bath, sit in a hot tub or go into a swimming pool until after your first recheck in the office. SPECIAL CARE INSTRUCTIONS: VERY IMPORTANT TO READ AND REVIEW A. Your surgical incision has been closed with a cosmetic suture under the skin that will dissolve in about 6 weeks. In 14 days, you can use a pair of clean scissors and cut the suture that is left outside of the skin at the ends of your incision. 1. The small skin tapes can be removed 7 days after surgery if they have not fallen off by that point. 2. You may keep the wound open to air as much as possible to promote healing after post-op day number 5 unless told otherwise by your doctor. 3. If you think the wound looks like it is becoming infected (redness or worsening drainage) and/or you are experiencing fever, chill or worsening back pain and muscle spasms, contact the office so that we may evaluate you as soon as possible. B. Complications are uncommon, but please contact us if you have any signs or symptoms of: 1. wound infection (fever higher than 102.5 degrees F, redness, separation of wound, drainage, or increasing pain from the incision) 2. blood clots in legs (pain, swelling, redness and warmth in legs) 3. urinary tract infection (fever higher than 102.5 degrees F, burning upon urination or increased frequency of urination) 4. nerve problems (inability to walk on your toes or heels, numbness, loss of bowel or bladder control) 5. any other symptoms that concern you C. Please call the office at if you have any concerns or questions about your operation or recovery. D. No smoking! Smoking drastically decreases the chance of a solid fusion. E. Do not take any anti-inflammatory medications (Indocin, Advil, Motrin, Aspirin, Naprosyn, etc.) as these may inhibit the chance of a solid fusion. Tylenol is okay to take for pain. MANAGING PAIN AFTER SPINAL SURGERY 1. Narcotic medication is intended for short-term use and will be provided for surgical pain. Surgical pain usually lasts for a period of 4-6 weeks. Narcotic medication includes Percocet, Vicodin, Darvocet, Tylenol #3 or Lortab. 2. Longer-term pain is more appropriately treated with non-narcotic medication such as Tylenol ES. 3. Muscle spasm is not appropriately treated with narcotics. Muscle relaxers such as Soma, Flexeril or Skelaxin can be used along with Tylenol ES. 4. Remember that we all live with some "aches and pains". This is not unusual or uncommon after an injury or as we get older. a. Back pain is expected and may include muscle spasms for 4 to 6 weeks after surgery. The pain should gradually improve. If the pain worsens for no apparent reason, please contact the office. b. Intermittent leg pain may also be experienced and should not be concerned about unless it worsens for no apparent reason. If so, please contact the office. 5. We will provide appropriate medication within the normal guidelines of their prescribed use. We will also be very cautious and aware of potential abuse and extended duration of patients' medication needs. a. Pain medications are for your comfort and to assist with sleep and rest so that the tissue can heal. They are not provided in order to return to normal activity and should not be used through the day. To do so or worsening pain at night can result from ongoing tissue damage and development of tolerance to the prescribed medicine. 6. Please allow 2-3 days to process refills. Prescriptions will not be mailed but must be picked up at the office. FOLLOW UP VISIT: Keep your scheduled follow-up appointment. Any questions, please call the office at . Addtl Software Program Manager Provider Instructions: D/C jamarcus lumbar spine on 12/04 Pending Studies at Discharge: No Stand-Alone Forms: [facility] Skilled Items Patient informed of condition?: Yes DNR: Yes Discharge Level of Care: Skilled Communicable Disease: No Discharge Prognosis: Stable Lines: Mid-Line Urinary Catheter: Yes Medications and DC Order Prescriptions: New prednisone 5 mg Tablet 5 mg PO BID Qty: 7 0RF metoprolol succinate 50 mg Tablet Extended Release 24 Hr 200 mg PO QAM Qty: 0 0RF Advanced Probiotic 625 mg (10 billion cell) Capsule 2 cap PO DAILY Qty: 0 0RF lorazepam 1 mg Tablet 1 mg PO HS PRNQty: 0 0RF hydrocodone-acetaminophen 5-325 mg Tablet 1 tab PO Q4H PRNQty: 0 0RF polyethylene glycol 3350 [Miralax] 17 gram Powder In Packet 17 g PO DAILY Qty: 0 0RF diltiazem HCl 180 mg Capsule,Extended Release 24hr 180 mg PO QAM Qty: 0 0RF Continued metoprolol succinate 200 mg tablet extended release 24 hr 200 mg PO DAILY Qty: 90 3RF omeprazole 20 mg tablet,disintegrat, delay rel 20 mg PO QAM Qty: 90 3RF oxycodone 5 mg tablet 5 mg PO Q4H PRN (Reason: Pain) sertraline 100 mg tablet 100 mg PO QAM Qty: 90 3RF abiraterone [Zytiga] 500 mg Tablet 1,000 mg PO QAM Rx Instructions: WEAR GLOVES WHEN HANDLING OR DISPENSING calcium carbonate-vitamin D3 [Calcium 500 + D] 500 mg(1,250mg) -200 unit Tablet 1 tab PO QAM multivitamin with minerals Tablet 1 tab PO DAILY ondansetron 4 mg Tablet,Disintegrating 4 mg PO Q8H PRN (Reason: NAUSEA/VOMITING) triamcinolone acetonide 0.1 % Cream 1 applic TOPICAL .AMPM Rx Instructions: APPLY TO LEG TOPICALLY EVERY DAY AND EVENING SHIFT FOR RASH. loratadine [Wal-itin] 10 mg Tablet 10 mg PO DAILY Qty: 0 0RF baclofen 10 mg Tablet 10 mg PO TID Qty: 0 0RF glimepiride 2 mg tablet 2 mg PO QAM prednisone 5 mg tablet 5 mg PO BID cyanocobalamin (vitamin B-12) 500 mcg Tablet 1,000 mcg PO QAM Qty: 0 0RF atorvastatin 20 mg tablet 20 mg PO HS nitroglycerin [Nitrostat] 0.4 mg tablet, sublingual 0.4 mg sublingual Q5M MDD X3 PRN (Reason: Chest Pain) oxycodone [OxyContin] 10 mg tablet,oral only,ext.rel.12 hr 10 mg PO AMHS acetaminophen 325 mg Tablet 650 mg PO Q6 PRN (Reason: Pain 1-4) Discontinued amlodipine 10 mg tablet 10 mg PO QAM Qty: 90 3RF lisinopril 20 mg tablet 20 mg PO DAILY Qty: 90 3RF amoxicillin 875 mg Tablet 875 mg PO BID Qty: 0 0RF Rx Instructions: TAKE UNTIL 11/17/22. Discharge Orders: Discharge Order (Routine); Ordered 11/27/22 Ordered By: Luiz Parish Admission Data Admit Date/Time: 11/14/22 19:47 Attending Provider: Luiz Parish Admit Provider: Patrice Goel Primary Care Provider: Kings Rios Other Providers: Benedict Velazco ; [facility] ; Patrice Goel ; Bri Ding ; Jeremy Torre ; Erin Maguire ; Adelaida Fitzgerald ; Erica Núñez ; Aubree Juárez ; Sharee Marino ; Krista Newsome ; Chantal Sigala Coding Level of Care Code INP/OBS EV SAME DAY LV 3,85MIN Diagnoses MRSA bacteremia R78.81; B95.62 Epidural abscess G06.2 Bacteremia R78.81 Adrenal insufficiency E27.40 Diarrhea R19.7 Hyponatremia E87.1 Pressure ulcer, back, lower L89.109 Chronic steroid use Spinal stenosis M48.00 Spinal region: unspecified Acute encephalopathy G93.40 HTN (hypertension) I10 Prostate cancer metastatic to bone C61; C79.51 Depression F32.9 DMII (diabetes mellitus, type 2) E11.9 Atrial fibrillation I48.91 IPMN (intraductal papillary mucinous neoplasm) D49.0
== END 2022-11-27 13:53 | DRG 853 ==
LOC: ED 13:22 → EDINP 19:47 → SUATTDRO 19:47 → 2E 22:57
DX: C61 Malignant neoplasm of prostate; Z86.16 Personal history of COVID-19; M48.062 Spinal stenosis, lumbar region with neurogenic claudication; E87.1 Hypo-osmolality and hyponatremia; Z79.84 Long term (current) use of oral hypoglycemic drugs; G06.2 Extradural and subdural abscess, unspecified; R45.851 Suicidal ideations; Z87.891 Personal history of nicotine dependence; Y83.8 Other surgical procedures as the cause of abnormal reaction of the patient, or of later complication, without mention of misadventure at the time of the procedure; T40.2X5A Adverse effect of other opioids, initial encounter; Z79.890 Hormone replacement therapy; F32.A Depression, unspecified; E27.40 Unspecified adrenocortical insufficiency; U07.1 COVID-19; M81.8 Other osteoporosis without current pathological fracture; I48.91 Unspecified atrial fibrillation; E88.09 Other disorders of plasma-protein metabolism, not elsewhere classified; K59.00 Constipation, unspecified; Y92.129 Unspecified place in nursing home as the place of occurrence of the external cause; A41.02 Sepsis due to Methicillin resistant Staphylococcus aureus; I10 Essential (primary) hypertension; T81.49XA Infection following a procedure, other surgical site, initial encounter; R33.9 Retention of urine, unspecified; R19.7 Diarrhea, unspecified; I95.9 Hypotension, unspecified; C79.51 Secondary malignant neoplasm of bone; G93.41 Metabolic encephalopathy; E11.65 Type 2 diabetes mellitus with hyperglycemia; G06.1 Intraspinal abscess and granuloma; Z98.890 Other specified postprocedural states; T42.8X5A Adverse effect of antiparkinsonism drugs and other central muscle-tone depressants, initial encounter; D13.6 Benign neoplasm of pancreas; L89.133 Pressure ulcer of right lower back, stage 3; G92.8 Other toxic encephalopathy; Z79.52 Long term (current) use of systemic steroids

== ENCOUNTER 2022-12-30 14:17 | Inpatient (IN) ==
--- NOTE | 2022-12-30 14:35 | Emergency Department Note ---
Impression & Plan Fatigue, Dyspnea, Pulmonary edema ED Provider Note ED Provider Note NAME: VONDA GOLDEN AGE:77 SEX: Male : 1945 ARRIVES VIA: EMS INFORMANT: Patient ED PROVIDER(s): Libby Diehl DO CHIEF COMPLAINT: Fatigue, low back pain HPI: This is a 77-year-old male presents emergency department due to concern by staff [facility] over increased fatigue. Patient with recent back surgery initially in October and then again mid November after he was found to have an epidural abscess with MRSA bacteremia. Patient has been receiving IV antibiotics via a PICC line in the left upper extremity. He has 2 more days of daptomycin to finish. He had also recently been on Levaquin for an additional infection according to EMS as well as an antifungal. Patient states he has pain in his low back in the area of the surgery however is otherwise been feeling well. States his appetite has been normal. Denies any change in bowel movements or complications related to the indwelling [place]. He denies fevers or chills. Patient admits to slightly increased shortness of breath, but denies chest pain, abdominal pain, headaches, or palpitations. PAST MEDICAL HISTORY:See Below PAST SURGICAL HISTORY:See Below FAMILY HISTORY:See Below SOCIAL HISTORY:See Below HOME MEDICATIONS:See Below ALLERGIES:See Below VITALS:See Below PHYSICAL EXAMINATION: GENERAL: alert, well appearing, well nourished, no distress, non-toxic EYE EXAM: normal conjunctiva, PERRL and EOM's grossly intact OROPHARYNX: no exudate, no erythema, lips, buccal mucosa, and tongue normal and mucous membranes are moist NECK: supple, no nuchal rigidity, no adenopathy, non-tender LUNGS: Clear to auscultation. Normal chest wall mechanics, no w/r/r, increased work of breathing noted with use of abdomen, no retractions, mild tachypnea HEART: no murmurs, S1 normal and S2 normal ABDOMEN: abdomen soft, non-tender, normo-active bowel sounds, no masses, no rebound or guarding. BACK: Back is symmetrical on inspection and there is no deformity, no midline tenderness, no CVA tenderness. SKIN: no rashes, petechiae, orbruising UPPER EXTREMITIES: upper extremities are grossly normal. FROM, nml pulses b/l. LOWER EXTREMITIES: No pitting edema. nml pulses b/l, sensation intact bilaterally NEURO EXAM: Normal sensorium, cranial nerves II-XII grossly intact, normal speech, no facial droop,nogross weakness of arms, no gross weakness of legs. Gross sensation intact. No ataxia. Vital Signs: reviewed and remarkable Differential Diagnosis: bacteremia/sepsis, uti, aspiration, pna, CHF, persistent epidural infection, dehydration, electrolyte abnormality, as well as others were considered MEDICAL DECISION MAKING: THis is a 77 yo male who presents to the ER from [facility] due to concern for fatigue, back pain, and recent complicated admission and back surgery. Patient is still receiving IV daptomycin via a PICC and also had completed additional levaquin course in the last few days. Patient's condition discussed with family at bedside and with nurse Severiano at [facility]. Patient with mild hypotension on arrival and was started on gentle IVF. Labs drawn and sent, IV established, EKG and CXR performed and interpreted at bedside, and patient placed on telemetry. UA had been sent by [facility] earlier today prior to sending the patient in and culture pending. UA pulled off his wal[place] and is likely contaminated/colonized due to chronic indwelling walton. Labs reassuring. CXR with possible increased pulmonary edema. Patient not receiving DVT prophylaxis at [facility] and given immobility he was sent for CTA chest additionally. No evidence of PE but pulmonary edema noted. Prio echo from earlier this year reviewed and was reassuring. No prior hx of CHF. Patient given lasix 20 mg IV and IVF dc'd. Case discussed with hospitalist for additional inpatient mgmt. Consultation(s): 2049: Discussed with Dr. Brownlee, [place] hospitalist, for additional evaluation. ER Treatment Provided: See below Diagnostics Interpreted By Me: -ECG: a.fib at 83, nml axis, nml intervals, nonspecific ST/T wave changes -Cardiac Monitoring: An order was placed for continuous cardiac monitoring. The monitor shows a rate of 90 with a.fib rhythm. -Laboratory studies: As stated above and show below. -Imaging studies: X-ray Chest: A single view study of the chest was reviewed and was negative for cardiomegaly, focal infiltrate, effusion, or wide mediastinum. Possible pulmonary edema noted b/l. Triage Nursing Note Reviewed Prior/Outside Records Reviewed - dc summary from 11/27/22 reviewed Past Med/Surg History Medical History Adrenal insufficiency Spinal stenosis Prostate cancer metastatic to bone Atrial fibrillation DX 2019 - FOLLOWS W/ DR. GRANADOS DMII (diabetes mellitus, type 2) IPMN (intraductal papillary mucinous neoplasm) Acute urinary retention Morbid obesity Neurogenic claudication due to lumbar spinal stenosis Balanitis Thrombocytopenia COVID-19 Lumbar spondylosis Ambulatory dysfunction COVID-19 09/2022 requiring hospitalization Fatigue Urinary tract infection Urinary frequency Sacral lesion Prostate nodule Kidney stones Hypercholesterolemia Hydronephrosis of right kidney Androgen-induced osteoporosis Insomnia Resolved Chronic steroid use PROSTATE CANCER Osteoarthritis Ureter injury OBSTRUCTION OF RT URETER / PROSTATE CA Hyperlipidemia Urinary incontinence Urge incontinence Spinal stenosis Depression Renal insufficiency Urinary retention Resolved Anxiety Psychosis Had hx of depression with psychotic episode - resolved IBS (irritable bowel syndrome) HTN (hypertension) Surgical History History of cataract surgery 2019 - Bilat History of tooth extraction in age 20's History of tonsillectomy as a child History of colonoscopy 2011 (due in 2021) History of prostate biopsy 2014 S/P TURP 2014 Family History Mother , Passed age 60 of sepsis Gallbladder disease Mental disorder Psychological disorder Father , Passed age 89 of sepsis (infected bladder stones) Congestive heart failure Bladder stones Prostate cancer no treatment needed Brother Heart failure Kidney stones Kidney disease Bladder cancer, Onset Age: 75 Myocardial infarction Grandmother (Paternal) , Passed age 93 of old age Breast cancer, Onset Age: 40 double mastectomy and then did well Sister , Passed age 2 of pneumonia No problems noted. 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 Required: No Beliefs That Will Affect Care: None marital status: Current Living Situation: Spouse Current Living Situation Comment: LIVES W/ OLIVER - current occupational status: retired 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 Other Information That Helps Us Care for You: No Feels Safe at Home: Yes Safety Concerns: Feels Safe At This Time Childhood Exposure to Second-Hand Smoke: No Diet: diabetic caffeine: Yes (1 cup of coffee/day ) during the past year weight has: remained stable Dental Care, Regularly: No Physical Activity Frequency: Does not Exercise Seatbelt Use: always Sunscreen Use: Yes Assistive Devices: Glasses and Oxygen - Continuous Allergies Allergies Allergy/AdvReac Type Severity Reaction Status Date / Time cat dander Allergy Severe CAN CAUSE Verified 12/30/22 20:35 ASTHMA ATTACK-itchy eyes, congestion gabapentin AdvReac Intermediate Hallucinati Verified 12/30/22 20:35 ng tramadol AdvReac Intermediate Hallucinati Verified 12/30/22 20:35 ng Home Meds Home Medications Medication Instructions Recorded Confirmed Daptomcin Iv Solution 800 mg IV DAILY 12/30/22 12/30/22 Heparin Sod Lock Flush 5 ml IV QS 12/30/22 12/30/22 L.acidop,casei,lactis,rham-B.lact,donn 2 cap PO QAM 12/30/22 12/30/22 625 mg (10 billion cell) capsule (Advanced Probiotic) abiraterone 500 mg tablet 1,000 mg PO QAM 12/30/22 12/30/22 acetaminophen 325 mg tablet 650 mg PO Q6 PRN Fever Or Pain 12/30/22 12/30/22 (Tylenol) aluminum-mag hydroxide-simethicone 30 ml PO .Q6 PRN .GI UPSET 12/30/22 12/30/22 400 mg-400 mg-40 mg/5 mL oral susp (Mylanta Maximum Strength) atorvastatin 20 mg tablet 20 mg PO .HOLD UNTIL 01/02/23 12/30/22 12/30/22 baclofen 10 mg tablet 10 mg PO TID 12/30/22 12/30/22 calcium carbonate 500 mg-vitamin 1 tab PO DAILY 12/30/22 12/30/22 D3 5 mcg (200 unit) tablet (Calcium 500 + D) cyanocobalamin (vitamin B-12) 1,000 mcg PO QAM 12/30/22 12/30/22 1,000 mcg tablet (Vitamin B-12) diltiazem HCl 180 mg 180 mg PO QAM 12/30/22 12/30/22 tablet,extended release 24 hr doxycycline hyclate 100 mg tablet 100 mg PO .Q12HRS UD 12/30/22 12/30/22 glimepiride 2 mg tablet 2 mg PO QAM 12/30/22 12/30/22 insulin lispro 100 unit/mL 0 sliding scale dose subcut ACHS 12/30/22 12/30/22 subcutaneous cartridge (Humalog U-100 Insulin) ipratropium 0.5 mg-albuterol 3 mg 3 ml inhalation .Q2HR PRN 12/30/22 12/30/22 (2.5 mg base)/3 mL nebulization Shortness Of Breath Or Wheezing soln ipratropium 0.5 mg-albuterol 3 mg 3 ml inhalation .QID FOR 2WEEKS 12/30/22 12/30/22 (2.5 mg base)/3 mL nebulization soln levofloxacin 750 mg tablet 750 mg PO .DAILY UD 12/30/22 12/30/22 loratadine 10 mg capsule 10 mg PO DAILY 12/30/22 12/30/22 menthol 0.44 %-zinc oxide 20.6 % 1 applic topical QS 12/30/22 12/30/22 topical ointment (Calmoseptine) metoprolol succinate 200 mg 200 mg PO QAM 12/30/22 12/30/22 tablet,extended release 24 hr multivitamin 1 tab PO DAILY 12/30/22 12/30/22 naloxone 0.4 mg/mL injection 0.4 mg IV DIRECTED PRN ams 12/30/22 12/30/22 solution nitroglycerin 0.4 mg sublingual 0.4 mg sublingual DIRECTED PRN 12/30/22 12/30/22 tablet (Nitrostat) Chest Pain omeprazole 20 mg tablet,delayed 20 mg PO DAILY 12/30/22 12/30/22 release ondansetron HCl 4 mg tablet 4 mg PO Q6H PRN Nausea 12/30/22 12/30/22 polyethylene glycol 3350 17 gram 17 g PO QAM 12/30/22 12/30/22 oral powder packet (Miralax) prednisone 5 mg tablet 5 mg PO BID 12/30/22 12/30/22 saliva substitute combo no.9 2 ea PO .Q2HRS PRN .DRY MOUTH 12/30/22 12/30/22 (Biotene Dry Mouth Oral Rinse mouthwash) sertraline 100 mg tablet 100 mg PO DAILY 12/30/22 12/30/22 sodium chloride 0.9 % (flush) 10 ml IV QS 12/30/22 12/30/22 triamcinolone acetonide 0.1 % 1 applic topical DIRECTED 12/30/22 12/31/22 topical ointment Results & Data (ED) Vital Signs Vital Signs - 24 hr 12/31/22 15:00 12/31/22 15:00 12/31/22 16:00 Temperature Temperature Source Pulse Rate 85 Pulse Rate [Apical] Pulse Rate [Finger] Pulse Rate from SpO2 Sensor 86 Pulse Rhythm [Apical] Pulse Rhythm [Finger] Pulse Strength [Apical] Pulse Strength [Finger] Respiratory Rate 20 Respiratory Effort / Characteristics Respiratory Depth Respiratory Pattern Blood Pressure 107/86 114/94 Blood Pressure [Right Arm] Blood Pressure Mean 91 99 Blood Pressure Mean [Right Arm] Blood Pressure Position [Right Arm] Pulse Oximetry 100 Oxygen Delivery Method Oxygen Flow Rate EWS Level of Consciousness - Last Result EWS Temperature - Last Result EWS Respiratory Rate - Last Result EWS Oxygen Saturation - Last Result EWS Oxygen in Use - Last Result EWS Lactate - Last Result EWS Score EWS Clinical Risk 12/31/22 16:00 12/31/22 17:04 12/31/22 17:30 Temperature 36.3 C L Temperature Source Axillary Pulse Rate 86 Pulse Rate [Apical] 93 H Pulse Rate [Finger] Pulse Rate from SpO2 Sensor 92 H 88 Pulse Rhythm [Apical] Regular Pulse Rhythm [Finger] Pulse Strength [Apical] Normal Pulse Strength [Finger] Respiratory Rate 23 23 22 Respiratory Effort / Characteristics Non-Labored Spontaneous Respiratory Depth Normal Respiratory Pattern Regular Blood Pressure Blood Pressure [Right Arm] 106/72 Blood Pressure Mean Blood Pressure Mean [Right Arm] 83 Blood Pressure Position [Right Arm] Semi-fowlers Pulse Oximetry 99 95 99 Oxygen Delivery Method Nasal Cannula Oxygen Flow Rate 2 EWS Level of Consciousness - Last Result EWS Temperature - Last Result EWS Respiratory Rate - Last Result EWS Oxygen Saturation - Last Result EWS Oxygen in Use - Last Result EWS Lactate - Last Result EWS Score EWS Clinical Risk 12/31/22 18:22 12/31/22 18:44 12/31/22 19:50 Temperature 36.1 C L Temperature Source Axillary Pulse Rate 82 Pulse Rate [Apical] Pulse Rate [Finger] 86 Pulse Rate from SpO2 Sensor Pulse Rhythm [Apical] Pulse Rhythm [Finger] Pulse Strength [Apical] Pulse Strength [Finger] Respiratory Rate 18 Respiratory Effort / Characteristics Spontaneous Short of Breath Respiratory Depth Normal Respiratory Pattern Regular Blood Pressure Blood Pressure [Right Arm] 94/60 L Blood Pressure Mean Blood Pressure Mean [Right Arm] 71 Blood Pressure Position [Right Arm] Lying Pulse Oximetry 98 Oxygen Delivery Method Nasal Cannula Nasal Cannula Oxygen Flow Rate 2 2 EWS Level of Consciousness - Last Result EWS Temperature - Last Result EWS Respiratory Rate - Last Result EWS Oxygen Saturation - Last Result EWS Oxygen in Use - Last Result EWS Lactate - Last Result EWS Score EWS Clinical Risk 12/31/22 19:51 12/31/22 22:00 12/31/22 22:32 Temperature Temperature Source Pulse Rate 83 Pulse Rate [Apical] Pulse Rate [Finger] Pulse Rate from SpO2 Sensor Pulse Rhythm [Apical] Pulse Rhythm [Finger] Pulse Strength [Apical] Pulse Strength [Finger] Respiratory Rate Respiratory Effort / Characteristics Non-Labored Spontaneous Respiratory Depth Normal Respiratory Pattern Regular Blood Pressure Blood Pressure [Right Arm] Blood Pressure Mean Blood Pressure Mean [Right Arm] Blood Pressure Position [Right Arm] Pulse Oximetry Oxygen Delivery Method Nasal Cannula Oxygen Flow Rate 2 EWS Level of Consciousness - Last Result Spontaneously Alert EWS Temperature - Last Result 36.1 EWS Respiratory Rate - Last Result 18 EWS Oxygen Saturation - Last Result 98 EWS Oxygen in Use - Last Result Yes EWS Lactate - Last Result 1.8 EWS Score 2 EWS Clinical Risk Low Risk 01/01/23 00:07 01/01/23 00:08 01/01/23 02:00 Temperature 36.2 C L Temperature Source Axillary Pulse Rate Pulse Rate [Apical] Pulse Rate [Finger] 83 Pulse Rate from SpO2 Sensor Pulse Rhythm [Apical] Pulse Rhythm [Finger] Pulse Strength [Apical] Pulse Strength [Finger] Respiratory Rate 18 Respiratory Effort / Characteristics Respiratory Depth Respiratory Pattern Blood Pressure Blood Pressure [Right Arm] 113/78 Blood Pressure Mean Blood Pressure Mean [Right Arm] 89 Blood Pressure Position [Right Arm] Lying Pulse Oximetry 98 Oxygen Delivery Method Nasal Cannula Oxygen Flow Rate 2 EWS Level of Consciousness - Last Result Spontaneously Alert Spontaneously Alert EWS Temperature - Last Result 36.2 36.2 EWS Respiratory Rate - Last Result 18 18 EWS Oxygen Saturation - Last Result 98 98 EWS Oxygen in Use - Last Result Yes Yes EWS Lactate - Last Result 1.8 1.8 EWS Score 0 0 EWS Clinical Risk Low Risk Low Risk 01/01/23 02:01 01/01/23 04:59 01/01/23 05:00 Temperature Temperature Source Pulse Rate Pulse Rate [Apical] Pulse Rate [Finger] 90 Pulse Rate from SpO2 Sensor Pulse Rhythm [Apical] Pulse Rhythm [Finger] Pulse Strength [Apical] Pulse Strength [Finger] Respiratory Rate 18 Respiratory Effort / Characteristics Respiratory Depth Respiratory Pattern Blood Pressure Blood Pressure [Right Arm] 118/77 Blood Pressure Mean Blood Pressure Mean [Right Arm] 90 Blood Pressure Position [Right Arm] Lying Pulse Oximetry 99 Oxygen Delivery Method Nasal Cannula Oxygen Flow Rate 2 EWS Level of Consciousness - Last Result Spontaneously Alert Spontaneously Alert EWS Temperature - Last Result 36.2 36.2 EWS Respiratory Rate - Last Result 18 18 EWS Oxygen Saturation - Last Result 98 99 EWS Oxygen in Use - Last Result Yes Yes EWS Lactate - Last Result 1.8 1.8 EWS Score 0 0 EWS Clinical Risk Low Risk Low Risk 01/01/23 07:00 01/01/23 07:59 01/01/23 07:59 Temperature Temperature Source Pulse Rate 81 Pulse Rate [Apical] Pulse Rate [Finger] 86 Pulse Rate from SpO2 Sensor Pulse Rhythm [Apical] Pulse Rhythm [Finger] Pulse Strength [Apical] Pulse Strength [Finger] Respiratory Rate 16 Respiratory Effort / Characteristics Respiratory Depth Respiratory Pattern Blood Pressure Blood Pressure [Right Arm] 103/62 Blood Pressure Mean Blood Pressure Mean [Right Arm] 75 Blood Pressure Position [Right Arm] Pulse Oximetry 100 Oxygen Delivery Method Nasal Cannula Oxygen Flow Rate 3 EWS Level of Consciousness - Last Result Spontaneously Alert EWS Temperature - Last Result 36.2 EWS Respiratory Rate - Last Result 16 EWS Oxygen Saturation - Last Result 100 EWS Oxygen in Use - Last Result Yes EWS Lactate - Last Result 1.8 EWS Score 1 EWS Clinical Risk Low Risk 01/01/23 09:02 Temperature 35.9 C L Temperature Source Temporal Artery Scan Pulse Rate Pulse Rate [Apical] Pulse Rate [Finger] 84 Pulse Rate from SpO2 Sensor Pulse Rhythm [Apical] Pulse Rhythm [Finger] Regular Pulse Strength [Apical] Pulse Strength [Finger] Normal Respiratory Rate 22 Respiratory Effort / Characteristics Spontaneous Short of Breath Respiratory Depth Normal Respiratory Pattern Regular Blood Pressure Blood Pressure [Right Arm] 135/84 Blood Pressure Mean Blood Pressure Mean [Right Arm] 101 Blood Pressure Position [Right Arm] Lying Pulse Oximetry 99 Oxygen Delivery Method Nasal Cannula Oxygen Flow Rate 3 EWS Level of Consciousness - Last Result EWS Temperature - Last Result EWS Respiratory Rate - Last Result EWS Oxygen Saturation - Last Result EWS Oxygen in Use - Last Result EWS Lactate - Last Result EWS Score EWS Clinical Risk Laboratory Data 01/01/23 05:36 01/01/23 05:36 Lab Results 12/30/22 12/30/22 12/31/22 Range/Units 14:59 15:00 04:17 WBC 6.84 6.65 (4.8-10.8) K/ul RBC 4.18 L 3.89 L (4.70-6.10) M/uL Hgb 12.7 L 11.8 L (14.0-18.0) g/dl Hct 41.0 L 37.6 L (42.0-52.0) % MCV 98.1 96.7 (80.0-100.0) fL MCH 30.4 30.3 (25.0-34.0) pg MCHC 31.0 L 31.4 L (32.0-36.0) g/dL RDW Std Deviation 60.5 H 58.2 H (36.4-46.3) fL RDW Coeff of Tramaine 16.9 H 16.5 H (11.5-14.5) % Plt Count 155 155 (130-400) K/uL MPV 10.1 9.9 (9.4-12.4) fL Absolute Nucleated RBC 0.03 0.02 (0.00-0.12) K/uL Nucleated RBC % (auto) 0.4 0.3 % Neutrophils % (Manual) 81 79 % Lymphocytes % (Manual) 10 9 % Monocytes % (Manual) 3 3 % Eosinophils % (Manual) 2 % Basophils % (Manual) % Metamyelocytes % (Man) 1 3 % Myelocytes % (Man) 3 6 % Neutrophils # (Manual) 5.54 5.25 (1.40-6.50) K/uL Total Absolute Neuts 5.54 5.25 (1.4-6.5) K/uL Lymphocytes # (Manual) 0.68 L 0.60 L (1.2-3.4) K/uL Total Abs Lymphocytes 0.68 L 0.60 L (1.2-3.4) K/uL Monocytes # (Manual) 0.21 0.20 (0.11-0.59) K/uL Eosinophils # (Manual) 0.14 (0-0.50) K/uL Basophils # (Manual) (0-0.2) K/uL Metamyelocytes # (Man) 0.07 H 0.20 H (0-0) K/uL Myelocytes # (Manual) 0.21 H 0.40 H (0-0) K/uL Polychromasia 1+ Tear Drop Cells 1+ Echinocytes 2+ Sodium 140 140 (136-145) mmol/L Potassium 3.9 4.2 (3.5-5.1) mmol/L Chloride 107 107 (98-107) mmol/L Carbon Dioxide 29 19 L (21-32) mmol/L Anion Gap 4 14 H (3-11) BUN 12 19 (6-23) mg/dl Creatinine 0.68 0.82 (0.6-1.4) mg/dl Est Cr Clr Drug Dosing 107.5 89.1 ml/min Est GFR ( Amer) 106.0 98.2 ml/min Est GFR (Non-Af Amer) 91.5 84.7 ml/min BUN/Creatinine Ratio 17.6 23.2 H (10-20) Glucose 90 190 H (70-99(Fasting)) mg/dl POC Glucose (70-99) mg/dl Estimat Average Glucose 154 mg/dl Hemoglobin A1c 7.0 H (4.5-5.6) % Lactate 1.8 (0.4-2.0) mmol/L Calcium 8.4 L 7.9 L (8.6-10.3) mg/dl Magnesium 1.7 (1.7-2.4) mg/dl Total Bilirubin 0.6 (0.2-1.0) mg/dl Direct Bilirubin TNP 0.1 AST 21 (13-39) U/L ALT 12 (7-52) U/L Alkaline Phosphatase 79 (34-104) U/L C-Reactive Protein 10.64 H (0-0.5) mg/dl B-Natriuretic Peptide 544 H (0-100) pg/ml Total Protein 5.0 L (6.0-8.3) gm/dl Albumin 2.7 L (3.4-5.0) gm/dl Procalcitonin 0.23 (0-0.5) ng/ml Random Vancomycin (10-20) mcg/ml Staphylococcus sp PCR DETECTED A (NotDetected) Staph aureus (PCR) DETECTED A (NotDetected) mecA/C & MREJ Resist Gene MRSA DETECTED A* (NotDetected) Bld Cult ID Panel PCR See PCR Comment (NotDetected) 12/31/22 12/31/22 12/31/22 Range/Units 08:12 12:14 16:42 WBC (4.8-10.8) K/ul RBC (4.70-6.10) M/uL Hgb (14.0-18.0) g/dl Hct (42.0-52.0) % MCV (80.0-100.0) fL MCH (25.0-34.0) pg MCHC (32.0-36.0) g/dL RDW Std Deviation (36.4-46.3) fL RDW Coeff of Tramaine (11.5-14.5) % Plt Count (130-400) K/uL MPV (9.4-12.4) fL Absolute Nucleated RBC (0.00-0.12) K/uL Nucleated RBC % (auto) % Neutrophils % (Manual) % Lymphocytes % (Manual) % Monocytes % (Manual) % Eosinophils % (Manual) % Basophils % (Manual) % Metamyelocytes % (Man) % Myelocytes % (Man) % Neutrophils # (Manual) (1.40-6.50) K/uL Total Absolute Neuts (1.4-6.5) K/uL Lymphocytes # (Manual) (1.2-3.4) K/uL Total Abs Lymphocytes (1.2-3.4) K/uL Monocytes # (Manual) (0.11-0.59) K/uL Eosinophils # (Manual) (0-0.50) K/uL Basophils # (Manual) (0-0.2) K/uL Metamyelocytes # (Man) (0-0) K/uL Myelocytes # (Manual) (0-0) K/uL Polychromasia Tear Drop Cells Echinocytes Sodium (136-145) mmol/L Potassium (3.5-5.1) mmol/L Chloride (98-107) mmol/L Carbon Dioxide (21-32) mmol/L Anion Gap (3-11) BUN (6-23) mg/dl Creatinine (0.6-1.4) mg/dl Est Cr Clr Drug Dosing ml/min Est GFR ( Amer) ml/min Est GFR (Non-Af Amer) ml/min BUN/Creatinine Ratio (10-20) Glucose (70-99(Fasting)) mg/dl POC Glucose 175 H 167 H 214 H (70-99) mg/dl Estimat Average Glucose mg/dl Hemoglobin A1c (4.5-5.6) % Lactate (0.4-2.0) mmol/L Calcium (8.6-10.3) mg/dl Magnesium (1.7-2.4) mg/dl Total Bilirubin (0.2-1.0) mg/dl Direct Bilirubin AST (13-39) U/L ALT (7-52) U/L Alkaline Phosphatase (34-104) U/L C-Reactive Protein (0-0.5) mg/dl B-Natriuretic Peptide (0-100) pg/ml Total Protein (6.0-8.3) gm/dl Albumin (3.4-5.0) gm/dl Procalcitonin (0-0.5) ng/ml Random Vancomycin (10-20) mcg/ml Staphylococcus sp PCR (NotDetected) Staph aureus (PCR) (NotDetected) mecA/C & MREJ Resist Gene (NotDetected) Bld Cult ID Panel PCR (NotDetected) 12/31/22 01/01/23 01/01/23 Range/Units 20:25 05:36 08:09 WBC 5.70 (4.8-10.8) K/ul RBC 3.71 L (4.70-6.10) M/uL Hgb 11.2 L (14.0-18.0) g/dl Hct 36.4 L (42.0-52.0) % MCV 98.1 (80.0-100.0) fL MCH 30.2 (25.0-34.0) pg MCHC 30.8 L (32.0-36.0) g/dL RDW Std Deviation 61.0 H (36.4-46.3) fL RDW Coeff of Tramaine 16.9 H (11.5-14.5) % Plt Count 148 (130-400) K/uL MPV 9.9 (9.4-12.4) fL Absolute Nucleated RBC (0.00-0.12) K/uL Nucleated RBC % (auto) % Neutrophils % (Manual) 78 % Lymphocytes % (Manual) 7 % Monocytes % (Manual) 10 % Eosinophils % (Manual) 1 % Basophils % (Manual) 1 % Metamyelocytes % (Man) 3 % Myelocytes % (Man) % Neutrophils # (Manual) 4.45 (1.40-6.50) K/uL Total Absolute Neuts 4.45 (1.4-6.5) K/uL Lymphocytes # (Manual) 0.40 L (1.2-3.4) K/uL Total Abs Lymphocytes 0.40 L (1.2-3.4) K/uL Monocytes # (Manual) 0.57 (0.11-0.59) K/uL Eosinophils # (Manual) 0.06 (0-0.50) K/uL Basophils # (Manual) 0.06 (0-0.2) K/uL Metamyelocytes # (Man) 0.17 H (0-0) K/uL Myelocytes # (Manual) (0-0) K/uL Polychromasia 1+ Tear Drop Cells Echinocytes Sodium 141 (136-145) mmol/L Potassium 3.4 L (3.5-5.1) mmol/L Chloride 107 (98-107) mmol/L Carbon Dioxide 26 (21-32) mmol/L Anion Gap 8 (3-11) BUN 26 H (6-23) mg/dl Creatinine 0.77 (0.6-1.4) mg/dl Est Cr Clr Drug Dosing 94.9 ml/min Est GFR ( Amer) 100.7 ml/min Est GFR (Non-Af Amer) 86.9 ml/min BUN/Creatinine Ratio 33.8 H (10-20) Glucose 169 H (70-99(Fasting)) mg/dl POC Glucose 204 H 138 H (70-99) mg/dl Estimat Average Glucose mg/dl Hemoglobin A1c (4.5-5.6) % Lactate (0.4-2.0) mmol/L Calcium 8.0 L (8.6-10.3) mg/dl Magnesium (1.7-2.4) mg/dl Total Bilirubin (0.2-1.0) mg/dl Direct Bilirubin AST (13-39) U/L ALT (7-52) U/L Alkaline Phosphatase (34-104) U/L C-Reactive Protein (0-0.5) mg/dl B-Natriuretic Peptide (0-100) pg/ml Total Protein (6.0-8.3) gm/dl Albumin (3.4-5.0) gm/dl Procalcitonin (0-0.5) ng/ml Random Vancomycin 21.1 H (10-20) mcg/ml Staphylococcus sp PCR (NotDetected) Staph aureus (PCR) (NotDetected) mecA/C & MREJ Resist Gene (NotDetected) Bld Cult ID Panel PCR (NotDetected) 01/01/23 Range/Units 09:04 WBC (4.8-10.8) K/ul RBC (4.70-6.10) M/uL Hgb (14.0-18.0) g/dl Hct (42.0-52.0) % MCV (80.0-100.0) fL MCH (25.0-34.0) pg MCHC (32.0-36.0) g/dL RDW Std Deviation (36.4-46.3) fL RDW Coeff of Tramaine (11.5-14.5) % Plt Count (130-400) K/uL MPV (9.4-12.4) fL Absolute Nucleated RBC (0.00-0.12) K/uL Nucleated RBC % (auto) % Neutrophils % (Manual) % Lymphocytes % (Manual) % Monocytes % (Manual) % Eosinophils % (Manual) % Basophils % (Manual) % Metamyelocytes % (Man) % Myelocytes % (Man) % Neutrophils # (Manual) (1.40-6.50) K/uL Total Absolute Neuts (1.4-6.5) K/uL Lymphocytes # (Manual) (1.2-3.4) K/uL Total Abs Lymphocytes (1.2-3.4) K/uL Monocytes # (Manual) (0.11-0.59) K/uL Eosinophils # (Manual) (0-0.50) K/uL Basophils # (Manual) (0-0.2) K/uL Metamyelocytes # (Man) (0-0) K/uL Myelocytes # (Manual) (0-0) K/uL Polychromasia Tear Drop Cells Echinocytes Sodium (136-145) mmol/L Potassium (3.5-5.1) mmol/L Chloride (98-107) mmol/L Carbon Dioxide (21-32) mmol/L Anion Gap (3-11) BUN (6-23) mg/dl Creatinine (0.6-1.4) mg/dl Est Cr Clr Drug Dosing ml/min Est GFR ( Amer) ml/min Est GFR (Non-Af Amer) ml/min BUN/Creatinine Ratio (10-20) Glucose (70-99(Fasting)) mg/dl POC Glucose 134 H (70-99) mg/dl Estimat Average Glucose mg/dl Hemoglobin A1c (4.5-5.6) % Lactate (0.4-2.0) mmol/L Calcium (8.6-10.3) mg/dl Magnesium (1.7-2.4) mg/dl Total Bilirubin (0.2-1.0) mg/dl Direct Bilirubin AST (13-39) U/L ALT (7-52) U/L Alkaline Phosphatase (34-104) U/L C-Reactive Protein (0-0.5) mg/dl B-Natriuretic Peptide (0-100) pg/ml Total Protein (6.0-8.3) gm/dl Albumin (3.4-5.0) gm/dl Procalcitonin (0-0.5) ng/ml Random Vancomycin (10-20) mcg/ml Staphylococcus sp PCR (NotDetected) Staph aureus (PCR) (NotDetected) mecA/C & MREJ Resist Gene (NotDetected) Bld Cult ID Panel PCR (NotDetected) Administered Medications Abiraterone Acetate (Abiraterone Acetate) 2 each PO DAILY@1100 MIESHA Stop: 01/30/23 12:59 Last Admin: 01/01/23 13:24 Dose: 2 each Documented By: MATTHEW Co-signed By: NISHANT Admin: 12/31/22 13:10 Dose: 2 each Documented By: CARLOS Co-signed By: AM Acetaminophen (Acetaminophen 325 Mg Tab) 650 mg PO Q6 PRN PRN Reason: Fever Or Pain Stop: 01/29/23 22:31 Last Admin: 01/01/23 04:42 Dose: 650 mg Documented By: Admin: 12/31/22 19:38 Dose: 650 mg Documented By: JIMBO Baclofen (Baclofen 10 Mg Tab) 10 mg PO TID [facility] Stop: 01/30/23 08:59 Last Admin: 01/01/23 13:22 Dose: 10 mg Documented By: Admin: 01/01/23 11:34 Dose: Not Given Documented By: Admin: 12/31/22 21:34 Dose: 10 mg Documented By: Admin: 12/31/22 13:08 Dose: 10 mg Documented By: Admin: 12/31/22 08:32 Dose: 10 mg Documented By: CARLOS Calamine/Phenol (Menthol-Zinc Oxide 360 Appln/120 Gm Tube) 1 appln EXT QS MIESHA Stop: 01/30/23 00:00 Last Admin: 01/01/23 13:24 Dose: 1 appln Documented By: Admin: 01/01/23 00:26 Dose: 1 appln Documented By: Admin: 12/31/22 16:58 Dose: 1 appln Documented By: Admin: 12/31/22 08:32 Dose: 1 appln Documented By: Admin: 12/31/22 03:19 Dose: Not Given Documented By: Fentanyl Citrate (Fentanyl Citrate Pf 100 Mcg/2 Ml Vial) 25 mcg IV Q5M PRN PRN Reason: PACU Use Only-Pain Stop: 01/01/23 20:19 Last Admin: 01/01/23 12:43 Dose: 25 mcg Documented By: Admin: 01/01/23 12:28 Dose: 25 mcg Documented By: Admin: 01/01/23 12:23 Dose: 25 mcg Documented By: BENJA Heparin Sodium (Porcine) (Heparin Sod 5,000 Unit/0.5 Ml Vial) 5,000 units SQ Q8 MIESHA Stop: 01/30/23 13:59 Last Admin: 01/01/23 08:05 Dose: Not Given Documented By: Admin: 12/31/22 21:35 Dose: 5,000 units Documented By: Admin: 12/31/22 14:14 Dose: 5,000 units Documented By: CARLOS Cefepime HCl 2,000 mg/ Syringe 20 mls @ 5 mls/min IV Q8H MIESHA; Protocol Stop: 01/07/23 00:00 Last Admin: 01/01/23 08:41 Dose: 5 mls/min Documented By: Admin: 01/01/23 00:26 Dose: 5 mls/min Documented By: Admin: 12/31/22 16:49 Dose: 5 mls/min Documented By: Admin: 12/31/22 08:32 Dose: 5 mls/min Documented By: Admin: 12/30/22 23:59 Dose: 5 mls/min Documented By: ACC Vancomycin HCl 1,000 mg/ (Sodium Chloride) 270 mls @ 200 mls/hr IV Q12H MIESHA Stop: 01/15/23 09:59 Last Admin: 01/01/23 13:21 Dose: 200 mls/hr Documented By: MATTHEW Lactated Ringer's (Lr) 1,000 mls @ 15 mls/hr IV .Q24H MIESHA Stop: 01/02/23 09:14 Last Admin: 01/01/23 13:22 Dose: Not Given Documented By: MATTHEW Insulin Aspart (Insulin Aspart Per Unit Charge) 0 units SQ ACHS MIESHA Stop: 01/30/23 07:29 Last Admin: 01/01/23 13:31 Dose: Not Given Documented By: Admin: 01/01/23 09:27 Dose: Not Given Documented By: Admin: 12/31/22 21:32 Dose: 2 units Documented By: JIMBO Co-signed By: TRISTAN Admin: 12/31/22 16:46 Dose: 2 units Documented By: ACC Co-signed By: KK Admin: 12/31/22 13:08 Dose: 1 units Documented By: CARLOS Co-signed By: AM Admin: 12/31/22 09:55 Dose: 1 units Documented By: CARLOS Co-signed By: GERMAIN Lactobacillus Acidophilus (Advanced Probiotic 1250 Mg Capsule) 2 cap PO QAM MIESHA Stop: 01/30/23 08:59 Last Admin: 01/01/23 13:23 Dose: 2 cap Documented By: Admin: 12/31/22 08:33 Dose: 2 cap Documented By: CARLOS Loratadine (Loratadine 10 Mg Tab) 10 mg PO DAILY MIESHA Stop: 01/30/23 08:59 Last Admin: 01/01/23 13:23 Dose: 10 mg Documented By: Admin: 12/31/22 08:33 Dose: 10 mg Documented By: CARLOS Oxycodone HCl (Oxycodone Hcl Ir 5 Mg Tab (Immediate Release)) 5 mg PO Q4H PRN PRN Reason: Pain Stop: 01/13/23 22:31 Last Admin: 12/31/22 21:33 Dose: 5 mg Documented By: JIMBO Pantoprazole Sodium (Pantoprazole 40 Mg Tab) 40 mg PO DAILY [facility] Stop: 01/30/23 08:59 Last Admin: 01/01/23 13:22 Dose: 40 mg Documented By: Admin: 12/31/22 08:33 Dose: 40 mg Documented By: CARLOS Polyethylene Glycol (Polyethylene (Miralax) 17 Gm Pack) 17 gm PO QAM [facility] Stop: 01/30/23 08:59 Last Admin: 01/01/23 08:14 Dose: Not Given Documented By: Admin: 12/31/22 08:38 Dose: Not Given Documented By: CARLOS Prednisone (Prednisone 10 Mg Tablet) 10 mg PO BID [facility] Stop: 01/30/23 08:59 Last Admin: 12/31/22 21:34 Dose: 10 mg Documented By: Admin: 12/31/22 08:33 Dose: 10 mg Documented By: CARLOS Sertraline HCl (Sertraline Hcl 100 Mg Tablet) 100 mg PO DAILY [facility] Stop: 01/30/23 08:59 Last Admin: 01/01/23 13:23 Dose: 100 mg Documented By: Admin: 12/31/22 08:33 Dose: 100 mg Documented By: CARLOS Discontinued Medications Bupivacaine HCl/Epinephrine Bitart (Bupivacaine/Epinephrine 0.25% 1:200,000 30 Ml Vial) Confirm Administered Dose 30 ml .ROUTE .STK-MED ONE Stop: 01/01/23 10:08 Last Admin: 01/01/23 11:36 Dose: 15 ml Documented By: EMELIA Cefazolin Sodium (Cefazolin 330 Mg/Ml 1 Gm Vial) Confirm Administered Dose 990 mg .ROUTE .STK-MED ONE Stop: 01/01/23 10:08 Last Admin: 01/01/23 11:37 Dose: 990 mg Documented By: EMELIA Fentanyl Citrate (Fentanyl Citrate Pf 100 Mcg/2 Ml Vial) 50 mcg IV Q15M PRN PRN Reason: Pain Stop: 01/13/23 19:22 Last Admin: 12/30/22 19:39 Dose: 50 mcg Documented By: ACC Fentanyl Citrate (Fentanyl Citrate Pf 100 Mcg/2 Ml Vial) Confirm Administered Dose 100 mcg .ROUTE .STK-MED ONE Stop: 01/01/23 12:23 Last Admin: 01/01/23 13:42 Dose: Not Given Documented By: MATTHEW Furosemide (Furosemide Inj 20 Mg/2 Ml Vial) 20 mg IV ONE ONE Stop: 12/30/22 20:01 Last Admin: 12/30/22 20:38 Dose: 20 mg Documented By: ACC Gentamicin Sulfate (Gentamicin Sulfate 40 Mg/Ml 2 Ml Vial) Confirm Administered Dose 240 mg .ROUTE .STK-MED ONE Stop: 01/01/23 10:10 Last Admin: 01/01/23 11:37 Dose: 240 mg Documented By: GMB Sodium Chloride (Nss) 1,000 mls @ 125 mls/hr IV .Q8H MIESHA Stop: 01/29/23 15:44 Last Infusion: 12/31/22 03:27 Dose: Infused Documented By: Infusion: 12/31/22 03:24 Dose: 0 mls/hr Documented By: Infusion: 12/30/22 20:40 Dose: 0 mls/hr Documented By: Admin: 12/30/22 15:52 Dose: 125 mls/hr Documented By: ACC Acetaminophen (Ofirmev) 1,000 mg in 100 mls @ 400 mls/hr IV NOW STA Stop: 12/30/22 19:35 Last Infusion: 12/30/22 20:32 Dose: Infused Documented By: Admin: 12/30/22 19:37 Dose: 400 mls/hr Documented By: ACC Vancomycin HCl 2,500 mg/ (Sodium Chloride) 550 mls @ 180 mls/hr IV NOW ONE Stop: 12/31/22 02:03 Last Infusion: 12/31/22 03:22 Dose: Infused Documented By: Admin: 12/31/22 00:01 Dose: 180 mls/hr Documented By: ACC Albumin Human (Albumin 25%) 25 gm in 100 mls @ 50 mls/hr IV Q2H MIESHA Stop: 12/31/22 07:44 Last Infusion: 12/31/22 07:50 Dose: Infused Documented By: Admin: 12/31/22 05:50 Dose: 50 mls/hr Documented By: Infusion: 12/31/22 05:50 Dose: Infused Documented By: Admin: 12/31/22 04:02 Dose: 50 mls/hr Documented By: FRANCK Vancomycin HCl 1,250 mg/ (Sodium Chloride) 275 mls @ 200 mls/hr IV Q12H MIESHA Stop: 01/07/23 09:59 Last Infusion: 01/01/23 00:02 Dose: Infused Documented By: Admin: 12/31/22 21:37 Dose: 200 mls/hr Documented By: Infusion: 12/31/22 09:58 Dose: Infused Documented By: Admin: 12/31/22 08:33 Dose: 200 mls/hr Documented By: CARLOS Ioversol (Optiray 320 125ml) 116 ml IV ONCE ONE Stop: 12/30/22 18:40 Last Admin: 12/30/22 18:39 Dose: 116 ml Documented By: JANIS Miscellaneous (Abiraterone: Order Awaiting Action) 1 each N/A QS MIESHA Stop: 01/30/23 07:59 Last Admin: 12/31/22 08:30 Dose: Not Given Documented By: CARLOS Vancomycin HCl (Vancomycin Hcl 1000mg/20ml Vial) Confirm Administered Dose 50 mg .ROUTE .STK-MED ONE Stop: 01/01/23 10:10 Last Admin: 01/01/23 11:38 Dose: 1,000 mg Documented By: GMB Imaging Data Radiologist's Impression: Chest X-Ray 12/30/22 14:31 XR chest 1V portable CLINICAL HISTORY: Sepsis TECHNIQUE: Single frontal radiograph of the chest was obtained. Comparison: Comparison is made to chest radiograph 11/15/2022 FINDINGS: No lines and tubes are seen. Calcified aortic knob is seen. Reticular interstitial opacities are seen. No evidence of pleural effusion or pneumothorax. IMPRESSION: No acute chest disease. ACT 112: Negative or not required by law. Electronically signed by: Paulino Saha M.D. 12/30/2022 3:02 PM Chest CTA 12/30/22 16:55 Exam(s): CTA CHEST IV Amt: 116 ml optiray 320 EXAM: CT Angiography Chest With Intravenous Contrast CLINICAL HISTORY: Reason for exam: PE. TECHNIQUE: Axial computed tomographic angiography images of the chest with intravenous contrast. CTDI is 14.25 mGy and DLP is 794.99 mGy-cm. Automated exposure control was utilized for the study. A dose lowering technique was utilized adhering to the principles of ALARA. MIP reconstructed images were created and reviewed. COMPARISON: November 14, 2022 FINDINGS: Pulmonary arteries: The pulmonary arterial tree is well opacified with contrast. No pulmonary emboli are identified. Aorta: The aortic arch is mildly calcified but nondilated. There is no aneurysm or dissection. Lungs: The heart is mildly enlarged. There is severe coronary calcification and moderate mitral calcification. There is reflux of contrast into the IVC and hepatic veins. Consider mild CHF. Lungs are well-inflated. There are linear densities in the perihilar regions and areas of platelet consolidation in both lung bases which may represent atelectasis or pneumonia. Pleural space: Unremarkable. No significant effusion. No pneumothorax. Heart: Unremarkable. No cardiomegaly. No significant pericardial effusion. No evidence of RV dysfunction. Bones/joints: There are moderate degenerative changes in the lower thoracic spine. No acute fracture or bone lesion is seen. There are several old healed left rib fractures. No dislocation. Soft tissues: Unremarkable. Lymph nodes: Unremarkable. No enlarged lymph nodes. IMPRESSION: 1. The heart is mildly enlarged. There is severe coronary calcification and moderate mitral calcification. There is reflux of contrast into the IVC and hepatic veins. Consider mild CHF. 2. Lungs are well-inflated. There are linear densities in the perihilar regions and areas of platelet consolidation in both lung bases which may represent atelectasis or pneumonia. 3. The pulmonary arterial tree is well opacified with contrast. No pulmonary emboli are identified. 4. The aortic arch is mildly calcified but nondilated. There is no aneurysm or dissection. Electronically signed by: Sharath Lou MD 12/30/22 19:21 PM Discharge Plan Visit Data Chief Complaint: Illness Stated Complaint: BACK PAIN ED Provider: Libby Diehl Discharge Problem: Fatigue, Dyspnea, Pulmonary edema Patient Disposition: Admitted As Inpatient Discharge Instructions Interventions: ED Discharge Assessment Last Done: 12/30/22 22:33
--- NOTE | 2022-12-30 15:03 | XRay Report ---
XR chest 1V portable CLINICAL HISTORY: Sepsis TECHNIQUE: Single frontal radiograph of the chest was obtained. Comparison: Comparison is made to chest radiograph 11/15/2022 FINDINGS: No lines and tubes are seen. Calcified aortic knob is seen. Reticular interstitial opacities are seen . No evidence of pleural effusion or pneumothorax. IMPRESSION: No acute chest disease. ACT 112: Negative or not required by law. Electronically signed by: Paulino Saha M.D. 12/30/2022 3:02 PM
[2022-12-30] MEDS ORDERED: SODIUM CHLORIDE 0.9% 1,000 ML IV SCH (15:45)
[2022-12-30 15:52] LABS: ALC (manual) 0.68 K/uL (1.2-3.4); ANC (manual) 5.54 K/uL (1.4-6.5); Eosinophils # (manual) 0.14 K/uL (0-0.50); Eosinophils % (manual) 2 %; Hemoglobin 12.7 g/dl (14.0-18.0); Lymphocytes # (manual) 0.68 K/uL (1.2-3.4); Lymphocytes % (manual) 10 %; Mean Corpuscular Hemoglobin 30.4 pg (25.0-34.0); Mean Corpuscular Volume 98.1 fL (80.0-100.0); Mean Platelet Volume 10.1 fL (9.4-12.4); Metamyelocytes # (manual) 0.07 K/uL (0-0); Metamyelocytes % (manual) 1 %; Monocytes # (manual) 0.21 K/uL (0.11-0.59); Monocytes % (manual) 3 %; Myelocytes # (manual) 0.21 K/uL (0-0); Myelocytes % (manual) 3 %; Neutrophils # (manual) 5.54 K/uL (1.40-6.50); Neutrophils % (manual) 81 %; Nucleated RBC # (auto) 0.03 K/uL (0.00-0.12); Nucleated RBC % (auto) 0.4 %; Platelet Count 155 K/uL (130-400); RDW Coefficient of Variation 16.9 % (11.5-14.5); RDW Standard Deviation 60.5 fL (36.4-46.3); Red Blood Count 4.18 M/uL (4.70-6.10); White Blood Count 6.84 K/ul (4.8-10.8)
[2022-12-30 16:24] LABS: Alanine Aminotransferase 12 U/L (7-52); Albumin Level 2.7 gm/dl (3.4-5.0); Alkaline Phosphatase 79 U/L (34-104); Anion Gap 4 (3-11); Aspartate Aminotransferase 21 U/L (13-39); BUN Creatinine Ratio 17.6 (10-20); Bilirubin,Total 0.6 mg/dl (0.2-1.0); Blood Urea Nitrogen 12 mg/dl (6-23); Calcium 8.4 mg/dl (8.6-10.3); Carbon Dioxide 29 mmol/L (21-32); Chloride 107 mmol/L (98-107); Creatinine Clr Calc Pharmacy 107.5 ml/min; Est GFR (Non-African American) 91.5 ml/min; Glucose 90 mg/dl (70-99(Fasting)); Magnesium 1.7 mg/dl (1.7-2.4); Potassium 3.9 mmol/L (3.5-5.1); Sodium 140 mmol/L (136-145)
[2022-12-30] MEDS ORDERED: OPTIRAY 320 125ml IV ONE (18:39)
[2022-12-30] MEDS ORDERED: ACETAMINOPHEN 1,000 MG/100 ML VIAL IV STA (19:21)
--- NOTE | 2022-12-30 19:22 | CT Scan Report ---
Exam(s): CTA CHEST IV Amt: 116 ml optiray 320 EXAM: CT Angiography Chest With Intravenous Contrast CLINICAL HISTORY: Reason for exam: PE. TECHNIQUE: Axial computed tomographic angiography images of the chest with intravenous contrast. CTDI is 14.25 mGy and DLP is 794.99 mGy-cm. Automated exposure control was utilized for the study. A dose lowering technique was utilized adhering to the principles of ALARA. MIP reconstructed images were created and reviewed. COMPARISON: November 14, 2022 FINDINGS: Pulmonary arteries: The pulmonary arterial tree is well opacified with contrast. No pulmonary emboli are identified. Aorta: The aortic arch is mildly calcified but nondilated. There is no aneurysm or dissection. Lungs: The heart is mildly enlarged. There is severe coronary calcification and moderate mitral calcification. There is reflux of contrast into the IVC and hepatic veins. Consider mild CHF. Lungs are well-inflated. There are linear densities in the perihilar regions and areas of platelet consolidation in both lung bases which may represent atelectasis or pneumonia. Pleural space: Unremarkable. No significant effusion. No pneumothorax. Heart: Unremarkable. No cardiomegaly. No significant pericardial effusion. No evidence of RV dysfunction. Bones/joints: There are moderate degenerative changes in the lower thoracic spine. No acute fracture or bone lesion is seen. There are several old healed left rib fractures. No dislocation. Soft tissues: Unremarkable. Lymph nodes: Unremarkable. No enlarged lymph nodes. IMPRESSION: 1. The heart is mildly enlarged. There is severe coronary calcification and moderate mitral calcification. There is reflux of contrast into the IVC and hepatic veins. Consider mild CHF. 2. Lungs are well-inflated. There are linear densities in the perihilar regions and areas of platelet consolidation in both lung bases which may represent atelectasis or pneumonia. 3. The pulmonary arterial tree is well opacified with contrast. No pulmonary emboli are identified. 4. The aortic arch is mildly calcified but nondilated. There is no aneurysm or dissection. Electronically signed by: Sharath Lou MD 12/30/22 19:21 PM
[2022-12-30] MEDS ORDERED: fentaNYL citrate PF 100 MCG/2 ML VIAL IV PRN (19:23)
[2022-12-30] MEDS ORDERED: FUROSEMIDE INJ 20 MG/2 ML VIAL IV ONE (20:00)
--- NOTE | 2022-12-30 20:46 | History & Physical Report ---
Date of Service December 30, 2022 Assessment & Plan (1) Fatigue: Plan: Worsening fatigue and SOB x2 days No leukocytosis; patient afebrile Elevated CRP at 6.64 Elevated BNP at 544 Patient became hypotensive in the ED; Lasix held, fluids and albumin started Hx of MRSA bacteremia Patient was previously on daptomycin x6 weeks (2 days left) Vancomycin consult placed for lung coverage Chest CTA noted consolidation in both lung bases which might represent PNA; cefepime added for anaerobic PNA coverage A.m. CBC, BMP, CRP (2) Hypotension: Plan: BP 95/58 at time of admission Hold Lasix Continue fluids, albumin (3) 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 Liriano Midline placed on 11/26 Continue Zytiga ?No notes regarding palliative consult during last visit Patient reports no pain at present Acetaminophen as needed for pain 1-4 Oxycodone 5 mg p.o. q4h as needed for breakthrough plan (4) DMII (diabetes mellitus, type 2): Plan: Last A1c was 7.7% on 09/24/2022 Glucose 117 on arrival Hold glimepiride SSI with insulin lispro; target BSG goal [id number]/dL, CF 50, no carb ratio BSG ACHS T2DM diet Adjust regimen as needed A.m. A1c (5) Atrial fibrillation: Plan: Rate controlled; not on anticoagulation Hold metoprolol, diltiazem in the setting of hypotension Continuous telemetry monitoring (6) Adrenal insufficiency: Plan: Increase prednisone 5 mg --> 10 mg BID (7) Spinal stenosis: Plan: Hx of lumbar decompression with Dr. Velazco on 11/04/2022 Chronic LBP; stable (8) Urinary tract infection: Plan: Chronic indwelling Aaron UA positive on arrival Hold outpatient levofloxacin; cefepime (as above) to cover Plan Disposition: Obs -admit to MedSurg telemetry DNR/DNI T2DM diet VTE PPx: SCDs History of Present Illness Chief Complaint: Illness Primary Care Provider: Kings Rios DO Willard is a 77-year-old male with PMH of. Patient came from [facility] for worsening fatigue. Patient was reportedly acting "off" this weekend, and reporting that he did not feel well. A large bruise was reported on his back and streaking rash on abdomen. Patient endorses itching on the abdomen this weekend, however he reports that the itching is resolved. When patient asked why he was here, the patient is unable to provide an answer. He reports that they "don't have what [he] needs at [facility]". Patient is A&Ox3. Hypotensive at 95/58 at time of admission. ED course: NSS 1000 mL Acetaminophen 1000 mg Fentanyl 50 mcg Lasix 20 mg ROS: Patient endorses CALLE, increased fatigue, LBP (ongoing), and LE weakness. Patient denies fever, chills, CP, pleuritic CP, SOB, abdominal pain, N/V/D, burning with urination, blood in urine / stool, or numbness/tingling/pain in the legs. Allergies Allergy/AdvReac Type Severity Reaction Status Date / Time cat dander Allergy Severe CAN CAUSE Verified 12/30/22 20:35 ASTHMA ATTACK-itchy eyes, congestion gabapentin AdvReac Intermediate Hallucinati Verified 12/30/22 20:35 ng tramadol AdvReac Intermediate Hallucinati Verified 12/30/22 20:35 ng Home Medications Medication Instructions Recorded Confirmed Type Daptomcin Iv Solution 800 mg IV DAILY 12/30/22 12/30/22 History Heparin Sod Lock Flush 5 ml IV QS 12/30/22 12/30/22 History L.acidop,casei,lactis,rham-B.lact,donn 2 cap PO QAM 12/30/22 12/30/22 History 625 mg (10 billion cell) capsule (Advanced Probiotic) abiraterone 500 mg tablet 1,000 mg PO QAM 12/30/22 12/30/22 History acetaminophen 325 mg tablet 650 mg PO Q6 PRN Fever Or Pain 12/30/22 12/30/22 History (Tylenol) aluminum-mag hydroxide-simethicone 30 ml PO .Q6 PRN .GI UPSET 12/30/22 12/30/22 History 400 mg-400 mg-40 mg/5 mL oral susp (Mylanta Maximum Strength) atorvastatin 20 mg tablet 20 mg PO .HOLD UNTIL 01/02/23 12/30/22 12/30/22 History baclofen 10 mg tablet 10 mg PO TID 12/30/22 12/30/22 History calcium carbonate 500 mg-vitamin 1 tab PO DAILY 12/30/22 12/30/22 History D3 5 mcg (200 unit) tablet (Calcium 500 + D) cyanocobalamin (vitamin B-12) 1,000 mcg PO QAM 12/30/22 12/30/22 History 1,000 mcg tablet (Vitamin B-12) diltiazem HCl 180 mg 180 mg PO QAM 12/30/22 12/30/22 History tablet,extended release 24 hr doxycycline hyclate 100 mg tablet 100 mg PO .Q12HRS UD 12/30/22 12/30/22 History glimepiride 2 mg tablet 2 mg PO QAM 12/30/22 12/30/22 History insulin lispro 100 unit/mL 0 sliding scale dose subcut ACHS 12/30/22 12/30/22 History subcutaneous cartridge (Humalog U-100 Insulin) ipratropium 0.5 mg-albuterol 3 mg 3 ml inhalation .Q2HR PRN 12/30/22 12/30/22 History (2.5 mg base)/3 mL nebulization Shortness Of Breath Or Wheezing soln ipratropium 0.5 mg-albuterol 3 mg 3 ml inhalation .QID FOR 2WEEKS 12/30/22 12/30/22 History (2.5 mg base)/3 mL nebulization soln levofloxacin 750 mg tablet 750 mg PO .DAILY UD 12/30/22 12/30/22 History loratadine 10 mg capsule 10 mg PO DAILY 12/30/22 12/30/22 History menthol 0.44 %-zinc oxide 20.6 % 1 applic topical QS 12/30/22 12/30/22 History topical ointment (Calmoseptine) metoprolol succinate 200 mg 200 mg PO QAM 12/30/22 12/30/22 History tablet,extended release 24 hr multivitamin 1 tab PO DAILY 12/30/22 12/30/22 History naloxone 0.4 mg/mL injection 0.4 mg IV DIRECTED PRN ams 12/30/22 12/30/22 History solution nitroglycerin 0.4 mg sublingual 0.4 mg sublingual DIRECTED PRN 12/30/22 12/30/22 History tablet (Nitrostat) Chest Pain omeprazole 20 mg tablet,delayed 20 mg PO DAILY 12/30/22 12/30/22 History release ondansetron HCl 4 mg tablet 4 mg PO Q6H PRN Nausea 12/30/22 12/30/22 History polyethylene glycol 3350 17 gram 17 g PO QAM 12/30/22 12/30/22 History oral powder packet (Miralax) prednisone 5 mg tablet 5 mg PO BID 12/30/22 12/30/22 History saliva substitute combo no.9 2 ea PO .Q2HRS PRN .DRY MOUTH 12/30/22 12/30/22 History (Biotene Dry Mouth Oral Rinse mouthwash) sertraline 100 mg tablet 100 mg PO DAILY 12/30/22 12/30/22 History sodium chloride 0.9 % (flush) 10 ml IV QS 12/30/22 12/30/22 History triamcinolone acetonide 0.1 % 1 applic topical DIRECTED 12/30/22 12/31/22 History topical ointment Past Med/Surg History Medical History (Updated 12/30/22 @ 22:05 by Orlando Perla PASusanC) Adrenal insufficiency Spinal stenosis Prostate cancer metastatic to bone Atrial fibrillation DX 2019 - FOLLOWS W/ DR. GRANADOS DMII (diabetes mellitus, type 2) IPMN (intraductal papillary mucinous neoplasm) Acute urinary retention Morbid obesity Neurogenic claudication due to lumbar spinal stenosis Balanitis Thrombocytopenia COVID-19 Lumbar spondylosis Ambulatory dysfunction COVID-19 09/2022 requiring hospitalization Fatigue Urinary tract infection Urinary frequency Sacral lesion Prostate nodule Kidney stones Hypercholesterolemia Hydronephrosis of right kidney Androgen-induced osteoporosis Insomnia Resolved Chronic steroid use PROSTATE CANCER Osteoarthritis Ureter injury OBSTRUCTION OF RT URETER 2/2 PROSTATE CA Hyperlipidemia Urinary incontinence Urge incontinence Spinal stenosis Depression Renal insufficiency Urinary retention Resolved Anxiety Psychosis Had hx of depression with psychotic episode - resolved IBS (irritable bowel syndrome) HTN (hypertension) Surgical History History of cataract surgery 2019 - Bilat History of tooth extraction in age 20's History of tonsillectomy as a child History of colonoscopy 2011 (due in 2021) History of prostate biopsy 2014 S/P TURP 2014 Family History Mother , Passed age 60 of sepsis Gallbladder disease Mental disorder Psychological disorder Father , Passed age 89 of sepsis (infected bladder stones) Congestive heart failure Bladder stones Prostate cancer no treatment needed Brother Heart failure Kidney stones Kidney disease Bladder cancer, Onset Age: 75 Myocardial infarction Grandmother (Paternal) , Passed age 93 of old age Breast cancer, Onset Age: 40 double mastectomy and then did well Sister , Passed age 2 of pneumonia No problems noted. Other Has no children Denies family history of Colon cancer Ovarian cancer Social History Smoking Status: Former smoker Tobacco Type: Cigarettes Age Started Using Tobacco: 20; Age Quit Using Tobacco: 39; packs per day: 0.5; Second Hand Exposure: No; Do You Dip or Chew Tobacco: No; Hx Alcohol Use: No Hx Substance Use: No Preferred Language: Welsh Communication Ability: Effective Communication Tools: Other Visual Impairment: Limited Hearing Ability: Normal Stone Layout Marker Required: No Beliefs That Will Affect Care: None marital status: Current Living Situation: [facility] Current Living Situation Comment: LIVES W/ [facility] - current occupational status: retired 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 Feels Safe at Home: Yes Childhood Exposure to Second-Hand Smoke: No Diet: diabetic caffeine: Yes (1 cup of coffee/day ) during the past year weight has: remained stable Dental Care, Regularly: No Physical Activity Frequency: Does not Exercise Seatbelt Use: always Sunscreen Use: Yes Assistive Devices: Cane and Walker Review of Systems Review of Systems: See HPI above Physical Exam Physical Exam: General: no acute distress; non-toxic appearing; well-nourished; cooperative; SPO2 99% on 2L NC HEENT: normocephalic, atraumatic; no scleral icterus; PERRLA w/ EOMs intact; moist mucus membrane; vision and hearing grossly intact Neck: supple; no lymphadenopathy; trachea midline Skin: warm, dry without signs of tenting; no cyanosis; no rashes, bruising, lesions, or erythema noted CV: chest wall NTP; irregularly irregular; S1/S2 normal; no murmurs/rubs/gallops; pulses intact and symmetric at radial, DP, and PT Lungs: no acute respiratory distress; symmetrical chest wall expansion; clear breath sounds across all lung clark w/o adventitious sounds; no wheezing ABD: Soft, NTP; BS present; mild excoriations on the left lower abdomen; no rebound/guarding; no ascites; mild distention secondary to patient's body habitus Back: Patient exhibits difficulty turning in bed; dressing on prior decubitus ulcers without signs of drainage, infection, erythema, swelling MSK: no tics or fasciculations; no edema noted in the LEs b/l Neuro: A&Ox3; normal mood and affect; fluent speech; sensation grossly intact in the LEs B/L Results & Data Results & Data Vital Signs (Past 12 Hours) Vital Signs Pulse Pulse Resp BP BP Pulse Ox O2 Del Method 12/30/22 20:31 100 12/30/22 20:31 95/58 L 12/30/22 20:30 100 12/30/22 20:02 100 12/30/22 20:00 99 12/30/22 19:30 100 12/30/22 19:00 100 12/30/22 18:42 98 12/30/22 18:01 78 27 H 12/30/22 18:01 120/72 12/30/22 18:00 77 27 H 12/30/22 17:31 94/71 L 12/30/22 17:31 71 22 12/30/22 17:30 72 29 H 12/30/22 17:01 79 23 12/30/22 17:01 117/78 12/30/22 17:00 76 22 12/30/22 16:32 125/99 12/30/22 16:32 76 25 H 12/30/22 16:30 75 28 H 12/30/22 16:00 77 26 H 100 12/30/22 15:32 69 16 92 12/30/22 15:32 110/62 12/30/22 15:30 69 21 92 12/30/22 15:28 80 12/30/22 15:25 76 20 99 12/30/22 15:25 87/63 L 12/30/22 15:17 74 25 H 99 12/30/22 15:16 81/65 L 12/30/22 15:01 75 26 H 87/63 L 97 Nasal Cannula 12/30/22 14:32 79 22 111/54 L 99 Nasal Cannula 12/30/22 14:31 75 98 Nasal Cannula O2 Flow Rate 12/30/22 20:31 12/30/22 20:31 12/30/22 20:30 12/30/22 20:02 12/30/22 20:00 12/30/22 19:30 12/30/22 19:00 12/30/22 18:42 12/30/22 18:01 12/30/22 18:01 12/30/22 18:00 12/30/22 17:31 12/30/22 17:31 12/30/22 17:30 12/30/22 17:01 12/30/22 17:01 12/30/22 17:00 12/30/22 16:32 12/30/22 16:32 12/30/22 16:30 12/30/22 16:00 12/30/22 15:32 12/30/22 15:32 12/30/22 15:30 12/30/22 15:28 12/30/22 15:25 12/30/22 15:25 12/30/22 15:17 12/30/22 15:16 12/30/22 15:01 3 12/30/22 14:32 3 12/30/22 14:31 3 Laboratory Results Abnormal lab results 12/30/22 12/30/22 Range/Units 14:59 15:00 RBC 4.18 L (4.70-6.10) M/uL Hgb 12.7 L (14.0-18.0) g/dl Hct 41.0 L (42.0-52.0) % MCHC 31.0 L (32.0-36.0) g/dL RDW Std Deviation 60.5 H (36.4-46.3) fL RDW Coeff of Tramaine 16.9 H (11.5-14.5) % Lymphocytes # (Manual) 0.68 L (1.2-3.4) K/uL Total Abs Lymphocytes 0.68 L (1.2-3.4) K/uL Metamyelocytes # (Man) 0.07 H (0-0) K/uL Myelocytes # (Manual) 0.21 H (0-0) K/uL Calcium 8.4 L (8.6-10.3) mg/dl B-Natriuretic Peptide 544 H (0-100) pg/ml Total Protein 5.0 L (6.0-8.3) gm/dl Albumin 2.7 L (3.4-5.0) gm/dl Diagnostic Findings Chest X-Ray 12/30/22 14:31 XR chest 1V portable CLINICAL HISTORY: Sepsis TECHNIQUE: Single frontal radiograph of the chest was obtained. Comparison: Comparison is made to chest radiograph 11/15/2022 FINDINGS: No lines and tubes are seen. Calcified aortic knob is seen. Reticular interstitial opacities are seen. No evidence of pleural effusion or pneumothorax. IMPRESSION: No acute chest disease. ACT 112: Negative or not required by law. Electronically signed by: Paulino Saha M.D. 12/30/2022 3:02 PM Chest CTA 12/30/22 16:55 Exam(s): CTA CHEST IV Amt: 116 ml optiray 320 EXAM: CT Angiography Chest With Intravenous Contrast CLINICAL HISTORY: Reason for exam: PE. TECHNIQUE: Axial computed tomographic angiography images of the chest with intravenous contrast. CTDI is 14.25 mGy and DLP is 794.99 mGy-cm. Automated exposure control was utilized for the study. A dose lowering technique was utilized adhering to the principles of ALARA. MIP reconstructed images were created and reviewed. COMPARISON: November 14, 2022 FINDINGS: Pulmonary arteries: The pulmonary arterial tree is well opacified with contrast. No pulmonary emboli are identified. Aorta: The aortic arch is mildly calcified but nondilated. There is no aneurysm or dissection. Lungs: The heart is mildly enlarged. There is severe coronary calcification and moderate mitral calcification. There is reflux of contrast into the IVC and hepatic veins. Consider mild CHF. Lungs are well-inflated. There are linear densities in the perihilar regions and areas of platelet consolidation in both lung bases which may represent atelectasis or pneumonia. Pleural space: Unremarkable. No significant effusion. No pneumothorax. Heart: Unremarkable. No cardiomegaly. No significant pericardial effusion. No evidence of RV dysfunction. Bones/joints: There are moderate degenerative changes in the lower thoracic spine. No acute fracture or bone lesion is seen. There are several old healed left rib fractures. No dislocation. Soft tissues: Unremarkable. Lymph nodes: Unremarkable. No enlarged lymph nodes. IMPRESSION: 1. The heart is mildly enlarged. There is severe coronary calcification and moderate mitral calcification. There is reflux of contrast into the IVC and hepatic veins. Consider mild CHF. 2. Lungs are well-inflated. There are linear densities in the perihilar regions and areas of platelet consolidation in both lung bases which may represent atelectasis or pneumonia. 3. The pulmonary arterial tree is well opacified with contrast. No pulmonary emboli are identified. 4. The aortic arch is mildly calcified but nondilated. There is no aneurysm or dissection. Electronically signed by: Sharath Lou MD 12/30/22 19:21 PM Code Status & VTE Plan Code Status DNR/DNI VTE Prophylaxis Plan VTE Prophylaxis will be ordered: Yes Supervising Physician Co-Signing Physician Notes Attending addendum: I have physically seen this patient, have supervised the MAYELA's activities, and agree with the H&P unless as otherwise noted. Assessment and Plan: Fatigue- Noted by nursing to the abdomen worsening fatigue and shortness of breath over the past 2 days Patient did become hypotensive in the ED to low of 81/65 early in her stay Did respond to normal saline bolus and albumin 50 g IV Potential contributing factors including but not limited to: MRSA bacteremia, possible aspiration pneumonia, hypovolemia, progression of General debilitation, metastatic prostate cancer, others Infectious disease- History of MRSA bacteremia 2 days shy of a full 6-week course of daptomycin IV, which will be changed to vancomycin IV due to potential for complicating aspiration pneumonia Stop Levaquin Place on cefepime 2 g IV every 12 hours Diabetes mellitus- Hold glimepiride Placed on Accu-Cheks with NovoLog SSI as noted CODE STATUS: DNR/DNI Remaining orders and notations as noted PG Care Time/CCT Total # of Minutes Spent Total Time Spent with Patient: Total time spent is greater than 50% in coordination of care (as documented) at patient's floor/unit and/or counseling patient: Coding [place] [address] INT INP/OBS CARE 3/75MIN Patient Type Established Medical Decision Making High Complexity Diagnoses Fatigue R53.83 Hypotension I95.9 Prostate cancer metastatic to bone C61; C79.51 DMII (diabetes mellitus, type 2) E11.9 Atrial fibrillation I48.91 Adrenal insufficiency E27.40 Spinal stenosis M48.00 Spinal region: unspecified Urinary tract infection N39.0 (7) Spinal stenosis Spinal region: unspecified Qualified Code(s): M48.00 - Spinal stenosis, site unspecified
[2022-12-30] MEDS ORDERED: ALBUMIN 25% 25 GM/100 ML VIAL IV SCH (21:15)
[2022-12-30] MEDS ORDERED: NITROGLYCERIN SL 0.4 MG/TAB TAB SL PRN (22:32)
[2022-12-30] MEDS ORDERED: NALOXONE HCL 0.4 MG/1 ML VIAL/CARP IV PRN (22:32)
[2022-12-30] MEDS ORDERED: NON-FORMULARY MEDICATION (Saliva Substitute Combo No.9 [Biotene Dry Mouth Oral Rinse] Mout PO PRN (22:32)
[2022-12-30] MEDS ORDERED: levoFLOXacin 750 MG TAB PO SCH (22:32)
[2022-12-30] MEDS ORDERED: VANCOMYCIN CONSULT ACTIVE PRN (22:32)
[2022-12-30] MEDS ORDERED: ALBUT/IPRATROP 3MG/0.5MG NEB 3 ML VIAL INH PRN (22:32)
[2022-12-30] MEDS ORDERED: ALUMINUM/MAGNESIUM/SIMETH (MAALOX MAX) 30 ML UDC PO PRN (22:32)
[2022-12-30] MEDS ORDERED: DEXTROSE 50% 50 ML SYRINGE IV PRN (22:33)
[2022-12-30] MEDS ORDERED: GLUCOSE 40% GEL 15 GM TUBE PO PRN (22:33)
[2022-12-30] MEDS ORDERED: GLUCOSE 10 TAB/TUBE PO PRN (22:33)
[2022-12-30] MEDS ORDERED: CARBOHYDRATES FOR HYPOGLYCEMIA PO PRN (22:33)
[2022-12-30] MEDS ORDERED: GLUCAGON FOR INJ 1 MG VIAL SQ PRN (22:33)
[2022-12-30] MEDS ORDERED: VANCOMYCIN HCL 2,500 MG in SODIUM CHLORIDE 0.9% 500 ML IV ONE (23:00)
[2022-12-30] MEDS: CEFEPIME 2,000 MG in SYRINGE 0 ML IV SCH (23:59)
[2022-12-31] MEDS: MENTHOL-ZINC OXIDE 360 APPLN/120 GM TUBE EXT SCH ×3 (03:19→16:58)
[2022-12-31] MEDS: ALBUMIN 25% 25 GM/100 ML VIAL IV SCH ×2 (04:02→05:50)
[2022-12-31 05:12] LABS: Hematocrit (blood only) 37.6 % (42.0-52.0); Hemoglobin 11.8 g/dl (14.0-18.0); Mean Corpuscular Hemoglobin 30.3 pg (25.0-34.0); Mean Corpuscular Hgb Conc 31.4 g/dL (32.0-36.0); Mean Corpuscular Volume 96.7 fL (80.0-100.0); Mean Platelet Volume 9.9 fL (9.4-12.4); Nucleated RBC # (auto) 0.02 K/uL (0.00-0.12); Nucleated RBC % (auto) 0.3 %; Platelet Count 155 K/uL (130-400); RDW Coefficient of Variation 16.5 % (11.5-14.5); RDW Standard Deviation 58.2 fL (36.4-46.3); Red Blood Count 3.89 M/uL (4.70-6.10); White Blood Count 6.65 K/ul (4.8-10.8)
[2022-12-31 05:24] LABS: Calcium 7.9 mg/dl (8.6-10.3); Potassium 4.2 mmol/L (3.5-5.1)
[2022-12-31 05:30] LABS: BUN Creatinine Ratio 23.2 (10-20); C Reactive Protein 10.64 mg/dl (0-0.5); Creatinine Clr Calc Pharmacy 89.1 ml/min; Est GFR (African American) 98.2 ml/min; Est GFR (Non-African American) 84.7 ml/min
--- NOTE | 2022-12-31 06:06 | Billing Data ---
Date of Service December 31, 2022 Coding Level of Care Code 02399 INT INP/OBS CARE
[2022-12-31 06:51] LABS: ANC (manual) 5.25 K/uL (1.4-6.5); Echinocytes 2+; Lymphocytes % (manual) 9 %; Metamyelocytes % (manual) 3 %; Monocytes % (manual) 3 %; Myelocytes % (manual) 6 %; Neutrophils # (manual) 5.25 K/uL (1.40-6.50); Neutrophils % (manual) 79 %; Polychromasia 1+; Tear Drop Cells 1+
[2022-12-31 07:32] LABS: Estimated Average Glucose 154 mg/dl
[2022-12-31] MEDS: BACLOFEN 10 MG TAB PO SCH ×3 (08:32→21:34)
[2022-12-31] MEDS: CEFEPIME 2,000 MG in SYRINGE 0 ML IV SCH ×2 (08:32→16:49)
[2022-12-31] MEDS: LORATADINE 10 MG TAB PO SCH (08:33)
[2022-12-31] MEDS: VANCOMYCIN HCL 1,250 MG in SODIUM CHLORIDE 0.9% 250 ML IV SCH ×2 (08:33→21:37)
[2022-12-31] MEDS: ADVANCED PROBIOTIC 1250 MG CAPSULE PO SCH (08:33)
[2022-12-31] MEDS: POLYETHYLENE (MIRALAX) 17 GM PACK PO SCH ×2 (08:33→08:38)
[2022-12-31] MEDS: predniSONE 10 MG TABLET PO SCH ×2 (08:33→21:34)
[2022-12-31] MEDS: SERTRALINE HCL 100 MG TABLET PO SCH (08:33)
[2022-12-31] MEDS: PANTOprazole 40 MG TAB PO SCH (08:33)
[2022-12-31] MEDS ORDERED: GLIMEPIRIDE 2 MG TAB PO SCH (09:00)
[2022-12-31] MEDS: INSULIN ASPART PER UNIT CHARGE SQ SCH ×4 (09:55→21:32)
[2022-12-31 10:15] LABS: A calco-baum cmplx NotReported Not Detected (NotDetected); Bact fragilis Not Reported Not Detected (NotDetected); Blood Culture Id Panel See PCR Comment (NotDetected); C auris Not Reported Not Detected (NotDetected); Calbicans Not Reported Not Detected (NotDetected); Candida glabrata Not Reported Not Detected (NotDetected); Candida krusei Not Reported Not Detected (NotDetected); Cneoformans/gatti Not Reported Not Detected (NotDetected); Cparapsilosis Not Reported Not Detected (NotDetected); E cloacae compx Not Reported Not Detected (NotDetected); Efaecalis Not Reported Not Detected (NotDetected); Efaecium Not Reported Not Detected (NotDetected); Enterobacterales Not Reported Not Detected (NotDetected); Escherichia coli Not Reported Not Detected (NotDetected); H influenzae Not Reported Not Detected (NotDetected); K aerogenes Not Reported Not Detected (NotDetected); Koxytoca Not Reported Not Detected (NotDetected); Kpneumoniae grp Not Reported Not Detected (NotDetected); Lmonocyt Not Reported Not Detected (NotDetected); N meningitidis Not Reported Not Detected (NotDetected); P aeruginosa Not Reported Not Detected (NotDetected); Proteus spp Not Reported Not Detected (NotDetected); Salmonella spp Not Reported Not Detected (NotDetected); Smarcescens Not Reported Not Detected (NotDetected); Staph lugdunensis Not Reported Not Detected (NotDetected); Staph spp. Not Reported DETECTED (NotDetected); Staphaureus Not Reported DETECTED (NotDetected); Staphepi Not Reported Not Detected (NotDetected); Staphylococcus spp. DETECTED (NotDetected); Stenmaltophilia Not Reported Not Detected (NotDetected); Strep agal(GrpB) Not Reported Not Detected (NotDetected); Strep pneum Not Reported Not Detected (NotDetected); Strep pyog (GrpA) Not Reported Not Detected (NotDetected); Strep spp Not Reported Not Detected (NotDetected)
[2022-12-31 10:50] LABS: mecAC+MREJ Resistant Gene MRSA DETECTED (NotDetected)
--- NOTE | 2022-12-31 11:14 | Pharmacy Report ---
Pharmacy PK ABX Note - Date of Service December 31, 2022 - Assessment and Plan Assessment 77 year old M receiving vancomycin and cefepime for bacteremia. Blood cultures (+) [facility] in 03/16, biofire (+) MRSA. Patient with recent admission for MRSA bacteremia and spinal abscess and was discharged on daptomycin through 01/01. ID consulted. Day #1 of antimicrobial therapy. Plan Vancomycin * Loading dose: 2500 mg IV x 1 * Maintenance dose: 1250 mg IV every 12 hours * Regimen is predicted to achieve target AUC/AZAEL of 400-600 mg/L.hr * Random level tomorrow AM given dosing on more aggressive side and body habitus at risk for accumulation Pharmacy will continue to follow and will adjust dose/frequency as necessary. Thank you. Pharmacy has transitioned to AUC monitoring for vancomycin. AUC/AZAEL is the preferred PK/PD target and is associated with decreased risk of nephrotoxicity compared to traditional trough targets.
--- NOTE | 2022-12-31 11:30 | Hospitalist Progress Note ---
Date of Service December 31, 2022 Assessment & Plan (1) Bacteremia: Plan: Patient recently had MRSA bacteremia and is just 2 days a week from completing a 6-week course of daptomycin However presents to the hospital with worsening fatigue and poor appetite. Blood cultures drawn yesterday growing gram-positive's in clusters Source could be his lumbar area due to recent lumbar abscess and removal of hardware or could be due to his PICC line through which she gets his daptomycin Currently on vancomycin and cefepime Will consult infectious diseases (2) Fatigue: Plan: Worsening fatigue and SOB x2 days No leukocytosis; patient afebrile Elevated CRP at 6.64 Elevated BNP at 544 Patient became hypotensive in the ED; Lasix held, fluids and albumin started Hx of MRSA bacteremia Repeat blood cultures today growing gram-positive in clusters Patient was previously on daptomycin x6 weeks (2 days left) Chest CTA noted consolidation in both lung bases which might represent PNA; cefepime added for anaerobic PNA coverage Currently on Vanco and cefepime A.m. CBC, BMP, CRP (3) Hypotension: Plan: Now resolved (4) 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 Liriano Midline placed on 11/26 Continue Zytiga ?No notes regarding palliative consult during last visit Patient reports no pain at present Acetaminophen as needed for pain 1-4 Oxycodone 5 mg p.o. q4h as needed for breakthrough plan (5) DMII (diabetes mellitus, type 2): Plan: Last A1c was 7.7% on 09/24/2022 Glucose 117 on arrival Hold glimepiride SSI with insulin lispro; target BSG goal 518842tv/dL, CF 50, no carb ratio BSG ACHS T2DM diet Adjust regimen as needed A.m. A1c (6) Atrial fibrillation: Plan: Rate controlled; not on anticoagulation Hold metoprolol, diltiazem in the setting of hypotension Continuous telemetry monitoring (7) Adrenal insufficiency: Plan: Increase prednisone 5 mg --> 10 mg BID (8) Spinal stenosis: Plan: Hx of lumbar decompression with Dr. Velazco on 11/04/2022 Chronic LBP; stable (9) Urinary tract infection: Plan: Chronic indwelling Aaron UA positive on arrival Hold outpatient levofloxacin; cefepime (as above) to cover (10) Physical deconditioning: Plan: Patient has been essentially bedbound since his lumbar surgery He is physically deconditioned PT OT Plan Disposition: Obs -admit to [facility] telemetry DNR/DNI T2DM diet VTE PPx: SCDs Admission and Anticipated Discharge Date Admission Date: December 30, 2022 Subjective Patient seen and examined today, son by the bedside, worrying that his diet is getting worse Patient states has been having worsening fatigue over the past several days. Review of Systems Review of Systems: All systems reviewed are negative, apart from the ones contained in the history. Physical Exam Physical Exam: The patient is awake, alert and oriented 3, well developed and well nourished, normocephalic and atraumatic, lying in bed and in no acute distress. HEENT--PERRL, EOMI, mucous membranes and oropharynx mildly dry Neck--supple. No JVD. No bruits. Thyroid normal, trachea midline, no adenopathy. Heart--normal S1 and S2. No murmurs, rubs or gallops. Lungs--clear bilaterally, no respiratory distress, no accessory muscle use. Abdomen--normal bowel sounds and soft. Mild epigastric and left sided abdominal pain Extremities--no cyanosis or clubbing. No edema. Dermatologic--normal skin turgor, normal color, no abnormal lymph nodes, no rash. Neurologic--cranial nerves II through XII grossly intact. Rheumatologic--normal range of motion. Psychiatric--normal affect. Results & Data Results & Data Vital Signs (Past 12 Hours) Vital Signs Pulse Pulse Resp BP BP Pulse Ox O2 Del Method 12/31/22 11:01 88 22 97 12/31/22 11:01 140/93 12/31/22 11:00 87 27 H 99 12/31/22 10:50 88 22 98 12/31/22 07:30 90 24 97 12/31/22 07:01 136/91 12/31/22 07:01 96 H 24 97 12/31/22 07:00 99 H 26 H 96 12/31/22 06:58 93 H 12/31/22 06:35 93 H 94/64 L 94 Nasal Cannula 12/31/22 04:16 84 12/31/22 02:27 91 H 24 98/68 L 93 Nasal Cannula 12/31/22 00:00 86 14 95/60 L 96 Nasal Cannula O2 Flow Rate 12/31/22 11:01 12/31/22 11:01 12/31/22 11:00 12/31/22 10:50 12/31/22 07:30 12/31/22 07:01 12/31/22 07:01 12/31/22 07:00 12/31/22 06:58 12/31/22 06:35 2 12/31/22 04:16 12/31/22 02:27 3 12/31/22 00:00 3 PG Care Time/CCT Total # of Minutes Spent Total Time Spent with Patient: Total time spent is greater than 50% in coordination of care (as documented) at patient's floor/unit and/or counseling patient: Coding Level of Care Code 50823 SUB INP/OBS CARE 2/35MIN Diagnoses Bacteremia R78.81 Fatigue R53.83 Hypotension I95.9 Prostate cancer metastatic to bone C61; C79.51 DMII (diabetes mellitus, type 2) E11.9 Atrial fibrillation I48.91 Adrenal insufficiency E27.40 Spinal stenosis M48.00 Spinal region: unspecified Urinary tract infection N39.0 Physical deconditioning R53.81 Time Spent (min) 35 (8) Spinal stenosis Spinal region: unspecified Qualified Code(s): M48.00 - Spinal stenosis, site unspecified
--- NOTE | 2022-12-31 12:15 | Magnetic Resonance Report ---
LUMBAR SPINE MRI HISTORY: Follow-up laminectomy fluid collection. follow up of abscess TECHNIQUE: Multiplanar multisequence MRI of the lumbar spine was performed without the use of contras t. COMPARISON: Lumbar spine MRI 11/19/2022. FINDINGS: For the purpose of the report the L5-S1 disc space will be located on axial image 32 of 42. Postoperative changes again noted consistent with L3-S1 posterior decompression and fusion with pedic le screws and rods. There are associated disc spacers at these levels. Increased T2 signal within the disc space levels are similar to the prior study. No definite endplate erosive changes or signal abn ormality to suggest a discitis/osteomyelitis at this time. There is minimal paravertebral edema withi n the lower lumbar spine which is similar to the prior study. The conus terminates at the L1 level. T he loculated fluid collection at the laminectomy sites has slightly decreased in size. This measures 8.7 x 4.2 x 8.0 cm, previously measuring 11.5 x 4.5 x 12.8 cm. This contains layering debris/blood pr oducts. No gas identified within the fluid collection. There is mass effect on the posterior thecal s ac from this large fluid collection again noted. This has slightly improved. There is persistent seinna re central canal narrowing at the L4-L5 levels with the thecal sac demonstrating a minimal diameter o f 4 mm at the L5 level due to the mass effect. The subdural multiloculated fluid collection seen on t he prior study within the lower thoracic and upper lumbar spine has also improved. The posterior comp onent has essentially resolved. There is a small anterior component of the subdural collection remain ing at the T12-L1 level which measures 3 mm in thickness. The T1 and T2 hyperintense foci within the lower sacrum or partially visualized on this study. This is better appreciated on the prior CT examin ation. Paraspinal and bilateral psoas intramuscular edema persists. IMPRESSION: 1. Interval decrease in size in the large fluid collection at the laminectomy sites as described abov e. The mass effect along the posterior thecal sac has slightly improved but there is persistent sever e central canal narrowing at the L4 and L5 levels. 2. Small subdural fluid collections within the lower thoracic and upper lumbar spine have also improv ed in the interval. There is a small residual anterior subdural collection remaining at the T12-L1 le melania. 3. Paraspinal and bilateral psoas intramuscular edema persists. 4. Increased fluid signal within the L3-L4, L4-L5, and L5-S1 disc space levels again noted. This is s imilar to the prior study. No endplate erosive changes to suggest an osteomyelitis at this time. ACT 112: Negative or not required by law. Electronically signed by: Orlando Houston M.D. 12/31/2022 12:14 PM
--- NOTE | 2022-12-31 12:41 | Infectious Disease Consult ---
Date of Consultation December 31, 2022 Assessment & Plan (1) MRSA bacteremia: (2) 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: (3) Fixation hardware in spine: Plan Willard Walker is a 77-year-old man with history of prostate cancer with mets to spine, spinal stenosis s/p lumbar decompression with hardware on 11/04/22, recent admission 11/14-11/27/22 [facility] for MRSA bacteremia and epidural abscess (on 6-week course of daptomycin with intended EOT 01/01/23), T2DM, who presents to [facility] from [facility] on 12/30/22 for worsening fatigue, with BCx + GPCs. ID is consulted for bacteremia. Concern that pts GPCs in clusters may represent recurrent MRSA bacteremia in the setting of ongoing spinal hardware infection. 12/31 L-spine MRI with decreased size of large fluid collection at laminectomy sites, improving subdural fluid collections in lower thoracic and upper lumbar spine, and increased signal at L3-L4, L4-L5, and L5-S1 disc space levels. These findings are overall improved though still with collections and thus source control not achieved. If this is indeed MRSA again, this would be worrisome that it occurred while still on daptomycin therapy (more likely due to source control rather than antibiotic failure). Would repeat BCx to confirm clearance. Would obtain TTE. Would continue to examine closely for joint pain and other localizing s/sx of spread. Could also consider extending MRI to total spine/sacral region. Would continue vancomycin f or now. ID Problem List: 1.GPC bacteremia 2.History of MRSA bacteremia, MRSA epidural abscess, MRSA spinal hardware infection, MRSA post-operative surgical wound 3.Lumbar fixation hardware in place Recommendations: - Continue vancomycin (dosed per pharmacy protocol) - Can stop cefepime - F/u BCx for speciation and susceptibilities - Repeat BCx until clear x48h (ordered for 12/31) - Obtain TTE - Consider extending MRI to total spine/sacral region. ID will continue to follow. Mckenzie Christensen MD, MHS Infectious Diseases [facility] Connect direct line: [phone] Consultation Information Consultation was provided via telemedicine using two-way real-time interactive telecommunication between the patient and the telemedicine provider. For the duration of the visit, the provider was performing the assessment from a different facility than the patient. This includesuse of bluetooth stethoscope forauscultationperformed by the telepresenter that the telemedicine provider can hear if described in the physical exam. Amphibious Operations Officer contact information: Please call [facility] Connect Call Center . (Phone Number For Physician Use Only) After establishing a telemedicine visit, patient was: Patient was verified with two unique identifiers, Patient/authorized rep acknowledged consent and understanding and Gave permission to continue telehealth session Time Spent with Patient: Initial => 75 min History of Present Illness Reason for Consultation: GPC bacteremia, recent MRSA bacteremia from spinal hardware infection Attending Physician: Saud Mercedes MD History of Present Illness Willard Walker is a 77-year-old man with history of prostate cancer with mets to spine, spinal stenosis s/p lumbar decompression with hardware on 11/04/22, recent admission 11/14-11/27/22 [facility] for MRSA bacteremia and epidural abscess (on 6-week course of daptomycin with intended EOT 01/01/23), T2DM, who presents to [facility] from [facility] on 12/30/22 for worsening fatigue, with BCx + GPCs. ID is consulted for bacteremia. Recent admissions: - 10/24-11/12/22 [facility] for COVID, LLE DVT, visual hallucinations (possibly secondary to COVID), spinal stenosis, and generalized weakness - 11/14-11/27/22 [facility] with severe back pain and lethargy, found to have MRSA bacteremia and epidural abscess. He was seen by ID that admission. The patient had a surgical wound on his back at the site of his prior drain, which was cultured and grew MRSA. MRI showed a 4.8 x 11.5 x 4.5 cm laminectomy bed fluid collection adjacent to the hardware with significant mass effect upon the thecal sac and results in moderate to severe central canal stenosis. There is also multiloculated subdural collections within the lower thoracic and upper lumbar canals and increased fluid signal within the L3-L4 and L4-L5 disc spaces ( postsurgical vs Discitis) could appear similar. However, an adjacent endplates are intact without evidence for acute osteomyelitis, also found to have non- specific edema within the b/l psoas. He underwent I&D of Abscess in epidural space of L2-L5 on 11/20 which grew MRSA. TTE without vegetations. He was recommended a 6-week course of daptomycin with intended EOT 01/01/23, with the consideration of 1 year to lifelong PO suppression with doxycycline 100 mg PO BID. Most recently, while at his facility, he was reportedly acting off and had worsening fatigue and malaise. He was also noted to have a large ecchymosis on his back and streaking rash on his abdomen which was itchy and the patient reportedly scratched. He was unable to provide history of why he was in the hospital when he was first admitted. He has reported headache, chronic lower back pain, and BLE weakness. Patient denies fever, chills, chest pain, SOB, abdominal pain, N/V/D, dysuria. He was still continuing IV antibiotics (daptomycin) as prior. He is not aware of any missed doses of antibiotics while at the facility. Per EMS, the patient was also recently given levofloxacin and an antifungal (?fluconazole) while at the facility. Note 12/15 wound cx: Klebsiella pnumoniae, Enterobacter cloaecae, Proteus mirabilis and 12/11 UCx: C. albicans/dubliniensis, C. glabrata In the ED, he was noted to be hypotensive to 95/58. WBC 10.52. Procal 0.23. BCx were drawn, thus far growing GPCs. He has been on vancomycin and cefepime. 12/31 L-spine MRI with decreased size of large fluid collection at laminectomy sites, impoving subdural fluid collections in lower thoracic and upper lumbar spine, and increased signal at L3-L4, L4-L5, and L5-S1 disc space levels. At the time of evaluation, the patient denies headaches, back pain, and joint pain. He reports slight dyspnea and is currently on 2L of O2. Allergies Allergy/AdvReac Type Severity Reaction Status Date / Time cat dander Allergy Severe CAN CAUSE Verified 12/30/22 20:35 ASTHMA ATTACK-itchy eyes, congestion gabapentin AdvReac Intermediate Hallucinati Verified 12/30/22 20:35 ng tramadol AdvReac Intermediate Hallucinati Verified 12/30/22 20:35 ng Home Medications Medication Instructions Recorded Confirmed Type Daptomcin Iv Solution 800 mg IV DAILY 12/30/22 12/30/22 History Heparin Sod Lock Flush 5 ml IV QS 12/30/22 12/30/22 History L.acidop,casei,lactis,rham-B.lact,donn 2 cap PO QAM 12/30/22 12/30/22 History 625 mg (10 billion cell) capsule (Advanced Probiotic) abiraterone 500 mg tablet 1,000 mg PO QAM 12/30/22 12/30/22 History acetaminophen 325 mg tablet 650 mg PO Q6 PRN Fever Or Pain 12/30/22 12/30/22 History (Tylenol) aluminum-mag hydroxide-simethicone 30 ml PO .Q6 PRN .GI UPSET 12/30/22 12/30/22 History 400 mg-400 mg-40 mg/5 mL oral susp (Mylanta Maximum Strength) atorvastatin 20 mg tablet 20 mg PO .HOLD UNTIL 01/02/23 12/30/22 12/30/22 History baclofen 10 mg tablet 10 mg PO TID 12/30/22 12/30/22 History calcium carbonate 500 mg-vitamin 1 tab PO DAILY 12/30/22 12/30/22 History D3 5 mcg (200 unit) tablet (Calcium 500 + D) cyanocobalamin (vitamin B-12) 1,000 mcg PO QAM 12/30/22 12/30/22 History 1,000 mcg tablet (Vitamin B-12) diltiazem HCl 180 mg 180 mg PO QAM 12/30/22 12/30/22 History tablet,extended release 24 hr doxycycline hyclate 100 mg tablet 100 mg PO .Q12HRS UD 12/30/22 12/30/22 History glimepiride 2 mg tablet 2 mg PO QAM 12/30/22 12/30/22 History insulin lispro 100 unit/mL 0 sliding scale dose subcut ACHS 12/30/22 12/30/22 History subcutaneous cartridge (Humalog U-100 Insulin) ipratropium 0.5 mg-albuterol 3 mg 3 ml inhalation .Q2HR PRN 12/30/22 12/30/22 History (2.5 mg base)/3 mL nebulization Shortness Of Breath Or Wheezing soln ipratropium 0.5 mg-albuterol 3 mg 3 ml inhalation .QID FOR 2WEEKS 12/30/22 12/30/22 History (2.5 mg base)/3 mL nebulization soln levofloxacin 750 mg tablet 750 mg PO .DAILY UD 12/30/22 12/30/22 History loratadine 10 mg capsule 10 mg PO DAILY 12/30/22 12/30/22 History menthol 0.44 %-zinc oxide 20.6 % 1 applic topical QS 12/30/22 12/30/22 History topical ointment (Calmoseptine) metoprolol succinate 200 mg 200 mg PO QAM 12/30/22 12/30/22 History tablet,extended release 24 hr multivitamin 1 tab PO DAILY 12/30/22 12/30/22 History naloxone 0.4 mg/mL injection 0.4 mg IV DIRECTED PRN ams 12/30/22 12/30/22 History solution nitroglycerin 0.4 mg sublingual 0.4 mg sublingual DIRECTED PRN 12/30/22 12/30/22 History tablet (Nitrostat) Chest Pain omeprazole 20 mg tablet,delayed 20 mg PO DAILY 12/30/22 12/30/22 History release ondansetron HCl 4 mg tablet 4 mg PO Q6H PRN Nausea 12/30/22 12/30/22 History polyethylene glycol 3350 17 gram 17 g PO QAM 12/30/22 12/30/22 History oral powder packet (Miralax) prednisone 5 mg tablet 5 mg PO BID 12/30/22 12/30/22 History saliva substitute combo no.9 2 ea PO .Q2HRS PRN .DRY MOUTH 12/30/22 12/30/22 History (Biotene Dry Mouth Oral Rinse mouthwash) sertraline 100 mg tablet 100 mg PO DAILY 12/30/22 12/30/22 History sodium chloride 0.9 % (flush) 10 ml IV QS 12/30/22 12/30/22 History triamcinolone acetonide 0.1 % 1 applic topical DIRECTED 12/30/22 12/31/22 History topical ointment Patient History Medical History (Updated 12/31/22 @ 18:39 by Mckenzie Christensen MD) Adrenal insufficiency Spinal stenosis Prostate cancer metastatic to bone Atrial fibrillation DX 2019 - FOLLOWS W/ DR. GRANADOS DMII (diabetes mellitus, type 2) IPMN (intraductal papillary mucinous neoplasm) Acute urinary retention Morbid obesity Neurogenic claudication due to lumbar spinal stenosis Balanitis Thrombocytopenia COVID-19 Lumbar spondylosis Ambulatory dysfunction COVID-19 09/2022 requiring hospitalization Fatigue Urinary tract infection Urinary frequency Sacral lesion Prostate nodule Kidney stones Hypercholesterolemia Hydronephrosis of right kidney Androgen-induced osteoporosis Insomnia Resolved Chronic steroid use PROSTATE CANCER Osteoarthritis Ureter injury OBSTRUCTION OF RT URETER 2/2 PROSTATE CA Hyperlipidemia Urinary incontinence Urge incontinence Spinal stenosis Depression Renal insufficiency Urinary retention Resolved Anxiety Psychosis Had hx of depression with psychotic episode - resolved IBS (irritable bowel syndrome) HTN (hypertension) Surgical History History of cataract surgery 2018 - Bilat History of tooth extraction in age 20's History of tonsillectomy as a child History of colonoscopy 2011 (due in 2021) History of prostate biopsy 2014 S/P TURP 2014 Family History Mother , Passed age 60 of sepsis Gallbladder disease Mental disorder Psychological disorder Father , Passed age 89 of sepsis (infected bladder stones) Congestive heart failure Bladder stones Prostate cancer no treatment needed Brother Heart failure Kidney stones Kidney disease Bladder cancer, Onset Age: 75 Myocardial infarction Grandmother (Paternal) , Passed age 93 of old age Breast cancer, Onset Age: 40 double mastectomy and then did well Sister , Passed age 2 of pneumonia No problems noted. Other Has no children Denies family history of Colon cancer Ovarian cancer Social History Smoking Status: Former smoker Tobacco Type: Cigarettes Age Started Using Tobacco: 20; Age Quit Using Tobacco: 39; packs per day: 0.5; Second Hand Exposure: No; Do You Dip or Chew Tobacco: No; Hx Alcohol Use: Yes Alcohol Intake Frequency: Monthly or Less Hx Substance Use: No Preferred Language: Kazakh Communication Ability: Effective Communication Tools: Other Visual Impairment: Limited Hearing Ability: Normal Net Lead Developer Required: No Beliefs That Will Affect Care: None marital status: Current Living Situation: Spouse Current Living Situation Comment: LIVES W/ OLIVER - current occupational status: retired 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 General: Well-appearing, no acute distress. Wearing 2L O2. HEENT: Conjunctivae non-injected, sclerae anicteric, MMM, OP clear. Neck: No LAD CV: Unable to tele-auscultate due to technical difficulties; per telepresenter: RRR, normal S1/S2; no murmurs, rubs, or gallops. Resp: Unable to tele-auscultate due to technical difficulties; per telepresenter: R-sided expiratory wheezes otherwise CTAB. Respirations nonlabored. Abd: Soft, nontender, nondistended. Normal bowel sounds throughout. No masses or organomegaly. Back: No tenderness to palpation along spine. Pinhole wound with dressing in place c/d/i. Ext: Warm and well-perfused, no edema. No joint warmth or effusions noted. LLE with dark patch on lateral aspect. L forearm with ecchymosis, edema, and flaking. Skin: No rashes or lesions. Shallow erosion on R arm. PICC c/d/i. Neuro: Alert & interactive. Grossly non-focal. Psych: Pleasant, appropriate. Results & Data Vital Signs (Past 12 Hours) Vital Signs Pulse Pulse Resp BP BP Pulse Ox O2 Del Method 12/31/22 12:30 79 20 100 12/31/22 12:21 90 28 H 98 12/31/22 12:21 131/80 12/31/22 12:16 76 H 12/31/22 11:01 88 22 97 12/31/22 11:01 140/93 12/31/22 11:00 87 27 H 99 12/31/22 10:50 88 22 98 12/31/22 07:30 90 24 97 12/31/22 07:01 136/91 12/31/22 07:01 96 H 24 97 12/31/22 07:00 99 H 26 H 96 12/31/22 06:58 93 H 12/31/22 06:35 93 H 94/64 L 94 Nasal Cannula 12/31/22 04:16 84 12/31/22 02:27 91 H 24 98/68 L 93 Nasal Cannula O2 Flow Rate 12/31/22 12:30 2 12/31/22 12:21 12/31/22 12:21 12/31/22 12:16 12/31/22 11:01 12/31/22 11:01 12/31/22 11:00 12/31/22 10:50 12/31/22 07:30 12/31/22 07:01 12/31/22 07:01 12/31/22 07:00 12/31/22 06:58 12/31/22 06:35 2 12/31/22 04:16 12/31/22 02:27 3 Diagnostic Findings Diagnostics: 12/31/22 L-spine MRI 1. Interval decrease in size in the large fluid collection at the laminectomy sites as described above. The mass effect along the posterior thecal sac has slightly improved but there is persistent severe central canal narrowing at the L4 and L5 levels. 2. Small subdural fluid collections within the lower thoracic and upper lumbar spine have also improved in the interval. There is a small residual anterior subdural collection remaining at the T12-L1 level. 3. Paraspinal and bilateral psoas intramuscular edema persists. 4. Increased fluid signal within the L3-L4, L4-L5, and L5-S1 disc space levels again noted. This is similar to the prior study. No endplate erosive changes to suggest an osteomyelitis at this time. 12/30/22 CTA chest 1. The heart is mildly enlarged. There is severe coronary calcification and moderate mitral calcification. There is reflux of contrast into the IVC and hepatic veins. Consider mild CHF. 2. Lungs are well-inflated. There are linear densities in the perihilar regions and areas of platelet consolidation in both lung bases which may represent atelectasis or pneumonia. 3. The pulmonary arterial tree is well opacified with contrast. No pulmonary emboli are identified. 4. The aortic arch is mildly calcified but nondilated. There is no aneurysm or dissection. Micro: 12/31 UCx: p 12/31 BCx x2: p 12/30 BCx x2: 2 of 4 GPCs in clusters 12/30 UCx: yeast (not C. albicans/dub) Prior 12/15 wound cx: Klebsiella pnumoniae, Enterobacter cloaecae, Proteus mirabilis 12/11 UCx: C. albicans/dubliniensis, C. glabrata 11/20/22 OR lumbar epidural abscess ; g/s GPC, culture MRSA (S vanc,dapt, tet) BC 11/14 02/13 bottle MRSA (S vanc, dapt, tet) WC 11/14 MRSA BC 11/16 NGTD Antibiotic Summary: vancomycin (12/30-present) cefepime (12/30-present) Prior Daptomycin 11/14- 12/31/22 Recent levofloxacin JAVA PROJECT MANAGER Recent antifungal (?fluconazole) JAVA PROJECT MANAGER
[2022-12-31] MEDS: ABIRATERONE ACETATE PO SCH (13:10)
[2022-12-31] MEDS: HEPARIN SOD 5,000 UNIT/0.5 ML VIAL SQ SCH ×2 (14:14→21:35)
[2022-12-31] MEDS: ACETAMINOPHEN 325 MG TAB PO PRN (19:38)
[2022-12-31] MEDS: oxyCODONE HCL IR 5 MG TAB (IMMEDIATE RELEASE) PO PRN (21:33)
[2023-01-01] MEDS: CEFEPIME 2,000 MG in SYRINGE 0 ML IV SCH ×4 (00:26→17:08)
[2023-01-01] MEDS: MENTHOL-ZINC OXIDE 360 APPLN/120 GM TUBE EXT SCH ×3 (00:26→16:57)
[2023-01-01] MEDS: ACETAMINOPHEN 325 MG TAB PO PRN ×2 (04:42→18:16)
[2023-01-01 06:20] LABS: Hematocrit (blood only) 36.4 % (42.0-52.0); Hemoglobin 11.2 g/dl (14.0-18.0); Mean Corpuscular Hemoglobin 30.2 pg (25.0-34.0); Mean Corpuscular Hgb Conc 30.8 g/dL (32.0-36.0); Mean Corpuscular Volume 98.1 fL (80.0-100.0); Mean Platelet Volume 9.9 fL (9.4-12.4); Platelet Count 148 K/uL (130-400); RDW Coefficient of Variation 16.9 % (11.5-14.5); Red Blood Count 3.71 M/uL (4.70-6.10)
[2023-01-01 06:31] LABS: BUN Creatinine Ratio 33.8 (10-20); Creatinine Clr Calc Pharmacy 94.9 ml/min; Est GFR (African American) 100.7 ml/min; Est GFR (Non-African American) 86.9 ml/min; Potassium 3.4 mmol/L (3.5-5.1)
[2023-01-01 06:43] LABS: ANC (manual) 4.45 K/uL (1.4-6.5); Basophils # (manual) 0.06 K/uL (0-0.2); Basophils % (manual) 1 %; Eosinophils # (manual) 0.06 K/uL (0-0.50); Eosinophils % (manual) 1 %; Lymphocytes % (manual) 7 %; Metamyelocytes # (manual) 0.17 K/uL (0-0); Metamyelocytes % (manual) 3 %; Monocytes # (manual) 0.57 K/uL (0.11-0.59); Monocytes % (manual) 10 %; Neutrophils # (manual) 4.45 K/uL (1.40-6.50); Neutrophils % (manual) 78 %; Polychromasia 1+
[2023-01-01] MEDS: HEPARIN SOD 5,000 UNIT/0.5 ML VIAL SQ SCH ×3 (08:05→22:14)
[2023-01-01] MEDS: POLYETHYLENE (MIRALAX) 17 GM PACK PO SCH (08:14)
--- NOTE | 2023-01-01 08:38 | Pharmacy Report ---
Pharmacy PK ABX Note - Date of Service January 01, 2023 - Assessment and Plan Assessment 77 year old M receiving vancomycin and cefepime for bacteremia. Blood cultures (+) [facility] in 03/16, biofire (+) MRSA. Patient with recent admission for MRSA bacteremia and spinal abscess and was discharged on daptomycin through 01/01. ID consulted. Day #2 of antimicrobial therapy. Plan Vancomycin * Loading dose: 2500 mg IV x 1 * Maintenance dose: 1250 mg IV every 12 hours * Level this morning was 21.1 mg/L indicating a supratherapeutic level with above dose. * Reduce to 1000 mg IV q12. * Regimen is predicted to achieve target AUC/AZAEL of 400-600 mg/L.hr * Random level Friday AM Pharmacy will continue to follow and will adjust dose/frequency as necessary. Thank you. Pharmacy has transitioned to AUC monitoring for vancomycin. AUC/AZAEL is the pref erred PK/PD target and is associated with decreased risk of nephrotoxicity compared to traditional trough targets.
[2023-01-01] MEDS ORDERED: LACTATED RINGER'S 1,000 ML IV SCH (09:15)
[2023-01-01] MEDS: INSULIN ASPART PER UNIT CHARGE SQ SCH ×4 (09:27→22:14)
[2023-01-01] MEDS ORDERED: fentaNYL citrate PF 100 MCG/2 ML VIAL ONE ×2 (09:34→12:22)
[2023-01-01] MEDS ORDERED: ROCURONIUM BROMIDE 10 MG/ML 5 ML VIAL IV ONE (09:34)
[2023-01-01] MEDS ORDERED: ONDANSETRON INJ 2 MG/ML 2 ML VIAL ONE (09:34)
[2023-01-01] MEDS ORDERED: PROPOFOL IV EMULSION 10 MG/ML 20 ML VIAL IV ONE (09:34)
[2023-01-01] MEDS ORDERED: SUGAMMADEX SODIUM 200 MG/2 ML VIAL IV ONE (09:35)
--- NOTE | 2023-01-01 09:37 | Anesthesiology Consultation ---
Date of Service January 01, 2023 Assessment & Plan Chart Review Chart Review: Acceptable Risk for Surgery and Patient NOT seen in Pre Admission Testing Consults Requested none ASA ASA4 Proposed Anesthesia Anesthesia Type: General Risk / Benefits Reviewed With: PT / POA / Parent / Guardian, Accepts Plan and Informed Consent Obtained History Surgery Operation Date: 01/01/23 15:20 Proposed Procedures p Incision and Drainage Lumbar - Benedict Velazco, Height/Weight Height: 5 ft 6 in Weight: 116.5 kg Allergies Allergy/AdvReac Type Severity Reaction Status Date / Time cat dander Allergy Severe CAN CAUSE Verified 12/30/22 20:35 ASTHMA ATTACK-itchy eyes, congestion gabapentin AdvReac Intermediate Hallucinati Verified 12/30/22 20:35 ng tramadol AdvReac Intermediate Hallucinati Verified 12/30/22 20:35 ng Medications Home Medications Medication Instructions Recorded Confirmed Last Taken Daptomcin Iv Solution 800 mg IV DAILY 12/30/22 12/30/22 12/29/22 13:00 Heparin Sod Lock Flush 5 ml IV QS 12/30/22 12/30/22 Unknown L.acidop,casei,lactis,rham-B.lact,donn 2 cap PO QAM 12/30/22 12/30/22 Unknown 625 mg (10 billion cell) capsule (Advanced Probiotic) abiraterone 500 mg tablet 1,000 mg PO QAM 12/30/22 12/30/22 Unknown acetaminophen 325 mg tablet 650 mg PO Q6 PRN Fever Or Pain 12/30/22 12/30/22 Unknown (Tylenol) aluminum-mag hydroxide-simethicone 30 ml PO .Q6 PRN .GI UPSET 12/30/22 12/30/22 Unknown 400 mg-400 mg-40 mg/5 mL oral susp (Mylanta Maximum Strength) atorvastatin 20 mg tablet 20 mg PO .HOLD UNTIL 01/02/23 12/30/22 12/30/22 Unknown baclofen 10 mg tablet 10 mg PO TID 12/30/22 12/30/22 Unknown calcium carbonate 500 mg-vitamin 1 tab PO DAILY 12/30/22 12/30/22 Unknown D3 5 mcg (200 unit) tablet (Calcium 500 + D) cyanocobalamin (vitamin B-12) 1,000 mcg PO QAM 12/30/22 12/30/22 Unknown 1,000 mcg tablet (Vitamin B-12) diltiazem HCl 180 mg 180 mg PO QAM 12/30/22 12/30/22 Unknown tablet,extended release 24 hr doxycycline hyclate 100 mg tablet 100 mg PO .Q12HRS UD 12/30/22 12/30/22 Unknown glimepiride 2 mg tablet 2 mg PO QAM 12/30/22 12/30/22 Unknown insulin lispro 100 unit/mL 0 sliding scale dose subcut ACHS 12/30/22 12/30/22 Unknown subcutaneous cartridge (Humalog U-100 Insulin) ipratropium 0.5 mg-albuterol 3 mg 3 ml inhalation .Q2HR PRN 12/30/22 12/30/22 Unknown (2.5 mg base)/3 mL nebulization Shortness Of Breath Or Wheezing soln ipratropium 0.5 mg-albuterol 3 mg 3 ml inhalation .QID FOR 2WEEKS 12/30/22 12/30/22 Unknown (2.5 mg base)/3 mL nebulization soln levofloxacin 750 mg tablet 750 mg PO .DAILY UD 12/30/22 12/30/22 12/30/22 12:30 loratadine 10 mg capsule 10 mg PO DAILY 12/30/22 12/30/22 Unknown menthol 0.44 %-zinc oxide 20.6 % 1 applic topical QS 12/30/22 12/30/22 Unknown topical ointment (Calmoseptine) metoprolol succinate 200 mg 200 mg PO QAM 12/30/22 12/30/22 Unknown tablet,extended release 24 hr multivitamin 1 tab PO DAILY 12/30/22 12/30/22 Unknown naloxone 0.4 mg/mL injection 0.4 mg IV DIRECTED PRN ams 12/30/22 12/30/22 Unknown solution nitroglycerin 0.4 mg sublingual 0.4 mg sublingual DIRECTED PRN 12/30/22 12/30/22 Unknown tablet (Nitrostat) Chest Pain omeprazole 20 mg tablet,delayed 20 mg PO DAILY 12/30/22 12/30/22 Unknown release ondansetron HCl 4 mg tablet 4 mg PO Q6H PRN Nausea 12/30/22 12/30/22 Unknown polyethylene glycol 3350 17 gram 17 g PO QAM 12/30/22 12/30/22 Unknown oral powder packet (Miralax) prednisone 5 mg tablet 5 mg PO BID 12/30/22 12/30/22 Unknown saliva substitute combo no.9 2 ea PO .Q2HRS PRN .DRY MOUTH 12/30/22 12/30/22 Unknown (Biotene Dry Mouth Oral Rinse mouthwash) sertraline 100 mg tablet 100 mg PO DAILY 12/30/22 12/30/22 Unknown sodium chloride 0.9 % (flush) 10 ml IV QS 12/30/22 12/30/22 Unknown triamcinolone acetonide 0.1 % 1 applic topical DIRECTED 12/30/22 12/31/22 Unknown topical ointment Active Medications Generic Name Dose Route Start Last Admin Trade Name Freq PRN Reason Stop Dose Admin Abiraterone Acetate 2 each 12/31/22 13:00 12/31/22 13:10 Abiraterone Acetate PO 01/30/23 12:59 2 each DAILY@1100 MIESHA Administration Acetaminophen 650 mg 12/30/22 22:32 01/01/23 04:42 Acetaminophen 325 Mg Tab PO 01/29/23 22:31 650 mg Q6 PRN Administration Fever Or Pain Baclofen 10 mg 12/31/22 09:00 12/31/22 21:34 Baclofen 10 Mg Tab PO 01/30/23 08:59 10 mg TID MIESHA Administration Calamine/Phenol 1 appln 12/31/22 00:00 01/01/23 00:26 Menthol-Zinc Oxide 360 Appln/120 Gm Tube EXT 01/30/23 00:00 1 appln QS [facility] Administration Heparin Sodium (Porcine) 5,000 units 12/31/22 14:00 01/01/23 08:05 Heparin Sod 5,000 Unit/0.5 Ml Vial SQ 01/30/23 13:59 Not Given Q8 MIESHA Cefepime HCl 2,000 mg/ Syringe 20 mls @ 5 mls/min 12/31/22 00:00 01/01/23 08:41 IV 01/07/23 00:00 5 mls/min Q8H [facility] Administration Protocol Insulin Aspart 0 units 12/31/22 07:30 01/01/23 09:27 Insulin Aspart Per Unit Charge SQ 01/30/23 07:29 Not Given ACHS [facility] Lactobacillus Acidophilus 2 cap 12/31/22 09:00 12/31/22 08:33 Advanced Probiotic 1250 Mg Capsule PO 01/30/23 08:59 2 cap QAM MIESHA Administration Loratadine 10 mg 12/31/22 09:00 12/31/22 08:33 Loratadine 10 Mg Tab PO 01/30/23 08:59 10 mg DAILY MIESHA Administration Oxycodone HCl 5 mg 12/30/22 22:32 12/31/22 21:33 Oxycodone Hcl Ir 5 Mg Tab (Immediate Release) PO 01/13/23 22:31 5 mg Q4H PRN Administration Pain Pantoprazole Sodium 40 mg 12/31/22 09:00 12/31/22 08:33 Pantoprazole 40 Mg Tab PO 01/30/23 08:59 40 mg DAILY MIESHA Administration Polyethylene Glycol 17 gm 12/31/22 09:00 01/01/23 08:14 Polyethylene (Miralax) 17 Gm Pack PO 01/30/23 08:59 Not Given QAM MIESHA Prednisone 10 mg 12/31/22 09:00 12/31/22 21:34 Prednisone 10 Mg Tablet PO 01/30/23 08:59 10 mg BID MIESHA Administration Sertraline HCl 100 mg 12/31/22 09:00 12/31/22 08:33 Sertraline Hcl 100 Mg Tablet PO 01/30/23 08:59 100 mg DAILY MIESHA Administration NPO Date Last Intake of Fluids: 12/31/22 Time Last Intake of Fluids: 18:00 Date Last Intake of Solids: 12/31/22 Time Last Intake of Solids: 18:00 Past Medical History Medical History Adrenal insufficiency Spinal stenosis Prostate cancer metastatic to bone Atrial fibrillation DX 2019 - FOLLOWS W/ DR. GRANADOS DMII (diabetes mellitus, type 2) IPMN (intraductal papillary mucinous neoplasm) Acute urinary retention Morbid obesity Neurogenic claudication due to lumbar spinal stenosis Balanitis Thrombocytopenia COVID-19 Lumbar spondylosis Ambulatory dysfunction COVID-19 09/2022 requiring hospitalization Fatigue Urinary tract infection Urinary frequency Sacral lesion Prostate nodule Kidney stones Hypercholesterolemia Hydronephrosis of right kidney Androgen-induced osteoporosis Insomnia Resolved Chronic steroid use PROSTATE CANCER Osteoarthritis Ureter injury OBSTRUCTION OF RT URETER 2/2 PROSTATE CA Hyperlipidemia Urinary incontinence Urge incontinence Spinal stenosis Depression Renal insufficiency Urinary retention Resolved Anxiety Psychosis Had hx of depression with psychotic episode - resolved IBS (irritable bowel syndrome) HTN (hypertension) Exercise / Class Metabolic Activity III < 4 Walking/Shop/Light housework Past Family History Family History Mother , Passed age 60 of sepsis Gallbladder disease Mental disorder Psychological disorder Father , Passed age 89 of sepsis (infected bladder stones) Congestive heart failure Bladder stones Prostate cancer no treatment needed Brother Heart failure Kidney stones Kidney disease Bladder cancer, Onset Age: 75 Myocardial infarction Grandmother (Paternal) , Passed age 93 of old age Breast cancer, Onset Age: 40 double mastectomy and then did well Sister , Passed age 2 of pneumonia No problems noted. Other Has no children Denies family history of Colon cancer Ovarian cancer Past Surgical History Surgical History History of cataract surgery 2018 - Bilat History of tooth extraction in age 20's History of tonsillectomy as a child History of colonoscopy 2011 (due in 2021) History of prostate biopsy 2014 S/P TURP 2014 Past Anesthesia History No Hx of Anesthesia Complications and No Family Hx of Anesthesia Complications History of PONV No Hx of PONV and No Hx of Motion Sickness Social History Smoking Status: Former smoker tobacco type: cigarettes Do You Dip or Chew Tobacco: No Hx Alcohol Use: Yes alcohol intake frequency: holidays/special occasions only Hx Substance Use: No substance use type: does not use Physical Exam Vital Signs Last Vital Signs Temp 35.9 C L 01/01/23 09:02 Pulse 84 01/01/23 09:02 Resp 22 01/01/23 09:02 BP 135/84 01/01/23 09:02 Pulse Ox 99 01/01/23 09:02 O2 Del Method Nasal Cannula 01/01/23 09:02 O2 Flow Rate 3 01/01/23 09:02 ENMT Mouth: + dental restorations; no dentition abnormality Thyromental Distance: > or= 3.5 Finger Breadths Mallampati Class: III Neck normal visual inspection, trachea midline, + short neck and + thick neck; neck extension not limited Respiratory + uses accessory muscles Auscultation: + diminished lung sounds and + crackles (at bases) Cardiovascular Rate/Rhythm: + abnormal rate (afib) and + abnormal rhythm (a fib) Heart Sounds: no murmur Vessels: no carotid bruit Chest (Breasts) Chest: + vascular access device or port Musculoskeletal Spine: normal cervical ROM and no pain with cervical ROM Extremities: + extremities abnormal to inspection and full ROM of extremities Neurologic moves all extremities Motor/Sensory: + sensory deficit Psychiatric Orientation: alert and oriented x 3 Testing Laboratory Results 01/01/23 05:36 01/01/23 05:36 Hemoglobin A1c 7.0 % (4.5-5.6) H 12/31/22 04:17 12/30/22 14:59 Aerobic Blood Culture - Preliminary Blood Staphylococcus species Anaerobic Blood Culture - Preliminary No growth in Anaerobic bottle after 24 hours. 12/30/22 14:59 Aerobic Blood Culture - Preliminary Blood Staphylococcus species Anaerobic Blood Culture - Preliminary No growth in Anaerobic bottle after 24 hours. 01/01/23 01/01/23 09:04 08:09 POC Glucose 134 H 138 H Electrocardiogram Date: 12/30/22 Findings: + AFIB @ (@ 83; Non -specific T wave abnormality) Chest X-Ray Date: 12/30/22 Findings: + infiltrate (reticular interstitial opacities) and + atherosclerosis of thoracic aorta Echocardiogram Date: 11/16/22 EF: 60% LV Function: normal RWMA: + none Valvular Disease: + no significant valvular disease, + AI (mild AR) and + MR (mild MR) Mod. TR
--- NOTE | 2023-01-01 09:51 | Orthopedic Consultation ---
Date of Consultation January 01, 2023 Assessment & Plan (1) Bacteremia: MRI lumbar spine demonstrates marked fluid collection in the lumbar spine. In light of his bacteremia this definitely could be a source of infection refractory to the antibiotics he has been taking. Subsequently we are going to perform an irrigation debridement lumbar spine. History of Present Illness Reason for Consultation: Bacteremia Attending Physician: Saud Mercedes MD History of Present Illness This is a 69-year-old male known to me the presents to the hospital with evidence of bacteremia. Today he states his back pain is relatively well controlled he states he has been up and up and ambulating. He denies any significant leg pain. Allergies Allergy/AdvReac Type Severity Reaction Status Date / Time cat dander Allergy Severe CAN CAUSE Verified 12/30/22 20:35 ASTHMA ATTACK-itchy eyes, congestion gabapentin AdvReac Intermediate Hallucinati Verified 12/30/22 20:35 ng tramadol AdvReac Intermediate Hallucinati Verified 12/30/22 20:35 ng Home Medications Medication Instructions Recorded Confirmed Type Daptomcin Iv Solution 800 mg IV DAILY 12/30/22 12/30/22 History Heparin Sod Lock Flush 5 ml IV QS 12/30/22 12/30/22 History L.acidop,casei,lactis,rham-B.lact,donn 2 cap PO QAM 12/30/22 12/30/22 History 625 mg (10 billion cell) capsule (Advanced Probiotic) abiraterone 500 mg tablet 1,000 mg PO QAM 12/30/22 12/30/22 History acetaminophen 325 mg tablet 650 mg PO Q6 PRN Fever Or Pain 12/30/22 12/30/22 History (Tylenol) aluminum-mag hydroxide-simethicone 30 ml PO .Q6 PRN .GI UPSET 12/30/22 12/30/22 History 400 mg-400 mg-40 mg/5 mL oral susp (Mylanta Maximum Strength) atorvastatin 20 mg tablet 20 mg PO .HOLD UNTIL 01/02/23 12/30/22 12/30/22 History baclofen 10 mg tablet 10 mg PO TID 12/30/22 12/30/22 History calcium carbonate 500 mg-vitamin 1 tab PO DAILY 12/30/22 12/30/22 History D3 5 mcg (200 unit) tablet (Calcium 500 + D) cyanocobalamin (vitamin B-12) 1,000 mcg PO QAM 12/30/22 12/30/22 History 1,000 mcg tablet (Vitamin B-12) diltiazem HCl 180 mg 180 mg PO QAM 12/30/22 12/30/22 History tablet,extended release 24 hr doxycycline hyclate 100 mg tablet 100 mg PO .Q12HRS UD 12/30/22 12/30/22 History glimepiride 2 mg tablet 2 mg PO QAM 12/30/22 12/30/22 History insulin lispro 100 unit/mL 0 sliding scale dose subcut ACHS 12/30/22 12/30/22 History subcutaneous cartridge (Humalog U-100 Insulin) ipratropium 0.5 mg-albuterol 3 mg 3 ml inhalation .Q2HR PRN 12/30/22 12/30/22 History (2.5 mg base)/3 mL nebulization Shortness Of Breath Or Wheezing soln ipratropium 0.5 mg-albuterol 3 mg 3 ml inhalation .QID FOR 2WEEKS 12/30/22 12/30/22 History (2.5 mg base)/3 mL nebulization soln levofloxacin 750 mg tablet 750 mg PO .DAILY UD 12/30/22 12/30/22 History loratadine 10 mg capsule 10 mg PO DAILY 12/30/22 12/30/22 History menthol 0.44 %-zinc oxide 20.6 % 1 applic topical QS 12/30/22 12/30/22 History topical ointment (Calmoseptine) metoprolol succinate 200 mg 200 mg PO QAM 12/30/22 12/30/22 History tablet,extended release 24 hr multivitamin 1 tab PO DAILY 12/30/22 12/30/22 History naloxone 0.4 mg/mL injection 0.4 mg IV DIRECTED PRN ams 12/30/22 12/30/22 History solution nitroglycerin 0.4 mg sublingual 0.4 mg sublingual DIRECTED PRN 12/30/22 12/30/22 History tablet (Nitrostat) Chest Pain omeprazole 20 mg tablet,delayed 20 mg PO DAILY 12/30/22 12/30/22 History release ondansetron HCl 4 mg tablet 4 mg PO Q6H PRN Nausea 12/30/22 12/30/22 History polyethylene glycol 3350 17 gram 17 g PO QAM 12/30/22 12/30/22 History oral powder packet (Miralax) prednisone 5 mg tablet 5 mg PO BID 12/30/22 12/30/22 History saliva substitute combo no.9 2 ea PO .Q2HRS PRN .DRY MOUTH 12/30/22 12/30/22 History (Biotene Dry Mouth Oral Rinse mouthwash) sertraline 100 mg tablet 100 mg PO DAILY 12/30/22 12/30/22 History sodium chloride 0.9 % (flush) 10 ml IV QS 12/30/22 12/30/22 History triamcinolone acetonide 0.1 % 1 applic topical DIRECTED 12/30/22 12/31/22 History topical ointment Patient History Medical History Adrenal insufficiency Spinal stenosis Prostate cancer metastatic to bone Atrial fibrillation DX 2019 - FOLLOWS W/ DR. GRANADOS DMII (diabetes mellitus, type 2) IPMN (intraductal papillary mucinous neoplasm) Acute urinary retention Morbid obesity Neurogenic claudication due to lumbar spinal stenosis Balanitis Thrombocytopenia COVID-19 Lumbar spondylosis Ambulatory dysfunction COVID-19 09/2022 requiring hospitalization Fatigue Urinary tract infection Urinary frequency Sacral lesion Prostate nodule Kidney stones Hypercholesterolemia Hydronephrosis of right kidney Androgen-induced osteoporosis Insomnia Resolved Chronic steroid use PROSTATE CANCER Osteoarthritis Ureter injury OBSTRUCTION OF RT URETER / PROSTATE CA Hyperlipidemia Urinary incontinence Urge incontinence Spinal stenosis Depression Renal insufficiency Urinary retention Resolved Anxiety Psychosis Had hx of depression with psychotic episode - resolved IBS (irritable bowel syndrome) HTN (hypertension) Surgical History History of cataract surgery 2019 - Bilat History of tooth extraction in age 19's History of tonsillectomy as a child History of colonoscopy 2011 (due in 2021) History of prostate biopsy 2014 S/P TURP 2014 Family History Mother , Passed age 60 of sepsis Gallbladder disease Mental disorder Psychological disorder Father , Passed age 89 of sepsis (infected bladder stones) Congestive heart failure Bladder stones Prostate cancer no treatment needed Brother Heart failure Kidney stones Kidney disease Bladder cancer, Onset Age: 75 Myocardial infarction Grandmother (Paternal) , Passed age 93 of old age Breast cancer, Onset Age: 40 double mastectomy and then did well Sister , Passed age 2 of pneumonia No problems noted. Other Has no children Denies family history of Colon cancer Ovarian cancer Social History Smoking Status: Former smoker Tobacco Type: Cigarettes Age Started Using Tobacco: 20; Age Quit Using Tobacco: 39; packs per day: 0.5; Second Hand Exposure: No; Do You Dip or Chew Tobacco: No; Hx Alcohol Use: Yes Alcohol Intake Frequency: Monthly or Less Hx Substance Use: No Preferred Language: Greenlandic Communication Ability: Effective Communication Tools: Other Visual Impairment: Limited Hearing Ability: Normal Plastic Fixture Builder Required: No Beliefs That Will Affect Care: None marital status: Current Living Situation: Spouse Current Living Situation Comment: LIVES W/ OLIVER - current occupational status: retired 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 He is marked swelling to lower extremities. He is weakness to plantarflexion dorsiflexion quadriceps. Sensory appears to be intact. Results & Data Vital Signs (Past 12 Hours) Vital Signs Temp Pulse Pulse Resp BP Pulse Ox O2 Del Method 01/01/23 09:02 35.9 C L 84 22 135/84 99 Nasal Cannula 01/01/23 07:59 86 16 103/62 100 Nasal Cannula 01/01/23 04:59 90 18 118/77 99 Nasal Cannula 01/01/23 00:07 36.2 C L 83 18 113/78 98 Nasal Cannula 12/31/22 22:32 Nasal Cannula 12/31/22 22:00 83 O2 Flow Rate 01/01/23 09:02 3 01/01/23 07:59 3 01/01/23 04:59 2 01/01/23 00:07 2 12/31/22 22:32 2 12/31/22 22:00
[2023-01-01] MEDS ORDERED: ceFAZolin 330 MG/ML 1 GM VIAL ONE (10:07)
[2023-01-01] MEDS ORDERED: BUPIVACAINE/EPINEPHRINE 0.25% 1:200,000 30 ML VIAL ONE (10:07)
[2023-01-01] MEDS ORDERED: VANCOMYCIN HCL 1000MG/20ML VIAL ONE (10:09)
[2023-01-01] MEDS ORDERED: GENTAMICIN SULFATE 40 MG/ML 2 ML VIAL ONE (10:09)
--- NOTE | 2023-01-01 11:27 | Operative Report ---
Post Operative Report Pre & Post Diagnosis Operation Date: 01/01/23 15:20 Pre-Op Diagnosis: Bacteremia Post-Op Diagnosis: Bacteremia Epidural abscess I identified the patient and participated in the time-out.: Yes Procedure Operation Date: 01/01/23 15:20 Actual Procedures Irrigation debridement of the lumbar spine with evacuation of infected seroma Surgeon Benedict Velazco, DO [employer] None Estimated Blood Loss 50 Findings See Below Patient had considerable fluid collection that was purulent in nature throughout the epidural lumbar space. Specimens Cultures of the epidural space Indications This is a 69-year-old male well-known to me the presents to the hospital with evidence of bacteremia. MRI of the lumbar spine obtained demonstrates significant fluid collection. In light of his clinical presentation and fluid collection I felt it was important to evacuate the epidural space and rule out infection. Description of Procedure Patient was met with identified informed consent obtained. Patient was then taken to the operative suite underwent ablation placed in a prone position the Edmar table on top of the John frame. All bony promises well-padded I suspected to ensure no external pressure placed upon the. This point the lumbar spine was prepped and draped in a sterile fashion. Sharp dissection with assistance of Bovie cards from down to and exposing the fascia of the lumbar spine. The fascia was released and massive amounts of purulent fluid removed. Several liters of saline antibiotic saline were then irrigated throughout the incision. I evacuated and debrided all the torso. 2 MATTHEW drains were then inserted as well as 10 cc of Stimulan beads impregnated with vancomycin and gentamicin.. Incision was then closed with subcutaneous Vicryl and jamarcus for final skin closure. Sterile dressings placed. Patient waken taken to PACU in stable condition. I attest to the content of the Intraoperative Record and any orders documented therein. Any exceptions are noted below.
[2023-01-01] MEDS: BACLOFEN 10 MG TAB PO SCH ×3 (11:34→22:14)
[2023-01-01] MEDS ORDERED: NALOXONE HCL 0.4 MG/1 ML VIAL/CARP IV PRN (12:19)
[2023-01-01] MEDS ORDERED: PROMETHAZINE HCL 12.5 MG in SODIUM CHLORIDE 0.9% 50 ML IV PRN (12:19)
[2023-01-01] MEDS ORDERED: ATROPINE SULFATE 0.1 MG/ML 10ML SYR IV PRN (12:19)
[2023-01-01] MEDS ORDERED: FLUMAZENIL 0.1 MG/1 ML 10 ML VIAL IV PRN (12:19)
[2023-01-01] MEDS ORDERED: HYDROmorphone INJ 1 MG/ML SYRINGE IV PRN (12:19)
[2023-01-01] MEDS ORDERED: ePHEDrine sulfate 50 MG/ML AMP IV PRN (12:19)
[2023-01-01] MEDS ORDERED: LABETALOL HCL IV 5 MG/ML 20ML IV PRN (12:19)
[2023-01-01] MEDS ORDERED: ONDANSETRON INJ 2 MG/ML 2 ML VIAL IV PRN (12:19)
[2023-01-01] MEDS: fentaNYL citrate PF 100 MCG/2 ML VIAL IV PRN ×3 (12:23→12:43)
--- NOTE | 2023-01-01 12:54 | Anesthesiology Progress Note ---
Date of Service January 01, 2023 Anesthesia Post Procedure Vital Signs Vital Signs: Temp Pulse Pulse Pulse Resp BP BP 01/01/23 12:45 81 14 100/72 01/01/23 12:35 88 12 109/71 01/01/23 12:25 84 15 107/75 01/01/23 12:15 85 17 116/73 01/01/23 12:05 86 15 116/83 01/01/23 11:55 81 17 108/74 01/01/23 11:49 36.2 C L 78 18 118/76 01/01/23 09:02 35.9 C L 84 22 135/84 01/01/23 07:59 86 16 103/62 01/01/23 07:00 81 01/01/23 04:59 90 18 118/77 01/01/23 00:07 36.2 C L 83 18 113/78 12/31/22 22:32 12/31/22 22:00 83 12/31/22 19:50 36.1 C L 86 18 94/60 L 12/31/22 18:44 82 12/31/22 18:22 12/31/22 17:30 36.3 C L 93 H 22 106/72 12/31/22 17:04 23 12/31/22 16:00 86 23 12/31/22 16:00 114/94 12/31/22 15:00 85 20 12/31/22 15:00 107/86 12/31/22 14:01 93 H 21 12/31/22 14:01 118/79 12/31/22 14:00 88 24 12/31/22 13:00 131/84 12/31/22 13:00 90 21 Pulse Ox O2 Del Method O2 Flow Rate 01/01/23 12:45 98 Nasal Cannula 3 01/01/23 12:35 96 Nasal Cannula 3 01/01/23 12:25 98 Nasal Cannula 3 01/01/23 12:15 97 Nasal Cannula 3 01/01/23 12:05 97 Nasal Cannula 3 01/01/23 11:55 99 Nasal Cannula 3 01/01/23 11:49 100 Nasal Cannula 3 01/01/23 09:02 99 Nasal Cannula 3 01/01/23 07:59 100 Nasal Cannula 3 01/01/23 07:00 01/01/23 04:59 99 Nasal Cannula 2 01/01/23 00:07 98 Nasal Cannula 2 12/31/22 22:32 Nasal Cannula 2 12/31/22 22:00 12/31/22 19:50 98 Nasal Cannula 2 12/31/22 18:44 12/31/22 18:22 Nasal Cannula 2 12/31/22 17:30 99 Nasal Cannula 2 12/31/22 17:04 95 12/31/22 16:00 99 12/31/22 16:00 12/31/22 15:00 100 12/31/22 15:00 12/31/22 14:01 100 12/31/22 14:01 12/31/22 14:00 98 12/31/22 13:00 12/31/22 13:00 87 L Pain Intensity Back: Pain Intensity: 5 Transfer of Care Handoff Completed per policy Notes Mental Status: alert / awake / arousable Patient Amnestic to Procedure: Yes Nausea / Vomiting: adequately controlled Pain: adequately controlled Airway Patency, RR, SpO2: stable & adequate BP & HR: stable & adequate Hydration State: stable & adequate Anesthetic Complications: no major complications apparent
--- NOTE | 2023-01-01 13:18 | Hospitalist Progress Note ---
Date of Service January 01, 2023 Assessment & Plan (1) Bacteremia: Plan: Patient recently had MRSA bacteremia and is just 2 days a week from completing a 6-week course of daptomycin However presents to the hospital with worsening fatigue and poor appetite. Blood cultures drawn 12/31 growing gram-positive's in clusters Source most his lumbar area due to recent lumbar abscess and removal of hardware or could be due to his PICC line through which he gets his daptomycin He is now s/p Irrigation debridement of the lumbar spine with evacuation of infected seroma by Ortho spine Currently on vancomycin Appreciate infectious diseases and Ortho spine (2) Fatigue: Plan: Most likely due to bacteremia and deconditioning patient has been essentially bed bound for the past several weeks Blood culture growing Staph Continue antibiotics PT/OT (3) Hypotension: Plan: Now resolved (4) 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 Liriano Midline placed on 11/26 Continue Zytiga ?No notes regarding palliative consult during last visit Patient reports no pain at present Acetaminophen as needed for pain 1-4 Oxycodone 5 mg p.o. q4h as needed for breakthrough plan (5) DMII (diabetes mellitus, type 2): Plan: Last A1c was 7.7% on 09/24/2022 Glucose 117 on arrival Hold glimepiride SSI with insulin lispro; target BSG goal 133286jz/dL, CF 50, no carb ratio BSG ACHS T2DM diet Adjust regimen as needed A.m. A1c (6) Atrial fibrillation: Plan: Rate controlled; not on anticoagulation Hold metoprolol, diltiazem in the setting of hypotension Continuous telemetry monitoring (7) Adrenal insufficiency: Plan: Increase prednisone 5 mg --> 10 mg BID (8) Spinal stenosis: Plan: Hx of lumbar decompression with Dr. Velazco on 11/04/2022 Chronic LBP; stable (9) Urinary tract infection: Plan: Chronic indwelling Aaron UA positive on arrival Hold outpatient levofloxacin; r (10) Physical deconditioning: Plan: Patient has been essentially bedbound since his lumbar surgery He is physically deconditioned PT OT Plan Disposition: Obs -admit to MedSurg telemetry DNR/DNI T2DM diet VTE PPx: SCDs Admission and Anticipated Discharge Date Admission Date: January 01, 2023 Subjective patient seen and examined, on his way to the OR Review of Systems Review of Systems: All systems reviewed are negative, apart from the ones contained in the history. Physical Exam Physical Exam: The patient is awake, alert and oriented 3, well developed and well nourished, normocephalic and atraumatic, lying in bed and in no acute distress. HEENT--PERRL, EOMI, mucous membranes and oropharynx mildly dry Neck--supple. No JVD. No bruits. Thyroid normal, trachea midline, no adenop athy. Heart--normal S1 and S2. No murmurs, rubs or gallops. Lungs--clear bilaterally, no respiratory distress, no accessory muscle use. Abdomen--normal bowel sounds and soft. Mild epigastric and left sided abdominal pain Extremities--no cyanosis or clubbing. No edema. Dermatologic--normal skin turgor, normal color, no abnormal lymph nodes, no rash. Neurologic--cranial nerves II through XII grossly intact. Rheumatologic--normal range of motion. Psychiatric--normal affect. Results & Data Results & Data Vital Signs (Past 12 Hours) Vital Signs Temp Pulse Pulse Pulse Resp BP Pulse Ox 01/01/23 13:05 80 12 118/80 100 01/01/23 12:55 96.8 F L 86 12 107/81 100 01/01/23 12:45 81 14 100/72 98 01/01/23 12:35 88 12 109/71 96 01/01/23 12:25 84 15 107/75 98 01/01/23 12:15 85 17 116/73 97 01/01/23 12:05 86 15 116/83 97 01/01/23 11:55 81 17 108/74 99 01/01/23 11:49 97.2 F L 78 18 118/76 100 01/01/23 09:02 96.6 F L 84 22 135/84 99 01/01/23 07:59 86 16 103/62 100 01/01/23 07:00 81 01/01/23 04:59 90 18 118/77 99 O2 Del Method O2 Flow Rate 01/01/23 13:05 Nasal Cannula 3 01/01/23 12:55 Nasal Cannula 3 01/01/23 12:45 Nasal Cannula 3 01/01/23 12:35 Nasal Cannula 3 01/01/23 12:25 Nasal Cannula 3 01/01/23 12:15 Nasal Cannula 3 01/01/23 12:05 Nasal Cannula 3 01/01/23 11:55 Nasal Cannula 3 01/01/23 11:49 Nasal Cannula 3 01/01/23 09:02 Nasal Cannula 3 01/01/23 07:59 Nasal Cannula 3 01/01/23 07:00 01/01/23 04:59 Nasal Cannula 2 PG Care Time/CCT Total # of Minutes Spent Total Time Spent with Patient: Total time spent is greater than 50% in coordination of care (as documented) at patient's floor/unit and/or counseling patient: Coding Level of Care Code 35398 SUB INP/OBS CARE 2/35MIN Diagnoses Bacteremia R78.81 Fatigue R53.83 Hypotension I95.9 Prostate cancer metastatic to bone C61; C79.51 DMII (diabetes mellitus, type 2) E11.9 Atrial fibrillation I48.91 Adrenal insufficiency E27.40 Spinal stenosis M48.00 Spinal region: unspecified Urinary tract infection N39.0 Physical deconditioning R53.81 Time Spent (min) 35 (8) Spinal stenosis Spinal region: unspecified Qualified Code(s): M48.00 - Spinal stenosis, site unspecified
[2023-01-01] MEDS: VANCOMYCIN HCL 1,000 MG in SODIUM CHLORIDE 0.9% 250 ML IV SCH ×2 (13:21→22:35)
[2023-01-01] MEDS: PANTOprazole 40 MG TAB PO SCH (13:22)
[2023-01-01] MEDS: SERTRALINE HCL 100 MG TABLET PO SCH (13:23)
[2023-01-01] MEDS: ADVANCED PROBIOTIC 1250 MG CAPSULE PO SCH (13:23)
[2023-01-01] MEDS: LORATADINE 10 MG TAB PO SCH (13:23)
[2023-01-01] MEDS: ABIRATERONE ACETATE PO SCH (13:24)
--- NOTE | 2023-01-01 14:04 | Infectious Disease Progress Nt ---
Date of Service January 01, 2023 Assessment & Plan (1) MRSA bacteremia: (2) 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: (3) Fixation hardware in spine: Plan Willard Walker is a 77-year-old man with history of prostate cancer with mets to spine, spinal stenosis s/p lumbar decompression with hardware on 11/04/22, recent admission 11/14-11/27/22 [facility] for MRSA bacteremia and epidural abscess (on 6-week course of daptomycin with intended EOT 01/01/23), T2DM, who presents to [facility] from [facility] on 12/30/22 for worsening fatigue, with BCx + Staph spp. ID is consulted for bacteremia. 12/31 MRI showing continued fluid collections (though improving from prior), s/p I&D of lumbar spine and evacuation of infected seroma 01/01, awaiting cx. Concern that pts BCx currently growing Staph spp represents recurrent MRSA bacteremia in the setting of ongoing spinal hardware infection. 12/31 L-spine MRI with decreased size of large fluid collection at laminectomy sites, improving subdural fluid collections in lower thoracic and upper lumbar spine, and increased signal at L3-L4, L4-L5, and L5-S1 disc space levels. These findings are overall improved though still with collections and thus source control not achieved. If this is indeed MRSA again, this would be worrisome that it occurred while still on daptomycin therapy (more likely due to source control rather than antibiotic failure). Now s/p I&D and evacuation of infected seroma 01/01 with op report describing massive amounts of purulent fluid removed. Would repeat BCx to confirm clearance. Would obtain TTE. Would continue vancomycin for now (and if MRSA regrows, can confirm daptomycin susceptibilities). Reasonable also to continue cefepime while awaiting OR cx; suspect MRSA is primary van driver helper though recent superficial wound cx with growth of Klebsiella/Enterobacter/Proteus. ID Problem List: 1.GPC bacteremia 2.History of MRSA bacteremia, MRSA epidural abscess, MRSA spinal hardware infection, MRSA post-operative surgical wound 3.Lumbar fixation hardware in place Recommendations: - Continue vancomycin (dosed per pharmacy protocol) - Continue cefepime 2g IV Q8H while awaiting OR cx - F/u BCx for speciation and susceptibilities - Repeat BCx until clear x48h (ordered for 12/31, 01/01) - Obtain TTE - F/u 01/01 OR cx ID will continue to follow. Please note that on 01/02/23, [facility] will not round and will only be available for telephonic guidance. If questions, please contact the [facility] call center at [phone]. Mckenzie Christensen MD, [facility] Infectious Diseases [facility] direct line: [phone] Admission and Anticipated Discharge Date Admission Date: January 01, 2023 Subjective Subsequent visit was provided via telemedicine using two-way real-time interactive telecommunication between the patient and the telemedicine provider. For the duration of the visit, the provider was performing the assessment from a different facility than the patient. This includesuse of bluetooth stethoscope forauscultationperformed by the telepresenter that the telemedicine provider can hear if described in the physical exam. Adult Literacy Instructor contact information: Please call [facility] Call Center [phone]. (Phone Number For Physician Use Only) After establishing a telemedicine visit, patient was: Patient was verified with two unique identifiers, Patient/authorized rep acknowledged consent and understanding and Gave permission to continue telehealth session Time Spent with Patient: Subsequent => 35 min Results & Data Vital Signs (Past 12 Hours) Vital Signs Temp Pulse Pulse Pulse Resp BP Pulse Ox 01/01/23 13:30 36.3 C L 85 18 107/75 100 01/01/23 13:15 36.3 C L 89 18 108/69 97 01/01/23 13:05 80 12 118/80 100 01/01/23 12:55 36 C L 86 12 107/81 100 01/01/23 12:45 81 14 100/72 98 01/01/23 12:35 88 12 109/71 96 01/01/23 12:25 84 15 107/75 98 01/01/23 12:15 85 17 116/73 97 01/01/23 12:05 86 15 116/83 97 01/01/23 11:55 81 17 108/74 99 01/01/23 11:49 36.2 C L 78 18 118/76 100 01/01/23 09:02 35.9 C L 84 22 135/84 99 01/01/23 07:59 86 16 103/62 100 01/01/23 07:00 81 01/01/23 04:59 90 18 118/77 99 O2 Del Method O2 Flow Rate 01/01/23 13:30 Nasal Cannula 3 01/01/23 13:15 Nasal Cannula 3 01/01/23 13:05 Nasal Cannula 3 01/01/23 12:55 Nasal Cannula 3 01/01/23 12:45 Nasal Cannula 3 01/01/23 12:35 Nasal Cannula 3 01/01/23 12:25 Nasal Cannula 3 01/01/23 12:15 Nasal Cannula 3 01/01/23 12:05 Nasal Cannula 3 01/01/23 11:55 Nasal Cannula 3 01/01/23 11:49 Nasal Cannula 3 01/01/23 09:02 Nasal Cannula 3 01/01/23 07:59 Nasal Cannula 3 01/01/23 07:00 01/01/23 04:59 Nasal Cannula 2 Diagnostic Findings Micro: 01/01 OR g/s many polys, no organisms; bact cx: p; fungal cx: p 12/31 UCx: p 12/31 BCx x2: p 12/30 BCx x2: 2 of 4 Staph spp 12/30 UCx: yeast (not C. albicans/dub) Prior 12/15 wound cx: Klebsiella pnumoniae, Enterobacter cloaecae, Proteus mirabilis 12/11 UCx: C. albicans/dubliniensis, C. glabrata 11/20/22 OR lumbar epidural abscess ; g/s GPC, culture MRSA (S vanc,dapt, tet) BC 11/14 02/13 bottle MRSA (S vanc, dapt, tet) WC 11/14 MRSA BC 11/16 NGTD Antibiotic Summary: vancomycin (12/30-present) cefepime (12/30-present) Prior Daptomycin 11/14- 12/31/22 Recent levofloxacin PARTS PROCESSOR Recent antifungal (?fluconazole) PARTS PROCESSOR
[2023-01-01] MEDS: predniSONE 10 MG TABLET PO SCH ×2 (14:22→22:14)
[2023-01-01] MEDS: SODIUM CHLORIDE 0.9% 1,000 ML IV SCH (15:22)
--- NOTE | 2023-01-01 16:47 | XRay Report ---
SINGLE VIEW CHEST CLINICAL HISTORY: Dyspnea. FINDINGS: An AP, portable, upright chest radiograph is compared to study chest x-ray and chest CT . The examination is degraded by portable technique and patient rotation. The heart is enlarge d noting atherosclerotic calcification of the thoracic aorta. There is mild pulmonary vascular conges tion. There are low lung volumes with chronic elevation of the right hemidiaphragm and bibasilar atel ectasis. Foci of parenchymal scarring are seen throughout both lung. No airspace consolidation or lar ge pleural effusion is identified. No pneumothorax is seen. The skeletal structures are osteopenic. T he bony thorax is grossly intact. IMPRESSION: 1. Cardiomegaly with mild pulmonary vascular congestion. 2. No airspace consolidation or large pleural effusion is identified. ACT 112: Negative or not required by law. Electronically signed by: Jesus Alberto Briones M.D. 01/01/2023 4:45 PM
[2023-01-01] MEDS: oxyCODONE HCL IR 5 MG TAB (IMMEDIATE RELEASE) PO PRN (18:16)
--- NOTE | 2023-01-01 19:41 | XCELERA ---
[id number] \\[id number]
[2023-01-02] MEDS: MENTHOL-ZINC OXIDE 360 APPLN/120 GM TUBE EXT SCH ×3 (01:27→15:43)
[2023-01-02] MEDS: SODIUM CHLORIDE 0.9% 1,000 ML IV SCH ×2 (01:27→11:30)
[2023-01-02] MEDS: CEFEPIME 2,000 MG in SYRINGE 0 ML IV SCH ×3 (01:27→16:56)
[2023-01-02] MEDS: HEPARIN SOD 5,000 UNIT/0.5 ML VIAL SQ SCH ×3 (05:01→21:52)
--- NOTE | 2023-01-02 05:53 | Electrocardiogram Report ---
Test Reason : Blood Pressure : / mmHG Vent. Rate : 083 BPM Atrial Rate : 000 BPM P-R Int : 000 ms QRS Dur : 084 ms QT Int : 396 ms P-R-T Axes : 000 002 055 degrees QTc Int : 465 ms Atrial fibrillation Nonspecific T wave abnormality Abnormal ECG When compared with ECG of 14-NOV-2022 13:37, T wave inversion no longer evident in Anterior leads Confirmed by Vance Smiley ([id number]) on 01/02/2023 5:53:08 AM Referred By: REFERRED SELF Confirmed By:Vance Smiley
[2023-01-02 06:43] LABS: Hematocrit (blood only) 37.3 % (42.0-52.0); Hemoglobin 11.3 g/dl (14.0-18.0); Mean Corpuscular Hgb Conc 30.3 g/dL (32.0-36.0); Mean Corpuscular Volume 98.9 fL (80.0-100.0); Mean Platelet Volume 10.2 fL (9.4-12.4); Platelet Count 141 K/uL (130-400); RDW Coefficient of Variation 16.9 % (11.5-14.5); RDW Standard Deviation 61.8 fL (36.4-46.3); Red Blood Count 3.77 M/uL (4.70-6.10); White Blood Count 6.58 K/ul (4.8-10.8)
[2023-01-02 07:04] LABS: BUN Creatinine Ratio 34.8 (10-20); Creatinine Clr Calc Pharmacy 105.9 ml/min; Est GFR (African American) 105.4 ml/min; Est GFR (Non-African American) 90.9 ml/min; Potassium 3.4 mmol/L (3.5-5.1)
[2023-01-02 07:08] LABS: Basophils # (auto) 0.04 K/uL (0.00-0.20); Basophils % (auto) 0.6 %; Immature Granulocytes # (auto) 0.42 K/uL (0.01-0.20); Immature Granulocytes % (auto) 6.4 %; Lymphocytes # (auto) 1.18 K/uL (1.20-3.40); Lymphocytes % (auto) 17.9 %; Monocytes % (auto) 10.6 %; Neutrophils # (auto) 4.24 K/uL (1.40-6.50); Neutrophils % (auto) 64.5 %; Ovalocytes 1+; Tear Drop Cells 1+
[2023-01-02] MEDS: POLYETHYLENE (MIRALAX) 17 GM PACK PO SCH (08:47)
[2023-01-02] MEDS: LORATADINE 10 MG TAB PO SCH (08:47)
[2023-01-02] MEDS: ADVANCED PROBIOTIC 1250 MG CAPSULE PO SCH (08:47)
[2023-01-02] MEDS: PANTOprazole 40 MG TAB PO SCH (08:47)
[2023-01-02] MEDS: BACLOFEN 10 MG TAB PO SCH ×3 (08:47→21:52)
[2023-01-02] MEDS: SERTRALINE HCL 100 MG TABLET PO SCH (08:47)
[2023-01-02] MEDS: ATORVASTATIN 20 MG TAB PO SCH (08:47)
[2023-01-02] MEDS: predniSONE 10 MG TABLET PO SCH ×2 (08:47→21:52)
[2023-01-02] MEDS: INSULIN ASPART PER UNIT CHARGE SQ SCH ×4 (09:13→21:57)
--- NOTE | 2023-01-02 09:18 | Orthopedic Progress Note ---
Date of Service January 02, 2023 Assessment & Plan (1) Bacteremia: Plan: Patient is status post I&D lumbar spine with evidence of epidural abscess. He is much improved today. We will maintain the MATTHEW drains. Await final cultures. When possible and like him to begin transfers to a chair. Admission and Anticipated Discharge Date Admission Date: January 01, 2023 Subjective Patient is feeling much improved today. He is less back pain. Denies any leg pain. Physical Exam Physical Exam: Patient is much more alert today. Is cooperative with exam. Results & Data Vital Signs (Past 12 Hours) Vital Signs Temp Pulse Pulse Resp BP BP Pulse Ox 01/02/23 08:00 01/02/23 07:52 36.4 C L 91 H 16 133/90 93 01/02/23 03:40 36.5 C 88 20 112/74 94 01/01/23 23:51 36.5 C 96 H 18 96/65 L 91 01/01/23 22:01 100 H 01/01/23 21:30 O2 Del Method 01/02/23 08:00 Room Air 01/02/23 07:52 Room Air 01/02/23 03:40 Room Air 01/01/23 23:51 Room Air 01/01/23 22:01 01/01/23 21:30 Room Air Queries Orthopedic Spine Obesity: Yes
[2023-01-02] MEDS: VANCOMYCIN HCL 1,000 MG in SODIUM CHLORIDE 0.9% 250 ML IV SCH ×2 (10:40→22:01)
--- NOTE | 2023-01-02 10:52 | Hospitalist Progress Note ---
Date of Service January 02, 2023 Assessment & Plan (1) Bacteremia: Plan: Patient recently had MRSA bacteremia and is just 2 days a week from completing a 6-week course of daptomycin However presents to the hospital with worsening fatigue and poor appetite. Blood cultures drawn 12/31 growing gram-positive's in clusters Source most his lumbar area due to recent lumbar abscess and removal of hardware or could be due to his PICC line through which he gets his daptomycin He is now s/p Patient is now status post I&D lumbar spine with evidence of epidural abscess. With MATTHEW drains in situ. Intraoperative cultures obtained, result pending. Currently on vancomycin Appreciate infectious diseases and Ortho spine (2) Fatigue: Plan: Most likely due to bacteremia and deconditioning patient has been essentially bed bound for the past several weeks Blood culture growing Staph Continue antibiotics PT/OT (3) Hypotension: Plan: Now resolved (4) 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 Liriano Midline placed on 11/26 Continue Zytiga ?No notes regarding palliative consult during last visit Patient reports no pain at present Acetaminophen as needed for pain 1-4 Oxycodone 5 mg p.o. q4h as needed for breakthrough plan (5) DMII (diabetes mellitus, type 2): Plan: Last A1c was 7.7% on 09/24/2022 Glucose 117 on arrival Hold glimepiride SSI with insulin lispro; target BSG goal [id number]/dL, CF 50, no carb ratio BSG ACHS T2DM diet Adjust regimen as needed A.m. A1c (6) Atrial fibrillation: Plan: Rate controlled; not on anticoagulation Hold metoprolol, diltiazem in the setting of hypotension Continuous telemetry monitoring (7) Adrenal insufficiency: Plan: Increase prednisone 5 mg --> 10 mg BID (8) Spinal stenosis: Plan: Hx of lumbar decompression with Dr. Velazco on 11/04/2022 Chronic LBP; stable (9) Urinary tract infection: Plan: Chronic indwelling Aaron UA positive on arrival Hold outpatient levofloxacin; r (10) Physical deconditioning: Plan: Patient has been essentially bedbound since his lumbar surgery He is physically deconditioned PT OT Plan Disposition: Obs -admit to MedSurg telemetry DNR/DNI T2DM diet VTE PPx: SCDs Admission and Anticipated Discharge Date Admission Date: January 01, 2023 Subjective Patient seen and examined today, says he feels much better following surgery. Appetite is better Review of Systems Review of Systems: All systems reviewed are negative, apart from the ones contained in the history. Physical Exam Physical Exam: The patient is awake, alert and oriented 3, well developed and well nourished, normocephalic and atraumatic, lying in bed and in no acute distress. HEENT--PERRL, EOMI, mucous membranes and oropharynx mildly dry Neck--supple. No JVD. No bruits. Thyroid normal, trachea midline, no adenopathy. Heart--normal S1 and S2. No murmurs, rubs or gallops. Lungs--clear bilaterally, no respiratory distress, no accessory muscle use. Abdomen--normal bowel sounds and soft. Mild epigastric and left sided abdominal pain Extremities--no cyanosis or clubbing. No edema. Dermatologic--normal skin turgor, normal color, no abnormal lymph nodes, no rash. Neurologic--cranial nerves II through XII grossly intact. Rheumatologic--normal range of motion. Psychiatric--normal affect. Results & Data Results & Data Vital Signs (Past 12 Hours) Vital Signs Temp Pulse Pulse Resp BP BP Pulse Ox 01/02/23 10:47 97 H 01/02/23 08:00 01/02/23 07:52 97.5 F L 91 H 16 133/90 93 01/02/23 03:40 97.7 F 88 20 112/74 94 01/01/23 23:51 97.7 F 96 H 18 96/65 L 91 O2 Del Method 01/02/23 10:47 01/02/23 08:00 Room Air 01/02/23 07:52 Room Air 01/02/23 03:40 Room Air 01/01/23 23:51 Room Air PG Care Time/CCT Total # of Minutes Spent Total Time Spent with Patient: Total time spent is greater than 50% in coordination of care (as documented) at patient's floor/unit and/or counseling patient: Coding Level of Care Code 21024 SUB INP/OBS CARE 2/35MIN Diagnoses Bacteremia R78.81 Fatigue R53.83 Hypotension I95.9 Prostate cancer metastatic to bone C61; C79.51 DMII (diabetes mellitus, type 2) E11.9 Atrial fibrillation I48.91 Adrenal insufficiency E27.40 Spinal stenosis M48.00 Spinal region: unspecified Urinary tract infection N39.0 Physical deconditioning R53.81 Time Spent (min) 35 (8) Spinal stenosis Spinal region: unspecified Qualified Code(s): M48.00 - Spinal stenosis, site unspecified
[2023-01-02] MEDS: ABIRATERONE ACETATE PO SCH (11:30)
[2023-01-03] MEDS: SODIUM CHLORIDE 0.9% 1,000 ML IV SCH (00:21)
[2023-01-03] MEDS: CEFEPIME 2,000 MG in SYRINGE 0 ML IV SCH ×3 (00:47→16:49)
[2023-01-03] MEDS: MENTHOL-ZINC OXIDE 360 APPLN/120 GM TUBE EXT SCH ×3 (00:48→15:48)
[2023-01-03] MEDS ORDERED: Nursing to Pharmacy Communication SCH (01:00)
[2023-01-03] MEDS: HEPARIN SOD 5,000 UNIT/0.5 ML VIAL SQ SCH ×3 (06:05→21:31)
[2023-01-03 06:32] LABS: Hematocrit (blood only) 36.6 % (42.0-52.0); Hemoglobin 11.4 g/dl (14.0-18.0); Mean Corpuscular Hgb Conc 31.1 g/dL (32.0-36.0); Mean Corpuscular Volume 96.3 fL (80.0-100.0); Mean Platelet Volume 9.9 fL (9.4-12.4); Nucleated RBC # (auto) 0.03 K/uL (0.00-0.12); Nucleated RBC % (auto) 0.5 %; Platelet Count 125 K/uL (130-400); RDW Coefficient of Variation 16.5 % (11.5-14.5); RDW Standard Deviation 58.7 fL (36.4-46.3)
[2023-01-03 06:50] LABS: BUN Creatinine Ratio 30.5 (10-20); Creatinine Clr Calc Pharmacy 123.9 ml/min; Est GFR (African American) 112.4 ml/min; Potassium 3.1 mmol/L (3.5-5.1)
[2023-01-03] MEDS ORDERED: POTASSIUM CHLORIDE CRTAB 20 MEQ TABCR PO STA (07:50)
[2023-01-03] MEDS: ATORVASTATIN 20 MG TAB PO SCH (08:28)
[2023-01-03] MEDS: BACLOFEN 10 MG TAB PO SCH ×3 (08:28→21:30)
[2023-01-03] MEDS: PANTOprazole 40 MG TAB PO SCH (08:29)
[2023-01-03] MEDS: ADVANCED PROBIOTIC 1250 MG CAPSULE PO SCH (08:29)
[2023-01-03] MEDS: SERTRALINE HCL 100 MG TABLET PO SCH (08:29)
[2023-01-03] MEDS: POLYETHYLENE (MIRALAX) 17 GM PACK PO SCH (08:29)
[2023-01-03] MEDS: predniSONE 10 MG TABLET PO SCH ×2 (08:29→21:30)
[2023-01-03] MEDS: LORATADINE 10 MG TAB PO SCH (08:29)
[2023-01-03] MEDS: INSULIN ASPART PER UNIT CHARGE SQ SCH ×4 (09:14→20:52)
[2023-01-03] MEDS: VANCOMYCIN HCL 1,000 MG in SODIUM CHLORIDE 0.9% 250 ML IV SCH ×2 (10:38→22:13)
[2023-01-03] MEDS: ABIRATERONE ACETATE PO SCH (10:39)
--- NOTE | 2023-01-03 10:48 | Pharmacy Report ---
Pharmacy PK ABX Note - Date of Service January 03, 2023 - Assessment and Plan Assessment 01/03: 12/30 Blood cultures 4/ MRSA. Urine culture (indwelling walton) 12/30 Hazel glabrata complex, Hazel albicans/dubliniensis. 12/31 Blood cultures Negative at 48 hours, Vertebrae cultures: no growth, fungal pending. 01/01 blood cultures negative at 24 hours. No visualized vegetation on TTE. Afebrile, normal WBC. ID following. Random level this AM 25.1 does predict therapeutic AUC/AZAEL, however is an intermediate fit. Will obtain timed trough level to further assess dosing. 12/31 77 year old M receiving vancomycin and cefepime for bacteremia. Blood cultures (+) [facility] in 2, biofire (+) MRSA. Patient with recent admission for MRSA bacteremia and spinal abscess and was discharged on daptomycin through 01/01. ID consulted. Day #2 of antimicrobial therapy. Plan Vancomycin * Maintenance dose: 1000 mg IV every 12 hours * Level this morning was 25.1 mg/L indicating a therapeutic level with above dose. * Continue current dosing. * Regimen is predicted to achieve target AUC/AZAEL of 400-600 mg/L.hr * Trough 01/04 @0930 Pharmacy will continue to follow and will adjust dose/frequency as necessary. Thank you. Pharmacy has transitioned to AUC monitoring for vancomycin. AUC/AZAEL is the preferred PK/PD target and is associated with decreased risk of nephrotoxicity compared to traditional trough targets.
--- NOTE | 2023-01-03 11:19 | Hospitalist Progress Note ---
Date of Service January 03, 2023 Assessment & Plan (1) Bacteremia: Plan: Patient recently had MRSA bacteremia and was just 2 days away from completing a 6-week course of daptomycin However presented to the hospital on 12/30 with worsening fatigue and poor appetite. Blood cultures drawn 12/31 growing gram-positive's in clusters Source most likely his lumbar area due to recent lumbar abscess and removal of hardware He is now s/p I&D lumbar spine with evidence of epidural abscess. With MATTHEW drains in situ. Intraoperative cultures obtained, result pending. Currently on vancomycin and cefepime Appreciate infectious diseases and Ortho spine Patient is clinically much improved (2) Fatigue: Plan: Most likely due to bacteremia and deconditioning patient has been essentially bed bound for the past several weeks Blood culture growing Staph Continue antibiotics PT/OT (3) Hypotension: Plan: Now resolved Discontinue IV Fluids due to generalized edema (4) 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 Liriano Midline placed on 11/26 Continue Zytiga ?No notes regarding palliative consult during last visit Patient reports no pain at present Acetaminophen as needed for pain 1-4 Oxycodone 5 mg p.o. q4h as needed for breakthrough plan (5) DMII (diabetes mellitus, type 2): Plan: Last A1c was 7.7% on 09/24/2022 Glucose 117 on arrival Hold glimepiride SSI with insulin lispro; target BSG goal 956091en/dL, CF 50, no carb ratio BSG ACHS T2DM diet Adjust regimen as needed A.m. A1c (6) Atrial fibrillation: Plan: Rate controlled; not on anticoagulation Hold metoprolol, diltiazem in the setting of hypotension Continuous telemetry monitoring (7) Adrenal insufficiency: Plan: Increase prednisone 5 mg --> 10 mg BID (8) Spinal stenosis: Plan: Hx of lumbar decompression with Dr. Velazco on 11/04/2022 Chronic LBP; stable (9) Urinary tract infection: Plan: Chronic indwelling Aaron UA positive on arrival Hold outpatient levofloxacin; continue cefepime (10) Physical deconditioning: Plan: Patient has been essentially bedbound since his lumbar surgery He is physically deconditioned PT OT Plan Disposition: Obs -admit to [facility] telemetry DNR/DNI T2DM diet VTE PPx: SCDs Admission and Anticipated Discharge Date Admission Date: January 01, 2023 Subjective Patient seen and examined today, says he feels much better following surgery. Appetite is better Review of Systems Review of Systems: All systems reviewed are negative, apart from the ones contained in the history. Physical Exam Physical Exam: The patient is awake, alert and oriented 3, well developed and well nourished, normocephalic and atraumatic, lying in bed and in no acute distress. HEENT--PERRL, EOMI, mucous membranes and oropharynx mildly dry Neck--supple. No JVD. No bruits. Thyroid normal, trachea midline, no adenopathy. Heart--normal S1 and S2. No murmurs, rubs or gallops. Lungs--clear bilaterally, no respiratory distress, no accessory muscle use. Abdomen--normal bowel sounds and soft. Mild epigastric and left sided abdominal pain Extremities--bilateral pitting leg edema Dermatologic--excoriation of skin Neurologic--cranial nerves II through XII grossly intact. Rheumatologic--normal range of motion. Psychiatric--normal affect. Results & Data Results & Data Vital Signs (Past 12 Hours) Vital Signs Temp Pulse Pulse Resp BP Pulse Ox O2 Del Method 01/03/23 11:15 98.1 F 105 H 20 147/99 H 98 Room Air 01/03/23 10:24 105 H 01/03/23 07:56 98.4 F 99 H 20 136/90 98 Nasal Cannula 01/03/23 07:39 Nasal Cannula 01/03/23 03:18 97.7 F 99 H 14 121/82 96 Nasal Cannula 01/02/23 23:26 97.9 F 93 H 16 127/87 97 Nasal Cannula O2 Flow Rate 01/03/23 11:15 01/03/23 10:24 01/03/23 07:56 2 01/03/23 07:39 2 01/03/23 03:18 2 01/02/23 23:26 2 PG Care Time/CCT Total # of Minutes Spent Total Time Spent with Patient: Total time spent is greater than 50% in coordination of care (as documented) at patient's floor/unit and/or counseling patient: Coding Level of Care Code 90988 SUB INP/OBS CARE 2/35MIN Diagnoses Bacteremia R78.81 Fatigue R53.83 Hypotension I95.9 Prostate cancer metastatic to bone C61; C79.51 DMII (diabetes mellitus, type 2) E11.9 Atrial fibrillation I48.91 Adrenal insufficiency E27.40 Spinal stenosis M48.00 Spinal region: unspecified Urinary tract infection N39.0 Physical deconditioning R53.81 Time Spent (min) 35 (8) Spinal stenosis Spinal region: unspecified Qualified Code(s): M48.00 - Spinal stenosis, site unspecified
--- NOTE | 2023-01-03 15:56 | Infectious Disease Progress Nt ---
Date of Service January 03, 2023 Assessment & Plan (1) MRSA bacteremia: (2) 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: (3) Fixation hardware in spine: (4) Infection caused by Enterobacter cloacae: (5) Klebsiella infection: (6) Proteus mirabilis infection: (7) Candiduria: Plan Willard Walker is a 77-year-old man with history of prostate cancer with mets to spine, spinal stenosis s/p lumbar decompression with hardware on 11/04/22, recent admission 11/14-11/27/22 [facility] for MRSA bacteremia and epidural abscess (on 6-week course of daptomycin with intended EOT 01/01/23), T2DM, who presents to [facility] from [facility] on 12/30/22 for worsening fatigue, with BCx + Staph spp. ID is consulted for bacteremia. 12/31 MRI showing continued fluid collections (though improving from prior), s/p I&D of lumbar spine and evacuation of infected seroma 01/01 thus far OR cx with pinpoint growth (reincubating). Presented with recurrent MRSA bacteremia in the setting of ongoing spinal hardware infection. 12/31 L-spine MRI with decreased size of large fluid collection at laminectomy sites, improving subdural fluid collections in lower thoracic and upper lumbar spine, and increased signal at L3-L4, L4-L5, and L5-S1 disc space levels. These findings are overall improved though still with collections and thus source control not achieved. He is now s/p lumbar spine I&D on 01/01 (with significant pus and epidural abscess extending over the screws) and massive amounts of purulent fluid removed. 12/31 BCx thus far NGTD, which is reassuring. Would follow 12/31 and 01/01 BCx until finalized to ensure they remain negative. TTE without evidence of IE. Would continue vancomycin for now. Would obtain daptomycin susceptibilities of 12/30 MRSA in blood to ensure susceptible (previously isolate from prior admission was susceptible). 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 Given that the patient received a recent course of levofloxacin, and was on cefepime prior to O R, concerned that these Gram-negatives may be involved as well. Furthermore I discussed with Dr. Benedict Velazco on 01/03/23 that the patients surgery on 01/01 involved his entire lumbar incision and therefore it is possible that the organisms on his wound culture were involved in a deeper infection as well. Would continue IV antibiotics to complete an additional 8-week minimum course, with reassessment in ID clinic and consideration of extending IV antibiotics based on clinical status, inflammatory markers, and repeat spine MRI. After completion of IV antibiotics, would consider long-term PO antibiotic suppression (perhaps doxycycline for the MRSA, and could consider additional antibiotic for the Gram negatives). Will also request linezolid susceptibilities for the MRSA in consideration of PO options. Of note, pts Candiduria reflects colonization and would not treat this. ID Problem List: 1.MRSA bacteremia 2.Enterobacter, Klebsiella, Proteus wound infection 3.History of MRSA bacteremia, MRSA epidural abscess, MRSA spinal hardware infection, MRSA post-operative surgical wound 4.Lumbar fixation hardware in place 5.Candiduria Recommendations: - Continue vancomycin (dosed per pharmacy protocol) - Continue cefepime 2g IV Q8H - Would obtain daptomycin susceptibilities of 12/30 MRSA in blood (hospitalist left message with micro lab about this on 01/03/23) - Would continue IV antibiotics for an 8-week minimum course (either vancomycin + cefepime, or daptomycin + cefepime, depending on susceptibilities, 01/01/23-02/26/23) with consideration of extending IV antibiotics per ID clinic evaluation - Lab monitoring while on antibiotics: weekly CBC w/ diff, weekly CMP, and also weekly CPK if on daptomycin - After completion of IV antibiotics, would consider long-term PO antibiotic suppression ((perhaps doxycycline for the MRSA, and could consider additional antibiotic for the Gram negatives; will request MRSA linezolid susceptibilities) - Recommend outpatient ID follow-up if able - Consider repeat MRI spine in ~6-8 weeks ( or 2nd week of February) prior to potential end of IV antibiotic course - F/u repeat BCx on 12/31 and 01/01 to ensure negative - F/u 01/01 OR cx until finalized ID will continue to follow, but does not monitor the chart or round over the weekend; covering physician can be contacted at [phone] ([facility] call center) for telephonic consultation if needed. I will resume care of the ID service on Friday. If patient will be discharging over the weekend, please check to see if daptomycin susceptibilities have been performed. Mckenzie Christensen MD, M[facility] Infectious Diseases [facility]/ID Connect ID Connect direct line: [phone] Admission and Anticipated Discharge Date Admission Date: January 01, 2023 Subjective This patient recommendation is based on a telemedicine consult request which was completed asynchronously through chart review and information provided by the primary physician. The patient was not seen or examined today. The evaluation is consultative in nature and all patient care and treatment decisions can either be accepted or rejected by the patient's primary hospital-based treating physician using their own independent medical judgment for their patient. PLEASE NOTE: E-consult was performed given that no telepresenters were available on today 01/03/23. Time Spent Reviewing Chart: 31+ minutes PLEASE NOTE: E-consult was performed given that no telepresenters were available on today 01/03/23. - Afebrile, WBC 5 Results & Data Vital Signs (Past 12 Hours) Vital Signs Temp Pulse Pulse Resp BP Pulse Ox O2 Del Method 01/03/23 15:36 36.2 C L 113 H 20 131/85 98 Nasal Cannula 01/03/23 11:15 36.7 C 105 H 20 147/99 H 98 Nasal Cannula 01/03/23 10:24 105 H 01/03/23 07:56 36.9 C 99 H 20 136/90 98 Nasal Cannula 01/03/23 07:39 Nasal Cannula O2 Flow Rate 01/03/23 15:36 2 01/03/23 11:15 2 01/03/23 10:24 01/03/23 07:56 2 01/03/23 07:39 2 Diagnostic Findings Diagnostics: 01/01 TTE: no vegetation visualized, mild AR, mild-mod MR, mod-severe TR. 12/31/22 L-spine MRI 1. Interval decrease in size in the large fluid collection at the laminectomy sites as described above. The mass effect along the posterior thecal sac has slightly improved but there is persistent severe central canal narrowing at the L4 and L5 levels. 2. Small subdural fluid collections within the lower thoracic and upper lumbar spine have also improved in the interval. There is a small residual anterior subdural collection remaining at the T12-L1 level. 3. Paraspinal and bilateral psoas intramuscular edema persists. 4. Increased fluid signal within the L3-L4, L4-L5, and L5-S1 disc space levels again noted. This is similar to the prior study. No endplate erosive changes to suggest an osteomyelitis at this time. 12/30/22 CTA chest 1. The heart is mildly enlarged. There is severe coronary calcification and moderate mitral calcification. There is reflux of contrast into the IVC and hepatic veins. Consider mild CHF. 2. Lungs are well-inflated. There are linear densities in the perihilar regions and areas of platelet consolidation in both lung bases which may represent atelectasis or pneumonia. 3. The pulmonary arterial tree is well opacified with contrast. No pulmonary emboli are identified. 4. The aortic arch is mildly calcified but nondilated. There is no aneurysm or dissection. Micro: 01/01 OR g/s many polys, no organisms; bact cx: p; fungal cx: p 12/31 UCx: C. glabrata, C. albicans 12/31 BCx x2: NGTD 12/30 BCx x2: 2 of 4 MRSA 12/30 UCx: yeast (not C. albicans/dub) Prior 12/15 wound cx: Klebsiella pneumoniae, Enterobacter cloacae, Proteus mirabilis 12/11 UCx: C. albicans/dubliniensis, C. 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
--- NOTE | 2023-01-03 17:42 | XRay Report ---
XR chest 1V portable HISTORY: Shortness of breath. COMPARISON: Chest 01/01/2023. FINDINGS: There are low lung volumes. No pneumothorax. The heart remains enlarged. There are calcific ations within the aortic knob. There is mild central pulmonary vascular congestion without overt joanna a. This has improved in the interval. Bibasilar linear densities favor subsegmental atelectasis. No p leural effusions. No acute fractures identified. IMPRESSION: Cardiomegaly and mild congestive change. This has improved in the interval. ACT 112: Negative or not required by law. Electronically signed by: Orlando Houston M.D. 01/03/2023 5:41 PM
[2023-01-04] MEDS: MENTHOL-ZINC OXIDE 360 APPLN/120 GM TUBE EXT SCH ×3 (00:35→15:30)
[2023-01-04] MEDS: CEFEPIME 2,000 MG in SYRINGE 0 ML IV SCH ×3 (00:35→18:42)
[2023-01-04] MEDS: HEPARIN SOD 5,000 UNIT/0.5 ML VIAL SQ SCH ×3 (05:38→21:06)
--- NOTE | 2023-01-04 08:07 | Orthopedic Progress Note ---
Date of Service January 04, 2023 Assessment & Plan (1) 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: Plan: Willard is postoperative day 3 status post I&D lumbar spine with removal of epidural abscess. The goal today is to try and get him in a chair at minimum. IV antibiotic therapy as per infectious disease. Will continue both MATTHEW drains. Would recommend discharge to rehab when medically stable. Admission and Anticipated Discharge Date Admission Date: January 01, 2023 Subjective Willard is postoperative day 3 status post I&D lumbar spine removal of epidural abscess. Currently on IV vancomycin and cefepime. MATTHEW drain output #1 and #2 are both outputting 20 cc each. He is on heparin subcu for DVT prophylaxis. He has very little pain. He reports he has not been up and mobile/ambulatory since September. Blood cultures from 1120 show MRSA. Intraoperative wound cultures currently no growth to date. Will need a minimum of 8 weeks IV antibiotic therapy then likely transition to oral antibiotics Review of Systems Review of Systems: All systems reviewed & are unremarkable except as noted in HPI & below Physical Exam Physical Exam: He is laying in bed in no acute distress alert and oriented x 3 Has functioning MATTHEW drains lumbar spine Moves both lower extremities Overall very weak and deconditioned Results & Data Vital Signs (Past 12 Hours) Vital Signs Temp Pulse Pulse Resp BP Pulse Ox O2 Del Method 01/04/23 07:00 114 H 01/04/23 02:42 36.3 C L 125 H 20 178/78 H 97 Nasal Cannula 01/03/23 23:48 Nasal Cannula 01/03/23 22:22 36.4 C L 104 H 20 142/91 H 99 Nasal Cannula 01/03/23 21:56 106 H O2 Flow Rate 01/04/23 07:00 01/04/23 02:42 2 01/03/23 23:48 2 01/03/23 22:22 2 01/03/23 21:56 Queries Orthopedic Spine Obesity: Yes
[2023-01-04] MEDS: predniSONE 10 MG TABLET PO SCH ×2 (09:15→20:20)
[2023-01-04] MEDS: BACLOFEN 10 MG TAB PO SCH ×3 (09:15→20:07)
[2023-01-04] MEDS: SERTRALINE HCL 100 MG TABLET PO SCH (09:15)
[2023-01-04] MEDS: ATORVASTATIN 20 MG TAB PO SCH (09:16)
[2023-01-04] MEDS: ADVANCED PROBIOTIC 1250 MG CAPSULE PO SCH (09:16)
[2023-01-04] MEDS: PANTOprazole 40 MG TAB PO SCH (09:16)
[2023-01-04] MEDS: LORATADINE 10 MG TAB PO SCH (09:16)
[2023-01-04] MEDS: INSULIN ASPART PER UNIT CHARGE SQ SCH ×4 (09:24→20:07)
[2023-01-04] MEDS: POLYETHYLENE (MIRALAX) 17 GM PACK PO SCH (09:30)
[2023-01-04] MEDS ORDERED: VANCOMYCIN LEVEL ONE (09:30)
[2023-01-04] MEDS: METOPROLOL SUCC 50MG EXT REL TAB PO SCH (09:30)
[2023-01-04] MEDS: CYANOCOBALAMIN (B-12) 500 MCG TABLET PO SCH (09:31)
[2023-01-04] MEDS: dilTIAZem HCL 180 MG CAPCR PO SCH (09:31)
[2023-01-04] MEDS: CALCIUM 600MG + VIT D 400 IU TAB PO SCH (09:31)
[2023-01-04] MEDS: VANCOMYCIN HCL 1,000 MG in SODIUM CHLORIDE 0.9% 250 ML IV SCH (10:27)
[2023-01-04 10:37] LABS: Hematocrit (blood only) 38.9 % (42.0-52.0); Hemoglobin 12.2 g/dl (14.0-18.0); Mean Corpuscular Hemoglobin 29.9 pg (25.0-34.0); Mean Corpuscular Hgb Conc 31.4 g/dL (32.0-36.0); Mean Corpuscular Volume 95.3 fL (80.0-100.0); Mean Platelet Volume 9.8 fL (9.4-12.4); Nucleated RBC # (auto) 0.06 K/uL (0.00-0.12); Nucleated RBC % (auto) 0.8 %; Platelet Count 146 K/uL (130-400); RDW Coefficient of Variation 16.3 % (11.5-14.5); RDW Standard Deviation 57.1 fL (36.4-46.3); Red Blood Count 4.08 M/uL (4.70-6.10); White Blood Count 7.15 K/ul (4.8-10.8)
[2023-01-04 10:54] LABS: BUN Creatinine Ratio 25.9 (10-20); Calcium 8.5 mg/dl (8.6-10.3); Creatinine Clr Calc Pharmacy 123.9 ml/min; Est GFR (African American) 113.2 ml/min; Est GFR (Non-African American) 97.7 ml/min; Potassium 3.2 mmol/L (3.5-5.1)
[2023-01-04] MEDS: ABIRATERONE ACETATE PO SCH (11:38)
[2023-01-04] MEDS ORDERED: POTASSIUM CHLORIDE 20 MEQ/15 ML UDC PO STA (12:19)
--- NOTE | 2023-01-04 12:32 | Hospitalist Progress Note ---
Date of Service January 04, 2023 Assessment & Plan (1) Bacteremia: Plan: Patient recently had MRSA bacteremia and was just 2 days away from completing a 6-week course of daptomycin However presented to the hospital on 12/30 with worsening fatigue and poor appetite. Blood cultures drawn 12/31 growing gram-positive's in clusters Source most likely his lumbar area due to recent lumbar abscess and removal of hardware He is now 3 days s/p I&D lumbar spine with evidence of epidural abscess. With MATTHEW drains in situ. Intraoperative cultures obtained, negative so far Currently on vancomycin and cefepime Appreciate infectious diseases and Ortho spine Patient is clinically much improved Per ID, "Would continue IV antibiotics to complete an additional 8-week minimum course, with reassessment in ID clinic and consideration of extending IV antibiotics based on clinical status, inflammatory markers, and repeat spine MRI. After completion of IV antibiotics, would consider long-term PO antibiotic suppression (perhaps doxycycline for the MRSA, and could consider additional antibiotic for the Gram negatives). Will also request linezolid susceptibilities for the MRSA in consideration of PO options." (2) Fatigue: Plan: Most likely due to bacteremia and deconditioning patient has been essentially bed bound for the past several weeks Blood culture growing Staph Continue antibiotics PT/OT, he needs to get out of bed at least (3) Hypotension: Plan: Now resolved Discontinue IV Fluids due to generalized edema (4) 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 Liriano Midline placed on 11/26 Continue Zytiga ?No notes regarding palliative consult during last visit Patient reports no pain at present Acetaminophen as needed for pain 1-4 Oxycodone 5 mg p.o. q4h as needed for breakthrough plan (5) DMII (diabetes mellitus, type 2): Plan: Last A1c was 7.7% on 09/24/2022 Glucose 117 on arrival Hold glimepiride SSI with insulin lispro; target BSG goal 834883lv/dL, CF 50, no carb ratio BSG ACHS T2DM diet Adjust regimen as needed A.m. A1c (6) Atrial fibrillation: Plan: Rate controlled; not on anticoagulation Hold metoprolol, diltiazem in the setting of hypotension Continuous telemetry monitoring (7) Adrenal insufficiency: Plan: Increase prednisone 5 mg --> 10 mg BID (8) Spinal stenosis: Plan: Hx of lumbar decompression with Dr. Velazco on 11/04/2022 Chronic LBP; stable (9) Urinary tract infection: Plan: Chronic indwelling Aaron UA positive on arrival Hold outpatient levofloxacin; continue cefepime (10) Physical deconditioning: Plan: Patient has been essentially bedbound since his lumbar surgery He is physically deconditioned PT OT Plan Disposition: Obs -admit to [facility] telemetry DNR/DNI T2DM diet VTE PPx: SCDs Admission and Anticipated Discharge Date Admission Date: January 01, 2023 Subjective patient seen and exemanined, although he says he feels a lot better, he looks weak and has not got out of bed, has been bedbound for several weeks now Review of Systems Review of Systems: All systems reviewed are negative, apart from the ones contained in the history. Physical Exam Physical Exam: The patient is awake, alert and oriented 3, well developed and well nourished, normocephalic and atraumatic, lying in bed and in no acute distress. HEENT--PERRL, EOMI, mucous membranes and oropharynx mildly dry Neck--supple. No JVD. No bruits. Thyroid normal, trachea midline, no adenopathy. Heart--normal S1 and S2. No murmurs, rubs or gallops. Lungs--clear bilaterally, no respiratory distress, no accessory muscle use. Abdomen--normal bowel sounds and soft. Mild epigastric and left sided abdominal pain Extremities--bilateral pitting leg edema Dermatologic--excoriation of skin Neurologic--cranial nerves II through XII grossly intact. Rheumatologic--normal range of motion. Psychiatric--normal affect. Results & Data Results & Data Vital Signs (Past 12 Hours) Vital Signs Temp Pulse Pulse Resp BP BP Pulse Ox 01/04/23 12:20 97.2 F L 101 H 18 133/93 95 01/04/23 08:15 97.3 F L 128 H 20 132/66 98 01/04/23 07:30 01/04/23 07:00 114 H 01/04/23 02:42 97.3 F L 125 H 20 178/78 H 97 O2 Del Method O2 Flow Rate 01/04/23 12:20 Nasal Cannula 2 01/04/23 08:15 Nasal Cannula 2 01/04/23 07:30 Nasal Cannula 2 01/04/23 07:00 01/04/23 02:42 Nasal Cannula 2 PG Care Time/CCT Total # of Minutes Spent Total Time Spent with Patient: Total time spent is greater than 50% in coordination of care (as documented) at patient's floor/unit and/or counseling patient: Coding Level of Care Code 53147 SUB INP/OBS CARE 2/35MIN Diagnoses Bacteremia R78.81 Fatigue R53.83 Hypotension I95.9 Prostate cancer metastatic to bone C61; C79.51 DMII (diabetes mellitus, type 2) E11.9 Atrial fibrillation I48.91 Adrenal insufficiency E27.40 Spinal stenosis M48.00 Spinal region: unspecified Urinary tract infection N39.0 Physical deconditioning R53.81 Time Spent (min) 35 (8) Spinal stenosis Spinal region: unspecified Qualified Code(s): M48.00 - Spinal stenosis, site unspecified
--- NOTE | 2023-01-04 12:34 | Pharmacy Report ---
Pharmacy PK ABX Note - Date of Service January 04, 2023 - Assessment and Plan Assessment 01/04: Measured trough 23.5 mcg/mL is higher than predicted 20.4 mcg/ml, intermediate model fit. Given high trough, will reduce dose today. Vertebrae culture form 01/01 now with staph species. 01/03: 12/30 Blood cultures 4/4 MRSA. Urine culture (indwelling walton) 12/30 Hazel glabrata complex, Hazel albicans/dubliniensis. 12/31 Blood cultures Negative at 48 hours, Vertebrae cultures: no growth, fungal pending. 01/01 blood cultures negative at 24 hours. No visualized vegetation on TTE. Afebrile, normal WBC. ID following. Random level this AM 25.1 does predict therapeutic AUC/AZAEL, h owever is an intermediate fit. Will obtain timed trough level to further assess dosing. 12/31 77 year old M receiving vancomycin and cefepime for bacteremia. Blood cultures (+) [facility]CC in 2/, biofire (+) MRSA. Patient with recent admission for MRSA bacteremia and spinal abscess and was discharged on daptomycin through 01/01. ID consulted. Day #2 of antimicrobial therapy. Plan Vancomycin * Maintenance dose: 1000 mg IV every 12 hours * Level this morning was 23.5 mg/L indicating a supratherapeutic level with above dose. * Adjust dose to 750 mg q12H * Trough for 01/06 @1530 Pharmacy will continue to follow and will adjust dose/frequency as necessary. Thank you. Pharmacy has transitioned to AUC monitoring for vancomycin. AUC/AZAEL is the preferred PK/PD target and is associated with decreased risk of nephrotoxicity compared to traditional trough targets.
[2023-01-04] MEDS: ALBUMIN 25% 25 GM/100 ML VIAL IV SCH ×4 (13:39→22:48)
[2023-01-04] MEDS: FUROSEMIDE 40 MG/4 ML VIAL IV SCH (13:39)
[2023-01-04] MEDS ORDERED: AA 4.25%/D5W 1L 1,000 ML in Peripheral TPN bag 0 ML IV SCH (16:00)
--- NOTE | 2023-01-04 17:06 | CT Scan Report ---
CT chest diagnostic wo con CT DOSE: 2864.79 mGy.cm HISTORY: Shortness of breath. TECHNIQUE: Multiaxial CT images of the chest were performed without contrast. A dose lowering techni que was utilized adhering to the principles of ALARA. COMPARISON: Chest CTA 12/30/2022. FINDINGS: No acute fractures within the chest. There are healed bilateral anterior rib fractures agai n noted. The abdominal structures will be reported on the same day abdomen and pelvis CT. There are l ow lung volumes. Normal esophagus. The heart remains mildly enlarged. There are trace bilateral pleur al effusions, unchanged. No pericardial effusion. Moderate coronary artery and mitral annulus calcifi cations are again noted. Mild calcified plaque within the normal caliber thoracic aorta. No mediastin al or hilar lymphadenopathy. The central airways are patent. No pneumothorax. The stable linear scarl lorelei densities within the upper lobes. There are patchy and linear densities within the lower lobes wh ich are similar to the prior study. This favors atelectasis or scarring. A superimposed pneumonia wou ld be difficult to exclude. There are punctate calcifications within the lung bases, unchanged. No ev idence for pulmonary edema. There is an 8 mm nodular density within the left lung apex which is new f rom the prior studies. IMPRESSION: 1. No significant change compared to the prior study. 2. Cardiomegaly and trace bilateral pleural effusions persist. No evidence for pulmonary edema. 3. Patchy and linear densities within the lung bases again noted. This favors atelectasis/scarring. A superimposed pneumonia con also have a similar appearance. 4. A new 8 mm nodular density within the left lung apex. Attention at follow-up recommended to ensure resolution/stability. ACT 112: Negative or not required by law. Electronically signed by: Orlando Houston M.D. 01/04/2023 5:04 PM
--- NOTE | 2023-01-04 17:22 | CT Scan Report ---
ABDOMEN AND PELVIS CT WITHOUT CONTRAST CT DOSE: HISTORY: Generalized abdominal pain, nausea, vomiting TECHNIQUE: Multiaxial CT images of the abdomen and pelvis were performed without contrast. A dose lo wering technique was utilized adhering to the principles of ALARA. COMPARISON STUDY: Lumbar spine MRI 12/31/2022. Abdomen and pelvis CT 11/14/2022. FINDINGS: The lung bases are better appreciated on the same day chest CTA. Trace bilateral pleural ef fusions are again noted. No pneumoperitoneum. No pneumatosis. A sclerotic sacral lesion is again note d. This likely represents a metastatic focus. Healed bilateral rib fractures again noted. Some these demonstrate greater than expected sclerosis and could be pathologic. Posterior decompression fusion a gain noted within the lumbar spine. There is a surgical drain noted within the laminectomy fluid costa ection. This is not well evaluated due to the metallic artifact. However, the laminectomy fluid colle ction appears to have decreased in size in the interval. Body wall edema has progressed. The unenhanc ed liver, gallbladder, spleen, and adrenal glands unremarkable. Focal dilatation of the distal left u reter, unchanged. Severe right renal atrophy and severe chronic right hydronephrosis, unchanged. Ther e is a 3 mm stone within the distal right ureter on image 347. This remains unchanged. Hypodense lesi ons within the pancreatic tail and a few pancreatic calcifications, unchanged. No pelvic lymphadenopa thy. There is a Aaron catheter within the bladder. There is mild bladder wall thickening. Colonic div erticulosis. No evidence for acute diverticulitis. There is trace pelvic free fluid. Normal appendix. Fluid-filled loops of large and small bowel. The colon is slightly distended with fluid and gas. How ever, no transition point to suggest a bowel obstruction. Therefore, this favors a gastroenteritis/di arrheal illness.. Mild edema/fat stranding surrounding the distal sigmoid colon. A low-grade colitis is not excluded. IMPRESSION: 1. Fluid-filled loops of large and small bowel. The colon is slightly distended with fluid and gas. H owever, no transition point to suggest a bowel obstruction. Therefore, this favors a gastroenteritis/ diarrheal illness. In addition, there is mild edema/fat stranding surrounding the distal sigmoid colo n. A low-grade colitis is not excluded. 2. There is again noted an atrophic right kidney with severe right hydroureteronephrosis to the level of the distal right ureter which demonstrates urothelial thickening and contains a 3 mm stone. This remains unchanged. Urology consultation recommended. 3. Body wall edema has progressed. 4. There is a surgical drain noted within the laminectomy fluid collection. This is not well evaluate d due to the metallic artifact. However, the laminectomy fluid collection appears to have decreased i n size in the interval. 5. Mild bladder wall thickening. Recommend correlation with urinalysis to exclude a cystitis. 6. Sacral osteoblastic metastatic focus again noted. 7. Additional findings as described above. ACT 112: Negative or not required by law. Electronically signed by: Orlando Houston M.D. 01/04/2023 5:19 PM
[2023-01-04] MEDS ORDERED: DEXTROSE 10% 1,000 ML IV PRN (18:17)
[2023-01-04] MEDS ORDERED: TPN/PPN CONSULT PHARMACY PRN (18:24)
[2023-01-04] MEDS: ONDANSETRON 4 MG OD TAB PO PRN (18:34)
--- NOTE | 2023-01-04 18:35 | XRay Report ---
XR chest 1V portable HISTORY: Check PICC line placement COMPARISON: Chest 01/03/2023. FINDINGS: A right PICC terminates in the expected location of the distal SVC. There are low lung volu mes. The heart remains mildly enlarged. No pneumothorax. No pleural effusions. Bibasilar linear densi ties favor subsegmental atelectasis or scarring. There is mild central pulmonary vascular congestion without overt edema. Calcifications within the aortic knob. IMPRESSION: 1. A right PICC terminates in the distal SVC. 2. Cardiomegaly and mild congestive change persists. ACT 112: Negative or not required by law. Electronically signed by: Orlando Houston M.D. 01/04/2023 6:34 PM
[2023-01-04] MEDS: ONDANSETRON INJ 2 MG/ML 2 ML VIAL IV PRN (20:00)
[2023-01-04] MEDS: HYDROCORTISONE SOD 50 MG in SYRINGE 0 ML IV SCH (21:06)
[2023-01-05] MEDS: MENTHOL-ZINC OXIDE 360 APPLN/120 GM TUBE EXT SCH ×4 (00:20→23:21)
[2023-01-05] MEDS: CEFEPIME 2,000 MG in SYRINGE 0 ML IV SCH ×3 (00:29→16:39)
[2023-01-05] MEDS: VANCOMYCIN HCL 750 MG in SODIUM CHLORIDE 0.9% 250 ML IV SCH ×2 (03:50→16:11)
[2023-01-05] MEDS: HEPARIN SOD 5,000 UNIT/0.5 ML VIAL SQ SCH ×3 (05:20→21:29)
[2023-01-05 06:49] LABS: Hematocrit (blood only) 30.4 % (42.0-52.0); Hemoglobin 9.4 g/dl (14.0-18.0); Mean Corpuscular Hgb Conc 30.9 g/dL (32.0-36.0); Mean Corpuscular Volume 97.1 fL (80.0-100.0); Mean Platelet Volume 10.5 fL (9.4-12.4); Nucleated RBC # (auto) 0.02 K/uL (0.00-0.12); Nucleated RBC % (auto) 0.4 %; Platelet Count 118 K/uL (130-400); RDW Coefficient of Variation 16.6 % (11.5-14.5); RDW Standard Deviation 58.4 fL (36.4-46.3); Red Blood Count 3.13 M/uL (4.70-6.10); White Blood Count 4.76 K/ul (4.8-10.8)
[2023-01-05 06:51] LABS: BUN Creatinine Ratio 23.7 (10-20); Creatinine Clr Calc Pharmacy 120.5 ml/min; Est GFR (African American) 112.4 ml/min; Magnesium 1.9 mg/dl (1.7-2.4); Phosphorus 2.2 mg/dl (2.5-4.9); Potassium 2.5 mmol/L (3.5-5.1)
[2023-01-05] MEDS ORDERED: SODIUM PHOSPHATE 3 MMOL/1 ML INFUSION IV STA (07:34)
[2023-01-05] MEDS: POTASSIUM CHLORIDE / WTR 10 MEQ/100 ML PLCT IV SCH ×4 (07:47→10:47)
[2023-01-05] MEDS ORDERED: SODIUM PHOSPHATE 9 MMOL in SODIUM CHLORIDE 0.9% 250 ML IV ONE (08:00)
[2023-01-05] MEDS: HYDROCORTISONE SOD 50 MG in SYRINGE 0 ML IV SCH ×3 (08:20→20:34)
[2023-01-05] MEDS: FUROSEMIDE 40 MG/4 ML VIAL IV SCH (08:21)
[2023-01-05] MEDS: INSULIN ASPART PER UNIT CHARGE SQ SCH ×4 (08:26→20:33)
[2023-01-05] MEDS: PANTOprazole 40 MG TAB PO SCH (08:50)
[2023-01-05] MEDS: dilTIAZem HCL 180 MG CAPCR PO SCH (08:50)
[2023-01-05] MEDS: METOPROLOL SUCC 50MG EXT REL TAB PO SCH (08:50)
[2023-01-05] MEDS: ATORVASTATIN 20 MG TAB PO SCH (08:50)
[2023-01-05] MEDS: CALCIUM 600MG + VIT D 400 IU TAB PO SCH (08:50)
[2023-01-05] MEDS: CYANOCOBALAMIN (B-12) 500 MCG TABLET PO SCH (08:51)
[2023-01-05] MEDS: BACLOFEN 10 MG TAB PO SCH ×3 (08:51→20:33)
[2023-01-05] MEDS: LORATADINE 10 MG TAB PO SCH (08:52)
[2023-01-05] MEDS: SERTRALINE HCL 100 MG TABLET PO SCH (08:53)
[2023-01-05] MEDS: predniSONE 10 MG TABLET PO SCH ×2 (08:53→20:33)
[2023-01-05] MEDS: ADVANCED PROBIOTIC 1250 MG CAPSULE PO SCH (08:53)
[2023-01-05] MEDS: ONDANSETRON INJ 2 MG/ML 2 ML VIAL IV PRN ×3 (09:34→23:37)
[2023-01-05] MEDS: POLYETHYLENE (MIRALAX) 17 GM PACK PO SCH (09:42)
[2023-01-05] MEDS: oxyCODONE HCL IR 5 MG TAB (IMMEDIATE RELEASE) PO PRN ×2 (09:44→14:51)
[2023-01-05] MEDS: ABIRATERONE ACETATE PO SCH (10:47)
--- NOTE | 2023-01-05 10:53 | Hospitalist Progress Note ---
Date of Service January 05, 2023 Assessment & Plan (1) Bacteremia: Plan: Patient recently had MRSA bacteremia and was just 2 days away from completing a 6-week course of daptomycin However presented to the hospital on 12/30 with worsening fatigue and poor appetite. Blood cultures drawn 12/31 growing gram-positive's in clusters Source most likely his lumbar area due to recent lumbar abscess and removal of hardware He is now 4 days s/p I&D lumbar spine with evidence of epidural abscess. With MATTHEW drains in situ. Intraoperative cultures obtained, now growing staph as well Currently on vancomycin and cefepime Appreciate infectious diseases and Ortho spine Per ID, "Would continue IV antibiotics to complete an additional 8-week minimum course, with reassessment in ID clinic and consideration of extending IV antibiotics based on clinical status, inflammatory markers, and repeat spine MRI. After completion of IV antibiotics, would consider long-term PO antibiotic suppression (perhaps doxycycline for the MRSA, and could consider additional antibiotic for the Gram negatives). 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 Liriano Continue Mayte ?No notes regarding palliative consult during last visit Patient reports no pain at present Acetaminophen as needed for pain 1-4 Oxycodone 5 mg p.o. q4h as needed for breakthrough plan (4) DMII (diabetes mellitus, type 2): Plan: Last A1c was 7.7% on 09/24/2022 Glucose 117 on arrival Hold glimepiride SSI with insulin lispro; target BSG goal 349071ob/dL, CF 50, no carb ratio BSG ACHS T2DM diet Adjust regimen as needed A.m. A1c (5) Atrial fibrillation: Plan: Rate controlled; not on anticoagulation Hold metoprolol, diltiazem in the setting of hypotension Continuous telemetry monitoring (6) Adrenal insufficiency: Plan: Increase prednisone 5 mg --> 10 mg BID However, He has been refusing oral meds, will continue a stress dose of Hydrocrt 50mg TID (7) Spinal stenosis: Plan: Hx of lumbar decompression with Dr. Velazco on 11/04/2022 Chronic LBP; stable (8) Urinary tract infection: Plan: Chronic indwelling Aaron UA positive on arrival Hold outpatient levofloxacin; continue cefepime (9) Physical deconditioning: Plan: Patient has been essentially bedbound since his lumbar surgery He is physically deconditioned PT OT (10) Anasarca: Plan: Etiology is most likely due to low oncortic pressure and heart failure 2 d echo done 01/01 showed EF 60-65%, with moderate to severe tricuspid regurg Some improvement following lasix and albumin (11) Hypotension: Plan: Now resolved Discontinue IV Fluids due to generalized edema Plan Disposition: Obs -admit to [facility] telemetry DNR/DNI T2DM diet VTE PPx: SCDs Admission and Anticipated Discharge Date Admission Date: January 01, 2023 Subjective patient seen and examined, he has been declining over the past couple of days, he has been refusiong food and oral medicine Review of Systems Review of Systems: All systems reviewed are negative, apart from the ones contained in the history. Physical Exam Physical Exam: The patient is awake, alert and oriented 3, well developed and well nourished, normocephalic and atraumatic, lying in bed and in no acute distress. HEENT--PERRL, EOMI, mucous membranes and oropharynx mildly dry Neck--supple. No JVD. No bruits. Thyroid normal, trachea midline, no adenopathy. Heart--normal S1 and S2. No murmurs, rubs or gallops. Lungs--clear bilaterally, no respiratory distress, no accessory muscle use. Abdomen--normal bowel sounds and soft. Mild epigastric and left sided abdominal pain Extremities--bilateral pitting leg edema Dermatologic--excoriation of skin Neurologic--cranial nerves II through XII grossly intact. Rheumatologic--normal range of motion. Psychiatric--normal affect. Results & Data Results & Data Vital Signs (Past 12 Hours) Vital Signs Temp Pulse Pulse Resp BP Pulse Ox O2 Del Method 01/05/23 08:00 Nasal Cannula 01/05/23 07:35 98.1 F 84 18 136/84 99 Nasal Cannula 01/05/23 07:00 77 01/05/23 03:57 97.5 F L 88 14 129/84 99 Nasal Cannula 01/05/23 03:22 97.5 F L 91 H 18 150/71 H 97 Nasal Cannula 01/04/23 23:33 97.5 F L 91 H 18 163/98 H 92 Nasal Cannula O2 Flow Rate 01/05/23 08:00 2 01/05/23 07:35 2 01/05/23 07:00 01/05/23 03:57 2 01/05/23 03:22 2 01/04/23 23:33 2 PG Care Time/CCT Total # of Minutes Spent Total Time Spent with Patient: Total time spent is greater than 50% in coordination of care (as documented) at patient's floor/unit and/or counseling patient: Coding Level of Care Code 90610 SUB INP/OBS CARE 2/35MIN Diagnoses Bacteremia R78.81 Fatigue R53.83 Prostate cancer metastatic to bone C61; C79.51 DMII (diabetes mellitus, type 2) E11.9 Atrial fibrillation I48.91 Adrenal insufficiency E27.40 Spinal stenosis M48.00 Spinal region: unspecified Urinary tract infection N39.0 Physical deconditioning R53.81 Anasarca R60.1 Hypotension I95.9 Time Spent (min) 35 (7) Spinal stenosis Spinal region: unspecified Qualified Code(s): M48.00 - Spinal stenosis, site unspecified
--- NOTE | 2023-01-05 11:25 | Orthopedic Progress Note ---
Date of Service January 05, 2023 Assessment & Plan (1) Physical deconditioning: Plan: At this time we will maintain the MATTHEW drains. We will wait for his electrolytes to return to normal state and then attempt therapy. Admission and Anticipated Discharge Date Admission Date: January 01, 2023 Subjective Patient is resting and difficult to arouse at this time. Physical Exam Physical Exam: On exam he does have peripheral edema. Drains are producing diminished output but still functioning. His dressings have been changed by the nurse. Results & Data Vital Signs (Past 12 Hours) Vital Signs Temp Pulse Pulse Resp BP Pulse Ox O2 Del Method 01/05/23 08:00 Nasal Cannula 01/05/23 07:35 36.7 C 84 18 136/84 99 Nasal Cannula 01/05/23 07:00 77 01/05/23 03:57 36.4 C L 88 14 129/84 99 Nasal Cannula 01/05/23 03:22 36.4 C L 91 H 18 150/71 H 97 Nasal Cannula 01/04/23 23:33 36.4 C L 91 H 18 163/98 H 92 Nasal Cannula O2 Flow Rate 01/05/23 08:00 2 01/05/23 07:35 2 01/05/23 07:00 01/05/23 03:57 2 01/05/23 03:22 2 01/04/23 23:33 2 Queries Orthopedic Spine Obesity: Yes
[2023-01-05] MEDS ORDERED: TPN/PPN CONSULT PHARMACY STA (14:13)
[2023-01-05] MEDS ORDERED: CLINOLIPID 20% IV FAT EMULSION 250 ML IV SCH (16:00)
[2023-01-05] MEDS ORDERED: CENTRAL TPN IV SCH (16:00)
[2023-01-05] MEDS ORDERED: [UNRECOGNIZED DRUG - OTHER] IV SCH (16:00)
[2023-01-05] MEDS: METOCLOPRAMIDE HCL INJ 5 MG/ML 2 ML VIAL IV PRN (16:09)
[2023-01-05] MEDS ORDERED: STOP CLINOLIPID SCH (22:00)
[2023-01-06] MEDS: CEFEPIME 2,000 MG in SYRINGE 0 ML IV SCH ×3 (02:28→17:23)
[2023-01-06] MEDS: METOCLOPRAMIDE HCL INJ 5 MG/ML 2 ML VIAL IV PRN ×2 (03:18→10:57)
[2023-01-06] MEDS: oxyCODONE HCL IR 5 MG TAB (IMMEDIATE RELEASE) PO PRN (03:19)
[2023-01-06] MEDS: VANCOMYCIN HCL 750 MG in SODIUM CHLORIDE 0.9% 250 ML IV SCH (04:39)
[2023-01-06] MEDS: HEPARIN SOD 5,000 UNIT/0.5 ML VIAL SQ SCH ×2 (05:25→21:31)
[2023-01-06 06:45] LABS: Hematocrit (blood only) 30.8 % (42.0-52.0); Hemoglobin 9.4 g/dl (14.0-18.0); Mean Corpuscular Hemoglobin 29.7 pg (25.0-34.0); Mean Corpuscular Hgb Conc 30.5 g/dL (32.0-36.0); Mean Corpuscular Volume 97.5 fL (80.0-100.0); Mean Platelet Volume 10.5 fL (9.4-12.4); Nucleated RBC # (auto) 0.02 K/uL (0.00-0.12); Nucleated RBC % (auto) 0.3 %; Platelet Count 126 K/uL (130-400); RDW Coefficient of Variation 16.4 % (11.5-14.5); Red Blood Count 3.16 M/uL (4.70-6.10); White Blood Count 6.38 K/ul (4.8-10.8)
[2023-01-06 06:53] LABS: BUN Creatinine Ratio 25.3 (10-20); Calcium 8.5 mg/dl (8.6-10.3); Creatinine Clr Calc Pharmacy 85.9 ml/min; Est GFR (African American) 97.7 ml/min; Est GFR (Non-African American) 84.3 ml/min; Magnesium 1.9 mg/dl (1.7-2.4); Phosphorus 3.2 mg/dl (2.5-4.9); Potassium 2.7 mmol/L (3.5-5.1)
[2023-01-06] MEDS: ONDANSETRON 4 MG OD TAB PO PRN (07:28)
[2023-01-06] MEDS: CALCIUM 600MG + VIT D 400 IU TAB PO SCH (08:15)
[2023-01-06] MEDS: BACLOFEN 10 MG TAB PO SCH ×3 (08:15→13:37)
[2023-01-06] MEDS: MENTHOL-ZINC OXIDE 360 APPLN/120 GM TUBE EXT SCH ×2 (08:15→15:51)
[2023-01-06] MEDS: ATORVASTATIN 20 MG TAB PO SCH (08:15)
[2023-01-06] MEDS: dilTIAZem HCL 180 MG CAPCR PO SCH (08:16)
[2023-01-06] MEDS: CYANOCOBALAMIN (B-12) 500 MCG TABLET PO SCH (08:16)
[2023-01-06] MEDS: FUROSEMIDE 40 MG/4 ML VIAL IV SCH (08:16)
[2023-01-06] MEDS: ADVANCED PROBIOTIC 1250 MG CAPSULE PO SCH (08:17)
[2023-01-06] MEDS: HYDROCORTISONE SOD 50 MG in SYRINGE 0 ML IV SCH ×3 (08:17→21:31)
[2023-01-06] MEDS: LORATADINE 10 MG TAB PO SCH (08:17)
[2023-01-06] MEDS: PANTOprazole 40 MG TAB PO SCH (08:18)
[2023-01-06] MEDS: METOPROLOL SUCC 50MG EXT REL TAB PO SCH (08:18)
[2023-01-06] MEDS: POLYETHYLENE (MIRALAX) 17 GM PACK PO SCH (08:19)
[2023-01-06] MEDS: predniSONE 10 MG TABLET PO SCH (08:19)
[2023-01-06] MEDS: SERTRALINE HCL 100 MG TABLET PO SCH (08:19)
--- NOTE | 2023-01-06 08:48 | Infectious Disease Progress Nt ---
Date of Service January 06, 2023 Assessment & Plan (1) MRSA bacteremia: (2) 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: (3) Fixation hardware in spine: (4) Infection caused by Enterobacter cloacae: (5) Klebsiella infection: (6) Proteus mirabilis infection: (7) Candiduria: Plan Willard Walker is a 77-year-old man with history of prostate cancer with mets to spine, spinal stenosis s/p lumbar decompression with hardware on 11/04/22, recent admission 11/14-11/27/22 [facility] for MRSA bacteremia and epidural abscess (on 6-week course of daptomycin with intended EOT 01/01/23), T2DM, who presents to [facility] from [facility] on 12/30/22 for worsening fatigue, with BCx +MRSA. 12/31 MRI showing continued fluid collections (though improving from prior), s/p I&D of lumbar spine and evacuation of infected seroma 01/01 thus far OR cx with MRSA. ID is consulted for MRSA bacteremia 2/2 MRSA spinal hardware infection, with concern for recent Klebsiella/Enterobacter/Proteus lumbar wound infection as well. Presented with recurrent MRSA bacteremia in the setting of ongoing spinal hardware infection. 12/31 L-spine MRI with decreased size of large fluid collection at laminectomy sites, improving subdural fluid collections in lower thoracic and upper lumbar spine, and increased signal at L3-L4, L4-L5, and L5-S1 disc space levels. He is now s/p lumbar spine I&D on 01/01 (with significant pus and epidural abscess extending over the screws) and massive amounts of purulent fluid removed. 12/31 BCx and 01/01 BCx have reassuringly cleared. TTE without evidence of IE. The patients daptomycin AZAEL is now 4 on 01/01 and was previously an AZAEL of 1 in November. This may have contributed to the patients prior treatment failure, as well as source control. Vancomycins AZAEL has remained 2. Would use vancomycin instead of daptomycin. Would also add rifampin given the patients hardware. Rifampin is typically reserved for after the infection burden is reduced (on 01/06/[address] Velazco that the pt should not have additional major areas of abscess since his washout). 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 Given that the patient received a recent course of levofloxacin, and was on cefepime prior to OR, concerned that these Gram-negatives may be involved as well. Furthermore I discussed with Dr. Benedict Velazco on 01/03/23 that the patients surgery on 01/01 involved his entire lumbar incision and therefore it is possible that the organisms on his wound culture were involved in a deeper infection as well. Would continue vancomycin and cefepime to complete an 8-week minimum course of IV antibiotics, with consideration of extending IV antibiotics per ID clinic evaluation. Would consider 3-6 months of adjunctive therapy with rifampin as well, if tolerating. Please see below for suggested lab monitoring, as well as potential repeat spinal MRI reimaging prior to tentative completion of IV antibiotics. Given that he has hardware involvement, would favor long-term (>6 months, potentially lifelong if tolerating) PO antibiotic suppression therapy for the MRSA component of his infection, after completion of IV antibiotics. ID Problem List: 1.MRSA bacteremia 2.Enterobacter, Klebsiella, Proteus wound infection 3.History of MRSA bacteremia, MRSA epidural abscess, MRSA spinal hardware infection, MRSA post-operative surgical wound 4.Lumbar fixation hardware in place 5.Candiduria Recommendations: - Continue vancomycin (dosed per pharmacy protocol) for an 8-week minimum course (01/01/23-02/26/23) with consideration of extending IV antibiotics per ID clinic evaluation - Continue cefepime 2g IV Q8H for an 8-week minimum course (01/01/23-02/26/23) with consideration of extending IV antibiotics per ID clinic evaluation - Start rifampin 300 mg PO Q12H, likely for 3-6 months if tolerating - Lab monitoring while on antibiotics: weekly CBC w/ diff, weekly CMP, ESR, CRP - After completion of IV antibiotics, would consider long-term PO antibiotic suppression (perhaps doxycycline or once daily linezolid for the MRSA) - Consider repeat MRI spine in ~6-8 weeks ( or week of February) prior to potential end of IV antibiotic course - Recommend outpatient ID follow-up if able - F/u 01/01 OR cx until finalized Plan discussed with hospitalist. Thank you for letting ID participate in the care of this patient. ID will sign off at this time. If questions, please contact the [facility] call center at [phone]. Mckenzie Christensen MD, [facility] Infectious Diseases [facility]/ID Connect ID Connect direct line: [phone] Admission and Anticipated Discharge Date Admission Date: January 01, 2023 Subjective This patient recommendation is based on a telemedicine consult request which was completed asynchronously through chart review and information provided by the primary physician. The patient was not seen or examined today. The evaluation is consultative in nature and all patient care and treatment decisions can either be accepted or rejected by the patient's primary hospital-based treating physician using their own independent medical judgment for their patient. Time Spent Reviewing Chart: 31+ minutes - Afebrile, WBC 6 Results & Data Vital Signs (Past 12 Hours) Vital Signs Temp Pulse Resp BP Pulse Ox O2 Del Method O2 Flow Rate 01/06/23 08:23 36.7 C 75 20 141/81 H 97 Nasal Cannula 2 01/06/23 03:42 36.6 C 75 18 136/87 97 Nasal Cannula 2 01/05/23 23:00 36.6 C 86 20 135/81 96 Nasal Cannula 2 Diagnostic Findings Diagnostics: 01/01 TTE: no vegetation visualized, mild AR, mild-mod MR, mod-severe TR. 12/31/22 L-spine MRI 1. Interval decrease in size in the large fluid collection at the laminectomy sites as described above. The mass effect along the posterior thecal sac has slightly improved but there is persistent severe central canal narrowing at the L4 and L5 levels. 2. Small subdural fluid collections within the lower thoracic and upper lumbar spine have also improved in the interval. There is a small residual anterior subdural collection remaining at the T12-L1 level. 3. Paraspinal and bilateral psoas intramuscular edema persists. 4. Increased fluid signal within the L3-L4, L4-L5, and L5-S1 disc space levels again noted. This is similar to the prior study. No endplate erosive changes to suggest an osteomyelitis at this time. 12/30/22 CTA chest 1. The heart is mildly enlarged. There is severe coronary calcification and moderate mitral calcification. There is reflux of contrast into the IVC and hepatic veins. Consider mild CHF. 2. Lungs are well-inflated. There are linear densities in the perihilar regions and areas of platelet consolidation in both lung bases which may represent atelectasis or pneumonia. 3. The pulmonary arterial tree is well opacified with contrast. No pulmonary emboli are identified. 4. The aortic arch is mildly calcified but nondilated. There is no aneurysm or dissection. Micro: 01/01 BCx x2: NG 01/01 OR g/s many polys, no organisms; bact cx: MRSA (NS dapto AZAEL 4, vanc S AZAEL 2); fungal cx: p 12/31 UCx: C. glabrata, C. albicans 12/31 BCx x2: NG 12/30 BCx x2: 2 of 4 MRSA (NS dapto AZAEL 4, vanc S AZAEL 2, linezolid S AZAEL 2) 12/30 UCx: yeast (not C. albicans/dub) Prior 12/15 wound cx: Klebsiella pneumoniae (S-levo but I-cipro, R-Bactrim), Enterobacter cloacae, Proteus mirabilis 12/11 UCx: C. albicans/dubliniensis, C. glabrata 11/20/22 OR lumbar epidural abscess ; g/s GPC, culture MRSA (S vanc 2, dapt 1, tet) BC 11/14 02/13 bottle MRSA (S vanc 2, dapt 1, tet) 11/14 MRSA BC 11/16 NGTD Antibiotic Summary: vancomycin (12/30-present) cefepime (12/30-present) Prior Cefazolin (01/01) Daptomycin 11/14- 12/31/22 Recent levofloxacin SPECIALIST PHYSICIAN Recent antifungal (?fluconazole) SPECIALIST PHYSICIAN
[2023-01-06] MEDS: POTASSIUM CHLORIDE / WTR 10 MEQ/100 ML PLCT IV SCH ×4 (10:18→13:26)
[2023-01-06] MEDS: INSULIN ASPART PER UNIT CHARGE SQ SCH ×4 (10:18→21:36)
[2023-01-06] MEDS: ABIRATERONE ACETATE PO SCH ×2 (13:27→13:37)
--- NOTE | 2023-01-06 13:28 | Pharmacy Report ---
Pharmacy PK ABX Note - Date of Service January 06, 2023 - Assessment and Plan Assessment 01/06: * Slight bump in SCr noted this morning (0.83 mg/dL vs. 0.59 mg/dL). No updated cultures. Patient remains afebrile w/ no overt leukocytosis. 01/04: Measured trough 23.5 mcg/mL is higher than predicted 20.4 mcg/ml, intermediate model fit. Given high trough, will reduce dose today. Vertebrae culture form 01/01 now with staph species. 01/03: 12/30 Blood cultures 4/ MRSA. Urine culture (indwelling walton) 12/30 Hazel glabrata complex, Hazel albicans/dubliniensis. 12/31 Blood cultures Negative at 48 hours, Vertebrae cultures: no growth, fungal pending. 01/01 blood cultures negative at 24 hours. No visualized vegetation on TTE. Afebrile, normal WBC. ID following. Random level this AM 25.1 does predict therapeutic AUC/AZAEL, however is an intermediate fit. Will obtain timed trough level to further assess dosing. 12/31 77 year old M receiving vancomycin and cefepime for bacteremia. Blood cultures (+) [facility] in 03/16, biofire (+) MRSA. Patient with recent admission for MRSA b acteremia and spinal abscess and was discharged on daptomycin through 01/01. ID consulted. Day #2 of antimicrobial therapy. Plan Vancomycin * Current regimen: 750 mg IV every 12 hours * Random level obtained 01/06/23 resulted as 24.8 mcg/mL. This is predicted to result in supratherapeutic AUC/AZAEL >600 mg/L.hr * Change to 1250 mg IV every 24 hours * Predicted AUC at steady state: 547 mg/L.hr * Will repeat level in the next 48-72 hours if therapy is continued and/or change in patient clinical status Pharmacy will continue to follow and will adjust dose/frequency as necessary. Thank you. Pharmacy has transitioned to AUC monitoring for vancomycin. AUC/AZAEL is the preferred PK/PD target and is associated with decreased risk of nephrotoxicity compared to traditional trough targets.
--- NOTE | 2023-01-06 13:52 | Pharmacy Report ---
Pharmacy Initial PN Consult Nt - Date of Service January 05, 2023 - Scope Pharmacy has been consulted on this date to manage parenteral nutrition orders and order appropriate labs. As part of the Nutrition Support Team Guidelines, pharmacy will work in conjunction with dietary when determining the patients caloric needs. - Subjective * The patient is a 77 year old Male admitted on 01/01/23 for FATIGUE, SOB. * Patient is to receive parenteral nutrition for prolonged NPO status. * Pertinent PMHx: T2DM - Objective Vascular Access: * Patient currently has a central line. Height & Weight (Last Documented) Height 5 ft 6 in Weight 110.7 kg Diet Order(s) 01/01/23 Lunch Diet Intake & Ouput (24hrs) 01/04/23 01/05/23 01/06/23 06:59 06:59 06:59 Intake Total 2130 / 2130 926.667 / 926.667 646.333 / 646.333 Output Total 1959 / 1959 3035 / 3035 Balance 170 / 170 -2108.333 / -2108.333 646.333 / 646.333 Selected Laboratory Results 01/05/23 01/05/23 05:33 12:57 Sodium 144 Potassium 2.5 L* D 3.2 L D Chloride 108 H Carbon Dioxide 28 Anion Gap 8 BUN 14 Creatinine 0.59 L Est GFR ( Amer) 112.4 Est GFR (Non-Af Amer) 97.0 BUN/Creatinine Ratio 23.7 H Glucose 138 H Calcium 9.0 Phosphorus 2.2 L Magnesium 1.[address] - Initial Nutrition Assessment Start: 12/31/22 16:47 Freq: Status: Active Protocol: Document 12/31/22 16:47 (Rec: 12/31/22 17:19 [id number]) - Assessment & Plan Assessment: * Potassium low at 2.5 this AM. Phos low as well at 2.2. Repleted K with 4 K-riders and repeat level was 3.2. * Provider okay with starting TPN at lower than goal macronutrients to prevent refeeding given low K and Phos. * Awaiting dietitians recommendations for macronutrient goals. Plan: * For Day #1 of TPN administration, the following will be ordered: * Macronutrients: * Amino Acids: 67 grams/day * Dextrose: 118 grams/day * Lipids: 50 grams/day * Micronutrients: * Sodium acetate: 40 mEq/day * Potassium phosphate: 30 mMol/day * Potassium acetate: 20 mEq/day * Magnesium sulfate: 8.12 mEq/day * Multivitamins: 10 mL/day * Trace elements: 1 mL/day * Thiamine: 100 mg/day * Total volume of 894 mL will be infused over 24 hours and will provide 1168.6 kcal/day * Labs will be ordered per PN protocol. * Pharmacy will follow and adjust PN orders on a daily basis. Thank you!
[2023-01-06] MEDS: PROMETHAZINE HCL 12.5 MG in SODIUM CHLORIDE 0.9% 50 ML IV PRN ×2 (14:07→23:25)
[2023-01-06] MEDS ORDERED: VANCOMYCIN LEVEL ONE (15:30)
[2023-01-06] MEDS: METOCLOPRAMIDE HCL INJ 5 MG/ML 2 ML VIAL IV SCH ×2 (15:43→21:40)
[2023-01-06] MEDS ORDERED: CENTRAL TPN IV SCH (16:00)
[2023-01-06] MEDS ORDERED: CLINOLIPID 20% IV FAT EMULSION 250 ML IV SCH (16:00)
[2023-01-06] MEDS ORDERED: [UNRECOGNIZED DRUG - OTHER] IV SCH (16:00)
[2023-01-06 17:12] LABS: Base Excess ABG -0.5 mEq/L (-9-1.8); HCO3 ABG 24 mmol/L (19-24); Oxygen Saturation ABG 98.5 % (90-95); PCO2 ABG 39 mmHg (35-46); PO2 ABG 94 mmHg (80-95)
[2023-01-06 17:16] LABS: Allen Test Pos (Pos)
--- NOTE | 2023-01-06 17:27 | Hospitalist Progress Note ---
Date of Service January 06, 2023 Assessment & Plan (1) Bacteremia: Plan: Patient recently had MRSA bacteremia and was just 2 days away from completing a 6-week course of daptomycin. However presented to the hospital on 12/30 with worsening fatigue and poor appetite. 12/31 blood cultures 03/02 growing gram- positive's in clusters. Source most likely his lumbar area due to recent lumbar abscess and removal of hardware . He is now 4 days s/p I&D lumbar spine with evidence of recurrent epidural abscess. He still has MATTHEW drains in situ. Intraoperative cultures MRSA as well. Currently on vancomycin and cefepime. Appreciate infectious diseases and Ortho spine consultation and recommendations. Per ID, "Would continue IV antibiotics to complete an additional 8-week minimum course, with reassessment in ID clinic and consideration of extending IV antibiotics based on clinical status, inflammatory markers, and repeat spine MRI. After completion of IV antibiotics, would consider long-term PO antibiotic suppression (perhaps doxycycline for the MRSA, and could consider additional antibiotic for the Gram negatives). Will also request linezolid susceptibilities for the MRSA in consideration of PO options." (2) Fatigue: Plan: Due to recurrent infection and toxic encephalopathy. Supportive care. Treat underlying conditions. (3) Prostate cancer metastatic to bone: Plan: Stage IV with bone mets. Treated by Dr. Liriano. Continue Zytiga. Chronic pain treated with acetaminophen and Oxycodone (4) DMII (diabetes mellitus, type 2): Plan: Last A1c was 7.7% on 09/24/2022. ADA diet. Glimepiride on hold. Sliding scale insulin coverage as needed. (5) Atrial fibrillation: Plan: Rate controlled; not on systemic anticoagulation. Hold metoprolol, diltiazem in the setting of hypotension. Telemetry (6) Adrenal insufficiency: Plan: Increased prednisone 5 mg --> 10 mg BID. Currently on intravenous hydrocortisone due to poor oral intake. (7) Spinal stenosis: Plan: Hx of lumbar decompression with Dr. Velazco on 11/04/2022. (8) Urinary tract infection: Plan: Chronic indwelling Aaron. Currently on cefepime and vancomycin (9) Physical deconditioning: Plan: Patient has been essentially bedbound since his lumbar surgery. He is physically deconditioned. Continue OT/PT (10) Anasarca: Plan: Etiology is most likely due to low oncortic pressure. 2 d echo done 01/01 showed EF 60-65%, with moderate to severe tricuspid regurg. Improved with intravenous Lasix (11) Hypotension: Plan: Intravenous fluids as needed. (12) Toxic encephalopathy: Plan: Suspected from baclofen started on admission which has been discontinued. Narcotic medication for back pain control is also contributing. Baclofen has been discontinued. Supportive care. No CO2 retention seen on ABGs. Plan Eventual return to [place] care Admission and Anticipated Discharge Date Admission Date: January 01, 2023 Subjective Very lethargic. Probably from accommodation of baclofen and narcotics. Baclofen has been discontinued. All [employer] depressants have been discontinued. Intractable nausea could be baclofen related also. He is now on scheduled Reglan and as needed IV Phenergan. Infectious disease has recommended addition of oral rifampin which will be started when the nausea resolves. He remains on intravenous hydrocortisone for now. Parenteral potassium replacement ordered which necessitates holding TPN for a while. Review of Systems 2 Review of Systems: The patient is unable to answer any questions regarding review of systems at this time Physical Exam 2 Physical Exam: General-very lethargic. Appears to be medication related. No fever HEENT-head atraumatic and normocephalic, pupils equal and reactive to light, extraocular muscles intact Neck-no lymphadenopathy or thyromegaly, trachea midline Chest-scattered rhonchi. No inspiratory rales. No wheezing Cardiac-bradycardic irregular rhythm. Normal S1 and S2 Abdomen-normal bowel sounds, nontender, no hepatosplenomegaly Extremities-1+ peripheral edema both lower extremity Neuro-no apparent focal deficits. Generalized weakness. Psych-cannot assess due to lethargy Results & Data Results & Data Vital Signs (Past 12 Hours) Vital Signs Temp Pulse Resp BP Pulse Ox O2 Del Method O2 Flow Rate 01/06/23 16:00 Nasal Cannula 2 01/06/23 12:17 36.6 C 91 H 18 145/98 H 98 Nasal Cannula 2 01/06/23 09:00 Nasal Cannula 2 01/06/23 08:23 36.7 C 75 20 141/81 H 97 Nasal Cannula 2 Laboratory Results 01/06/23 05:59 01/06/23 05:59 PG Care Time/CCT Total # of Minutes Spent Total Time Spent with Patient: Total time spent is greater than 50% in coordination of care (as documented) at patient's floor/unit and/or counseling patient: Coding Level of Care Code 92425 SUB INP/OBS CARE 50MIN Diagnoses Bacteremia R78.81 Fatigue R53.83 Prostate cancer metastatic to bone C61; C79.51 DMII (diabetes mellitus, type 2) E11.9 Atrial fibrillation I48.91 Adrenal insufficiency E27.40 Spinal stenosis M48.00 Spinal region: unspecified Urinary tract infection N39.0 Physical deconditioning R53.81 Anasarca R60.1 Hypotension I95.9 Toxic encephalopathy G92.9 (7) Spinal stenosis Spinal region: unspecified Qualified Code(s): M48.00 - Spinal stenosis, site unspecified
[2023-01-06] MEDS: ONDANSETRON INJ 2 MG/ML 2 ML VIAL IV PRN (18:03)
[2023-01-06] MEDS ORDERED: levoFLOXacin/D5W 500 MG/100 ML BAG IV SCH (19:30)
--- NOTE | 2023-01-06 20:08 | Palliative Care Consultation ---
Date of Consultation January 06, 2023 Assessment & Plan (1) Generalized weakness: (2) Palliative care by specialist: Met with pt. Provided overview of Palliative Medicine, a subspecialty that provides specialized medical care for people living with a serious illness by offering a focus on quality of life. Palliative Medicine is often conflated with hospice: I advised patient/family that Palliative and hospice can be partners but we are not the same. It is important to understand the difference so that w e may be informed, and not afraid. Palliative Medicine works to improve QOL through reduction of symptom burden/more control over their illness, for both the patient and family. Palliative medicine clinicians are board certified, specially-trained and another member of the patient's medical care team. We often provide an extra layer of support because our care is based on the needs of the patient, not the prognosis; as such, it's appropriate at any age/advancing stage of a serious illness and can be provided along with curative treatment. Palliative Medicine clinicians are also trained in advanced communication methodologies, to facilitate complex discussions about advanced illness planning, which are needed to help assure that the treatment choices match the patient's goals, aka delivering Goal Concordant care. Finally, we discussed that hospice is a visiting nurse service that focuses on care delivered at the very end of life for patients with terminal illness, with life expectancy less than 6 month. Plan * Patient denies any acute pain or dyspnea at the time of this visit. He has significant nausea with some dry heaves but does not wish to have any medication changes. I updated Dr. Parish who plans to stop his Phenergan. * Case discussed with nursing team who advised the patient's family would like to speak with oncology and patient's has been very clear that he wants to pursue all avenues of treatment to "fix the problems" and was not interested in a palliative or comfort focused transition to the plan of care. * There is no family at the bedside at the time of my visit. has been fairly consistent with expressing his wishes further goals of care and patient is intermittently lethargic and unable to consistently express wishes. I was not able to locate an advanced directive on file. At this time I will follow patient peripherally and remain available for reengagement or assistance in family meeting with the primary team and care management on an as-needed basis. I would not be following patient actively or rounding on him daily. Please call or page me if/when needed. Thank you for allowing us to participate in the ongoing care of this patient. Please don't hesitate to call or page with any additional concerns. Dr. Lorna Luna DNP Director, Palliative Care History of Present Illness Reason for Consultation: [facility] Attending Physician: Luiz Parish MD History of Present Illness 77 yo male with complex bacteremia , failed back hardware now removed, prostate ca (adenoca, dx 2014) pt seen bedside he is intermittently confused and dry heaving he tells me he feels like he has to throw up but cannot, it is from him meds and he feels "terrible" when offered IV antiemetic he replied he was sick of being given medications and wanted to be left alone he denies pain or dyspnea, no chest pain or pressure, no dizziness he admits to nausea, no vomiting, +dry heaving, +retching able to tolerate liquids Allergies Allergy/AdvReac Type Severity Reaction Status Date / Time cat dander Allergy Severe CAN CAUSE Verified 12/30/22 20:35 ASTHMA ATTACK-itchy eyes, congestion gabapentin AdvReac Intermediate Hallucinati Verified 12/30/22 20:35 ng tramadol AdvReac Intermediate Hallucinati Verified 12/30/22 20:35 ng Home Medications Medication Instructions Recorded Confirmed Type Daptomcin Iv Solution 800 mg IV DAILY 12/30/22 12/30/22 History Heparin Sod Lock Flush 5 ml IV QS 12/30/22 12/30/22 History L.acidop,casei,lactis,rham-B.lact,donn 2 cap PO QAM 12/30/22 12/30/22 History 625 mg (10 billion cell) capsule (Advanced Probiotic) abiraterone 500 mg tablet 1,000 mg PO QAM 12/30/22 12/30/22 History acetaminophen 325 mg tablet 650 mg PO Q6 PRN Fever Or Pain 12/30/22 12/30/22 History (Tylenol) aluminum-mag hydroxide-simethicone 30 ml PO .Q6 PRN .GI UPSET 12/30/22 12/30/22 History 400 mg-400 mg-40 mg/5 mL oral susp (Mylanta Maximum Strength) atorvastatin 20 mg tablet 20 mg PO .HOLD UNTIL 01/02/23 12/30/22 12/30/22 History baclofen 10 mg tablet 10 mg PO TID 12/30/22 12/30/22 History calcium carbonate 500 mg-vitamin 1 tab PO DAILY 12/30/22 12/30/22 History D3 5 mcg (200 unit) tablet (Calcium 500 + D) cyanocobalamin (vitamin B-12) 1,000 mcg PO QAM 12/30/22 12/30/22 History 1,000 mcg tablet (Vitamin B-12) diltiazem HCl 180 mg 180 mg PO QAM 12/30/22 12/30/22 History tablet,extended release 24 hr doxycycline hyclate 100 mg tablet 100 mg PO .Q12HRS UD 12/30/22 12/30/22 History glimepiride 2 mg tablet 2 mg PO QAM 12/30/22 12/30/22 History insulin lispro 100 unit/mL 0 sliding scale dose subcut ACHS 12/30/22 12/30/22 History subcutaneous cartridge (Humalog U-100 Insulin) ipratropium 0.5 mg-albuterol 3 mg 3 ml inhalation .Q2HR PRN 12/30/22 12/30/22 History (2.5 mg base)/3 mL nebulization Shortness Of Breath Or Wheezing soln ipratropium 0.5 mg-albuterol 3 mg 3 ml inhalation .QID FOR 2WEEKS 12/30/22 12/30/22 History (2.5 mg base)/3 mL nebulization soln levofloxacin 750 mg tablet 750 mg PO .DAILY UD 12/30/22 12/30/22 History loratadine 10 mg capsule 10 mg PO DAILY 12/30/22 12/30/22 History menthol 0.44 %-zinc oxide 20.6 % 1 applic topical QS 12/30/22 12/30/22 History topical ointment (Calmoseptine) metoprolol succinate 200 mg 200 mg PO QAM 12/30/22 12/30/22 History tablet,extended release 24 hr multivitamin 1 tab PO DAILY 12/30/22 12/30/22 History naloxone 0.4 mg/mL injection 0.4 mg IV DIRECTED PRN ams 12/30/22 12/30/22 History solution nitroglycerin 0.4 mg sublingual 0.4 mg sublingual DIRECTED PRN 12/30/22 12/30/22 History tablet (Nitrostat) Chest Pain omeprazole 20 mg tablet,delayed 20 mg PO DAILY 12/30/22 12/30/22 History release ondansetron HCl 4 mg tablet 4 mg PO Q6H PRN Nausea 12/30/22 12/30/22 History polyethylene glycol 3350 17 gram 17 g PO QAM 12/30/22 12/30/22 History oral powder packet (Miralax) prednisone 5 mg tablet 5 mg PO BID 12/30/22 12/30/22 History saliva substitute combo no.9 2 ea PO .Q2HRS PRN .DRY MOUTH 12/30/22 12/30/22 History (Biotene Dry Mouth Oral Rinse mouthwash) sertraline 100 mg tablet 100 mg PO DAILY 12/30/22 12/30/22 History sodium chloride 0.9 % (flush) 10 ml IV QS 12/30/22 12/30/22 History triamcinolone acetonide 0.1 % 1 applic topical DIRECTED 12/30/22 12/31/22 History topical ointment Patient History Medical History Adrenal insufficiency Spinal stenosis Prostate cancer metastatic to bone Atrial fibrillation DX 2019 - FOLLOWS W/ DR. GRANADOS DMII (diabetes mellitus, type 2) IPMN (intraductal papillary mucinous neoplasm) Acute urinary retention Morbid obesity Neurogenic claudication due to lumbar spinal stenosis Balanitis Thrombocytopenia COVID-19 Lumbar spondylosis Ambulatory dysfunction COVID-19 09/2022 requiring hospitalization Fatigue Urinary tract infection Urinary frequency Sacral lesion Prostate nodule Kidney stones Hypercholesterolemia Hydronephrosis of right kidney Androgen-induced osteoporosis Insomnia Resolved Chronic steroid use PROSTATE CANCER Osteoarthritis Ureter injury OBSTRUCTION OF RT URETER 2/2 PROSTATE CA Hyperlipidemia Urinary incontinence Urge incontinence Spinal stenosis Depression Renal insufficiency Urinary retention Resolved Anxiety Psychosis Had hx of depression with psychotic episode - resolved IBS (irritable bowel syndrome) HTN (hypertension) Surgical History History of cataract surgery 2018 - Bilat History of tooth extraction in age 20's History of tonsillectomy as a child History of colonoscopy 2011 (due in 2021) History of prostate biopsy 2014 S/P TURP 2014 Family History Mother , Passed age 60 of sepsis Gallbladder disease Mental disorder Psychological disorder Father , Passed age 89 of sepsis (infected bladder stones) Congestive heart failure Bladder stones Prostate cancer no treatment needed Brother Heart failure Kidney stones Kidney disease Bladder cancer, Onset Age: 75 Myocardial infarction Grandmother (Paternal) , Passed age 93 of old age Breast cancer, Onset Age: 40 double mastectomy and then did well Sister , Passed age 2 of pneumonia No problems noted. Other Has no children Denies family history of Colon cancer Ovarian cancer Social History Smoking Status: Former smoker Tobacco Type: Cigarettes Age Started Using Tobacco: 20; Age Quit Using Tobacco: 39; packs per day: 0.5; Second Hand Exposure: No; Do You Dip or Chew Tobacco: No; Hx Alcohol Use: Yes Alcohol Intake Frequency: Monthly or Less Hx Substance Use: No Preferred Language: Bahamian Communication Ability: Effective Communication Tools: Other Visual Impairment: Limited Hearing Ability: Normal Vehicle Detailer Required: No Beliefs That Will Affect Care: None marital status: Current Living Situation: Spouse Current Living Situation Comment: LIVES W/ OLIVER - current occupational status: retired 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 Other Information That Helps Us Care for You: No Feels Safe at Home: Yes Safety Concerns: Feels Safe At This Time Childhood Exposure to Second-Hand Smoke: No Diet: diabetic caffeine: Yes (1 cup of coffee/day ) during the past year weight has: remained stable Dental Care, Regularly: No Physical Activity Frequency: Does not Exercise Seatbelt Use: always Sunscreen Use: Yes Assistive Devices: Glasses and Oxygen - Continuous Review of Systems Review of Systems: All systems reviewed & are unremarkable except as noted in Subjective Physical Exam Physical Exam: Chronically ill-appearing elderly male, mildly distressed, sitting upright in bed, + dry heaves, + retching, no active vomiting. Bitemporal wasting Pupils equal round and reactive to light, extraocular movements intact Neck is supple, no gross JVD Respiratory effort within acceptable limits, no overt conversational dyspnea, diminished anterior breath sounds S1-S2, + irregular Abdomen distended, mildly tender to palpation, + epigastric tenderness + BLE edema + Intermittently confused, unable to fol low commands. + Tangential, + easily drifts off topic Results & Data Vital Signs (Past 12 Hours) Vital Signs Temp Pulse Pulse Resp BP BP Pulse Ox 01/06/23 19:09 01/06/23 16:00 62 111/77 01/06/23 16:00 01/06/23 15:54 62 95/64 L 01/06/23 15:53 36.3 C L 66 18 91/62 L 99 01/06/23 14:09 68 01/06/23 12:17 36.6 C 91 H 18 145/98 H 98 01/06/23 09:00 01/06/23 08:23 36.7 C 75 20 141/81 H 97 O2 Del Method O2 Flow Rate 01/06/23 19:09 Nasal Cannula 2 01/06/23 16:00 01/06/23 16:00 Nasal Cannula 2 01/06/23 15:54 01/06/23 15:53 Nasal Cannula 2 01/06/23 14:09 01/06/23 12:17 Nasal Cannula 2 01/06/23 09:00 Nasal Cannula 2 01/06/23 08:23 Nasal Cannula 2 Laboratory Results Data reviewed Diagnostic Findings Data reviewed PG Care Time/CCT Total # of Minutes Spent Total Time Spent: 80 Total Time Spent with Patient: Total time spent is greater than 50% in coordination of care (as documented) at patient's floor/unit and/or counseling patient: I spent 80 minutes overall addressing this case: 15 min in medical data review/discussion with referring provider(s) and/or preparation for the visit 20 min in direct interaction with the patient/exam 15 min in Advance Care Planning/Goals of Care discussions as detailed above in note (must be >16min) 15 min in subsequent review and synthesis of assessment and plan 15 min communicating with other providers regarding the patient's case: [place] [address] IN/OBS CONSULT LVL 5,80M Patient Type New History Comprehensive Exam Comprehensive Medical Decision Making High Complexity Diagnoses Generalized weakness R53.1 Palliative care by specialist Z51.5
[2023-01-06] MEDS ORDERED: VANCOMYCIN HCL 1,250 MG in SODIUM CHLORIDE 0.9% 250 ML IV SCH (21:00)
[2023-01-06] MEDS: levoFLOXacin/D5W 750 MG/150 ML BAG IV SCH (21:31)
[2023-01-06] MEDS ORDERED: STOP CLINOLIPID SCH (22:00)
[2023-01-06] MEDS: ACETAMINOPHEN 1,000 MG/100 ML VIAL IV PRN (23:40)
[2023-01-07] MEDS: MENTHOL-ZINC OXIDE 360 APPLN/120 GM TUBE EXT SCH ×4 (00:36→23:00)
[2023-01-07] MEDS: oxyCODONE HCL IR 5 MG TAB (IMMEDIATE RELEASE) PO PRN ×2 (00:59→08:59)
[2023-01-07] MEDS: METOCLOPRAMIDE HCL INJ 5 MG/ML 2 ML VIAL IV SCH ×4 (05:01→22:46)
[2023-01-07] MEDS: ONDANSETRON INJ 2 MG/ML 2 ML VIAL IV PRN ×2 (05:33→14:15)
[2023-01-07 08:20] LABS: Hematocrit (blood only) 32.8 % (42.0-52.0); Hemoglobin 10.6 g/dl (14.0-18.0); Mean Corpuscular Hemoglobin 30.2 pg (25.0-34.0); Mean Corpuscular Hgb Conc 32.3 g/dL (32.0-36.0); Mean Corpuscular Volume 93.4 fL (80.0-100.0); Mean Platelet Volume 10.5 fL (9.4-12.4); Nucleated RBC # (auto) 0.02 K/uL (0.00-0.12); Nucleated RBC % (auto) 0.2 %; Platelet Count 148 K/uL (130-400); RDW Coefficient of Variation 16.5 % (11.5-14.5); RDW Standard Deviation 55.7 fL (36.4-46.3); Red Blood Count 3.51 M/uL (4.70-6.10)
[2023-01-07 08:35] LABS: BUN Creatinine Ratio 27.4 (10-20); Calcium 8.3 mg/dl (8.6-10.3); Creatinine Clr Calc Pharmacy 64.3 ml/min; Est GFR (African American) 71.8 ml/min; Est GFR (Non-African American) 61.9 ml/min; Magnesium 1.9 mg/dl (1.7-2.4); Phosphorus 2.6 mg/dl (2.5-4.9)
[2023-01-07] MEDS: CYANOCOBALAMIN (B-12) 500 MCG TABLET PO SCH (08:59)
[2023-01-07] MEDS: PANTOprazole 40 MG TAB PO SCH (08:59)
[2023-01-07] MEDS: dilTIAZem HCL 180 MG CAPCR PO SCH (09:00)
[2023-01-07] MEDS: HEPARIN SOD 5,000 UNIT/0.5 ML VIAL SQ SCH ×2 (09:01→20:55)
[2023-01-07] MEDS: CALCIUM 600MG + VIT D 400 IU TAB PO SCH (09:01)
[2023-01-07] MEDS: ATORVASTATIN 20 MG TAB PO SCH (09:01)
[2023-01-07] MEDS: INSULIN ASPART PER UNIT CHARGE SQ SCH ×4 (09:02→20:54)
[2023-01-07] MEDS: POLYETHYLENE (MIRALAX) 17 GM PACK PO SCH (09:03)
[2023-01-07] MEDS: HYDROCORTISONE SOD 50 MG in SYRINGE 0 ML IV SCH (09:03)
[2023-01-07] MEDS: ADVANCED PROBIOTIC 1250 MG CAPSULE PO SCH (09:03)
[2023-01-07 09:04] LABS: Basophils # (auto) 0.07 K/uL (0.00-0.20); Basophils % (auto) 0.7 %; Immature Granulocytes # (auto) 0.75 K/uL (0.01-0.20); Immature Granulocytes % (auto) 7.4 %; Lymphocytes # (auto) 1.13 K/uL (1.20-3.40); Lymphocytes % (auto) 11.1 %; Monocytes # (auto) 0.92 K/uL (0.11-0.59); Neutrophils # (auto) 7.33 K/uL (1.40-6.50); Neutrophils % (auto) 71.8 %; Polychromasia 1+
[2023-01-07] MEDS: ABIRATERONE ACETATE PO SCH (12:25)
[2023-01-07] MEDS: rifAMPin 300 MG in DEXTROSE 5% 500 ML IV SCH ×2 (12:25→23:47)
[2023-01-07] MEDS: HYDROCORTISONE SOD 25 MG in SYRINGE 0 ML IV SCH ×2 (15:00→20:55)
[2023-01-07] MEDS ORDERED: CENTRAL TPN IV SCH (16:00)
[2023-01-07] MEDS ORDERED: CLINOLIPID 20% IV FAT EMULSION 250 ML IV SCH (16:00)
[2023-01-07] MEDS ORDERED: [UNRECOGNIZED DRUG - OTHER] IV SCH (16:00)
--- NOTE | 2023-01-07 16:04 | Hospitalist Progress Note ---
Date of Service January 07, 2023 Assessment & Plan (1) Bacteremia: Plan: Patient recently had MRSA bacteremia and was just 2 days away from completing a 6-week course of daptomycin. However presented to the hospital on 12/30 with worsening fatigue and poor appetite. 12/31 blood cultures 03/02 growing gram- positive's in clusters. Source most likely his lumbar area due to recent lumbar abscess and removal of hardware . He is now 4 days s/p I&D lumbar spine with evidence of recurrent epidural abscess. He still has MATTHEW drains in situ. Intraoperative cultures MRSA as well. Currently on vancomycin and cefepime. Appreciate infectious diseases and Ortho spine consultation and recommendations. Per ID, "Would continue IV antibiotics to complete an additional 8-week minimum course, with reassessment in ID clinic and consideration of extending IV antibiotics based on clinical status, inflammatory markers, and repeat spine MRI. After completion of IV antibiotics, would consider long-term PO antibiotic suppression (perhaps doxycycline for the MRSA, and could consider additional antibiotic for the Gram negatives). Will also request linezolid susceptibilities for the MRSA in consideration of PO options." (2) Fatigue: Plan: Due to recurrent infection and toxic encephalopathy. Supportive care. Treat underlying conditions. (3) Prostate cancer metastatic to bone: Plan: Stage IV with bone mets. Treated by Dr. Liriano. Continue Zytiga. Chronic pain treated with acetaminophen and Oxycodone (4) DMII (diabetes mellitus, type 2): Plan: Last A1c was 7.7% on 09/24/2022. ADA diet. Glimepiride on hold. Sliding scale insulin coverage as needed. (5) Atrial fibrillation: Plan: Rate controlled; not on systemic anticoagulation. Hold metoprolol, diltiazem in the setting of hypotension. Telemetry (6) Adrenal insufficiency: Plan: Increased prednisone 5 mg --> 10 mg BID. Currently on intravenous hydrocortisone due to poor oral intake. (7) Spinal stenosis: Plan: Hx of lumbar decompression with Dr. Velazco on 11/04/2022. (8) Urinary tract infection: Plan: Chronic indwelling Aaron. Currently on Levaquin and vancomycin (9) Physical deconditioning: Plan: Patient has been essentially bedbound since his lumbar surgery. He is physically deconditioned. Continue OT/PT (10) Anasarca: Plan: Etiology is most likely due to low oncortic pressure. 2 d echo done 01/01 showed EF 60-65%, with moderate to severe tricuspid regurg. Improved with intravenous Lasix (11) Hypotension: Plan: Intravenous fluids as needed. (12) Toxic encephalopathy: Plan: Improved after baclofen discontinued. Supportive care. Narcotic medication for back pain control is also contributing. No CO2 retention seen on ABGs. Plan Eventual return to [place] care Admission and Anticipated Discharge Date Admission Date: January 01, 2023 Subjective The patient is now awake since baclofen discontinued. He refused his oral medications this morning however. He does seem to be alert but is very weak. Hopefully his mental status will continue to improve. Significant other is at the bedside and we had a lengthy discussion. Palliative care will no longer be seeing the patient because it is not necessary. Intravenous steroid replacement has been down titrated. Rifampin has been started intravenously. Review of Systems 2 Review of Systems: Constitutional-no fever or chills ENT-no blurred vision, no double vision, no epistaxis, no sore throat Respiratory-no cough, no wheezing, no shortness of breath Cardiac-no palpitations, no chest pain, no syncope GI-no nausea, vomiting, diarrhea, melena, hematochezia -no urinary retention, no urinary incontinence, no dysuria, no hematuria Musculoskeletal-nonpitting edema bilateral lower extremities below the knees Skin-scattered ecchymoses both arms Neuro-generalized weakness Psych-flat affect Physical Exam 2 Physical Exam: General-now awake but very weak. No fever HEENT-head atraumatic and normocephalic, pupils equal and reactive to light, extraocular muscles intact Neck-no lymphadenopathy or thyromegaly, trachea midline Chest-scattered rhonchi. No inspiratory rales. No wheezing Cardiac-bradycardia has resolved. Normal S1 and S2 Abdomen-normal bowel sounds, nontender, no hepatosplenomegaly Extremities-1+ peripheral edema both lower extremity below the knees Neuro-no apparent focal deficits. Generalized weakness. Psych-flat affect Results & Data Results & Data Vital Signs (Past 12 Hours) Vital Signs Temp Pulse Resp BP Pulse Ox O2 Del Method O2 Flow Rate 01/07/23 15:34 36.5 C 91 H 18 168/93 H 98 Room Air 01/07/23 11:24 36.9 C 92 H 18 158/93 H 96 Nasal Cannula 2 01/07/23 08:11 Nasal Cannula 2 01/07/23 07:21 36.7 C 93 H 18 153/103 H 97 Nasal Cannula 2 Laboratory Results 01/07/23 07:35 01/07/23 07:35 PG Care Time/CCT Total # of Minutes Spent Total Time Spent with Patient: Total time spent is greater than 50% in coordination of care (as documented) at patient's floor/unit and/or counseling patient: Coding Level of Care Code 23750 SUB INP/OBS CARE 3/50MIN Diagnoses Bacteremia R78.81 Fatigue R53.83 Prostate cancer metastatic to bone C61; C79.51 DMII (diabetes mellitus, type 2) E11.9 Atrial fibrillation I48.91 Adrenal insufficiency E27.40 Spinal stenosis M48.00 Spinal region: unspecified Urinary tract infection N39.0 Physical deconditioning R53.81 Anasarca R60.1 Hypotension I95.9 Toxic encephalopathy G92.9 (7) Spinal stenosis Spinal region: unspecified Qualified Code(s): M48.00 - Spinal stenosis, site unspecified
--- NOTE | 2023-01-07 20:32 | CT Scan Report ---
Exam(s): CT ABDOMEN + PELVIS Without Contrast EXAM: CT Abdomen and Pelvis Without Intravenous Contrast CLINICAL HISTORY: Reason for exam: intractable nausea. TECHNIQUE: Axial computed tomography images of the abdomen and pelvis without intravenous contrast. CTDI is 28.14 mGy and DLP is 1591.82 mGy-cm. Automated exposure control was utilized for the study. A dose lowering technique was utilized adhering to the principles of ALARA. COMPARISON: No relevant prior studies available. FINDINGS: Lung bases: Unremarkable. No mass. No consolidation. ABDOMEN: Liver: Unremarkable. Gallbladder and bile ducts: Unremarkable. No calcified stones. No ductal dilation. Pancreas: Unremarkable. No ductal dilation. Spleen: Unremarkable. No splenomegaly. Adrenals: Unremarkable. No mass. Kidneys and ureters: Severe RIGHT renal atrophy with severe hydronephrosis. Small calcification in the distal ureter may be partially obstructing stone measuring 2 mm. Stomach and bowel: Diverticulosis, without acute diverticulitis. No small bowel obstruction. No free intraperitoneal air. PELVIS: Appendix: No findings to suggest acute appendicitis. Bladder: Aaron catheter terminates in a decompressed urinary bladder. Reproductive: Unremarkable as visualized. ABDOMEN and PELVIS: Intraperitoneal space: Unremarkable. No free air. No significant fluid collection. Bones/joints: Degenerative changes of the spine. No acute fracture. No dislocation. Soft tissues: Multilevel posterior lumbosacral fusion hardware. Overlying midline cutaneous skin jamarcus. Correlate with surgical history. Vasculature: Atherosclerotic changes of the aorta. No abdominal aortic aneurysm. Lymph nodes: Unremarkable. No enlarged lymph nodes. IMPRESSION: 1. Small calcification in the distal ureter may be partially obstructing stone measuring 2 mm. Severe RIGHT renal atrophy with severe hydronephrosis. 2. Aaron catheter terminates in a decompressed urinary bladder. 3. Multilevel posterior lumbosacral fusion hardware. Overlying midline cutaneous skin jamarcus. Correlate with surgical history. 4. Diverticulosis, without acute diverticulitis. No small bowel obstruction. No free intraperitoneal air. Electronically signed by: Robin Casarez MD 01/07/23 20:30 PM
[2023-01-07] MEDS: PROMETHAZINE HCL 12.5 MG in SODIUM CHLORIDE 0.9% 50 ML IV PRN (20:55)
[2023-01-07] MEDS: levoFLOXacin/D5W 750 MG/150 ML BAG IV SCH (20:56)
[2023-01-07] MEDS: ACETAMINOPHEN 1,000 MG/100 ML VIAL IV PRN (21:08)
[2023-01-07] MEDS: STOP CLINOLIPID SCH (22:28)
[2023-01-08] MEDS: METOCLOPRAMIDE HCL INJ 5 MG/ML 2 ML VIAL IV SCH ×4 (04:30→21:46)
[2023-01-08 05:31] LABS: BUN Creatinine Ratio 34.8 (10-20); Calcium 8.3 mg/dl (8.6-10.3); Creatinine Clr Calc Pharmacy 64.8 ml/min; Est GFR (African American) 72.5 ml/min; Est GFR (Non-African American) 62.6 ml/min; Potassium 3.3 mmol/L (3.5-5.1)
[2023-01-08 05:45] LABS: Hematocrit (blood only) 33.2 % (42.0-52.0); Hemoglobin 10.7 g/dl (14.0-18.0); Mean Corpuscular Hemoglobin 30.9 pg (25.0-34.0); Mean Corpuscular Hgb Conc 32.2 g/dL (32.0-36.0); Mean Platelet Volume 10.3 fL (9.4-12.4); Platelet Count 143 K/uL (130-400); RDW Coefficient of Variation 16.1 % (11.5-14.5); RDW Standard Deviation 56.7 fL (36.4-46.3); Red Blood Count 3.46 M/uL (4.70-6.10); White Blood Count 8.71 K/ul (4.8-10.8)
[2023-01-08 06:43] LABS: Basophils # (auto) 0.05 K/uL (0.00-0.20); Basophils % (auto) 0.6 %; Eosinophils # (auto) 0.02 K/uL (0.00-0.50); Eosinophils % (auto) 0.2 %; Immature Granulocytes # (auto) 0.54 K/uL (0.01-0.20); Immature Granulocytes % (auto) 6.2 %; Lymphocytes # (auto) 1.05 K/uL (1.20-3.40); Lymphocytes % (auto) 12.1 %; Monocytes # (auto) 0.77 K/uL (0.11-0.59); Monocytes % (auto) 8.8 %; Neutrophils # (auto) 6.28 K/uL (1.40-6.50); Neutrophils % (auto) 72.1 %; Polychromasia 1+
--- NOTE | 2023-01-08 07:24 | XRay Report ---
XR chest 1V portable CLINICAL HISTORY: Hypoxia. COMPARISON STUDY: Chest CT and chest radiograph January 04, 2023. FINDINGS: A right PICC is in place. Low lung volumes are again noted with elevation of the right shashi diaphragm. There is no pneumothorax. There are trace bilateral pleural effusions. Bibasilar opacities favor atelectasis. Cardiomegaly is again noted. Pulmonary vascular congestion is unchanged. IMPRESSION: 1. No change in appearance of the chest. Cardiomegaly with pulmonary vascular congestion. 2. Trace bilateral pleural effusions. 3. Low lung volumes with elevation of the right hemidiaphragm. ACT 112: Negative or not required by law. Electronically signed by: Americo Woodard M.D. 01/08/2023 7:23 AM
[2023-01-08] MEDS: CALCIUM 600MG + VIT D 400 IU TAB PO SCH (09:53)
[2023-01-08] MEDS: ATORVASTATIN 20 MG TAB PO SCH (09:53)
[2023-01-08] MEDS: POLYETHYLENE (MIRALAX) 17 GM PACK PO SCH (09:54)
[2023-01-08] MEDS: ADVANCED PROBIOTIC 1250 MG CAPSULE PO SCH (09:54)
[2023-01-08] MEDS: CYANOCOBALAMIN (B-12) 500 MCG TABLET PO SCH (09:54)
[2023-01-08] MEDS: dilTIAZem HCL 180 MG CAPCR PO SCH (09:54)
[2023-01-08] MEDS: PANTOprazole 40 MG TAB PO SCH (09:54)
[2023-01-08] MEDS: INSULIN ASPART PER UNIT CHARGE SQ SCH ×4 (10:00→20:30)
[2023-01-08] MEDS: ABIRATERONE ACETATE PO SCH (10:01)
[2023-01-08] MEDS: MENTHOL-ZINC OXIDE 360 APPLN/120 GM TUBE EXT SCH ×2 (10:01→17:23)
[2023-01-08] MEDS: HEPARIN SOD 5,000 UNIT/0.5 ML VIAL SQ SCH ×2 (10:01→20:31)
[2023-01-08] MEDS: HYDROCORTISONE SOD 25 MG in SYRINGE 0 ML IV SCH ×3 (10:01→20:13)
[2023-01-08] MEDS: rifAMPin 300 MG in DEXTROSE 5% 500 ML IV SCH ×2 (11:00→22:55)
[2023-01-08] MEDS: PROMETHAZINE HCL 12.5 MG in SODIUM CHLORIDE 0.9% 50 ML IV PRN ×2 (13:48→20:41)
[2023-01-08] MEDS: POTASSIUM CHLORIDE / WTR 10 MEQ/100 ML PLCT IV SCH ×3 (15:24→17:24)
--- NOTE | 2023-01-08 15:31 | Pharmacy Report ---
Pharmacy PK ABX Note - Date of Service January 08, 2023 - Assessment and Plan Assessment 01/08: * SCr elevated again today at 1.12 mg/dL * Last dose of vancomycin was evening of 01/06/23, no dose yesterday * Cefepime changed to levofloxacin 750 mg IV q24h, Rifampin initiated yesterday (01/07) * Remains on TPN 01/06: * Slight bump in SCr noted this morning (0.83 mg/dL vs. 0.59 mg/dL). No updated cultures. Patient remains afebrile w/ no overt leukocytosis. 01/04: Measured trough 23.5 mcg/mL is higher than predicted 20.4 mcg/ml, intermediate model fit. Given high trough, will reduce dose today. Vertebrae culture form 01/01 now with staph species. 01/03: 12/30 Blood cultures / MRSA. Urine culture (indwelling walton) 12/30 Hazel glabrata complex, Hazel albicans/dubliniensis. 12/31 Blood cultures Negative at 48 hours, Vertebrae cultures: no growth, fungal pending. 01/01 blood cultures negative at 24 hours. No visualized vegetation on TTE. Afebrile, normal WBC. ID following. Random level this AM 25.1 does predict therapeutic AUC/AZAEL, however is an intermediate fit. Will obtain timed trough level to further assess dosing. 12/31 77 year old M receiving vancomycin and cefepime for bacteremia. Blood cultures (+) [facility] in 03/16, biofire (+) MRSA. Patient with recent admission for MRSA bacteremia and spinal abscess and was discharged on daptomycin through 01/01. ID consulted. Day #9 of antimicrobial therapy. Plan Vancomycin * Current regimen: 1250 mg IV every 24 hours (last dose on 01/07 @0036) * Random levels obtained 01/08/23 resulted as 22.8 mcg/mL @0458 and 19.8 mcg/mL @1415. * Predicted elimination constant of 0.83459 hr-1, although this value will likely change with fluctuating renal function * Predicted vancomycin level @0700 on 01/09 will be ~16 mcg/mL - will re-dose 750 mg IV daily at that time * Will reassess renal function in AM and order follow-up level as appropriate Pharmacy will continue to follow and will adjust dose/frequency as necessary. Thank you. Pharmacy has transitioned to AUC monitoring for vancomycin. AUC/AZAEL is the preferred PK/PD target and is associated with decreased risk of nephrotoxicity compared to traditional trough targets.
[2023-01-08] MEDS ORDERED: [UNRECOGNIZED DRUG - OTHER] IV SCH (16:00)
[2023-01-08] MEDS ORDERED: CENTRAL TPN IV SCH (16:00)
[2023-01-08] MEDS ORDERED: CLINOLIPID 20% IV FAT EMULSION 250 ML IV SCH (16:00)
--- NOTE | 2023-01-08 16:30 | Hospitalist Progress Note ---
Date of Service January 08, 2023 Assessment & Plan (1) Bacteremia: Plan: Patient recently had MRSA bacteremia and was just 2 days away from completing a 6-week course of daptomycin. However presented to the hospital on 12/30 with worsening fatigue and poor appetite. 12/31 blood cultures 03/02 growing gram- positive's in clusters. Source most likely his lumbar area due to recent lumbar abscess and removal of hardware . He is now 4 days s/p I&D lumbar spine with evidence of recurrent epidural abscess. He still has MATTHEW drains in situ. Intraoperative cultures MRSA as well. Currently on vancomycin and cefepime. Appreciate infectious diseases and Ortho spine consultation and recommendations. He will need continued intravenous antibiotic therapy at discharge. Rifampin has been added to Levaquin and vancomycin per infectious disease recommendations (2) Fatigue: Plan: Due to recurrent infection and toxic encephalopathy. Supportive care. Treat underlying conditions. (3) Prostate cancer metastatic to bone: Plan: Stage IV with bone mets. Treated by Dr. Liriano. Continue Zytiga. Chronic pain treated with acetaminophen and Oxycodone (4) DMII (diabetes mellitus, type 2): Plan: Last A1c was 7.7% on 09/24/2022. ADA diet. Glimepiride on hold. Sliding scale insulin coverage as needed. (5) Atrial fibrillation: Plan: Rate controlled; not on systemic anticoagulation. Telemetry (6) Adrenal insufficiency: Plan: Steroid-dependent. Currently on intravenous hydrocortisone due to poor oral intake. (7) Spinal stenosis: Plan: Hx of lumbar decompression with Dr. Velazco on 11/04/2022. Instrumentation remains in place (8) Urinary tract infection: Plan: Chronic indwelling Aaron. Currently on Levaquin and vancomycin (9) Physical deconditioning: Plan: Patient has been essentially bedbound since his lumbar surgery. He is physically deconditioned. Continue OT/PT (10) Anasarca: Plan: Etiology is most likely due to low oncortic pressure. 2 d echo done 01/01 showed EF 60-65%, with moderate to severe tricuspid regurg. Improved with intravenous Lasix (11) Hypotension: Plan: Intravenous fluids as needed. Hold antihypertensives as needed (12) Toxic encephalopathy: Plan: Improved after baclofen discontinued. Supportive care. Narcotic medication for back pain control is also contributing. No CO2 retention seen on ABGs. Plan Eventual return to [facility] care. Gastroenterology consultation requested for PEG tube placement Admission and Anticipated Discharge Date Admission Date: January 01, 2023 Subjective Awake but very weak. Oral intake is minimal and he is refusing medications. His significant other is present and we discussed placement of PEG tube for nutrition and medication administration. They both agree to proceed. Gastroenterology consultation requested. TPN will be stopped once tube feedings are initiated. Parenteral potassium replacement continues. He will remain on parenteral steroid therapy until PEG tube is placed. Review of Systems 2 Review of Systems: Constitutional-no fever or chills ENT-no blurred vision, no double vision, no epistaxis, no sore throat Respiratory-no cough, no wheezing, no shortness of breath Cardiac-no palpitations, no chest pain, no syncope GI-no nausea, vomiting, diarrhea, melena, hematochezia -no urinary retention, no urinary incontinence, no dysuria, no hematuria Musculoskeletal-nonpitting edema bilateral lower extremities below the knees Skin-scattered ecchymoses both arms Neuro-generalized weakness Psych-flat affect Physical Exam 2 Physical Exam: General-now awake but very weak. No fever HEENT-head atraumatic and normocephalic, pupils equal and reactive to light, extraocular muscles intact Neck-no lymphadenopathy or thyromegaly, trachea midline Chest-scattered rhonchi. No inspiratory rales. No wheezing Cardiac-bradycardia has resolved. Normal S1 and S2 Abdomen-normal bowel sounds, nontender, no hepatosplenomegaly Extremities-1+ peripheral edema both lower extremity below the knees Neuro-no apparent focal deficits. Generalized weakness. Psych-flat affect Results & Data Results & Data Vital Signs (Past 12 Hours) Vital Signs Temp Pulse Resp BP BP Pulse Ox O2 Del Method 01/08/23 15:44 36.8 C 68 16 121/66 98 Nasal Cannula 01/08/23 11:42 36.7 C 109 H 20 149/104 H 96 Nasal Cannula 01/08/23 07:52 36.5 C 115 H 16 152/96 H 96 Nasal Cannula 01/08/23 04:45 37 C 105 H 22 156/106 H 99 Nasal Cannula O2 Flow Rate 01/08/23 15:44 2 01/08/23 11:42 2 01/08/23 07:52 2 01/08/23 04:45 2 Laboratory Results 01/08/23 04:58 01/08/23 04:58 PG Care Time/CCT Total # of Minutes Spent Total Time Spent with Patient: Total time spent is greater than 50% in coordination of care (as documented) at patient's floor/unit and/or counseling patient: Coding Level of Care Code 19354 SUB INP/OBS CARE 3/50MIN Diagnoses Bacteremia R78.81 Fatigue R53.83 Prostate cancer metastatic to bone C61; C79.51 DMII (diabetes mellitus, type 2) E11.9 Atrial fibrillation I48.91 Adrenal insufficiency E27.40 Spinal stenosis M48.00 Spinal region: unspecified Urinary tract infection N39.0 Physical deconditioning R53.81 Anasarca R60.1 Hypotension I95.9 Toxic encephalopathy G92.9 (7) Spinal stenosis Spinal region: unspecified Qualified Code(s): M48.00 - Spinal stenosis, site unspecified
[2023-01-08] MEDS: ACETAMINOPHEN 1,000 MG/100 ML VIAL IV PRN (20:13)
[2023-01-08] MEDS: ONDANSETRON INJ 2 MG/ML 2 ML VIAL IV PRN (20:13)
[2023-01-08] MEDS ORDERED: VANCOMYCIN HCL 750 MG in SODIUM CHLORIDE 0.9% 250 ML IV SCH (21:00)
[2023-01-08] MEDS: levoFLOXacin/D5W 750 MG/150 ML BAG IV SCH (21:05)
[2023-01-09] MEDS: MENTHOL-ZINC OXIDE 360 APPLN/120 GM TUBE EXT SCH ×4 (00:14→23:22)
[2023-01-09] MEDS: STOP CLINOLIPID SCH ×2 (00:22→21:41)
[2023-01-09] MEDS ORDERED: dilTIAZem HCl 5 MG/ML 5 ML VIAL IV STA (03:27)
[2023-01-09] MEDS ORDERED: METOPROLOL TARTRATE 1 MG/ML VIAL IV STA (03:39)
[2023-01-09] MEDS: METOCLOPRAMIDE HCL INJ 5 MG/ML 2 ML VIAL IV SCH ×2 (03:57→11:08)
[2023-01-09 06:13] LABS: Hematocrit (blood only) 33.4 % (42.0-52.0); Hemoglobin 11.4 g/dl (14.0-18.0); Mean Corpuscular Hemoglobin 32.2 pg (25.0-34.0); Mean Corpuscular Hgb Conc 34.1 g/dL (32.0-36.0); Mean Corpuscular Volume 94.4 fL (80.0-100.0); Mean Platelet Volume 10.9 fL (9.4-12.4); Platelet Count 160 K/uL (130-400); RDW Coefficient of Variation 16.1 % (11.5-14.5); RDW Standard Deviation 56.1 fL (36.4-46.3); Red Blood Count 3.54 M/uL (4.70-6.10); White Blood Count 8.06 K/ul (4.8-10.8)
[2023-01-09 07:21] LABS: Basophils # (auto) 0.05 K/uL (0.00-0.20); Basophils % (auto) 0.6 %; Eosinophils # (auto) 0.07 K/uL (0.00-0.50); Eosinophils % (auto) 0.9 %; Immature Granulocytes # (auto) 0.57 K/uL (0.01-0.20); Immature Granulocytes % (auto) 7.1 %; Lymphocytes # (auto) 1.01 K/uL (1.20-3.40); Lymphocytes % (auto) 12.5 %; Monocytes # (auto) 0.79 K/uL (0.11-0.59); Monocytes % (auto) 9.8 %; Neutrophils # (auto) 5.57 K/uL (1.40-6.50); Neutrophils % (auto) 69.1 %; Target Cells 1+; Tear Drop Cells 1+
[2023-01-09 07:54] LABS: Magnesium 1.8 mg/dl (1.7-2.4)
[2023-01-09 07:58] LABS: BUN Creatinine Ratio 40.4 (10-20); Calcium 8.5 mg/dl (8.6-10.3); Creatinine Clr Calc Pharmacy 65.5 ml/min; Est GFR (Non-African American) 64.7 ml/min; Phosphorus 2.1 mg/dl (2.5-4.9)
[2023-01-09] MEDS: PROMETHAZINE HCL 12.5 MG in SODIUM CHLORIDE 0.9% 50 ML IV PRN (08:26)
[2023-01-09] MEDS: VANCOMYCIN HCL 750 MG in SODIUM CHLORIDE 0.9% 250 ML IV SCH (08:37)
[2023-01-09] MEDS: CYANOCOBALAMIN (B-12) 500 MCG TABLET PO SCH (08:38)
[2023-01-09] MEDS: ATORVASTATIN 20 MG TAB PO SCH (08:38)
[2023-01-09] MEDS: INSULIN ASPART PER UNIT CHARGE SQ SCH ×4 (08:38→20:48)
[2023-01-09] MEDS: CALCIUM 600MG + VIT D 400 IU TAB PO SCH (08:38)
[2023-01-09] MEDS: HYDROCORTISONE SOD 25 MG in SYRINGE 0 ML IV SCH ×3 (08:39→21:39)
[2023-01-09] MEDS: POLYETHYLENE (MIRALAX) 17 GM PACK PO SCH (08:39)
[2023-01-09] MEDS: PANTOprazole 40 MG TAB PO SCH (08:39)
[2023-01-09] MEDS: HEPARIN SOD 5,000 UNIT/0.5 ML VIAL SQ SCH ×2 (08:39→21:39)
[2023-01-09] MEDS: ADVANCED PROBIOTIC 1250 MG CAPSULE PO SCH (08:39)
[2023-01-09] MEDS: dilTIAZem HCL 180 MG CAPCR PO SCH (08:39)
[2023-01-09] MEDS ORDERED: POTASSIUM PHOS 3 MMOL/1 ML INFUSION IV STA (09:20)
[2023-01-09] MEDS ORDERED: POTASSIUM PHOSPHATE 24 MMOL in SODIUM CHLORIDE 0.9% 500 ML IV ONE (09:30)
[2023-01-09] MEDS ORDERED: FOSAPREPITANT DIMEGLUMINE 150 MG in SODIUM CHLORIDE 0.9% 145 ML IV STA (09:39)
[2023-01-09] MEDS: ABIRATERONE ACETATE PO SCH (11:07)
[2023-01-09] MEDS: rifAMPin 300 MG in DEXTROSE 5% 500 ML IV SCH ×2 (11:07→23:21)
--- NOTE | 2023-01-09 11:15 | Gastrointestinal Consultation ---
Date of Consultation January 09, 2023 Assessment & Plan (1) Nausea: (2) Protein calorie malnutrition: Plan Pt's main concern is severe nausea since Friday of last week. EGD today to r/o esophageal candidiasis or other cause of nausea such as PUD, severe esophagitis. Not a candidate for PEG tube placement as CT films show that the transverse colon is superficial to the stomach. Also, Pt/spouse prefer to avoid PEG, though are willing to have a tube placed if absolutely necessary. If enteral feeding tube is needed, would consider NG or consult surgery for placement of jejunal tube. Sopalamine patch. Zofran prn. Will DC Phenergan while on Sopalamine (combination too sedating). Will DC metoclopramide (not effective). Unable to try Emend while on Rifampin). Encourage pt to try to eat/drink. Further recommendations to follow EGD. Supervising Physician Co-Signing Physician Notes Attending attestation I have seen, examined this patient, and agree with the findings and above by our mid-level provider ARABELLA Vazquez, with the following additions: Patient with nausea and not inability to eat, PEG does not look technically feasible due to overlying transverse colon Will plan for EGD, evaluate for 1:1 and see if can find reversible causese for nause History of Present Illness Reason for Consultation: PEG tube Requesting Physician: Dr. Parish Attending Physician: Luiz Parish MD History of Present Illness Mr. Willard Walker is a 77-year-old male patient of Dr. Kings Rios with a history of prostate cancer with mets to the bone, DM2, adrenal insufficiency, candiduria, A-fib (not anticoagulated), who has not been well since September. At that time he had COVID. He improved and underwent lumbar spine surgery in October, then unfortunately experienced sepsis (MRSA bacteremia), being hospitalized or in rehab most of November and December, most recently on IV Bactrim. He was admitted here again on 12/30/22 for hypotension. Since last Friday, he has had severe, intractable nausea, with some dry heaving. He is "unable" to take pills or eat because he is too nausea and because taking pills or eating causes dry heaving. He is actually able to swallow water. The pt is oriented when he is awake and alert, but doesn't seem to feel well enough to get much of a history. He was able to tell me, however, that he "wants everything done," and that he is willing to have a PEG if needed. His male spouse Chris is here this morning and provides a much more detailed hx. The spouse tells me that the patient's main problem is nausea. Zofran and Phenergan have only been minimally effective, and nausea is severe again before the end of the dosing interval with either of these medications. He has been on Reglan which they do not believe has helped. GI has been asked to place a PEG tube to supplement his nutrition. Allergies Allergy/AdvReac Type Severity Reaction Status Date / Time cat dander Allergy Severe CAN CAUSE Verified 12/30/22 20:35 ASTHMA ATTACK-itchy eyes, congestion gabapentin AdvReac Intermediate Hallucinati Verified 12/30/22 20:35 ng tramadol AdvReac Intermediate Hallucinati Verified 12/30/22 20:35 ng Home Medications Medication Instructions Recorded Confirmed Type Daptomcin Iv Solution 800 mg IV DAILY 12/30/22 12/30/22 History Heparin Sod Lock Flush 5 ml IV QS 12/30/22 12/30/22 History L.acidop,casei,lactis,rham-B.lact,donn 2 cap PO QAM 12/30/22 12/30/22 History 625 mg (10 billion cell) capsule (Advanced Probiotic) abiraterone 500 mg tablet 1,000 mg PO QAM 12/30/22 12/30/22 History acetaminophen 325 mg tablet 650 mg PO Q6 PRN Fever Or Pain 12/30/22 12/30/22 History (Tylenol) aluminum-mag hydroxide-simethicone 30 ml PO .Q6 PRN .GI UPSET 12/30/22 12/30/22 History 400 mg-400 mg-40 mg/5 mL oral susp (Mylanta Maximum Strength) atorvastatin 20 mg tablet 20 mg PO .HOLD UNTIL 01/02/23 12/30/22 12/30/22 History baclofen 10 mg tablet 10 mg PO TID 12/30/22 12/30/22 History calcium carbonate 500 mg-vitamin 1 tab PO DAILY 12/30/22 12/30/22 History D3 5 mcg (200 unit) tablet (Calcium 500 + D) cyanocobalamin (vitamin B-12) 1,000 mcg PO QAM 12/30/22 12/30/22 History 1,000 mcg tablet (Vitamin B-12) diltiazem HCl 180 mg 180 mg PO QAM 12/30/22 12/30/22 History tablet,extended release 24 hr doxycycline hyclate 100 mg tablet 100 mg PO .Q12HRS UD 12/30/22 12/30/22 History glimepiride 2 mg tablet 2 mg PO QAM 12/30/22 12/30/22 History insulin lispro 100 unit/mL 0 sliding scale dose subcut ACHS 12/30/22 12/30/22 History subcutaneous cartridge (Humalog U-100 Insulin) ipratropium 0.5 mg-albuterol 3 mg 3 ml inhalation .Q2HR PRN 12/30/22 12/30/22 History (2.5 mg base)/3 mL nebulization Shortness Of Breath Or Wheezing soln ipratropium 0.5 mg-albuterol 3 mg 3 ml inhalation .QID FOR 2WEEKS 12/30/22 12/30/22 History (2.5 mg base)/3 mL nebulization soln levofloxacin 750 mg tablet 750 mg PO .DAILY UD 12/30/22 12/30/22 History loratadine 10 mg capsule 10 mg PO DAILY 12/30/22 12/30/22 History menthol 0.44 %-zinc oxide 20.6 % 1 applic topical QS 12/30/22 12/30/22 History topical ointment (Calmoseptine) metoprolol succinate 200 mg 200 mg PO QAM 12/30/22 12/30/22 History tablet,extended release 24 hr multivitamin 1 tab PO DAILY 12/30/22 12/30/22 History naloxone 0.4 mg/mL injection 0.4 mg IV DIRECTED PRN ams 12/30/22 12/30/22 History solution nitroglycerin 0.4 mg sublingual 0.4 mg sublingual DIRECTED PRN 12/30/22 12/30/22 History tablet (Nitrostat) Chest Pain omeprazole 20 mg tablet,delayed 20 mg PO DAILY 12/30/22 12/30/22 History release ondansetron HCl 4 mg tablet 4 mg PO Q6H PRN Nausea 12/30/22 12/30/22 History polyethylene glycol 3350 17 gram 17 g PO QAM 12/30/22 12/30/22 History oral powder packet (Miralax) prednisone 5 mg tablet 5 mg PO BID 12/30/22 12/30/22 History saliva substitute combo no.9 2 ea PO .Q2HRS PRN .DRY MOUTH 12/30/22 12/30/22 History (Biotene Dry Mouth Oral Rinse mouthwash) sertraline 100 mg tablet 100 mg PO DAILY 12/30/22 12/30/22 History sodium chloride 0.9 % (flush) 10 ml IV QS 12/30/22 12/30/22 History triamcinolone acetonide 0.1 % 1 applic topical DIRECTED 12/30/22 12/31/22 History topical ointment Patient History Medical History Adrenal insufficiency Spinal stenosis Prostate cancer metastatic to bone Atrial fibrillation DX 2019 - FOLLOWS W/ DR. GRANADOS DMII (diabetes mellitus, type 2) IPMN (intraductal papillary mucinous neoplasm) Acute urinary retention Morbid obesity Neurogenic claudication due to lumbar spinal stenosis Balanitis Thrombocytopenia COVID-19 Lumbar spondylosis Ambulatory dysfunction COVID-19 09/2022 requiring hospitalization Fatigue Urinary tract infection Urinary frequency Sacral lesion Prostate nodule Kidney stones Hypercholesterolemia Hydronephrosis of right kidney Androgen-induced osteoporosis Insomnia Resolved Chronic steroid use PROSTATE CANCER Osteoarthritis Ureter injury OBSTRUCTION OF RT URETER / PROSTATE CA Hyperlipidemia Urinary incontinence Urge incontinence Spinal stenosis Depression Renal insufficiency Urinary retention Resolved Anxiety Psychosis Had hx of depression with psychotic episode - resolved IBS (irritable bowel syndrome) HTN (hypertension) Surgical History History of cataract surgery 2018 - Bilat History of tooth extraction in age 20's History of tonsillectomy as a child History of colonoscopy 2011 (due in 2021) History of prostate biopsy 2014 S/P TURP 2014 Family History Mother , Passed age 60 of sepsis Gallbladder disease Mental disorder Psychological disorder Father , Passed age 89 of sepsis (infected bladder stones) Congestive heart failure Bladder stones Prostate cancer no treatment needed Brother Heart failure Kidney stones Kidney disease Bladder cancer, Onset Age: 75 Myocardial infarction Grandmother (Paternal) , Passed age 93 of old age Breast cancer, Onset Age: 40 double mastectomy and then did well Sister , Passed age 2 of pneumonia No problems noted. Other Has no children Denies family history of Colon cancer Ovarian cancer Social History Smoking Status: Former smoker Tobacco Type: Cigarettes Age Started Using Tobacco: 20; Age Quit Using Tobacco: 39; packs per day: 0.5; Second Hand Exposure: No; Do You Dip or Chew Tobacco: No; Hx Alcohol Use: Yes Alcohol Intake Frequency: Monthly or Less Hx Substance Use: No Preferred Language: Ivorian Communication Ability: Effective Communication Tools: Other Visual Impairment: Limited Hearing Ability: Normal Desktop Publishing Associate Required: No Beliefs That Will Affect Care: None marital status: Current Living Situation: Spouse Current Living Situation Comment: LIVES W/ OLIVER - current occupational status: retired 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 Other Information That Helps Us Care for You: No Feels Safe at Home: Yes Safety Concerns: Feels Safe At This Time Childhood Exposure to Second-Hand Smoke: No Diet: diabetic caffeine: Yes (1 cup of coffee/day ) during the past year weight has: remained stable Dental Care, Regularly: No Physical Activity Frequency: Does not Exercise Seatbelt Use: always Sunscreen Use: Yes Assistive Devices: Glasses and Oxygen - Continuous Review of Systems Review of Systems: ROS: Gen: + Weakness, + fevers (Nov 18), + weight loss Eyes: No eye redness, or pain, no recent vision changes Resp: No SOB, no cough Cardio: No palpitations/irregular beats, no chest pain GI: As per HPI, otherwise negative : Denies pain on urination Skin: + chronic lower leg blisters, redness. No jaundice, itching or new rashes Physical Exam Constitutional: well developed, well nourished, + ill appearing, + obese and + lethargic Eyes: PERRL, conjunctivae normal, anicteric sclerae ENMT: external ear and nose normal, oropharynx normal Neck: trachea midline, no thyromegaly Respiratory: Clear but diminished at bases. Cardiovascular: RRR, no murmur, no edema Gastrointestinal (Abdomen): soft, non-tender, non distended Musculoskeletal: general weakness, no red/swollen joints Skin: dry, red (chronic appearing) skin of the lower legs, black fluid filled blister left lower leg, dressing on pressure lesion on face (from O2). Neurologic: lethargic (especially when Phenergan is in effect), but is able to answer questions when awake, is able to tell his name, where he is and that this is December). No one sided facial drooping. Results & Data Vital Signs (Past 12 Hours) Vital Signs Temp Pulse Pulse Resp BP BP Pulse Ox 01/09/23 08:47 122 H 01/09/23 07:57 36.5 C 132 H 20 141/90 H 98 01/09/23 04:16 108 H 174/109 H 01/09/23 03:56 126 H 01/09/23 02:40 36.4 C L 116 H 18 180/101 H 98 01/08/23 23:45 36.7 C 101 H 20 165/100 H 99 O2 Del Method O2 Flow Rate 01/09/23 08:47 01/09/23 07:57 Nasal Cannula 2 01/09/23 04:16 01/09/23 03:56 01/09/23 02:40 Nasal Cannula 2 01/08/23 23:45 Nasal Cannula 2 Laboratory Results WBC 8, Hb 11.4, HCT 33.4, PLT S160, NA 136, K3.0, CL 103, CO2 25, BUN 44, CR 1.[address] AP 01/07/2023:. Small calcification in the distal ureter may be partially obstructing stone measuring 2 mm. Severe RIGHT renal atrophy with severe hydronephrosis. 2. Aaron catheter terminates in a decompressed urinary bladder. 3. Multilevel posterior lumbosacral fusion hardware. Overlying midline cutaneous skin jamarcus. Correlate with surgical history. 4. Diverticulosis, without acute diverticulitis. No small bowel obstruction. No free intraperitoneal air.
[2023-01-09] MEDS: SCOPOLAMINE 1 MG TDSY TD SCH (11:43)
[2023-01-09] MEDS: METOPROLOL TARTRATE 1 MG/ML VIAL IV SCH ×2 (11:43→18:07)
[2023-01-09] MEDS ORDERED: PROPOFOL IV EMULSION 10 MG/ML 20 ML VIAL IV ONE (12:21)
[2023-01-09] MEDS ORDERED: LIDOCAINE 2% 2 ML VIAL/AMP(20MG/ML) INFIL ONE (12:21)
[2023-01-09] MEDS ORDERED: BENZOCAINE/TETRACAIN/BUTAM 50 APPLN/5 GM CAN EXT ONE (12:28)
[2023-01-09] MEDS ORDERED: PHENYLEPHRINE 100MCG/ML 10ML SYR IV ONE (12:28)
--- NOTE | 2023-01-09 12:28 | Anesthesiology Consultation ---
Date of Service January 09, 2023 Assessment & Plan Chart Review Chart Review: Acceptable Risk for Surgery, Patient NOT seen in Pre Admission Testing and pharmacy order entry technician initiated Consults Requested none Proposed Anesthesia Anesthesia Type: MAC History Surgery Operation Date: 01/01/23 15:20 Proposed Procedures p Incision and Drainage Lumbar - Benedict Velazco DO Operation Date: 01/09/23 17:15 Proposed Procedures p Esophagogastroduodenoscopy Dr Carlson - Cruz Carlson MD Height/Weight Height: 5 ft 6 in Weight: 111.5 kg Allergies Allergy/AdvReac Type Severity Reaction Status Date / Time cat dander Allergy Severe CAN CAUSE Verified 12/30/22 20:35 ASTHMA ATTACK-itchy eyes, congestion gabapentin AdvReac Intermediate Hallucinati Verified 12/30/22 20:35 ng tramadol AdvReac Intermediate Hallucinati Verified 12/30/22 20:35 ng Medications Home Medications Medication Instructions Recorded Confirmed Last Taken Daptomcin Iv Solution 800 mg IV DAILY 12/30/22 12/30/22 12/29/22 13:00 Heparin Sod Lock Flush 5 ml IV QS 12/30/22 12/30/22 Unknown L.acidop,casei,lactis,rham-B.lact,donn 2 cap PO QAM 12/30/22 12/30/22 Unknown 625 mg (10 billion cell) capsule (Advanced Probiotic) abiraterone 500 mg tablet 1,000 mg PO QAM 12/30/22 12/30/22 Unknown acetaminophen 325 mg tablet 650 mg PO Q6 PRN Fever Or Pain 12/30/22 12/30/22 Unknown (Tylenol) aluminum-mag hydroxide-simethicone 30 ml PO .Q6 PRN .GI UPSET 12/30/22 12/30/22 Unknown 400 mg-400 mg-40 mg/5 mL oral susp (Mylanta Maximum Strength) atorvastatin 20 mg tablet 20 mg PO .HOLD UNTIL 01/02/23 12/30/22 12/30/22 Unknown baclofen 10 mg tablet 10 mg PO TID 12/30/22 12/30/22 Unknown calcium carbonate 500 mg-vitamin 1 tab PO DAILY 12/30/22 12/30/22 Unknown D3 5 mcg (200 unit) tablet (Calcium 500 + D) cyanocobalamin (vitamin B-12) 1,000 mcg PO QAM 12/30/22 12/30/22 Unknown 1,000 mcg tablet (Vitamin B-12) diltiazem HCl 180 mg 180 mg PO QAM 12/30/22 12/30/22 Unknown tablet,extended release 24 hr doxycycline hyclate 100 mg tablet 100 mg PO .Q12HRS UD 12/30/22 12/30/22 Unknown glimepiride 2 mg tablet 2 mg PO QAM 12/30/22 12/30/22 Unknown insulin lispro 100 unit/mL 0 sliding scale dose subcut ACHS 12/30/22 12/30/22 Unknown subcutaneous cartridge (Humalog U-100 Insulin) ipratropium 0.5 mg-albuterol 3 mg 3 ml inhalation .Q2HR PRN 12/30/22 12/30/22 Unknown (2.5 mg base)/3 mL nebulization Shortness Of Breath Or Wheezing soln ipratropium 0.5 mg-albuterol 3 mg 3 ml inhalation .QID FOR 2WEEKS 12/30/22 12/30/22 Unknown (2.5 mg base)/3 mL nebulization soln levofloxacin 750 mg tablet 750 mg PO .DAILY UD 12/30/22 12/30/22 12/30/22 12:30 loratadine 10 mg capsule 10 mg PO DAILY 12/30/22 12/30/22 Unknown menthol 0.44 %-zinc oxide 20.6 % 1 applic topical QS 12/30/22 12/30/22 Unknown topical ointment (Calmoseptine) metoprolol succinate 200 mg 200 mg PO QAM 12/30/22 12/30/22 Unknown tablet,extended release 24 hr multivitamin 1 tab PO DAILY 12/30/22 12/30/22 Unknown naloxone 0.4 mg/mL injection 0.4 mg IV DIRECTED PRN ams 12/30/22 12/30/22 Unknown solution nitroglycerin 0.4 mg sublingual 0.4 mg sublingual DIRECTED PRN 12/30/22 12/30/22 Unknown tablet (Nitrostat) Chest Pain omeprazole 20 mg tablet,delayed 20 mg PO DAILY 12/30/22 12/30/22 Unknown release ondansetron HCl 4 mg tablet 4 mg PO Q6H PRN Nausea 12/30/22 12/30/22 Unknown polyethylene glycol 3350 17 gram 17 g PO QAM 12/30/22 12/30/22 Unknown oral powder packet (Miralax) prednisone 5 mg tablet 5 mg PO BID 12/30/22 12/30/22 Unknown saliva substitute combo no.9 2 ea PO .Q2HRS PRN .DRY MOUTH 12/30/22 12/30/22 Unknown (Biotene Dry Mouth Oral Rinse mouthwash) sertraline 100 mg tablet 100 mg PO DAILY 12/30/22 12/30/22 Unknown sodium chloride 0.9 % (flush) 10 ml IV QS 12/30/22 12/30/22 Unknown triamcinolone acetonide 0.1 % 1 applic topical DIRECTED 12/30/22 12/31/22 Unknown topical ointment Active Medications Generic Name Dose Route Start Last Admin Trade Name Freq PRN Reason Stop Dose Admin Abiraterone Acetate 2 each 12/31/22 13:00 01/09/23 11:07 Abiraterone Acetate PO 01/30/23 12:59 Not Given DAILY@1100 [facility] Acetaminophen 650 mg 12/30/22 22:32 01/01/23 18:16 Acetaminophen 325 Mg Tab PO 01/29/23 22:31 650 mg Q6 PRN Administration Fever Or Pain Al Hydrox/Mg Hydrox/Simethicone 30 ml 12/30/22 22:32 01/06/23 12:31 Aluminum/Magnesium/Simeth (Maalox Max) 30 Ml Udc PO 01/29/23 22:31 30 ml Q6H PRN Administration .GI UPSET Atorvastatin Calcium 20 mg 01/02/23 09:00 01/09/23 08:38 Atorvastatin 20 Mg Tab PO 02/01/23 08:59 Not Given DAILY [facility] Calamine/Phenol 1 appln 12/31/22 00:00 01/09/23 08:38 Menthol-Zinc Oxide 360 Appln/120 Gm Tube EXT 01/30/23 00:00 1 appln QS MIESHA Administration Calcium/Vitamin D 1 tab 01/04/23 09:00 01/09/23 08:38 Calcium 600mg + Vit D 400 Iu Tab PO 02/03/23 08:59 Not Given DAILY MIESHA Cyanocobalamin 1,000 mcg 01/04/23 09:00 01/09/23 08:38 Cyanocobalamin (B-12) 500 Mcg Tablet PO 02/03/23 08:59 Not Given QAM MIESHA Diltiazem HCl 180 mg 01/04/23 09:00 01/09/23 08:39 Diltiazem Hcl 180 Mg Capcr PO 02/03/23 08:59 Not Given QAM MIESHA Heparin Sodium (Beef Lung) 5 ml 01/02/23 00:45 01/05/23 11:54 Heparin 10 Unit/Ml 5 Ml Flush FLUSH 02/01/23 00:44 5 ml PRN PRN Administration Flush Heparin Sodium (Porcine) 5,000 units 01/06/23 21:00 01/09/23 08:39 Heparin Sod 5,000 Unit/0.5 Ml Vial SQ 02/05/23 20:59 5,000 units Q12 MIESHA Administration Levofloxacin/Dextrose 750 mg in 150 mls @ 100 mls/hr 01/06/23 19:45 01/08/23 23:05 Levaquin/D5w IV 01/13/23 19:44 Infused Q24H MIESHA Infusion Acetaminophen 1,000 mg in 100 mls @ 400 mls/hr 01/06/23 22:35 01/08/23 20:34 Ofirmev IV 01/09/23 22:34 Infused Q8H PRN Infusion pain or fever Hydrocortisone Sodium 0.5 mls @ 4 mls/min 01/07/23 14:00 01/09/23 08:39 Succinate 25 mg/ Syringe IV 02/06/23 13:59 4 mls/min TID MIESHA Administration Rifampin 300 mg/ Dextrose 505 mls @ 167 mls/hr 01/07/23 11:00 01/09/23 11:07 IV 01/14/23 20:59 167 mls/hr Q12H MIESHA Administration Amino Acids/Dextrose 1,794 ml/ 1,794 mls @ 74.8 mls/hr 01/08/23 16:00 01/08/23 18:18 Nutrition (Parenteral) IV 01/09/23 15:59 74.8 mls/hr .Q24H MIESHA Administration Protocol Vancomycin HCl 750 mg/ Sodium 265 mls @ 200 mls/hr 01/09/23 07:00 01/09/23 10:55 Chloride IV 01/23/23 06:59 Infused Q24H MIESHA Infusion Insulin Aspart 0 units 12/31/22 07:30 01/09/23 08:38 Insulin Aspart Per Unit Charge SQ 01/30/23 07:29 Not Given ACHS MIESHA Lactobacillus Acidophilus 2 cap 12/31/22 09:00 01/09/23 08:39 Advanced Probiotic 1250 Mg Capsule PO 01/30/23 08:59 Not Given QAM MIESHA Metoprolol Tartrate 5 mg 01/09/23 12:00 01/09/23 11:43 Metoprolol Tartrate 1 Mg/Ml Vial IV 02/08/23 11:59 5 mg Q6 MIESHA Administration Miscellaneous 1 each 01/07/23 22:00 01/09/23 00:22 Stop Clinolipid N/A 02/06/23 21:59 1 each @22 MIESHA Administration Ondansetron HCl 4 mg 12/30/22 22:32 01/06/23 07:28 Ondansetron 4 Mg Od Tab PO 01/29/23 22:31 4 mg Q6H PRN Administration Nausea Ondansetron HCl 4 mg 01/04/23 19:52 01/08/23 20:13 Ondansetron Inj 2 Mg/Ml 2 Ml Vial IV 02/03/23 19:51 4 mg Q6H PRN Administration Nausea And Vomiting Oxycodone HCl 5 mg 12/30/22 22:32 01/07/23 08:59 Oxycodone Hcl Ir 5 Mg Tab (Immediate Release) PO 01/13/23 22:31 5 mg Q4H PRN Administration Pain Pantoprazole Sodium 40 mg 12/31/22 09:00 01/09/23 08:39 Pantoprazole 40 Mg Tab PO 01/30/23 08:59 Not Given DAILY MIESHA Polyethylene Glycol 17 gm 12/31/22 09:00 01/09/23 08:39 Polyethylene (Miralax) 17 Gm Pack PO 01/30/23 08:59 Not Given QAM MIESHA Scopolamine 1 mg 01/09/23 11:30 01/09/23 11:43 Scopolamine 1 Mg Tdsy TD 02/08/23 11:29 1 mg Q72H MIESHA Administration NPO Date Last Intake of Fluids: 12/31/22 Time Last Intake of Fluids: 18:00 Date Last Intake of Solids: 12/31/22 Time Last Intake of Solids: 18:00 Past Medical History Medical History Adrenal insufficiency Spinal stenosis Prostate cancer metastatic to bone Atrial fibrillation DX 2019 - FOLLOWS W/ DR. GRANADOS DMII (diabetes mellitus, type 2) IPMN (intraductal papillary mucinous neoplasm) Acute urinary retention Morbid obesity Neurogenic claudication due to lumbar spinal stenosis Balanitis Thrombocytopenia COVID-19 Lumbar spondylosis Ambulatory dysfunction COVID-19 09/2022 requiring hospitalization Fatigue Urinary tract infection Urinary frequency Sacral lesion Prostate nodule Kidney stones Hypercholesterolemia Hydronephrosis of right kidney Androgen-induced osteoporosis Insomnia Resolved Chronic steroid use PROSTATE CANCER Osteoarthritis Ureter injury OBSTRUCTION OF RT URETER 2/2 PROSTATE CA Hyperlipidemia Urinary incontinence Urge incontinence Spinal stenosis Depression Renal insufficiency Urinary retention Resolved Anxiety Psychosis Had hx of depression with psychotic episode - resolved IBS (irritable bowel syndrome) HTN (hypertension) Past Family History Family History Mother , Passed age 60 of sepsis Gallbladder disease Mental disorder Psychological disorder Father , Passed age 89 of sepsis (infected bladder stones) Congestive heart failure Bladder stones Prostate cancer no treatment needed Brother Heart failure Kidney stones Kidney disease Bladder cancer, Onset Age: 75 Myocardial infarction Grandmother (Paternal) , Passed age 93 of old age Breast cancer, Onset Age: 40 double mastectomy and then did well Sister , Passed age 2 of pneumonia No problems noted. Other Has no children Denies family history of Colon cancer Ovarian cancer Past Surgical History Surgical History History of cataract surgery 2018 - Bilat History of tooth extraction in age 20's History of tonsillectomy as a child History of colonoscopy 2011 (due in 2021) History of prostate biopsy 2015 S/P TURP 2014 Social History Smoking Status: Former smoker tobacco type: cigarettes Do You Dip or Chew Tobacco: No Hx Alcohol Use: Yes alcohol intake frequency: holidays/special occasions only Hx Substance Use: No substance use type: does not use Physical Exam Vital Signs Last Vital Signs Temp 36.4 C L 01/09/23 11:53 Pulse 122 H 01/09/23 11:53 Resp 16 01/09/23 11:53 BP 141/93 H 01/09/23 11:53 Pulse Ox 97 01/09/23 11:53 O2 Del Method Nasal Cannula 01/09/23 11:53 O2 Flow Rate 2 01/09/23 11:53 Testing Laboratory Results 01/09/23 05:39 01/09/23 05:39 Hemoglobin A1c 7.0 % (4.5-5.6) H 12/31/22 04:17 12/31/22 06:39 Urine Culture - Final Urine,Indwelling Cath Hazel glabrata complex Hazel albicans/dubliniensis 01/01/23 17:55 Aerobic Blood Culture - Final Blood No growth in Aerobic bottle after 5 days. Anaerobic Blood Culture - Final No growth in Anaerobic bottle after 5 days. 01/01/23 17:55 Aerobic Blood Culture - Final Blood No growth in Aerobic bottle after 5 days. Anaerobic Blood Culture - Final No growth in Anaerobic bottle after 5 days. 01/01/23 11:10 Gram Stain - Final Vertebrae Aerobic and Anaerobic Culture - Final Staph aureus MRSA 12/31/22 22:36 Aerobic Blood Culture - Final Blood No growth in Aerobic bottle after 5 days. Anaerobic Blood Culture - Final No growth in Anaerobic bottle after 5 days. 12/31/22 19:21 Aerobic Blood Culture - Final Blood No growth in Aerobic bottle after 5 days. Anaerobic Blood Culture - Final 12/30/22 14:59 Aerobic Blood Culture - Final Blood Staph aureus MRSA Anaerobic Blood Culture - Final Staph aureus MRSA 01/01/23 11:10 Fungal Smear - Final Vertebrae Fungal Culture - Preliminary No yeast or fungus isolated - Report 1, Additional Report to Follow. 12/30/22 14:59 Aerobic Blood Culture - Final Blood Staph aureus MRSA Anaerobic Blood Culture - Final Staph aureus MRSA 01/09/23 08:15 POC Glucose 150 H Electrocardiogram Date: 12/30/22 Findings: + AFIB @ (@ 83; Non -specific T wave abnormality) Chest X-Ray Date: 12/30/22 Findings: + infiltrate (reticular interstitial opacities) and + atherosclerosis of thoracic aorta Echocardiogram Date: 11/16/22 EF: 60% LV Function: normal RWMA: + none Valvular Disease: + no significant valvular disease, + AI (mild AR) and + MR (mild MR) Mod. TR
--- NOTE | 2023-01-09 13:30 | GI REPORT ---
Patient Name: Willard Walker Procedure Date: 01/09/2023 1:15 PM Date of : 1945 Admit Type: Inpatient Age: 77 Gender: Male Attending MD: Cruz Carlson MD, Procedure: Upper GI endoscopy Providers: Cruz Carlson MD Referring MD: Luiz Parish Indications: Nausea Medicines: Propofol per Anesthesia Complications: No immediate complications. Estimated blood loss: None. Estimated Blood Loss: Estimated blood loss: none. Procedure: Pre-Anesthesia Assessment: - Pre-Anesthesia Assessment: - Prior to the procedure, a History and Physical was performed, and patient medications, allergies and sensitivities were reviewed. The patient's tolerance of previous anesthesia was reviewed. Please see [employer] for complete details. - The risks and benefits of the procedure and the sedation options and risks were discussed with the patient. All questions were answered and informed consent was obtained. - Patient identification and proposed procedure were verified prior to the procedure by the physician and the nurse. The procedure was verified in the pre-procedure area in the procedure room. After obtaining informed consent, the endoscope was passed carefully and meticuously under direct vision and only advanced when the lumen was clearly identified, C02 insuflation was utilized throughout the entirity of the procedure. Throughout the procedure, the patient's blood pressure, pulse, and oxygen saturations were monitored continuously. After obtaining informed consent, the endoscope was passed under direct vision. Throughout the procedure, the patient's blood pressure, pulse, and oxygen saturations were monitored continuously. The Scope was introduced through the mouth, and advanced to the second part of duodenum. The upper GI endoscopy was accomplished without difficulty. The patient tolerated the procedure well. Findings: The examined esophagus was normal. Localized mild inflammation was found in the gastric antrum. Biopsies were taken with a cold forceps for histology. The examined duodenum was normal. Comments I did attempt to maximally insufflate the stomach and look for 1:1 as if a peg would be attempted, and there was not adequate 1:[address] finding of overlying transverse colon making PEG tube unlikely via EGD route. Impression: - Normal esophagus. - Gastritis. Biopsied. - Normal examined duodenum. Recommendation: - Return patient to hospital [facility] for ongoing care. - Use Prilosec (omeprazole) 20 mg PO daily. - Scheduled antiemetics, if will not take PO, then would place dobhoff for a trial of enteral nutrition. Cruz Carlson MD 01/09/2023 1:30:15 PM This report has been signed electronically. Note Initiated On: 01/09/2023 1:15 PM Number of Addenda: 0 I attest to the content of the Intraoperative Record and orders documented therein, exceptions below {[id number]}
[2023-01-09] MEDS ORDERED: HEPARIN 100 UNIT/ML 5ML FLUSH ONE (13:59)
[2023-01-09] MEDS: ONDANSETRON INJ 2 MG/ML 2 ML VIAL IV PRN (15:00)
--- NOTE | 2023-01-09 15:12 | Anesthesiology Progress Note ---
Date of Service January 09, 2023 Anesthesia Post Procedure Vital Signs Vital Signs: Temp Pulse Pulse Pulse Resp BP BP 01/09/23 14:14 118 H 24 131/96 01/09/23 13:45 108 H 24 126/80 01/09/23 13:00 36.4 C L 128 H 20 143/105 H 01/09/23 11:53 36.4 C L 122 H 16 01/09/23 11:43 133 H 141/93 H 01/09/23 08:47 122 H 01/09/23 07:57 36.5 C 132 H 20 01/09/23 04:16 108 H 174/109 H 01/09/23 03:56 126 H 01/09/23 02:40 36.4 C L 116 H 18 01/08/23 23:45 36.7 C 101 H 20 01/08/23 21:56 98 H 01/08/23 19:36 01/08/23 19:03 36.7 C 113 H 18 01/08/23 17:06 107 H 01/08/23 15:44 36.8 C 68 16 BP Pulse Ox O2 Del Method O2 Flow Rate 01/09/23 14:14 100 Oxymask 3 01/09/23 13:45 100 Oxymask 3 01/09/23 13:00 100 Nasal Cannula 5 01/09/23 11:53 141/93 H 97 Nasal Cannula 2 01/09/23 11:43 01/09/23 08:47 01/09/23 07:57 141/90 H 98 Nasal Cannula 2 01/09/23 04:16 01/09/23 03:56 01/09/23 02:40 180/101 H 98 Nasal Cannula 2 01/08/23 23:45 165/100 H 99 Nasal Cannula 2 01/08/23 21:56 01/08/23 19:36 Nasal Cannula 2 01/08/23 19:03 186/100 H 96 Nasal Cannula 2 01/08/23 17:06 01/08/23 15:44 121/66 98 Nasal Cannula 2 Pain Intensity Back: Pain Intensity: 2 Transfer of Care Handoff Completed per policy Notes Mental Status: alert / awake / arousable and participated in evaluation Patient Amnestic to Procedure: Yes Nausea / Vomiting: adequately controlled Pain: adequately controlled Airway Patency, RR, SpO2: stable & adequate BP & HR: stable & adequate Hydration State: stable & adequate Anesthetic Complications: no major complications apparent
[2023-01-09] MEDS ORDERED: [UNRECOGNIZED DRUG - OTHER] IV SCH (16:00)
[2023-01-09] MEDS ORDERED: CLINOLIPID 20% IV FAT EMULSION 250 ML IV SCH (16:00)
[2023-01-09] MEDS ORDERED: CENTRAL TPN IV SCH (16:00)
[2023-01-09] MEDS: CHECK SCOPOLAMINE PATCH PLACEMENT SCH ×2 (16:04→23:22)
--- NOTE | 2023-01-09 16:32 | Hospitalist Progress Note ---
Date of Service January 09, 2023 Assessment & Plan (1) Bacteremia: Plan: Patient recently had MRSA bacteremia and was just 2 days away from completing a 6-week course of daptomycin. However presented to the hospital on 12/30 with worsening fatigue and poor appetite. 12/31 blood cultures 03/02 growing gram- positive's in clusters. Source most likely his lumbar area due to recent lumbar abscess and removal of hardware . He is now 4 days s/p I&D lumbar spine with evidence of recurrent epidural abscess. He still has MATTHEW drains in situ. Intraoperative cultures MRSA as well. Currently on vancomycin and cefepime. Appreciate infectious diseases and Ortho spine consultation and recommendations. He will need continued intravenous antibiotic therapy at discharge. Rifampin has been added to Levaquin and vancomycin per infectious disease recommendations (2) Fatigue: Plan: Due to recurrent infection and toxic encephalopathy. Supportive care. Treat underlying conditions. (3) Prostate cancer metastatic to bone: Plan: Stage IV with bone mets. Treated by Dr. Liriano. Continue Zytiga. Chronic pain treated with acetaminophen and Oxycodone (4) DMII (diabetes mellitus, type 2): Plan: Last A1c was 7.7% on 09/24/2022. ADA diet. Glimepiride on hold. Sliding scale insulin coverage as needed. (5) Atrial fibrillation: Plan: Now on scheduled parenteral metoprolol for rate control. Not on systemic anticoagulation. Telemetry (6) Adrenal insufficiency: Plan: Steroid-dependent. Currently on intravenous hydrocortisone due to poor oral intake. (7) Spinal stenosis: Plan: Hx of lumbar decompression with Dr. Velazco on 11/04/2022. Instrumentation remains in place (8) Urinary tract infection: Plan: Chronic indwelling Aaron. Currently on Levaquin, rifampin and vancomycin (9) Physical deconditioning: Plan: Patient has been essentially bedbound since his lumbar surgery. He is physically deconditioned. Continue OT/PT (10) Anasarca: Plan: Etiology is most likely due to low oncortic pressure. 2 d echo done 01/01 showed EF 60-65%, with moderate to severe tricuspid regurg. Improved with intravenous Lasix (11) Hypotension: Plan: Intravenous fluids as needed. Hold antihypertensives as needed (12) Toxic encephalopathy: Plan: Improved after baclofen discontinued. Supportive care. Narcotic medication for back pain control is also contributing. No CO2 retention seen on ABGs. Plan Dobbhoff feeding tube has been ordered today, January 09. Will discontinue TPN. Eventual return to Center care. Unfortunately, PEG tube could not be placed due to unfavorable position of the transverse colon in relation to the stomach. Admission and Anticipated Discharge Date Admission Date: January 01, 2023 Subjective No significant clinical change. EGD was completed today which revealed evidence of mild gastritis. No Hazel seen in the esophagus or gastric mucosa. Will try Dobbhoff tube feedings at this time. PEG tube could not be placed because the transverse colon is in a position that is not conducive to PEG tube placement. Dietary consultation placed for tube feedings. Will discontinue TPN. Potassium and phosphorus replacement ordered parenterally. He is now on intravenous metoprolol scheduled dosing. Case discussed by phone with infectious disease. Review of Systems 2 Review of Systems: Constitutional-no fever or chills ENT-no blurred vision, no double vision, no epistaxis, no sore throat Respiratory-no cough, no wheezing, no shortness of breath Cardiac-no palpitations, no chest pain, no syncope GI-persistent nausea. Occasional retching. No overt vomiting. No diarrhea, melena, or hematochezia -Aaron catheter in place. Musculoskeletal -nonpitting edema bilateral lower extremities below the knees Skin-scattered ecchymoses both arms Neuro-generalized weakness Psych-flat affect Physical Exam 2 Physical Exam: General-now awake but very weak. No fever HEENT-head atraumatic and normocephalic, pupils equal and reactive to light, extraocular muscles intact Neck-no lymphadenopathy or thyromegaly, trachea midline Chest-scattered rhonchi. No inspiratory rales. No wheezing Cardiac-bradycardia has resolved. Normal S1 and S2 Abdomen-normal bowel sounds, nontender, no hepatosplenomegaly Extremities-1+ peripheral edema both lower extremity below the knees GUFoley catheter in place. Urine is now orange color due to rifampin Neuro-no apparent focal deficits. Generalized weakness. Psych-flat affect Results & Data Results & Data Vital Signs (Past 12 Hours) Vital Signs Temp Pulse Pulse Pulse Resp BP BP 01/09/23 16:12 36.5 C 120 H 16 115/87 01/09/23 14:14 118 H 24 131/96 01/09/23 13:45 108 H 24 126/80 01/09/23 13:00 36.4 C L 128 H 20 143/105 H 01/09/23 11:53 36.4 C L 122 H 16 01/09/23 11:43 133 H 141/93 H 01/09/23 08:47 122 H 01/09/23 07:57 36.5 C 132 H 20 BP Pulse Ox O2 Del Method O2 Flow Rate 01/09/23 16:12 100 Nasal Cannula 5 01/09/23 14:14 100 Oxymask 3 01/09/23 13:45 100 Oxymask 3 01/09/23 13:00 100 Nasal Cannula 5 01/09/23 11:53 141/93 H 97 Nasal Cannula 2 01/09/23 11:43 01/09/23 08:47 01/09/23 07:57 141/90 H 98 Nasal Cannula 2 Laboratory Results 01/09/23 05:39 01/09/23 05:39 PG Care Time/CCT Total # of Minutes Spent Total Time Spent with Patient: Total time spent is greater than 50% in coordination of care (as documented) at patient's floor/unit and/or counseling patient: Coding Level of Care Code 42242 SUB INP/OBS CARE 3/50MIN Diagnoses Bacteremia R78.81 Fatigue R53.83 Prostate cancer metastatic to bone C61; C79.51 DMII (diabetes mellitus, type 2) E11.9 Atrial fibrillation I48.91 Adrenal insufficiency E27.40 Spinal stenosis M48.00 Spinal region: unspecified Urinary tract infection N39.0 Physical deconditioning R53.81 Anasarca R60.1 Hypotension I95.9 Toxic encephalopathy G92.9 (7) Spinal stenosis Spinal region: unspecified Qualified Code(s): M48.00 - Spinal stenosis, site unspecified
[2023-01-09] MEDS ORDERED: KETOROLAC TROMETHAMINE 15 MG/ML VIAL IV PRN (18:45)
[2023-01-09] MEDS: levoFLOXacin/D5W 750 MG/150 ML BAG IV SCH (21:41)
[2023-01-10] MEDS: METOPROLOL TARTRATE 1 MG/ML VIAL IV SCH ×2 (00:12→06:27)
[2023-01-10] MEDS: VANCOMYCIN HCL 750 MG in SODIUM CHLORIDE 0.9% 250 ML IV SCH (06:33)
--- NOTE | 2023-01-10 07:18 | XRay Report ---
KUB CLINICAL HISTORY: Enteric tube placement. FINDINGS: 2 AP, portable, supine views of the lower chest and upper abdomen are correlated with abdom inal CT dated 12/30/2022. A right PICC line is in place. An enteric tube has been placed. The tip pro jects below the diaphragm over the proximal stomach. There are distended and gas-filled loops of janet l seen below the diaphragm. Midline skin clips are noted and a surgical drain is in place. No evidenc e of intraperitoneal free air is seen on these supine images. No abnormal abdominal calcifications ar e identified. Atelectasis is seen at both lung bases. The heart is enlarged noting atherosclerotic ca lcification of the thoracic aorta. The skeletal structures are osteopenic and appear intact. Fusion h ardware is partially visualized in the lumbar spine. IMPRESSION: 1. An enteric tube has been placed as above. 2. Postsurgical change is noted in the abdomen. 3. There are distended and gas-filled loops of bowel below the diaphragm, likely representing ileus. Clinical correlation will be essential as developing obstruction could appear similar. Electronically signed by: Jesus Alberto Briones M.D. 01/10/2023 7:16 AM
[2023-01-10] MEDS: PROSOURCE NO CARB 30 ML/PKT GT SCH (08:10)
--- NOTE | 2023-01-10 08:37 | Pharmacy Report ---
Pharmacy PK ABX Note - Date of Service January 10, 2023 - Assessment and Plan Assessment 01/10/23 * Random level this AM was 19.1 after 750 mg given yesterday. * Will continue current regimen. 01/08: * SCr elevated again today at 1.12 mg/dL * Last dose of vancomycin was evening of 01/06/23, no dose yesterday * Cefepime changed to levofloxacin 750 mg IV q24h, Rifampin initiated yesterday (01/07) * Remains on TPN 01/06: * Slight bump in SCr noted this morning (0.83 mg/dL vs. 0.59 mg/dL). No updated cultures. Patient remains afebrile w/ no overt leukocytosis. 01/04: Measured trough 23.5 mcg/mL is higher than predicted 20.4 mcg/ml, intermediate model fit. Given high trough, will reduce dose today. Vertebrae culture form 01/01 now with staph species. 01/03: 12/30 Blood cultures / MRSA. Urine culture (indwelling walton) 12/30 Hazel glabrata complex, Hazel albicans/dubliniensis. 12/31 Blood cultures Negative at 48 hours, Vertebrae cultures: no growth, fungal pending. 01/01 blood cultures negative at 24 hours. No visualized vegetation on TTE. Afebrile, normal WBC. ID following. Random level this AM 25.1 does predict therapeutic AUC/AZAEL, however is an intermediate fit. Will obtain timed trough level to further assess dosing. 12/31 77 year old M receiving vancomycin and cefepime for bacteremia. Blood cultures (+) [facility] in 2/, biofire (+) MRSA. Patient with recent admission for MRSA bacteremia and spinal abscess and was discharged on daptomycin through 01/01. ID consulted. Day #9 of antimicrobial therapy. Plan Vancomycin * Current regimen: 750 mg IV every 24 hours * Renal function ordered for tomorrow and level ordered for 01/12 Pharmacy will continue to follow and will adjust dose/frequency as necessary. Thank you. Pharmacy has transitioned to AUC monitoring for vancomycin. AUC/ZAAEL is the preferred PK/PD target and is associated with decreased risk of nephrotoxicity compared to traditional trough targets.
[2023-01-10] MEDS: INSULIN ASPART PER UNIT CHARGE SQ SCH ×4 (09:08→21:18)
[2023-01-10] MEDS: CYANOCOBALAMIN (B-12) 500 MCG TABLET PO SCH (09:14)
[2023-01-10] MEDS: TUBE FEEDING WATER FLUSH GT SCH ×3 (09:14→21:18)
[2023-01-10] MEDS: CALCIUM 600MG + VIT D 400 IU TAB PO SCH (09:14)
[2023-01-10] MEDS: ATORVASTATIN 20 MG TAB PO SCH (09:14)
[2023-01-10] MEDS: CHECK SCOPOLAMINE PATCH PLACEMENT SCH ×2 (09:15→14:33)
[2023-01-10] MEDS: HEPARIN SOD 5,000 UNIT/0.5 ML VIAL SQ SCH ×2 (09:16→21:02)
[2023-01-10] MEDS: HYDROCORTISONE SOD 25 MG in SYRINGE 0 ML IV SCH ×3 (09:17→21:00)
[2023-01-10] MEDS: dilTIAZem HCl 60 MG TAB PO SCH ×3 (09:21→21:01)
[2023-01-10] MEDS: POLYETHYLENE (MIRALAX) 17 GM PACK PO SCH (10:52)
[2023-01-10] MEDS: LANSOPRAZOLE 30 MG SOLTAB NG SCH (11:02)
[2023-01-10] MEDS: LACTOBACILLUS ACIDOPHILUS 1 GM PACK PO SCH (11:03)
[2023-01-10] MEDS: MENTHOL-ZINC OXIDE 360 APPLN/120 GM TUBE EXT SCH ×2 (11:04→17:50)
[2023-01-10] MEDS: rifAMPin 300 MG in DEXTROSE 5% 500 ML IV SCH ×2 (11:08→23:11)
[2023-01-10] MEDS: dilTIAZem HCL 180 MG CAPCR PO SCH (12:10)
[2023-01-10] MEDS: PANTOprazole 40 MG TAB PO SCH (12:10)
[2023-01-10] MEDS: ADVANCED PROBIOTIC 1250 MG CAPSULE PO SCH (12:10)
[2023-01-10] MEDS: ABIRATERONE ACETATE PO SCH (12:11)
[2023-01-10 12:18] LABS: Calcium 8.3 mg/dl (8.6-10.3)
[2023-01-10 12:24] LABS: Creatinine Clr Calc Pharmacy 60.5 ml/min; Est GFR (African American) 68.1 ml/min; Est GFR (Non-African American) 58.8 ml/min
[2023-01-10] MEDS: ONDANSETRON INJ 2 MG/ML 2 ML VIAL IV PRN (13:38)
[2023-01-10] MEDS: POTASSIUM CHLORIDE 20 MEQ/15 ML UDC NG SCH ×2 (14:32→21:00)
[2023-01-10] MEDS ORDERED: METOPROLOL TARTRATE 1 MG/ML VIAL IV PRN (14:38)
--- NOTE | 2023-01-10 15:25 | Hospitalist Progress Note ---
Date of Service January 10, 2023 Assessment & Plan (1) Bacteremia: Plan: Patient recently had MRSA bacteremia and was just 2 days away from completing a 6-week course of daptomycin. However presented to the hospital on 12/30 with worsening fatigue and poor appetite. 12/31 blood cultures 03/02 growing gram- positive's in clusters. Source most likely his lumbar area due to recent lumbar abscess and removal of hardware . He is now 4 days s/p I&D lumbar spine with evidence of recurrent epidural abscess. He still has MATTHEW drains in situ. Intraoperative cultures MRSA as well. Currently on vancomycin and cefepime. Appreciate infectious diseases and Ortho spine consultation and recommendations. He will need continued intravenous antibiotic therapy at discharge. Rifampin has been added to Levaquin and vancomycin per infectious disease recommendations (2) Fatigue: Plan: Due to recurrent infection and toxic encephalopathy. Supportive care. Treat underlying conditions. (3) Prostate cancer metastatic to bone: Plan: Stage IV with bone mets. Treated by Dr. Liriano. Continue Zytiga. Chronic pain treated with acetaminophen and Oxycodone (4) DMII (diabetes mellitus, type 2): Plan: Last A1c was 7.7% on 09/24/2022. ADA diet. Glimepiride on hold. Sliding scale insulin coverage as needed. (5) Atrial fibrillation: Plan: Parenteral metoprolol has been switched to oral route via Dobbhoff. Will use as needed IV metoprolol as needed. Telemetry. Not on systemic anticoagulation. (6) Adrenal insufficiency: Plan: Steroid-dependent. Currently on intravenous hydrocortisone due to poor oral intake. Will switch to prednisone per feeding tube eventually (7) Spinal stenosis: Plan: Hx of lumbar decompression with Dr. Velazco on 11/04/2022. Instrumentation remains in place (8) Urinary tract infection: Plan: Chronic indwelling Aaron. Currently on Levaquin, rifampin and vancomycin (9) Physical deconditioning: Plan: Patient has been essentially bedbound since his lumbar surgery. He is physically deconditioned. Continue OT/PT (10) Anasarca: Plan: Etiology is most likely due to low oncortic pressure. 2 d echo done 01/01 showed EF 60-65%, with moderate to severe tricuspid regurg. Improved with intravenous Lasix (11) Hypotension: Plan: Intravenous fluids as needed. Hold antihypertensives as needed (12) Toxic encephalopathy: Plan: Improved after baclofen discontinued. Supportive care. Narcotic medication for back pain control is also contributing. No CO2 retention seen on ABGs. Plan Dobbhoff feeding tube is now in place as of January 09. TPN has been discontinued. Eventual return to Center care. Unfortunately, PEG tube could not be placed due to unfavorable position of the transverse colon in relation to the stomach. Admission and Anticipated Discharge Date Admission Date: January 01, 2023 Subjective Alert and oriented. He is able to speak clearly now. He continues to improve. Dobbhoff feeding tube is present in the nose and tube feedings so far are well- tolerated. Oncology consultation requested to manage oncology medications through the Dobbhoff. Potassium elixir ordered through Dobbhoff tube. Potassium remains low. Hypophosphatemia has been corrected. Parenteral metoprolol has been switched to dosing per NG tube. TPN has been discontinued. Review of Systems 2 Review of Systems: Constitutional-no fever or chills ENT-no blurred vision, no double vision, no epistaxis, no sore throat Respiratory-no cough, no wheezing, no shortness of breath Cardiac-no palpitations, no chest pain, no syncope GI-persistent nausea. Occasional retching. No overt vomiting. No diarrhea, melena, or hematochezia -Aaron catheter in place. Musculoskeletal -nonpitting edema bilateral lower extremities below the knees Skin-scattered ecchymoses both arms Neuro-generalized weakness Psych-flat affect Physical Exam 2 Physical Exam: General-now awake and oriented. He is able to converse. He remains very weak. No fever HEENT-head atraumatic and normocephalic, pupils equal and reactive to light, extraocular muscles intact Neck-no lymphadenopathy or thyromegaly, trachea midline Chest-scattered rhonchi. No inspiratory rales. No wheezing Cardiac-bradycardia has resolved. Normal S1 and S2 Abdomen-normal bowel sounds, nontender, no hepatosplenomegaly Extremities-1+ peripheral edema both lower extremity below the knees GUFoley catheter in place. Urine is now orange color due to rifampin Neuro-no apparent focal deficits. Generalized weakness. Psych-flat affect Results & Data Results & Data Vital Signs (Past 12 Hours) Vital Signs Temp Pulse Pulse Resp BP BP BP 01/10/23 15:10 36.7 C 129 H 20 139/78 01/10/23 08:04 112 H 124/91 01/10/23 07:53 37.0 C 112 H 16 124/91 01/10/23 07:29 122 H 01/10/23 06:27 137 H 122/82 01/10/23 03:32 36.6 C 135 H 18 119/81 Pulse Ox O2 Del Method O2 Flow Rate 01/10/23 15:10 96 Nasal Cannula 2 01/10/23 08:04 01/10/23 07:53 100 Nasal Cannula 2 01/10/23 07:29 01/10/23 06:27 01/10/23 03:32 99 Nasal Cannula 2 Laboratory Results 01/09/23 05:39 01/10/23 05:04 PG Care Time/CCT Total # of Minutes Spent Total Time Spent with Patient: Total time spent is greater than 50% in coordination of care (as documented) at patient's floor/unit and/or counseling patient: Coding Level of Care Code 13935 SUB INP/OBS CARE 3/50MIN Diagnoses Bacteremia R78.81 Fatigue R53.83 Prostate cancer metastatic to bone C61; C79.51 DMII (diabetes mellitus, type 2) E11.9 Atrial fibrillation I48.91 Adrenal insufficiency E27.40 Spinal stenosis M48.00 Spinal region: unspecified Urinary tract infection N39.0 Physical deconditioning R53.81 Anasarca R60.1 Hypotension I95.9 Toxic encephalopathy G92.9 (7) Spinal stenosis Spinal region: unspecified Qualified Code(s): M48.00 - Spinal stenosis, site unspecified
[2023-01-10] MEDS: levoFLOXacin/D5W 750 MG/150 ML BAG IV SCH (18:46)
[2023-01-10] MEDS: METOPROLOL TARTRATE 50 MG TAB NG SCH (21:01)
[2023-01-10] MEDS: STOP CLINOLIPID SCH (21:03)
[2023-01-10] MEDS: FIBERSOURCE HN 1.2 CAL 1000 ML BAG GT SCH (22:47)
[2023-01-11] MEDS: CHECK SCOPOLAMINE PATCH PLACEMENT SCH ×3 (00:53→16:27)
[2023-01-11] MEDS: MENTHOL-ZINC OXIDE 360 APPLN/120 GM TUBE EXT SCH ×3 (00:54→16:28)
[2023-01-11] MEDS: TUBE FEEDING WATER FLUSH GT SCH ×4 (02:31→19:17)
[2023-01-11 05:42] LABS: Hematocrit (blood only) 31.8 % (42.0-52.0); Hemoglobin 10.4 g/dl (14.0-18.0); Mean Corpuscular Hemoglobin 30.2 pg (25.0-34.0); Mean Corpuscular Hgb Conc 32.7 g/dL (32.0-36.0); Mean Corpuscular Volume 92.4 fL (80.0-100.0); Mean Platelet Volume 10.8 fL (9.4-12.4); Platelet Count 147 K/uL (130-400); RDW Coefficient of Variation 16.3 % (11.5-14.5); RDW Standard Deviation 54.9 fL (36.4-46.3); Red Blood Count 3.44 M/uL (4.70-6.10)
[2023-01-11 06:03] LABS: BUN Creatinine Ratio 31.3 (10-20); Calcium 8.5 mg/dl (8.6-10.3); Creatinine Clr Calc Pharmacy 63.7 ml/min; Est GFR (African American) 72.5 ml/min; Est GFR (Non-African American) 62.6 ml/min; Potassium 3.2 mmol/L (3.5-5.1)
[2023-01-11] MEDS: VANCOMYCIN HCL 750 MG in SODIUM CHLORIDE 0.9% 250 ML IV SCH (06:08)
[2023-01-11 06:44] LABS: Basophils # (auto) 0.06 K/uL (0.00-0.20); Basophils % (auto) 0.7 %; Eosinophils # (auto) 0.12 K/uL (0.00-0.50); Eosinophils % (auto) 1.4 %; Immature Granulocytes # (auto) 0.66 K/uL (0.01-0.20); Lymphocytes % (auto) 16.9 %; Monocytes # (auto) 0.91 K/uL (0.11-0.59); Neutrophils # (auto) 5.15 K/uL (1.40-6.50)
[2023-01-11] MEDS: HYDROCORTISONE SOD 25 MG in SYRINGE 0 ML IV SCH (08:30)
[2023-01-11] MEDS: ATORVASTATIN 20 MG TAB PO SCH (08:31)
[2023-01-11] MEDS: HEPARIN SOD 5,000 UNIT/0.5 ML VIAL SQ SCH ×2 (08:31→20:25)
[2023-01-11] MEDS: CYANOCOBALAMIN (B-12) 500 MCG TABLET PO SCH (08:31)
[2023-01-11] MEDS: CALCIUM 600MG + VIT D 400 IU TAB PO SCH (08:32)
[2023-01-11] MEDS: dilTIAZem HCl 60 MG TAB PO SCH ×3 (08:33→20:24)
[2023-01-11] MEDS: LACTOBACILLUS ACIDOPHILUS 1 GM PACK PO SCH (08:33)
[2023-01-11] MEDS: METOPROLOL TARTRATE 50 MG TAB NG SCH ×2 (08:34→20:25)
[2023-01-11] MEDS: LANSOPRAZOLE 30 MG SOLTAB NG SCH (08:34)
[2023-01-11] MEDS: POTASSIUM CHLORIDE 20 MEQ/15 ML UDC NG SCH ×2 (08:34→20:26)
[2023-01-11] MEDS: PROSOURCE NO CARB 30 ML/PKT GT SCH (08:35)
[2023-01-11] MEDS: POLYETHYLENE (MIRALAX) 17 GM PACK PO SCH (08:35)
[2023-01-11] MEDS: INSULIN ASPART PER UNIT CHARGE SQ SCH ×4 (09:14→21:12)
--- NOTE | 2023-01-11 09:31 | Oncology Consultation ---
Date of Consultation January 11, 2023 Assessment & Plan (1) MRSA bacteremia: (2) Prostate cancer metastatic to bone: Plan Appears to be doing better. Would not recommend crushing Zytiga at this time or administering via Dobbhoff feeding tube. Would recommend holding off on restarting Zytiga for now until he is able to tolerate more by mouth and clinical condition is overall stable Patient and his spouse agreed with the above plan. Thank you for this consult. Oncology will sign off and plan to see him upon discharge from hospital. Please feel free to call if you have any further questions History of Present Illness Reason for Consultation: met prostate cancer. Meds via NG ??? Attending Physician: Luiz Parish MD History of Present Illness Pleasant 77-year-old gentleman known to me at [facility] with history of metastatic prostate cancer for which he is currently on Lupron, Zytiga and Xgeva. He has had multiple hospitalizations over the past couple of months with COVID-19 infection, lumbar spine surgery complicated by MRSA bacteremia. Recently readmitted with fatigue, declining performance status, MRSA bacteremia and protein energy malnutrition. Currently receiving feeds via Dobbhoff feeding tube. Oncology was consulted regarding continuation of Zytiga while receiving feeds via feeding tube. Complains of fatigue, generalized bodyaches and easy bruising. States that he feels a little bit stronger and is tolerating more feeds by mouth Allergies Allergy/AdvReac Type Severity Reaction Status Date / Time cat dander Allergy Severe CAN CAUSE Verified 12/30/22 20:35 ASTHMA ATTACK-itchy eyes, congestion gabapentin AdvReac Intermediate Hallucinati Verified 12/30/22 20:35 ng tramadol AdvReac Intermediate Hallucinati Verified 12/30/22 20:35 ng Home Medications Medication Instructions Recorded Confirmed Type Daptomcin Iv Solution 800 mg IV DAILY 12/30/22 12/30/22 History Heparin Sod Lock Flush 5 ml IV QS 12/30/22 12/30/22 History L.acidop,casei,lactis,rham-B.lact,donn 2 cap PO QAM 12/30/22 12/30/22 History 625 mg (10 billion cell) capsule (Advanced Probiotic) abiraterone 500 mg tablet 1,000 mg PO QAM 12/30/22 12/30/22 History acetaminophen 325 mg tablet 650 mg PO Q6 PRN Fever Or Pain 12/30/22 12/30/22 History (Tylenol) aluminum-mag hydroxide-simethicone 30 ml PO .Q6 PRN .GI UPSET 12/30/22 12/30/22 History 400 mg-400 mg-40 mg/5 mL oral susp (Mylanta Maximum Strength) atorvastatin 20 mg tablet 20 mg PO .HOLD UNTIL 01/02/23 12/30/22 12/30/22 History baclofen 10 mg tablet 10 mg PO TID 12/30/22 12/30/22 History calcium carbonate 500 mg-vitamin 1 tab PO DAILY 12/30/22 12/30/22 History D3 5 mcg (200 unit) tablet (Calcium 500 + D) cyanocobalamin (vitamin B-12) 1,000 mcg PO QAM 12/30/22 12/30/22 History 1,000 mcg tablet (Vitamin B-12) diltiazem HCl 180 mg 180 mg PO QAM 12/30/22 12/30/22 History tablet,extended release 24 hr doxycycline hyclate 100 mg tablet 100 mg PO .Q12HRS UD 12/30/22 12/30/22 History glimepiride 2 mg tablet 2 mg PO QAM 12/30/22 12/30/22 History insulin lispro 100 unit/mL 0 sliding scale dose subcut ACHS 12/30/22 12/30/22 History subcutaneous cartridge (Humalog U-100 Insulin) ipratropium 0.5 mg-albuterol 3 mg 3 ml inhalation .Q2HR PRN 12/30/22 12/30/22 History (2.5 mg base)/3 mL nebulization Shortness Of Breath Or Wheezing soln ipratropium 0.5 mg-albuterol 3 mg 3 ml inhalation .QID FOR 2WEEKS 12/30/22 12/30/22 History (2.5 mg base)/3 mL nebulization soln levofloxacin 750 mg tablet 750 mg PO .DAILY UD 12/30/22 12/30/22 History loratadine 10 mg capsule 10 mg PO DAILY 12/30/22 12/30/22 History menthol 0.44 %-zinc oxide 20.6 % 1 applic topical QS 12/30/22 12/30/22 History topical ointment (Calmoseptine) metoprolol succinate 200 mg 200 mg PO QAM 12/30/22 12/30/22 History tablet,extended release 24 hr multivitamin 1 tab PO DAILY 12/30/22 12/30/22 History naloxone 0.4 mg/mL injection 0.4 mg IV DIRECTED PRN ams 12/30/22 12/30/22 History solution nitroglycerin 0.4 mg sublingual 0.4 mg sublingual DIRECTED PRN 12/30/22 12/30/22 History tablet (Nitrostat) Chest Pain omeprazole 20 mg tablet,delayed 20 mg PO DAILY 12/30/22 12/30/22 History release ondansetron HCl 4 mg tablet 4 mg PO Q6H PRN Nausea 12/30/22 12/30/22 History polyethylene glycol 3350 17 gram 17 g PO QAM 12/30/22 12/30/22 History oral powder packet (Miralax) prednisone 5 mg tablet 5 mg PO BID 12/30/22 12/30/22 History saliva substitute combo no.9 2 ea PO .Q2HRS PRN .DRY MOUTH 12/30/22 12/30/22 History (Biotene Dry Mouth Oral Rinse mouthwash) sertraline 100 mg tablet 100 mg PO DAILY 12/30/22 12/30/22 History sodium chloride 0.9 % (flush) 10 ml IV QS 12/30/22 12/30/22 History triamcinolone acetonide 0.1 % 1 applic topical DIRECTED 12/30/22 12/31/22 History topical ointment Patient History Medical History Adrenal insufficiency Spinal stenosis Prostate cancer metastatic to bone Atrial fibrillation DX 2018 - FOLLOWS W/ DR. GRANADOS DMII (diabetes mellitus, type 2) IPMN (intraductal papillary mucinous neoplasm) Acute urinary retention Morbid obesity Neurogenic claudication due to lumbar spinal stenosis Balanitis Thrombocytopenia COVID-19 Lumbar spondylosis Ambulatory dysfunction COVID-19 09/2022 requiring hospitalization Fatigue Urinary tract infection Urinary frequency Sacral lesion Prostate nodule Kidney stones Hypercholesterolemia Hydronephrosis of right kidney Androgen-induced osteoporosis Insomnia Resolved Chronic steroid use PROSTATE CANCER Osteoarthritis Ureter injury OBSTRUCTION OF RT URETER 2/2 PROSTATE CA Hyperlipidemia Urinary incontinence Urge incontinence Spinal stenosis Depression Renal insufficiency Urinary retention Resolved Anxiety Psychosis Had hx of depression with psychotic episode - resolved IBS (irritable bowel syndrome) HTN (hypertension) Surgical History History of cataract surgery 2019 - Bilat History of tooth extraction in age 19's History of tonsillectomy as a child History of colonoscopy 2011 (due in 2021) History of prostate biopsy 2014 S/P TURP 2014 Family History Mother , Passed age 60 of sepsis Gallbladder disease Mental disorder Psychological disorder Father , Passed age 89 of sepsis (infected bladder stones) Congestive heart failure Bladder stones Prostate cancer no treatment needed Brother Heart failure Kidney stones Kidney disease Bladder cancer, Onset Age: 75 Myocardial infarction Grandmother (Paternal) , Passed age 93 of old age Breast cancer, Onset Age: 40 double mastectomy and then did well Sister , Passed age 2 of pneumonia No problems noted. Other Has no children Denies family history of Colon cancer Ovarian cancer Social History Smoking Status: Former smoker Tobacco Type: Cigarettes Age Started Using Tobacco: 20; Age Quit Using Tobacco: 39; packs per day: 0.5; Second Hand Exposure: No; Do You Dip or Chew Tobacco: No; Hx Alcohol Use: Yes Alcohol Intake Frequency: Monthly or Less Hx Substance Use: No Preferred Language: [place] Communication Ability: Effective Communication Tools: Other Visual Impairment: Limited Hearing Ability: Normal Hogshead Roller Required: No Beliefs That Will Affect Care: None marital status: Current Living Situation: Spouse Current Living Situation Comment: LIVES W/ OLIVER - current occupational status: retired 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 Other Information That Helps Us Care for You: No Feels Safe at Home: Yes Safety Concerns: Feels Safe At This Time Childhood Exposure to Second-Hand Smoke: No Diet: diabetic caffeine: Yes (1 cup of coffee/day ) during the past year weight has: remained stable Dental Care, Regularly: No Physical Activity Frequency: Does not Exercise Seatbelt Use: always Sunscreen Use: Yes Assistive Devices: Glasses and Oxygen - Continuous Results & Data Vital Signs (Past 12 Hours) Vital Signs Temp Pulse Pulse Resp BP BP Pulse Ox 01/11/23 07:43 01/11/23 07:32 36.8 C 110 H 20 118/89 98 01/11/23 07:26 101 H 01/11/23 04:04 36.7 C 108 H 18 114/81 95 01/10/23 22:49 36.6 C 121 H 18 130/85 97 O2 Del Method O2 Flow Rate 01/11/23 07:43 Nasal Cannula 2 01/11/23 07:32 Nasal Cannula 2 01/11/23 07:26 01/11/23 04:04 Nasal Cannula 2 01/10/23 22:49 Nasal Cannula 2
[2023-01-11] MEDS: rifAMPin 300 MG in DEXTROSE 5% 500 ML IV SCH ×2 (10:50→22:32)
[2023-01-11] MEDS: ABIRATERONE ACETATE PO SCH (10:51)
--- NOTE | 2023-01-11 14:23 | Hospitalist Progress Note ---
Date of Service January 11, 2023 Assessment & Plan (1) Bacteremia: Plan: Patient recently had MRSA bacteremia and was just 2 days away from completing a 6-week course of daptomycin. However presented to the hospital on 12/30 with worsening fatigue and poor appetite. 12/31 blood cultures 03/02 growing gram- positive's in clusters. Source most likely his lumbar area due to recent lumbar abscess and removal of hardware . He is now 4 days s/p I&D lumbar spine with evidence of recurrent epidural abscess. He still has MATTHEW drains in situ. Intraoperative cultures MRSA as well. Currently on vancomycin, Levaquin, rifampin. Appreciate infectious diseases and Ortho spine consultation and recommendations. He will need continued intravenous antibiotic therapy at discharge. (2) Fatigue: Plan: Due to recurrent infection and toxic encephalopathy. Supportive care. Treat underlying conditions. Continue OT and PT (3) Prostate cancer metastatic to bone: Plan: Stage IV with bone mets. Treated by Dr. Liriano. Zytiga is temporarily on hold because it cannot be given through the Dobbhoff tube. Chronic pain treated with acetaminophen and Oxycodone (4) DMII (diabetes mellitus, type 2): Plan: Last A1c was 7.7% on 09/24/2022. ADA diet. Glimepiride on hold. Sliding scale insulin coverage as needed. (5) Atrial fibrillation: Plan: Parenteral metoprolol has been switched to oral route via Dobbhoff. Will use as needed IV metoprolol as needed. Telemetry. Not on systemic anticoagulation. (6) Adrenal insufficiency: Plan: Steroid-dependent. Intravenous hydrocortisone switched to prednisone via NG route today, January 11 (7) Spinal stenosis: Plan: Hx of lumbar decompression with Dr. Velazco on 11/04/2022. Instrumentation remains in place (8) Urinary tract infection: Plan: Chronic indwelling Aaron. Currently on Levaquin, rifampin and vancomycin (9) Physical deconditioning: Plan: Patient has been essentially bedbound since his lumbar surgery. He is physically deconditioned. Continue OT/PT (10) Anasarca: Plan: Etiology is most likely due to low oncortic pressure. 2 d echo done 01/01 showed EF 60-65%, with moderate to severe tricuspid regurg. Improved with intravenous Lasix (11) Hypotension: Plan: Intravenous fluids as needed. Hold antihypertensives as needed (12) Toxic encephalopathy: Plan: Resolved after baclofen discontinued. Supportive care. Narcotic medication for back pain control is also contributing. No CO2 retention seen on ABGs. Plan Dobbhoff feeding tube is now in place as of January 09. TPN has been discontinued. Eventual return to Center care. Unfortunately, PEG tube could not be placed due to unfavorable position of the transverse colon in relation to the stomach. Will remove Dobbhoff feeding tube when oral intake improves Admission and Anticipated Discharge Date Admission Date: January 01, 2023 Subjective He is now completely alert. He is having some hospital delirium however but oftentimes he is completely lucid. Significant other is at the bedside. He is tolerating his Dobbhoff tube feedings. He was encouraged to also take oral intake and proved to us that he can do so so the NG tube can be removed. Parenteral corticosteroid switched to oral prednisone. Potassium is now increasing, up to 3.2. This will eventually normalize. He remains on IV Levaquin, vancomycin, rifampin. Review of Systems 2 Review of Systems: Constitutional-no fever or chills ENT-no blurred vision, no double vision, no epistaxis, no sore throat Respiratory-no cough, no wheezing, no shortness of breath Cardiac-no palpitations, no chest pain, no syncope GI-persistent nausea. Occasional retching. No overt vomiting. No diarrhea, melena, or hematochezia -Aaron catheter in place. Musculoskeletal -nonpitting edema bilateral lower extremities below the knees Skin-scattered ecchymoses both arms Neuro-generalized weakness Psych-flat affect Physical Exam 2 Physical Exam: General-now awake and oriented. He is able to converse. He remains very weak. No fever HEENT-head atraumatic and normocephalic, pupils equal and reactive to light, extraocular muscles intact. Nasogastric Dobbhoff feeding tube in place Neck-no lymphadenopathy or thyromegaly, trachea midline Chest-scattered rhonchi. No inspiratory rales. No wheezing Cardiac-bradycardia has resolved. Normal S1 and S2 Abdomen-normal bowel sounds, nontender, no hepatosplenomegaly Extremities-1+ peripheral edema both lower extremity below the knees GUFoley catheter in place. Urine is now orange color due to rifampin Neuro-no apparent focal deficits. Generalized weakness. Psych-flat affect Results & Data Results & Data Vital Signs (Past 12 Hours) Vital Signs Temp Pulse Pulse Resp BP BP Pulse Ox 01/11/23 11:26 36.5 C 102 H 20 112/80 94 01/11/23 07:43 01/11/23 07:32 36.8 C 110 H 20 118/89 98 01/11/23 07:26 101 H 01/11/23 04:04 36.7 C 108 H 18 114/81 95 O2 Del Method O2 Flow Rate 01/11/23 11:26 Nasal Cannula 2 01/11/23 07:43 Nasal Cannula 2 01/11/23 07:32 Nasal Cannula 2 01/11/23 07:26 01/11/23 04:04 Nasal Cannula 2 Laboratory Results 01/11/23 05:18 01/11/23 05:18 PG Care Time/CCT Total # of Minutes Spent Total Time Spent with Patient: Total time spent is greater than 50% in coordination of care (as documented) at patient's floor/unit and/or counseling patient: Coding Level of Care Code 98845 SUB INP/OBS CARE 3/50MIN Diagnoses Bacteremia R78.81 Fatigue R53.83 Prostate cancer metastatic to bone C61; C79.51 DMII (diabetes mellitus, type 2) E11.9 Atrial fibrillation I48.91 Adrenal insufficiency E27.40 Spinal stenosis M48.00 Spinal region: unspecified Urinary tract infection N39.0 Physical deconditioning R53.81 Anasarca R60.1 Hypotension I95.9 Toxic encephalopathy G92.9 (7) Spinal stenosis Spinal region: unspecified Qualified Code(s): M48.00 - Spinal stenosis, site unspecified
[2023-01-11] MEDS ORDERED: LORazepam 0.5 MG TAB PO PRN (18:06)
[2023-01-11] MEDS: levoFLOXacin/D5W 750 MG/150 ML BAG IV SCH (19:14)
[2023-01-11] MEDS: predniSONE 5 MG TAB NG SCH (20:26)
[2023-01-12] MEDS: MENTHOL-ZINC OXIDE 360 APPLN/120 GM TUBE EXT SCH ×3 (01:22→16:55)
[2023-01-12] MEDS: CHECK SCOPOLAMINE PATCH PLACEMENT SCH ×3 (01:22→16:55)
[2023-01-12] MEDS: TUBE FEEDING WATER FLUSH GT SCH ×4 (02:20→19:36)
[2023-01-12] MEDS ORDERED: VANCOMYCIN LEVEL ONE (06:00)
[2023-01-12 06:11] LABS: Hematocrit (blood only) 32.8 % (42.0-52.0); Hemoglobin 10.6 g/dl (14.0-18.0); Mean Corpuscular Hgb Conc 32.3 g/dL (32.0-36.0); Mean Corpuscular Volume 92.9 fL (80.0-100.0); Platelet Count 158 K/uL (130-400); RDW Standard Deviation 54.6 fL (36.4-46.3); Red Blood Count 3.53 M/uL (4.70-6.10); White Blood Count 8.59 K/ul (4.8-10.8)
[2023-01-12] MEDS: VANCOMYCIN HCL 750 MG in SODIUM CHLORIDE 0.9% 250 ML IV SCH (06:29)
[2023-01-12 06:31] LABS: BUN Creatinine Ratio 28.2 (10-20); Calcium 8.5 mg/dl (8.6-10.3); Creatinine Clr Calc Pharmacy 61.4 ml/min; Est GFR (African American) 68.8 ml/min; Est GFR (Non-African American) 59.4 ml/min; Potassium 3.3 mmol/L (3.5-5.1)
[2023-01-12 07:01] LABS: Basophils # (auto) 0.08 K/uL (0.00-0.20); Basophils % (auto) 0.9 %; Eosinophils # (auto) 0.15 K/uL (0.00-0.50); Eosinophils % (auto) 1.7 %; Immature Granulocytes # (auto) 0.67 K/uL (0.01-0.20); Immature Granulocytes % (auto) 7.8 %; Monocytes # (auto) 1.07 K/uL (0.11-0.59); Monocytes % (auto) 12.5 %; Neutrophils # (auto) 5.42 K/uL (1.40-6.50); Neutrophils % (auto) 63.1 %; RBC Morphology Unremarkable
[2023-01-12] MEDS: CALCIUM 600MG + VIT D 400 IU TAB PO SCH (07:14)
[2023-01-12] MEDS: dilTIAZem HCl 60 MG TAB PO SCH ×3 (07:14→20:32)
[2023-01-12] MEDS: CYANOCOBALAMIN (B-12) 500 MCG TABLET PO SCH (07:15)
[2023-01-12] MEDS: ATORVASTATIN 20 MG TAB PO SCH (07:15)
[2023-01-12] MEDS: PROSOURCE NO CARB 30 ML/PKT GT SCH (07:16)
[2023-01-12] MEDS: HEPARIN SOD 5,000 UNIT/0.5 ML VIAL SQ SCH ×2 (07:16→20:33)
[2023-01-12] MEDS: LANSOPRAZOLE 30 MG SOLTAB NG SCH (07:17)
[2023-01-12] MEDS: POTASSIUM CHLORIDE 20 MEQ/15 ML UDC NG SCH ×3 (07:17→20:33)
[2023-01-12] MEDS: predniSONE 5 MG TAB NG SCH ×2 (07:17→20:34)
[2023-01-12] MEDS: POLYETHYLENE (MIRALAX) 17 GM PACK PO SCH (07:18)
[2023-01-12] MEDS: METOPROLOL TARTRATE 50 MG TAB NG SCH ×2 (07:18→20:33)
[2023-01-12] MEDS: LACTOBACILLUS ACIDOPHILUS 1 GM PACK PO SCH (07:19)
[2023-01-12] MEDS: INSULIN ASPART PER UNIT CHARGE SQ SCH ×4 (08:57→20:59)
[2023-01-12] MEDS ORDERED: METOPROLOL TARTRATE 50 MG TAB PO STA (10:09)
[2023-01-12] MEDS: rifAMPin 300 MG in DEXTROSE 5% 500 ML IV SCH ×2 (10:40→23:01)
[2023-01-12] MEDS: SCOPOLAMINE 1 MG TDSY TD SCH (10:41)
[2023-01-12] MEDS: ABIRATERONE ACETATE PO SCH (10:41)
--- NOTE | 2023-01-12 11:54 | Pharmacy Report ---
Pharmacy PK ABX Note - Date of Service January 12, 2023 - Assessment and Plan Assessment 01/12: SCr continues to trend upward slightly. Day #13 vancomycin. Continues on levofloxacin and rifampin. 01/10/23 * Random level this AM was 19.1 after 750 mg given yesterday. * Will continue current regimen. 01/08: * SCr elevated again today at 1.12 mg/dL * Last dose of vancomycin was evening of 01/06/23, no dose yesterday * Cefepime changed to levofloxacin 750 mg IV q24h, Rifampin initiated yesterday (01/07) * Remains on TPN 01/06: * Slight bump in SCr noted this morning (0.83 mg/dL vs. 0.59 mg/dL). No updated cultures. Patient remains afebrile w/ no overt leukocytosis. 01/04: Measured trough 23.5 mcg/mL is higher than predicted 20.4 mcg/ml, intermediate model fit. Given high trough, will reduce dose today. Vertebrae culture form 01/01 now with staph species. 01/03: 12/30 Blood cultures / MRSA. Urine culture (indwelling walton) 12/30 Hazel glabrata complex, Hazel albicans/dubliniensis. 12/31 Blood cultures Negative at 48 hours, Vertebrae cultures: no growth, fungal pending. 01/01 blood cultures negative at 24 hours. No visualized vegetation on TTE. Afebrile, normal WBC. ID following. Random level this AM 25.1 does predict therapeutic AUC/AZAEL, however is an intermediate fit. Will obtain timed trough level to further assess dosing. 12/31 77 year old M receiving vancomycin and cefepime for bacteremia. Blood cultures (+) [facility] in 03/16, biofire (+) MRSA. Patient with recent admission for MRSA bacteremia and spinal abscess and was discharged on daptomycin through 01/01. ID consulted. Plan Vancomycin * Current regimen: 750 mg IV every 24 hours * Trough level this AM, 18.4mcg/mL (~23h level), therapeutic. Predicted to achieve ssAUC 504mg/L.hr with a 14% risk of toxicity. * Continue current regimen for now. Closely monitor renal function and repeat level in 48h. Pharmacy will continue to follow and will adjust dose/frequency as necessary. Thank you. Pharmacy has transitioned to AUC monitoring for vancomycin. AUC/AZAEL is the preferred PK/PD target and is associated with decreased risk of nephrotoxicity compared to traditional trough targets.
--- NOTE | 2023-01-12 15:16 | Hospitalist Progress Note ---
Date of Service January 12, 2023 Assessment & Plan (1) Bacteremia: Plan: Patient recently had MRSA bacteremia and was just 2 days away from completing a 6-week course of daptomycin. However presented to the hospital on 12/30 with worsening fatigue and poor appetite. 12/31 blood cultures 03/02 growing gram- positive's in clusters. Source most likely his lumbar area due to recent lumbar abscess and removal of hardware . He is now 4 days s/p I&D lumbar spine with evidence of recurrent epidural abscess. He still has MATTHEW drains in situ. Intraoperative cultures MRSA as well. Currently on vancomycin, Levaquin, rifampin. Appreciate infectious diseases and Ortho spine consultation and recommendations. He will need continued intravenous antibiotic therapy at discharge. (2) Fatigue: Plan: Due to recurrent infection and toxic encephalopathy. Supportive care. Treat underlying conditions. Continue OT and PT (3) Prostate cancer metastatic to bone: Plan: Stage IV with bone mets. Treated by Dr. Liriano. Zytiga is temporarily on hold because it cannot be given through the Dobbhoff tube. Chronic pain treated with acetaminophen and Oxycodone (4) DMII (diabetes mellitus, type 2): Plan: Last A1c was 7.7% on 09/24/2022. ADA diet. Glimepiride on hold. Sliding scale insulin coverage as needed. (5) Atrial fibrillation: Plan: Parenteral metoprolol has been switched to oral route via Dobbhoff. Will use as needed IV metoprolol as needed. Telemetry. Not on systemic anticoagulation. (6) Adrenal insufficiency: Plan: Steroid-dependent. Intravenous hydrocortisone switched to prednisone via NG route on January 11 (7) Spinal stenosis: Plan: Hx of lumbar decompression with Dr. Velazco on 11/04/2022. Instrumentation remains in place (8) Urinary tract infection: Plan: Chronic indwelling Aaron. Currently on Levaquin, rifampin and vancomycin (9) Physical deconditioning: Plan: Patient has been essentially bedbound since his lumbar surgery. He is physically deconditioned. Continue OT/PT (10) Anasarca: Plan: Etiology is most likely due to low oncortic pressure. 2 d echo done 01/01 showed EF 60-65%, with moderate to severe tricuspid regurg. Improved with intravenous Lasix (11) Hypotension: Plan: Intravenous fluids as needed. Hold antihypertensives as needed (12) Toxic encephalopathy: Plan: Resolved after baclofen discontinued. Supportive care. Narcotic medication for back pain control is also contributing. No CO2 retention seen on ABGs. He now also has some metabolic encephalopathy. Supportive care. Plan Dobbhoff feeding tube is now in place as of January 09. TPN has been discontinued. He is alert now and he states he is swallowing and able to eat. Hopefully the Dobbhoff and tube feedings can be discontinued tomorrow, January 13. Eventual return to [facility] care. Unfortunately, PEG tube could not be placed due to unfavorable position of the transverse colon in relation to the stomach. Admission and Anticipated Discharge Date Admission Date: January 01, 2023 Subjective Alert. He is occasionally lucid and occasionally encephalopathic unfortunately. He tells me that he is able to swallow when he is eating. Hopefully we can discontinue the tube feeds and Dobbhoff tube tomorrow, January 13. Metoprolol uptitrated for better heart rate and blood pressure control. Potassium elixir also uptitrated. OT and PT assessments requested. He remains on Levaquin, vancomycin, rifampin. Zytiga has been placed on hold by oncology. Review of Systems 2 Review of Systems: Constitutional-no fever or chills ENT-no blurred vision, no double vision, no epistaxis, no sore throat Respiratory-no cough, no wheezing, no shortness of breath Cardiac-no palpitations, no chest pain, no syncope GI-persistent nausea. Occasional retching. No overt vomiting. No diarrhea, melena, or hematochezia -Aaron catheter in place. Musculoskeletal -nonpitting edema bilateral lower extremities below the knees Skin-scattered ecchymoses both arms Neuro-generalized weakness Psych-flat affect Physical Exam 2 Physical Exam: General-now awake and oriented to name only. He is able to converse. He remains very weak. No fever HEENT-head atraumatic and normocephalic, pupils equal and reactive to light, extraocular muscles intact. Nasogastric Dobbhoff feeding tube in place Neck-no lymphadenopathy or thyromegaly, trachea midline Chest-scattered rhonchi. No inspiratory rales. No wheezing Cardiac-bradycardia has resolved. Normal S1 and S2 Abdomen-normal bowel sounds, nontender, no hepatosplenomegaly Extremities-1+ peripheral edema both lower extremity below the knees GUFoley catheter in place. Urine is now orange color due to rifampin Neuro-no apparent focal deficits. Generalized weakness. Psych-flat affect Results & Data Results & Data Vital Signs (Past 12 Hours) Vital Signs Temp Pulse Pulse Resp BP BP Pulse Ox 01/12/23 14:58 99 H 01/12/23 11:46 36.7 C 111 H 20 122/79 98 01/12/23 08:18 01/12/23 07:47 36.9 C 113 H 20 126/84 97 01/12/23 07:08 99 H 01/12/23 03:46 36.8 C 108 H 18 125/80 98 O2 Del Method O2 Flow Rate 01/12/23 14:58 01/12/23 11:46 Nasal Cannula 2 01/12/23 08:18 Nasal Cannula 2 01/12/23 07:47 Nasal Cannula 2 01/12/23 07:08 01/12/23 03:46 Nasal Cannula 2 Laboratory Results 01/12/23 05:18 01/12/23 05:18 PG Care Time/CCT Total # of Minutes Spent Total Time Spent with Patient: Total time spent is greater than 50% in coordination of care (as documented) at patient's floor/unit and/or counseling patient: Coding Level of Care Code 24058 SUB INP/OBS CARE 3/50MIN Diagnoses Bacteremia R78.81 Fatigue R53.83 Prostate cancer metastatic to bone C61; C79.51 DMII (diabetes mellitus, type 2) E11.9 Atrial fibrillation I48.91 Adrenal insufficiency E27.40 Spinal stenosis M48.00 Spinal region: unspecified Urinary tract infection N39.0 Physical deconditioning R53.81 Anasarca R60.1 Hypotension I95.9 Toxic encephalopathy G92.9 (7) Spinal stenosis Spinal region: unspecified Qualified Code(s): M48.00 - Spinal stenosis, site unspecified
[2023-01-12] MEDS ORDERED: MELATONIN 3 MG TAB PO PRN (18:11)
[2023-01-12] MEDS: levoFLOXacin/D5W 750 MG/150 ML BAG IV SCH (19:36)
[2023-01-12] MEDS: FIBERSOURCE HN 1.2 CAL 1000 ML BAG GT SCH (23:01)
[2023-01-13] MEDS: MENTHOL-ZINC OXIDE 360 APPLN/120 GM TUBE EXT SCH ×3 (01:10→16:43)
[2023-01-13] MEDS: CHECK SCOPOLAMINE PATCH PLACEMENT SCH ×3 (01:10→16:42)
[2023-01-13] MEDS: TUBE FEEDING WATER FLUSH GT SCH ×2 (02:08→09:00)
[2023-01-13] MEDS: VANCOMYCIN HCL 750 MG in SODIUM CHLORIDE 0.9% 250 ML IV SCH (06:01)
[2023-01-13 06:09] LABS: Hematocrit (blood only) 32.3 % (42.0-52.0); Hemoglobin 10.2 g/dl (14.0-18.0); Mean Corpuscular Hemoglobin 29.8 pg (25.0-34.0); Mean Corpuscular Hgb Conc 31.6 g/dL (32.0-36.0); Mean Corpuscular Volume 94.4 fL (80.0-100.0); Mean Platelet Volume 11.2 fL (9.4-12.4); Platelet Count 155 K/uL (130-400); Red Blood Count 3.42 M/uL (4.70-6.10); White Blood Count 9.25 K/ul (4.8-10.8)
[2023-01-13 06:28] LABS: BUN Creatinine Ratio 26.1 (10-20); Calcium 8.9 mg/dl (8.6-10.3); Creatinine Clr Calc Pharmacy 60.4 ml/min; Est GFR (African American) 67.4 ml/min; Est GFR (Non-African American) 58.2 ml/min; Potassium 3.6 mmol/L (3.5-5.1)
[2023-01-13 07:13] LABS: Basophils # (auto) 0.06 K/uL (0.00-0.20); Basophils % (auto) 0.6 %; Eosinophils # (auto) 0.14 K/uL (0.00-0.50); Eosinophils % (auto) 1.5 %; Immature Granulocytes # (auto) 0.75 K/uL (0.01-0.20); Immature Granulocytes % (auto) 8.1 %; Lymphocytes # (auto) 1.46 K/uL (1.20-3.40); Lymphocytes % (auto) 15.8 %; Monocytes # (auto) 1.39 K/uL (0.11-0.59); Neutrophils # (auto) 5.45 K/uL (1.40-6.50); Tear Drop Cells 1+
--- NOTE | 2023-01-13 08:18 | XRay Report ---
XR chest 1V portable HISTORY: dyspnea, suspected aspiration COMPARISON: Chest 01/08/2023. FINDINGS: Multiple overlapping cardiac monitoring leads/tubes within the epigastric region. This resu lts in difficult evaluation of the nasogastric tube. However, the nasogastric tube appears to extend below the diaphragm. The tip is not definitely included on this study. The right PICC appears to term inate at the distal SVC. There are low lung volumes. Bibasilar linear densities favor subsegmental at electasis. No pleural effusions. No pneumothorax. The heart remains mildly enlarged. No evidence for pulmonary edema. There are calcifications within the aortic knob. IMPRESSION: 1. Multiple overlapping cardiac monitoring leads/tubes within the epigastric region. This results in difficult evaluation of the nasogastric tube. However, the nasogastric tube appears to extend below t he diaphragm. The tip is not definitely included on this study. 2. Low lung volumes with bibasilar linear densities suggesting subsegmental atelectasis. ACT 112: Negative or not required by law. Electronically signed by: Orlando Houston M.D. 01/13/2023 8:17 AM
[2023-01-13] MEDS: INSULIN ASPART PER UNIT CHARGE SQ SCH ×4 (09:04→21:06)
[2023-01-13] MEDS: rifAMPin 300 MG in DEXTROSE 5% 500 ML IV SCH ×2 (11:38→23:21)
[2023-01-13] MEDS: ATORVASTATIN 20 MG TAB PO SCH (11:42)
[2023-01-13] MEDS: POTASSIUM CHLORIDE 20 MEQ/15 ML UDC NG SCH ×3 (11:42→21:02)
[2023-01-13] MEDS: predniSONE 5 MG TAB NG SCH ×2 (11:42→21:06)
[2023-01-13] MEDS: METOPROLOL TARTRATE 50 MG TAB NG SCH ×2 (11:43→21:02)
[2023-01-13] MEDS: dilTIAZem HCl 60 MG TAB PO SCH ×3 (11:44→21:00)
[2023-01-13] MEDS: POLYETHYLENE (MIRALAX) 17 GM PACK PO SCH (11:44)
[2023-01-13] MEDS: CYANOCOBALAMIN (B-12) 500 MCG TABLET PO SCH (11:44)
[2023-01-13] MEDS: CALCIUM 600MG + VIT D 400 IU TAB PO SCH (11:45)
[2023-01-13] MEDS: PROSOURCE NO CARB 30 ML/PKT GT SCH (11:46)
[2023-01-13] MEDS: LACTOBACILLUS ACIDOPHILUS 1 GM PACK PO SCH (11:46)
[2023-01-13] MEDS: HEPARIN SOD 5,000 UNIT/0.5 ML VIAL SQ SCH ×2 (11:47→21:01)
[2023-01-13] MEDS: LANSOPRAZOLE 30 MG SOLTAB NG SCH (11:47)
[2023-01-13] MEDS: ABIRATERONE ACETATE PO SCH (11:47)
--- NOTE | 2023-01-13 15:11 | Hospitalist Progress Note ---
Date of Service January 13, 2023 Assessment & Plan (1) Bacteremia: Plan: Patient recently had MRSA bacteremia and was just 2 days away from completing a 6-week course of daptomycin. However presented to the hospital on 12/30 with worsening fatigue and poor appetite. 12/31 blood cultures 03/02 growing gram- positive's in clusters. Source most likely his lumbar area due to recent lumbar abscess and removal of hardware . He is now 4 days s/p I&D lumbar spine with evidence of recurrent epidural abscess. He still has MATTHEW drains in situ. Intraoperative cultures MRSA as well. Currently on vancomycin, Levaquin, rifampin. Appreciate infectious diseases and Ortho spine consultation and recommendations. He will need continued intravenous antibiotic therapy at discharge. (2) Fatigue: Plan: Due to recurrent infection and toxic encephalopathy. Supportive care. Treat underlying conditions. Continue OT and PT (3) Prostate cancer metastatic to bone: Plan: Stage IV with bone mets. Treated by Dr. Liriano. Zytiga is temporarily on hold because it cannot be given through the Dobbhoff tube. This will be restarted when he is swallowing effectively. Chronic pain treated with acetaminophen and Oxycodone (4) DMII (diabetes mellitus, type 2): Plan: Last A1c was 7.7% on 09/24/2022. ADA diet. Glimepiride on hold. Sliding scale insulin coverage as needed. (5) Atrial fibrillation: Plan: Parenteral metoprolol has been switched to oral route. Will use IV metoprolol as needed. Telemetry. Not on systemic anticoagulation. (6) Adrenal insufficiency: Plan: Steroid-dependent. Intravenous hydrocortisone has been switched to oral prednisone (7) Spinal stenosis: Plan: Hx of lumbar decompression with Dr. Velazco on 11/04/2022. Instrumentation remains in place (8) Urinary tract infection: Plan: Chronic indwelling Aaron. Currently on Levaquin, rifampin and vancomycin (9) Physical deconditioning: Plan: Patient has been essentially bedbound since his lumbar surgery. He is physically deconditioned. Continue OT/PT (10) Anasarca: Plan: Etiology is most likely due to low oncortic pressure. 2 d echo done 01/01 showed EF 60-65%, with moderate to severe tricuspid regurg. Improved with intravenous Lasix (11) Hypotension: Plan: Intravenous fluids as needed. Hold antihypertensives as needed (12) Toxic encephalopathy: Plan: Resolved after baclofen discontinued. Supportive care. Narcotic medication for back pain control is also contributing. No CO2 retention seen on ABGs. He now also has some metabolic encephalopathy. Supportive care. Plan He is alert now and the Dobbhoff feeding tube and enteral feedings will be discontinued. Diet has been ordered. TPN was previously discontinued. Eventual return to [facility] care. Unfortunately, PEG tube could not be placed due to unfavorable position of the transverse colon in relation to the stomach. Admission and Anticipated Discharge Date Admission Date: January 01, 2023 Subjective Awake and alert. No distress. He seems to be alert enough to swallow effectively. Dobbhoff tube will be removed and tube feedings discontinued. Potassium has improved to 3.6. Blood pressure and heart rate are acceptable. Review of Systems 2 Review of Systems: Constitutional-no fever or chills ENT-no blurred vision, no double vision, no epistaxis, no sore throat Respiratory-no cough, no wheezing, no shortness of breath Cardiac-no palpitations, no chest pain, no syncope GI-persistent nausea. Occasional retching. No overt vomiting. No diarrhea, melena, or hematochezia -Aaron catheter in place. Musculoskeletal -nonpitting edema bilateral lower extremities below the knees Skin-scattered ecchymoses both arms Neuro-generalized weakness Psych-flat affect Physical Exam 2 Physical Exam: General-awake and alert, oriented to name and place. He is able to converse. He remains very weak. No fever HEENT-head atraumatic and normocephalic, pupils equal and reactive to light, extraocular muscles intact. Nasogastric Dobbhoff feeding tube in place Neck-no lymphadenopathy or thyromegaly, trachea midline Chest-scattered rhonchi. No inspiratory rales. No wheezing Cardiac-bradycardia has resolved. Normal S1 and S2 Abdomen-normal bowel sounds, nontender, no hepatosplenomegaly Extremities-1+ peripheral edema both lower extremity below the knees GUFoley catheter in place. Urine is now orange color due to rifampin Neuro-no apparent focal deficits. Generalized weakness. Psych-affect has improved Results & Data Results & Data Vital Signs (Past 12 Hours) Vital Signs Temp Pulse Pulse Resp BP BP Pulse Ox 01/13/23 14:08 105 H 01/13/23 11:42 36.5 C 112 H 32 H 110/60 98 01/13/23 08:00 01/13/23 07:58 36.6 C 98 H 36 H 108/76 93 01/13/23 07:22 36.6 C 99 H 20 107/73 97 01/13/23 07:00 108 H 01/13/23 05:49 98 H 22 104/72 98 01/13/23 03:45 36.8 C 102 H 24 87/63 L 96 O2 Del Method O2 Flow Rate 01/13/23 14:08 01/13/23 11:42 Room Air 01/13/23 08:00 Nasal Cannula 2 01/13/23 07:58 Room Air 01/13/23 07:22 Nasal Cannula 2 01/13/23 07:00 01/13/23 05:49 Nasal Cannula 2 01/13/23 03:45 Nasal Cannula 2 Laboratory Results 01/13/23 05:28 01/13/23 05:28 PG Care Time/CCT Total # of Minutes Spent Total Time Spent with Patient: Total time spent is greater than 50% in coordination of care (as documented) at patient's floor/unit and/or counseling patient: Coding Level of Care Code 41764 SUB INP/OBS CARE 3/50MIN Diagnoses Bacteremia R78.81 Fatigue R53.83 Prostate cancer metastatic to bone C61; C79.51 DMII (diabetes mellitus, type 2) E11.9 Atrial fibrillation I48.91 Adrenal insufficiency E27.40 Spinal stenosis M48.00 Spinal region: unspecified Urinary tract infection N39.0 Physical deconditioning R53.81 Anasarca R60.1 Hypotension I95.9 Toxic encephalopathy G92.9 (7) Spinal stenosis Spinal region: unspecified Qualified Code(s): M48.00 - Spinal stenosis, site unspecified
[2023-01-13] MEDS ORDERED: ONDANSETRON INJ 2 MG/ML 2 ML VIAL IV STA (18:22)
[2023-01-13] MEDS: levoFLOXacin/D5W 750 MG/150 ML BAG IV SCH (19:11)
[2023-01-14] MEDS: CHECK SCOPOLAMINE PATCH PLACEMENT SCH ×3 (00:14→15:24)
[2023-01-14] MEDS: MENTHOL-ZINC OXIDE 360 APPLN/120 GM TUBE EXT SCH ×3 (00:15→15:24)
[2023-01-14 05:58] LABS: Hematocrit (blood only) 32.2 % (42.0-52.0); Hemoglobin 10.3 g/dl (14.0-18.0); Mean Corpuscular Hemoglobin 30.4 pg (25.0-34.0); Mean Platelet Volume 10.4 fL (9.4-12.4); Platelet Count 159 K/uL (130-400); RDW Standard Deviation 55.8 fL (36.4-46.3); Red Blood Count 3.39 M/uL (4.70-6.10); White Blood Count 9.33 K/ul (4.8-10.8)
[2023-01-14] MEDS ORDERED: VANCOMYCIN LEVEL ONE (06:00)
[2023-01-14] MEDS: VANCOMYCIN HCL 750 MG in SODIUM CHLORIDE 0.9% 250 ML IV SCH (06:02)
[2023-01-14 06:16] LABS: BUN Creatinine Ratio 25.7 (10-20); Calcium 9.6 mg/dl (8.6-10.3); Est GFR (African American) 71.8 ml/min; Est GFR (Non-African American) 61.9 ml/min; Potassium 3.4 mmol/L (3.5-5.1)
[2023-01-14 06:42] LABS: ALC (manual) 0.75 K/uL (1.2-3.4); Basophils # (manual) 0.09 K/uL (0-0.2); Basophils % (manual) 1 %; Eosinophils # (manual) 0.47 K/uL (0-0.50); Eosinophils % (manual) 5 %; Lymphocytes # (manual) 0.75 K/uL (1.2-3.4); Lymphocytes % (manual) 8 %; Metamyelocytes # (manual) 0.28 K/uL (0-0); Metamyelocytes % (manual) 3 %; Monocytes # (manual) 0.37 K/uL (0.11-0.59); Monocytes % (manual) 4 %; Myelocytes # (manual) 0.19 K/uL (0-0); Myelocytes % (manual) 2 %; Neutrophils % (manual) 75 %; Promyelocytes # (manual) 0.19 K/uL (0-0); Promyelocytes % (manual) 2 %; RBC Morphology Unremarkable
--- NOTE | 2023-01-14 08:46 | Pharmacy Report ---
Pharmacy PK ABX Note - Date of Service January 14, 2023 - Assessment and Plan Assessment 01/14: SCr stable at 1-1.2 past 5 days, will continue to monitor. Daily serum creatinine ordered. Reviewed vancomycin level, predicted to achieve a therapeutic AUC/AZAEL (469 mg/L.hr) with a high probability (~100%). Willard is to continue on IV antibiotics for at least 8 weeks per ID consult. He continues on levofloxacin and rifampin as well as vancomycin. 01/12: SCr continues to trend upward slightly. Day #13 vancomycin. Continues on levofloxacin and rifampin. 01/10/23 * Random level this AM was 19.1 after 750 mg given yesterday. * Will continue current regimen. 01/08: * SCr elevated again today at 1.12 mg/dL * Last dose of vancomycin was evening of 01/06/23, no dose yesterday * Cefepime changed to levofloxacin 750 mg IV q24h, Rifampin initiated yesterday (01/07) * Remains on TPN 01/06: * Slight bump in SCr noted this morning (0.83 mg/dL vs. 0.59 mg/dL). No updated cultures. Patient remains afebrile w/ no overt leukocytosis. 01/04: Measured trough 23.5 mcg/mL is higher than predicted 20.4 mcg/ml, intermediate model fit. Given high trough, will reduce dose today. Vertebrae culture form 01/01 now with staph species. 01/03: 12/30 Blood cultures / MRSA. Urine culture (indwelling walton) 12/30 Hazel glabrata complex, Hazel albicans/dubliniensis. 12/31 Blood cultures Negative at 48 hours, Vertebrae cultures: no growth, fungal pending. 01/01 blood cultures negative at 24 hours. No visualized vegetation on TTE. Afebrile, normal WBC. ID following. Random level this AM 25.1 does predict therapeutic AUC/AZAEL, however is an intermediate fit. Will obtain timed trough level to further assess dosing. 12/31 77 year old M receiving vancomycin and cefepime for bacteremia. Blood cultures (+) [facility] in 2/, biofire (+) MRSA. Patient with recent admission for MRSA bacteremia and spinal abscess and was discharged on daptomycin through 01/01. ID consulted. Plan Vancomycin * Current regimen: 750 mg IV every 24 hours * Closely monitor renal function and repeat level in 48h. Pharmacy will continue to follow and will adjust dose/frequency as necessary. Thank you. Pharmacy has transitioned to AUC monitoring for vancomycin. AUC/AZAEL is the preferred PK/PD target and is associated with decreased risk of nephrotoxicity compared to traditional trough targets.
[2023-01-14] MEDS: POLYETHYLENE (MIRALAX) 17 GM PACK PO SCH (09:11)
[2023-01-14] MEDS: INSULIN ASPART PER UNIT CHARGE SQ SCH ×4 (09:14→21:57)
[2023-01-14] MEDS: CALCIUM 600MG + VIT D 400 IU TAB PO SCH (09:18)
[2023-01-14] MEDS: HEPARIN SOD 5,000 UNIT/0.5 ML VIAL SQ SCH ×2 (09:18→22:00)
[2023-01-14] MEDS: ATORVASTATIN 20 MG TAB PO SCH (09:19)
[2023-01-14] MEDS: LANSOPRAZOLE 30 MG SOLTAB NG SCH (09:19)
[2023-01-14] MEDS: POTASSIUM CHLORIDE 20 MEQ/15 ML UDC NG SCH ×4 (09:19→21:57)
[2023-01-14] MEDS: METOPROLOL TARTRATE 50 MG TAB NG SCH ×2 (09:20→21:57)
[2023-01-14] MEDS: dilTIAZem HCl 60 MG TAB PO SCH ×2 (09:21→13:35)
[2023-01-14] MEDS: CYANOCOBALAMIN (B-12) 500 MCG TABLET PO SCH (09:21)
[2023-01-14] MEDS: LACTOBACILLUS ACIDOPHILUS 1 GM PACK PO SCH (09:21)
[2023-01-14 09:22] LABS: Albumin Level 2.7 gm/dl (3.4-5.0); Magnesium 1.4 mg/dl (1.7-2.4)
[2023-01-14] MEDS: predniSONE 5 MG TAB NG SCH (09:22)
[2023-01-14] MEDS: rifAMPin 300 MG in DEXTROSE 5% 500 ML IV SCH ×2 (10:08→21:58)
[2023-01-14] MEDS: ABIRATERONE ACETATE PO SCH (10:10)
[2023-01-14] MEDS: ONDANSETRON INJ 2 MG/ML 2 ML VIAL IV PRN (12:26)
[2023-01-14] MEDS: MAGNESIUM SULFATE / D5W 1 GM/100 ML BAG IV SCH ×3 (16:19→20:35)
--- NOTE | 2023-01-14 16:27 | Hospitalist Progress Note ---
Date of Service January 14, 2023 Assessment & Plan (1) Acute metabolic encephalopathy: Plan: severe highly worrisome - in light of rising CRP, lactic acidosis, immunocompromised state, etc - for recurrent infection repeat blood cultures send u/a and urine cx; broaden abx and/or add anti-fungal therapy if needed d/c scopolamine patch - could contribute to delirious state d/c ativan (2) Lactic acidosis: Plan: worrisome for impending sepsis hold PO prednisone; place on stress-dose IV hydrocortisone defer on copious IV fluids - he has anasarca in the setting of hypoalbuminemia recheck blood cultures send u/a and urine cultures I did discuss his case with urology as previous CT abd/pelvis shows chronic severe hydroureteronephrosis on right with ? small distal ureteral stone? could the right sided of the urinary tract be a source for infection?? need for any intervention of this? will d/w urology will have Dr Velazco re-eval the lumbar spine region tomorrow MATTHEW drains x [address] since his 01/01 I & D procedure but have not been draining anything I spoke with pt's by phone and discussed these acute issues in detail (3) Hypomagnesemia: Plan: replace 3 grams mag sulfate IV repeat level am (4) Anasarca: Plan: severe 2nd to newly found hypothyroidism, hypoalbuminemia, copious IV hydration from fluids/abx/etc, other factors albumin today is <3 due to hypotension unable to provide diuresis safely start synthroid protein supplements when able to take PO (NG tube was removed yesterday & NG tube feedings stopped) (5) Prostate cancer metastatic to bone: Plan: stage 4 prostate ca, dx mid chronically on Zytiga with prednisone 5mg BID both on hold previously followed with [facility] [place] U[facility] (6) Atrial fibrillation: Plan: permanent/chronic typically on metoprolol BID + diltiazem TID in light of low-normal or low BPs reduce both meds slightly (7) DMII (diabetes mellitus, type 2): Plan: cont novolog SSI (8) 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: Plan: s/p I & D -- 11/20/22 s/p I & D -- 01/01/[address] Velazco both I & D cultures with MRSA (9) MRSA bacteremia: Plan: source - #8 remains on IV vanco + rifampin worrisome that he has developed what appears to be impending sepsis despite the above 2 abx as well as levofloxacin for gram negatives (grew out klebsiella, proteus, and enterobacter from surface wound culture of back on 12/15/22) appreciate ID assistance (10) Hypoalbuminemia: Plan: albumin < 3 2nd to protein calorie malnutrition and failure to thrive had been receiving NG tube feedings NG tube removed yesterday cleared for PO intake by speech today but has severe anorexia coupled with severely altered MS (11) Morbid obesity with BMI of 40.0-44.9, adult: Plan: BMI low 40s (12) Candiduria: Plan: previous urine cx with sarita glabrata, etc does he have a recurrent candidal UTI that requires Rx?? especially in light of #13? could UTI be the cause of what seems to be impending recurrent sepsis?? await u/a and urine cx (13) Hydronephrosis of right kidney: Plan: severe, right-sided chronic recent CT a/p x 2 with ??small distal ureteral stone on right in setting of this chronic right-sided hydroureteronephrosis could this be the source of recurrent sepsis?? discussed his case with Dr Medina from [facility] [place] [facility] Urology Dr Medina reviewed his record even if we wanted to attempt cystoscopy to place a stent there is heavy concern that a procedure such as this would be very difficult if not impossible it is very hard to know if the urinary tract is acting as reservoir for any infection consider formal urology consultation in am tomorrow depending on how things go tonight (14) Current chronic use of systemic steroids: Plan: prednisone 5mg BID for stage 4 prostate ca (with zytiga) hold PO pred place on IV hydrocortisone (15) Protein calorie malnutrition: Plan: mod-severe (16) Spinal stenosis: Plan: severe lumbar stenosis s/p lumbar decompression-fusion procedure 11/04/[address] Velazco complicated by MRSA epidural abscess formation s/p I & D - 11/20/22 - by Dr Velazco additional I/D of epidural space also completed by Dr Velazco 01/01/23 this admission's epidural fluid culture also grew MRSA (17) Hypothyroidism: Plan: TSH high FT4 is borderline low c/w primary hypothyroidism in light of clinical state start synthroid 50mcg daily Plan care discussed with pt's Leonel by phone lengthy discussion had with Leonel re: pt's failure to thrive/altered MS/concern for recurrent infection/poor nutrition/anasarca/etc can Willard overcome all of the above, complex issues at play?? Leonel is Willard's POA and Leonel asks that all necessary Rx be given at this time discussed care with Dr Medina from urology discussed care with night resident physician very complex issues requiring complex coordination of Rx total time today about 80 minutes Admission and Anticipated Discharge Date Admission Date: January 01, 2023 Subjective patient very lethargic during the visit when I called his name he awoke enough to answer 2-3 basic questions with 1-2 word answers quickly went back to sleep per nursing staff has been lethargic off/on during the day was able to take his PO meds this am although with difficulty at lunch-time he was offered food but took "bites" seen by speech therapy - mastication was quite prolonged during the visit when asked if he was in pain he stated no no vomiting by report MATTHEW drains from back - no output per staff Review of Systems Review of Systems: Unobtainable due to cognitive status Physical Exam Physical Exam: gen - obese, looks very ill/toxic, severely altered/lethargic, tachypneic mouth - MM dry neck - no obvious JVD heart - irregularly irregular, s1 s2, rate 90-100 lungs - diffuse b/l crackles, tachypnea, no retractions however abd - distended, BS+, no obvious tenderness ext - anasarca with edema x 4 limbs, pulses b/l feet 2+ vascular - right arm PICC line in place, insertion site appears intact/clean psych - a/o x person only, very lethargic, altered Results & Data Results & Data Vital Signs (Past 12 Hours) Vital Signs Temp Pulse Pulse Resp BP Pulse Ox O2 Del Method 01/14/23 16:12 36.3 C L 92 H 16 108/68 99 Nasal Cannula 01/14/23 14:04 102 H 01/14/23 11:43 36.7 C 95 H 14 101/65 97 Room Air 01/14/23 10:50 01/14/23 07:59 36.8 C 101 H 16 121/84 100 Nasal Cannula 01/14/23 07:27 Nasal Cannula O2 Flow Rate 01/14/23 16:12 3 01/14/23 14:04 01/14/23 11:43 01/14/23 10:50 3 01/14/23 07:59 2 01/14/23 07:27 2 Laboratory Results Laboratory Results - last 24 hr 01/14/23 01/14/23 01/14/23 05:24 08:25 12:08 WBC 9.33 RBC 3.39 L Hgb 10.3 L Hct 32.2 L MCV 95.0 MCH 30.4 MCHC 32.0 RDW Std Deviation 55.8 H RDW Coeff of Tramaine 16.0 H Plt Count 159 MPV 10.4 Immature Gran % (Auto) Neut % (Auto) Lymph % (Auto) Garvin % (Auto) Eos % (Auto) Baso % (Auto) Neut # (Auto) Lymph # (Auto) Garvin # (Auto) Eos # (Auto) Baso # (Auto) Immature Gran # (Auto) Neutrophils % (Manual) 75 Lymphocytes % (Manual) 8 Monocytes % (Manual) 4 Eosinophils % (Manual) 5 Basophils % (Manual) 1 Metamyelocytes % (Man) 3 Myelocytes % (Man) 2 Promyelocytes % (Man) 2 Neutrophils # (Manual) 7.00 H Total Absolute Neuts 7.00 H Lymphocytes # (Manual) 0.75 L Total Abs Lymphocytes 0.75 L Monocytes # (Manual) 0.37 Eosinophils # (Manual) 0.47 Basophils # (Manual) 0.09 Metamyelocytes # (Man) 0.28 H Myelocytes # (Manual) 0.19 H Promyelocytes # (Man) 0.19 H RBC Morphology Unremarkable Polychromasia Echinocytes VBG pH VBG pCO2 VBG pO2 VBG HCO3 VBG O2 Saturation VBG Base Excess Sodium 134 L Potassium 3.4 L Chloride 103 Carbon Dioxide 24 Anion Gap 7 BUN 29 H Creatinine 1.13 Est Cr Clr Drug Dosing 65.0 Est GFR ( Amer) 71.8 Est GFR (Non-Af Amer) 61.9 BUN/Creatinine Ratio 25.7 H Glucose 130 H POC Glucose 134 H 220 H Lactate Calcium 9.6 Magnesium 1.4 L Total Bilirubin Direct Bilirubin AST ALT Alkaline Phosphatase Ammonia C-Reactive Protein Total Protein Albumin 2.7 L TSH Free T4 Urine Color Urine Appearance Urine pH Ur Specific [place] Urine Protein Urine Glucose (UA) Urine Ketones Urine Blood Urine Nitrite Urine Bilirubin Urine Urobilinogen Ur Leukocyte Esterase Urine WBC (Auto) Urine RBC (Auto) U Hyaline Cast (Auto) U Epithel Cells (Auto) Urine Bacteria (Auto) Amorphous Sediment Urine Yeast Random Vancomycin 15.4 01/14/23 01/14/23 16:32 17:09 WBC RBC Hgb Hct MCV MCH MCHC RDW Std Deviation RDW Coeff of Tramaine Plt Count MPV Immature Gran % (Auto) Neut % (Auto) Lymph % (Auto) Garvin % (Auto) Eos % (Auto) Baso % (Auto) Neut # (Auto) Lymph # (Auto) Garvin # (Auto) Eos # (Auto) Baso # (Auto) Immature Gran # (Auto) Neutrophils % (Manual) Lymphocytes % (Manual) Monocytes % (Manual) Eosinophils % (Manual) Basophils % (Manual) Metamyelocytes % (Man) Myelocytes % (Man) Promyelocytes % (Man) Neutrophils # (Manual) Total Absolute Neuts Lymphocytes # (Manual) Total Abs Lymphocytes Monocytes # (Manual) Eosinophils # (Manual) Basophils # (Manual) Metamyelocytes # (Man) Myelocytes # (Manual) Promyelocytes # (Man) RBC Morphology Polychromasia Echinocytes VBG pH 7.30 L VBG pCO2 49 VBG pO2 36 VBG HCO3 24 VBG O2 Saturation 61.4 VBG Base Excess -2.8 Sodium Potassium Chloride Carbon Dioxide Anion Gap BUN Creatinine Est Cr Clr Drug Dosing Est GFR ( Amer) Est GFR (Non-Af Amer) BUN/Creatinine Ratio Glucose POC Glucose 175 H Lactate 2.2 H* Calcium Magnesium Total Bilirubin 0.5 Direct Bilirubin 0.2 AST 15 ALT 10 Alkaline Phosphatase 47 Ammonia 48.0 C-Reactive Protein 12.21 H Total Protein 4.3 L Albumin 2.3 L TSH 16.811 H Free T4 0.63 Urine Color Urine Appearance Urine pH Ur Specific [place] Urine Protein Urine Glucose (UA) Urine Ketones Urine Blood Urine Nitrite Urine Bilirubin Urine Urobilinogen Ur Leukocyte Esterase Urine WBC (Auto) Urine RBC (Auto) U Hyaline Cast (Auto) U Epithel Cells (Auto) Urine Bacteria (Auto) Amorphous Sediment Urine Yeast Random Vancomycin PG Care Time/CCT Total # of Minutes Spent Total Time Spent with Patient: Total time spent is greater than 50% in coordination of care (as documented) at patient's floor/unit and/or counseling patient: Prolonged Care Time Prolonged Care Time: Yes Total Prolonged Care Time: 80 Coding Level of Care Code 51625 SUB INP/OBS CARE 3/50MIN (25 - SIGNIFICANT, SEPARATELY IDENTIFIABLE ) Diagnoses Acute metabolic encephalopathy G93.41 Lactic acidosis E87.20 Hypomagnesemia E83.42 Anasarca R60.1 Prostate cancer metastatic to bone C61; C79.51 Atrial fibrillation I48.91 DMII (diabetes mellitus, type 2) E11.9 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
[2023-01-14 17:21] LABS: Base Excess VBG -2.8 mEq/L; HCO3 VBG 24 mmol/L; Oxygen Saturation VBG 61.4 %; PCO2 VBG 49 mmHg (38-50); PO2 VBG 36 mmHg
[2023-01-14 17:54] LABS: Albumin Level 2.3 gm/dl (3.4-5.0); Bilirubin Direct 0.2 mg/dl (0-0.2); Bilirubin,Total 0.5 mg/dl (0.2-1.0); C Reactive Protein 12.21 mg/dl (0-0.5); Total Protein 4.3 gm/dl (6.0-8.3)
[2023-01-14 18:45] LABS: T4 Free Thyroxine 0.63 ng/dl (0.61-1.60)
[2023-01-14] MEDS: HYDROCORTISONE SOD 100 MG in SYRINGE 0 ML IV SCH (21:56)
[2023-01-14] MEDS: levoFLOXacin/D5W 750 MG/150 ML BAG IV SCH (21:56)
[2023-01-14] MEDS: dilTIAZem HCL 30 MG TAB PO SCH (21:57)
[2023-01-15] MEDS: MENTHOL-ZINC OXIDE 360 APPLN/120 GM TUBE EXT SCH ×4 (00:40→23:50)
[2023-01-15] MEDS: CHECK SCOPOLAMINE PATCH PLACEMENT SCH ×4 (00:40→23:50)
[2023-01-15 03:10] LABS: Appearance Urine Turbid (Clear); Bacteria Urine Automated Negative (Negative); Blood Urine 3+ (Negative); Color Urine Dark Yellow; Epithelial Cell Urine Auto >30 /lpf (0-5); Glucose Urine UA Negative (Negative); Ketones Urine Trace (Negative); Leukocyte Esterase Urine 3+ (Negative); Nitrite Urine Positive (Negative); Protein Urine 1+ (Negative); Specific Gravity Urine 1.018 (1.000-1.030); Urobilinogen Urine Negative (Negative); WBC Urine Automated >30 /hpf (0-5); pH Urine 5.5 (4.5-7.5)
[2023-01-15 03:20] LABS: Bilirubin Urine 1+ (Negative)
[2023-01-15 04:31] LABS: RBC Urine Automated 0-4 /hpf (0-4)
[2023-01-15 04:32] LABS: Amorphous Sediment Urine Present (None Prsent)
[2023-01-15] MEDS: HYDROCORTISONE SOD 100 MG in SYRINGE 0 ML IV SCH ×3 (04:35→21:00)
[2023-01-15 04:45] LABS: Hemoglobin 9.4 g/dl (14.0-18.0); Mean Corpuscular Hgb Conc 32.4 g/dL (32.0-36.0); Mean Corpuscular Volume 92.7 fL (80.0-100.0); Mean Platelet Volume 10.8 fL (9.4-12.4); Platelet Count 170 K/uL (130-400); RDW Coefficient of Variation 15.6 % (11.5-14.5); RDW Standard Deviation 53.1 fL (36.4-46.3); Red Blood Count 3.13 M/uL (4.70-6.10)
[2023-01-15 05:05] LABS: BUN Creatinine Ratio 22.8 (10-20); C Reactive Protein 15.57 mg/dl (0-0.5); Calcium 9.3 mg/dl (8.6-10.3); Creatinine Clr Calc Pharmacy 64.5 ml/min; Est GFR (Non-African American) 61.3 ml/min; Magnesium 1.8 mg/dl (1.7-2.4); Potassium 3.8 mmol/L (3.5-5.1)
[2023-01-15 05:12] LABS: Basophils # (auto) 0.06 K/uL (0.00-0.20); Basophils % (auto) 0.5 %; Echinocytes 1+; Eosinophils # (auto) 0.03 K/uL (0.00-0.50); Eosinophils % (auto) 0.2 %; Immature Granulocytes # (auto) 0.93 K/uL (0.01-0.20); Immature Granulocytes % (auto) 7.1 %; Lymphocytes # (auto) 1.03 K/uL (1.20-3.40); Lymphocytes % (auto) 7.9 %; Monocytes # (auto) 1.37 K/uL (0.11-0.59); Monocytes % (auto) 10.5 %; Neutrophils # (auto) 9.68 K/uL (1.40-6.50); Neutrophils % (auto) 73.8 %; Polychromasia 1+
[2023-01-15] MEDS: VANCOMYCIN HCL 750 MG in SODIUM CHLORIDE 0.9% 250 ML IV SCH (06:01)
[2023-01-15] MEDS ORDERED: LEVOTHYROXINE SODIUM 50 MCG TABLET PO SCH (06:30)
--- NOTE | 2023-01-15 07:57 | XRay Report ---
SINGLE VIEW CHEST CLINICAL HISTORY: Hypoxia. FINDINGS: An AP, portable, upright chest radiograph is compared to study dictated 01/13/2023 and corre lated with chest CT dated 01/04/2023. The examination is degraded by portable technique and apical lo rdotic positioning. A right PICC line is unchanged in position. The heart is enlarged noting atherosc lerotic calcification of the thoracic aorta. There is mild pulmonary vascular congestion. There are l ow lung volumes. Small pleural effusions are noted with dependent consolidation. Foci of parenchymal scarring are seen throughout both lung. No pneumothorax is seen. The skeletal structures are osteopen ic. The skeletal structures are osteopenic. The bony thorax is grossly intact. IMPRESSION: 1. Cardiomegaly with mild pulmonary vascular congestion. 2. Low lung volumes, small pleural effusions, and dependent consolidation. ACT 112: Negative or not required by law. Electronically signed by: Jesus Alberto Briones M.D. 01/15/2023 7:56 AM
[2023-01-15] MEDS: INSULIN ASPART PER UNIT CHARGE SQ SCH ×4 (08:44→20:59)
[2023-01-15] MEDS: POLYETHYLENE (MIRALAX) 17 GM PACK PO SCH (09:13)
[2023-01-15] MEDS: HEPARIN SOD 5,000 UNIT/0.5 ML VIAL SQ SCH ×2 (09:14→20:59)
[2023-01-15] MEDS: METOPROLOL TARTRATE 50 MG TAB NG SCH ×2 (09:15→21:00)
[2023-01-15] MEDS: dilTIAZem HCL 30 MG TAB PO SCH ×3 (09:15→20:59)
[2023-01-15] MEDS: POTASSIUM CHLORIDE 20 MEQ/15 ML UDC NG SCH ×2 (09:16→21:00)
[2023-01-15] MEDS: LANSOPRAZOLE 30 MG SOLTAB NG SCH (09:16)
[2023-01-15] MEDS: ATORVASTATIN 20 MG TAB PO SCH (09:16)
[2023-01-15] MEDS: LACTOBACILLUS ACIDOPHILUS 1 GM PACK PO SCH (09:17)
[2023-01-15] MEDS: CALCIUM 600MG + VIT D 400 IU TAB PO SCH (09:17)
[2023-01-15] MEDS: CYANOCOBALAMIN (B-12) 500 MCG TABLET PO SCH (09:18)
[2023-01-15] MEDS: rifAMPin 300 MG in DEXTROSE 5% 500 ML IV SCH ×2 (10:26→22:14)
[2023-01-15] MEDS: ACETAMINOPHEN 325 MG TAB PO PRN (10:47)
--- NOTE | 2023-01-15 12:37 | CT Scan Report ---
CT lumbar spine wo con CLINICAL HISTORY: recent MRSA epidural abscess; eval reaccumulation TECHNIQUE: Multidetector row helical CT of the lumbar spine was performed without administration of i ntravenous contrast. Coronal and sagittal reformations were obtained. Automated dose lowering techniq ues and/or adjustment according to patient size were utilized for this exam. CT DOSE: 1327.39 mGy.cm Comparison: Comparison is made to MRI lumbar spine 12/31/2022 and 11/19/2022. CT lumbar spine 11/15/19 23 FINDINGS: For counting purposes, the last complete intervertebral disc space is considered L5-S1. No acute fractures are identified. Posterior fixation hardware spans L3-S1. There is a drainage shankar ter terminating in the posterior soft tissues at the level of L5. There is an ill-defined fluid colle ction, significantly decreased from prior exam, with a few tiny foci of gas. Vertebral body alignment is within normal limits. Surrounding soft tissues are unremarkable. IMPRESSION: Previously noted fluid collection has continued to decrease in size. Drainage catheter is noted in th e fluid collection. ACT 112: Negative or not required by law. Electronically signed by: Paulino Saha M.D. 01/15/2023 12:35 PM
[2023-01-15 16:03] LABS: Base Excess VBG -7.5 mEq/L; HCO3 VBG 20 mmol/L; Oxygen Saturation VBG < 60.0 %; PCO2 VBG 48 mmHg (38-50); PO2 VBG 34 mmHg; pH VBG 7.23 (7.36-7.41)
[2023-01-15 16:25] LABS: BUN Creatinine Ratio 21.5 (10-20); Calcium 9.4 mg/dl (8.6-10.3); Creatinine Clr Calc Pharmacy 61.2 ml/min; Est GFR (African American) 66.1 ml/min; Potassium 3.7 mmol/L (3.5-5.1)
[2023-01-15] MEDS: levoFLOXacin/D5W 750 MG/150 ML BAG IV SCH (18:45)
[2023-01-15 20:20] VITALS: BP 98/68; RESP 18; TEMP 96.6; O2SAT 95
[2023-01-15] MEDS ORDERED: ATROPINE SULFATE 1% OP SOLN 5 ML BTL SL PRN (20:48)
[2023-01-15] MEDS ORDERED: GLYCOPYRROLATE 0.2 MG/ML VIAL IV PRN (20:48)
[2023-01-15] MEDS ORDERED: ONDANSETRON INJ 2 MG/ML 2 ML VIAL IV PRN (20:48)
[2023-01-15] MEDS ORDERED: LORazepam 0.5 MG in SYRINGE 0.25 ML IV PRN (20:48)
--- NOTE | 2023-01-15 20:56 | Hospitalist Progress Note ---
Date of Service January 15, 2023 Assessment & Plan (1) Comfort measures only status: Plan: patient has had a protracted stay marked by MRSA bacteremia, recurrent MRSA epidural abscess s/p I & D, failure to thrive, anasarca, malnutrition, volume overload, dysphagia with NG tube feedings, bed-bound status, altered MS, etc. despite maximal medical efforts including triple antibiotic therapy for his epidural abscess/MRSA bacteremia he has developed recurrent severe sepsis in the last 24 hours source uncertain but unlikely to be the lumbar spine based on available imaging, lack of MATTHEW drain output, etc. source could be the urinary tract given the severe hydro on right and ?small distal ureteral stone along with very dirty u/a he could have a PICC line infection/bacteremia c diff colitis has been ruled out with neg c diff testing again very worrisome he has developed severe sepsis despite his triple abx coverage despite institution of IV stress dose steroids he has declined considerably over the last 12-24 hours if the urinary tract is indeed the source our urology team felt that he would likely need decompression of the right kidney with a percutaneous drain/nephrostomy tube (previous attempts at accessing the right ureter via cystoscope in the past were not successful per urology) he is unfit to travel to tertiary care and, even if we were successful in getting him to a [facility] [place] [facility] [place] I am not optimistic this would provide meaningful benefit his risk of mortality is VERY high in light of his overall fragile status discussed everything in detail today with José his we had multiple pete discussions re: Willard's poor prognosis despite maximal medical efforts over the last 2 weeks José understands that Willard has been very ill for several months and acknowledges he has continued to decline recently José in agreement with transitioning to comfort measures only status stop IV steroids, IV/PO abx, other routine meds order morphine 2mg IV q2h prn ativan prn scop patch nausea meds NC o2 etc d/c tele --> move to med/surg support given to José (2) Palliative care patient: Plan: as above (3) Severe sepsis: Plan: source uncertain but urinary tract high possibility likely not the lumbar spine no c diff cannot rule out pneumonia but unlikely cannot rule out PICC line infection other source is possible no Rx - transitioning to CANINE DEPUTY see #1 (4) Acute metabolic encephalopathy: Plan: severe 2nd to recurrent sepsis (5) Lactic acidosis: Plan: ongoing 2nd to severe sepsis (6) Hypomagnesemia: (7) Anasarca: Plan: severe 2nd to newly found hypothyroidism, hypoalbuminemia, copious IV hydration from fluids/abx/etc, other factors (8) Prostate cancer metastatic to bone: Plan: stage 4 prostate ca, dx mid had been on chronic Zytiga with prednisone 5mg BID stop both, transition to CANINE DEPUTY previously [place] [facility] (9) Atrial fibrillation: Plan: permanent/chronic stopping routine meds (10) DMII (diabetes mellitus, type 2): Plan: stop BSGs, etc (11) 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: Plan: s/p I & D -- 11/20/22 s/p I & D -- 01/01/[address] Velazco both I & D cultures with MRSA repeat imaging today with NO evidence of reaccumulation of epidural fluid appreciate all of Dr Velazco's help today (12) MRSA bacteremia: Plan: source - #8 stopping abx - see #1 above (13) Hypoalbuminemia: Plan: albumin < 3 2nd to protein calorie malnutrition and failure to thrive (14) Morbid obesity with BMI of 40.0-44.9, adult: Plan: BMI low 40s (15) Candiduria: Plan: previous urine cx with sarita glabrata, etc may indeed have active UTI (see #1) will not pursue Rx (16) Hydronephrosis of right kidney: Plan: severe, right-sided chronic recent CT a/p x 2 with ??small distal ureteral stone on right in setting of this chronic right-sided hydroureteronephrosis could this be the source of recurrent sepsis?? discussed his case with Dr Medina from [facility] [place] discussed this with [facility] today (IT PROJECT MANAGER on-call, who discussed these findings with Dr Arnold) see #1 above no transfer to tertiary care; transition to CANINE DEPUTY status (17) Current chronic use of systemic steroids: Plan: prednisone 5mg BID for stage 4 prostate ca (with zytiga) stopping steroids (18) Protein calorie malnutrition: Plan: mod-severe (19) Spinal stenosis: Plan: severe lumbar stenosis s/p lumbar decompression-fusion procedure 11/04/[address] Velazco complicated by MRSA epidural abscess formation s/p I & D - 11/20/22 - by Dr Velazco additional I/D of epidural space also completed by Dr Velazco 01/01/23 this admission's epidural fluid culture also grew MRSA (20) Hypothyroidism: Plan: stop meds transition to CANINE DEPUTY today Plan VERY complex care coordination once again multiple phone calls with [facility], Dr Velazco, etc multiple discussions with pt's nurse multiple discussions with José, pt's and POA multiple bedside visits total time today about 90 minutes Admission and Anticipated Discharge Date Admission Date: January 01, 2023 Subjective saw patient multiple times today had fever this am saw patient not too long following such he was awake but speech was slurry/garbled and at times hard to understand explained to him that he was declining despite significant supportive care, triple abx, etc explained further that recurrent infection could be due to UTI and that he would require transfer to tertiary care several times he said "have you talked with José" multiple times he actually fell asleep while talking following the visit I spoke with Dr Velazco we discussed obtaining CT lumbar spine to reassess for fluid reaccumulation in the epidural space this was done and did NOT show such Dr Velazco saw patient and José at bedside; advised against any surgical exploration of the epidural space due to low suspicion that fevers/etc were from the back thru the day patient became even more lethargic more altered more tachypneic called José - asked him to come to hospital upon José's arrival we discussed all of the above discussed that source of recurrent infection may be urinary tract in origin discussed that urology here advised tx to tertiary care for ? nephrostomy tube for severe hydronephrosis on right discussed pursuing such vs keeping here and trialing more supportive care (broadening abx, BIPAP for resp support, etc) vs transitioning to comfort care ultimately comfort care pathway was chosen José contacted their industrial garage servicer and several other family/friends José was ok with d/c of IV abx and other meds Review of Systems Review of Systems: denied pain in any location but otherwise unable to obtain any meaningful ROS Physical Exam Physical Exam: gen - obese, looks very toxic, severely altered/lethargic, tachypneic - worse than yesterday mouth - MM dry neck - no obvious JVD heart - irregularly irregular, s1 s2, tachy lungs - tachypnea, mild subcostal retractions, hypopneas noted abd - distended, BS+, no obvious tenderness ext - anasarca with edema x 4 limbs, pulses b/l feet 2+ vascular - right arm PICC line in place psych - very lethargic Results & Data Results & Data Vital Signs (Past 12 Hours) Vital Signs Temp Pulse Pulse Pulse Resp BP BP 01/15/23 20:19 35.9 C L 92 H 18 98/68 L 01/15/23 18:06 85 21 01/15/23 15:27 36.5 C 91 H 14 108/67 01/15/23 14:02 93 H 01/15/23 12:55 99 H 01/15/23 12:45 36.5 C 98 H 18 95/52 L 01/15/23 09:22 Pulse Ox O2 Del Method O2 Flow Rate FiO2 01/15/23 20:19 95 Room Air 01/15/23 18:06 93 40 01/15/23 15:27 91 Room Air 01/15/23 14:02 01/15/23 12:55 01/15/23 12:45 92 Room Air 01/15/23 09:22 97 Room Air, Nasal Cannula 2 Laboratory Results Laboratory Results - last 24 hr 01/15/23 01/15/23 01/15/23 03:01 04:32 08:14 WBC 13.10 H RBC 3.13 L Hgb 9.4 L Hct 29.0 L MCV 92.7 MCH 30.0 MCHC 32.4 RDW Std Deviation 53.1 H RDW Coeff of Tramaine 15.6 H Plt Count 170 MPV 10.8 Immature Gran % (Auto) 7.1 Neut % (Auto) 73.8 Lymph % (Auto) 7.9 Sioux % (Auto) 10.5 Eos % (Auto) 0.2 Baso % (Auto) 0.5 Neut # (Auto) 9.68 H Lymph # (Auto) 1.03 L Sioux # (Auto) 1.37 H Eos # (Auto) 0.03 Baso # (Auto) 0.06 Immature Gran # (Auto) 0.93 H Polychromasia 1+ Echinocytes 1+ VBG pH VBG pCO2 VBG pO2 VBG HCO3 VBG O2 Saturation VBG Base Excess Sodium 129 L Potassium 3.8 Chloride 101 Carbon Dioxide 20 L Anion Gap 8 BUN 26 H Creatinine 1.14 Est Cr Clr Drug Dosing 64.5 Est GFR ( Amer) 71.0 Est GFR (Non-Af Amer) 61.3 BUN/Creatinine Ratio 22.8 H Glucose 215 H POC Glucose 222 H Lactate 2.0 Calcium 9.3 Magnesium 1.8 C-Reactive Protein 15.57 H Urine Color Dark Yellow Urine Appearance Turbid A Urine pH 5.5 Ur Specific [place] 1.018 Urine Protein 1+ H Urine Glucose (UA) Negative Urine Ketones Trace H Urine Blood 3+ H Urine Nitrite Positive A Urine Bilirubin 1+ H Urine Urobilinogen Negative Ur Leukocyte Esterase 3+ H Urine WBC (Auto) >30 H Urine RBC (Auto) 0-4 U Hyaline Cast (Auto) 1-5 U Epithel Cells (Auto) >30 H Urine Bacteria (Auto) Negative Amorphous Sediment Present A Urine Yeast Not Reportable Stl C. diff Tox B Gene 01/15/23 01/15/23 01/15/23 12:37 15:50 16:36 WBC RBC Hgb Hct MCV MCH MCHC RDW Std Deviation RDW Coeff of Tramaine Plt Count MPV Immature Gran % (Auto) Neut % (Auto) Lymph % (Auto) Sioux % (Auto) Eos % (Auto) Baso % (Auto) Neut # (Auto) Lymph # (Auto) [place]oux # (Auto) Eos # (Auto) Baso # (Auto) Immature Gran # (Auto) Polychromasia Echinocytes VBG pH 7.23 L VBG pCO2 48 VBG pO2 34 VBG HCO3 20 VBG O2 Saturation < 60.0 VBG Base Excess -7.5 Sodium 129 L Potassium 3.7 Chloride 101 Carbon Dioxide 20 L Anion Gap 8 BUN 26 H Creatinine 1.21 Est Cr Clr Drug Dosing 61.2 Est GFR ( Amer) 66.1 Est GFR (Non-Af Amer) 57.0 BUN/Creatinine Ratio 21.5 H Glucose 209 H POC Glucose 265 H 229 H Lactate 2.3 H* Calcium 9.4 Magnesium C-Reactive Protein Urine Color Urine Appearance Urine pH Ur Specific [place] Urine Protein Urine Glucose (UA) Urine Ketones Urine Blood Urine Nitrite Urine Bilirubin Urine Urobilinogen Ur Leukocyte Esterase Urine WBC (Auto) Urine RBC (Auto) U Hyaline Cast (Auto) U Epithel Cells (Auto) Urine Bacteria (Auto) Amorphous Sediment Urine Yeast Stl C. diff Tox B Gene 01/15/23 01/15/23 17:30 20:15 WBC RBC Hgb Hct MCV MCH MCHC RDW Std Deviation RDW Coeff of Tramaine Plt Count MPV Immature Gran % (Auto) Neut % (Auto) Lymph % (Auto) Sioux % (Auto) Eos % (Auto) Baso % (Auto) Neut # (Auto) Lymph # (Auto) [place] # (Auto) Eos # (Auto) Baso # (Auto) Immature Gran # (Auto) Polychromasia Echinocytes VBG pH VBG pCO2 VBG pO2 VBG HCO3 VBG O2 Saturation VBG Base Excess Sodium Potassium Chloride Carbon Dioxide Anion Gap BUN Creatinine Est Cr Clr Drug Dosing Est GFR ( Amer) Est GFR (Non-Af Amer) BUN/Creatinine Ratio Glucose POC Glucose 197 H Lactate Calcium Magnesium C-Reactive Protein Urine Color Urine Appearance Urine pH Ur Specific [place] Urine Protein Urine Glucose (UA) Urine Ketones Urine Blood Urine Nitrite Urine Bilirubin Urine Urobilinogen Ur Leukocyte Esterase Urine WBC (Auto) Urine RBC (Auto) U Hyaline Cast (Auto) U Epithel Cells (Auto) Urine Bacteria (Auto) Amorphous Sediment Urine Yeast Stl C. diff Tox B Gene Negative Cdiff Gene Diagnostic Findings Lumbar Spine CT 01/15/23 10:38 CT lumbar spine wo con CLINICAL HISTORY: recent MRSA epidural abscess; eval reaccumulation TECHNIQUE: Multidetector row helical CT of the lumbar spine was performed without administration of intravenous contrast. Coronal and sagittal reformations were obtained. Automated dose lowering techniques and/or adjustment according to patient size were utilized for this exam. CT DOSE: 1327.39 mGy.cm Comparison: Comparison is made to MRI lumbar spine 12/31/2022 and 11/19/2022. CT lumbar spine 11/14/2022 FINDINGS: For counting purposes, the last complete intervertebral disc space is considered L5-S1. No acute fractures are identified. Posterior fixation hardware spans L3-S1. There is a drainage catheter terminating in the posterior soft tissues at the level of L5. There is an ill-defined fluid collection, significantly decreased from prior exam, with a few tiny foci of gas. Vertebral body alignment is within normal limits. Surrounding soft tissues are unremarkable. IMPRESSION: Previously noted fluid collection has continued to decrease in size. Drainage catheter is noted in the fluid collection. ACT 112: Negative or not required by law. Electronically signed by: Paulino Saah M.D. 01/15/2023 12:35 PM PG Care Time/CCT Total # of Minutes Spent Total Time Spent with Patient: Total time spent is greater than 50% in coordination of care (as documented) at patient's floor/unit and/or counseling patient: Prolonged Care Time Prolonged Care Time: Yes Total Prolonged Care Time: 90 Coding Level of Care Code 34689 SUB INP/OBS CARE 3/50MIN (25 - SIGNIFICANT, SEPARATELY IDENTIFIABLE ) Diagnoses Comfort measures only status Z51.5 Palliative care patient Z51.5 Severe sepsis A41.9; R65.20 Acute metabolic encephalopathy G93.41 Lactic acidosis E87.20 Hypomagnesemia E83.42 Anasarca R60.1 Prostate cancer metastatic to bone C61; C79.51 Atrial fibrillation I48.91 DMII (diabetes mellitus, type 2) E11.9 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 G06.1 MRSA bacteremia R78.81; B95.62 Hypoalbuminemia E88.09 Morbid obesity with BMI of 40.0-44.9, adult E66.01; Z68.41 Candiduria B37.49 Hydronephrosis of right kidney N13.30 Current chronic use of systemic steroids Z79.52 Protein calorie malnutrition E46 Spinal stenosis M48.00 Spinal region: unspecified Hypothyroidism E03.9 Additional Codes Prolonged Care Time - Prolonged Care Time: Yes ([id number]) (19) Spinal stenosis Spinal region: unspecified Qualified Code(s): M48.00 - Spinal stenosis, site unspecified
[2023-01-15] MEDS: MoRPHine SULFATE 2 MG/ML CARP IV PRN (21:59)
[2023-01-15 22:18] VITALS: PULSE 81
[2023-01-16] MEDS: MoRPHine SULFATE 2 MG/ML CARP IV PRN ×4 (00:17→08:38)
[2023-01-16] MEDS ORDERED: VANCOMYCIN LEVEL ONE (06:00)
[2023-01-16] MEDS: MENTHOL-ZINC OXIDE 360 APPLN/120 GM TUBE EXT SCH ×2 (09:37→16:57)
[2023-01-16] MEDS: CHECK SCOPOLAMINE PATCH PLACEMENT SCH ×2 (09:38→16:57)
[2023-01-16] MEDS: SCOPOLAMINE 1 MG TDSY TD SCH (09:38)
[2023-01-16] MEDS ORDERED: STAT IV Infusion **Titration per Protocol STA (09:56)
[2023-01-16] MEDS ORDERED: MoRPHine SULF/NSS 100 MG/100 ML BAG IV SCH (10:30)
--- NOTE | 2023-01-16 21:35 | Hospitalist Progress Note ---
Date of Service January 16, 2023 Assessment & Plan (1) Comfort measures only status: Plan: patient has had a protracted stay marked by MRSA bacteremia, recurrent MRSA epidural abscess s/p I & D, failure to thrive, anasarca, malnutrition, volume overload, dysphagia with NG tube feedings, bed-bound status, altered MS, etc. despite maximal medical efforts including triple antibiotic therapy for his epidural abscess/MRSA bacteremia he had developed recurrent severe sepsis 01/14 into 01/15 source uncertain but unlikely to be the lumbar spine based on available imaging, lack of MATTHEW drain output, etc. source could have been the urinary tract given the severe hydro on right and ?small distal ureteral stone along with very dirty u/a he could have a PICC line infection/bacteremia c diff colitis ruled out with neg c diff testing transitioned to comfort care pathway 01/15 in the evening change PRN morphine to morphine infusion ativan prn scop patch nausea meds NC o2 etc support again given to José, his , at bedside (2) Palliative care patient: Plan: as above (3) Severe sepsis: Plan: source uncertain but urinary tract high possibility see #1 no Rx --> comfort care measures only (4) Acute metabolic encephalopathy: Plan: severe 2nd to recurrent sepsis, acidosis, etc comfort care in place (5) Lactic acidosis: Plan: 2nd to severe sepsis (6) Hypomagnesemia: (7) Anasarca: Plan: severe 2nd to newly found hypothyroidism, hypoalbuminemia, copious IV hydration from fluids/abx/etc, other factors (8) Prostate cancer metastatic to bone: Plan: stage 4 prostate ca, dx mid had been on chronic Zytiga with prednisone 5mg BID stop both, transition to [employer] previously followed with [facility] [place] [facility] (9) Atrial fibrillation: Plan: permanent/chronic (10) DMII (diabetes mellitus, type 2): (11) 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: Plan: s/p I & D -- 11/20/22 s/p I & D -- 01/01/[address] Velazco both I & D cultures with MRSA appreciate all of Dr Velazco's help this admission (12) MRSA bacteremia: Plan: all abx stopped (13) Hypoalbuminemia: Plan: albumin < 3 2nd to protein calorie malnutrition and failure to thrive (14) Morbid obesity with BMI of 40.0-44.9, adult: Plan: BMI low 40s (15) Candiduria: (16) Hydronephrosis of right kidney: Plan: severe, right-sided chronic (17) Current chronic use of systemic steroids: Plan: all steroids stopped comfort care pathway in place (18) Protein calorie malnutrition: Plan: mod-severe (19) Spinal stenosis: Plan: severe lumbar stenosis s/p lumbar decompression-fusion procedure 11/04/[address] Velazco complicated by MRSA epidural abscess formation s/p I & D - 11/20/22 - by Dr Velazco additional I/D of epidural space also completed by Dr Velazco 01/01/23 this admission's epidural fluid culture also grew MRSA (20) Hypothyroidism: Plan anticipate pt's passing in the next 48 hours Admission and Anticipated Discharge Date Admission Date: January 01, 2023 Subjective pt's at bedside last pm patient would open eyes and try to talk however, had distress overnight and required morphine essentially every 2 hours, and now on morphine infusion as the night went on became less & less responsive did not open eyes to voice or touch during the exam Review of Systems Review of Systems: Unobtainable due to reduced consciousness Physical Exam Physical Exam: gen - tachypneic, hypopneas noted, obtunded mouth - MM dry heart - irregularly irregular, s1 s2, tachy lungs - tachypnea, mild subcostal retractions, hypopneas noted abd - distended, BS+, no obvious tenderness ext - anasarca with edema x 4 limbs, feet cool to touch today Results & Data Results & Data Vital Signs (Past 12 Hours) Vital Signs O2 Del Method O2 Flow Rate 01/16/23 10:31 Nasal Cannula 3 PG Care Time/CCT Total # of Minutes Spent Total Time Spent with Patient: Total time spent is greater than 50% in coordination of care (as documented) at patient's floor/unit and/or counseling patient: Coding Level of Care Code 44360 SUB INP/OBS CARE 03/06MIN Diagnoses Comfort measures only status Z51.5 Palliative care patient Z51.5 Severe sepsis A41.9; R65.20 Acute metabolic encephalopathy G93.41 Lactic acidosis E87.20 Hypomagnesemia E83.42 Anasarca R60.1 Prostate cancer metastatic to bone C61; C79.51 Atrial fibrillation I48.91 DMII (diabetes mellitus, type 2) E11.9 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 G06.1 MRSA bacteremia R78.81; B95.62 Hypoalbuminemia E88.09 Morbid obesity with BMI of 40.0-44.9, adult E66.01; Z68.41 Candiduria B37.49 Hydronephrosis of right kidney N13.30 Current chronic use of systemic steroids Z79.52 Protein calorie malnutrition E46 Spinal stenosis M48.00 Spinal region: unspecified Hypothyroidism E03.9 (19) Spinal stenosis Spinal region: unspecified Qualified Code(s): M48.00 - Spinal stenosis, site unspecified
[2023-01-17] MEDS: CHECK SCOPOLAMINE PATCH PLACEMENT SCH ×3 (00:43→17:16)
[2023-01-17] MEDS: MENTHOL-ZINC OXIDE 360 APPLN/120 GM TUBE EXT SCH ×3 (00:44→17:16)
[2023-01-17] MEDS ORDERED: HYOSCYAMINE SULFATE 0.125 MG TAB SL PRN (18:03)
--- NOTE | 2023-01-17 20:55 | Discharge Summary ---
Date of Service Admission Date December 30, 2022 Date and Time of Date of : 01/17/23 Time of : 19:05 Admission HPI Per Admitting Provider Willard is a 77-year-old male with PMH of. Patient came from [facility] for worsening fatigue. Patient was reportedly acting "off" this weekend, and reporting that he did not feel well. A large bruise was reported on his back and streaking rash on abdomen. Patient endorses itching on the abdomen this weekend, however he reports that the itching is resolved. When patient asked why he was here, the patient is unable to provide an answer. He reports that they "don't have what [he] needs at [facility]". Patient is A&Ox3. Hypotensive at 95/58 at time of admission. ED course: NSS 1000 mL Acetaminophen 1000 mg Fentanyl 50 mcg Lasix 20 mg ROS: Patient endorses CALLE, increased fatigue, LBP (ongoing), and LE weakness. Patient denies fever, chills, CP, pleuritic CP, SOB, abdominal pain, N/V/D, burning with urination, blood in urine / stool, or numbness/tingling/pain in the legs. Principal Diagnosis Severe sepsis Discharge Exam at time of - pupils fixed/dilated; no response to pain or voice; no palpable pulse; no audible heart tones; no spontaneous respiratory effort Discharge Data Allergies Allergy/AdvReac Type Severity Reaction Status Date / Time cat dander Allergy Severe CAN CAUSE Verified 12/30/22 20:35 ASTHMA ATTACK-itchy eyes, congestion gabapentin AdvReac Intermediate Hallucinati Verified 12/30/22 20:35 ng tramadol AdvReac Intermediate Hallucinati Verified 12/30/22 20:35 ng Consultations Consult Infectious Diseases Routine Consult Palliative Care Routine Consult Gastroenterology Routine Consult Oncology Routine PT, OT, speech therapy Procedures Performed Operation Date: 01/09/23 17:15 Actual Procedures p EGD Biopsy Cytology - Cruz Carlson MD Ordered Studies 12/30/22 16:55 CT angio chest PE protocol Stat 12/31/22 09:42 MR lumbar spine wo con Routine 01/04/23 13:32 CT Abd and Pelvis [CT abd pelvis wo con] Routine 01/04/23 14:39 CT chest diagnostic wo con Routine 01/07/23 18:29 CT Abd and Pelvis [CT abd pelvis wo con] Urgent 01/15/23 10:38 CT lumbar spine wo con Stat Hospital Course (1) Severe sepsis: Mr Walker presented to [facility] with fatigue, shortness of breath, confusion, and hypotension. He had been rehabbing at [facility] and was being treated for a prior episode of MRSA bacteremia and an epidural abscess from the lumbar spine region with IV antibiotics. The epidural abscess had been drained on November 20, 2022, by Dr Jose Velazco during his prior hospitalization (11/14/22 to 11/27/22). That abscess also grew MRSA. Mr Walker's epidural abscess came about as a result of lumbar spinal stenosis surgery that took place in October 2022 at [facility]. During this hospitalization his admission blood cultures again grew MRSA. He also required repeat incision & drainage of a recurrent lumbar spinal epidural abscess by Dr Velazco on 01/01/23. Intra-op cultures once more grew MRSA. He was recovering from his recurrent bacteremia/epidural abscess and despite maximal medical efforts he overall was doing poorly. He had severe dysphagia, failure to thrive, hypoalbuminemia/protein calorie malnutrition, etc. His dysphagia required the use of an NG feeding tube temporarily. Mentation was very poor. He had anasarca. He was bed-bound. On 01/14/23 Mr Walker began to worsen again despite being on triple-antibiotic therapy for his recent bacteremia/epidural abscess (rifampin, levaquin, and vancomycin). He had evidence of mild lactic acidosis, worsening blood pressure, worsening mentation, etc. On the morning of 01/15/23 he developed recurrent fever. Respiratory status worsened with development of distress/tachypnea and hypercapnea. He had evidence of volume overload/pulmonary edema. Urinalysis was worrisome for possible UTI. Repeat blood/urine cultures were dispatched. Repeat lumbar spine CT did not show recurrent seroma/abscess formation. Prior CT abd/pelvis showed severe right-sided hydroureteronephrosis and ?small stone at the UVJ. There was concern that perhaps the urinary tract was the source for his fever and this episode of severe sepsis (rather than the lumbar spine). Discussions were held with Mr Walker's spouse regarding his poor prognosis. It was felt that in order to provide Mr Walker optimal treatment he would need transfer to a tertiary care center to potentially decompress his right kidney by way of a percutaneous nephrostomy tube. By this point, however, Mr Walker was too unstable to transfer and was not responding to medical therapies. He would have needed intubation/mech ventilation to surmount this new episode of illness. However, he had already expressed his desire for DNR/DNI at a previous time. On the evening of 01/15/23 Mr Walker was made comfort care after thorough discussion with his spouse. He remained on comfort care measures until his peaceful passing on the evening of 01/17/23. (2) Lactic acidosis: (3) Acute metabolic encephalopathy: (4) MRSA bacteremia: (5) 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: (6) Candiduria: (7) Prostate cancer metastatic to bone: (8) Atrial fibrillation: (9) DMII (diabetes mellitus, type 2): (10) Hydronephrosis of right kidney: (11) Current chronic use of systemic steroids: (12) Hypothyroidism: (13) Morbid obesity with BMI of 40.0-44.9, adult: (14) Dysphagia: (15) Protein calorie malnutrition: (16) Hypoalbuminemia: (17) Hyponatremia: Total Time Total Time Spent Total Time Spent (In Minutes): 25 Discharge Plan Discharge Items Patient Disposition: Other Date/Time: 01/17/23 19:05 Coding Level of Care Code 94689 IN/OBS DISCH 30 MIN/LESS Diagnoses Severe sepsis A41.9; R65.20 Lactic acidosis E87.20 Acute metabolic encephalopathy G93.41 MRSA bacteremia R78.81; B95.62 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 G06.1 Candiduria B37.49 Prostate cancer metastatic to bone C61; C79.51 Atrial fibrillation I48.91 DMII (diabetes mellitus, type 2) E11.9 Hydronephrosis of right kidney N13.30 Current chronic use of systemic steroids Z79.52 Hypothyroidism E03.9 Morbid obesity with BMI of 40.0-44.9, adult E66.01; Z68.41 Dysphagia R13.10 Protein calorie malnutrition E46 Hypoalbuminemia E88.09 Hyponatremia E87.1
--- NOTE | 2023-01-17 20:55 | Death Pronouncement Note ---
Date of Service January 17, 2023 Pronouncement Note Admission Date January 01, 2023 Date and Time of Date of : 01/17/23 Time of : 19:05 Preliminary Cause of (1) Severe sepsis: Additional Data Confirmation of : no pulse, no respirations, no heart sounds and pupils fixed and dilated Pronouncement Performed By: Attending Physician Family: at bedside Attending/PCP notified?: Yes Attending physician: Patrice Banks MD Was code activated?: No Autopsy requested?: No motion picture film examiner notified?: No Coding Level of Care Code None Diagnoses Severe sepsis A41.9; R65.20
--- OUTSIDE RECORDS SUMMARY | 2023-02-12 13:42 | External Medical Summary | Summary of Care ---
Author Name Unknown Organization [facility] Address [address] [facility] [place] [address] Phone [phone] Care Team Providers Care Knuckle Bender Name Role Phone Kings Rios DO Primary Care Provider Encounter Details Date Type Department Care Team (Late st Contact Info) Description 01/09/2023 Orders Only Gastroenterology, [facility] [address] [place] [id number] Cruz Carlson MD [address] [place] [id number] Allergies Active Allergy Reactions Criticality Noted Date Comments Cat Dander 08/23/2003 Tilactase 12/02/2011 Gastro sx's Other - Environmental 03/27/2004 documented as of this encounter (statuses as of 01/09/2023) Medications Medication Sig Dispensed Refills Start Date End Date Status SERTRALINE HCL 100 MG PO TABS one tablet daily 0 Active leuprolide acetate, 4 Month, (LUPRON DEPOT) 30 MG KITIndications:one injection every 4 months. Inject 30 mg into a large muscle once. Indications: one injection every 4 months. 0 Active Glucose Blood (ONETOUCH ULTRA BLUE) STRP Use as directed daily. 100 Strip 3 07/26/2016 Active ZYTIGA 500 MG TABS Take 2 Tablets by mouth in the morning. 0 10/18/2016 Active PredniSONE (DELTASONE) 5 MG Tablet Take 1 Tablet by mouth in the morning and 1 Tablet before bedtime. Current tapering dose until 10/24/22, then 5 mg twice daily. 0 10/02/2016 Active omeprazole (PRILOSEC) 20 MG CPDR Take 1 Cap by mouth daily. 90 Cap 3 08/17/2018 Active atorvaSTATin (LIPITOR) 20 MG Tablet Take 1 Tab by mouth daily. 90 Tab 3 10/01/2018 Active Metoprolol Succinate ER (TOPROL XL) 200 MG [id number], goal to be determined Take 1 Tab by mouth daily. 90 Tab 3 11/02/2018 Active amLODIPine (NORVASC) 10 MG Tablet Take 1 Tab by mouth daily. 90 Tab 3 12/07/2018 Active lisinopril (PRINIVIL) 20 MG TabletIndications:Esse ntial hypertension with goal blood pressure less than 140/90 Take 1 Tab by mouth daily. 90 Tab 3 12/07/2018 Active Baclofen 10 MG Oral Tablet (Lioresal) Take 1 Tablet by mouth 3 times a day. 0 Active Glimepiride 2 MG Oral Tablet (Amaryl) Take 1 Tablet by mouth daily before breakfast. 0 Active Loratadine 10 MG Oral Tablet (Claritin) Take 1 Tablet by mouth in the morning. 0 Active Multivitamin Adult (Minerals) Oral Tablet Take 1 Tablet by mouth in the morning. 0 Active oxyCODONE HCl ER 10 MG Oral Tablet ER 12 Hour Abuse-Deterrent (OxyCONTIN)Indications :Spinal stenosis of lumbar region with neurogenic claudication,Herniated intervertebral disc of lumbar spine,Intractable pain Take 1 Tablet by mouth in the morning and 1 Tablet before bedtime. Ongoing therapy. 20 Tablet 0 10/23/2022 Active Ondansetron HCl 4 MG Oral Tablet Take 1 Tablet by mouth every 8 hours as needed for Nausea. 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 Irritable bowel syndrome 11/19/2001 Spinal stenosis documented as of this encounter (statuses as of 01/09/2023) Resolved Problems Problem Noted Date Diagnosed Date Resolved Date Atrial fibrillation 09/02/2016 10/25/19 23 PURE HYPERCHOLESTEROLEM 12/26/200301/10 Overview: Per Lipid Taxonomy. Blepharochalasis 03/29/2003 02/19/2006 HTN, (White Coat) 03/27/2015 documented as of this encounter (statuses as of 01/09/2023) Immunizations Name Administration Dates Next Due Pneumococcal Conjugate Vacc, 13 Valent (Prevnar) 09/20/2014 Pneumococcal Polysaccharide PPV23 (Pneumovax) 09/20/2010 SEASONAL INFLUENZA, PF, 6 M & Above, IM , (FLULAVAL or FLUZONE) 12/08/2017 Seasonal Influenza, Quadriva lent, No Preserve, IM 12/06/2016,11/28/2014 Seasonal Influenza, Split, I IV3, With Preserve, Inj 11/08/2015,11/08/2015,12/15/2013,11/06,11/25/2007,12/25/2006 Seasonal Influenza, Trivalen t, Adjuvanted, 65+ yrs 11/23/2018 TDAP (age 10 and older)(Boostrix) 07/22/2017 TDAP (age 11 and older)(Adacel) 02/18/2007,07/12 Varicella Zoster Vaccine (Adult) 11/06/2012 Zoster Vaccine Recombinant (Shingrix) 01/28/2019 ,11/23/2018 documented as of this encounter Social History Tobacco Use Types Packs/Day Years Used Date Smoking Tobacco: Former Cigarettes 0.5 10 Q uit: 02/10/1987 Smokeless Tobacco: Never Comments:quit about 1987 Alcohol Use Standard Drinks/Week Comments No 0 (1 standard drink = 0.6 oz pur e alcohol) no ETOH for several months PHQ-2 Answer Date Recorded PHQ-2 Score -1 10/31/2019 Sex and Gender Information Value Date Recorded Sex Assigned at Not on file Gender Identity Not on file Sexual Orientation Not on file documented as of this encounter Plan of Treatment Health Maintenance Due Date Last Done Comments Diabetic Foot Exam 1963 Hepatitis B (1 of 3 - Risk 3-dose series) 2004 Albumin/Creatinine Ratio 07/12/2006 07/12/2005 Diabetic Eye Exam 07/11/2019 07/10/2018 HbA1c 09/29/2019 03/31/2019, 01/12, 06/09/2018, Additional history exists Depression Screening 12/16/2019 12/15/2018 COVID-19 Vaccine ( season) 2022 11/22/2020, 04/13/2020, 03/23/2020 Influenza Vaccine (FLU shot) (#1) 2022 2019, 11/23/2018, 12/08/2017, Additional history exists GFR 10/25/2023 10/24/2022, 10/11, 07/14/2018, Additional history exists DTaP,Tdap,and Td Vaccines (4 - Td or Tdap) 07/23/2027 07/22/2017, 02/18/2007, 07/12/2005 Pneumococcal Vaccine: 65+ Years Completed 09/20/2014, 09/20/2010 Zoster Vaccines Completed 01/28/2019, 11/10, 11/06/2012 GARDASIL-HPV IMMUNIZATION SERIES Aged Out No longer eligible based on patient's age to complete this topic MENINGOCOCCAL (MENACTRA/MENVEO) Aged Out No longer eligible based on patient's age to complete this topic documented as of this encounter Medical Devices Not on filedocumented as of this encounter Procedures Procedure Name Priority Date/Time Associated Diagnosis Comments UPPER GI ENDOSCOPY 01/09/2023 documented in this encounter Results * UPPER GI ENDOSCOPY (01/09/2023) 01/09/2023 Cruz Carlson MD GASTRO UPPER documented in this encounter Care Teams Knuckle Bender Relationship Specialty Start Date End Date Kings Rios DO [address] [place] [address] PCP - General Family Medicine 10/21/22 documented as of this encounter
== END 2023-01-17 23:49 | disposition expired | DRG 853 ==
LOC: ED 14:17 → EDINP 14:17 → SUATTDRO 22:00 → 2W 22:33 → SUATTDRO 01-01 10:59 → 3E 01-15 23:17